=== PATIENT | male | born 1970 | race Hispanic/Latino ===

== ENCOUNTER 2018-07-05 11:04 | Inpatient (IN) | payer OTHER ==
--- OUTSIDE RECORDS SUMMARY | 2018-07-05 11:09 | XMS REPORT | Continuity of Care Document ---
:1970 Author Organization Interface Problems Problem Status Onset Classification Date Comments Source Date Reported Discharge 02/06/20 02/13/2016 Diagnosis: [facility] VOMITTING, COUGH Active 02/06/20 WITH BLOOD 16 [facility] Discharge 08/10/19 08/13/2015 Diagnosis: 16 [facility] Cholelithiasis Discharge 08/10/19 08/13/2015 Diagnosis: 16 [facility] Abdominal pain ABDOMINAL PAIN Active 08/10/19 16 [facility] Discharge 09/01/19 09/04/2014 Diagnosis: 15 [facility] Conjunctivitis PINK EYE, Active 09/01/19 CONGESTION 15 [facility] EAR PAIN Active 09/21/19 14 [facility] LOWER BACK PAIN/ Active 03/31/19 INJURY 14 [facility] Abscess Resolved Problem 02/13/2016 [facility] Diabetes mellitus Resolved Problem 02/13/2016 [facility] Has seen Resolved Problem 02/13/[address] - [facility] diabetes Hyperlipidemia Resolved Problem 02/13/2016 [facility] Hypertension Resolved Problem 02/13/2016 [facility] Abdominal hernia Resolved Problem 02/13/2016 [facility] OTHER NONSPECIFIC Active ABNORMAL FINDING [facility] OF Medications Medication Details Route Status Patient Ordering Order Source Instructions Provider Date Protonix 40 mg, 1 tab, Inactive Route: PO, 2015 [facility] Drug form: ECTAB, Before Dinner, Start date: 02/10/16 16:30:00 SECURITY COORDINATOR, Duration: 30 day, Stop date: 03/10/16 16:30:00 CSTNotes: Tablet should not be chewed or crushed. (Same as: Protonix) Amoxicillin 875 MG 875 mg=1 tab, Active / Clavulanate 125 PO, Q12H, # 20 2015 [facility] MG Oral Tablet tab, 0 [Augmentin 875-mg] Refill(s) doxycycline 100 mg=1 tab, Inactive monohydrate 100 mg PO, Q12H, X 10 2015 oral tablet day, # 20 tab, 0 Refill(s) Ciprofloxacin 500 500 mg=1 tab, Active 12/23/ [facility] Oral Tablet PO, Q12H, X 10 2015 [facility] [Cipro] day, # 20 tab, 0 Refill(s) 200 ACTUAT 2 puff, Active Albuterol 0.09 INHALATION, 2016 [facility] MG/ACTUAT Metered Q6H, PRN for Dose Inhaler shortness of breath or wheezing, # 9 gm, 0 Refill(s) Acetaminophen 325 1 tab, PO, Active 02/09/ [facility] MG / Hydrocodone Q6H, PRN for 2016 [facility] Bitartrate 10 MG pain, # 30 Oral Tablet [[place] tab, 0 10/325] Refill(s), given to patient tramadol 50 mg, PO, Active 02/09/ [facility] hydrochloride 50 Q6H, PRN Pain, 2016 [facility] MG Oral Tablet X 7 day, # 30 tab, 0 Refill(s) Levemir FlexPen 20 unit, 0.2 No Longer mL, Route: Active 2015 [facility] SUB-Q, Drug form: INJ, Bedtime, Dosing Weight 77.528, kg, Start date: 02/09/16 21:00:00 SECURITY COORDINATOR, Duration: 30 day, Stop date: 03/09/16 21:00:00 CSTNotes: Same as Levemir Do not hold insulin without contacting prescriber WASTE: F/P - Black; E - [employer] "single patient use only" tramadol 50 mg, 1 tab, No Longer hydrochloride 50 Route: PO, Active 2015 [facility] MG Oral Tablet Drug form: TAB, Q4H, Dosing Weight 77.528, kg, PRN Pain Score 1-3, Start date: 02/09/16 18:56:00 SECURITY COORDINATOR, Duration: 30 day, Stop date: 03/10/16 18:55:00 CSTNotes: Not to exceed 400mg/day. (Same As: [facility]) Acetaminophen 325 2 tab, Route: No Longer 02/09/ [facility] MG / Hydrocodone PO, Drug Form: Active 2015 [facility] Bitartrate 5 MG TAB, Dosing Oral Tablet Weight 80.455, kg, Q4H, PRN Pain Score 4-6, Start date: 02/09/16 18:56:00 SECURITY COORDINATOR, Duration: 30 day, Stop date: 03/10/16 18:55:00 CSTNotes: (Same as: [place] 325/5) Do not exceed 4gm/day of acetaminophen. Iohexol 50 mL, Route: Inactive PO, Drug Form: 2015 [facility] SOLN, Dosing Weight 77.528, kg, ONCE, STAT, Start date: 02/09/16 15:14:00 SECURITY COORDINATOR, Stop date: 02/09/16 15:14:00 SECURITY COORDINATOR Morphine 4 mg, 1 mL, No Longer Route: IVP, Active 2015 [facility] Drug form: INJ, Q4H, Dosing Weight 80.455, kg, PRN Pain Score 7-10, Priority: NOW, Start date: 02/09/16 14:15:00 SECURITY COORDINATOR, Duration: 30 day, Stop date: 03/10/16 14:14:00 CSTNotes: (Same as:MORPhine Sulfate) Insulin, Aspart, 8 unit, 0.08 No Longer Human mL, Route: Active 2015 [facility] SUB-Q, Drug form: SOLN, TID-Before Meals, Dosing Weight 77.528, kg, Start date: 02/09/16 7:30:00 SECURITY COORDINATOR, Duration: 30 day, Stop date: 03/09/16 16:30:00 CSTNotes: Roll in palms of hands gently; Do not shake vigorously. (Same as: NovoLOG) "single patient use only" WASTE: F/P - Black; E - [employer] Trash [employer] Stable for 28 days at room temperature. Expires in days from Date Phenergan 12.5 mg, 50 No Longer mL, Route: Active 2015 [facility] IVPB, Drug form: SOLN, Q4H, Dosing Weight 77.528, kg, PRN Other -See Comment, Start date: 02/08/16 8:00:00 SECURITY COORDINATOR, Duration: 30 day, Stop date: 03/09/16 7:59:00 SECURITY COORDINATOR Meperidine 12.5 mg, 0.5 Inactive mL, Route: 2015 [facility] IVP, Drug form: INJ, Q30Min, Dosing Weight 77.528, kg, PRN Other -See Comment, For shivering, Start date: 02/08/16 7:00:00 SECURITY COORDINATOR, Duration: 2 doses or times, Stop date: 02/08/16 15:00:00 CSTNotes: (Same as: Demerol) "Use Precaution in Elderly, Seizure disorders, and Renal impairment" Diphenhydramine 12.5 mg, 0.25 Inactive mL, Route: 2015 [facility] IVP, Drug form: INJ, Q6H, Dosing Weight 77.528, kg, PRN Itching, Start date: 02/08/16 7:00:00 SECURITY COORDINATOR, Stop date: 02/08/16 20:00:00 CSTNotes: (Same as: Benadryl) Glycopyrrolate 0.2 mg, 1 mL, Inactive Route: IVP2015 [facility] Drug form: INJ, Q5Min, Dosing Weight 77.528, kg, PRN Bradycardia, Start date: 02/08/16 7:00:00 SECURITY COORDINATOR, Duration: 3 doses or times, Stop date: 02/08/16 20:00:00 CSTNotes: (Same as: Isabel) Naloxone 0.4 mg, 1 mL, Inactive Route: IVP2015 [facility] Drug form: INJ, Q2MIN, Dosing Weight 77.528, kg, PRN Narcotic Reversal, Start date: 02/08/16 7:00:00 SECURITY COORDINATOR, Duration: 8 doses or times, Stop date: 02/08/16 20:00:00 CSTNotes: Same as Narcan Albuterol 0.83 2.49 mg, 0.5 Inactive MG/ML Inhalant mL, Route: 2015 [facility] Solution NEB, Drug form: SOLN, Q20Min, Dosing Weight 77.528, kg, PRN Wheezing, Priority: STAT, Start date: 02/08/16 7:00:00 SECURITY COORDINATOR, Stop date: 02/08/16 20:00:00 CSTNotes: SEE RT DOCUMENTATION MEDICATION WASTE Product Size: 2.5 mg Product Wasted: ___ mg Labetalol 10 mg, 2 mL, Inactive Route: IVP, 2015 [facility] Drug form: INJ, Q5Min, Dosing Weight 77.528, kg, PRN Elevated BP, Start date: 02/08/16 7:00:00 SECURITY COORDINATOR, Duration: 5 doses or times, Stop date: 02/08/16 20:00:00 CSTNotes: (Same as: Normodyne, Trandate) Push over 2 minutes Give bolus over 2-3 minutes. Hydralazine 10 mg, 0.5 mL, Inactive Route: IVP2015 [facility] Drug form: INJ, Q20Min, Dosing Weight 77.528, kg, PRN Elevated BP, Start date: 02/08/16 7:00:00 SECURITY COORDINATOR, Duration: 2 doses or times, Stop date: 02/08/16 20:00:00 CSTNotes: (Same as: Apresoline) Push over 5 minutes Oxycodone 5 mg, 1 tab, Inactive Route: PO, 2015 [facility] Drug form: TAB, Q4H, Dosing Weight 77.528, kg, PRN Pain Score 4-6, Start date: 02/08/16 7:00:00 SECURITY COORDINATOR, Stop date: 02/08/16 20:00:00 CSTNotes: (Same as: Roxicodone) Acetaminophen 1,000 mg, 2 No Longer tab, Route: Active 2015 [facility] PO, Drug form: TAB, ONCE, Dosing Weight 77.528, kg, PRN Pain Score 1-3, Start date: 02/08/16 7:00:00 SECURITY COORDINATOR, Duration: 1 doses or times, Stop date: Limited # of timesNotes: Max acetaminophen 4000 mg/day (4 gm/day). (Same as: Tylenol Extra Strength) Morphine 2 mg, 1 mL, Inactive Route: IVP2015 [facility] Drug form: INJ, Q5Min, Dosing Weight 77.528, kg, PRN Pain Score 4-6, Start date: 02/08/16 7:00:00 SECURITY COORDINATOR, Duration: 5 doses or times, Stop date: 02/08/16 20:00:00 CSTNotes: (Same as:MORPhine Sulfate) Metoprolol 1 mg, 1 mL, Inactive Route: IVP2015 [facility] Drug form: INJ, Q5Min, Dosing Weight 77.528, kg, PRN Other -See Comment, Start date: 02/08/16 7:00:00 SECURITY COORDINATOR, Duration: 5 doses or times, Stop date: 02/08/16 20:00:00 CSTNotes: (Same as: Lopressor) Push over 2 minutes Flumazenil 0.2 mg, 2 mL, Inactive Route: IVP2015 [facility] Drug form: INJ, PRN, Dosing Weight 77.528, kg, PRN Benzodiazepine Reversal, Initial dose, Start date: 02/08/16 7:00:00 SECURITY COORDINATOR, Stop date: 02/08/16 20:00:00 CSTNotes: (Same as: Romazicon) Ondansetron 4 mg, 2 mL, No Longer Route: IVP, Active 2015 [facility] Drug form: INJ, ONCE, Dosing Weight 77.528, kg, PRN Nausea & Vomiting, Start date: 02/08/16 7:00:00 CSTNotes: (Same as: Zofran) MEDICATION WASTE Product Size: 4 mg Product Wasted: ___ mg Promethazine 6.25 mg, 50 No Longer mL, Route: Active 2015 [facility] IVPB, Drug form: SOLN, ONCE, Dosing Weight 77.528, kg, PRN Nausea & Vomiting, Start date: 02/08/16 7:00:00 SECURITY COORDINATOR Dexamethasone 4 mg, 1 mL, No Longer Route: IVP, Active 2015 [facility] Drug form: INJ, ONCE, Dosing Weight 77.528, kg, PRN Nausea & Vomiting, Start date: 02/08/16 7:00:00 CSTNotes: Concentration: 4mg/ml Midazolam 1 mg, 1 mL, Inactive Route: IVP2015 [facility] Drug form: INJ, Q5Min, Dosing Weight 77.528, kg, PRN Anxiety, Start date: 02/08/16 7:00:00 SECURITY COORDINATOR, Duration: 2 doses or times, Stop date: 02/08/16 20:00:00 CSTNotes: (Same as: Versed) MEDICATION WASTE Product Size: 2 mg Product Wasted: ___ mg Lidocaine 5 mL, Route: Inactive NEB, Drug 2015 [facility] Form: SOLN, Dosing Weight 77.528, kg, ONCE, Start date: 02/08/16 7:00:00 SECURITY COORDINATOR, Stop date: 02/08/16 7:00:00 SECURITY COORDINATOR sodium chloride 1,000 mL, No Longer 0.9% 1000 ml INJ Rate: 40 2015 [facility] 1,000 mL ml/hr, Infuse over: 25 hr, Route: IV, Dosing Weight 77.528 kg, Total Volume: 1,000, Start date: 02/08/16 6:52:00 SECURITY COORDINATOR, Duration: 1 doses or times, Stop date: 02/09/16 7:51:00 SECURITY COORDINATOR azithromycin 500 500 mg, 2 tab, No Longer mg oral tablet Route: PO, 2015 [facility] Drug form: TAB, Daily, Dosing Weight 77.528, kg, Start date: 02/07/16 16:00:00 SECURITY COORDINATOR, Duration: 30 day, Stop date: 03/07/16 16:00:00 CSTNotes: Take 1 hour before or 2 hours after meals. (Same As: Zithromax) Robitussin-AC oral 10 ml, Route: No Longer syrup PO, Drug Form: Active 2015 [facility] LIQ, Dosing Weight 80.455, kg, Q4H, NOW, Start date: 02/07/16 9:26:00 SECURITY COORDINATOR, Duration: 30 day, Stop date: 03/08/16 8:00:00 CSTNotes: (Same As: Robitussin AC) Tessalon Perles 200 mg, 2 cap, No Longer Route: PO, 2015 [facility] Drug form: CAP, TID, Dosing Weight 80.455, kg, Start date: 02/06/16 22:00:00 SECURITY COORDINATOR, Duration: 30 day, Stop date: 03/07/16 14:00:00 CSTNotes: (Same As: Tessalon Perles) "Do Not Crush" metoprolol 25 mg, 1 tab, No Longer tartrate Route: PO, Active 2015 [facility] Drug form: TAB, Q12H, Dosing Weight 80.455, kg, Start date: 02/06/16 21:00:00 SECURITY COORDINATOR, Duration: 30 day, Stop date: 03/07/16 9:00:00 CSTNotes: (Same as: Lopressor) Levemir FlexPen 10 unit, 0.1 No Longer mL, Route: Active 2015 [facility] SUB-Q, Drug form: INJ, Bedtime, Dosing Weight 77.528, kg, Start date: 02/06/16 21:00:00 SECURITY COORDINATOR, Stop date: 03/06/16 21:00:00 CSTNotes: Same as Levemir Do not hold insulin without contacting prescriber WASTE: F/P - Black; E - [employer] "single patient use only" Protonix 40 mg, Route: No Longer IVP, Drug Active 2015 [facility] form: INJ, Before Dinner, Dosing Weight 80.455, kg, Start date: 02/06/16 16:30:00 SECURITY COORDINATOR, Stop date: 03/06/16 16:30:00 CSTNotes: For IV push reconstitute with 10 ml 0.9% sodium chloride and push over 2 minutes. (Same as: Protonix) Hydralazine 10 mg, 0.5 mL, No Longer Route: IVP, Active 2015 [facility] Drug form: INJ, Q4H, Dosing Weight 80.455, kg, PRN Hypertension, sbp>160 or dbp>110, Start date: 02/06/16 15:03:00 SECURITY COORDINATOR, Duration: 30 day, Stop date: 03/07/16 15:02:00 CSTNotes: (Same as: Apresoline) Push over 5 minutes Robitussin-AC oral 10 ml, Route: No Longer syrup PO, Drug Form: Active 2015 [facility] LIQ, Dosing Weight 80.455, kg, Q4H, PRN Cough, Start date: 02/06/16 15:01:00 SECURITY COORDINATOR, Duration: 30 day, Stop date: 03/07/16 15:00:00 CSTNotes: (Same As: Robitussin AC) Insulin, Aspart, 3 unit, 0.03 No Longer Human mL, Route: Active 2015 [facility] SUB-Q, Drug form: SOLN, Bedtime, Dosing Weight 80.455, kg, PRN Blood Glucose Results, Start date: 02/06/16 14:51:00 SECURITY COORDINATOR, Duration: 30 day, Stop date: 03/07/16 14:50:00 CSTNotes: Roll in palms of hands gently; Do not shake vigorously. (Same as: NovoLOG) "single patient use only" WASTE: F/P - Black; E - [employer] Trash [employer] Stable for 28 days at room temperature. Expires in days from Date Glucagon 1 mg, Route: No Longer IM, Drug form: Active 2015 [facility] PDR/INJ, PRN, Dosing Weight 80.455, kg, PRN Blood Glucose Results, Start date: 02/06/16 14:51:00 SECURITY COORDINATOR, Duration: 30 day, Stop date: 03/07/16 14:50:00 SECURITY COORDINATOR Dextrose 50% 25 gm, 50 mL, No Longer Syringe Route: IVP, Active 2015 [facility] Drug Form: INJ, Dosing Weight 80.455, kg, PRN, PRN Blood Glucose Results, Start date: 02/06/16 14:51:00 SECURITY COORDINATOR, Duration: 30 day, Stop date: 03/07/16 14:50:00 SECURITY COORDINATOR Ceftriaxone 2 gm, Route: No Longer IVPB, [id number], 2015 [facility] Dosing Weight 80.455, kg, Start date: 02/06/16 14:00:00 SECURITY COORDINATOR, Duration: 30 day, Stop date: 03/06/16 14:00:00 CSTNotes: (Same As: Rocephin). Use with 100 mL NS and infuse over 30 min MEDICATION WASTE Product Size: 2000 mg Product Wasted: ___ mg Azithromycin 500 mg, Route: No Longer IVPB, [id number], 2015 [facility] Dosing Weight 80.455, kg, Start date: 02/06/16 14:00:00 SECURITY COORDINATOR, Duration: 30 day, Stop date: 03/06/16 14:00:00 CSTNotes: (Same As: Zithromax IV) Saline Flush 0.9% 10 ml, Route: No Longer IVP, Drug Active 2015 [facility] Form: INJ, Dosing Weight 80.455, kg, PRN, PRN Line Flush, Start date: 02/06/16 13:17:00 SECURITY COORDINATOR, Duration: 30 day, Stop date: 03/07/16 13:16:00 CSTNotes: (Same as: BD Posiflush) Sodium Chloride 1,000 mL, No Longer 0.154 MEQ/ML Rate: 100 Active 2015 [facility] Injectable ml/hr, Infuse Solution over: 10 hr, Route: IV, Dosing Weight 80.455 kg, Total Volume: 1,000, Start date: 02/06/16 13:17:00 SECURITY COORDINATOR, Duration: 30 day, Stop date: 03/07/16 13:16:00 SECURITY COORDINATOR Acetaminophen 650 mg, 2 tab, No Longer Route: PO, 2015 [facility] Drug form: TAB, Q4H, Dosing Weight 80.455, kg, PRN Pain 1-3/Temp > 100.4 F, Start date: 02/06/16 13:17:00 SECURITY COORDINATOR, Duration: 30 day, Stop date: 03/07/16 13:16:00 CSTNotes: Do not exceed 4 gm/day. (Same as: Tylenol) Acetaminophen 325 1 tab, Route: No Longer MG / Hydrocodone PO, Drug Form: 2015 [facility] Bitartrate 5 MG TAB, Dosing Oral Tablet Weight 80.455, kg, Q4H, PRN Pain Score 4-6, Start date: 02/06/16 13:17:00 SECURITY COORDINATOR, Duration: 30 day, Stop date: 03/07/16 13:16:00 CSTNotes: (Same as: [place] 325/5) Do not exceed 4gm/day of acetaminophen. Morphine 2 mg, 1 mL, No Longer Route: IVP, 2015 [facility] Drug form: INJ, Q4H, Dosing Weight 80.455, kg, PRN Pain Score 7-10, Start date: 02/06/16 13:17:00 SECURITY COORDINATOR, Duration: 30 day, Stop date: 03/07/16 13:16:00 CSTNotes: (Same as:MORPhine Sulfate) Docusate 100 mg, 1 cap, No Longer Route: PO, 2015 [facility] Drug form: CAP, BID, Dosing Weight 80.455, kg, PRN Constipation, Start date: 02/06/16 13:17:00 SECURITY COORDINATOR, Duration: 30 day, Stop date: 03/07/16 13:16:00 CSTNotes: (Same as: Colace) (Do Not Crush) Ondansetron 4 mg, 2 mL, No Longer Route: IVP, 2015 [facility] Drug form: INJ, Q6H, Dosing Weight 80.455, kg, PRN Nausea & Vomiting, Start date: 02/06/16 13:17:00 SECURITY COORDINATOR, Duration: 30 day, Stop date: 03/07/16 13:16:00 CSTNotes: (Same as: Zoan) MEDICATION WASTE Product Size: 4 mg Product Wasted: ___ mg Fentanyl 50 microgram, Inactive 1 mL, Route: 2015 [facility] IVP, Drug form: INJ, ONCE, Dosing Weight 80.455, kg, Priority: STAT, Start date: 02/06/16 11:47:00 SECURITY COORDINATOR, Stop date: 02/06/16 11:47:00 CSTNotes: (Same as: Sublimaze) Preservative free. 200 ACTUAT 2 puff, Active Albuterol 0.09 INHALATION, 2015 MG/ACTUAT Metered QID, PRN for Dose Inhaler wheezing / coughing, # 25 gm, 0 Refill(s) Codeine Phosphate 10 ml, PO, No Longer 2 MG/ML / Q4H, PRN for Active 2015 Guaifenesin 20 cough, X 5 MG/ML Oral day, # 300 mL, Solution 0 Refill(s) [Cheratussin] Levofloxacin 750 750 mg=1 tab, Active MG Oral Tablet PO, Q24H, X 10 2015 [Levaquin] day, # 10 tab, 0 Refill(s) benzonatate 200 MG 200 mg=1 cap, Active Oral Capsule PO, TID, X 7 2015 [Tessalon] day, # 21 cap, 0 Refill(s) Levaquin 750 mg, 150 Inactive MH mL, Route: 2015 [facility] IVPB, Drug form: SOLN, ONCE, Dosing Weight 80.455, kg, Start date: 02/06/16 5:55:00 SECURITY COORDINATOR, Stop date: 02/06/16 5:55:00 CSTNotes: (Same as:Levaquin) Sodium Chloride 1,000 mL, Inactive MH 0.154 MEQ/ML 1,000 ml/hr, 2015 Injectable Infuse Over: 1 Solution hr, Route: IV, 1,000, Drug form: INJ, ONCE, Priority: STAT, Dosing Weight 80.455 kg, Start date: 02/06/16 5:34:00 SECURITY COORDINATOR, Duration: 1 doses or times, Stop date: 02/06/16 5:34:00 SECURITY COORDINATOR Acetaminophen 300 2 tab, Route: Inactive MG / Codeine PO, Drug Form: 2015 [facility] Phosphate 30 MG TAB, Dosing Oral Tablet Weight 80.455, [Tylenol with kg, ONCE, Codeine #3] Start date: 02/06/16 4:53:00 SECURITY COORDINATOR, Stop date: 02/06/16 4:53:00 CSTNotes: Do not exceed 4gm/day of acetaminophen. (Same as: Tylenol with Codeine # 3) methylPREDNISolone 125 mg, 2 mL, Inactive SODium SUCCinate Route: IVP, 2015 [facility] Drug form: INJ, ONCE, Dosing Weight 80.455, kg, Start date: 02/06/16 4:52:00 SECURITY COORDINATOR, Stop date: 02/06/16 4:52:00 CSTNotes: (Same as:Solu-MEDROL , A-Methapred) Diphenhydramine 50 mg, 1 mL, Inactive Route: IVP, 2015 [facility] Drug form: INJ, ONCE, Dosing Weight 80.455, kg, Start date: 02/06/16 4:52:00 SECURITY COORDINATOR, Stop date: 02/06/16 4:52:00 CSTNotes: (Same as: Benadryl) Famotidine 20 mg, 2 mL, Inactive Route: IVP, 2015 [facility] Drug form: INJ, ONCE, Dosing Weight 80.455, kg, Start date: 02/06/16 4:52:00 SECURITY COORDINATOR, Stop date: 02/06/16 4:52:00 CSTNotes: (Same as: Pepcid) Can be dilute in 5-10cc NS IVP: Slow IV push over at least 2 minutes. 12 HR 10 mL, Route: Inactive Chlorpheniramine PO, Drug Form: 2015 [facility] Maleate 1.6 MG/ML SUSPER, Dosing / Hydrocodone Weight 79.545, Bitartrate 2 MG/ML kg, ONCE, Extended Release Start date: Suspension 02/06/16 [Tussionex 4:46:00 SECURITY COORDINATOR, [facility]] Stop date: 02/06/16 4:46:00 CSTNotes: (chlorpheniram ine-hydrocodon e 8-10mg/5ml LIQ) Non-formulary drug. (Same As: Tussionex [facility]) Prednisone 60 mg, 3 tab, Inactive Route: PO, 2015 [facility] Drug form: TAB, ONCE, Dosing Weight 79.545, kg, Priority: STAT, Start date: 02/06/16 4:46:00 SECURITY COORDINATOR, Stop date: 02/06/16 4:46:00 CSTNotes: Take with food. Albuterol 0.833 9 mL, Route: Inactive MG/ML / INHALATION, 2015 [facility] Ipratropium Drug Form: Salters 0.167 SOLN, Dosing MG/ML Inhalant Weight 79.545, Solution [DuoNeb] kg, ONCE, Start date: 02/06/16 4:46:00 SECURITY COORDINATOR, Stop date: 02/06/16 4:46:00 CSTNotes: (Same as: Duoneb) Saline Flush 0.9% 10 mL, Route: Inactive IVP, Drug 2015 [facility] Form: INJ, Dosing Weight 79.545, kg, PRN, PRN Line Flush, Start date: 02/06/16 4:45:00 SECURITY COORDINATOR, Duration: 30 day, Stop date: 03/07/16 4:44:00 CSTNotes: (Same as: BD Posiflush) Ondansetron 4 MG 4 mg=1 tab, Active Disintegrating PO, TID, 2015 [facility] Tablet [Zofran] Dissolve tab under tongue, X 3 day, # 9 tab, 0 Refill(s) Dicyclomine 10 mg=1 cap, Active Hydrochloride 10 PO, QID-Before 2016 [facility] Oral Capsule Meals, # 28 [Bentyl] cap, 0 Refill(s) tramadol 50 mg=1 tab, Active hydrochloride 50 PO, BID, X 5 2016 [facility] MG Oral Tablet day, # 10 tab, 0 Refill(s) Morphine 4 mg, Route: Inactive IVP, ONCE, 2015 [facility] Dosing Weight 79.545, kg, Priority: STAT, Start date: 08/10/15 15:48:00 CDT, Stop date: 08/10/15 15:48:00 CDT Ondansetron 4 mg, Route: Inactive IVP, ONCE, 2015 [facility] Dosing Weight 79.545, kg, Priority: STAT, Start date: 08/10/15 15:48:00 CDT, Stop date: 08/10/15 15:48:00 CDT Saline Flush 0.9% 10 mL, Route: Inactive IVP, Drug 2015 [facility] Form: INJ, Dosing Weight 79.545, kg, Q12H, PRN Line Flush, Start date: 08/10/15 15:48:00 CDT, Duration: 30 day, Stop date: 09/09/15 15:47:00 CDTNotes: (Same as: BD Posiflush) Sodium Chloride 1,000 mL, Inactive 0.154 MEQ/ML 2,000 ml/hr, 2015 [facility] Injectable Infuse Over: Solution 30 minutes, Route: IV, ONCE, Priority: STAT, Dosing Weight 79.545 kg, Start date: 08/10/15 15:48:00 CDT, Duration: 1 doses or times, Stop date: 08/10/15 15:48:00 CDT bacitracin-polymyx 1 appl, BOTH No Longer in B ophthalmic EYES, QID, # 3 Active 2014 [facility] ointment gm, 0 Refill(s) Motrin 800 mg oral 800 mg=1 tab, Active tablet PO, Q8H, Pain, 2013 [facility] Take with food, # 30 tab, 0 Refill(s)Take with food acetaminophen-hydr 1-2 tab, PO, Active s ocodone 325 mg-5 Q4-6H, Pain, # 2014 [facility] mg oral tablet 15 tab, 0 Refill(s) [place] 5/325 oral 2 tab, Route: Inactive tablet PO, Drug Form: 2013 [facility] TAB, Dosing Weight 85.455, kg, ONCE, Start date: 04/01/13 15:42:00, Stop date: 04/01/13 15:42:00(Same as: [place] 325/5) Do not exceed 4gm/day of acetaminophen. Motrin 800 mg, 2 tab, Inactive [place] Route: PO, 2013 [facility] Drug form: TAB, ONCE, Dosing Weight 85.455, kg, Priority: STAT, Start date: 04/01/13 15:42:00, Stop date: 04/01/13 15:42:00(Same as: Motrin) "Do Not Crush" Give with food. Allergies, Adverse Reactions, Alerts Substance Category Reaction Severity Reaction Status Date Comments Source type Reported iodinated Assertion Drug Active radiocontrast allergy [facility] dyes Iodine Mild Assertion Drug Active allergy [facility] Immunizations Immunization Date Given Site Status Last Updated Comments Source influenza virus 02/10/2016 Not Given [facility] vaccine, inactivated Results Order Name Results Value Reference Date Interpretation Comments Source Range CHEM PANEL Phosphorus 3.3 mg/dL 2.5 - 4.5 02/09 [facility] CHEM PANEL Magnesium 1.8 mg/dL 1.8 - 2.4 02/09 Lvl [facility] ELECTROLYT CO2 27 meq/L 24 - 32 02/09 [facility] ELECTROLYT Calcium Lvl 8.7 mg/dL 8.5 - 10.5 02/09 ES [facility] ELECTROLYT AGAP 10.8 meq/L 10.0 - 02/09 ES 20.0 [facility] ELECTROLYT Chloride Lvl 104 meq/L 95 - 109 02/09 [facility] ELECTROLYT eGFR 56 02/09 Result Comment: The eGFR is calculated using the CKD-EPI formula. In most young, healthy individuals the eGFR will be >90 mL/ min/1.73m2. The eGFR declines with age. An eGFR of 60-89 may be normal in [facility] mL/min/1.7 /2016 some populations, particularly the elderly, for whom the CKD-EPI formula has not been extensively validated. Use of the eGFR is not recommended in the following populations: [facility] 3m2 Individuals with unstable creatinine concentrations, including patients and those with serious co-morbid conditions. Patients with extremes in muscle mass or diet. The data above are obtained from the National Kidney Disease Education Program (NKDEP) which additionally recommends that when the eGFR is used in patients with extremes of body mass index for purposes of drug dosing, the eGFR should be multiplied by the estimated BMI. ELECTROLYT Potassium 3.8 meq/L 3.5 - 5.1 02/09 ES Lvl /2015 [facility] ELECTROLYT Sodium Lvl 138 meq/L 135 - 145 02/09 MH ES /2015 [facility] ELECTROLYT Creatinine 1.51 mg/dL 0.50 - 02/09 MH ES Lvl 1.40 /2015 [facility] ELECT[facility] BUN 22 mg/dL 7 - 22 02/09 ES /2015 [facility]LECT[facility] Glucose Lvl 130 mg/dL 70 - 99 02/09 MH ES /2015 [facility] HEMATOLOGY WBC 8.9 K/CMM 3.7 - 10.4 02/09 /2015 [facility] HEMATOLOGY RBC 4.85 M/CMM 4.70 - 02/09 MH 6.10 /2015 [facility] HEMATOLOGY MCV 87.1 fL 80.0 - 02/09 MH 94.0 /2015 [facility] HEMATOLOG[facility] MCHC 32.7 g/dL 32.0 - 02/09 MH 36.0 /2015 [facility] HEMATOLOGY Platelet 251 K/CMM 133 - 450 02/09 [facility]EM[facility] RDW 13.1 % 11.5 - 02/09 MH 14. [facility] Hct 42.2 % 42.0 - 02/09 MH 54.0 /2015 [facility] HEMATOLOG[facility] Hgb 13.8 g/dL 14.0 - 02/09 MH 18.0 /2015 [facility] HEMATOLOG[facility] MPV 7.1 fL 7.4 - 10.4 02/09 /2015 [facility]EMAT[facility] MCH 28.5 pg 27.0 - 02/09 MH 31.0 [facility] HEMAT[facility] Monocytes 5.9 % 2.0 - 12.0 02/09 [facility] Lymphocytes 41.2 % 20.0 - 02/09 MH 40.0 [facility] Basophils 0.5 % 0.0 - 1.0 02/09 [facility] Eosinophils 2.1 % 0.0 - 4.0 02/09 [facility] HEMATOLOG[facility] Segs-Bands # 4.5 K/CMM 1.5 - 8.1 02/09 [facility] HEMAT[facility] Lymphocytes 3.7 K/CMM 1.0 - 5.5 02/09 MH /2015 [facility] HEMATOLOGY Eosinophils 0.2 K/CMM 0.0 - 0.5 02/09 MH # /2015 [facility] HEMATOLOGY Monocytes # 0.5 K/CMM 0.0 - 0.8 02/09 /2015 [facility] HEMATOLOGY Segs 50.3 % 45.0 - 02/09 MH 75.0 [facility] Chest Chest 1view Clinical Indication: Abnormal chest sounds; 02/09 - 1view DX DX - [facility] Comparison: 02/08/2016 Read by: Jarrod Lopez MD Dictated Date/time: 02/10/16 06:56 FINDINGS: Electronically Signed by: Jarrod Lopez MD 02/10/16 06:58 FINAL REPORT AP chest radiographs shows normal lung volumes with right basilar atelectasis versus infiltrate which has slightly worsened than the previous exam. The left lung field remains clear. There is no evidence of a pneumothorax.. The heart size and pulmonary vasculature are normal. The trachea is midline. There are no clinically significant osseous abnormalities noted. IMPRESSION: 1. Right lower lobe atelectasis versus early infiltrate which has slightly worsened. SL: [id number] Scrotal/Te Scrotal/Test Clinical Indication: Scrotal pain of unknown origin 02/08 - sticle w icle w - [facility] Doppler US Doppler US Comparison: CT of the abdomen and pelvis dated 2015. Read by: Miguel Ángel Paris MD Dictated Date/time: 02/09/16 20:47 TECHNIQUE: Electronically Signed by: Miguel Ángel Paris MD 02/09/16 20:48 FINAL REPORT Sonographic evaluation of the scrotum and testes was performed using high resolution B-mode imaging as well as pulse and color Doppler imaging. FINDINGS: TESTES: The right testicle measures 4.9 x 2.9 x 2.2 cm. The left testicle measures 4.9 x 2.6 x 1.9 cm. There is normal bilateral testicular contour and morphology. There are no testicular masses or testicular calcifications. The Doppler images of the testicles show normal blood flow. EPIDIDYMIDES: Bilateral epididymal head, body and tail regions are unremarkable. SCROTUM: There is no hydrocele. There is no evidence of varicoceles. There is no scrotal edema. IMPRESSION: Unremarkable testicular ultrasound with normal testicular Doppler blood flow. SL: [id number] CHEM PANEL Lactic Acid 1.4 mMol/L 0.5 - 2.2 02/08 Lvl /2015 [facility] ELECTROLYT AGAP 11.0 meq/L 10.0 - 02/08 ES 20.0 [facility] ELECTROLYT eGFR 54 02/08 Result Comment: The eGFR is calculated using the CKD-EPI formula. In most young, healthy individuals the eGFR will be >90 mL/ min/1.73m2. The eGFR declines with age. An eGFR of 60-89 may be normal in mL/min/1.7 some populations, particularly the elderly, for whom the CKD-EPI formula has not been extensively validated. Use of the eGFR is not recommended in the following populations: [place] [id number] Individuals with unstable creatinine concentrations, including patients and those with serious co-morbid conditions. Patients with extremes in muscle mass or diet. The data above are obtained from the National Kidney Disease Education Program (NKDEP) which additionally recommends that when the eGFR is used in patients with extremes of body mass index for purposes of drug dosing, the eGFR should be multiplied by the estimated BMI. ELECTROLYT Sodium Lvl 139 meq/L 135 - 145 02/08 [facility] ELECTROLYT Potassium 4.0 meq/L 3.5 - 5.1 02/08 [facility] Lvl /2015 [facility] ELECTROLYT CO2 29 meq/L 24 - 32 02/08 [facility] ELECTROLYT Chloride Lvl 103 meq/L 95 - 109 02/08 [facility] ELECTROLYT Calcium Lvl 8.9 mg/dL 8.5 - 10.5 02/08 [facility] ELECTROLYT Creatinine 1.54 mg/dL 0.50 - 02/08 [facility] Lvl 1.40 [facility] ELECTROLYT BUN 24 mg/dL 7 - 22 02/08 [facility] ELECTROLYT Glucose Lvl 229 mg/dL 70 - 99 02/08 [facility] HEMATOLOGY MCV 85.8 fL 80.0 - 02/08 94.0 [facility] HEMATOLOGY Hgb 12.8 g/dL 14.0 - 02/08 18.0 [facility] HEMATOLOGY Hct 38.8 % 42.0 - 02/08 54.0 [facility] HEMATOLOGY RBC 4.52 M/CMM 4.70 - 02/08 6.10 [facility] HEMATOLOGY WBC 10.8 K/CMM 3.7 - 10.4 02/08 [facility] HEMATOLOGY Platelet 350 K/CMM 133 - 450 02/08 [facility] HEMATOLOGY MPV 6.5 fL 7.4 - 10.4 02/08 [facility] HEMATOLOGY RDW 13.3 % 11.5 - 02/08 14.5 /2015 [facility] MCH 28.2 pg 27.0 - 02/08 MH 31.0 /2016 [facility] HEMATOLOGY MCHC 32.9 g/dL 32.0 - 02/08 MH 36.0 /2016 [facility] HEMATOLOGY Basophils # 0.1 K/CMM 0.0 - 0.2 02/08 /2015 [facility] HEMATOLOGY Eosinophils 0.1 K/CMM 0.0 - 0.5 02/08 MH # /2016 [facility] HEMATOLOGY Monocytes # 0.8 K/CMM 0.0 - 0.8 02/08 /2015 [facility] HEMATOLOGY Lymphocytes 3.1 K/CMM 1.0 - 5.5 02/08 MH # /2016 [facility] HEMATOLOGY Segs-Bands # 6.8 K/CMM 1.5 - 8.1 02/08 /2015 [facility] HEMATOLOGY Basophils 0.6 % 0.0 - 1.0 02/08 /2015 [facility] HEMATOLOGY Eosinophils 0.6 % 0.0 - 4.0 02/08 /2015 [facility] Monocytes 7.7 % 2.0 - 12.0 02/08 /2015 [facility] Lymphocytes 28.6 % 20.0 - 02/08 40.0 /2015 [facility] HEMATOLOGY Segs 62.5 % 45.0 - 02/08 75.0 /2015 [facility] Abdomen/Pe Abdomen/Pelv Clinical Indication: Right lower lobe mass, incarcerated hernia and severe inguinal pain. 02/08 - lvis wo IV is wo IV /2015 - [facility] contrast contrast CT Comparison: CTA chest 02/06/2016. CT Read by: Nadir Navas MD Dictated Date/time: 02/09/16 16:42 TECHNIQUE: Helical imaging was performed diaphragm through the symphysis with multiplanar reformations obtained. Electronically Signed by: Nadir Navas MD 02/09/16 17:06 FINAL REPORT IV CONTRAST: None GI CONTRAST: None CT Radiation Dose DLP: 1070.01 mGy-cm. DLP means Dose Length Product, a radiation dose metric that does not report individual patient dose, but is a reference value related to the radiation output of the scanner used for this exam. FINDINGS: Evaluation of the viscera is suboptimal without intravenous contrast. LUNG BASES: There is a partially imaged mass that occupies the middle mediastinum, right hilum, bronchus intermedius, which results in right lower lobe atelectasis/collapse, and groundglass airspace opacity of the right middle lobe. LIVER: Homogenous, without border deforming lesion. A 1.7 cm hypodensity in segment 7 (series 2, image 19) does not measure simple fluid. This lesion enhances on the PE study, however this study, nor t he PE study is tailored to the evaluation of the liver. Biliary: No intrahepatic or extra hepatic biliary dilatation. Gallbladder: Contains a single 2.1 cm stone. No pericholecystic abdomen only. SPLEEN: The spleen is normal in size. PANCREAS: The pancreas has a grossly normal noncontrast appearance. ADRENAL GLANDS: The adrenal glands are normal. KIDNEYS AND URETERS: No urolithiasis, or hydroureteronephrosis. A 0.5 cm hypodensity in the posterior interpolar left kidney is too small to characterize. EG JUNCTION, STOMACH AND DUODENUM: Unremarkable Small bowel: Normal caliber. Large bowel: Redundant sigmoid colon. No pericolonic fat infiltration. Appendix: Normal. RETROPERITONEUM/PERITONEUM: There is no free fluid. No free air. LYMPH NODES: There are scattered lymph nodes in the fallon hepatis, aortocaval region, and paraaorta, the largest of which measures 1.2 cm (series 2 , image 79). VASCULATURE: Abdominal aorta is normal in caliber. BLADDER: The urinary bladder has a normal appearance given its degree of distention. MUSCULOSKELETAL: No acute osseous abnormality. Incidental 2.1 cm x 3.5 cm lipoma in the right obturator externus muscle. INGUINAL REGION: There is a small amount of fluid in the right inguinal canal. No evidence of fat or bowel herniating into the inguinal canals. IMPRESSION: 1. Small amount of fluid in the right inguinal canal. No signs of inguinal canal hernia. Otherwise, no obstructive findings in the abdomen and pelvis. 2. Right lower lobe atelectasis secondary to an obstructing mass in the middle mediastinum/right hilum/bronchus intermedius. Groundglass airspace opacity in the right middle lobe may represent postobstructive pneumonia. 3. Indeterminant 1.7 cm hepatic lesion (which enhances on the PE study) and scattered abdominal lymph nodes. These findings can be further assessed with a contrast enhanced CT, or PET CT. SL: [id number] CHEM PANEL Magnesium 2.0 mg/dL 1.8 - 2.4 02/07 Lvl /2016 [facility] ELECTROLYT Chloride Lvl 103 meq/L 95 - 109 02/07 ES [facility] ELECTROLYT AGAP 8.4 meq/L 10.0 - 02/07 ES 20.0 [facility] ELECTROLYT Calcium Lvl 9.0 mg/dL 8.5 - 10.5 02/07 ES [facility] ELECTROLYT CO2 28 meq/L 24 - 32 02/07 ES [facility] ELECTROLYT Glucose Lvl 114 mg/dL 70 - 99 02/07 ES [facility] ELECTROLYT BUN 21 mg/dL 7 - 22 02/07 ES [facility] ELECTROLYT Creatinine 1.52 mg/dL 0.50 - 02/07 ES Lvl 1.40 /2015 [facility] ELECTROLYT Sodium Lvl 135 meq/L 135 - 145 02/07 ES [facility] ELECTROLYT Potassium 4.4 meq/L 3.5 - 5.1 02/07 ES Lvl [facility] ELECTROLYT eGFR 55 02/07 Result Comment: The eGFR is calculated using the CKD-EPI formula. In most young, healthy individuals the eGFR will be >90 mL/ min/1.73m2. The eGFR declines with age. An eGFR of 60-89 may be normal in mL/min/1.7 some populations, particularly the elderly, for whom the CKD-EPI formula has not been extensively validated. Use of the eGFR is not recommended in the following populations: [facility] 3m2 Individuals with unstable creatinine concentrations, including patients and those with serious co-morbid conditions. Patients with extremes in muscle mass or diet. The data above are obtained from the National Kidney Disease Education Program (NKDEP) which additionally recommends that when the eGFR is used in patients with extremes of body mass index for purposes of drug dosing, the eGFR should be multiplied by the estimated BMI. HEMATOLOGY Eosinophils 1.6 % 0.0 - 4.0 02/07 [facility] HEMATOLOGY Lymphocytes 3.4 K/CMM 1.0 - 5.5 02/07 # [facility] HEMATOLOGY Basophils 0.3 % 0.0 - 1.0 02/07 [facility] HEMATOLOGY Monocytes # 0.6 K/CMM 0.0 - 0.8 02/07 [facility] HEMATOLOGY Segs-Bands # 5.3 K/CMM 1.5 - 8.1 02/07 [facility] HEMATOLOGY Segs 56.3 % 45.0 - 02/07 MH 75.0 /2016 [facility] HEMATOLOGY Monocytes 6.0 % 2.0 - 12.0 02/07 /2015 [facility] HEMATOLOGY Lymphocytes 35.8 % 20.0 - 02/07 MH 40.0 /2015 [facility] HEMATOLOGY Eosinophils 0.2 K/CMM 0.0 - 0.5 02/07 MH # /2016 [facility] HEMATOLOGY Platelet 363 K/CMM 133 - 450 02/07 [facility] HEMATOLOGY MPV 6.3 fL 7.4 - 10.4 02/07 [facility] HEMATOLOGY MCHC 33.0 g/dL 32.0 - 02/07 MH 36.0 /2015 [facility] HEMATOLOGY RDW 13.3 % 11.5 - 02/07 MH 14.5 /2015 [facility] HEMATOLOGY Hct 41.9 % 42.0 - 02/07 54.0 [facility] HEMATOLOGY MCV 86.1 fL 80.0 - 02/07 94.0 [facility] HEMATOLOGY RBC 4.87 M/CMM 4.70 - 02/07 6.10 [facility] HEMATOLOGY Hgb 13.8 g/dL 14.0 - 02/07 18.0 [facility] HEMATOLOGY WBC 9.4 K/CMM 3.7 - 10.4 02/07 [facility] MCH 28.4 pg 27.0 - 02/07 31.0 [facility] Chest Chest 1view Patient Name: MICHELLE FISHER 02/07 - 1view DX DX - [facility] : 1970; Age: 45 years y/o Male MR: [id number] Read by: Kalina Carranzaap Dictated Date/time: 02/08/16 08:34 Electronically Signed by: Kalina Carranza 02/08/16 08:35 FINAL REPORT Study: Chest 1view DX 02/08/2016 7:14 AM 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 The rest of the lung clark are clear. The cardiomediastinal silhouette is within normal limits. There are no clinically significant osseous abnormalities noted. IMPRESSION: Unchanged right lower lobe pneumonic consolidation. CHEM PANEL Phosphorus 2.4 mg/dL 2.5 - 4.5 02/06 MH /2015 [facility] CHEM PANEL Magnesium 2.0 mg/dL 1.8 - 2.4 02/06 Lvl /2015 [facility] SPECIAL Hgb A1C 6.9 % <=5.6 % 02/05 CHEMISTRY /2016 [facility] CARDIAC proBNP 40 pg/mL 0 - 125 02/05 ENZYMES /2016 [facility] TOXICOLOGY Etoh (%) null 02/05 [facility] TOXICOLOGY Ethanol Lvl null 02/05 [facility] CARDIAC CK MB 1.2 ng/mL 0.5 - 3.6 02/05 ENZYMES /2016 [facility] CARDIAC Troponin-I null 0.00 - 02/05 ENZYMES 0.40 /2015 [facility] CARDIAC Total CK 86 unit/L 12 - 191 02/05 ENZYMES [facility] CARDIAC CK MB Index 1.4 0.0 - 2.5 02/05 ENZYMES /2015 [facility] HEMATOLOGY PTT 26.0 s 22.9 - 02/05 MH 35.8 [facility] HEMATOLOGY PT 13.0 s 12.0 - 02/05 14.7 [facility] HEMATOLOGY INR 0.96 0.85 - 02/05 1.17 [facility] Chest Chest Clinical Indication: Dyspnea on exertion, hemoptysis 02/05 - Pulmonary Pulmonary /2015 - [facility] Embolism Embolism CTA Comparison: None CTA Read by: Simon Solomon DO Dictated Date/time: 02/06/16 09:59 TECHNIQUE: Sequential trans-axial images were obtained with a multi- detector helical CT after iodinated contrast administration. Coronal and sagittal reconstructions were obtained. 3-D MIP reconstructions performed. Electronically Signed by: Simon Solomon DO 10:10 FINAL REPORT 100 cc of Visipaque contrast material was used for the exam. CT Radiation Dose DLP 565 mGy-cm FINDINGS: LUNG PARENCHYMA AND PLEURA: There is a 8.3 x 4.5 x 4.8 cm heterogeneous lobulated mass in the right infrahilar region invading the mediastinum and encircling the right middle and lower lobe pulmonary ar mk and associated bronchus. There is partial postobstructive atelectasis in the right lower lobe. Lobulated extension of tumor is seen within the right bronchus intermedius. Irregular reticulonodular opacities are seen in the right middle and lower lobes. Findings are most consistent with large central lung neoplasm with possible endobronchial spread of tumor into right middle and lower lobes. There is calcified granuloma in the left lung. No other left lung nodules are visualized. There are no pleural effusions. There is no pneumothorax. AIRWAY: The central airway is normal. MEDIASTINUM: There are subcentimeter lymph nodes in the upper mediastinum and axilla. HEART: The heart size is within normal limits. There are no coronary artery calcifications. There is no pericardial effusion. VASCULAR STRUCTURES: There are no segmental pulmonary emboli noted. The main, right and left pulmonary arteries are normal. The great vessels are unremarkable. The thoracic aorta is normal in caliber wi th no atherosclerotic change. There is no thoracic aortic dissection or aneurysm. The superior vena cava is unremarkable. OSSEOUS STRUCTURES: There are no definite significant osseous abnormalities seen. VISUALIZED UPPER ABDOMEN: The visualized upper abdomen is unremarkable. IMPRESSION: 1. No CT evidence of pulmonary embolism. 2. 8.3 x 4.5 x 4.8 cm heterogeneous lobulated mass in the right infrahilar region most consistent with large central lung neoplasm with partial postobstructive atelectasis in the right middle and lower lobes and concern for endobronchial spread of tumor into right middle and lower lobes. Lobulated extension of tumor seen within right bronchus intermedius. SL: [id number] Chest 2 Chest 2 Clinical Indication: Coughing for one week, difficulty breathing. 02/05 - views DX views DX /2015 - [facility] Comparison: 12/16/2012 Read by: Shabbir Nguyen MD Dictated Date/time: 02/06/16 05:43 FINDINGS: Electronically Signed by: Shabbir Nguyen MD 02/06/16 05:44 FINAL REPORT PA and lateral views of the chest have been provided. Right basilar infiltrate without silhouetting of the right heart border likely represents a right lower lobe pneumonia. Heart size is normal. Central pulmonary vasculature appears normal. No effusion. No pneumothorax. Osseous structures demonstrate no acute abnormality. IMPRESSION: 1. Right lower lobe pneumonia SL: [id number] CHEM PANEL Lipase Lvl 220 unit/L 73 - 393 08/09 /2015 [facility] ELECTROLYT AGAP 12.1 meq/L 10.0 - 08/09 MH ES 20.0 /2015 [facility] ELECTROLYT Globulin 4.0 g/dL 2.0 - 4.0 06 [facility] A/G Ratio 0.8 0.7 - 1.6 08/09 [facility] B/C Ratio 12 6 - 25 08/09 [facility] Bili Total 0.5 mg/dL 0.2 - 1.3 08/09 [facility] Alk Phos 133 unit/L 39 - 136 08/09 [facility] AST 19 unit/L 0 - 37 08/09 [facility] E[facility] eGFR 54 08/09 Result Comment: The eGFR is calculated using the CKD-EPI formula. In most young, healthy individuals the eGFR will be >90 mL/ min/1.73m2. The eGFR declines with age. An eGFR of 60-89 may be normal in mL/min/1. some populations, particularly the elderly, for whom the CKD-EPI formula has not been extensively validated. Use of the eGFR is not recommended in the following populations: [facility] 3m2 Individuals with unstable creatinine concentrations, including patients and those with serious co-morbid conditions. Patients with extremes in muscle mass or diet. The data above are obtained from the National Kidney Disease Education Program (NKDEP) which additionally recommends that when the eGFR is used in patients with extremes of body mass index for purposes of drug dosing, the eGFR should be multiplied by the estimated BMI. ELECTROLYT Albumin Lvl 3.4 g/dL 3.5 - 5.0 08/09 [facility] ELECTROLYT ALT 44 unit/L 0 - 65 08/09 [facility] Calcium Lvl 8.8 mg/dL 8.5 - 10.5 08/09 [facility] ELECTROLY[facility] CO2 23 meq/L 24 - 32 08/09 [facility] ELECT[facility]OLY[facility] Total 7.4 g/dL 6.4 - 8.4 08/09 ES Protein [facility] ELECTROLYT Sodium Lvl 139 meq/L 135 - 145 08/09 [facility]LECTROLY[facility] Potassium 4.1 meq/L 3.5 - 5.1 08/09 ES Lvl [facility] ELECTROLYT Chloride Lvl 108 meq/L 95 - 109 08/09 [facility] Glucose Lvl 187 mg/dL 70 - 99 08/09 [facility] BUN 18 mg/dL 7 - 22 08/09 [facility] ELECTROLYT Creatinine 1.56 mg/dL 0.50 - 08/09 ES Lvl 1.40 /2015 [facility] HEMATOLOGY Eosinophils 0.3 K/CMM 0.0 - 0.5 08/09 MH # /2015 [facility] HEMATOLOGY Segs-Bands # 7.8 K/CMM 1.5 - 8.1 08/09 /2015 [facility] HEMATOLOGY Lymphocytes 1.4 K/CMM 1.0 - 5.5 08/09 MH # /2015 [facility] HEMATOLOGY Monocytes # 0.7 K/CMM 0.0 - 0.8 08/09 /2015 [facility] HEMATOLOGY Segs 76.7 % 45.0 - 08/09 MH 75.0 /2015 [facility] HEMATOLOGY Lymphocytes 13.4 % 20.0 - 08/09 MH 40.0 /2015 [facility] HEMATOLOGY Monocytes 7.2 % 2.0 - 12.0 08/09 /2015 [facility] HEMATOLOGY Eosinophils 2.5 % 0.0 - 4.0 08/09 /2015 [facility] HEMATOLOGY Basophils 0.2 % 0.0 - 1.0 08/09 /2015 [facility] HEMATOLOGY MCHC 32.9 g/dL 32.0 - 08/09 36.0 /2015 [facility] HEMATOLOGY RDW 13.9 % 11.5 - 08/09 14.5 /2015 [facility] HEMATOLOGY MCH 29.7 pg 27.0 - 08/09 31.0 /2015 [facility] HEMATOLOGY MPV 6.9 fL 7.4 - 10.4 08/09 /2015 [facility] HEMATOLOGY Platelet 286 K/CMM 133 - 450 08/09 /2015 [facility] HEMATOLOGY WBC 10.1 K/CMM 3.7 - 10.4 08/09 /2015 [facility] HEMATOLOGY RBC 5.49 M/CMM 4.70 - 08/09 6.10 [facility] HEMATOLOGY MCV 90.3 fL 80.0 - 08/09 94.0 /2015 [facility] HEMATOLOGY Hct 49.6 % 42.0 - 08/09 54.0 [facility] HEMATOLOGY Hgb 16.3 g/dL 14.0 - 08/09 18.0 /2015 [facility] Abdomen Abdomen RUQ Clinical Indication: Abdominal pain, acute 08/09 - RUQ US US /2015 - [facility] Comparison: None Read by: Jesus Romero MD Dictated Date/time: 08/10/15 16:41 TECHNIQUE: Electronically Signed by: Jesus Romero MD 08/10/15 16:44 FINAL REPORT Grayscale and limited color sonographic evaluation of the right upper quadrant of the abdomen and gallbladder region was performed with standard technique. FINDINGS: This examination is mildly limited by bowel gas. LIVER: The visualized liver shows normal contour, size, and morphology with normal parenchymal echo texture. BILE DUCTS: The intrahepatic and extrahepatic bile ducts are not dilated with the common bile duct measuring 3 mm. GALLBLADDER: Multiple echogenic gallstones are present within the gallbladder lumen, measuring up to approximately 2.5 cm in maximal diameter. There is no free pericholecystic fluid or gallbladder wall thickening. PANCREAS: The pancreas is not well-visualized secondary to overlying bowel gas. KIDNEY: The right kidney measures 8.5 x 3.4 x 3.4 cm. There is normal renal contour and morphology, with normal parenchymal echotexture. There is no hydronephrosis. AORTA AND INFERIOR VENA CAVA: Visualized portions appear unremarkable. ASCITES: There is no right upper quadrant abdominal ascites. IMPRESSION: 1. Echogenic gallstones identified within the gallbladder lumen. No gallbladder wall thickening or free pericholecystic fluid to suggest acute cholecystitis. May consider nuclear medicine HIDA scan for further evaluation if clinically indicated. SL: [id number] Vital Signs Vital Sign Value Date Comments Source Temperature Oral (F) 98.3 F 02/10/2016 [facility] Respitory Rate 18 02/10/2016 [facility] Systolic (mm Hg) 116 02/10/2016 [facility] Diastolic (mm Hg) 85 02/10/2016 [facility] Heart Rate 88 02/10/2016 [facility] Systolic (mm Hg) 126 02/10/2016 [facility] Diastolic (mm Hg) 69 02/10/2016 [facility] Respitory Rate 18 02/10/2016 [facility] Heart Rate 92 02/10/2016 [facility] Temperature Oral (F) 98.7 F 02/10/2016 [facility] Respitory Rate 18 02/10/2016 [facility] Systolic (mm Hg) 119 02/10/2016 [facility] Diastolic (mm Hg) 78 02/10/2016 [facility] Heart Rate 82 02/10/2016 [facility] Temperature Oral (F) 98.2 F 02/10/2016 [facility] BMI Calculated 33.38 02/06/2016 [facility] Height 152.4 cm 02/06/2016 [facility] [facility] 77.528 02/06/2016 [facility] Weight 80.455 02/06/2016 [facility] BMI Calculated 34.64 02/06/2016 [facility] Height 152.4 cm 02/06/2016 [facility] Respitory Rate 16 08/10/2015 [facility] Systolic (mm Hg) 110 08/10/2015 [facility] Diastolic (mm Hg) 63 08/10/2015 [facility] Heart Rate 67 08/10/2015 [facility] Temperature Oral (F) 96.9 F 08/10/2015 [facility] Temperature Oral (F) 97.3 F 08/10/2015 [facility] Respitory Rate 18 08/10/2015 [facility] Heart Rate 72 08/10/2015 [facility] Systolic (mm Hg) 116 08/10/2015 [facility] Diastolic (mm Hg) 70 08/10/2015 [facility] Systolic (mm Hg) 111 08/10/2015 [facility] Diastolic (mm Hg) 82 08/10/2015 [facility] Temperature Oral (F) 97.5 F 08/10/2015 [facility] Heart Rate 114 08/10/2015 [facility] Respitory Rate 20 08/10/2015 [facility] Height 152.4 cm 08/10/2015 [facility] Weight 79.545 08/10/2015 [facility] BMI Calculated 34.25 08/10/2015 [facility] Weight 79.545 09/01/2014 [facility] BMI Calculated 33.13 09/01/2014 [facility] Temperature Oral (F) 98.5 F 09/01/2014 [facility] Heart Rate 104 09/01/2014 [facility] Respitory Rate 20 09/01/2014 [facility] Height 154.94 cm 09/01/2014 [facility] Systolic (mm Hg) 126 09/01/2014 [facility] Diastolic (mm Hg) 79 09/01/2014 [facility] Height 152.4 cm 04/01/2013 [facility] Weight 85.455 04/01/2013 [facility] Temperature Oral (F) 97.0 F 04/01/2013 [facility] Heart Rate 98 04/01/2013 [facility] Respitory Rate 16 04/01/2013 [facility] Systolic (mm Hg) 128 04/01/2013 [facility] Diastolic (mm Hg) 83 04/01/2013 [facility] Encounters Location Location Encounter Encounter Reason Attending ADM DC Status Source Details Type Number For Provider Date Date Visit Not Sent Emergency [id number] LOWER REGINA 04/01 04/01 Active BACK WEATHER /2013 [facility] PA[facility]/ INJURY [facility] [id number] Lazaro 09/21 09/21 Mikey Emergency Raya /2013 [facility] [place] [id number] Robert Chao 09/01 09/01 [facility] Emergency /2014 [facility] [place] [id number] Luke 08/09 08/09 Mikey Emergency Liz /2015 [facility] Inpatient [id number] Chelita 02/05 02/09 Mikey Stanley /2015 [facility] Procedures Procedure Code Date Perfomer Comments Source
--- OUTSIDE RECORDS SUMMARY | 2018-07-05 11:09 | XMS REPORT | CCD ---
:1970 Author Organization [facility] Care Team Providers Name Role Phone Talon Barry Consulting Provider Allergies, Adverse Reactions, Alerts Substance Reaction Status iodinated radiocontrast dyes Active Iodine Mild Active Problem List Condition Effective Dates Status Abscess Resolved Diabetes mellitus Resolved Has seen soaker meat - diabetes Resolved Hyperlipidemia Resolved Hypertension Resolved Medications Medication Instructions Start Date End Date Status [place] 5/325 oral tablet 2 tab, Route: PO, Drug 04/01/2013 04/01/2013 Completed Form: TAB, Dosing Weight 85.455, kg, ONCE, Start date: 04/01/13 15:42:00, Stop date: 04/01/13 15:42:00(Same as: [place] 325/5) Do not exceed 4gm/day of acetaminophen. Motrin 800 mg, 2 tab, Route: PO, 04/01/2013 04/01/2013 Completed Drug form: TAB, ONCE, Dosing Weight 85.455, kg, Priority: STAT, Start date: 04/01/13 15:42:00, Stop date: 04/01/13 15:42:00(Same as: Motrin)"Do Not Crush" Give with food. Motrin 800 mg oral tablet 800 mg=1 tab, PO, Q8H, Pain, Take with food, # 30 tab, 0 Refill(s) 04/01/2013 Ordered Take with food acetaminophen-hydrocodone 1-2 tab, PO, Q4-6H, Pain, # 04/01/2013 04/06/2013 Ordered 325 mg-5 mg oral tablet 15 tab, 0 Refill(s) Vital Signs Most recent to oldest [Reference Range]: 1 Height 152.4 cm (04/01/2013 15:10:00) Temperature Oral [96.4-99.1 DegF] 97.0 DegF (04/01/2013 15:10:00) Systolic Blood Pressure [90-140 mmHg] 128 mmHg (04/01/2013 15:10:00) Diastolic Blood Pressure [60-90 mmHg] 83 mmHg (04/01/2013 15:10:00) Respiratory Rate [14-20 BRMIN] 16 BRMIN (04/01/2013 15:10:00) Peripheral Pulse Rate [60-100 bpm] 98 bpm (04/01/2013 15:10:00) Weight 85.455 kg (04/01/2013 15:10:00)
--- OUTSIDE RECORDS SUMMARY | 2018-07-05 11:09 | XMS REPORT | Summary of Care ---
:1970 Author Encounter [facility] Encntr_placidochristie(RENÉ) [id number] Date(s): 09/20/13 - 09/21/[address] 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
--- OUTSIDE RECORDS SUMMARY | 2018-07-05 11:10 | XMS REPORT | Summary of Care ---
:1970 Author Organization [facility] Address [address] [place], [place] [address]- Encounter [facility] Kelton(RENÉ) [id number] Date(s): 08/10/15 - 08/10/15 [facility] [address] [place] [address]- Discharge Diagnosis: Cholelithiasis Discharge Diagnosis: Abdominal pain Discharge Disposition: Home Attending Physician: Luke Hill MD Vital Signs Most recent to oldest 1 2 3 [Reference Range]: Height 152.4 cm (08/10/15 3:22 PM) Temperature Oral [96.4-99.1 96.9 DegF 97.3 DegF 97.5 DegF DegF] (08/10/15 5:56 PM) (08/10/15 4:33 PM) (08/10/15 3:22 PM) Blood Pressure [90-140/60-90 110/63 mmHg 116/70 mmHg 111/82 mmHg mmHg] (08/10/15 5:56 PM) (08/10/15 4:33 PM) (08/10/15 3:22 PM) Respiratory Rate [14-20 BRMIN] 16 BRMIN 18 BRMIN 20 BRMIN (08/10/15 5:56 PM) (08/10/15 4:33 PM) (08/10/15 3:22 PM) Peripheral Pulse Rate [60-100 67 bpm 72 bpm 114 bpm bpm] (08/10/15 5:56 PM) (08/10/15 4:33 PM) *HI* (08/10/15 3:22 PM) Weight 79.545 kg (08/10/15 3:22 PM) Body Mass Index 34.25 m2 (08/10/15 3:22 PM) Problem List Condition Effective Dates Status Health Status Informant Abscess(Confirmed) Resolved Diabetes mellitus(Confirmed) Resolved 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 - 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 diabetes(Confirmed) Hyperlipidemia(Confirmed) Resolved Hypertension(Confirmed) Resolved Allergies, Adverse Reactions, Alerts Substance Reaction Severity Status iodinated radiocontrast dyes Active Iodine Mild Active Medications Bentyl 10 mg oral capsule 10 mg=1 cap, PO, QID-Before Meals, # 28 cap, 0 Refill(s) Start Date: 08/10/15 Stop Date: 08/17/15 Status: Orderedmorphine Sulfate 4 mg, Route: IVP, ONCE, Dosing Weight 79.545, kg, Priority: STAT, Start date: 15:48:00 CDT,Stop date: 08/10/15 15:48:00 CDT Start Date: 08/10/15 Stop Date: 08/10/15 Status: Completedondansetron 4 mg, Route: IVP, ONCE, Dosing Weight 79.545, kg, Priority: STAT, Start date: 15:48:00 CDT,Stop date: 08/10/15 15:48:00 CDT Start Date: 08/10/15 Stop Date: 08/10/15 Status: CompletedSaline Flush 0.9% 10 mL, Route: IVP, Drug Form: INJ, Dosing Weight 79.545, kg, Q12H, PRN Line Flush, Start date: 08/10/15 15:48:00 CDT, Duration: 30 day, Stop date: 09/09/15 15:47:00 CDT Notes: (Same as: BD Posiflush) Start Date: 08/10/15 Stop Date: 08/10/15 Status: DiscontinuedSodium Chloride 0.9% (Bolus) IV 1,000 mL, 2,000 ml/hr, Infuse Over: 30 minutes, Route: IV, ONCE, Priority: STAT , Dosing Weight 79.545 kg, Start date: 08/10/15 15:48:00 CDT, Duration: 1 doses or times, Stop date: 08/10/15 15:48:00 CDT Start Date: 08/10/15 Stop Date: 08/10/15 Status: Completedtramadol 50 mg oral tablet 50 mg=1 tab, PO, BID, X 5 day, # 10 tab, 0 Refill(s) Start Date: 08/10/15 Stop Date: 08/15/15 Status: OrderedZofran ODT 4 mg oral tablet, disintegrating 4 mg=1 tab, PO, TID, Dissolve tab under tongue, X 3 day, # 9 tab, 0 Refill(s) Start Date: 08/10/15 Stop Date: 08/13/15 Status: Ordered Results ELECTROLYTES Most recent to oldest [Reference Range]: 1 Sodium Lvl [135-145 mEq/L] 139 mEq/L (08/10/15 4:20 PM) Potassium Lvl [3.5-5.1 mEq/L] 4.1 mEq/L (08/10/15 4:20 PM) Chloride Lvl [95-109 mEq/L] 108 mEq/L (08/10/15 4:20 PM) CO2 [24-32 mEq/L] 23 mEq/L *LOW* (08/10/15 4:20 PM) AGAP [10.0-20.0 mEq/L] 12.1 mEq/L (08/10/15 4:20 PM) CHEM PANEL Most recent to oldest [Reference Range]: 1 Creatinine Lvl [0.50-1.40 mg/dL] 1.56 mg/dL *HI* (08/10/15 4:20 PM) eGFR 54 mL/min/1.73m2 1 *NA* (08/10/15 4:20 PM) BUN [7-22 mg/dL] 18 mg/dL (08/10/15 4:20 PM) B/C Ratio [6-25] 12 (08/10/15 4:20 PM) Glucose Lvl [70-99 mg/dL] 187 mg/dL *HI* (08/10/15 4:20 PM) Total Protein [6.4-8.4 g/dL] 7.4 g/dL (08/10/15 4:20 PM) Albumin Lvl [3.5-5.0 g/dL] 3.4 g/dL *LOW* (08/10/15 4:20 PM) Globulin [2.0-4.0 g/dL] 4.0 g/dL (08/10/15 4:20 PM) A/G Ratio [0.7-1.6] 0.8 (08/10/15 4:20 PM) Calcium Lvl [8.5-10.5 mg/dL] 8.8 mg/dL (08/10/15 4:20 PM) ALT [0-65 unit/L] 44 unit/L (08/10/15 4:20 PM) AST [0-37 unit/L] 19 unit/L (08/10/15 4:20 PM) Alk Phos [39-136 unit/L] 133 unit/L (08/10/15 4:20 PM) Bili Total [0.2-1.3 mg/dL] 0.5 mg/dL (08/10/15 4:20 PM) Lipase Lvl [73-393 unit/L] 220 unit/L (08/10/15 4:20 PM) 1Result Comment: The eGFR is calculated using the CKD-EPI formula. In most young , healthy individualsthe eGFR will be >90 mL/min/1.73m2. The eGFR declines with age. An eGFR of 60-89 may be normal in some populations, particularly the elderly, for whom the CKD-EPI formula has not been extensively validated. Use of the eGFR is not recommended in the following populations: Individuals with unstable creatinine concentrations, including patients and those with serious co-morbid conditions. Patients with extremes in muscle mass or diet. The data above are obtained from the National Kidney Disease Education Program ( NKDEP) which additionally recommends that when the eGFR is used in patients with extremes of body mass index for purposesof drug dosing, the eGFR should be multiplied by the estimated BMI.HEMATOLOGY Most recent to oldest [Reference Range]: 1 WBC [3.7-10.4 K/CMM] 10.1 K/CMM (08/10/15 4:20 PM) RBC [4.70-6.10 M/CMM] 5.49 M/CMM (08/10/15 4:20 PM) Hgb [14.0-18.0 g/dL] 16.3 g/dL (08/10/15 4:20 PM) Hct [42.0-54.0 %] 49.6 % (08/10/15 4:20 PM) MCV [80.0-94.0 fL] 90.3 fL (08/10/15 4:20 PM) MCH [27.0-31.0 pg] 29.7 pg (08/10/15 4:20 PM) MCHC [32.0-36.0 g/dL] 32.9 g/dL (08/10/15 4:20 PM) RDW [11.5-14.5 %] 13.9 % (08/10/15 4:20 PM) Platelet [133-450 K/CMM] 286 K/CMM (08/10/15 4:20 PM) MPV [7.4-10.4 fL] 6.9 fL *LOW* (08/10/15 4:20 PM) Segs [45.0-75.0 %] 76.7 % *HI* (08/10/15 4:20 PM) Lymphocytes [20.0-40.0 %] 13.4 % *LOW* (08/10/15 4:20 PM) Monocytes [2.0-12.0 %] 7.2 % (08/10/15 4:20 PM) Eosinophils [0.0-4.0 %] 2.5 % (08/10/15 4:20 PM) Basophils [0.0-1.0 %] 0.2 % (08/10/15 4:20 PM) Segs-Bands # [1.5-8.1 K/CMM] 7.8 K/CMM (08/10/15 4:20 PM) Lymphocytes # [1.0-5.5 K/CMM] 1.4 K/CMM (08/10/15 4:20 PM) Monocytes # [0.0-0.8 K/CMM] 0.7 K/CMM (08/10/15 4:20 PM) Eosinophils # [0.0-0.5 K/CMM] 0.3 K/CMM (08/10/15 4:20 PM) Immunizations No data available for this section Procedures No data available for this section Social History Social History Type Response Smoking Status Current every day smoker; Type: Cigarettes; Tobacco use per day : 40; Lives with someone who smokes; Cigarette Smoking Last 365 Days Yes; Reg Smoking Cessation Counseling No Assessment and Plan No data available for this section
--- OUTSIDE RECORDS SUMMARY | 2018-07-05 11:10 | XMS REPORT | Summary of Care ---
:1970 Author Organization [facility] Address [address] [place], [place] [address]- Encounter HQ Harsha_familia(FIN) [id number] Date(s): 02/06/16 - 02/10/16 [facility] [address] [place] [address]- [phone] Discharge Diagnosis: CAP (community acquired pneumonia) Discharge Disposition: Home or Self Care Attending Physician: Chelita Stanley MD Admitting Physician: Chelita Stanley MD Vital Signs Most recent to oldest 1 2 3 [Reference Range]: Height 152.4 cm 152.4 cm (02/06/16 3:11 PM) (02/06/16 4:47 AM) Temperature Oral 98.3 DegF 98.7 DegF 98.2 DegF [96.4-99.1 DegF] (02/10/16 12:00 PM) (02/10/16 7:00 AM) (02/10/16 12:22 AM) Blood Pressure 116/85 mmHg 126/69 mmHg 119/78 mmHg [90-140/60-90 mmHg] (02/10/16 12:00 PM) (02/10/16 7:00 AM) (02/10/16 12:22 AM) Respiratory Rate [14-20 18 BRMIN 18 BRMIN 18 BRMIN BRMIN] (02/10/16 12:00 PM) (02/10/16 7:00 AM) (02/10/16 12:22 AM) Peripheral Pulse Rate 88 bpm 92 bpm 82 bpm [60-100 bpm] (02/10/16 12:00 PM) (02/10/16 7:00 AM) (02/10/16 12:22 AM) Weight 77.528 kg 80.455 kg (02/06/16 3:11 PM) (02/06/16 4:47 AM) Body Mass Index 33.38 m2 34.64 m2 (02/06/16 3:11 PM) (02/06/16 4:47 AM) Problem List Condition Effective Dates Status Health Status Informant Abdominal hernia(Confirmed) Resolved Abscess(Confirmed) Resolved Diabetes mellitus(Confirmed) Resolved Has seen director content marketing - Resolved diabetes(Confirmed) Hyperlipidemia(Confirmed) Resolved Hypertension(Confirmed) Resolved Allergies, Adverse Reactions, Alerts Substance Reaction Severity Status iodinated radiocontrast dyes Active Iodine Mild Active Medications acetaminophen 650 mg, 2 tab, Route: PO, Drug form: TAB, Q4H, Dosing Weight 80.455, kg, PRN Pain 1-3/Temp > 100.4 F, Start date: 02/06/16 13:17:00 TRANSFER CAR OPERATOR DRIER, Duration: 30 day, Stop date: 03/07/16 13:16:00 TRANSFER CAR OPERATOR DRIER Notes: Do not exceed 4 gm/day. (Same as: Tylenol) Start Date: 02/06/16 Stop Date: 02/10/16 Status: Discontinuedacetaminophen-hydrocodone 325 mg-5 mg oral tablet 1 tab, Route: PO, Drug Form: TAB, Dosing Weight 80.455, kg, Q4H, PRN Pain Score 4-6, Start date: 02/06/16 13:17:00 TRANSFER CAR OPERATOR DRIER, Duration: 30 day, Stop date: 03/07/16 13 :16:00 TRANSFER CAR OPERATOR DRIER Notes: (Same as: [place] 325/5) Do not exceed 4gm/day of acetaminophen. Start Date: 02/06/16 Stop Date: 02/09/16 Status: Discontinuedacetaminophen-hydrocodone 325 mg-5 mg oral tablet 2 tab, Route: PO, Drug Form: TAB, Dosing Weight 80.455, kg, Q4H, PRN Pain Score 4-6, Start date: 02/09/16 18:56:00 TRANSFER CAR OPERATOR DRIER, Duration: 30 day, Stop date: 03/10/16 18 :55:00 TRANSFER CAR OPERATOR DRIER Notes: (Same as: [place] 325/5) Do not exceed 4gm/day of acetaminophen. Start Date: 02/09/16 Stop Date: 02/10/16 Status: Discontinuedalbuterol 90 mcg/inh inhalation aerosol 2 puff, INHALATION, QID, PRN for wheezing / coughing, # 25 gm, 0 Refill(s) Start Date: 02/06/16 Status: Orderedalbuterol 90 mcg/inh inhalation aerosol 2 puff, INHALATION, Q6H, PRN for shortness of breath or wheezing, # 9 gm, 0 Refill(s) Start Date: 02/10/16 Status: OrderedANES acetaminophen 1,000 mg, 2 tab, Route: PO, Drug form: TAB, ONCE, Dosing Weight 77.528, kg, PRN Pain Score 1-3, Start date: 02/08/16 7:00:00 TRANSFER CAR OPERATOR DRIER, Duration: 1 doses or times, Stop date: Limited # of times Notes: Max acetaminophen 4000 mg/day (4 gm/day). (Same as: Tylenol Extra Strength) Start Date: 02/08/16 Stop Date: 02/10/16 Status: DiscontinuedANES albuterol 0.083% inhalation solution 2.49 mg, 0.5 mL, Route: NEB, Drug form: SOLN, Q20Min, Dosing Weight 77.528, kg, PRN Wheezing, Priority: STAT, Start date: 02/08/16 7:00:00 TRANSFER CAR OPERATOR DRIER, Stop date: 02/07 20:00:00 TRANSFER CAR OPERATOR DRIER Notes: SEE RT DOCUMENTATION MEDICATION WASTE Product Size: 2.5 mgProduct Wasted: ___ mg Start Date: 02/08/16 Stop Date: 02/08/16 Status: CompletedANES dexamethasone 4 mg, 1 mL, Route: IVP, Drug form: INJ, ONCE, Dosing Weight 77.528, kg, PRN Nausea & Vomiting, Start date: 02/08/16 7:00:00 TRANSFER CAR OPERATOR DRIER Notes: Concentration: 4mg/ml Start Date: 02/08/16 Stop Date: 02/10/16 Status: DiscontinuedANES diphenhydrAMINE 12.5 mg, 0.25 mL, Route: IVP, Drug form: INJ, Q6H, Dosing Weight 77.528, kg, PRN Itching, Start date: 02/08/16 7:00:00 TRANSFER CAR OPERATOR DRIER, Stop date: 02/08/16 20:00:00 TRANSFER CAR OPERATOR DRIER Notes: (Same as: Benadryl) Start Date: 02/08/16 Stop Date: 02/08/16 Status: CompletedANES flumazenil 0.2 mg, 2 mL, Route: IVP, Drug form: INJ, PRN, Dosing Weight 77.528, kg, PRN Benzodiazepine Reversal, Initial dose, Start date: 02/08/16 7:00:00 TRANSFER CAR OPERATOR DRIER, Stop date: 02/08/16 20:00:00 TRANSFER CAR OPERATOR DRIER Notes: (Same as: Romazicon) Start Date: 02/08/16 Stop Date: 02/08/16 Status: CompletedANES glycopyrrolate 0.2 mg, 1 mL, Route: IVP, Drug form: INJ, Q5Min, Dosing Weight 77.528, kg, PRN Bradycardia, Start date: 02/08/16 7:00:00 TRANSFER CAR OPERATOR DRIER, Duration: 3 doses or times, Stop date: 02/08/16 20:00:00 TRANSFER CAR OPERATOR DRIER Notes: (Same as: Robinul) Start Date: 02/08/16 Stop Date: 02/08/16 Status: CompletedANES hydrALAZINE 10 mg, 0.5 mL, Route: IVP, Drug form: INJ, Q20Min, Dosing Weight 77.528, kg, PRN Elevated BP, Start date: 02/08/16 7:00:00 TRANSFER CAR OPERATOR DRIER, Duration: 2 doses or times, Stop date: 02/08/16 20:00:00 TRANSFER CAR OPERATOR DRIER Notes: (Same as: Apresoline)Push over 5 minutes Start Date: 02/08/16 Stop Date: 02/08/16 Status: CompletedANES labetalol 10 mg, 2 mL, Route: IVP, Drug form: INJ, Q5Min, Dosing Weight 77.528, kg, PRN Elevated BP, Start date: 02/08/16 7:00:00 TRANSFER CAR OPERATOR DRIER, Duration: 5 doses or times, Stop date: 02/08/16 20:00:00 TRANSFER CAR OPERATOR DRIER Notes: (Same as: Normodyne, Trandate)Push over 2 minutes Give bolus over 2-3 minutes. Start Date: 02/08/16 Stop Date: 02/08/16 Status: CompletedANES meperidine 12.5 mg, 0.5 mL, Route: IVP, Drug form: INJ, Q30Min, Dosing Weight 77.528, kg, PRN Other -See Comment, For shivering, Start date: 02/08/16 7:00:00 TRANSFER CAR OPERATOR DRIER, Duration: 2 doses or times, Stop date: 02/08/16 15:00:00 TRANSFER CAR OPERATOR DRIER Notes: (Same as: Demerol) "Use Precaution in Elderly, Seizure disorders, and Renal impairment" Start Date: 02/08/16 Stop Date: 02/08/16 Status: CompletedANES metoprolol 1 mg, 1 mL, Route: IVP, Drug form: INJ, Q5Min, Dosing Weight 77.528, kg, PRN Other -See Comment, Start date: 02/08/16 7:00:00 TRANSFER CAR OPERATOR DRIER, Duration: 5 doses or times , Stop date: 02/08/16 20:00:00 TRANSFER CAR OPERATOR DRIER Notes: (Same as: Lopressor)Push over 2 minutes Start Date: 02/08/16 Stop Date: 02/08/16 Status: CompletedANES midazolam 1 mg, 1 mL, Route: IVP, Drug form: INJ, Q5Min, Dosing Weight 77.528, kg, PRN Anxiety, Start date: 02/08/16 7:00:00 TRANSFER CAR OPERATOR DRIER, Duration: 2 doses or times, Stop date : 02/08/16 20:00:00 TRANSFER CAR OPERATOR DRIER Notes: (Same as: Versed) MEDICATION WASTE Product Size: 2 mgProduct Wasted: ___ mg Start Date: 02/08/16 Stop Date: 02/08/16 Status: CompletedANES morphine Sulfate 2 mg, 1 mL, Route: IVP, Drug form: INJ, Q5Min, Dosing Weight 77.528, kg, PRN Pain Score 4-6, Start date: 02/08/16 7:00:00 TRANSFER CAR OPERATOR DRIER, Duration: 5 doses or times, Stop date: 02/08/16 20:00:00 TRANSFER CAR OPERATOR DRIER Notes: (Same as:MORPhine Sulfate) Start Date: 02/08/16 Stop Date: 02/08/16 Status: CompletedANES morphine Sulfate 4 mg, 1 mL, Route: IVP, Drug form: INJ, Q5Min, Dosing Weight 77.528, kg, PRN Pain Score 7-10, Start date: 02/08/16 7:00:00 TRANSFER CAR OPERATOR DRIER, Duration: 3 doses or times, Stop date: 02/08/16 20:00:00 TRANSFER CAR OPERATOR DRIER Notes: (Same as:MORPhine Sulfate) Start Date: 02/08/16 Stop Date: 02/08/16 Status: CompletedANES naloxone 0.4 mg, 1 mL, Route: IVP, Drug form: INJ, Q2MIN, Dosing Weight 77.528, kg, PRN Narcotic Reversal, Start date: 02/08/16 7:00:00 TRANSFER CAR OPERATOR DRIER, Duration: 8 doses or times , Stop date: 02/08/16 20:00:00 TRANSFER CAR OPERATOR DRIER Notes: Same as Narcan Start Date: 02/08/16 Stop Date: 02/08/16 Status: CompletedANES ondansetron 4 mg, 2 mL, Route: IVP, Drug form: INJ, ONCE, Dosing Weight 77.528, kg, PRN Nausea & Vomiting, Start date: 02/08/16 7:00:00 TRANSFER CAR OPERATOR DRIER Notes: (Same as: Cyn) MEDICATION WASTE Product Size: 4 mgProduct Wasted: ___ mg Start Date: 02/08/16 Stop Date: 02/10/16 Status: DeletedANES oxyCODONE 5 mg, 1 tab, Route: PO, Drug form: TAB, Q4H, Dosing Weight 77.528, kg, PRN Pain Score 4-6, Start date: 02/08/16 7:00:00 TRANSFER CAR OPERATOR DRIER, Stop date: 02/08/16 20:00:00 TRANSFER CAR OPERATOR DRIER Notes: (Same as: Roxicodone) Start Date: 02/08/16 Stop Date: 02/08/16 Status: CompletedANES promethazine 6.25 mg, 50 mL, Route: IVPB, Drug form: SOLN, ONCE, Dosing Weight 77.528, kg, PRN Nausea & Vomiting, Start date: 02/08/16 7:00:00 TRANSFER CAR OPERATOR DRIER Start Date: 02/08/16 Stop Date: 02/10/16 Status: DiscontinuedAugmentin 875 mg oral tablet 875 mg=1 tab, PO, Q12H, # 20 tab, 0 Refill(s) Start Date: 02/10/16 Stop Date: 02/20/16 Status: Orderedazithromycin + sodium chloride 0.9% INJ 250 mL 500 mg, Route: IVPB, [id number], Dosing Weight 80.455, kg, Start date: 02/06/16 14: 00:00 TRANSFER CAR OPERATOR DRIER, Duration:30 day, Stop date: 03/06/16 14:00:00 TRANSFER CAR OPERATOR DRIER Notes: (Same As: Zithromax IV) Start Date: 02/06/16 Stop Date: 02/07/16 Status: Discontinuedazithromycin 500 mg oral tablet 500 mg, 2 tab, Route: PO, Drug form: TAB, Daily, Dosing Weight 77.528, kg, Start date: 02/07/16 16:00:00 TRANSFER CAR OPERATOR DRIER, Duration: 30 day, Stop date: 03/07/16 16:00: 00 TRANSFER CAR OPERATOR DRIER Notes: Take 1 hour before or 2 hours after meals.(Same As: Zithromax) Start Date: 02/07/16 Stop Date: 02/10/16 Status: DiscontinuedcefTRIAXone + sodium chloride 0.9% INJ 100 mL 2 gm, Route: IVPB, [id number], Dosing Weight 80.455, kg, Start date: 02/06/16 14:00 :00 TRANSFER CAR OPERATOR DRIER, Duration: 30 day, Stop date: 03/06/16 14:00:00 TRANSFER CAR OPERATOR DRIER Notes: (Same As: Rocephin).Use with 100 mL NS and infuse over 30 min MEDICATION WASTE Product Size: 2000 mgProduct Wasted: ___ mg Start Date: 02/06/16 Stop Date: 02/10/16 Status: DiscontinuedCheratussin AC oral syrup 10 ml, PO, Q4H, PRN for cough, X 5 day, # 300 mL, 0 Refill(s) Start Date: 02/06/16 Stop Date: 02/11/16 Status: CompletedCipro 500 mg oral tablet 500 mg=1 tab, PO, Q12H, X 10 day, # 20 tab, 0 Refill(s) Start Date: 02/10/16 Stop Date: 02/20/16 Status: OrderedDextrose 50% Syringe 25 gm, 50 mL, Route: IVP, Drug Form: INJ, Dosing Weight 80.455, kg, PRN, PRN Blood Glucose Results, Start date: 02/06/16 14:51:00 TRANSFER CAR OPERATOR DRIER, Duration: 30 day, Stop date: 03/07/16 14:50:00 TRANSFER CAR OPERATOR DRIER Start Date: 02/06/16 Stop Date: 02/10/16 Status: DiscontinuedDextrose 50% Syringe 12.5 gm, 25 mL, Route: IVP, Drug Form: INJ, Dosing Weight 80.455, kg, PRN, PRN Blood Glucose Results, Start date: 02/06/16 14:51:00 TRANSFER CAR OPERATOR DRIER, Duration: 30 day, Stop date: 03/07/16 14:50:00 TRANSFER CAR OPERATOR DRIER Start Date: 02/06/16 Stop Date: 02/10/16 Status: DiscontinueddiphenhydrAMINE 50 mg, 1 mL, Route: IVP, Drug form: INJ, ONCE, Dosing Weight 80.455, kg, Start date: 02/06/16 4:52:00 TRANSFER CAR OPERATOR DRIER, Stop date: 02/06/16 4:52:00 TRANSFER CAR OPERATOR DRIER Notes: (Same as: Benadryl) Start Date: 02/06/16 Stop Date: 02/06/16 Status: Completeddocusate 100 mg, 1 cap, Route: PO, Drug form: CAP, BID, Dosing Weight 80.455, kg, PRN Constipation, Start date: 02/06/16 13:17:00 TRANSFER CAR OPERATOR DRIER, Duration: 30 day, Stop date: 13:16:00 TRANSFER CAR OPERATOR DRIER Notes: (Same as: Colace) (Do Not Crush) Start Date: 02/06/16 Stop Date: 02/10/16 Status: Discontinueddoxycycline monohydrate 100 mg oral tablet 100 mg=1 tab, PO, Q12H, X 10 day, # 20 tab, 0 Refill(s) Start Date: 02/10/16 Stop Date: 02/10/16 Status: DiscontinuedDuoNeb inhalation solution 9 mL, Route: INHALATION, Drug Form: SOLN, Dosing Weight 79.545, kg, ONCE, Start date: 02/06/16 4:46:00 TRANSFER CAR OPERATOR DRIER, Stop date: 02/06/16 4:46:00 TRANSFER CAR OPERATOR DRIER Notes: (Same as: Duoneb) Start Date: 02/06/16 Stop Date: 02/06/16 Status: Completedfamotidine 20 mg, 2 mL, Route: IVP, Drug form: INJ, ONCE, Dosing Weight 80.455, kg, Start date: 02/06/16 4:52:00 TRANSFER CAR OPERATOR DRIER, Stop date: 02/06/16 4:52:00 TRANSFER CAR OPERATOR DRIER Notes: (Same as: Pepcid)Can be dilute in 5-10cc NS IVP: Slow IV push over at least 2 minutes. Start Date: 02/06/16 Stop Date: 02/06/16 Status: CompletedfentaNYL 50 microgram, 1 mL, Route: IVP, Drug form: INJ, ONCE, Dosing Weight 80.455, kg, Priority: STAT, Start date: 02/06/16 11:47:00 TRANSFER CAR OPERATOR DRIER, Stop date: 02/06/16 11:47:00 TRANSFER CAR OPERATOR DRIER Notes: (Same as: Sublimaze) Preservative free. Start Date: 02/06/16 Stop Date: 02/06/16 Status: Completedglucagon 1 mg, Route: IM, Drug form: PDR/INJ, PRN, Dosing Weight 80.455, kg, PRN Blood Glucose Results, Startdate: 02/06/16 14:51:00 TRANSFER CAR OPERATOR DRIER, Duration: 30 day, Stop date: 03/07/16 14:50:00 TRANSFER CAR OPERATOR DRIER Start Date: 02/06/16 Stop Date: 02/10/16 Status: DiscontinuedhydrALAZINE 10 mg, 0.5 mL, Route: IVP, Drug form: INJ, Q4H, Dosing Weight 80.455, kg, PRN Hypertension, sbp>160 or dbp>110, Start date: 02/06/16 15:03:00 TRANSFER CAR OPERATOR DRIER, Duration: 30 day, Stop date: 03/07/16 15:02:00 TRANSFER CAR OPERATOR DRIER Notes: (Same as: Apresoline)Push over 5 minutes Start Date: 02/06/16 Stop Date: 02/10/16 Status: Discontinuedinsulin aspart 8 unit, 0.08 mL, Route: SUB-Q, Drug form: SOLN, TID-Before Meals, Dosing Weight 77.528, kg, Start date: 02/09/16 7:30:00 TRANSFER CAR OPERATOR DRIER, Duration: 30 day, Stop date: 03/09 16:30:00 TRANSFER CAR OPERATOR DRIER Notes: Roll in palms of hands gently; Do not shake vigorously. (Same as: NovoLOG)"single patient use only"WASTE: F/P - Black; E - Municipal Trash Bin Stable for 28 days at room temperature.Expires in days from Date Start Date: 02/09/16 Stop Date: 02/10/16 Status: Discontinuedinsulin aspart 3 unit, 0.03 mL, Route: SUB-Q, Drug form: SOLN, Bedtime, Dosing Weight 80.455, kg, PRN Blood GlucoseResults, Start date: 02/06/16 14:51:00 TRANSFER CAR OPERATOR DRIER, Duration: 30 day, Stop date: 03/07/16 14:50:00 TRANSFER CAR OPERATOR DRIER Notes: Roll in palms of hands gently; Do not shake vigorously. (Same as: OutsmartLOG)"single patient use only"WASTE: F/P - Black; E - Municipal Trash Bin Stable for 28 days at room temperature.Expires in days from Date Start Date: 02/06/16 Stop Date: 02/10/16 Status: Discontinuedinsulin aspart 4 unit, 0.04 mL, Route: SUB-Q, Drug form: SOLN, Bedtime, Dosing Weight 80.455, kg, PRN Blood GlucoseResults, Start date: 02/06/16 14:51:00 TRANSFER CAR OPERATOR DRIER, Duration: 30 day, Stop date: 03/07/16 14:50:00 TRANSFER CAR OPERATOR DRIER Notes: Roll in palms of hands gently; Do not shake vigorously. (Same as: [place])"single patient use only"WASTE: F/P - Black; E - Municipal Trash Bin Stable for 28 days at room temperature.Expires in days from Date Start Date: 02/06/16 Stop Date: 02/10/16 Status: Discontinuedinsulin aspart 1 unit, 0.01 mL, Route: SUB-Q, Drug form: SOLN, Bedtime, Dosing Weight 80.455, kg, PRN Blood GlucoseResults, Start date: 02/06/16 14:51:00 TRANSFER CAR OPERATOR DRIER, Duration: 30 day, Stop date: 03/07/16 14:50:00 TRANSFER CAR OPERATOR DRIER Notes: Roll in palms of hands gently; Do not shake vigorously. (Same as: OutsmartLOG)"single patient use only"WASTE: F/P - Black; E - Municipal Trash Bin Stable for 28 days at room temperature.Expires in days from Date Start Date: 02/06/16 Stop Date: 02/10/16 Status: Discontinuedinsulin aspart 2 unit, 0.02 mL, Route: SUB-Q, Drug form: SOLN, Bedtime, Dosing Weight 80.455, kg, PRN Blood GlucoseResults, Start date: 02/06/16 14:51:00 TRANSFER CAR OPERATOR DRIER, Duration: 30 day, Stop date: 03/07/16 14:50:00 TRANSFER CAR OPERATOR DRIER Notes: Roll in palms of hands gently; Do not shake vigorously. (Same as: NovoLOG)"single patient use only"WASTE: F/P - Black; E - Municipal Trash Bin Stable for 28 days at room temperature.Expires in days from Date Start Date: 02/06/16 Stop Date: 02/10/16 Status: Discontinuedinsulin aspart 10 unit, 0.1 mL, Route: SUB-Q, Drug form: SOLN, TID-Before Meals, Dosing Weight 80.455, kg, PRN Blood Glucose Results, Start date: 02/06/16 14:51:00 TRANSFER CAR OPERATOR DRIER, Duration: 30 day, Stop date: 03/07/16 14:50:00 TRANSFER CAR OPERATOR DRIER Notes: Roll in palms of hands gently; Do not shake vigorously. (Same as: NovoLOG)"single patient use only"WASTE: F/P - Black; E - Municipal Trash Bin Stable for 28 days at room temperature.Expires in days from Date Start Date: 02/06/16 Stop Date: 02/10/16 Status: Discontinuedinsulin aspart 4 unit, 0.04 mL, Route: SUB-Q, Drug form: SOLN, TID-Before Meals, Dosing Weight 80.455, kg, PRN Blood Glucose Results, Start date: 02/06/16 14:51:00 TRANSFER CAR OPERATOR DRIER, Duration: 30 day, Stop date: 03/07/16 14:50:00 TRANSFER CAR OPERATOR DRIER Notes: Roll in palms of hands gently; Do not shake vigorously. (Same as: NovoLOG)"single patient use only"WASTE: F/P - Black; E - Municipal Trash Bin Stable for 28 days at room temperature.Expires in days from Date Start Date: 02/06/16 Stop Date: 02/10/16 Status: Discontinuedinsulin aspart 6 unit, 0.06 mL, Route: SUB-Q, Drug form: SOLN, TID-Before Meals, Dosing Weight 80.455, kg, PRN Blood Glucose Results, Start date: 02/06/16 14:51:00 TRANSFER CAR OPERATOR DRIER, Duration: 30 day, Stop date: 03/07/16 14:50:00 TRANSFER CAR OPERATOR DRIER Notes: Roll in palms of hands gently; Do not shake vigorously. (Same as: NovoLOG)"single patient use only"WASTE: F/P - Black; E - Municipal Trash Bin Stable for 28 days at room temperature.Expires in days from Date Start Date: 02/06/16 Stop Date: 02/10/16 Status: Discontinuedinsulin aspart 2 unit, 0.02 mL, Route: SUB-Q, Drug form: SOLN, TID-Before Meals, Dosing Weight 80.455, kg, PRN Blood Glucose Results, Start date: 02/06/16 14:51:00 TRANSFER CAR OPERATOR DRIER, Duration: 30 day, Stop date: 03/07/16 14:50:00 TRANSFER CAR OPERATOR DRIER Notes: Roll in palms of hands gently; Do not shake vigorously. (Same as: NovoLOG)"single patient use only"WASTE: F/P - Black; E - Municipal Trash Bin Stable for 28 days at room temperature.Expires in days from Date Start Date: 02/06/16 Stop Date: 02/10/16 Status: Discontinuedinsulin aspart 8 unit, 0.08 mL, Route: SUB-Q, Drug form: SOLN, TID-Before Meals, Dosing Weight 80.455, kg, PRN Blood Glucose Results, Start date: 02/06/16 14:51:00 TRANSFER CAR OPERATOR DRIER, Duration: 30 day, Stop date: 03/07/16 14:50:00 TRANSFER CAR OPERATOR DRIER Notes: Roll in palms of hands gently; Do not shake vigorously. (Same as: NovoLOG)"single patient use only"WASTE: F/P - Black; E - Municipal Trash Bin Stable for 28 days at room temperature.Expires in days from Date Start Date: 02/06/16 Stop Date: 02/10/16 Status: DiscontinuedLevaquin 750 mg, 150 mL, Route: IVPB, Drug form: SOLN, ONCE, Dosing Weight 80.455, kg, Start date: 02/06/16 5:55:00 TRANSFER CAR OPERATOR DRIER, Stop date: 02/06/16 5:55:00 TRANSFER CAR OPERATOR DRIER Notes: (Same as:Levaquin) Start Date: 02/06/16 Stop Date: 02/06/16 Status: CompletedLevaquin 750 mg oral tablet 750 mg=1 tab, PO, Q24H, X 10 day, # 10 tab, 0 Refill(s) Start Date: 02/06/16 Stop Date: 02/16/16 Status: OrderedLevemir FlexPen 20 unit, 0.2 mL, Route: SUB-Q, Drug form: INJ, Bedtime, Dosing Weight 77.528, kg , Start date: 02/09/16 21:00:00 TRANSFER CAR OPERATOR DRIER, Duration: 30 day, Stop date: 03/09/16 21:00 :00 TRANSFER CAR OPERATOR DRIER Notes: Same as LevemirDo not hold insulin without contacting prescriberWASTE: F/ P - Black; E - Municipal Trash Bin "single patient use only" Start Date: 02/09/16 Stop Date: 02/10/16 Status: DiscontinuedLevemir FlexPen 10 unit, 0.1 mL, Route: SUB-Q, Drug form: INJ, Bedtime, Dosing Weight 77.528, kg , Start date: 02/06/16 21:00:00 TRANSFER CAR OPERATOR DRIER, Stop date: 03/06/16 21:00:00 TRANSFER CAR OPERATOR DRIER Notes: Same as LevemirDo not hold insulin without contacting prescriberWASTE: F/ P - Black; E - Municipal Trash Bin "single patient use only" Start Date: 02/06/16 Stop Date: 02/08/16 Status: Discontinuedlidocaine 4% inhalation solution 5 mL, Route: NEB, Drug Form: SOLN, Dosing Weight 77.528, kg, ONCE, Start date: 02/08/16 7:00:00 TRANSFER CAR OPERATOR DRIER,Stop date: 02/08/16 7:00:00 TRANSFER CAR OPERATOR DRIER Start Date: 02/08/16 Stop Date: 02/08/16 Status: CompletedmethylPREDNISolone SODium SUCCinate 125 mg, 2 mL, Route: IVP, Drug form: INJ, ONCE, Dosing Weight 80.455, kg, Start date: 02/06/16 4:52:00 TRANSFER CAR OPERATOR DRIER, Stop date: 02/06/16 4:52:00 TRANSFER CAR OPERATOR DRIER Notes: (Same as:Solu-MEDROL, A-Methapred) Start Date: 02/06/16 Stop Date: 02/06/16 Status: Completedmetoprolol tartrate 25 mg, 1 tab, Route: PO, Drug form: TAB, Q12H, Dosing Weight 80.455, kg, Start date: 02/06/16 21:00:00 TRANSFER CAR OPERATOR DRIER, Duration: 30 day, Stop date: 03/07/16 9:00:00 TRANSFER CAR OPERATOR DRIER Notes: (Same as: Lopressor) Start Date: 02/06/16 Stop Date: 02/10/16 Status: Discontinuedmorphine Sulfate 2 mg, 1 mL, Route: IVP, Drug form: INJ, Q4H, Dosing Weight 80.455, kg, PRN Pain Score 7-10, Start date: 02/06/16 13:17:00 TRANSFER CAR OPERATOR DRIER, Duration: 30 day, Stop date: 13:16:00 TRANSFER CAR OPERATOR DRIER Notes: (Same as:MORPhine Sulfate) Start Date: 02/06/16 Stop Date: 02/09/16 Status: Discontinuedmorphine Sulfate 4 mg, 1 mL, Route: IVP, Drug form: INJ, Q4H, Dosing Weight 80.455, kg, PRN Pain Score 7-10, Priority: NOW, Start date: 02/09/16 14:15:00 TRANSFER CAR OPERATOR DRIER, Duration: 30 day, Stop date: 03/10/16 14:14:00 TRANSFER CAR OPERATOR DRIER Notes: (Same as:MORPhine Sulfate) Start Date: 02/09/16 Stop Date: 02/10/16 Status: DiscontinuedNorco 10/325 oral tablet 1 tab, PO, Q6H, PRN for pain, # 30 tab, 0 Refill(s), given to patient Start Date: 02/10/16 Stop Date: 02/17/16 Status: OrderedNS (Bolus) IV 1,000 mL, 1,000 ml/hr, Infuse Over: 1 hr, Route: IV, 1,000, Drug form: INJ, ONCE , Priority: STAT, Dosing Weight 80.455 kg, Start date: 02/06/16 5:34:00 TRANSFER CAR OPERATOR DRIER, Duration: 1 doses or times, Stop date: 02/06/16 5:34:00 TRANSFER CAR OPERATOR DRIER Start Date: 02/06/16 Stop Date: 02/06/16 Status: CompletedOmnipaque 240mg/ml ORAL Solution 50 mL, Route: PO, Drug Form: SOLN, Dosing Weight 77.528, kg, ONCE, STAT, Start date: 02/09/16 15:14:00 TRANSFER CAR OPERATOR DRIER, Stop date: 02/09/16 15:14:00 TRANSFER CAR OPERATOR DRIER Start Date: 02/09/16 Stop Date: 02/09/16 Status: Discontinuedondansetron 4 mg, 2 mL, Route: IVP, Drug form: INJ, Q6H, Dosing Weight 80.455, kg, PRN Nausea & Vomiting, Start date: 02/06/16 13:17:00 TRAN[employer]ER [employer], Duration: 30 day, Stop date: 03/07/16 13:16:00 TRANSFER [employer]RI[employer] Notes: (Same as: Zofran) MEDICATION WASTE Product Size: 4 mgProduct Wasted: ___ mg Start Date: 02/06/16 Stop Date: 02/10/16 Status: DiscontinuedPhenergan 12.5 mg, 50 mL, Route: IVPB, Drug form: SOLN, Q4H, Dosing Weight 77.528, kg, PRN Other -See Comment,Start date: 02/08/16 8:00:00 TRANSFER [employer], Duration: 30 day, Stop date: 03/09/16 7:59:00 TRANSFER [employer]RI[employer] Start Date: 02/08/16 Stop Date: 02/10/16 Status: DiscontinuedpredniSONE 60 mg, 3 tab, Route: PO, Drug form: TAB, ONCE, Dosing Weight 79.545, kg, Priority: STAT, Start date:02/06/16 4:46:00 TRANSFER [employer], Stop date: 02/06/16 4:46:00 TRANSFER [employer]RI[employer] Notes: Take with food. Start Date: 02/06/16 Stop Date: 02/06/16 Status: DiscontinuedProtonix 40 mg, 1 tab, Route: PO, Drug form: ECTAB, Before Dinner, Start date: 02/10/16 16:30:00 TRANSFER [employer]RI[employer], Duration: 30 day, Stop date: 03/10/16 16:30:00 TRANSFER [employer]RIER Notes: Tablet should not be chewed or crushed.(Same as: Protonix) Start Date: 02/10/16 Stop Date: 02/10/16 Status: CanceledProtonix 40 mg, Route: IVP, Drug form: INJ, Before Dinner, Dosing Weight 80.455, kg, Start date: 02/06/16 16:30:00 TRANSFER CAR OPERATOR DRIER, Stop date: 03/06/16 16:30:00 TRANSFER CAR OPERATOR DRIER Notes: For IV push reconstitute with 10 ml 0.9% sodium chloride and push over 2 minutes. (Same as: Protonix) Start Date: 02/06/16 Stop Date: 02/10/16 Status: DiscontinuedRobitussin-AC oral syrup 10 ml, Route: PO, Drug Form: LIQ, Dosing Weight 80.455, kg, Q4H, PRN Cough, Start date: 02/06/16 15:01:00 TRANSFER CAR OPERATOR DRIER, Duration: 30 day, Stop date: 03/07/16 15:00: 00 TRANSFER CAR OPERATOR DRIER Notes: (Same As: Robitussin AC) Start Date: 02/06/16 Stop Date: 02/07/16 Status: DiscontinuedRobitussin-AC oral syrup 10 ml, Route: PO, Drug Form: LIQ, Dosing Weight 80.455, kg, Q4H, NOW, Start date : 02/07/16 9:26:00 TRANSFER CAR OPERATOR DRIER, Duration: 30 day, Stop date: 03/08/16 8:00:00 TRANSFER CAR OPERATOR DRIER Notes: (Same As: Robitussin AC) Start Date: 02/07/16 Stop Date: 02/10/16 Status: DiscontinuedSaline Flush 0.9% 10 ml, Route: IVP, Drug Form: INJ, Dosing Weight 80.455, kg, PRN, PRN Line Flush , Start date: 02/06/16 13:17:00 TRANSFER CAR OPERATOR DRIER, Duration: 30 day, Stop date: 03/07/16 13:16 :00 TRANSFER CAR OPERATOR DRIER Notes: (Same as: BD Posiflush) Start Date: 02/06/16 Stop Date: 02/10/16 Status: DiscontinuedSaline Flush 0.9% 10 mL, Route: IVP, Drug Form: INJ, Dosing Weight 79.545, kg, PRN, PRN Line Flush , Start date: 02/06/16 4:45:00 TRANSFER CAR OPERATOR DRIER, Duration: 30 day, Stop date: 03/07/16 4:44: 00 TRANSFER CAR OPERATOR DRIER Notes: (Same as: BD Posiflush) Start Date: 02/06/16 Stop Date: 02/06/16 Status: Deletedsodium chloride 0.9% 1000 ml INJ 1,000 mL 1,000 mL, Rate: 100 ml/hr, Infuse over: 10 hr, Route: IV, Dosing Weight 80.455 kg, Total Volume: 1,000, Start date: 02/06/16 13:17:00 TRANSFER CAR OPERATOR DRIER, Duration: 30 day, Stop date: 03/07/16 13:16:00 TRANSFER CAR OPERATOR DRIER Start Date: 02/06/16 Stop Date: 02/10/16 Status: Discontinuedsodium chloride 0.9% 1000 ml INJ 1,000 mL 1,000 mL, Rate: 40 ml/hr, Infuse over: 25 hr, Route: IV, Dosing Weight 77.528 kg , Total Volume: 1,000, Start date: 02/08/16 6:52:00 TRANSFER CAR OPERATOR DRIER, Duration: 1 doses or times, Stop date: 02/09/16 7:51:00 TRANSFER CAR OPERATOR DRIER Start Date: 02/08/16 Stop Date: 02/09/16 Status: CompletedTessalon 200 mg oral capsule 200 mg=1 cap, PO, TID, X 7 day, # 21 cap, 0 Refill(s) Start Date: 02/06/16 Stop Date: 02/13/16 Status: OrderedTessalon Perles 200 mg, 2 cap, Route: PO, Drug form: CAP, TID, Dosing Weight 80.455, kg, Start date: 02/06/16 22:00:00 TRANSFER CAR OPERATOR DRIER, Duration: 30 day, Stop date: 03/07/16 14:00:00 TRANSFER CAR OPERATOR DRIER Notes: (Same As: Tessalon Shayan)"Do Not Crush" Start Date: 02/06/16 Stop Date: 02/10/16 Status: Discontinuedtramadol 50 mg oral tablet 50 mg, 1 tab, Route: PO, Drug form: TAB, Q4H, Dosing Weight 77.528, kg, PRN Pain Score 1-3, Start date: 02/09/16 18:56:00 TRANSFER CAR OPERATOR DRIER, Duration: 30 day, Stop date: 03/10/16 18:55:00 TRANSFER CAR OPERATOR DRIER Notes: Not to exceed 400mg/day. (Same As: Ultram) Start Date: 02/09/16 Stop Date: 02/10/16 Status: Discontinuedtramadol 50 mg oral tablet 50 mg, PO, Q6H, PRN Pain, X 7 day, # 30 tab, 0 Refill(s) Start Date: 02/10/16 Stop Date: 02/17/16 Status: OrderedTussionex [employer] oral suspension, extended release 10 mL, Route: PO, Drug Form: SUSPER, Dosing Weight 79.545, kg, ONCE, Start date : 02/06/16 4:46:00 TRANSFER CAR OPERATOR DRIER, Stop date: 02/06/16 4:46:00 TRANSFER CAR OPERATOR DRIER Notes: (chlorpheniramine-hydrocodone 8-10mg/5ml LIQ) Non-formulary drug.(Same As: Tussionex [employer]) Start Date: 02/06/16 Stop Date: 02/06/16 Status: DiscontinuedTylenol with Codeine #3 oral tablet 2 tab, Route: PO, Drug Form: TAB, Dosing Weight 80.455, kg, ONCE, Start date: 4:53:00 TRANSFER CAR OPERATOR DRIER, Stop date: 02/06/16 4:53:00 TRANSFER CAR OPERATOR DRIER Notes: Do not exceed 4gm/day of acetaminophen. (Same as: Tylenol with Codeine # 3) Start Date: 02/06/16 Stop Date: 02/06/16 Status: Completed Results ELECTROLYTES Most recent to oldest 1 2 3 [Reference Range]: Sodium Lvl [135-145 mEq/L] 138 mEq/L 139 mEq/L 135 mEq/L (02/10/16 5:06 AM) (02/09/16 10:49 AM) (02/08/16 4:27 AM) Potassium Lvl [3.5-5.1 3.8 mEq/L 4.0 mEq/L 4.4 mEq/L mEq/L] (02/10/16 5:06 AM) (02/09/16 10:49 AM) (02/08/16 4:27 AM) Chloride Lvl [95-109 mEq/L] 104 mEq/L 103 mEq/L 103 mEq/L (02/10/16 5:06 AM) (02/09/16 10:49 AM) (02/08/16 4:27 AM) CO2 [24-32 mEq/L] 27 mEq/L 29 mEq/L 28 mEq/L (02/10/16 5:06 AM) (02/09/16 10:49 AM) (02/08/16 4:27 AM) AGAP [10.0-20.0 mEq/L] 10.8 mEq/L 11.0 mEq/L 8.4 mEq/L (02/10/16 5:06 AM) (02/09/16 10:49 AM) *LOW* (02/08/16 4:27 AM) CHEM PANEL Most recent to oldest 1 2 3 [Reference Range]: Creatinine Lvl [0.50-1.40 1.51 mg/dL 1.54 mg/dL 1.52 mg/dL mg/dL] *HI* *HI* *HI* (02/10/16 5:06 AM) (02/09/16 10:49 AM) (02/08/16 4:27 AM) eGFR 56 mL/min/1.73m2 1 54 mL/min/1.73m2 2 55 mL/min/1.73m2 3 *NA* *NA* *NA* (02/10/16 5:06 AM) (02/09/16 10:49 AM) (02/08/16 4:27 AM) BUN [7-22 mg/dL] 22 mg/dL 24 mg/dL 21 mg/dL (02/10/16 5:06 AM) *HI* (02/08/16 4:27 AM) (02/09/16 10:49 AM) Glucose Lvl [70-99 mg/dL] 130 mg/dL 229 mg/dL 114 mg/dL *HI* *HI* *HI* (02/10/16 5:06 AM) (02/09/16 10:49 AM) (02/08/16 4:27 AM) Calcium Lvl [8.5-10.5 8.7 mg/dL 8.9 mg/dL 9.0 mg/dL mg/dL] (02/10/16 5:06 AM) (02/09/16 10:49 AM) (02/08/16 4:27 AM) Phosphorus [2.5-4.5 mg/dL] 3.3 mg/dL 2.4 mg/dL (02/10/16 5:06 AM) *LOW* (02/07/16 5:02 AM) Magnesium Lvl [1.8-2.4 1.8 mg/dL 2.0 mg/dL 2.0 mg/dL mg/dL] (02/10/16 5:06 AM) (02/08/16 4:27 AM) (02/07/16 5:02 AM) Lactic Acid Lvl [0.5-2.2 1.4 mMol/L mMol/L] (02/09/16 10:49 AM) 1Result Comment: The eGFR is calculated using [...] eGFR should be multiplied by the estimated BMI.2Result Comment: The eGFR is calculated using the CKD-EPI formula. In most young, healthy individualsthe eGFR will be >90 mL/ min/1.73m2. The [...] eGFR should be multiplied by the estimated BMI.3Result Comment: The eGFR is calculated using the CKD-EPI formula. In most young, healthy individualsthe eGFR will be >90 mL/ min/1.73m2. The [...] eGFR should be multiplied by the estimated BMI.CARDIAC ENZYMES Most recent to oldest [Reference Range]: 1 2 3 Total CK [12-191 unit/L] 86 unit/L (02/06/16 5:00 AM) CK MB [0.5-3.6 ng/mL] 1.2 ng/mL (02/06/16 5:00 AM) CK MB Index [0.0-2.5] 1.4 (02/06/16 5:00 AM) Troponin-I [0.00-0.40 ng/mL] <0.02 ng/mL (02/06/16 5:00 AM) proBNP [0-125 pg/mL] 40 pg/mL (02/06/16 5:10 AM) SPECIAL CHEMISTRY Most recent to oldest [Reference Range]: 1 2 3 Hgb A1C [<=5.6 %] 6.9 % *HI* (02/06/16 4:31 PM) TOXICOLOGY Most recent to oldest [Reference Range]: 1 2 3 Etoh (%) <.003 % *NA* (02/06/16 5:10 AM) Ethanol Lvl <3 mg/dL *NA* (02/06/16 5:10 AM) HEMATOLOGY Most recent to oldest 1 2 3 [Reference Range]: WBC [3.7-10.4 K/CMM] 8.9 K/CMM 10.8 K/CMM 9.4 K/CMM (02/10/16 5:06 AM) *HI* (02/08/16 4:27 AM) (02/09/16 10:49 AM) RBC [4.70-6.10 M/CMM] 4.85 M/CMM 4.52 M/CMM 4.87 M/CMM (02/10/16 5:06 AM) *LOW* (02/08/16 4:27 AM) (02/09/16 10:49 AM) Hgb [14.0-18.0 g/dL] 13.8 g/dL 12.8 g/dL 13.8 g/dL *LOW* *LOW* *LOW* (02/10/16 5:06 AM) (02/09/16 10:49 AM) (02/08/16 4:27 AM) Hct [42.0-54.0 %] 42.2 % 38.8 % 41.9 % (02/10/16 5:06 AM) *LOW* *LOW* (02/09/16 10:49 AM) (02/08/16 4:27 AM) MCV [80.0-94.0 fL] 87.1 fL 85.8 fL 86.1 fL (02/10/16 5:06 AM) (02/09/16 10:49 AM) (02/08/16 4:27 AM) MCH [27.0-31.0 pg] 28.5 pg 28.2 pg 28.4 pg (02/10/16 5:06 AM) (02/09/16 10:49 AM) (02/08/16 4:27 AM) MCHC [32.0-36.0 g/dL] 32.7 g/dL 32.9 g/dL 33.0 g/dL (02/10/16 5:06 AM) (02/09/16 10:49 AM) (02/08/16 4:27 AM) RDW [11.5-14.5 %] 13.1 % 13.3 % 13.3 % (02/10/16 5:06 AM) (02/09/16 10:49 AM) (02/08/16 4:27 AM) Platelet [133-450 K/CMM] 251 K/CMM 350 K/CMM 363 K/CMM (02/10/16 5:06 AM) (02/09/16 10:49 AM) (02/08/16 4:27 AM) MPV [7.4-10.4 fL] 7.1 fL 6.5 fL 6.3 fL *LOW* *LOW* *LOW* (02/10/16 5:06 AM) (02/09/16 10:49 AM) (02/08/16 4:27 AM) Segs [45.0-75.0 %] 50.3 % 62.5 % 56.3 % (02/10/16 5:06 AM) (02/09/16 10:49 AM) (02/08/16 4:27 AM) Lymphocytes [20.0-40.0 %] 41.2 % 28.6 % 35.8 % *HI* (02/09/16 10:49 AM) (02/08/16 4:27 AM) (02/10/16 5:06 AM) Monocytes [2.0-12.0 %] 5.9 % 7.7 % 6.0 % (02/10/16 5:06 AM) (02/09/16 10:49 AM) (02/08/16 4:27 AM) Eosinophils [0.0-4.0 %] 2.1 % 0.6 % 1.6 % (02/10/16 5:06 AM) (02/09/16 10:49 AM) (02/08/16 4:27 AM) Basophils [0.0-1.0 %] 0.5 % 0.6 % 0.3 % (02/10/16 5:06 AM) (02/09/16 10:49 AM) (02/08/16 4:27 AM) Segs-Bands # [1.5-8.1 4.5 K/CMM 6.8 K/CMM 5.3 K/CMM K/CMM] (02/10/16 5:06 AM) (02/09/16 10:49 AM) (02/08/16 4:27 AM) Lymphocytes # [1.0-5.5 3.7 K/CMM 3.1 K/CMM 3.4 K/CMM K/CMM] (02/10/16 5:06 AM) (02/09/16 10:49 AM) (02/08/16 4:27 AM) Monocytes # [0.0-0.8 K/CMM] 0.5 K/CMM 0.8 K/CMM 0.6 K/CMM (02/10/16 5:06 AM) (02/09/16 10:49 AM) (02/08/16 4:27 AM) Eosinophils # [0.0-0.5 0.2 K/CMM 0.1 K/CMM 0.2 K/CMM K/CMM] (02/10/16 5:06 AM) (02/09/16 10:49 AM) (02/08/16 4:27 AM) Basophils # [0.0-0.2 K/CMM] 0.1 K/CMM (02/09/16 10:49 AM) PT [12.0-14.7 seconds] 13.0 seconds (02/06/16 5:00 AM) INR [0.85-1.17] 0.96 (02/06/16 5:00 AM) PTT [22.9-35.8 seconds] 26.0 seconds (02/06/16 5:00 AM) Immunizations Not Given Vaccine Date Status Refusal Reason influenza virus vaccine, inactivated 02/10/16 Not Given Patient Refuses Procedures No data available for this section Social History Social History Type Response Smoking Status Former smoker; Type: Cigarettes; Exposure to Tobacco Smoke None ; Cigarette Smoking Last 365 Days Unable to obtain; Reg Smoking Cessation Counseling No Assessment and Plan Extracted from: Title: Progress Note * Dr. Cooper Pulmonary Author: Home Cooper MD Date: Impression and Plan large lung mass in a smoker..with postobstructive pna/hemoptysis s/p bronchoscopy/bx...await path report gross exam suspicious for squamous.. continue antibiotics 02-09 bronch +NSCLC--adneocarcinoma will need molecular profile including EGFR, etc to see if candidate for TKI complete antibiotics f/u with oncology service for staging/treatment Extracted from: Title: Hospitalist H&P Author: Manuel Díaz MD Date: 02/06/16 Chief complain: Shortness of breath, hemoptysis. HPI: 45 years old male with history of heavy smoking, he used to smoke 2-3 packs per day for 20 years, he stopped 6 months ago. h/o diet controlled diabetes, hypertension, hyperlipidemia. The patient presented with a 3 week history of cough, initially dry. Associated with shortness of breath. Cough has being getting worse and for the last few days he is having bloody sputum, one tea spoo n of blood at times. He is being vomiting every day for the last one week as well, 2-3 times per day. No hematemesis. He also states is being having watery stools, 4-5 times per day for the last one wee k. c/o right groin pain as well, worse with cough. c/o some chills, no fever. In the ER a CT scan shows a large mass in the right infrahilar area, possible concomitant pneumonia as well. Past medical history: Hypertension Diabetes mellitus Hyperlipidemia Past surgical history: No prior surgeries. Family history: Unknown, patient was adopted. Social history: Used to smoke 2-3 ppd for 20 years, stopped 6 months ago. No alcohol or illicit drug abuse. Allergies: iodinated radiocontrast dyes, Iodine Mild *Medications: - No home medications. *Review of systems: Except for what was mention in the H&P, rest of all review of systems are negative. *PHYSICAL EXAM: Vitals Tmp(F) Pulse BP RR SpO2 FIO2 02/05 12:33 97.5 114 155/95 18 98 --- 02/05 10:52 ---- 89 153/80 -- --- --- 02/05 10:03 ---- 90 195/105 18 81 --- 02/05 08:30 ---- 104 126/77 18 96 --- 02/05 08:00 ---- 111 141/93 18 96 --- 24 Hr Tmax: 97.5F (36.39c) at 02/05 12:33 Vital Signs are the last 5 in the past 48 hours. General: patient lying in bed in no distress. HEENT: MARY ALICE, EOMI. Neck: supple, no jvd. no thyromegaly. Chest: rales in right lung. Cardiovascular: rhythm, tachycardic. Abdomen: soft, non tender to palpation. Musculoskeletal: no peripheral edema. No joint swelling. SYR[employer] MACHINE [employer]ORER: awake and alert, no focal signs. Skin: no rash. [facility] BUN: 12 mg/dL (02/06/16) Hct: 39.5 % Low (02/06/16) Hgb: 12.7 g/dL Low (02/06/16) MCH: 27.6 pg (02/06/16) MCHC: 32.1 g/dL (02/06/16) MCV: 85.9 fL (02/06/16) MPV: 6.4 fL Low (02/06/16) Platelet: 424 K/CMM (02/06/16) RBC: 4.60 M/CMM Low (02/06/16) RDW: 12.3 % (02/06/16) WBC: 6.8 K/CMM (02/06/16) CK MB: 1.2 ng/mL (02/06/16) *CTA chest: 1. No CT evidence of pulmonary embolism. 2. 8.3 x 4.5 x 4.8 cm heterogeneous lobulated mass in the right infrahilar region most consistent with large central lung neoplasm with partial postobstructive atelectasis in the right middle and lower lobes and concern for endobronchial spread of tumor into right middle and lower lobes. Lobulated extension of tumor seen within right bronchus intermedius. ASSESSMENT/PLAN: 1. Post-obstructive right lung pneumonia. Will start IV abx therapy. Will f/u clinially. Sputum cultures. 2. Hemoptysis. 2nd to lung mass. 3. Large right infrahilar mass, likely malignancy. Consult oilfield plant and field operator for consideration of bronchoscopy. 4. DM2. Will get a1c. Start ISS. 5. Accelerated hypertension. Start IV hydralazine prn. Start oral metoprolol. No ACEI due to renal failure. 6. Acute on chornic renal failure. Start on IVFs, avoid nephrotoxins. 7. VTE prophylaxis. SCDs. Encourage ambulation. 8. Ex-smoker.
--- OUTSIDE RECORDS SUMMARY | 2018-07-05 11:10 | XMS REPORT | Summary of Care ---
:1970 Author Organization [facility] Address [address] [place], [place] [address]- Encounter [facility] [place](FIN) [id number] Date(s): 08/31/14 - 09/01/14 [facility] [address] [facility] [address] [place] [address]- [phone] Discharge Diagnosis: Conjunctivitis Discharge Disposition: Home Attending Physician: Robert Chao MD Vital Signs Most recent to oldest [Reference Range]: 1 Height 154.94 cm (08/31/14 11:43 PM) Most recent to oldest [Reference Range]: 1 Temperature Oral [96.4-99.1 DegF] 98.5 DegF (08/31/14 11:43 PM) Most recent to oldest [Reference Range]: 1 Blood Pressure [90-140/60-90 mmHg] 126/79 mmHg (08/31/14 11:43 PM) Most recent to oldest [Reference Range]: 1 Respiratory Rate [14-20 BRMIN] 20 BRMIN (08/31/14 11:43 PM) Most recent to oldest [Reference Range]: 1 Peripheral Pulse Rate [60-100 bpm] 104 bpm *HI* (08/31/14 11:43 PM) Most recent to oldest [Reference Range]: 1 Weight 79.545 kg (08/31/14 11:43 PM) Most recent to oldest [Reference Range]: 1 Body Mass Index 33.13 m2 (08/31/14 11:43 PM) Problem List Condition Effective Dates Status Health Status Informant Abscess(Confirmed) Resolved Diabetes mellitus(Confirmed) Resolved Has seen filler sifter helper - Resolved diabetes(Confirmed) Hyperlipidemia(Confirmed) Resolved Hypertension(Confirmed) Resolved Allergies, Adverse Reactions, Alerts Substance Reaction Severity Status iodinated radiocontrast dyes Active Iodine Mild Active Medications bacitracin-polymyxin B ophthalmic ointment 1 appl, BOTH EYES, QID, # 3 gm, 0 Refill(s) Start Date: 09/01/14 Stop Date: 09/02/14 Status: Completed Results No data available for this section Immunizations [...]
--- OUTSIDE RECORDS SUMMARY | 2018-07-05 11:11 | XMS REPORT ---
:1970 Demographics Address [address] [place] [address] Preferred Language Unknown Marital Status Unknown Shinto Affiliation Unknown Race Unknown Ethnic Group Unknown Author Organization [facility] Address [address] [place] [address] Care Team Providers Name Role Phone Unavailable Unavailable Unavailable Payers Payer Name Policy Type Policy Number Effective Date Expiration Date Problems This patient has no known problems. Allergies, Adverse Reactions, Alerts Allergy Name Allergy Status Severity Reaction(s) Onset Inactive Treating Comments Type Date Date Clinician iodine DA Active U 2018-05 00:00:0 0 ziprasidone DA Active SV 2018-05 00:00:0 0 Medications This patient has no known medications. Results Test Description Test Time Test Comments Text Results Atomic Results Result Comments UA RFLX MICR CULT IF INDICATED 2018-06-05 16:41:00 Test Item Value Reference Range Comments UA COLOR (test code=COLU) Straw Yellow UA APPEARANCE (test code=APPU) Clear Clear UA GLUCOSE DIPSTICK (test >=500 (3+) Negative code=DGLUU) UA BILIRUBIN DIPSTICK (test Negative Negative code=BILU) UA KETONE DIPSTICK (test Negative mg/dL Negative code=KETU) UA SPECIFIC GRAVITY (test 1.015 <1.030 code=SGU) UA BLOOD DIPSTICK (test 1+ Negative code=CARO) UA PH DIPSTICK (test code=MABEL) 6.0 5.0-8.0 UA PROTEIN DIPSTICK (test 30 (1+) mg/dL Negative code=PROU) UA UROBILINOGEN DIPSTICK (test Negative mg/dL Negative code=URO) UA NITRITE DIPSTICK (test Negative Negative code=MARCELA) UA LEUKOCYTE ESTERASE DIPSTICK NEGATIVE Negative (test code=LEUU) UA WBC (test code=WBCUR) 0-3 /HPF <4-5 <10 WBC/HPF=PYURIA ABSENT URINE CULTURE NOT INDICATED UA RBC (test code=RBCU) 0-3 /HPF <4-5 UA BACTERIA (test code=BACU) NONE SEEN /HPF None-Rare UA SQUAMOUS CELLS (test 0-5 (RARE) /HPF 0-5 (RARE) code=SQU) less than 18 yrs old, neutropenic, or urological surgery? NOPrimary Indication for Culture: OtherOther Indication: ED PATIENTUA RFLX MICR CULT IF [id number] -04-18 16:32:00 Test Item Value Reference Range Comments UA COLOR (test code=COLU) Straw Yellow UA APPEARANCE (test code=APPU) Clear Clear UA GLUCOSE DIPSTICK (test code=DGLUU) >=500 (3+) Negative UA BILIRUBIN DIPSTICK (test code=BILU) Negative Negative UA KETONE DIPSTICK (test code=KETU) Negative mg/dL Negative UA SPECIFIC GRAVITY (test code=SGU) 1.015 <1.030 UA BLOOD DIPSTICK (test code=CARO) 1+ Negative UA PH DIPSTICK (test code=MABEL) 6.0 5.0-8.0 UA PROTEIN DIPSTICK (test code=PROU) 30 (1+) mg/dL Negative UA UROBILINOGEN DIPSTICK (test code=URO) Negative mg/dL Negative UA NITRITE DIPSTICK (test code=MARCELA) Negative Negative UA LEUKOCYTE ESTERASE DIPSTICK (test NEGATIVE Negative code=LEUU) UA WBC (test code=WBCUR) /HPF 0-3 UA RBC (test code=RBCU) /HPF 0-3 UA BACTERIA (test code=BACU) /HPF NEGATIVE less than 18 yrs old, neutropenic, or urological surgery? NOPrimary Indication for Culture: OtherOther Indication: ED PATIENTPROCALCITONIN (PCT)2018-06-05 15: 31:00 Test Item Value Reference Range Comments PROCALCITONIN (PCT) (test < 0.05 NG/ML code=PROCAL) Procalcitonin (PCT) Normal Value: <0.05 NG/ML <0.5 NG/ML - low risk of severe sepsis and/or septic shock>2.0 NG/ML - high risk of severe sepsis and/or septic shock PCT concentrations between 0.5 and 2.0 NG/ML should beinterpreted taking into account the patient's history.It is recommended to retest PCT within 6-24 hours if anyconcentrations between 0.5-2.0 NG/ML are obtained. - CT HEAD/BRAIN W/O [id number] 15:20:00 FAX: Colleen Mckenzie MD [phone] Crane: St: REG Name: MICHELLE FISHER [facility] : 1970 Age/S: 48/M [address] Unit: [id number] Loc: [place] [address] Phys: Colleen Mckenzie MD Acct: [id number] Dis Date: Status: REG ER PHONE #: [phone] Exam Date: 06/05/2018 1510 FAX #: [phone] Reason: june, h/o brain ca EXAMS: CPT CODE: [id number] CT HEAD/BRAIN W/O CONT 57588 Location: T18 CT head, 06/05/18 COMPARISON EXAMS:None of the brain TECHNIQUE: CT examination of the brain was performed without contrast on a helical scanner. Scanning conducted from skull base to vertex in the axial plane acquiring contiguous 5mm slice thickness . The examination was performed on a [facility] helical CT scanner utilizing low-dose radiation technique. Automatic exposure control timing was utilized to minimize radiation dose. CLINICAL HISTORY: Headache. History BRAIN cancer. Emergency room presentation FINDINGS: There is postoperative changes identified in the left occipital region. Area of focal encephalomalacia is seen in this area without space-occupying process or findings of high concern for recurrent lesion. No definite findings for intracranial metastatic disease. There is presence of a benign lipoma identified in the right frontal region. No aggressive bony destruction is seen. No positive mass-effect, midline shift, extra-axial fluid collections or acute intracranial hemorrhages seen. In particular, no subarachnoid hemorrhage is identified. No intra or extra-axial masses. Bone windows unremarkable. No significant sinus disease is noted. No acute territorial infarction is seen. IMPRESSION: Postop changes in the left occipitalregion with encephalomalacia seen deep to the postoperative site. No definite findings for recurrent lesion. No space-occupying processes or intracranial hemorrhage. PAGE 1 Signed Report (CONTINUED) FAX: Colleen Mckenzie MD [phone] Crane: St: REG Name: MICHELLE FISHER [facility] : 1970 Age/S: 48/M [address] Unit: [id number] Loc: [place] [address] Phys: Colleen Mckenzie MD Acct: [id number] Dis Date: Status: REG ER PHONE #: [phone] Exam Date: 06/05/2018 1510 FAX #: [phone] Reason: june, h/o brain ca EXAMS: CPT CODE: [id number] CT HEAD/BRAIN W/O CONT 86610 < Continued> at 1520 Reported and signed by: Janeen Chacon MD CC: Colleen Mckenzie MD Technologist: CHIDI KATZscrd Dt/Tm: 06/05/2018 (1520) [email or web address] Orig Print D/T: S: 06/05/2018 (1523 PAGE 2 Signed ReportBASIC METABOLIC [id number] 15:18:00 Test Item Value Reference Range Comments SODIUM (test code=NA) 138 mmol/L 137-145 POTASSIUM (test code=K) 4.3 mmol/L 3.4-5.0 CHLORIDE (test code=CL) 108 mmol/L 98-107 CARBON DIOXIDE (test 18 mmol/L 22-30 code=CO2) GLUCOSE (test code=GLU) 347 mg/dL 74-106 BLOOD UREA NITROGEN (test 20 mg/dL 9-20 code=BUN) GLOMERULAR FILTRATION RATE 43 >60 The estimated glomerular (test code=GFR) filtration rate is computed usingpatient race, age (>18), sex, and serum creatinine. If anyof the needed data elements are missing the Laboratory cannot compute an estimation of the glomerular filtration rate. CREATININE (test code=CREAT) 1.8 mg/dL 0.7-1.3 CALCIUM (test code=CA) 9.3 mg/dL 8.4-10.2 LIVER FUNCTION [id number] 15:18:00 Test Item Value Reference Range Comments TOTAL PROTEIN (test code=PROT) 7.0 g/dL 6.3-8.2 ALBUMIN (test code=ALB) 4.0 g/dL 3.5-5.0 BILIRUBIN TOTAL (test 0.3 mg/dL 0.2-1.3 code=BILT) BILIRUBIN CONJUGATED (test 0 mg/dL 0-0.3 ~~~~~~~~~~~~~~~~~~~~~~~~~~~~~ code=BILCON) ~~~~~~~~~~~~~~~~~~~~~~~~~~~~~ ~~CONJUGATED BILIRUBIN IS THE REPLACEMENT ASSAY FOR DIRECTBILIRUBIN.~~~~~~~~~~~~~ ~~~~~~~~~~~~~~~~~~~~~~~~~~~~~ ~~~~~~~~~~~~~~~~~~ BILIRUBIN UNCONJUGATED (test 0 mg/dL 0-1.1 code=BILUNC) SGOT/AST (test code=AST) 21 U/L 15-46 SGPT/ALT (test code=ALT) 31 U/L 13-69 ALKALINE PHOSPHATASE (test 130 U/L 38-126 code=ALKP) [id number] 15:18:00 Test Item Value Reference Range Comments LIPASE (test code=LIP) 133 U/L 23-300 BASIC METABOLIC [id number] 15:16:00 Test Item Value Reference Range Comments SODIUM (test code=NA) 138 mmol/L 137-145 POTASSIUM (test code=K) 4.3 mmol/L 3.4-5.0 CHLORIDE (test code=CL) 108 mmol/L 98-107 CARBON DIOXIDE (test 18 mmol/L 22-30 code=CO2) GLUCOSE (test code=GLU) 347 mg/dL 74-106 BLOOD UREA NITROGEN (test 20 mg/dL 9-20 code=BUN) GLOMERULAR FILTRATION RATE 43 >60 The estimated glomerular (test code=GFR) filtration rate is computed usingpatient race, age (>18), sex, and serum creatinine. If anyof the needed data elements are missing the Laboratory cannot compute an estimation of the glomerular filtration rate. CREATININE (test code=CREAT) 1.8 mg/dL 0.7-1.3 CALCIUM (test code=CA) 9.3 mg/dL 8.4-10.2 LIVER FUNCTION [id number] 15:16:00 Test Item Value Reference Range Comments TOTAL PROTEIN (test code=PROT) 7.0 g/dL 6.3-8.2 ALBUMIN (test code=ALB) 4.0 g/dL 3.5-5.0 BILIRUBIN TOTAL (test 0.3 mg/dL 0.2-1.3 code=BILT) BILIRUBIN CONJUGATED (test 0 mg/dL 0-0.3 ~~~~~~~~~~~~~~~~~~~~~~~~~~~~~ code=BILCON) ~~~~~~~~~~~~~~~~~~~~~~~~~~~~~ ~~CONJUGATED BILIRUBIN IS THE REPLACEMENT ASSAY FOR DIRECTBILIRUBIN.~~~~~~~~~~~~~ ~~~~~~~~~~~~~~~~~~~~~~~~~~~~~ ~~~~~~~~~~~~~~~~~~ BILIRUBIN UNCONJUGATED (test 0 mg/dL 0-1.1 code=BILUNC) SGOT/AST (test code=AST) 21 U/L 15-46 SGPT/ALT (test code=ALT) 31 U/L 13-69 ALKALINE PHOSPHATASE (test 130 U/L 38-126 code=ALKP) [id number] 15:16:00 Test Item Value Reference Range Comments LIPASE (test code=LIP) U/L 23-300 PROTHROMBIN [id number] 15:07:00 Test Item Value Reference Range Comments PROTHROMBIN TIME PATIENT 11.2 SECONDS 9.2-12.1 (test code=PTP) INTERNATIONAL NORMAL RATIO 1.0 The INR is to be used only (test code=INR) for monitoring ORAL ANTICOAGULANTTHERAPY. Indication INR Value1. Prophylaxis/treatment of: Venous Thrombosis, Pulmonary Embolism 2.0 - 3.02. Prevention of systemic embolism from: Tissue heart valves 2.0 - 3.0 Acute myocardial infarction (to present systemic embolism)* 2.0 - 3.0 Valvular heart disease 2.0 - 3.0 Atrial fibrillation 2.0 - 3.03. Mechanical prosthetic valves (high risk) 2.5 - 3.5 * If oral anticoagulant therapy is elected to preventrecurrent myocardial infarction, an INR of 2.5-3.5 isrecommended, consistent with Food and Drug Administrationrecommendations . THROMBOPLASTIN TIME [id number] 15:07:00 Test Item Value Reference Range Comments THROMBOPLASTIN TIME PARTIAL 25.6 SECONDS 23.4-37.0 Therapeutic Range for (test code=PTT) Heparin EFFECTIVE 08/27/12 Heparin IU/mL aPTT Seconds0.3 64.30.7 88.8 CBC W/AUTO [id number] 15:02:00 Test Item Value Reference Range Comments WHITE BLOOD CELL (test code=WBC) 8.2 x10 3/uL 5.0-12.0 RED BLOOD CELL (test code=RBC) 4.90 x10 6/uL 4.70-6.10 HEMOGLOBIN (test code=HGB) 15.2 g/dL 14.0-18.0 HEMATOCRIT (test code=HCT) 45.3 % 37.0-49.0 MEAN CELL VOLUME (test code=MCV) 92 fL 80-94 MEAN CELL HGB (test code=MCH) 31.0 pg 27-31 MEAN CELL HGB CONCENTRATION (test code=MCHC) 33.6 g/dL 33-37 RED CELL DISTRIBUTION WIDTH (test code=RDW) 13.2 % 11.5-15.5 PLATELET COUNT (test code=PLT) 240 x10 3/uL 130-400 MEAN PLATELET VOLUME (test code=MPV) 8.9 fL 9.4-16.4 NEUTROPHIL % (test code=NT%) 60.1 % 43-65 IMMATURE GRANULOCYTE % (test code=IG%) 0.2 % 0.0-2.0 LYMPHOCYTE % (test code=LY%) 32.6 % 20.5-45.5 MONOCYTE % (test code=MO%) 4.5 % 5.5-11.7 EOSINOPHIL % (test code=EO%) 2.2 % 0.9-2.9 BASOPHIL % (test code=BA%) 0.4 % 0.2-1.0 NUCLEATED RBC % (test code=NRBC%) 0.0 % 0-1.0 NEUTROPHIL # (test code=NT#) 4.89 x10 3/uL 2.2-4.8 IMMATURE GRANULOCYTE # (test code=IG#) 0.02 x10 3/uL 0-0.03 LYMPHOCYTE # (test code=LY#) 2.66 x10 3/uL 1.3-2.9 MONOCYTE # (test code=MO#) 0.37 x10 3/uL 0.3-0.8 EOSINOPHIL # (test code=EO#) 0.18 x10 3/uL 0.0-0.2 BASOPHIL # (test code=BA#) 0.03 x10 3/uL 0.0-0.1 LACTIC ACID [id number] 15:01:00 Test Item Value Reference Range Comments LACTIC ACID POC (test code=LACTP) 1.17 mmol/L 0.7-2.0 TROPONIN I [id number] 15:01:00 Test Item Value Reference Range Comments TROPONIN I RAPID (test 0.01 ng/mL 0.00-0.079 ISTAT TROPONIN I code=TROPIRAP) CRITERIA0.00-0.08 ng/mL - Negative>0.08 ng/mL - Positive The use of serial sampling and testing protocol is arecommended practice.An elevated troponin level alone is often not sufficient fordiagnosis of myocardial infarction. Troponin results obtained by different assays may vary.Evaluation of the extent of myocardial damage based onincrease of troponin would be valid only if similarmethodology is used. - XR CHEST 1 [id number] 14:53:00 Crane: St: REG Name: MICHELLE FISHER [facility] : 1970 Age/S: 48/M [address] Unit#: [id number] Loc: [place] [address] Phys: Isaias Gruber Acct: [id number] Dis Date: Status: REG ER PHONE #: [phone] Exam Date: 06/05/2018 1440 FAX #: [phone] Reason: CODE SEPSIS EXAMS: CPT CODE: [id number] XR CHEST 1 V 72394 EXAM: Portable chest x-ray, one view INDICATION: CODE SEPSIS LOCATION CODE: C3 COMPARISON: None TECHNIQUE : Single Portable AP upright view of the chest DISCUSSION: Mild patchy density involving the right lung base suggest atelectasis and or infiltrative process. Heart and mediastinal contours are unremarkable. No pneumothorax or pleural vision seen. Osseous structures unremarkable. IMPRESSION: 1. Right basilar atelectasis and or early infiltrate at 1273 Reported and signed by: Rodolfo Kim M.D. CC: Technologist: KYARA KHANNA (Anais) Trnscrd Date/Time/By: 06/05/2018 (1928) : By: Lizet PAGE 1 Signed Report Crane: St: REG----- [facility] : [facility] Ahsan : Age/S: 48/M [address] Unit #: [id number] Loc: [place] [address] Phys: Isaias Gruber Acct: [id number] Dis Date: Status: REG ER PHONE #: [phone] Exam Date: 06/05/2018 1440 FAX #: [phone] Reason: CODE SEPSIS EXAMS: CPT CODE: [id number] XR CHEST 1 V [id number] <Continued> Orig Print D/T: S: 06/05/2018 (1458) PAGE 2 Signed Report
[2018-07-05 12:24] LABS: Absolute Lymphocytes (CBC) 1.8 K/uL (0.7-4.9); Absolute Monocytes 0.3 K/uL (0.1-1.3); Absolute Neutrophil 4.3 K/uL (1.8-8.0); Basophils % 0.8 % (0-1.3); Eosinophils % 2.3 % (0-4.4); Hematocrit 46.5 % (39.6-49.0); Lymphocytes % 27.9 % (15.3-44.8); MPV 7.8 fL (7.6-11.3); Monocytes % 3.8 % (3.3-12.3); RBC Red Blood Cell Count 4.89 M/uL (4.33-5.43)
[2018-07-05 12:26] LABS: Protime INR 0.9
--- NOTE | 2018-07-05 12:34 | RAD REPORT ---
EXAM DESCRIPTION: Luke Single View07/05/2018 12:11 pm CLINICAL HISTORY: sob COMPARISON: none FINDINGS: The lungs appear clear of acute infiltrate. The heart is normal size IMPRESSION: No acute abnormalities displayed
[2018-07-05 12:45] LABS: ALT/SGPT 30 U/L (12-78); AST/SGOT 13 U/L (15-37); Albumin 3.6 g/dL (3.4-5.0); Alkaline Phosphatase 178 U/L (45-117); BUN Blood Urea Nitrogen 23 mg/dL (7-18); Bicarbonate 24 mmol/L (21-32); Bilirubin Direct 0.1 mg/dL (0-0.2); Bilirubin Total 0.3 mg/dL (0.2-1.0); NT PRO-BNP 42 pg/mL (<125); Potassium 4.4 mmol/L (3.5-5.1); Protein, Total 7.3 g/dL (6.4-8.2); Sodium Level 130 mmol/L (136-145); Troponin (Emerg Dept Use Only) < 0.02 ng/mL (0.0-0.045)
[2018-07-05 12:47] LABS: Glucose Level 627 mg/dL (74-106)
[2018-07-05] MEDS ORDERED: NA CHLORIDE 0.9% 500 ML ONE (13:33)
[2018-07-05] MEDS ORDERED: ALBUTEROL 2.5 MG/3 ML NEB SOL ONE (14:09)
--- NOTE | 2018-07-05 14:24 | EKG ---
Test Date: 2018-07-05 Test Time: 12:14:04 Data Analysis Assistant: HERNANDEZ MEASUREMENT RESULTS: Intervals: Rate: 84 IN: 130 QRSD: 112 QT: 350 QTc: 413 [place]: P: 35 IN: 130 QRS: -58 T: 45 INTERPRETIVE STATEMENTS: Normal sinus rhythm Left axis Abnormal ECG No previous ECG available for comparison Electronically Signed On 07-05-18 14:23:40 CDT by Barron Hayward
[2018-07-05] MEDS ORDERED: INSULIN -REGULAR HUMAN 50 UNIT/0.5 ML ML ONE ×2 (15:06→23:37)
--- NOTE | 2018-07-05 15:33 | ER ---
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 Transition of care: patient was not received from another setting of care. Onset of symptoms was July 05, 2018. Risk Assessment: Do you want to hurt yourself or someone else? Patient reports no desire to harm self or others. Initial Sepsis Screen: Does the patient meet any 2 criteria? No. Patient's initial sepsis screen is negative. Does the patient have a suspected source of infection? No. Patient's initial sepsis screen is negative. Care prior to arrival: None. 11:08 Method Of Arrival: Ambulatory sg 11:08 Acuity: JULIANNE 3 sg Triage Assessment: 11:12 Respiratory: the patient has mild shortness of breath. rb1 Historical: - Allergies: 11:11 Adhesives; sg 11:11 Iodine; sg 11:11 Anesthetics - Amide Type; sg - PMHx: 11:11 Cancer; sg - PSHx: 11:11 Lobectomy; sg - Immunization history:: Adult Immunizations up to date. - Social history:: Smoking status: Patient/guardian denies using tobacco. - Ebola Screening: : Patient negative for fever greater than or equal to 101.5 degrees Fahrenheit, and additional compatible Ebola Virus Disease symptoms Patient denies exposure to infectious person Patient denies travel to an Ebola-affected area in the 21 days before illness onset No symptoms or risks identified at this time. Screenin:12 Abuse screen: Denies threats or abuse. Nutritional screening: No deficits noted. rb1 Tuberculosis screening: No symptoms or risk factors identified. Fall Risk None identified. Assessment: 11:12 General: Appears in no apparent distress. uncomfortable, Behavior is calm, cooperative, rb1 Denies fever. General: Has a hernia in his groin. Pain: Complains of pain in groin Pain radiates to abdomen Pain currently is 8 out of 10 on a pain scale. Neuro: Level of Consciousness is awake, alert, obeys commands, Oriented to person, place, time, situation. Cardiovascular: Rhythm is regular. Respiratory: Reports cough that is productive, white sputum Airway is patent Respiratory effort is even, unlabored, Respiratory pattern is regular, symmetrical. GI: No signs and/or symptoms were reported involving the gastrointestinal system. : No signs and/or symptoms were reported regarding the genitourinary system. Derm: Skin is dry, Skin is normal, Skin temperature is warm. 12:12 Reassessment: Patient appears in no apparent distress at this time. No changes from rb1 previously documented assessment. Pt. was asked to not eat or drink anything until we receive tests results back. Verbalized understanding. 13:10 Reassessment: Patient appears in no apparent distress at this time. Patient and/or rb1 family updated on plan of care and expected duration. Pain level reassessed. Patient is alert, oriented x 3, equal unlabored respirations, skin warm/dry/pink. 13:20 Reassessment: Received verbal order for NS 500 ml bolus x [address] Alexander. He does not rb1 want additional labs drawn at this time. 14:20 Reassessment: Patient appears in no apparent distress at this time. Patient and/or rb1 family updated on plan of care and expected duration. Pain level reassessed. Patient is alert, oriented x 3, equal unlabored respirations, skin warm/dry/pink. 15:00 Reassessment: [facility]. [facility] reports that the pt. had never had insulin filled at that pharmacy. On 06/05/18 he had Amoxicillin and Codeine filled per pharmacy staff but there is no other history listed. Dr. Alexander notified. 15:19 Reassessment: Patient appears in no apparent distress at this time. No changes from rb1 previously documented assessment. Son at bedside. 15:34 Reassessment: Pt. stated, "I need to leave, my dad just left dialysis and is walking rb1 over here. He can't walk that far, so I have to get him." Provider notified. 15:38 Reassessment: Pt. reports that someone else was able to go get his father so he can rb1 stay now. Provider notified. 16:19 Reassessment: Patient appears in no apparent distress at this time. Patient and/or rb1 family updated on plan of care and expected duration. Pain level reassessed. Patient is alert, oriented x 3, equal unlabored respirations, skin warm/dry/pink. 17:00 Reassessment: Pt. requested to go outside to smoke and I told him that we could not let rb1 him go outside with an IV and that we were a smoke free campus. Pt. stated, "I'm about to walk up out of this bitch. I need a cigarette.". 17:15 Reassessment: Provider notified that the pt. requested to go smoke. Received order for rb1 a Nicoderm Patch 14 mg x 1. 17:15 Reassessment: I attempted to pull the Nicoderm Patch, it was not greyed out on the rb1 Pyxis but no patches were available in the drawer. I called pharmacy to request Nicoderm patches to be brought to the floor. I was told that they would bring some to the floor because they needed to restock the Pyxis. 17:30 Reassessment: Took the pt. a food tray for dinner but he refused it. rb1 18:00 Reassessment: Patient appears in no apparent distress at this time. Patient and/or rb1 family updated on plan of care and expected duration. Pain level reassessed. Patient is alert, oriented x 3, equal unlabored respirations, skin warm/dry/pink. Pt. is agitated because he can not smoke. 18:12 Reassessment: Gave report to ДМИТРИЙ Costa. Information from the SBAR was given. All rb1 questions asked and answered. Vital Signs: 11:11 BP 126 / 94; Pulse 109; Resp 20; Pulse Ox 98% on R/A; Weight 117.93 kg (R); Pain 10/10; sg 12:10 BP 117 / 83; Pulse 95; Resp 19; Temp 97.7(O); Pulse Ox 98% on R/A; Pain 8/10; rb1 13:10 BP 112 / 82; Pulse 83; Resp 27; Temp 97.9(O); Pulse Ox 97% on 3 lpm NC; Pain 8/10; rb1 14:24 BP 135 / 85; Pulse 79; Resp 23; Temp 98.0(O); Pulse Ox 100% on R/A; mh5 15:16 BP 131 / 90; Pulse 83; Resp 25; Pulse Ox 97% on R/A; Pain 7/10; rb1 16:15 BP 133 / 87; Pulse 91; Resp 22; Temp 98.9(O); Pain 5/10; rb1 17:15 BP 132 / 81; Pulse 78; Resp 20; Temp 98.7(O); Pulse Ox 99% on R/A; Pain 5/10; rb1 18:01 BP 133 / 88; Pulse 94; Resp 22; Temp 98.8(O); Pulse Ox 98% on R/A; mh5 ED Course: 11:06 Patient arrived in ED. tw3 11:10 Triage completed. sg 11:10 Arm band placed on. sg 11:11 Anay Marie, RN is Primary Nurse. rb1 11:12 Patient has correct armband on for positive identification. Bed in low position. Call rb1 light in reach. Side rails up X 1. Pulse ox on. NIBP on. 11:20 David Alexander MD is Attending Physician. gs 12:11 XRAY Chest (1 view) In Process Unspecified. EDMS 12:14 Inserted saline lock: 22 gauge in right wrist, using aseptic technique. Blood collected.rb1 12:17 hospice entrance attendant on. 5 12:17 EKG done, by ED staff, reviewed by David Alexander MD. 5 12:47 Notified ED physician of a critical lab result(s). GLU 627. la1 15:31 Denia Haas MD is Hospitalizing Provider. gs 18:37 No provider procedures requiring assistance completed. Patient admitted, IV remains in rb1 place. Administered Medications: 13:29 Drug: NS 0.9% 500 ml Route: IV; Rate: bolus; Site: right wrist; rb1 14:10 Drug: Albuterol 2.5 mg Route: Inhalation; em 14:59 Drug: Insulin Regular Human 10 units {Co-Signature: em (Marito Camacho LVN).} {Note: BS rb1 447.} Route: Sub-Q; Site: left upper arm; 16:17 Follow up: Response: No adverse reaction; Blood sugar is lowered; BS 415 rb1 17:44 Not Given (Patient Refused): Tylenol 650 mg PO once hb Point of Care Testing: Blood Glucose: 14:59 Blood Glucose: 447 mg/dL; rb1 16:17 Blood Glucose: 415 mg/dL; rb1 Ranges: Intake: Output: 12:44 Urine: 1ml (Voided); Total: 1ml. rb1 Outcome: 15:32 Decision to Hospitalize by Provider. gs 18:37 Patient left the ED. rb1 18:37 Admitted to Med/surg accompanied by tech, via wheelchair, room 224, with chart, Report rb1 called to ДМИТРИЙ Costa 18:37 Condition: stable rb1 18:37 Instructed on the need for admit. Signatures: Dispatcher [employer] Casa Kate, RN RN Marito Camacho, COMPOSITE TECHNICIAN COMPOSITE TECHNICIAN em Josh Portillo RN RN laAnay Qureshi RN RN [facility] Ana Tobias 5 Jose, Telma 3 David Alexander MD MD Shira Gavlan RN Marito Camacho COMPOSITE TECHNICIAN em Corrections: (The following items were deleted from the chart) 19:38 13:20 Reassessment: Received verbal order for NS 500 ml bolus x [address] Alexander. rb1 rb1
--- NOTE | 2018-07-05 15:33 | EDPHYS ---
Physician Documentation [facility] Name: Sanjeev Mcpherson Age: 48 yrs Sex: Male : 1970 Arrival Date: 07/05/2018 Time: 11:06 Bed 14 Private MD: ED Physician David Alexander HPI: 07/05 15:56 This 48 yrs old Male presents to ER via Ambulatory with complaints of Breathing gs Difficulty. 15:56 The patient has shortness of breath at rest. Onset: The symptoms/episode began/occurred gs 2 week(s) ago. Duration: The symptoms are intermittent. The patient's shortness of breath is aggravated by coughing. Associated signs and symptoms: Pertinent positives: non-productive cough, Pertinent negatives: chest pain. Severity of symptoms: At their worst the symptoms were moderate in the emergency department the symptoms are unchanged. The patient has experienced similar episodes in the past, several times. The patient has not recently seen a physician. Historical: - Allergies: 11:11 Adhesives; sg 11:11 Iodine; sg 11:11 Anesthetics - Amide Type; sg - PMHx: 11:11 Cancer; sg - PSHx: 11:11 Lobectomy; sg - Immunization history:: Adult Immunizations up to date. - Social history:: Smoking status: Patient/guardian denies using tobacco. - Ebola Screening: : Patient negative for fever greater than or equal to 101.5 degrees Fahrenheit, and additional compatible Ebola Virus Disease symptoms Patient denies exposure to infectious person Patient denies travel to an Ebola-affected area in the 21 days before illness onset No symptoms or risks identified at this time. ROS: 15:56 All other systems are negative. gs Exam: 15:56 Head/Face: Normocephalic, atraumatic. Eyes: Pupils equal round and reactive to light, gs extra-ocular motions intact. Lids and lashes normal. Conjunctiva and sclera are non-icteric and not injected. Cornea within normal limits. Periorbital areas with no swelling, redness, or edema. ENT: Nares patent. No nasal discharge, no septal abnormalities noted. Tympanic membranes are normal and external auditory canals are clear. Oropharynx with no redness, swelling, or masses, exudates, or evidence of obstruction, uvula midline. Mucous membranes moist. Neck: Trachea midline, no thyromegaly or masses palpated, and no cervical lymphadenopathy. Supple, full range of motion without nuchal rigidity, or vertebral point tenderness. No Meningismus. Chest/axilla: Normal chest wall appearance and motion. Nontender with no deformity. No lesions are appreciated. Cardiovascular: Regular rate and rhythm with a normal S1 and S2. No gallops, murmurs, or rubs. Normal PMI, no JVD. No pulse deficits. Abdomen/GI: Soft, non-tender, with normal bowel sounds. No distension or tympany. No guarding or rebound. No evidence of tenderness throughout. Back: No spinal tenderness. No costovertebral tenderness. Full range of motion. Skin: Warm, dry with normal turgor. Normal color with no rashes, no lesions, and no evidence of cellulitis. MS/ Extremity: Pulses equal, no cyanosis. Neurovascular intact. Full, normal range of motion. Neuro: Awake and alert, GCS 15, oriented to person, place, time, and situation. Cranial nerves II-XII grossly intact. Motor strength 5/5 in all extremities. Sensory grossly intact. Cerebellar exam normal. Normal gait. 15:56 Constitutional: The patient appears alert, awake. 15:56 ECG was reviewed by the Attending Physician. 15:56 Respiratory: mild respiratory distress is noted, Respirations: tachypnea, Breath sounds: decreased breath sounds, that are mild, are located in both bases. 17:15 Abdomen/GI: Hernia: noted in the right inguinal area, incarceration, is not gs appreciated. Vital Signs: 11:11 BP 126 / 94; Pulse 109; Resp 20; Pulse Ox 98% on R/A; Weight 117.93 kg (R); Pain 10/10; sg 12:10 BP 117 / 83; Pulse 95; Resp 19; Temp 97.7(O); Pulse Ox 98% on R/A; Pain 8/10; rb1 13:10 BP 112 / 82; Pulse 83; Resp 27; Temp 97.9(O); Pulse Ox 97% on 3 lpm NC; Pain 8/10; rb1 14:24 BP 135 / 85; Pulse 79; Resp 23; Temp 98.0(O); Pulse Ox 100% on R/A; mh5 15:16 BP 131 / 90; Pulse 83; Resp 25; Pulse Ox 97% on R/A; Pain 7/10; rb1 16:15 BP 133 / 87; Pulse 91; Resp 22; Temp 98.9(O); Pain 5/10; rb1 17:15 BP 132 / 81; Pulse 78; Resp 20; Temp 98.7(O); Pulse Ox 99% on R/A; Pain 5/10; rb1 18:01 BP 133 / 88; Pulse 94; Resp 22; Temp 98.8(O); Pulse Ox 98% on R/A; mh5 MDM: 11:42 Patient medically screened. 15:56 Differential diagnosis: CHF exacerbation, Chronic Obstructive Pulmonary Disease gs Myocardial Infarction pneumonia, dka, hyperglycemia. Data reviewed: vital signs, nurses notes, lab test result(s), EKG, radiologic studies. Counseling: I had a detailed discussion with the patient and/or guardian regarding: the need for further work-up and treatment in the hospital. 07/05 11:43 Order name: Basic Metabolic Panel 07/05 11:43 Order name: CBC with Diff 07/05 11:43 Order name: LFT's 07/05 11:43 Order name: Magnesium; Complete Time: 13:42 07/05 11:43 Order name: NT PRO-BNP 07/05 11:43 Order name: PT-INR; Complete Time: 12:36 07/05 11:43 Order name: Troponin (emerg Dept Use Only); Complete Time: 13:42 07/05 11:43 Order name: XRAY Chest (1 view); Complete Time: 12:36 07/05 11:44 Order name: Basic Metabolic Panel; Complete Time: 13:42 [facility] 07/05 11:44 Order name: CBC with Automated Diff; Complete Time: 12:36 [facility] 07/05 11:44 Order name: Liver (Hepatic) Function; Complete Time: 13:42 [facility] 07/05 11:44 Order name: NT PRO-BNP; Complete Time: 13:42 [facility] 07/05 18:18 Order name: Renal Ultrasound-Complete [facility] 07/05 11:43 Order name: EKG; Complete Time: 11:44 07/05 11:43 Order name: Cardiac monitoring; Complete Time: 12:42 07/05 11:43 Order name: EKG - Nurse/Tech; Complete Time: 12:17 07/05 11:43 Order name: IV Saline Lock; Complete Time: 12:42 07/05 11:43 Order name: Labs collected and sent; Complete Time: 12:42 07/05 11:43 Order name: O2 Per Protocol; Complete Time: 12:42 07/05 11:43 Order name: O2 Sat Monitoring; Complete Time: 12:42 07/05 14:23 Order name: Fingerstick Glucose; Complete Time: 16:12 07/05 16:56 Order name: Diet Ada 1800 Aayush; Complete Time: 16:58 [facility] 07/05 17:17 Order name: CONS Physician Consult EDMS EC:56 Rate is 84 beats/min. Rhythm is regular. [place] interval is normal. QRS interval is gs prolonged. T waves are Normal. No ST changes noted. Clinical impression: NSR w/ Non-specific ST/T Changes. Interpreted by me. Administered Medications: 13:29 Drug: NS 0.9% 500 ml Route: IV; Rate: bolus; Site: right wrist; rb1 14:10 Drug: Albuterol 2.5 mg Route: Inhalation; em 14:59 Drug: Insulin Regular Human 10 units {Co-Signature: em (Marito Camacho INSPECTOR [employer]).} {Note: BS rb1 447.} Route: Sub-Q; Site: left upper arm; 16:17 Follow up: Response: No adverse reaction; Blood sugar is lowered; BS 415 rb1 17:44 Not Given (Patient Refused): Tylenol 650 mg PO once hb Point of Care Testing: Blood Glucose: 14:59 Blood Glucose: 447 mg/dL; rb1 16:17 Blood Glucose: 415 mg/dL; rb1 Ranges: Critical Glucose Levels:Adult <50 mg/dl or >400 mg/dl <40 mg/dl or >180 mg/dl Disposition: 07/05/18 15:32 Hospitalization ordered by Denia Haas for Observation. Preliminary diagnosis are Chronic obstructive pulmonary disease with (acute) exacerbation, Hyperglycemia, unspecified. - Bed requested for Telemetry/MedSurg (observation). - Status is Observation. rb1 - Condition is Stable. - Problem is new. - Symptoms are unchanged. UTI on Admission? No Signatures: Dispatcher [employer] EDKY Casa Haley RN RN Marito Camacho LVN [employer] em Anay Marie RN RN [facility] Ivette Calabrese RN RN df David Alexander MD MD Shira Galvan RN Marito Camacho [employer] Corrections: (The following items were deleted from the chart) 17:55 15:32 Hospitalization Ordered by Denia Haas MD for Observation. Preliminary df diagnosis is Chronic obstructive pulmonary disease with (acute) exacerbation; Hyperglycemia, unspecified. Bed requested for Telemetry/MedSurg (observation). Status is Observation. Condition is Stable. Problem is new. Symptoms are unchanged. UTI on Admission? No. gs 18:37 17:55 07/05/2018 15:32 Hospitalization Ordered by Denia Haas MD for Observation. rb1 Preliminary diagnosis is Chronic obstructive pulmonary disease with (acute) exacerbation; Hyperglycemia, unspecified. Bed requested for Telemetry/MedSurg (observation). Status is Observation. Condition is Stable. Problem is new. Symptoms are unchanged. UTI on Admission? No. df
[2018-07-05] MEDS ORDERED: ALBUTEROL 2.5 MG/3 ML NEB SOL NEB PRN (17:11)
[2018-07-05] MEDS ORDERED: ACETAMINOPHEN 325 MG TABLET ONE (17:29)
[2018-07-05] MEDS ORDERED: NA CHLORIDE 0.9% 1,000 ML IV SCH (18:00)
--- NOTE | 2018-07-05 18:01 | P.HP ---
Certification for Inpatient With expected LOS: >2 Midnights Practitioner: I am a practitioner with admitting privileges, knowledge of patient current condition, hospital course, and medical plan of care. 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,DVt s/p IVC filter ,hernia presented to the emergency room with nausea and vomiting associated with sob and found to have BS around 600 and pt was given insulin and IVF hydration his BS improved but continued to have nausea and abdominal pain,pt also found to have CR of 2.3 pt is very poor historian and doesnt remember his oncologist name and ddidnt have pcp for the last 2 yrs because of insurance issues and was not taking any meds Allergies Anesthetics - Amide Type Allergy (Verified 07/05/18 16:55) Itching/Hives/Rash iodine Allergy (Verified 07/05/18 16:55) Itching/Hives/Rash adhesive Adverse Reaction (Verified 07/05/18 16:55) Itching/Hives/Rash Home medications list reviewed: Yes (no home meds ) Home Medications: NK [No Home Meds] 07/05/18 - Past Medical/Surgical History Diabetic: Yes - Social History Smoking Status: Never smoker Alcohol use: No CD- Drugs: No Review of Systems General: Fever, Chills, Sweats Eyes: Pain, Vision Change ENT: Ear Pain, Ear Discharge, Nose Pain, Nose Discharge Cardiovascular: Chest Pain, Palpitations Genitourinary: Dysuria, Urgency, Hematuria Musculoskeletal: Neck Pain, Shoulder Pain, Arm Pain Integumentary: Rash Neurological: Weakness, Numbness Physical Examination - Physical Exam General: Alert, Oriented x3 HEENT: Atraumatic, Normocephalic, PERRLA Neck: Supple, JVD not distended Respiratory: Clear to auscultation bilaterally, Normal air movement Cardiovascular: No edema, Regular rate/rhythm, Normal S1 S2 Gastrointestinal: Normal bowel sounds, Soft and benign, Non-distended Musculoskeletal: No erythema, No tenderness Integumentary: No rashes Neurological: Normal speech, Normal strength at 5/5 x4 extr - Studies Laboratory Data (last 24 hrs) 07/05/18 12:14: PT 10.7, INR 0.90 07/05/18 12:14: WBC 6.6, Hgb 15.5, Hct 46.5, Plt Count 210 07/05/18 12:14: Sodium 130 L, Potassium 4.4, BUN 23 H, Creatinine 2.35 H, Glucose 627 H*, Magnesium 2.0, Total Bilirubin 0.3, AST 13 L, ALT 30, Alkaline Phosphatase 178 H Assessment and Plan - Plan assessment/plan: hyperosmolar hyperglycemia will transfer pt to ICU start on insulin drip monitor BS q1hr monitor BMP q3hr replace electrolytes NPO IVF hydration Ryder -unknown baseline cr IVF hydration avoid nephrotoxic meds monitor BUn/CR renal /bladder US nephrology consult pseudohyponatremia due to elevated BS hx of lung cancer and brain tumor-f/up as op inguinal hernia f/up with Sx as op DVt ppx with heparin - Advance Directives Does patient have a Living Will: No Does patient have a Durable POA for Healthcare: No
[2018-07-05] MEDS ORDERED: ONDANSETRON 4 MG/2 ML VIAL IV PRN (19:00)
[2018-07-05] MEDS: IPRATROPIUM BROM 0.5MG/2.5ML NEB SCH (20:20)
[2018-07-05] MEDS ORDERED: INSULIN -REGULAR HUMAN 50 UNIT/0.5 ML ML SQ SCH (21:00)
[2018-07-05] MEDS ORDERED: INSULIN -REGULAR HUMAN 100 UNIT in NA CHLORIDE 0.9% 100 ML IV SCH (22:15)
[2018-07-05] MEDS: NICOTINE 21 MG/PAT TD SCH ×2 (23:00→23:41)
[2018-07-05] MEDS: D5 0.45 NS 1,000 ML IV SCH (23:00)
[2018-07-05 23:10] LABS: Potassium 4.2 mmol/L (3.5-5.1)
[2018-07-05] MEDS: NACHLORIDE 0.45% 1,000 ML IV SCH (23:27)
[2018-07-05] MEDS ORDERED: NA CHLORIDE 0.9% 100 ML ONE (23:37)
[2018-07-05] MEDS: TRAMADOL HCL 50 MG TAB PO PRN (23:41)
[2018-07-06 01:00] LABS: Urine Appearance CLEAR; Urine Bilirubin NEGATIVE (NEG); Urine Blood TRACE (NEG); Urine Color YELLOW; Urine Glucose 3+ (NEG); Urine Protein 2+ (NEG); Urine Specific Gravity 1.025 (1.005-1.030); Urine Urobilinogen 0.2 mg/dL (0.2-1.0)
[2018-07-06] MEDS: HEPARIN 5000 UNIT/ML 1 ML VIAL SQ SCH ×3 (01:16→17:20)
[2018-07-06 01:18] LABS: Urine Microscopic Reflex ORDER UMIC
[2018-07-06 01:56] LABS: Urine Bacteria <20 /HPF (NONE SEEN); Urine Culture Reflex Order NOT NEEDED; Urine RBC <5 /HPF (NONE SEEN)
[2018-07-06] MEDS: IPRATROPIUM BROM 0.5MG/2.5ML NEB SCH ×4 (02:00→20:40)
[2018-07-06] MEDS: D5 0.45 NS 1,000 ML IV SCH (02:11)
[2018-07-06 03:06] LABS: Potassium 3.9 mmol/L (3.5-5.1)
[2018-07-06] MEDS: NACHLORIDE 0.45% 1,000 ML IV SCH (03:15)
[2018-07-06] MEDS ORDERED: D50W 25 GM/50 ML SYRINGE IV PRN (04:03)
[2018-07-06] MEDS ORDERED: GLUCAGON 1 MG/VIAL IM PRN (04:03)
[2018-07-06] MEDS: NA CHLORIDE 0.9% 1,000 ML IV SCH ×2 (04:09→12:58)
[2018-07-06 05:53] LABS: Absolute Lymphocytes (CBC) 2.9 K/uL (0.7-4.9); Absolute Monocytes 0.4 K/uL (0.1-1.3); Absolute Neutrophil 4.2 K/uL (1.8-8.0); Basophils % 0.7 % (0-1.3); Eosinophils % 2.4 % (0-4.4); Hematocrit 43.8 % (39.6-49.0); Lymphocytes % 37.3 % (15.3-44.8); MPV 8.1 fL (7.6-11.3); Monocytes % 5.6 % (3.3-12.3); RBC Red Blood Cell Count 4.72 M/uL (4.33-5.43)
[2018-07-06 06:00] LABS: Albumin 3.3 g/dL (3.4-5.0); Bilirubin Total 0.3 mg/dL (0.2-1.0); Potassium 3.8 mmol/L (3.5-5.1); Protein, Total 6.7 g/dL (6.4-8.2)
[2018-07-06] MEDS: NICOTINE 21 MG/PAT TD SCH (08:19)
[2018-07-06] MEDS: INSULIN -REGULAR HUMAN 50 UNIT/0.5 ML ML SQ SCH ×4 (08:20→21:00)
[2018-07-06] MEDS ORDERED: PNEUMOCOCCAL VACCINE 0.5 ML IMVAC ONE (10:00)
--- NOTE | 2018-07-06 12:52 | P.PN ---
Subjective Date of Service: 07/06/18 Chief Complaint: NAUSEA/VOMITING pt seen and examined denied any complains hypglycemia resolved ,insulin drip dced and pt transferred to the floor Review of Systems 10-point ROS is otherwise unremarkable Physical Examination - Vital Signs Temperature: 98.0 F Blood Pressure: 131/88 Pulse: 84 Respirations: 22 Pulse Ox (%): 98 - Physical Exam General: Alert, In no apparent distress, Oriented x3 HEENT: Atraumatic, Normocephalic, PERRLA Neck: JVD not distended Respiratory: Clear to auscultation bilaterally, Normal air movement Cardiovascular: No edema, Regular rate/rhythm, Normal S1 S2 Gastrointestinal: Normal bowel sounds, Hypoactive, Soft and benign, Non- distended - Studies Laboratory Data (last 24 hrs) 07/05/18 12:14: Sodium 130 L, Potassium 4.4, BUN 23 H, Creatinine 2.35 H, Glucose 627 H*, Magnesium 2.0, Total Bilirubin 0.3, AST 13 L, ALT 30, Alkaline Phosphatase 178 H Assessment And Plan - Plan assessment/plan: hyperosmolar hyperglycemia -resolved poorly controlled DM insulin sliding scale will start on januvia renal dose inguinal hernia Sx f/up as Op Ryder -unknown baseline cr IVF hydration avoid nephrotoxic meds monitor BUn/CR renal /bladder US nephrology consult pseudohyponatremia due to elevated BS-resolved hx of lung cancer and brain tumor-f/up as op DVt ppx with heparin Discharge Plan: Home Plan to discharge in: 24 Hours
[2018-07-06] MEDS: TRAMADOL HCL 50 MG TAB PO PRN ×2 (12:57→21:09)
[2018-07-06 13:18] LABS: Urine Appearance CLEAR; Urine Bilirubin NEGATIVE (NEG); Urine Blood TRACE (NEG); Urine Color YELLOW; Urine Glucose 3+ (NEG); Urine Protein 2+ (NEG); Urine Urobilinogen 0.2 mg/dL (0.2-1.0)
[2018-07-06 13:26] LABS: Urine Protein/Creatinine Ratio 1.3 ratio (<0.15)
[2018-07-06 13:32] LABS: Urine Microscopic Reflex ORDER UMIC
[2018-07-06 13:33] LABS: Urine Bacteria <20 /HPF (NONE SEEN); Urine Culture Reflex Order NOT NEEDED; Urine RBC <5 /HPF (NONE SEEN)
--- NOTE | 2018-07-06 14:05 | RAD REPORT ---
EXAM DESCRIPTION: CT - Head Brain Wo Cont - 07/06/2018 1:58 pm CLINICAL HISTORY: Headache COMPARISON: No comparisons TECHNIQUE: All CT scans are performed using dose optimization technique as appropriate and may inclu de automated exposure control or mA/KV adjustment according to patient size. FINDINGS: No intracranial hemorrhage, hydrocephalus or extra-axial fluid collection.An area of glios is is seen in the left occipital lobe likely postoperative in nature.No areas of brain edema or evide nce of midline shift. Mild polypoid mucosal thickening is seen in the inferior maxillary antra. The paranasal sinuses and m astoids are otherwise clear. Left occipital craniotomy changes. 25 x 8 mm subcutaneous right frontal lipoma. IMPRESSION: No acute intracranial abnormality. Postsurgical changes are present in the left occipital lobe region.
[2018-07-06] MEDS ORDERED: MORPHINE 2 MG/ML SYR IV ONE ×2 (16:00→21:52)
--- NOTE | 2018-07-06 16:35 | CON ---
Date of Consultation: 07/06/2018 Reason For Consultation: Elevated BUN and creatinine, fluid management. History Of Present Illness: This is a pleasant, unfortunate 48-year-old gentleman with significant p ast medical history of hypertension, diabetes diagnosis 3 years back, been off treatment for the last 2 years because of loss of insurance; small cell lung cancer, status post chemo and radiation, compl icated with metastatic cyst to the brain, status post brain tumor resection and radiation. According to the patient, the patient came to the hospital complaining from nausea and vomiting, found to have hyperglycemia with elevated BUN and creatinine. For that reason, we have been consulted. Over the night, the patient was started on IV fluids. Kidney function has been improved, creatinine from 2.3 to 1.8, blood sugar slightly better. The patient is feeling better. Past Medical History: Include: 1.Lung CA. 2.DVT status post IVC filter. 3.Diabetes. 4.Metastatic lung to the brain, status post radiation and chemo. Past Surgical History: Include brain tumor resection. Social History: Denies smoking. Denies drinking. Denies drugs abuse. Allergies: INCLUDE ANESTHESIA, IODINE, ADHESIVE. Home Medication: None. Review of Systems: Head and Neck: No red eye. No ear pain. GI: Has nausea. Has vomiting. : No polyuria. No dysuria. No hematuria. CAREER CONSULTANT: Not applicable. Respiratory: No shortness of breath. Cardiovascular: No chest pain. Endocrine: No polydipsia. Skin: No rash. Neuro: Has neuropathy. Musculoskeletal: No joint pain. Physical Examination: Vital Signs: Blood pressure of 131/88, pulse of 84. Chest: Clear to auscultation. Heart: S1, S2. Regular. Abdomen: Soft, nontender. Extremities: No edema. Laboratory Data: WBC 7.8, H and H 15.3/43.8, platelets 230. Sodium of 136, potassium 3.8, bicarb 20 , BUN is 23, creatinine 1.8, calcium 8.2. Urinalysis, specific gravity of 10 to 25, + 2 protein. Current Medications: The patient on include nicotine patch, heparin, breathing treatment, and IV flu id. Assessment And Plan: 1.Acute kidney injury on chronic kidney disease, mostly secondary to diabetes; nephropathy and prere nal secondary to glucose diuresis. I am going to go ahead and send for full workup for the patient g ivslim the presence of cancer, autoimmune disease even though I doubt it need to be ruled out. 2.Hypertension with occasional low blood pressure. I am going to continue hydration, especially wit h the presence of acute kidney injury. 3.Diabetes as by primary. 4.Lung cancer with possible met as by primary. We will follow up. Thank you, Dr. Loza for allowing us to participate in the care of your patient. ROSELIA/ANYA Voice ID: [id number] Report ID: [id number]
[2018-07-06] MEDS ORDERED: ALBUTEROL 2.5 MG/3 ML NEB SOL NEB PRN (17:00)
--- NOTE | 2018-07-06 20:38 | RAD REPORT ---
EXAM DESCRIPTION: US - Renal Ultrasound-Complete - 07/06/2018 2:17 pm CLINICAL HISTORY: JAVIER Flank pain COMPARISON: <Comparisons> FINDINGS: The right kidney appears normal echogenicity. The right kidney measures 8.8 x 5.1 x 3.8 cm. No hydronephrosis, focal mass or perinephric fluid. 12 mm benign renal cyst. The left kidney measures 10.1 x 4.8 x 4.5 cm. The left kidney appears quite echogenic. No hydronephro sis. Multiple small cortical benign cysts. The urinary bladder is incompletely distended without gross abnormality seen. IMPRESSION: Left kidney appears quite echogenic, compatible with underlying medical renal disease. N o hydronephrosis seen.
[2018-07-07] MEDS: NA CHLORIDE 0.9% 1,000 ML IV SCH ×2 (00:10→09:13)
[2018-07-07] MEDS: HEPARIN 5000 UNIT/ML 1 ML VIAL SQ SCH ×2 (00:17→09:00)
[2018-07-07] MEDS: IPRATROPIUM BROM 0.5MG/2.5ML NEB SCH ×3 (02:05→14:00)
[2018-07-07 03:40] VITALS: O2SAT 98
[2018-07-07 06:40] VITALS: BMI 5356.9
[2018-07-07 06:50] LABS: Absolute Lymphocytes (CBC) 2.3 K/uL (0.7-4.9); Absolute Monocytes 0.3 K/uL (0.1-1.3); Absolute Neutrophil 3.8 K/uL (1.8-8.0); Basophils % 0.6 % (0-1.3); Eosinophils % 2.4 % (0-4.4); Hematocrit 41.7 % (39.6-49.0); Lymphocytes % 34.8 % (15.3-44.8); MPV 7.9 fL (7.6-11.3); Monocytes % 5.2 % (3.3-12.3); RBC Red Blood Cell Count 4.46 M/uL (4.33-5.43)
[2018-07-07 07:10] LABS: Albumin 3.1 g/dL (3.4-5.0); Bilirubin Total 0.4 mg/dL (0.2-1.0); Phosphorus 1.9 mg/dL (2.5-4.9); Potassium 4.6 mmol/L (3.5-5.1); Protein, Total 6.3 g/dL (6.4-8.2)
[2018-07-07 08:03] LABS: Rheumatoid Factor NEG (NEG)
[2018-07-07] MEDS ORDERED: SITAGLIPTIN PHOS 100 MG TAB PO SCH (09:00)
[2018-07-07] MEDS: NICOTINE 21 MG/PAT TD SCH (09:00)
[2018-07-07] MEDS: INSULIN -REGULAR HUMAN 50 UNIT/0.5 ML ML SQ SCH ×2 (09:09→12:22)
--- NOTE | 2018-07-07 11:52 | P.DS ---
Admission Date: 07/05/18 Discharge Date: 07/07/18 Disposition: ROUTINE DISCHARGE Discharge Condition: GOOD Reason for Admission: NAUSEA/VOMITING - Problems (1) Uncontrolled type 2 DM with hyperosmolar nonketotic hyperglycemia Current Visit: Yes Status: Resolved (2) Small cell lung cancer Current Visit: Yes Status: Chronic Brief History of Present Illness: pt is 48 y/o man with PMhx of DM diagnosed 3 yrs ago but was not taking his insulin for the last 2 yrs,non small cell lung cancer s/p chemotherp[ay and radiation with mets to the brain,DVt s/p IVC filter ,hernia presented to the emergency room with nausea and vomiting associated with sob and found to have BS around 600 and pt was given insulin and IVF hydration his BS improved but continued to have nausea and abdominal pain,pt also found to have CR of 2.3 pt is very poor historian and doesnt remember his oncologist name and ddidnt have pcp for the last 2 yrs because of insurance issues and was not taking any meds Hospital Course: Overall during the hospital stay patient stable Patient was initially admitted to the hospital for HHS most likely secondary to uncontrolled diabetes. Patient was started on insulin drip and was admitted to the ICU. Patient's hyperglycemia did resolve while here in the hospital and thus patient was switched over to oral diabetic medication. Patient has been diagnosed with diabetes over 3 years ago and has not been taking his medication for over 2 years due to losing insurance and not having a primary care provider. Patient was started on Januvia here in the hospital. Patient did have elevated creatinine thus was not prescribed metformin. Blood sugars on Januvia along with sliding scale were less than 200. Patient then was educated extensively regarding diet and exercise with diabetes and the need to continue taking Januvia. Patient can then follow up with primary care provider and keep a blood sugar log if needed patient can then be started on insulin when he has and that can monitor him closely for hypoglycemia. Patient demonstrate understanding and thus was discharged home under stable condition. While here in spite of patient also complained of having some headaches and thus the head CT was done given the history of non-small cell carcinoma with mets to the brain. Patient's head CT was within normal limits and patient was prescribed Topamax which did help him with his headache. Patient again was educated extensively on the need to establish care with a primary care provider and follow up with oncology for his lung cancer. Patient again demonstrate understanding and thus was discharged home under stable condition. Vital Signs/Physical Exam: Temp Pulse Resp BP Pulse Ox 98.4 F 83 20 117/75 97 07/07/18 08:00 07/07/18 08:00 07/07/18 08:00 07/07/18 08:00 07/07/18 08:00 General: Alert, In no apparent distress HEENT: Atraumatic, PERRLA, EOMI Neck: Supple, JVD not distended Respiratory: Clear to auscultation bilaterally, Normal air movement Cardiovascular: Regular rate/rhythm, Normal S1 S2 Gastrointestinal: Normal bowel sounds, No tenderness Musculoskeletal: No tenderness Integumentary: No rashes Neurological: Normal speech, Normal tone, Normal affect Lymphatics: No axilla or inguinal lymphadenopathy Laboratory Data at Discharge: WBC 6.6 K/uL (4.3-10.9) D 07/07/18 06:25 Hgb 14.0 g/dL (13.6-17.9) 07/07/18 06:25 Hct 41.7 % (39.6-49.0) 07/07/18 06:25 Plt Count 205 K/uL (152-406) 07/07/18 06:25 PT 10.7 SECONDS (9.5-12.5) 07/05/18 12:14 INR 0.90 07/05/18 12:14 Sodium 139 mmol/L (136-145) 07/07/18 06:25 Potassium 4.6 mmol/L (3.5-5.1) 07/07/18 06:25 BUN 16 mg/dL (7-18) 07/07/18 06:25 Creatinine 1.60 mg/dL (0.55-1.3) H 07/07/18 06:25 Glucose 157 mg/dL (74-106) H 07/07/18 06:25 Uric Acid 5.0 mg/dL (3.5-7.2) 07/07/18 06:25 Phosphorus 1.9 mg/dL (2.5-4.9) L 07/07/18 06:25 Magnesium 2.0 mg/dL (1.8-2.4) 07/05/18 12:14 Total Bilirubin 0.4 mg/dL (0.2-1.0) 07/07/18 06:25 AST 20 U/L (15-37) 07/07/18 06:25 ALT 27 U/L (12-78) 07/07/18 06:25 Alkaline Phosphatase 130 U/L (45-117) H 07/07/18 06:25 Home Medications: Atorvastatin Calcium [Lipitor] 20 mg PO BEDTIME #30 tab 07/07/18 Sitagliptin Phosphate [Januvia*] 50 mg PO DAILY #30 tab 07/07/18 New Medications: Atorvastatin Calcium [Lipitor] 20 mg PO BEDTIME #30 tab Sitagliptin Phosphate [Januvia*] 50 mg PO DAILY #30 tab Diet: Regular Activity: Ad rudi
[2018-07-07 13:00] LABS: Barbiturates NEGATIVE (NEGATIVE); Benzodiazepines NEGATIVE (NEGATIVE); Cocaine NEGATIVE (NEGATIVE); METHAMPHETAM NEGATIVE (NEGATIVE); Methadone NEGATIVE (NEGATIVE); Opiates NEGATIVE (NEGATIVE); Phencyclidine NEGATIVE (NEGATIVE); THC Cannibis POSITIVE (NEGATIVE)
[2018-07-07 13:13] VITALS: BP 127/73; TEMP 97.8
[2018-07-07] MEDS ORDERED: PNEUMOCOCCAL VACCINE 0.5 ML IMVAC ONE (16:00)
[2018-07-07] MEDS ORDERED: TOPIRAMATE 25 MG TAB PO SCH (21:00)
--- NOTE | 2018-07-08 20:51 | PN ---
Date of Progress Note: 07/07/2018 Chief Complaint: Acute on chronic kidney injury. History: The patient developed nonoliguric acute kidney injury secondary to prerenal azotemia in set ting of uncontrolled diabetes. The patient was found to have hyperglycemia, developed hypovolemia an d subsequently was found to have elevated BUN and creatinine. On arrival to the hospital BUN was 23, creatinine 1.8. Urinalysis showed specific gravity of 1.025 and urine showed 2+ protein correspondi ng with moderately severe proteinuria. Review of Systems: Denies fever, chills. Physical Examination: Lungs: Few crackles at bases. Heart: S1, S2. Abdomen: Soft, benign. Extremities: No edema. Laboratory Data: WBC 7.8, hemoglobin 15.3, hematocrit 43.8, platelet count 230,000. Sodium 136, pot assium 3.8, bicarbonate 20, BUN 23, creatinine 1.8, calcium 8.2. Impression And Plan: 1.Acute kidney injury on chronic kidney disease secondary to prerenal azotemia, renal hypoperfusion, was precipitated by uncontrolled diabetes and glucose diuresis. Continue with insulin for diabetic management. The patient received IV fluids for hydration. The patient tolerates p.o. intake. The p atient will advance with p.o. intake as tolerated. Monitor fluid balance. 2.The patient has history of cancer, has a recommendation from primary team. The patient was diagno sed with lung cancer and will follow up with primary physician, may need to see compressed gas plant worker and onc ologist. 3.Diabetes mellitus. Continue insulin. Avoid metformin due to the fact the patient has chronic kid mari disease and high risk for lactic acidosis related to metformin. 4.Proteinuria, likely related to diabetic kidney disease. The patient will follow up outpatient for further workup. EB/MODL Voice ID: [id number] Report ID: [id number]
[2018-07-10 02:42] LABS: HBsAG Nonreactive (Nonreactive)
[2018-07-10 10:19] LABS: P-ANCA Anti-Myeloperoxidase Ab <1.0 AI (<1.0)
[2018-07-10 15:01] LABS: HIV AG/AB 4TH GEN Non-reactive (Non-reactive)
[2018-07-10 22:02] LABS: Vitamin D 1,25-Dihydroxy Total 47 pg/mL (18-72); Vitamin D,1,25-OH2, D2 12 pg/mL
== END 2018-07-07 16:25 | disposition home or self-care (01) | DRG 638 ==
LOC: ER 11:04 → 2ND 18:19 → 3RD-ICU 23:08 → 4TH 07-06 10:10
PROVIDERS: ADMIT Internal Medicine; ATTEND Family Medicine
DX: E11.00 Type 2 diabetes mellitus with hyperosmolarity without nonketotic hyperglycemic-hyperosmolar coma (NKHHC) (principal); N17.9 Acute kidney failure, unspecified; E87.1 Hypo-osmolality and hyponatremia; E11.21 Type 2 diabetes mellitus with diabetic nephropathy; I12.9 Hypertensive chronic kidney disease with stage 1 through stage 4 chronic kidney disease, or unspecified chronic kidney disease; E11.22 Type 2 diabetes mellitus with diabetic chronic kidney disease; N18.9 Chronic kidney disease, unspecified; K40.90 Unilateral inguinal hernia, without obstruction or gangrene, not specified as recurrent; Z23 Encounter for immunization; Z85.118 Personal history of other malignant neoplasm of bronchus and lung; Z85.841 Personal history of malignant neoplasm of brain; Z86.718 Personal history of other venous thrombosis and embolism; Z92.21 Personal history of antineoplastic chemotherapy; Z92.3 Personal history of irradiation
CPT/HCPCS: 36415; 70450; 71045; 76770; 80048; 80053; 80069; 80076; 80307; 81003; 81015; 82570; 82652; 82947; 82962; 83036; 83520; 83540; 83735; 83880; 83930; 83970; 84156; 84466; 84484; 84550; 85025; 85610; 86021; 86038; 86160; 86225; 86317; 86430; 86706; 87340; 87389; 90471; 90670; 93005; 96365; 96367; 96372; 99285; J1644; J2270; J2405; J7030

== ENCOUNTER 2018-09-08 17:46 | Inpatient (IN) | payer OTHER ==
--- OUTSIDE RECORDS SUMMARY | 2018-09-08 17:54 | XMS REPORT | Continuity of Care Document ---
:1970 Author Organization [facility] Care Team Providers Name Role Phone [facility] Unavailable Unavailable Problems Problem Status Onset Classification Date Comments Source Date Reported Discharge 02/06/20 02/13/2016 Diagnosis: [facility] VOMITTING, COUGH Active 02/06/20 WITH BLOOD [facility] Discharge 08/10/19 08/13/2015 Diagnosis: [facility] Cholelithiasis Discharge 08/10/19 08/13/2015 Diagnosis: [facility] Abdominal pain ABDOMINAL PAIN Active 08/10/19 [facility] Discharge 09/01/19 09/04/2014 Diagnosis: [facility] Conjunctivitis PINK EYE, Active 09/01/19 CONGESTION [facility] EAR PAIN Active 09/21/19 [facility] LOWER BACK PAIN/ Active 03/31/19 INJURY [facility] Abscess Resolved Problem 02/13/2016 [facility] Diabetes mellitus Resolved Problem 02/13/2016 [facility] Has seen 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 Hyperlipidemia Resolved Problem 02/13/2016 [facility] Hypertension Resolved Problem 02/13/2016 [facility] Abdominal hernia Resolved Problem 02/13/2016 [facility] OTHER NONSPECIFIC Active ABNORMAL FINDING [facility] OF Medications Medication Details Route Status Patient Ordering Order Source Instructions Provider Date Protonix 40 mg, 1 tab, Inactive Route: PO, 2015 Drug form: ECTAB, Before Dinner, Start date: 02/10/16 16:30:00 TREATING MACHINE OPERATOR, Duration: 30 day, Stop date: 03/10/16 16:30:00 CSTNotes: Tablet should not be chewed or crushed. (Same as: Protonix) Amoxicillin 875 MG 875 mg=1 tab, Active / Clavulanate 125 PO, Q12H, # 20 2015 MG Oral Tablet tab, 0 [Augmentin 875-mg] Refill(s) doxycycline 100 mg=1 tab, Inactive monohydrate 100 mg PO, Q12H, X 10 2015 oral tablet day, # 20 tab, 0 Refill(s) Ciprofloxacin 500 500 mg=1 tab, Active 02/09/ [facility] MG Oral Tablet PO, Q12H, X 10 2016 [Cipro] day, # 20 tab, 0 Refill(s) 200 ACTUAT 2 puff, Active Albuterol 0.09 INHALATION, 2016 [facility] MG/ACTUAT Metered Q6H, PRN for Dose Inhaler shortness of breath or wheezing, # 9 gm, 0 Refill(s) Acetaminophen 325 1 tab, PO, Active 02/09/ [facility] MG / Hydrocodone Q6H, PRN for 2016 [facility] Bitartrate 10 MG pain, # 30 Oral Tablet [[place] tab, 0 10/325] Refill(s), given to patient tramadol 50 mg, PO, Active 02/09/ [facility] hydrochloride 50 Q6H, PRN Pain, 2016 [facility] MG Oral Tablet X 7 day, # 30 tab, 0 Refill(s) Levemir FlexPen 20 unit, 0.2 No Longer mL, Route: Active 2015 [facility] SUB-Q, Drug form: INJ, Bedtime, Dosing Weight 77.528, kg, Start date: 02/09/16 21:00:00 TREATING MACHINE OPERATOR, Duration: 30 day, Stop date: 03/09/16 21:00:00 CSTNotes: Same as Levemir Do not hold insulin without contacting prescriber WASTE: F/P - Black; E - [employer] Trash Bin "single patient use only" tramadol 50 mg, 1 tab, No Longer 02/09/ [facility] hydrochloride 50 Route: PO, Active 2015 [facility] MG Oral Tablet Drug form: TAB, Q4H, Dosing Weight 77.528, kg, PRN Pain Score 1-3, Start date: 02/09/16 18:56:00 TREATING MACHINE OPERATOR, Duration: 30 day, Stop date: 03/10/16 18:55:00 CSTNotes: Not to exceed 400mg/day. (Same As: Ultram) Acetaminophen 325 2 tab, Route: No Longer 02/09/ [facility] MG / Hydrocodone PO, Drug Form: Active 2015 [facility] Bitartrate 5 MG TAB, Dosing Oral Tablet Weight 80.455, kg, Q4H, PRN Pain Score 4-6, Start date: 02/09/16 18:56:00 TREATING MACHINE OPERATOR, Duration: 30 day, Stop date: 03/10/16 18:55:00 CSTNotes: (Same as: [place] 325/5) Do not exceed 4gm/day of acetaminophen. Iohexol 50 mL, Route: Inactive PO, Drug Form: 2015 [facility] SOLN, Dosing Weight 77.528, kg, ONCE, STAT, Start date: 02/09/16 15:14:00 TREATING MACHINE OPERATOR, Stop date: 02/09/16 15:14:00 TREATING MACHINE OPERATOR Morphine 4 mg, 1 mL, No Longer Route: IVP, Active 2015 [facility] Drug form: INJ, Q4H, Dosing Weight 80.455, kg, PRN Pain Score 7-10, Priority: NOW, Start date: 02/09/16 14:15:00 TREATING MACHINE OPERATOR, Duration: 30 day, Stop date: 03/10/16 14:14:00 CSTNotes: (Same as:MORPhine Sulfate) Insulin, Aspart, 8 unit, 0.08 No Longer Human mL, Route: Active 2015 [facility] SUB-Q, Drug form: SOLN, TID-Before Meals, Dosing Weight 77.528, kg, Start date: 02/09/16 7:30:00 TREATING MACHINE OPERATOR, Duration: 30 day, Stop date: 03/09/16 16:30:00 CSTNotes: Roll in palms of hands gently; Do not shake vigorously. (Same as: NovoLOG) "single patient use only" WASTE: F/P - Black; E - Municipal Trash Bin Stable for 28 days at room temperature. Expires in days from Date Phenergan 12.5 mg, 50 No Longer mL, Route: Active 2015 [facility] IVPB, Drug form: SOLN, Q4H, Dosing Weight 77.528, kg, PRN Other -See Comment, Start date: 02/08/16 8:00:00 TREATING MACHINE OPERATOR, Duration: 30 day, Stop date: 03/09/16 7:59:00 TREATING MACHINE OPERATOR Meperidine 12.5 mg, 0.5 Inactive mL, Route: 2015 [facility] IVP, Drug form: INJ, Q30Min, Dosing Weight 77.528, kg, PRN Other -See Comment, For shivering, Start date: 02/08/16 7:00:00 TREATING MACHINE OPERATOR, Duration: 2 doses or times, Stop date: 02/08/16 15:00:00 CSTNotes: (Same as: Demerol) "Use Precaution in Elderly, Seizure disorders, and Renal impairment" Diphenhydramine 12.5 mg, 0.25 Inactive mL, Route: 2015 [facility] IVP, Drug form: INJ, Q6H, Dosing Weight 77.528, kg, PRN Itching, Start date: 02/08/16 7:00:00 TREATING MACHINE OPERATOR, Stop date: 02/08/16 20:00:00 CSTNotes: (Same as: Benadryl) Glycopyrrolate 0.2 mg, 1 mL, Inactive Route: IVP2015 [facility] Drug form: INJ, Q5Min, Dosing Weight 77.528, kg, PRN Bradycardia, Start date: 02/08/16 7:00:00 TREATING MACHINE OPERATOR, Duration: 3 doses or times, Stop date: 02/08/16 20:00:00 CSTNotes: (Same as: Isabel) Naloxone 0.4 mg, 1 mL, Inactive Route: IVP2015 [facility] Drug form: INJ, Q2MIN, Dosing Weight 77.528, kg, PRN Narcotic Reversal, Start date: 02/08/16 7:00:00 TREATING MACHINE OPERATOR, Duration: 8 doses or times, Stop date: 02/08/16 20:00:00 CSTNotes: Same as Narcan Albuterol 0.83 2.49 mg, 0.5 Inactive MG/ML Inhalant mL, Route: 2015 [facility] Solution NEB, Drug form: SOLN, Q20Min, Dosing Weight 77.528, kg, PRN Wheezing, Priority: STAT, Start date: 02/08/16 7:00:00 TREATING MACHINE OPERATOR, Stop date: 02/08/16 20:00:00 CSTNotes: SEE RT DOCUMENTATION MEDICATION WASTE Product Size: 2.5 mg Product Wasted: ___ mg Labetalol 10 mg, 2 mL, Inactive Route: IVP, 2015 [facility] Drug form: INJ, Q5Min, Dosing Weight 77.528, kg, PRN Elevated BP, Start date: 02/08/16 7:00:00 TREATING MACHINE OPERATOR, Duration: 5 doses or times, Stop date: 02/08/16 20:00:00 CSTNotes: (Same as: Normodyne, Trandate) Push over 2 minutes Give bolus over 2-3 minutes. Hydralazine 10 mg, 0.5 mL, Inactive Route: IVP2015 [facility] Drug form: INJ, Q20Min, Dosing Weight 77.528, kg, PRN Elevated BP, Start date: 02/08/16 7:00:00 TREATING MACHINE OPERATOR, Duration: 2 doses or times, Stop date: 02/08/16 20:00:00 CSTNotes: (Same as: Apresoline) Push over 5 minutes Oxycodone 5 mg, 1 tab, Inactive Route: PO, 2015 [facility] Drug form: TAB, Q4H, Dosing Weight 77.528, kg, PRN Pain Score 4-6, Start date: 02/08/16 7:00:00 TREATING MACHINE OPERATOR, Stop date: 02/08/16 20:00:00 CSTNotes: (Same as: Roxicodone) Acetaminophen 1,000 mg, 2 No Longer tab, Route: Active 2015 [facility] PO, Drug form: TAB, ONCE, Dosing Weight 77.528, kg, PRN Pain Score 1-3, Start date: 02/08/16 7:00:00 TREATING MACHINE OPERATOR, Duration: 1 doses or times, Stop date: Limited # of timesNotes: Max acetaminophen 4000 mg/day (4 gm/day). (Same as: Tylenol Extra Strength) Morphine 2 mg, 1 mL, Inactive Route: IVP2015 [facility] Drug form: INJ, Q5Min, Dosing Weight 77.528, kg, PRN Pain Score 4-6, Start date: 02/08/16 7:00:00 TREATING MACHINE OPERATOR, Duration: 5 doses or times, Stop date: 02/08/16 20:00:00 CSTNotes: (Same as:MORPhine Sulfate) Metoprolol 1 mg, 1 mL, Inactive Route: IVP2015 [facility] Drug form: INJ, Q5Min, Dosing Weight 77.528, kg, PRN Other -See Comment, Start date: 02/08/16 7:00:00 TREATING MACHINE OPERATOR, Duration: 5 doses or times, Stop date: 02/08/16 20:00:00 CSTNotes: (Same as: Lopressor) Push over 2 minutes Flumazenil 0.2 mg, 2 mL, Inactive Route: IVP2015 [facility] Drug form: INJ, PRN, Dosing Weight 77.528, kg, PRN Benzodiazepine Reversal, Initial dose, Start date: 02/08/16 7:00:00 TREATING MACHINE OPERATOR, Stop date: 02/08/16 20:00:00 CSTNotes: (Same as: Romazicon) Ondansetron 4 mg, 2 mL, No Longer Route: IVP, Active 2015 [facility] Drug form: INJ, ONCE, Dosing Weight 77.528, kg, PRN Nausea & Vomiting, Start date: 02/08/16 7:00:00 CSTNotes: (Same as: Zofran) MEDICATION WASTE Product Size: 4 mg Product Wasted: ___ mg Promethazine 6.25 mg, 50 No Longer mL, Route: Active 2015 [facility] IVPB, Drug form: SOLN, ONCE, Dosing Weight 77.528, kg, PRN Nausea & Vomiting, Start date: 02/08/16 7:00:00 TREATING MACHINE OPERATOR Dexamethasone 4 mg, 1 mL, No Longer Route: IVP, Active 2015 [facility] Drug form: INJ, ONCE, Dosing Weight 77.528, kg, PRN Nausea & Vomiting, Start date: 02/08/16 7:00:00 CSTNotes: Concentration: 4mg/ml Midazolam 1 mg, 1 mL, Inactive Route: IVP2015 [facility] Drug form: INJ, Q5Min, Dosing Weight 77.528, kg, PRN Anxiety, Start date: 02/08/16 7:00:00 TREATING MACHINE OPERATOR, Duration: 2 doses or times, Stop date: 02/08/16 20:00:00 CSTNotes: (Same as: Versed) MEDICATION WASTE Product Size: 2 mg Product Wasted: ___ mg Lidocaine 5 mL, Route: Inactive NEB, Drug 2015 [facility] Form: SOLN, Dosing Weight 77.528, kg, ONCE, Start date: 02/08/16 7:00:00 TREATING MACHINE OPERATOR, Stop date: 02/08/16 7:00:00 TREATING MACHINE OPERATOR sodium chloride 1,000 mL, No Longer 0.9% 1000 ml INJ Rate: 40 Active 2015 [facility] 1,000 mL ml/hr, Infuse over: 25 hr, Route: IV, Dosing Weight 77.528 kg, Total Volume: 1,000, Start date: 02/08/16 6:52:00 TREATING MACHINE OPERATOR, Duration: 1 doses or times, Stop date: 02/09/16 7:51:00 TREATING MACHINE OPERATOR azithromycin 500 500 mg, 2 tab, No Longer mg oral tablet Route: PO, Active 2015 [facility] Drug form: TAB, Daily, Dosing Weight 77.528, kg, Start date: 02/07/16 16:00:00 TREATING MACHINE OPERATOR, Duration: 30 day, Stop date: 03/07/16 16:00:00 CSTNotes: Take 1 hour before or 2 hours after meals. (Same As: Zithromax) Robitussin-AC oral 10 ml, Route: No Longer syrup PO, Drug Form: Active 2015 [facility] LIQ, Dosing Weight 80.455, kg, Q4H, NOW, Start date: 02/07/16 9:26:00 TREATING MACHINE OPERATOR, Duration: 30 day, Stop date: 03/08/16 8:00:00 CSTNotes: (Same As: Robitussin AC) Tessalon Perles 200 mg, 2 cap, No Longer Route: PO, Active 2015 [facility] Drug form: CAP, TID, Dosing Weight 80.455, kg, Start date: 02/06/16 22:00:00 TREATING MACHINE OPERATOR, Duration: 30 day, Stop date: 03/07/16 14:00:00 CSTNotes: (Same As: Tessalon Perles) "Do Not Crush" metoprolol 25 mg, 1 tab, No Longer tartrate Route: PO, Active 2015 [facility] Drug form: TAB, Q12H, Dosing Weight 80.455, kg, Start date: 02/06/16 21:00:00 TREATING MACHINE OPERATOR, Duration: 30 day, Stop date: 03/07/16 9:00:00 CSTNotes: (Same as: Lopressor) Levemir FlexPen 10 unit, 0.1 No Longer mL, Route: Active 2015 [facility] SUB-Q, Drug form: INJ, Bedtime, Dosing Weight 77.528, kg, Start date: 02/06/16 21:00:00 TREATING MACHINE OPERATOR, Stop date: 03/06/16 21:00:00 CSTNotes: Same as Levemir Do not hold insulin without contacting prescriber WASTE: F/P - Black; E - Municipal Trash Bin "single patient use only" Protonix 40 mg, Route: No Longer IVP, Drug Active 2015 [facility] form: INJ, Before Dinner, Dosing Weight 80.455, kg, Start date: 02/06/16 16:30:00 TREATING MACHINE OPERATOR, Stop date: 03/06/16 16:30:00 CSTNotes: For IV push reconstitute with 10 ml 0.9% sodium chloride and push over 2 minutes. (Same as: Protonix) Hydralazine 10 mg, 0.5 mL, No Longer Route: IVP, Active 2015 [facility] Drug form: INJ, Q4H, Dosing Weight 80.455, kg, PRN Hypertension, sbp>160 or dbp>110, Start date: 02/06/16 15:03:00 TREATING MACHINE OPERATOR, Duration: 30 day, Stop date: 03/07/16 15:02:00 CSTNotes: (Same as: Apresoline) Push over 5 minutes Robitussin-AC oral 10 ml, Route: No Longer syrup PO, Drug Form: Active 2015 [facility] LIQ, Dosing Weight 80.455, kg, Q4H, PRN Cough, Start date: 02/06/16 15:01:00 TREATING MACHINE OPERATOR, Duration: 30 day, Stop date: 03/07/16 15:00:00 CSTNotes: (Same As: Robitussin AC) Insulin, Aspart, 3 unit, 0.03 No Longer Human mL, Route: Active 2015 [facility] SUB-Q, Drug form: SOLN, Bedtime, Dosing Weight 80.455, kg, PRN Blood Glucose Results, Start date: 02/06/16 14:51:00 TREATING MACHINE OPERATOR, Duration: 30 day, Stop date: 03/07/16 14:50:00 CSTNotes: Roll in palms of hands gently; Do not shake vigorously. (Same as: NovoLOG) "single patient use only" WASTE: F/P - Black; E - Municipal Trash Bin Stable for 28 days at room temperature. Expires in days from Date Glucagon 1 mg, Route: No Longer IM, Drug form: [facility] 2015 [facility] PDR/INJ, PRN, Dosing Weight 80.455, kg, PRN Blood Glucose Results, Start date: 02/06/16 14:51:00 TREATING MACHINE OPERATOR, Duration: 30 day, Stop date: 03/07/16 14:50:00 TREATING MACHINE OPERATOR Dextrose 50% 25 gm, 50 mL, No Longer Syringe Route: IVP, 2015 [facility] Drug Form: INJ, Dosing Weight 80.455, kg, PRN, PRN Blood Glucose Results, Start date: 02/06/16 14:51:00 TREATING MACHINE OPERATOR, Duration: 30 day, Stop date: 03/07/16 14:50:00 TREATING MACHINE OPERATOR Ceftriaxone 2 gm, Route: No Longer IVPB, [id number], 2015 [facility] Dosing Weight 80.455, kg, Start date: 02/06/16 14:00:00 TREATING MACHINE OPERATOR, Duration: 30 day, Stop date: 03/06/16 14:00:00 CSTNotes: (Same As: Rocephin). Use with 100 mL NS and infuse over 30 min MEDICATION WASTE Product Size: 2000 mg Product Wasted: ___ mg Azithromycin 500 mg, Route: No Longer IVPB, [id number], [facility] 2015 [facility] Dosing Weight 80.455, kg, Start date: 02/06/16 14:00:00 TREATING MACHINE OPERATOR, Duration: 30 day, Stop date: 03/06/16 14:00:00 CSTNotes: (Same As: Zithromax IV) Saline Flush 0.9% 10 ml, Route: No Longer IVP, Drug [facility] 2015 [facility] Form: INJ, Dosing Weight 80.455, kg, PRN, PRN Line Flush, Start date: 02/06/16 13:17:00 TREATING MACHINE OPERATOR, Duration: 30 day, Stop date: 03/07/16 13:16:00 CSTNotes: (Same as: BD Posiflush) Sodium Chloride 1,000 mL, No Longer 0.154 MEQ/ML Rate: 100 Active 2015 [facility] Injectable ml/hr, Infuse Solution over: 10 hr, Route: IV, Dosing Weight 80.455 kg, Total Volume: 1,000, Start date: 02/06/16 13:17:00 TREATING MACHINE OPERATOR, Duration: 30 day, Stop date: 03/07/16 13:16:00 TREATING MACHINE OPERATOR Acetaminophen 650 mg, 2 tab, No Longer Route: PO, Active 2015 [facility] Drug form: TAB, Q4H, Dosing Weight 80.455, kg, PRN Pain 1-3/Temp > 100.4 F, Start date: 02/06/16 13:17:00 TREATING MACHINE OPERATOR, Duration: 30 day, Stop date: 03/07/16 13:16:00 CSTNotes: Do not exceed 4 gm/day. (Same as: Tylenol) Acetaminophen 325 1 tab, Route: No Longer MG / Hydrocodone PO, Drug Form: 2015 [facility] Bitartrate 5 MG TAB, Dosing Oral Tablet Weight 80.455, kg, Q4H, PRN Pain Score 4-6, Start date: 02/06/16 13:17:00 TREATING MACHINE OPERATOR, Duration: 30 day, Stop date: 03/07/16 13:16:00 CSTNotes: (Same as: [place] 325/5) Do not exceed 4gm/day of acetaminophen. Morphine 2 mg, 1 mL, No Longer Route: IVP, 2015 [facility] Drug form: INJ, Q4H, Dosing Weight 80.455, kg, PRN Pain Score 7-10, Start date: 02/06/16 13:17:00 TREATING MACHINE OPERATOR, Duration: 30 day, Stop date: 03/07/16 13:16:00 CSTNotes: (Same as:MORPhine Sulfate) Docusate 100 mg, 1 cap, No Longer Route: PO, Active 2015 [facility] Drug form: CAP, BID, Dosing Weight 80.455, kg, PRN Constipation, Start date: 02/06/16 13:17:00 TREATING MACHINE OPERATOR, Duration: 30 day, Stop date: 03/07/16 13:16:00 CSTNotes: (Same as: Colace) (Do Not Crush) Ondansetron 4 mg, 2 mL, No Longer Route: IVP, Active 2015 [facility] Drug form: INJ, Q6H, Dosing Weight 80.455, kg, PRN Nausea & Vomiting, Start date: 02/06/16 13:17:00 TREATING MACHINE OPERATOR, Duration: 30 day, Stop date: 03/07/16 13:16:00 CSTNotes: (Same as: Zofran) MEDICATION WASTE Product Size: 4 mg Product Wasted: ___ mg Fentanyl 50 microgram, Inactive 1 mL, Route: 2015 [facility] IVP, Drug form: INJ, ONCE, Dosing Weight 80.455, kg, Priority: STAT, Start date: 02/06/16 11:47:00 TREATING MACHINE OPERATOR, Stop date: 02/06/16 11:47:00 CSTNotes: (Same as: [...] 0 Refill(s) Levaquin 750 mg, 150 Inactive mL, Route: 2015 [facility] IVPB, Drug form: SOLN, ONCE, Dosing Weight 80.455, kg, Start date: 02/06/16 5:55:00 TREATING MACHINE OPERATOR, Stop date: 02/06/16 5:55:00 CSTNotes: (Same as:Levaquin) Sodium Chloride 1,000 mL, Inactive 0.154 MEQ/ML 1,000 ml/hr, 2015 Injectable Infuse Over: 1 Solution hr, Route: IV, 1,000, Drug form: INJ, ONCE, Priority: STAT, Dosing Weight 80.455 kg, Start date: 02/06/16 5:34:00 TREATING MACHINE OPERATOR, Duration: 1 doses or times, Stop date: 02/06/16 5:34:00 TREATING MACHINE OPERATOR Acetaminophen 300 2 tab, Route: Inactive MG / Codeine PO, Drug Form: 2015 [facility] Phosphate 30 MG TAB, Dosing Oral Tablet Weight 80.455, [Tylenol with kg, ONCE, Codeine #3] Start date: 02/06/16 4:53:00 TREATING MACHINE OPERATOR, Stop date: 02/06/16 4:53:00 CSTNotes: Do not exceed 4gm/day of acetaminophen. (Same as: Tylenol with Codeine # 3) methylPREDNISolone 125 mg, 2 mL, Inactive SODium SUCCinate Route: IVP, 2015 [facility] Drug form: INJ, ONCE, Dosing Weight 80.455, kg, Start date: 02/06/16 4:52:00 TREATING MACHINE OPERATOR, Stop date: 02/06/16 4:52:00 CSTNotes: (Same as:Solu-MEDROL , A-Methapred) Diphenhydramine 50 mg, 1 mL, Inactive Route: IVP2015 [facility] Drug form: INJ, ONCE, Dosing Weight 80.455, kg, Start date: 02/06/16 4:52:00 TREATING MACHINE OPERATOR, Stop date: 02/06/16 4:52:00 CSTNotes: (Same as: Benadryl) Famotidine 20 mg, 2 mL, Inactive Route: IVP, 2015 [facility] Drug form: INJ, ONCE, Dosing Weight 80.455, kg, Start date: 02/06/16 4:52:00 TREATING MACHINE OPERATOR, Stop date: 02/06/16 4:52:00 CSTNotes: (Same as: Pepcid) Can be dilute in 5-10cc NS IVP: Slow IV push over at least 2 minutes. 12 HR 10 mL, Route: Inactive Chlorpheniramine PO, Drug Form: 2015 [facility] Maleate 1.6 MG/ML SUSPER, Dosing / Hydrocodone Weight 79.545, Bitartrate 2 MG/ML kg, ONCE, Extended Release Start date: Suspension 02/06/16 [Tussionex 4:46:00 TREATING MACHINE OPERATOR, [facility]] Stop date: 02/06/16 4:46:00 CSTNotes: (chlorpheniram ine-hydrocodon e 8-10mg/5ml LIQ) Non-formulary drug. (Same As: Tussionex [employer]) Prednisone 60 mg, 3 tab, Inactive Route: PO, 2015 [facility] Drug form: TAB, ONCE, Dosing Weight 79.545, kg, Priority: STAT, Start date: 02/06/16 4:46:00 TREATING MACHINE OPERATOR, Stop date: 02/06/16 4:46:00 CSTNotes: Take with food. Albuterol 0.833 9 mL, Route: Inactive MG/ML / INHALATION, 2015 [facility] Ipratropium Drug Form: [place] 0.167 SOLN, Dosing MG/ML Inhalant Weight 79.545, Solution [DuoNeb] kg, ONCE, Start date: 02/06/16 4:46:00 TREATING MACHINE OPERATOR, Stop date: 02/06/16 4:46:00 CSTNotes: (Same as: Duoneb) Saline Flush 0.9% 10 mL, Route: Inactive IVP, Drug 2015 [facility] Form: INJ, Dosing Weight 79.545, kg, PRN, PRN Line Flush, Start date: 02/06/16 4:45:00 TREATING MACHINE OPERATOR, Duration: 30 day, Stop date: 03/07/16 4:44:00 CSTNotes: (Same as: BD Posiflush) Ondansetron 4 MG 4 mg=1 tab, Active Disintegrating PO, TID, 2015 [facility] Tablet [Zofran] Dissolve tab under tongue, X [...] 4 mg, Route: Inactive IVP, ONCE, 2015 [facility] Dosing Weight 79.545, kg, Priority: STAT, Start date: 08/10/15 15:48:00 CDT, Stop date: 08/10/15 15:48:00 CDT Ondansetron 4 mg, Route: Inactive IVP, ONCE, 2015 [facility] Dosing Weight 79.545, kg, Priority: STAT, Start date: 08/10/15 15:48:00 CDT, Stop date: 08/10/15 15:48:00 CDT Saline Flush 0.9% 10 mL, Route: Inactive IVP, Drug 2015 [facility] Form: INJ, Dosing Weight 79.545, kg, Q12H, PRN Line Flush, Start date: 08/10/15 15:48:00 CDT, Duration: 30 day, Stop date: 09/09/15 15:47:00 CDTNotes: (Same as: BD Posiflush) Sodium Chloride 1,000 mL, Inactive 0.154 MEQ/ML 2,000 ml/hr, 2015 [facility] Injectable Infuse Over: Solution 30 minutes, Route: IV, ONCE, Priority: STAT, Dosing Weight 79.545 kg, Start date: 08/10/15 15:48:00 CDT, Duration: 1 doses or times, Stop date: 08/10/15 15:48:00 CDT bacitracin-polymyx 1 appl, BOTH No Longer in B ophthalmic EYES, QID, # 3 Active 2014 [facility] ointment gm, 0 Refill(s) Motrin 800 mg oral 800 mg=1 tab, Active tablet PO, Q8H, Pain, 2013 [facility] Take with food, # 30 tab, 0 Refill(s)Take with food acetaminophen-hydr 1-2 tab, PO, Active ocodone 325 mg-5 Q4-6H, Pain, # 2014 [facility] mg oral tablet 15 tab, 0 Refill(s) [place] 5/325 oral 2 tab, Route: Inactive tablet PO, Drug Form: 2013 [facility] TAB, Dosing Weight 85.455, kg, ONCE, Start date: 04/01/13 15:42:00, Stop date: 04/01/13 15:42:00(Same as: [place] 325/5) Do not exceed 4gm/day of acetaminophen. Motrin 800 mg, 2 tab, Inactive [place] Route: PO, 2013 [facility] Drug form: TAB, ONCE, Dosing Weight 85.455, kg, Priority: STAT, Start date: 04/01/13 15:42:00, Stop date: 04/01/13 15:42:00(Same as: Motrin) "Do Not Crush" Give with food. Allergies, Adverse Reactions, Alerts Substance Category Reaction Severity Reaction Status Date Comments Source type Reported iodinated Assertion Drug Active radiocontrast allergy [facility] dyes Iodine Mild Assertion Drug Active allergy [facility] Immunizations Immunization Date Given Site Status Last Updated Comments Source influenza virus 02/10/2016 Not Given [facility] vaccine, inactivated Results Order Name Results Value Reference Date Interpretation Comments Source Range CHEM PANEL Phosphorus 3.3 2.5 - 4.5 02/09 [facility] CHEM PANEL Magnesium 1.8 1.8 - 2.4 02/09 Lvl [facility] ELECTROLYTES CO2 27 24 - 32 02/09 [facility] ELECTROLYTES Calcium Lvl 8.7 8.5 - 10.5 02/09 [facility] ELECTROLYTES AGAP 10.8 10.0 - 02/09 [facility] 20.0 [facility] ELECTROLYTES Chloride Lvl 104 95 - 109 02/09 [facility] ELECTROLYTES eGFR 56 02/09 Result Comment: The [facility] eGFR is calculated using the CKD-EPI formula. In most young, healthy individuals the eGFR will be >90 mL/min/1.73m2 . The eGFR declines with age. An eGFR of 60-89 may be normal in some populations, particularly the elderly, for whom the CKD-EPI formula has not been extensively validated. Use of the eGFR is not recommended in the following populations:< br/>
Melinda viduals with unstable creatinine concentration s, including patients and those with serious co-morbid conditions.<b r/>
Patie nts with extremes in muscle mass or diet.

The data above are obtained from the National Kidney Disease Education Program (NKDEP) which additionally recommends that when the eGFR is used in patients with extremes of body mass index for purposes of drug dosing, the eGFR should be multiplied by the estimated BMI. ELECTROLYTES Potassium 3.8 3.5 - 5.1 02/09 [facility] Lvl /2016 [facility] ELECTROLYTES Sodium Lvl 138 135 - 145 02/09 /2015 [facility] ELECTROLYTES Creatinine 1.51 0.50 - 02/09 [facility] Lvl 1.40 /2015 [facility] ELECTROLYTES BUN 22 7 - 22 02/09 /2015 [facility] ELECTROLYTES Glucose Lvl 130 70 - 99 02/09 /2015 [facility] HEMATOLOGY WBC 8.9 3.7 - 10.4 02/09 /2015 [facility] HEMATOLOGY RBC 4.85 4.70 - 02/09 MH 6.10 /2015 [facility] HEMATOLOGY MCV 87.1 80.0 - 02/09 MH 94.0 /2015 [facility] HEMATOLOGY MCHC 32.7 32.0 - 02/09 MH 36.0 /2015 [facility] HEMATOLOGY Platelet 251 133 - 450 02/09 /2015 [facility] HEMATOLOGY RDW 13.1 11.5 - 02/09 MH 14. /2015 [facility] HEMATOLOGY Hct 42.2 42.0 - 02/09 MH 54.0 /2015 [facility] HEMATOLOGY Hgb 13.8 14.0 - 02/09 MH 18.0 /2015 [facility] HEMATOLOGY MPV 7.1 7.4 - 10.4 02/09 /2015 [facility] HEMATOLOGY MCH 28.5 27.0 - 02/09 MH 31.0 /2016 [facility] HEMATOLOGY Monocytes 5.9 2.0 - 12.0 02/09 /2015 [facility] HEMATOLOGY Lymphocytes 41.2 20.0 - 02/09 MH 40.0 /2015 [facility] HEMATOLOGY Basophils 0.5 0.0 - 1.0 02/09 /2015 [facility] HEMATOLOGY Eosinophils 2.1 0.0 - 4.0 02/09 /2015 [facility] HEMATOLOGY Segs-Bands # 4.5 1.5 - 8.1 02/09 /2015 [facility] HEMATOLOGY Lymphocytes 3.7 1.0 - 5.5 02/09 MH # /2016 [facility] HEMATOLOGY Eosinophils 0.2 0.0 - 0.5 02/09 MH # /2016 [facility] HEMATOLOGY Monocytes # 0.5 0.0 - 0.8 02/09 /2015 [facility] HEMATOLOGY Segs 50.3 45.0 - 02/09 MH 75.0 /2016 [facility] CHEM PANEL Lactic Acid 1.4 0.5 - 2.2 02/08 [facility] Lvl /2015 [facility] ELECTROLYTES AGAP 11.0 10.0 - 02/08 MH 20.0 [facility] ELECTROLYTES eGFR 54 02/08 Result Comment: The [facility] eGFR is calculated using the CKD-EPI formula. In most young, healthy individuals the eGFR will be >90 mL/min/1.73m2 . The eGFR declines with age. An eGFR of 60-89 may be normal in some populations, particularly the elderly, for whom the CKD-EPI formula has not been extensively validated. Use of the eGFR is not recommended in the following populations:< br/>
Melinda viduals with unstable creatinine concentration s, including patients and those with serious co-morbid conditions.<b r/>
Patie nts with extremes in muscle mass or diet.

The data above are obtained from the National Kidney Disease Education Program (NKDEP) which additionally recommends that when the eGFR is used in patients with extremes of body mass index for purposes of drug dosing, the eGFR should be multiplied by the estimated BMI. ELECTROLYTES Sodium Lvl 139 135 - 145 02/08 [facility] ELECTROLYTES Potassium 4.0 3.5 - 5.1 02/08 Lvl /2015 [facility] ELECTROLYTES CO2 29 24 - 32 02/08 [facility] ELECTROLYTES Chloride Lvl 103 95 - 109 02/08 [facility] ELECTROLYTES Calcium Lvl 8.9 8.5 - 10.5 02/08 [facility] ELECTROLYTES Creatinine 1.54 0.50 - 02/08 Lvl 1.40 /2015 [facility] ELECTROLYTES BUN 24 7 - 22 02/08 [facility] ELECTROLYTES Glucose Lvl 229 70 - 99 02/08 [facility] HEMATOLOGY MCV 85.8 80.0 - 02/08 94.0 [facility] HEMATOLOGY Hgb 12.8 14.0 - 02/08 MH 18.0 [facility] HEMATOLOGY Hct 38.8 42.0 - 02/08 MH 54.0 /2015 [facility] HEMATOLOGY RBC 4.52 4.70 - 02/08 MH 6.10 /2015 [facility] HEMATOLOGY WBC 10.8 3.7 - 10.4 02/08 [facility] HEMATOLOGY Platelet 350 133 - 450 02/08 [facility] HEMATOLOGY MPV 6.5 7.4 - 10.4 02/08 [facility] HEMATOLOGY RDW 13.3 11.5 - 02/08 MH 14.5 [facility] HEMATOLOGY MCH 28.2 27.0 - 02/08 MH 31.0 /2015 [facility] HEMATOLOGY MCHC 32.9 32.0 - 02/08 MH 36.0 /2016 [facility] HEMATOLOGY Basophils # 0.1 0.0 - 0.2 02/08 /2015 [facility] HEMATOLOGY Eosinophils 0.1 0.0 - 0.5 02/08 MH # /2016 [facility] HEMATOLOGY Monocytes # 0.8 0.0 - 0.8 02/08 [facility] HEMATOLOGY Lymphocytes 3.1 1.0 - 5.5 02/08 MH # /2015 [facility] HEMATOLOGY Segs-Bands # 6.8 1.5 - 8.1 02/08 [facility] HEMATOLOGY Basophils 0.6 0.0 - 1.0 02/08 [facility] HEMATOLOGY Eosinophils 0.6 0.0 - 4.0 02/08 [facility] HEMATOLOGY Monocytes 7.7 2.0 - 12.0 02/08 [facility] HEMATOLOGY Lymphocytes 28.6 20.0 - 02/08 MH 40.0 /2015 [facility] HEMATOLOGY Segs 62.5 45.0 - 02/08 MH 75.0 /2015 [facility] CHEM PANEL Magnesium 2.0 1.8 - 2.4 02/07 Lvl [facility] ELECTROLYTES Chloride Lvl 103 95 - 109 02/07 [facility] ELECTROLYTES AGAP 8.4 10.0 - 02/07 MH 20.0 [facility] ELECTROLYTES Calcium Lvl 9.0 8.5 - 10.5 02/07 [facility] ELECTROLYTES CO2 28 24 - 32 02/07 [facility] ELECTROLYTES Glucose Lvl 114 70 - 99 02/07 [facility] ELECTROLYTES BUN 21 7 - 22 02/07 [facility] ELECTROLYTES Creatinine 1.52 0.50 - 02/07 Lvl 1.40 /2015 [facility] ELECTROLYTES Sodium Lvl 135 135 - 145 02/07 [facility] ELECTROLYTES Potassium 4.4 3.5 - 5.1 02/07 Lvl [facility] ELECTROLYTES eGFR 55 02/07 [facility] Comment: The [facility] eGFR is calculated using the CKD-EPI formula. In most young, healthy individuals the eGFR will be >90 mL/min/1.73m2 . The eGFR declines with age. An eGFR of 60-89 may be normal in some populations, particularly the elderly, for whom the CKD-EPI formula has not been extensively validated. Use of the eGFR is not recommended in the following populations:< br/>
Melinda viduals with unstable creatinine concentration s, including patients and those with serious co-morbid conditions.<b r/>
Patie nts with extremes in muscle mass or diet.

The data above are obtained from the National Kidney Disease Education Program (NKDEP) which additionally recommends that when the eGFR is used in patients with extremes of body mass index for purposes of drug dosing, the eGFR should be multiplied by the estimated BMI. HEMATOLOGY Eosinophils 1.6 0.0 - 4.0 02/07 MH /2015 [facility] HEMATOLOGY Lymphocytes 3.4 1.0 - 5.5 / MH # /2016 [facility] HEMATOLOGY Basophils 0.3 0.0 - 1.0 02/07 /2015 [facility] HEMATOLOGY Monocytes # 0.6 0.0 - 0.8 02/07 /2015 [facility] HEMATOLOGY Segs-Bands # 5.3 1.5 - 8.1 02/07 /2015 [facility] HEMATOLOGY Segs 56.3 45.0 - 02/07 MH 75.0 /2016 [facility] HEMATOLOGY Monocytes 6.0 2.0 - 12.0 02/07 /2015 [facility] HEMATOLOGY Lymphocytes 35.8 20.0 - 02/07 MH 40.0 /2016 [facility] HEMATOLOGY Eosinophils 0.2 0.0 - 0.5 02/07 MH # /2016 [facility] HEMATOLOGY Platelet 363 133 - 450 02/07 /2015 [facility] HEMATOLOGY MPV 6.3 7.4 - 10.4 02/07 /2015 [facility] HEMATOLOGY MCHC 33.0 32.0 - 02/07 MH 36.0 /2016 [facility] HEMATOLOGY RDW 13.3 11.5 - 02/07 MH 14.5 /2015 [facility] HEMATOLOGY Hct 41.9 42.0 - 02/07 MH 54.0 /2016 [facility] HEMATOLOGY MCV 86.1 80.0 - 02/07 MH 94.0 /2016 [facility] HEMATOLOGY RBC 4.87 4.70 - 02/07 MH 6.10 /2016 [facility] HEMATOLOGY Hgb 13.8 14.0 - 02/07 MH 18.0 /2016 [facility] HEMATOLOGY WBC 9.4 3.7 - 10.4 02/07 /2015 [facility] HEMATOLOGY MCH 28.4 27.0 - 02/07 MH 31.0 /2016 [facility] CHEM PANEL Phosphorus 2.4 2.5 - 4.5 02/06 MH /2015 [facility] CHEM PANEL Magnesium 2.0 1.8 - 2.4 02/06 MH Lvl /2015 [facility] SPECIAL Hgb A1C 6.9 <=5.6 % 02/05 CHEMISTRY /2016 [facility] CARDIAC proBNP 40 0 - 125 02/05 [facility] TOXICOLOGY Etoh (%) <0.003 02/05 [facility] TOXICOLOGY Ethanol Lvl <3 02/05 [facility] CARDIAC CK MB 1.2 0.5 - 3.6 02/05 [facility] CARDIAC Troponin-I <0.02 0.00 - 02/05 [facility] 0.40 [facility] CARDIAC Total CK 86 12 - 191 02/05 [facility] CARDIAC CK MB Index 1.4 0.0 - 2.5 02/05 [facility] HEMATOLOGY PTT 26.0 22.9 - 02/05 MH 35.8 /2015 [facility] HEMATOLOGY PT 13.0 12.0 - 02/05 MH 14.7 [facility] HEMATOLOGY INR 0.96 0.85 - 02/05 MH 1.17 [facility] CHEM PANEL Lipase Lvl 220 73 - 393 08/09 [facility] ELECTROLYTES AGAP 12.1 10.0 - 08/09 MH 20.0 [facility] ELECTROLYTES Globulin 4.0 2.0 - 4.0 08/09 [facility] ELECTROLYTES A/G Ratio 0.8 0.7 - 1.6 08/09 [facility] ELECTROLYTES B/C Ratio 12 6 - 25 08/09 [facility] ELECTROLYTES Bili Total 0.5 0.2 - 1.3 08/09 [facility] ELECTROLYTES Alk Phos 133 39 - 136 08/09 [facility] ELECTROLYTES AST 19 0 - 37 08/09 [facility] ELECTROLYTES eGFR 54 08/09 Result Comment: The [facility] eGFR is calculated using the CKD-EPI formula. In most young, healthy individuals the eGFR will be >90 mL/min/1.73m2 . The eGFR declines with age. An eGFR of 60-89 may be normal in some populations, particularly the elderly, for whom the CKD-EPI formula has not been extensively validated. Use of the eGFR is not recommended in the following populations:< br/>
Melinda viduals with unstable creatinine concentration s, including patients and those with serious co-morbid conditions.<b r/>
Patie nts with extremes in muscle mass or diet.

The data above are obtained from the National Kidney Disease Education Program (NKDEP) which additionally recommends that when the eGFR is used in patients with extremes of body mass index for purposes of drug dosing, the eGFR should be multiplied by the estimated BMI. ELECTROLYTES Albumin Lvl 3.4 3.5 - 5.0 08/09 /2015 [facility] ELECTROLYTES ALT 44 0 - 65 08/09 /2015 [facility] ELECTROLYTES Calcium Lvl 8.8 8.5 - 10.5 08/09 /2015 [facility] ELECTROLYTES CO2 23 24 - 32 08/09 /2015 [facility] ELECTROLYTES Total 7.4 6.4 - 8.4 08/09 MH Protein /2015 [facility] ELECTROLYTES Sodium Lvl 139 135 - 145 08/09 /2015 [facility] ELECTROLYTES Potassium 4.1 3.5 - 5.1 08/09 Lvl /2015 [facility] ELECTROLYTES Chloride Lvl 108 95 - 109 08/09 /2015 [facility] ELECTROLYTES Glucose Lvl 187 70 - 99 08/09 /2015 [facility] ELECTROLYTES BUN 18 7 - 22 08/09 /2015 [facility] ELECTROLYTES Creatinine 1.56 0.50 - 08/09 Lvl 1.40 /2015 [facility] HEMATOLOGY Eosinophils 0.3 0.0 - 0.5 08/09 MH # /2016 [facility] HEMATOLOGY Segs-Bands # 7.8 1.5 - 8.1 08/09 /2015 [facility] HEMATOLOGY Lymphocytes 1.4 1.0 - 5.5 08/09 MH # /2016 [facility] HEMATOLOGY Monocytes # 0.7 0.0 - 0.8 08/09 /2015 [facility] HEMATOLOGY Segs 76.7 45.0 - 08/09 MH 75.0 /2015 [facility] HEMATOLOGY Lymphocytes 13.4 20.0 - 08/09 MH 40.0 /2016 [facility] HEMATOLOGY Monocytes 7.2 2.0 - 12.0 08/09 /2015 [facility] HEMATOLOGY Eosinophils 2.5 0.0 - 4.0 08/09 /2015 [facility] HEMATOLOGY Basophils 0.2 0.0 - 1.0 08/09 /2015 [facility] HEMATOLOGY MCHC 32.9 32.0 - 08/09 MH 36.0 /2015 [facility] HEMATOLOGY RDW 13.9 11.5 - 08/09 MH 14.5 /2015 [facility] HEMATOLOGY MCH 29.7 27.0 - 08/09 MH 31.0 /2015 [facility] HEMATOLOGY MPV 6.9 7.4 - 10.4 08/09 [facility] HEMATOLOGY Platelet 286 133 - 450 08/09 [facility] HEMATOLOGY WBC 10.1 3.7 - 10.4 08/09 [facility] HEMATOLOGY RBC 5.49 4.70 - 08/09 6.10 [facility] HEMATOLOGY MCV 90.3 80.0 - 08/09 94.0 [facility] HEMATOLOGY Hct 49.6 42.0 - 08/09 54.0 [facility] HEMATOLOGY Hgb 16.3 14.0 - 08/09 18.0 [facility] Pathology Reports No Data Provided for This Section Diagnostic Reports Report Value Date Source Chest 1view DX Clinical Indication: Abnormal chest sounds; 02/10/2016 [facility] Comparison: 02/08/2016 FINDINGS: AP chest radiographs shows normal lung volumes [...] early infiltrate which has slightly worsened. SL: [id number] Scrotal/Testicle w Clinical Indication: Scrotal pain of unknown origin 2015 [facility] Doppler US Comparison: CT of the abdomen and pelvis dated 02/09/2016. TECHNIQUE: Sonographic evaluation of the scrotum and testes [...] with normal testicular Doppler blood flow. SL: [id number] Abdomen/Pelvis wo IV Clinical Indication: Right lower lobe mass, incarcerated hernia and severe inguinal pain. 02/09/2016 [facility] contrast CT Comparison: CTA chest 02/06/2016. TECHNIQUE: Helical imaging was performed diaphragm through the symphysis with multiplanar reformations obtained. IV CONTRAST: None GI CONTRAST: None CT [...] enhanced CT, or PET CT. 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 Chest Pulmonary Clinical Indication: Dyspnea on exertion, hemoptysis 2015 [facility] Embolism CTA Comparison: None TECHNIQUE: Sequential trans-axial images were obtained with a multi-detector helical CT after iodinated contrast administration. Coronal and sagittal reconstructions were obtained. 3-D MIP reconstructions performed. 100 cc of Visipaque contrast material was [...] are no segmental pulmonary emboli noted. The main , right and left pulmonary arteries are normal. [...] tumor seen within right bronchus intermedius. SL: [id number] Chest 2 views DX Clinical Indication: Coughing for one week, difficulty breathing. 02/06/2016 [facility] Comparison: 12/16/2012 FINDINGS: PA and lateral views of the chest have been provided. Right basilar infiltrate without silhouetting of the right heart border likely represents a right lower lobe pneumonia. Heart size is normal. Central pulmonary vasculature appears normal. No effusion. No pneumothorax. Osseous structures demonstrate no acute abnormality. IMPRESSION: 1. Right lower lobe pneumonia SL: [id number] Abdomen RUQ US Clinical Indication: Abdominal pain, acute 08/10/2015 [facility] Comparison: None TECHNIQUE: Grayscale and limited color sonographic evaluation of [...] for further evaluation if clinically indicated. SL: [id number] Consultation Notes No Data Provided for This Section Discharge Summaries No Data Provided for This Section History and Physicals No Data Provided for This Section Vital Signs Vital Sign Value Date Comments Source Temperature Oral (F) 98.3 F 02/10/2016 [facility] Respitory Rate 18 02/10/2016 [facility] Systolic (mm Hg) 116 02/10/2016 [facility] Diastolic (mm Hg) 85 02/10/2016 [facility] Heart Rate 88 02/10/2016 [facility] Systolic (mm Hg) 126 02/10/2016 [facility] Diastolic (mm Hg) 69 02/10/2016 [facility] Respitory Rate 18 02/10/2016 [facility] Heart Rate 92 02/10/2016 [facility] Temperature Oral (F) 98.7 F 02/10/2016 [facility] Respitory Rate 18 02/10/2016 [facility] Systolic (mm Hg) 119 02/10/2016 [facility] Diastolic (mm Hg) 78 02/10/2016 [facility] Heart Rate 82 02/10/2016 [facility] Temperature Oral (F) 98.2 F 02/10/2016 [facility] BMI Calculated 33.38 02/06/2016 [facility] Height 152.4 cm 02/06/2016 [facility] Weight 77.528 02/06/2016 [facility] Weight 80.455 02/06/2016 [facility] BMI Calculated 34.64 02/06/2016 [facility] Height 152.4 cm 02/06/2016 [facility] Respitory Rate 16 08/10/2015 [facility] Systolic (mm Hg) 110 08/10/2015 [facility] Diastolic (mm Hg) 63 08/10/2015 [facility] Heart Rate 67 08/10/2015 [facility] Temperature Oral (F) 96.9 F 08/10/2015 [facility] Temperature Oral (F) 97.3 F 08/10/2015 [facility] Respitory Rate 18 08/10/2015 [facility] Heart Rate 72 08/10/2015 [facility] Systolic (mm Hg) 116 08/10/2015 [facility] Diastolic (mm Hg) 70 08/10/2015 [facility] Systolic (mm Hg) 111 08/10/2015 [facility] Diastolic (mm Hg) 82 08/10/2015 [facility] Temperature Oral (F) 97.5 F 08/10/2015 [facility] Heart Rate 114 08/10/2015 [facility] Respitory Rate 20 08/10/2015 [facility] Height 152.4 cm 08/10/2015 [facility] Weight 79.545 08/10/2015 [facility] BMI Calculated 34.25 08/10/2015 [facility] Weight 79.545 09/01/2014 [facility] BMI Calculated 33.13 09/01/2014 [facility] Temperature Oral (F) 98.5 F 09/01/2014 [facility] Heart Rate 104 09/01/2014 [facility] Respitory Rate 20 09/01/2014 [facility] Height 154.94 cm 09/01/2014 [facility] Systolic (mm Hg) 126 09/01/2014 [facility] Diastolic (mm Hg) 79 09/01/2014 [facility] Height 152.4 cm 04/01/2013 [facility] Weight 85.455 04/01/2013 [facility] Temperature Oral (F) 97.0 F 04/01/2013 [facility] Heart Rate 98 04/01/2013 [facility] Respitory Rate 16 04/01/2013 [facility] Systolic (mm Hg) 128 04/01/2013 [facility] Diastolic (mm Hg) 83 04/01/2013 [facility] Encounters Location Location Encounter Encounter Reason Attending ADM DC Status Source Details Type Number For Provider Date Date Visit Not Sent Emergency [id number] LOWER REGINA 04/01 04/01 Active [facility]ERS /2013 [facility] PA[place] [facility] [place] [id number] Lazaro 09/21 09/21 [facility] Emergency Raya /2013 [facility] [place] [id number] Robert Chao 09/01 09/01 [facility] [place] [facility] [id number] Luke 08/09 08/09 [place] [facility] Liz /2015 [facility] In[facility] [id number] [facility]05 [facility] Procedures No Data Provided for This Section Assessment and Plan Assessment and Plan Date Source Extracted from:Title: Progress Note * Dr. Cooper Pulmonary 02/10/2016 [facility] Author: Home Cooper MD Date: 12/23/16 Impression and Plan large lung mass in a smoker..with postobstructive pna/hemoptysis s/p bronchoscopy/bx...await path report gross exam suspicious for squamous.. continue antibiotics - bronch +NSCLC--adneocarcinoma will need molecular profile including EGFR, etc to see if candidate for TKI complete antibiotics f/u with oncology service for staging/treatment Extracted from:Title: Hospitalist H&P Author: Manuel Díaz MD Date: [...] Musculoskeletal: no peripheral edema. No joint swelling. 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 Skin: [...] Large right infrahilar mass, likely malignancy. Consult line crewman for consideration of bronchoscopy. 4. DM2. Will get a1c. Start ISS. 5. Accelerated hypertension. Start IV hydralazine prn. Start oral metoprolol. No ACEI due to renal failure. 6. Acute on chornic renal failure. Start on IVFs, avoid nephrotoxins. 7. VTE prophylaxis. SCDs. Encourage ambulation. 8. Ex-smoker. Plan of Care No Data Provided for This Section Social History Social History Date Source Social History TypeResponse 02/06/2016 [facility] Smoking Status Former smoker; Type: Cigarettes; Exposure to Tobacco Smoke None; Cigarette Smoking Last 365 Days Unable to obtain; Reg Smoking Cessation Counseling No Family History No Data Provided for This Section Advance Directives No Data Provided for This Section Functional Status No Data Provided for This Section
--- OUTSIDE RECORDS SUMMARY | 2018-09-08 17:55 | XMS REPORT | CCD ---
:1970 Author Organization [facility] Care Team Providers Name Role Phone Talon Barry Consulting Provider Allergies, Adverse Reactions, Alerts Substance Reaction Status iodinated radiocontrast dyes Active Iodine Mild Active Problem List Condition Effective Dates Status Abscess Resolved Diabetes mellitus Resolved Has seen undercutter - diabetes Resolved Hyperlipidemia Resolved Hypertension Resolved Medications Medication Instructions Start Date End Date Status Levasy 5/325 oral tablet 2 tab, Route: PO, Drug 04/01/2013 04/01/2013 Completed Form: TAB, Dosing Weight 85.455, kg, ONCE, Start date: 04/01/13 15:42:00, Stop date: 04/01/13 15:42:00(Same as: Levasy 325/5) Do not exceed 4gm/day of acetaminophen. [...]
--- OUTSIDE RECORDS SUMMARY | 2018-09-08 17:56 | XMS REPORT ---
:1970 Demographics Address [address] [place] [address] Email Address NONE Preferred Language Unknown Marital Status Unknown Worship Affiliation Unknown Race Unknown Additional Race(s) Unavailable Ethnic Group Unknown [facility] Address [address] [place] [address] Care Team Providers Name Role Phone Unavailable [...] Indication: ED PATIENTUA RFLX MICR CULT IF [id number] -04-18 16:32:00 Test Item Value Reference Range [...] NG/ML are obtained. - CT HEAD/BRAIN W/O [id number] 15:20:00 FAX: Colleen Mckenzie MD [phone] [place]: St: REG Name: MICHELLE FISHER [facility] : 1970 Age/S: 48/M [address] Unit: [id number] Loc: [place] [address] Phys: Colleen Mckenzie MD Acct: [id number] Dis Date: Status: REG ER PHONE #: [phone] Exam Date: 06/05/2018 1510 FAX #: [phone] Reason: june, h/o brain ca EXAMS: CPT CODE: [id number] CT HEAD/BRAIN W/O CONT 47877 Location: T18 CT head, 06/05/18 COMPARISON EXAMS:None of the brain TECHNIQUE: CT examination of the brain was performed without contrast on a helical scanner. Scanning conducted from skull base to vertex in the axial plane acquiring contiguous 5mm slice thickness . The examination was performed on a [facility] helical CT scanner utilizing low-dose radiation [...] Signed Report (CONTINUED) FAX: Colleen Mckenzie MD [phone] [place]: St: REG Name: MICHELLE FISHER [facility] : 1970 Age/S: 48/M [address] Unit: [id number] Loc: [place] [address] Phys: Colleen Mckenzie MD Acct: [id number] Dis Date: Status: REG ER PHONE #: [phone] Exam Date: 06/05/2018 1510 FAX #: [phone] Reason: june, h/o brain ca EXAMS: CPT CODE: [id number] CT HEAD/BRAIN W/O CONT 24827 < Continued> at 1520 Reported and signed by: Janeen Chacon MD CC: Colleen Mckenzie MD Technologist: CHIDI KATZ Dt/Tm: 06/05/2018 (1520) [email or web address] Orig Print D/T: S: 06/05/2018 (1523 PAGE 2 Signed ReportBASIC METABOLIC [id number] 15:18:00 Test Item Value Reference Range Comments [...] (test code=CA) 9.3 mg/dL 8.4-10.2 LIVER FUNCTION [id number] 15:18:00 Test Item Value Reference Range Comments [...] ALKALINE PHOSPHATASE (test 130 U/L 38-126 code=ALKP) [id number] 15:18:00 Test Item Value Reference Range Comments LIPASE (test code=LIP) 133 U/L 23-300 BASIC METABOLIC [id number] 15:16:00 Test Item Value Reference Range Comments [...] (test code=CA) 9.3 mg/dL 8.4-10.2 LIVER FUNCTION [id number] 15:16:00 Test Item Value Reference Range Comments [...] ALKALINE PHOSPHATASE (test 130 U/L 38-126 code=ALKP) [id number] 15:16:00 Test Item Value Reference Range Comments LIPASE (test code=LIP) U/L 23-300 PROTHROMBIN [id number] 15:07:00 Test Item Value Reference Range Comments [...] Food and Drug Administrationrecommendations . THROMBOPLASTIN TIME [id number] 15:07:00 Test Item Value Reference Range Comments THROMBOPLASTIN TIME PARTIAL 25.6 SECONDS 23.4-37.0 Therapeutic Range for (test code=PTT) Heparin EFFECTIVE 08/27/12 Heparin IU/mL aPTT Seconds0.3 64.30.7 88.8 CBC W/AUTO [id number] 15:02:00 Test Item Value Reference Range Comments [...] code=BA#) 0.03 x10 3/uL 0.0-0.1 LACTIC ACID [id number] 15:01:00 Test Item Value Reference Range Comments LACTIC ACID POC (test code=LACTP) 1.17 mmol/L 0.7-2.0 TROPONIN I [id number] 15:01:00 Test Item Value Reference Range Comments [...] similarmethodology is used. - XR CHEST 1 [id number] 14:53:00 [place]: St: REG Name: MICHELLE FISHER [facility] : 1970 Age/S: 48/M [address] Unit#: [id number] Loc: [place] [address] Phys: Isaias Gruber Acct: [id number] Dis Date: Status: REG ER PHONE #: [phone] Exam Date: 06/05/2018 1440 FAX #: [phone] Reason: CODE SEPSIS EXAMS: CPT CODE: [id number] XR CHEST 1 V 72051 EXAM: Portable chest x-ray, one view INDICATION: [...] basilar atelectasis and or early infiltrate at 8563 Reported and signed by: Rodolfo Kim M.D. CC: Technologist: KYARA KHANNA (Anais) Trnscrd Date/Time/By: 06/05/2018 (9421) : By: Lizet PAGE 1 Signed Report [place]: St: REG----- Name : MICHELEL FISHER [facility] : Age/S: 48/M [address] Unit #: [id number] Loc: [place] [address] Phys: Isaias Gruber Acct: [id number] Dis Date: Status: REG ER PHONE #: [phone] Exam Date: 06/05/2018 1440 FAX #: [phone] Reason: CODE SEPSIS EXAMS: CPT CODE: [id number] XR CHEST 1 V 12191 <Continued> Orig Print D/T: S: 06/05/2018 (5519) PAGE 2 Signed Report
[2018-09-08] MEDS ORDERED: NA CHLORIDE 0.9% 1,000 ML ONE (18:58)
[2018-09-08] MEDS ORDERED: FENTANYL CITR 100 MCG/2 ML ONE ×2 (18:58→20:08)
[2018-09-08 19:42] LABS: Urine Bacteria >50 /HPF (NONE SEEN); Urine Culture Reflex Order REFLEXED
[2018-09-08 19:49] LABS: Absolute Lymphocytes (CBC) 1.1 K/uL (0.7-4.9); Basophils % 0.3 % (0-1.3); Hematocrit 41.7 % (39.6-49.0); Lymphocytes % 14.2 % (15.3-44.8); RBC Red Blood Cell Count 4.49 M/uL (4.33-5.43)
[2018-09-08 20:01] LABS: Urine Blood 3+ (NEG); Urine Glucose NEGATIVE (NEG); Urine Protein 3+ (NEG); Urine pH 5.5 (5.0-7.0)
[2018-09-08] MEDS ORDERED: METHYLPREDNISOLONE 125 MG INJ ONE (20:09)
[2018-09-08] MEDS ORDERED: DIPHENHYDRAMINE 50 MG/ML VIAL ONE (20:09)
[2018-09-08] MEDS ORDERED: FAMOTIDINE 20 MG/2 ML VIAL IV ONE (20:09)
[2018-09-08 20:10] LABS: ALT/SGPT 28 U/L (12-78); AST/SGOT 17 U/L (15-37); Albumin 3.1 g/dL (3.4-5.0); Alkaline Phosphatase 121 U/L (45-117); BUN Blood Urea Nitrogen 36 mg/dL (7-18); Bicarbonate 18 mmol/L (21-32); Bilirubin Direct 0.3 mg/dL (0-0.2); Bilirubin Total 0.7 mg/dL (0.2-1.0); Glucose Level 140 mg/dL (74-106); Lipase 81 U/L (73-393); Magnesium 2.1 mg/dL (1.8-2.4); Potassium 4.1 mmol/L (3.5-5.1); Protein, Total 7.2 g/dL (6.4-8.2); Sodium Level 136 mmol/L (136-145); Troponin I < 0.02 ng/mL (0.0-0.045)
[2018-09-08] MEDS ORDERED: CEFTRIAXONE/SWI 1gm 1 GM/10 ML SYR ONE (20:14)
--- NOTE | 2018-09-08 20:46 | RAD REPORT ---
EXAM DESCRIPTION: CT - Abdomen Pelvis Wo Contrast - 09/08/2018 8:29 pm CLINICAL HISTORY: Abdominal pain. lower abdomen pain, large right inguinal hernia COMPARISON: <Comparisons> TECHNIQUE: CT imaging of the abdomen and pelvis was performed without contrast. Solid organ, bowel a nd vascular assessment is limited due to lack of IV and oral contrast. All CT scans are performed using dose optimization technique as appropriate and may include automated exposure control or mA/KV adjustment according to patient size. FINDINGS: The lower lung clark are clear.Cholelithiasis. The liver, spleen, pancreas, adrenal glands and kidneys are within normal limits for a limited non-co ntrast examination. No bowel obstruction, free air, free fluid or abscess. A large right inguinal hernia is present with multiple small bowel loops within the hernia sac. The fat within the hernia is slightly edematous. Th e appendix is not identified as a discrete structure, however, no secondary findings of appendicitis are identified. The osseous structures are within normal limits. IMPRESSION: Very large right inguinal hernia is present containing small bowel loops and fat. There is no bowel obstruction present. Cholelithiasis. A limited non-contrast examination was performed as detailed.
--- NOTE | 2018-09-08 22:12 | EDPHYS ---
Physician Documentation [facility] Name: Sanjeev Mcpherson Age: 48 yrs Sex: Male : 1970 Arrival Date: 09/08/2018 Time: 18:00 Bed 26 Private MD: Unknown, Unknown ED Physician David Alberts HPI: 09/08 18:45 This 48 yrs old Male presents to ER via EMS with complaints of Hernia. cp 18:45 The patient presents with right inguinal hernia. cp 18:45 Onset: The symptoms/episode began/occurred years ago, increased pain over past several cp days. Associated signs and symptoms: Pertinent positives: abdominal pain, fever, Pertinent negatives: constipation, diarrhea, vomiting. Severity of symptoms: in the emergency department the symptoms are unchanged, despite home interventions. Historical: - Allergies: 18:05 Adhesives; aj1 18:05 Anesthetics - Amide Type; aj1 18:05 Iodine; aj1 - Home Meds: 18:05 insulin [Active]; Simvastatin Oral [Active]; Lisinopril Oral [Active]; aj1 - PMHx: 18:05 Diabetes - NIDDM; Cancer; Hypertension; Hyperlipidemia; aj1 - Immunization history:: Flu vaccine is not up to date. - Social history:: Smoking status: Patient/guardian denies using tobacco. - Ebola Screening: : Patient denies travel to an Ebola-affected area in the 21 days before illness onset. ROS: 19:00 Constitutional: Positive for fever, Negative for body aches, chills, poor PO intake. cp 19:00 Eyes: Negative for injury, pain, redness, and discharge. cp 19:00 ENT: Negative for drainage from ear(s), ear pain, sore throat, difficulty swallowing, difficulty handling secretions. 19:00 Cardiovascular: Negative for chest pain, edema, palpitations. 19:00 Respiratory: Negative for cough, shortness of breath, wheezing. 19:00 Abdomen/GI: Positive for abdominal pain, Negative for vomiting, diarrhea, constipation, black/tarry stool, rectal bleeding. 19:00 : Negative for hematuria, flank pain. 19:00 Neuro: Negative for altered mental status, headache, weakness. 19:00 All other systems are negative. Exam: 19:05 Constitutional: The patient appears in no acute distress, alert, awake, cp non-diaphoretic, non-toxic, well developed, well nourished, uncomfortable. 19:05 Head/Face: Normocephalic, atraumatic. cp 19:05 Eyes: Periorbital structures: appear normal, Conjunctiva: normal, no exudate, no injection, Sclera: no appreciated abnormality, Lids and lashes: appear normal, bilaterally. 19:05 ENT: External ear(s): are unremarkable, Nose: is normal, Mouth: Lips: moist, Oral mucosa: pink and intact, moist, Posterior pharynx: Airway: no evidence of obstruction, patent. 19:05 Neck: ROM/movement: is normal, is supple, without pain, no range of motions limitations, no nuchal rigidity. 19:05 Chest/axilla: Inspection: normal, Palpation: is normal, no crepitus, no tenderness. 19:05 Cardiovascular: Rate: tachycardic, Rhythm: regular. 19:05 Respiratory: the patient does not display signs of respiratory distress, Respirations: normal, no use of accessory muscles, no retractions, no splinting, no tachypnea, labored breathing, is not present, Breath sounds: are clear throughout, no decreased breath sounds, no stridor, no wheezing. 19:05 Abdomen/GI: Inspection: abdomen appears normal, Bowel sounds: active, all quadrants, Palpation: soft, in all quadrants, rebound tenderness, is not appreciated, Hernia: noted in the right inguinal area and right femoral area, tenderness, that is moderate. 19:05 Back: pain, is absent, ROM is normal. 19:05 Skin: no rash present. 19:05 Neuro: Orientation: to person, place \T\ time. Mentation: is normal, Cerebellar function: is grossly normal, Motor: moves all fours, strength is normal. 21:05 ECG was reviewed by the Attending Physician. cp Vital Signs: 18:05 BP 110 / 54; Pulse 114; Resp 18; Temp 100.8(O); Pulse Ox 98% on R/A; Weight 72.57 kg aj1 (R); Height 5 ft. 0 in. (152.40 cm) (R); Pain 10/10; 19:22 BP 106 / 83; Pulse 98; Resp 18; Pulse Ox 99% on R/A; aj1 20:15 BP 124 / 88; Pulse 91; Resp 18; Pulse Ox 98% ; aj1 21:01 BP 136 / 88; Pulse 97; Resp 18; Pulse Ox 98% on R/A; aj1 22:44 BP 111 / 74; Pulse 99; Resp 16 S; Temp 102(A); Pulse Ox 96% on R/A; ca1 18:05 Body Mass Index 31.25 (72.57 kg, 152.40 cm) aj1 MDM: 18:10 Patient medically screened. 21:15 Data reviewed: vital signs, nurses notes, lab test result(s), radiologic studies, CT cp scan. 21:15 Counseling: I had a detailed discussion with the patient and/or guardian regarding: the cp historical points, exam findings, and any diagnostic results supporting the discharge/admit diagnosis, lab results, radiology results, the need for further work-up and treatment in the hospital. 21:30 Response to treatment: the patient's symptoms have markedly improved after treatment, cp VSS. Pain improved with meds, CT reviewed and negative for bowel obstruction. Hernia reduced manually. Will admit for continued treatment. 21:30 Physician consultation: Neville Whitaker DO was called at 21:30, was contacted at 21:30, regarding admission, to the medical/surgical unit. patient's condition. 09/08 18:39 Order name: Urine Microscopic Only; Complete Time: 19:54 cp 09/08 19:53 Interpretation: Normal except: UWBC >50; URBC 5-10; UBACT >50. cp 09/08 18:39 Order name: Basic Metabolic Panel; Complete Time: 20:14 09/08 20:14 Interpretation: Normal except: CL 108; CO2 18; GLUC 140; BUN 36; CRE 3.06; GFR 22. cp 09/08 18:39 Order name: CBC with Diff; Complete Time: 19:54 cp 09/08 18:39 Order name: Hepatic Function; Complete Time: 20:14 cp 09/08 18:39 Order name: Lipase; Complete Time: 20:14 cp 09/08 18:39 Order name: Troponin I; Complete Time: 20:14 cp 09/08 18:39 Order name: Magnesium; Complete Time: 20:14 cp 09/08 18:39 Order name: Lactate; Complete Time: 19:54 cp 09/08 18:39 Order name: Procalcitonin; Complete Time: 21:06 cp 09/08 19:46 Order name: Urine Culture EDMS 09/08 19:58 Order name: Urine Dipstick--Ancillary (enter results); Complete Time: 20:14 ar5 09/08 22:06 Order name: Blood Culture Adult (2) cp 09/08 18:39 Order name: Urine Dipstick-Ancillary (obtain specimen); Complete Time: 18:54 cp 09/08 18:39 Order name: IV Saline Lock; Complete Time: 19:20 cp 09/08 18:39 Order name: EKG; Complete Time: 18:42 cp 09/08 20:19 Order name: CT Abd/Pelvis - Without Contrast; Complete Time: 21:06 cp 09/08 22:06 Order name: Diet Ada 2000 Aayush; Complete Time: 22:08 cp 09/08 18:39 Order name: Labs collected and sent; Complete Time: 19:20 cp 09/08 18:39 Order name: EKG - Nurse/Tech; Complete Time: 21:31 cp EC:05 Rate is 97 beats/min. Rhythm is regular. MN interval is normal. QRS interval is cp prolonged at 102 msec. QT interval is normal. Interpreted by me. Reviewed by me. Administered Medications: 19:20 Drug: fentaNYL (PF) 25 mcg Route: IVP; Site: left forearm; aj1 19:20 Drug: NS 0.9% 1000 ml Route: IV; Rate: 1 bolus; Site: left forearm; aj1 19:59 Drug: fentaNYL (PF) 25 mcg Route: IVP; Site: left forearm; aj1 19:59 Drug: Rocephin - (cefTRIAXone) 1 grams Route: IVPB; Infused Over: 30 mins; Site: left aj1 forearm; 20:19 Not Given (Physician Discretion): SOLU-Medrol 125 mg IVP once cp 20:19 Not Given (Physician Discretion): Benadryl 25 mg IVP once cp 20:19 Not Given (Physician Discretion): Pepcid 20 mg IVP once cp 22:23 Drug: NS 0.9% 1000 ml Route: IV; Rate: 1 bolus; Site: left forearm; ca1 22:25 Drug: NS 0.9% 1000 ml Route: IV; Rate: 125 ml/hr; Site: left forearm; ca1 22:50 Drug: Tylenol 1000 mg Route: PO; ca1 23:03 Drug: Ibuprofen 800 mg Route: PO; ca1 Disposition: 09/09 06:31 Co-signature as Attending Physician, David Alberts MD I agree with the assessment and [facility] plan of care. Disposition: 09/08/18 22:10 Hospitalization ordered by Neville Whitaker for Inpatient Admission. Preliminary diagnosis are Urinary tract infection, site not specified, Unilateral inguinal hernia, without obstruction or gangrene, Unspecified kidney failure. - Bed requested for Telemetry/MedSurg (Inpatient). - Status is Inpatient Admission. ca1 - Condition is Stable. - Problem is new. - Symptoms have improved. UTI on Admission? Yes Signatures: Dispatcher [employer] EDAL Nicky Burton RN RN ajEsperanza Glass RN David Corbett MD MD cha Page, Corey, PA PA cp Acob, ДМИТРИЙ Patel RN ca1 Corrections: (The following items were deleted from the chart) 09/08 20:13 18:42 Creatinine for Radiology+C.LAB.BRZ ordered. [facility] EDAL 20:22 19:36 Abdomen Pelvis W Con+CT.RAD.BRZ ordered. [facility] EDAL 22:33 22:10 Hospitalization Ordered by Neville Whitaker DO for Inpatient Admission. Preliminary diagnosis is Urinary tract infection, site not specified; Unilateral inguinal hernia, without obstruction or gangrene; Unspecified kidney failure. Bed requested for Telemetry/MedSurg (Inpatient). Status is Inpatient Admission. Condition is Stable. Problem is new. Symptoms have improved. UTI on Admission? Yes. 23:10 22:33 09/08/2018 22:10 Hospitalization Ordered by Neville Whitaker DO for Inpatient ca1 Admission. Preliminary diagnosis is Urinary tract infection, site not specified; Unilateral inguinal hernia, without obstruction or gangrene; Unspecified kidney failure. Bed requested for Telemetry/MedSurg (Inpatient). Status is Inpatient Admission. Condition is Stable. Problem is new. Symptoms have improved. UTI on Admission? Yes. mw
--- NOTE | 2018-09-08 22:12 | ER ---
Nurse's Notes [facility] Name: Sanjeev Mcpherson Age: 48 yrs Sex: Male : 1970 Arrival Date: 09/08/2018 Time: 18:00 Bed 26 Private MD: Unknown, Unknown Diagnosis: Urinary tract infection, site not specified;Unilateral inguinal hernia, without obstruction or gangrene;Unspecified kidney failure Presentation: 09/08 18:02 Presenting complaint: Patient states: Pain the radiates from his groin to his abdomen aj1 for the past 2 days, patient reports that he has a hernia that he has been seing Dr. Tobias for and that's where his pain is. Denies N/V/D. Reports fever. Transition of care: patient was not received from another setting of care. Onset of symptoms was September 06, 2018. Risk Assessment: Do you want to hurt yourself or someone else? Patient reports no desire to harm self or others. Initial Sepsis Screen: Does the patient meet any 2 criteria? HR > 90 bpm. No. Patient's initial sepsis screen is negative. Does the patient have a suspected source of infection? Yes: Acute abdominal pain. Care prior to arrival: None. 18:02 Method Of Arrival: EMS: [facility] aj1 18:02 Acuity: JULIANNE 3 aj1 Triage Assessment: 18:05 General: Appears uncomfortable, Behavior is cooperative, restless. Pain: Complains of aj1 pain in abdomen and pelvis Pain does not radiate. Pain currently is 10 out of 10 on a pain scale. Historical: - Allergies: 18:05 Adhesives; aj1 18:05 Anesthetics - Amide Type; aj1 18:05 Iodine; aj1 - Home Meds: 18:05 insulin [Active]; Simvastatin Oral [Active]; Lisinopril Oral [Active]; aj1 - PMHx: 18:05 Diabetes - NIDDM; Cancer; Hypertension; Hyperlipidemia; aj1 - Immunization history:: Flu vaccine is not up to date. - Social history:: Smoking status: Patient/guardian denies using tobacco. - Ebola Screening: : Patient denies travel to an Ebola-affected area in the 21 days before illness onset. Screenin:08 Abuse screen: Denies threats or abuse. Denies injuries from another. Nutritional aj1 screening: No deficits noted. Tuberculosis screening: No symptoms or risk factors identified. 22:33 Fall Risk No fall in past 12 months (0 pts). IV access (20 points). ca1 Assessment: 18:08 General: Appears in no apparent distress. uncomfortable, Behavior is restless. Pain: aj1 Complains of pain in pelvis and abdomen Pain does not radiate. Pain currently is 10 out of 10 on a pain scale. Neuro: Level of Consciousness is awake, alert, obeys commands, Oriented to person, place, time, situation. Cardiovascular: Patient's skin is warm and dry. Respiratory: Airway is patent Respiratory effort is even, unlabored, Respiratory pattern is regular, symmetrical. GI: Abdomen is round Bowel sounds present X 4 quads. Abd is soft X 4 quads Abdomen is tender to palpation X 4 quads. : No signs and/or symptoms were reported regarding the genitourinary system. EENT: No signs and/or symptoms were reported regarding the EENT system. Derm: No signs and/or symptoms reported regarding the dermatologic system. Skin is pink, warm \T\ dry. normal. Musculoskeletal: No signs and/or symptoms reported regarding the musculoskeletal system. Circulation, motion, and sensation intact. 19:23 Reassessment: Patient appears in no apparent distress at this time. No changes from aj1 previously documented assessment. Patient and/or family updated on plan of care and expected duration. Pain level reassessed. Patient is alert, oriented x 3, equal unlabored respirations, skin warm/dry/pink. 19:31 Reassessment: Dr. Alberts and NEGRITO Mike at bedside to attempt to reduce patient's aj1 hernia. 19:40 Reassessment: Hold EKG for now per NEGRITO Fry. aj1 20:30 Reassessment: Patient appears in no apparent distress at this time. No changes from aj1 previously documented assessment. Patient and/or family updated on plan of care and expected duration. Pain level reassessed. Patient is alert, oriented x 3, equal unlabored respirations, skin warm/dry/pink. 21:00 Reassessment: Patient and/or family updated on plan of care and expected duration. Pain aj1 level reassessed. Patient is alert, oriented x 3, equal unlabored respirations, skin warm/dry/pink. Patient appears comfortable at this time, listening to music and singing along. 22:39 Reassessment: Patient appears in no apparent distress at this time. Patient is alert, ca1 oriented x 3, equal unlabored respirations, skin warm/dry/pink. Attempted to do 2nd set of cultures. Unsuccessful. Pt refused any more needles. Notified provider. Called lab to cancel 2nd set of cultures. Vital Signs: 18:05 BP 110 / 54; Pulse 114; Resp 18; Temp 100.8(O); Pulse Ox 98% on R/A; Weight 72.57 kg aj1 (R); Height 5 ft. 0 in. (152.40 cm) (R); Pain 10/10; 19:22 BP 106 / 83; Pulse 98; Resp 18; Pulse Ox 99% on R/A; aj1 20:15 BP 124 / 88; Pulse 91; Resp 18; Pulse Ox 98% ; aj1 21:01 BP 136 / 88; Pulse 97; Resp 18; Pulse Ox 98% on R/A; aj1 22:44 BP 111 / 74; Pulse 99; Resp 16 S; Temp 102(A); Pulse Ox 96% on R/A; ca1 18:05 Body Mass Index 31.25 (72.57 kg, 152.40 cm) aj1 ED Course: 18:00 Patient arrived in ED. ag5 18:00 Unknown, Unknown is Private Physician. ag5 18:03 Triage completed. aj1 18:05 Arm band placed on. aj1 18:08 Patient has correct armband on for positive identification. aj1 18:08 No provider procedures requiring assistance completed. aj1 18:10 David Parmar PA is PHCP. cp 18:10 David Alberts MD is Attending Physician. cp 18:55 Nicky Burton, ДМИТРИЙ is Primary Nurse. aj1 19:05 Missed attempt(s): 22 gauge in left forearm. lt1 19:10 Missed attempt(s): 20 gauge in left antecubital area. lt1 19:24 Initial lab(s) drawn, by me, sent to lab. Inserted saline lock: 20 gauge in left aa1 forearm, using aseptic technique. Blood collected. 19:37 Radiology exam delayed due to lab results not completed at this time. (BUN/Creatinine). vm2 20:34 CT Abd/Pelvis - Without Contrast In Process Unspecified. EDMS 22:08 Neville Whitaker DO is Hospitalizing Provider. cp 23:08 Patient admitted, IV remains in place. ca1 Administered Medications: 19:20 Drug: fentaNYL (PF) 25 mcg Route: IVP; Site: left forearm; aj1 19:20 Drug: NS 0.9% 1000 ml Route: IV; Rate: 1 bolus; Site: left forearm; aj1 19:59 Drug: fentaNYL (PF) 25 mcg Route: IVP; Site: left forearm; aj1 19:59 Drug: Rocephin - (cefTRIAXone) 1 grams Route: IVPB; Infused Over: 30 mins; Site: left aj1 forearm; 20:19 Not Given (Physician Discretion): SOLU-Medrol 125 mg IVP once cp 20:19 Not Given (Physician Discretion): Benadryl 25 mg IVP once cp 20:19 Not Given (Physician Discretion): Pepcid 20 mg IVP once cp 22:23 Drug: NS 0.9% 1000 ml Route: IV; Rate: 1 bolus; Site: left forearm; ca1 22:25 Drug: NS 0.9% 1000 ml Route: IV; Rate: 125 ml/hr; Site: left forearm; ca1 22:50 Drug: Tylenol 1000 mg Route: PO; ca1 23:03 Drug: Ibuprofen 800 mg Route: PO; ca1 Outcome: 22:10 Decision to Hospitalize by Provider. cp 23:08 Admitted to Med/surg accompanied by tech, via wheelchair, room 204, with chart, Other ca1 with IV fluids Report called to ДМИТРИЙ Oneal 23:08 Condition: stable 23:08 Instructed on the need for admit. 23:10 Patient left the ED. ca1 Signatures: Dispatcher [employer] EDNH Nicky Burton RN RN aj1 Maki Zuluaga RN RN aa1 David Parmar PA PA Lynn Kingsley 2 Amanda Shah RN RN ca1 Dionne Cross Leah lt1 Corrections: (The following items were deleted from the chart) 18:07 18:02 Initial Sepsis Screen: Does the patient meet any 2 criteria? HR > 90 bpm. No. aj1 Patient's initial sepsis screen is negative. Does the patient have a suspected source of infection? Yes: Acute abdominal pain aj1 20:08 20:06 Missed attempt(s): 22 gauge in left forearm. lt1 lt1
--- NOTE | 2018-09-08 22:15 | P.HP ---
Certification for Inpatient Patient admitted to: Inpatient With expected LOS: >2 Midnights Patient will require the following post-hospital care: None Practitioner: I am a practitioner with admitting privileges, knowledge of patient current condition, hospital course, and medical plan of care. Services: Services provided to patient in accordance with Admission requirements found in Title 42 Section 412.3 of the Code of Federal Regulations Patient History Date of Service: 09/08/18 Primary Care Provider: Dr. Neal; Surgery-Dr. Tobias Reason for admission: Right inguinal pain History of Present Illness: 48-year-old male presented to the emergency room with right inguinal pain. Patient with history of diabetes mellitus type 2-insulin dependent, hypertension, hyperlipidemia, chronic renal disease, small-cell lung cancer and chronic right inguinal hernia. Patient helped his mother this past weekend. She apparently fell. She had to lift her up. In the process he had reported some inguinal pain. Inguinal pain has been getting worse. He reported some fever. No significant chills. No pain with urination. He also reported some right flank pain. In the ER patient evaluated. Patient found to have a fever of 100.8. White count 8.0, hemoglobin 14.1, platelet count of 187. Urinalysis showed bacteria. Pro calcitonin elevated at 4.9. Lactic acid normal. Troponin normal. Sodium 136, potassium 4.1, BUN of 36, creatinine 3.06 with a GFR of 22. Glucose within normal range. CT scan showed a liver, spleen, kidneys within normal range. No bowel obstruction or free air noted. Large right inguinal hernia noted with multiple small bowel loops within the hernia sac. Fat within the hernia is slightly edematous. No obstruction or incarceration noted. Patient was admitted for further treatment. When I saw the patient ER, pain improved. He did report some right flank pain more than the right inguinal pain. Patient was able to stand and urinate. Patient appeared stable at this time. Patient admits that he has been to surgery to evaluate his chronic inguinal hernia. He has not had surgery for this issue. Allergies Anesthetics - Amide Type Allergy (Verified 07/05/18 16:55) Itching/Hives/Rash iodine Allergy (Verified 07/05/18 16:55) Itching/Hives/Rash adhesive Adverse Reaction (Verified 07/05/18 16:55) Itching/Hives/Rash Home medications list reviewed: Yes Home Medications: Atorvastatin Calcium [Lipitor] 20 mg PO BEDTIME #30 tab 07/07/18 Sitagliptin Phosphate [Januvia*] 50 mg PO DAILY #30 tab 07/07/18 - Past Medical/Surgical History Diabetic: Yes -: Small-cell lung cancer with brain metastasis -: History of brain surgery -: Chronic right inguinal hernia -: Diabetes mellitus type 2, insulin-dependent -: Hypertension -: Hyperlipidemia -: Chronic renal disease, stage IV -: Feeding Tube -: IVC Filter -: Tracheostomy Psychosocial/ Personal History: Patient is . He has 4 children - Family History Family History: Reviewed- Non-Contributory - Social History Smoking Status: Never smoker Alcohol use: No CD- Drugs: No Caffeine use: No Place of Residence: Home Review of Systems General: Fever, As per HPI Eyes: Unremarkable ENT: Unremarkable Respiratory: Unremarkable Cardiovascular: Unremarkable Gastrointestinal: Abdominal Pain, As per HPI Genitourinary: As per HPI Musculoskeletal: Unremarkable Integumentary: Unremarkable Neurological: Unremarkable Lymphatics: Unremarkable Physical Examination - Physical Exam General: Alert, In no apparent distress, Oriented x3, Cooperative HEENT: Atraumatic, Normocephalic, PERRLA, Mucous membr. moist/pink Neck: Supple, No Thyromegaly Respiratory: Clear to auscultation bilaterally, Normal air movement Cardiovascular: Normal pulses, Regular rate/rhythm Gastrointestinal: Normal bowel sounds, Soft and benign, Non-distended, Tenderness (Right Flank pain noted) Musculoskeletal: No erythema, No tenderness, No warmth Integumentary: No erythema, No warmth, No cyanosis Neurological: Normal speech, Normal strength at 5/5 x4 extr, Normal tone, Normal affect Urinary: Other (Right inguinal hernia noted) External genitalia: Other (Right inguinal hernia noted No significant erythema. Hernia was able to be palpated. Pain seems to be out of proportion.) - Studies Laboratory Data (last 24 hrs) 09/08/18 19:20: WBC 8.0, Hgb 14.1, Hct 41.7, Plt Count 187 09/08/18 19:20: Sodium 136, Potassium 4.1, BUN 36 H, Creatinine 3.06 H, Glucose 140 H, Magnesium 2.1, Total Bilirubin 0.7, AST 17, ALT 28, Alkaline Phosphatase 121 H, Troponin I < 0.02, Lipase 81 09/08/18 18:39: Creatinine Cancelled Assessment and Plan - Plan Impression: Right flank pain secondary to UTI with possible pyelonephritis complicated with chronic right inguinal hernia with inguinal pain Acute on chronic renal disease stage IV Diabetes mellitus type 2, insulin-dependent Hypertension Hyperlipidemia Small-cell lung cancer with history of mets and brain surgery Plan: Right flank pain secondary to UTI with possible pyelonephritis complicated with chronic right inguinal hernia with inguinal pain: Patient will be admitted for treatment. Will obtain blood and urine cultures. Patient started on IV Rocephin. Will continue with IV fluids. Will monitor closely. Case discussed with surgery who has seen the patient as an outpatient. Surgery concerned that the pain made be related to secondary gain. Will monitor pain indication use. Will check urine drug screen. Will provide options for pain. Will have surgery reassess patient. Will check renal ultrasound to evaluate for pyelonephritis. Pro calcitonin elevated but lactic acid within normal range. Will continue to reassess. Will monitor closely. Anticipate discharge in the next 2-3 days pending clinical improvement and urine culture. Acute on chronic renal disease stage IV: Will continue with IV fluids. Will monitor closely. Will consult Nephrology to further assess. Check renal ultrasound. Will adjust medication accordingly. Diabetes mellitus type 2, insulin-dependent: Will provide basal insulin. Will also monitor Accu-Cheks and provide sliding scale. Hypertension: Restart lisinopril low dose. Hyperlipidemia: Continue with home medication-Zocor. Small-cell lung cancer with history of mets and brain surgery: This has been followed by pulmonology and Oncology. Discharge Plan: Home Plan to discharge in: 72 Hours - Advance Directives Does patient have a Living Will: No Does patient have a Durable POA for Healthcare: No - Code Status/Comfort Care Code Status Assessed: Yes (Patient is full code) Time Spent Managing Pts Care (In Minutes): 55
[2018-09-08] MEDS ORDERED: NA CHLORIDE 0.9% 2,000 ML ONE (22:41)
[2018-09-08] MEDS ORDERED: IBUPROFEN 400 MG TAB ONE (23:04)
[2018-09-08] MEDS ORDERED: ACETAMINOPHEN 500 MG TAB ONE (23:04)
[2018-09-08] MEDS ORDERED: HYDRALAZINE HCL 20 MG/ML VIAL IV PRN (23:30)
[2018-09-08] MEDS ORDERED: MORPHINE 2 MG/ML SYR IV PRN (23:30)
[2018-09-08] MEDS ORDERED: GLUCAGON 1 MG/VIAL IM PRN (23:30)
[2018-09-08] MEDS ORDERED: ONDANSETRON 4 MG/2 ML VIAL IV PRN (23:30)
[2018-09-08] MEDS ORDERED: TRAMADOL HCL 50 MG TAB PO PRN (23:30)
[2018-09-08] MEDS ORDERED: D50W 25 GM/50 ML SYRINGE IV PRN (23:30)
[2018-09-08] MEDS ORDERED: HYDROCODONE/APAP 7.5/325 MG TAB PO PRN (23:30)
[2018-09-08] MEDS ORDERED: ACETAMINOPHEN 500 MG TAB PO PRN (23:30)
[2018-09-09 00:25] VITALS: BMI 30.9
[2018-09-09] MEDS: NA CHLORIDE 0.9% 1,000 ML IV SCH ×2 (01:13→09:30)
[2018-09-09 05:39] VITALS: O2SAT 99
[2018-09-09] MEDS: INSULIN -REGULAR HUMAN 50 UNIT/0.5 ML ML SQ SCH ×3 (07:30→16:30)
[2018-09-09] MEDS ORDERED: CEFTRIAXONE/SWI 1gm 1 GM/10 ML SYR IV SCH (09:00)
[2018-09-09] MEDS ORDERED: FAMOTIDINE 20 MG TAB PO SCH (09:00)
[2018-09-09] MEDS ORDERED: CEFTRIAXONE 1 GM/NS 50 ML 1 GM/50 ML BAG IV SCH (09:00)
[2018-09-09] MEDS ORDERED: ENOXAPARIN 40 MG/0.4 ML SQ SCH (09:00)
[2018-09-09] MEDS ORDERED: INSULIN GLARGINE 100 UNITS/ML SQ SCH (09:00)
[2018-09-09 09:19] LABS: Absolute Lymphocytes (CBC) 0.6 K/uL (0.7-4.9); Basophils % 0.5 % (0-1.3); Hematocrit 42.5 % (39.6-49.0); Lymphocytes % 11.9 % (15.3-44.8); RBC Red Blood Cell Count 4.57 M/uL (4.33-5.43)
--- NOTE | 2018-09-09 09:48 | RAD REPORT ---
EXAM DESCRIPTION: US - Renal Ultrasound-Complete - 09/09/2018 9:38 am CLINICAL HISTORY: Right flank pain/UTI, Hx CRD COMPARISON: Renal Ultrasound-Complete dated 07/06/2018 FINDINGS: Both kidneys are normal in size, shape and echotexture. The right kidney measures 9.2 x 5.2 x 4.9 cm. No hydronephrosis, focal mass or perinephric fluid. The left kidney measures 10.3 x 5.7 x 4.9 cm. No hydronephrosis, focal mass or perinephric fluid. 15 x 12 mm left renal cyst. The urinary bladder is incompletely distended without gross abnormality seen. IMPRESSION: Small left renal cyst, otherwise unremarkable study.
[2018-09-09 09:55] LABS: Magnesium 2.1 mg/dL (1.8-2.4); Potassium 4.3 mmol/L (3.5-5.1)
--- NOTE | 2018-09-09 10:39 | EKG ---
Test Date: 2018-09-08 Test Time: 20:58:56 Proj Engineer: PATEL MEASUREMENT RESULTS: Intervals: Rate: 97 OR: 120 QRSD: 102 QT: 326 QTc: 414 [place]: P: -23 OR: 120 QRS: -45 T: 38 INTERPRETIVE STATEMENTS: Normal sinus rhythm Left anterior fascicular block Abnormal ECG Compared to ECG 07/05/2018 12:14:04 Left anterior fascicular block now present Electronically Signed On 09-09-18 10:38:13 CDT by Alvaro Bobby
[2018-09-09] MEDS: METRONIDAZOLE 500mg IVPB 500 MG/100 ML BAG IV SCH ×2 (10:48→16:59)
[2018-09-09] MEDS ORDERED: NA CHLORIDE 0.9% 1,000 ML IV ONE (14:29)
[2018-09-09] MEDS ORDERED: NA CHLORIDE 0.9% 1,000 ML IV SCH (15:00)
--- NOTE | 2018-09-09 15:25 | P.PN ---
Subjective Date of Service: 09/09/18 Primary Care Provider: Dr. Neal; Surgery-Dr. Tobias Chief Complaint: Right inguinal pain Patient seen and examined at bedside with RN. Chart reviewed. Case discussed with general surgery at this time. Patient has no complaints to offer. Currently awaiting urine culture results at this time. Review of Systems 10-point ROS is otherwise unremarkable Physical Examination - Vital Signs Temperature: 98.2 F Blood Pressure: 139/98 Pulse: 94 Respirations: 18 Pulse Ox (%): 97 - Physical Exam General: Alert, In no apparent distress HEENT: Atraumatic, PERRLA, EOMI Neck: Supple, JVD not distended Respiratory: Clear to auscultation bilaterally, Normal air movement Cardiovascular: Regular rate/rhythm, Normal S1 S2 Gastrointestinal: Normal bowel sounds, No tenderness Musculoskeletal: No tenderness Integumentary: No rashes Neurological: Normal speech, Normal tone, Normal affect Lymphatics: No axilla or inguinal lymphadenopathy - Studies Laboratory Data (last 24 hrs) 09/08/18 19:20: WBC 8.0, Hgb 14.1, Hct 41.7, Plt Count 187 09/08/18 19:20: Sodium 136, Potassium 4.1, BUN 36 H, Creatinine 3.06 H, Glucose 140 H, Magnesium 2.1, Total Bilirubin 0.7, AST 17, ALT 28, Alkaline Phosphatase 121 H, Troponin I < 0.02, Lipase 81 09/08/18 18:39: Creatinine Cancelled Medications List Reviewed: Yes Assessment And Plan - Current Problems (Diagnosis) (1) Urinary tract infection Current Visit: Yes Status: Acute Plan: Acute cystitis without hematuria -UA with urinary tract infection -culture is pending at this time however growing Gram negative rods -currently on IV Rocephin will continue that here in the hospital Qualifiers: Urinary tract infection type: acute cystitis Hematuria presence: without hematuria Qualified Code(s): N30.00 - Acute cystitis without hematuria (2) Diabetes Current Visit: Yes Status: Chronic Qualifiers: Diabetes mellitus type: type 2 Diabetes mellitus mcc insulin use: without mcc use Diabetes mellitus complication status: without complication Qualified Code(s): E11.9 - Type 2 diabetes mellitus without complications (3) Inguinal hernia Current Visit: Yes Status: Chronic Plan: Chronic recurrent inguinal hernia -general surgery consulted. Appreciate recommendation -outpatient surgery after patient has UTI has been managed Qualifiers: Obstruction and gangrene presence: without obstruction or gangrene Laterality: unilateral Recurrence: recurrent Qualified Code(s): K40.91 - Unilateral inguinal hernia, without obstruction or gangrene, recurrent (4) Small cell lung cancer Current Visit: No Status: Chronic Plan: Patient with history of small cell carcinoma -patient used to get treatment for small cell carcinoma in [facility] however due to losing insurance he has not been able to continue getting the treatment. Has received insurance now and will be following up with Dr. carson office here locally does have an appointment and workup pending - Plan Pending clinical improvement at this time Discharge Plan: Home Plan to discharge in: Greater than 2 days - Code Status/Comfort Care Code Status Assessed: Yes Critical Care: No
[2018-09-09 18:08] LABS: Urine Appearance CLOUDY; Urine Bilirubin NEGATIVE (NEG); Urine Blood 3+ (NEG); Urine Color YELLOW; Urine Glucose TRACE (NEG); Urine Protein 2+ (NEG); Urine pH 5.5 (5.0-7.0)
[2018-09-09 18:09] LABS: Urine Microscopic Reflex ORDER UMIC
[2018-09-09 18:20] LABS: Barbiturates NEGATIVE (NEGATIVE); Benzodiazepines NEGATIVE (NEGATIVE); Cocaine NEGATIVE (NEGATIVE); METHAMPHETAM NEGATIVE (NEGATIVE); Methadone NEGATIVE (NEGATIVE); Opiates NEGATIVE (NEGATIVE); Phencyclidine NEGATIVE (NEGATIVE); THC Cannibis POSITIVE (NEGATIVE)
[2018-09-09 18:24] LABS: Urine Bacteria 20-50 /HPF (NONE SEEN); Urine Culture Reflex Order REFLEXED; Urine RBC 20-50 /HPF (NONE SEEN)
--- NOTE | 2018-09-09 19:25 | CON ---
Date of Consultation: 09/09/2018 Reason For Consultation: Elevated BUN and creatinine, fluid management. History Of Present Illness: This is a pleasant, known to me 48-year-old gentleman with significant p ast medical history of diabetes complicated with neuropathy and nephropathy, baseline creatinine is 2 with GFR around 31, hypertension, hyperlipidemia, lung CA according to him, small cell cancer, statu s post chemo and radiation, complicated with metastasis, patient was in his regular state of health. Patient recently admitted to the hospital back in June. The patient came to the hospital complaining with inguinal pain after lifting heavy stuff of primary workup found to have fever, elevated BUN, an d creatinine with creatinine of 3 and GFR of 22, for that reason been admitted. Patient has been com plaining of right flank pain, nausea, and vomiting with fever. Patient denied taking any nonsteroida l. No IV contrast. No recent change in his medication. Over the night, patient was started on hydr ation. He is slightly feeling better but still sick. Patient evaluated by Surgery for the inguinal hernia. They recommended for outpatient followup. Past Medical History: Include; 1.Small-cell lung CA with brain mets. 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 3.Hypertension. 4.Nephrosclerosis, status post acute kidney injury. Baseline creatinine 2, GFR of 30. 5.Hypertension. 6.Hyperlipidemia. 7.DVT with IVC filter. Past Surgical History: Include tracheostomy, lung surgery. Home Medication: Include atorvastatin and Januvia. Family History: Positive for hypertension. Social History: Denies smoking. Denies drinking. Denies drugs abuse. Review of Systems: Head and Neck: No red eye. No ear pain. GI: Has abdominal pain, has dysuria. : No polyuria, has dysuria. Gastroenterology Nurse: Not applicable. Respiratory: Has cough. GI: Has nausea and vomiting. Cardiovascular: No chest pain. Endocrine: No polydipsia. Skin: No rash. Physical Examination: Vital Signs: When I saw the patient, patient lying in bed. Blood pressure 117/78, pulse of 77. Chest: Clear to auscultation. Heart: S1, S2. Regular. Abdomen: Soft. Tenderness on the right lower quadrant. Mild rebound. Extremities: No edema. Laboratory Data: WBC 5.3, H and H 14.3/42.5, platelet 145. Sodium of 140, potassium 4.3, bicarb 20, BUN 41, creatinine of 3, GFR of 22, calcium 8.1, magnesium 2.1. On previous admission, patient rodriguez min D25 is 47. TSH 0.8 PTH 171. Urinalysis; specific gravity of 1.020 more than 50 wbc, PC ratio of 1.1. Renal ultrasound showing 9.2/10.3 left renal cyst. Current Medications: The patient on its include; 1.Ceftriaxone. 2.Metronidazole. 3.Lovenox. 4.Tylenol. 5.Pepcid. 6.Insulin. 7.IV fluid. Physical Examination: Vital Signs: Blood pressure 117/78, pulse of 77. Chest: Clear to auscultation. Heart: S1, S2, regular. Abdomen: Soft, tenderness. Extremities: No edema. Neurological: Alert and oriented x3. No focal. Assessment And Plan: 1.Acute kidney injury secondary to prerenal, secondary to gastrointestinal loss, secondary to the na usea and vomiting. Look to me on the dry side. I can start the patient on IV hydration. We will keren eliot the patient with 1 L. Then, we will continue on normal 75 per hour, and we will follow up the timur more. 2.Hypertension, currently hypotension. Keep holding all blood pressure medication. 3.Urinary tract infection. Continue current antibiotic. We will follow up culture. 4.Inguinal hernia as by Surgery. 5.Diabetes, as by the primary. Thank you Dr. Harris for allowing us to participate in the care of your patient. BILL Voice ID: [id number] Report ID: [id number]
[2018-09-09] MEDS ORDERED: TRAMADOL HCL 50 MG TAB PO PRN (19:33)
[2018-09-09 20:08] VITALS: BP 121/77; TEMP 99.1
[2018-09-09] MEDS ORDERED: LACTOBACILLUS/ACIDOPHILUS TAB PO SCH (21:00)
[2018-09-09] MEDS ORDERED: ATORVASTATIN 20 MG TAB PO SCH (21:00)
--- NOTE | 2018-09-09 22:04 | CON ---
Date of Consultation: 09/09/2018 Diagnosis: Inguinal hernia, also UTI. History Of Present Illness: This is a case of a 48-year-old patient, comes to us and admitted for UT I, also found to have a chronic hernia. He said he has been working on it for a long time. He has i t for more than 2 years. The patient was admitted also for renal insufficiency and a surgical consul t was obtained for a right inguinal hernia repair. The patient has a history of small cell lung canc er. He claimed that he had some surgery done, but at this moment, we do not know exactly what surger y was done. Also, he said he has metastatic disease. We are requesting some clarification from his main doctor to see what he means by that since that may affect the outcome of this surgery. The jonathan ent is comfortable at this moment. No abdominal pain. He has some pain when he was lifting his mom several days ago. He states some dysuria. No hematuria. No hematochezia. No melena. Allergies: IODINE. Past Medical History: Small cell lung cancer with brain metastasis, chronic right inguinal hernia an d diabetes, hypertension, chronic renal disease. Past Surgical History: Inferior vena cava filter, tracheostomies, brain surgery. Social History: He does not smoke. He does not drink alcohol. Family History: Noncontributory. Review of Systems: Ten points otherwise unremarkable. Physical Examination: General: Patient is awake and alert. HEENT: Pupils are equal and reactive, anicteric. Neck: Supple. Chest: Clear. Abdomen: Soft and depressible. No guarding or rebound. No peritoneal signs. Patient has a right i nguinal hernia present. No appendicitis seen. No bowel obstruction. No free air. No free fluid. No abscess. No swelling of intestines. Assessment: This 48-year-old patient with multiple problems including cancer that he says he has bee n treated, but we do not have the complete evidence of that. He has been having metastatic disease a ctively. He is looking forward to trying to get his medication and his treatment back in order since he has not followed a long time for his lung cancer. He is currently treated for the urinary tract infection and clear that infection. We must have some information about his medical issues, so we ca n discuss and he can make an informed consent and the pros and cons of putting him under anesthesia a nd then fixing the hernia. The benefits, alternatives, and risks of hernia were fully explained, whi ch include but are not limited to infection, bleeding, damage to adjacent structures, anesthesia comp lication, recurrence, PR, and even . He is going to go home, treat the UTI, and he promises roxann t he is going to come back to my office. I will discuss the pros and cons. He is going to try to fi nd some records about his previous cancer that he claims came back and he is in the process of being treated. Once again, I have no documentation on that. ANNA/ANYA Voice ID: [id number] Report ID: [id number]
--- NOTE | 2018-09-09 23:11 | P.PN ---
Subjective Date of Service: 09/09/18 Primary Care Provider: Dr. Neal; Surgery-Dr. Tobias Chief Complaint: Right inguinal pain Subjective: Other (Patient was requesting IV pain medication. Patient has drug- seeking behavior. IV pain medication was stopped by attending physician.) Physical Examination - Vital Signs Temperature: 99.1 F Blood Pressure: 121/77 Pulse: 106 Respirations: 19 Pulse Ox (%): 96 - Physical Exam Other Physical/Emotional Findings: I was not able to evaluate patient as the patient left against medical advice. Patient was wanting IV pain medication. - Studies Medications List Reviewed: Yes Assessment & Plan Discharge Plan: Other (Patient left against medical advice) Physician Review Additional Text: Patient demanded IV pain medication as mentioned by nurse. IV pain medication was discontinued by attending physician earlier. Patient has drug-seeking behavior. Oral medication was provided. This was not sufficient. Patient left against medical advice. Patient with UTI. I will have nurses follow up on the urine culture as the patient will need to be treated as an outpatient. Antibiotics can be sent tomorrow to his pharmacy once results have finalized. Time Spent Managing Pts Care (In Minutes): 5
[2018-09-10] MEDS ORDERED: ENOXAPARIN 30 MG/0.3 ML SQ SCH (09:00)
== END 2018-09-09 20:29 | disposition left against medical advice (07) | DRG 690 ==
LOC: ER 17:46 → ERHOLD 22:33 → 2ND 23:03
PROVIDERS: ADMIT Family Medicine; ATTEND Family Medicine
DX: N30.00 Acute cystitis without hematuria (principal); C34.90 Malignant neoplasm of unspecified part of unspecified bronchus or lung; C79.9 Secondary malignant neoplasm of unspecified site; N17.9 Acute kidney failure, unspecified; N18.4 Chronic kidney disease, stage 4 (severe); K40.90 Unilateral inguinal hernia, without obstruction or gangrene, not specified as recurrent; Z76.5 Malingerer [conscious simulation]; I12.9 Hypertensive chronic kidney disease with stage 1 through stage 4 chronic kidney disease, or unspecified chronic kidney disease; E11.22 Type 2 diabetes mellitus with diabetic chronic kidney disease; E11.40 Type 2 diabetes mellitus with diabetic neuropathy, unspecified; E11.21 Type 2 diabetes mellitus with diabetic nephropathy; E78.5 Hyperlipidemia, unspecified; Z79.4 Long term (current) use of insulin
CPT/HCPCS: 36415; 74176; 76770; 80048; 80076; 80307; 81003; 81015; 82962; 83605; 83690; 83735; 84145; 84484; 85025; 87040; 87077; 87086; 87088; 87186; 87205; 87493; 93005; 96374; 96375; 99285; J0696; J1650; J2270; J2930; J3010; J7030

== ENCOUNTER 2019-01-07 12:03 | Emergency (ER) | payer OTHER ==
--- OUTSIDE RECORDS SUMMARY | 2019-01-07 12:06 | XMS REPORT ---
:1970 Demographics Address [address] [place] [address] Preferred Language Unknown Marital Status Unknown Sabianist Affiliation Unknown Race Unknown Additional Race(s) Unavailable Ethnic Group Unknown [facility] [address] [place] [address] Care Team Providers Name Role Phone Unavailable [...] Indication: ED PATIENTUA RFLX MICR CULT IF [id number] 16:32:00 Test Item Value Reference Range [...] NG/ML are obtained. - CT HEAD/BRAIN W/O [id number] 15:20:00 FAX: Colleen Mckenzie MD [phone] [place]: St: REG Name: MICHELLE FISHER [facility] : 1970 Age/S: 48/M [address] Unit: [id number] Loc: [place] [address] Phys: Colleen Mckenzie MD Acct: [id number] Dis Date: Status: REG ER PHONE #: [phone] Exam Date: 06/05/2018 1510 FAX #: [phone] Reason: june, h/o brain ca EXAMS: CPT CODE: [id number] CT HEAD/BRAIN W/O CONT 96851 Location: T18 CT head, 06/05/18 COMPARISON EXAMS:None of the brain TECHNIQUE: CT examination of the brain was performed without contrast on a helical scanner. Scanning conducted from skull base to vertex in the axial plane acquiring contiguous 5mm slice thickness . The examination was performed on a formerly [facility] helical CT scanner utilizing low-dose radiation [...] Signed Report (CONTINUED) FAX: Colleen Mckenzie MD [phone] [place]: St: REG Name: MICHELLE FISHER [facility] : 1970 Age/S: 48/M [address] Unit: [id number] Loc: [place] [address] Phys: Colleen Mckenzie MD Acct: [id number] Dis Date: Status: REG ER PHONE #: [phone] Exam Date: 06/05/2018 1510 FAX #: [phone] Reason: june, h/o brain ca EXAMS: CPT CODE: [id number] CT HEAD/BRAIN W/O CONT 54948 < Continued> at 1520 Reported and signed by: Janeen Chacon MD CC: Colleen Mckenzie MD Technologist: CHIDI KATZmdidalia Dt/Tm: 06/05/2018 (1520) [email or web address] Orig Print D/T: S: 06/05/2018 (1523 PAGE 2 Signed ReportBASIC METABOLIC [id number] 15:18:00 Test Item Value Reference Range Comments [...] (test code=CA) 9.3 mg/dL 8.4-10.2 LIVER FUNCTION [id number] 15:18:00 Test Item Value Reference Range Comments [...] ALKALINE PHOSPHATASE (test 130 U/L 38-126 code=ALKP) [id number] 15:18:00 Test Item Value Reference Range Comments LIPASE (test code=LIP) 133 U/L 23-300 BASIC METABOLIC [id number] 15:16:00 Test Item Value Reference Range Comments [...] (test code=CA) 9.3 mg/dL 8.4-10.2 LIVER FUNCTION [id number] 15:16:00 Test Item Value Reference Range Comments [...] ALKALINE PHOSPHATASE (test 130 U/L 38-126 code=ALKP) [id number] 15:16:00 Test Item Value Reference Range Comments LIPASE (test code=LIP) U/L 23-300 PROTHROMBIN [id number] 15:07:00 Test Item Value Reference Range Comments [...] Food and Drug Administrationrecommendations . THROMBOPLASTIN TIME [id number] 15:07:00 Test Item Value Reference Range Comments THROMBOPLASTIN TIME PARTIAL 25.6 SECONDS 23.4-37.0 Therapeutic Range for (test code=PTT) Heparin EFFECTIVE 08/27/12 Heparin IU/mL aPTT Seconds0.3 64.30.7 88.8 CBC W/AUTO [id number] 15:02:00 Test Item Value Reference Range Comments [...] code=BA#) 0.03 x10 3/uL 0.0-0.1 LACTIC ACID [id number] 15:01:00 Test Item Value Reference Range Comments LACTIC ACID POC (test code=LACTP) 1.17 mmol/L 0.7-2.0 TROPONIN I [id number] 15:01:00 Test Item Value Reference Range Comments [...] similarmethodology is used. - XR CHEST 1 [id number] 14:53:00 [place]: St: REG Name: MICHELLE FISHER [facility] : 1970 Age/S: 48/M [address] Unit#: [id number] Loc: [place] [address] Phys: Isaias Gruber Acct: [id number] Dis Date: Status: REG ER PHONE #: [phone] Exam Date: 06/05/2018 1440 FAX #: [phone] Reason: CODE SEPSIS EXAMS: CPT CODE: [id number] XR CHEST 1 V 36985 EXAM: Portable chest x-ray, one view INDICATION: [...] basilar atelectasis and or early infiltrate at 2776 Reported and signed by: Rodolfo Kim M.D. CC: Technologist: KYARA KHANNA (Anais) Trnscrd Date/Time/By: 06/05/2018 (1102) : By: Lizet PAGE 1 Signed Report [place]: St: REG----- Name : MICHELLE FISHER MYA Foreman : Age/S: 48/M [address] Unit #: [id number] Loc: [place] [address] Phys: Isaias Gruber Acct: [id number] Dis Date: Status: REG ER PHONE #: [phone] Exam Date: 06/05/2018 1440 FAX #: [phone] Reason: CODE SEPSIS EXAMS: CPT CODE: [id number] XR CHEST 1 V 68695 <Continued> Orig Print D/T: S: 06/05/2018 (145) PAGE 2 Signed Report
--- NOTE | 2019-01-07 12:55 | RAD REPORT ---
EXAM DESCRIPTION: RAD - Chest Pa And Lat (2 Views) - 01/07/2019 12:48 pm CLINICAL HISTORY: Cough;Chest pain Chest pain. COMPARISON: Chest Single View dated 07/05/2018; Thorax Wo Con dated 09/26/2018 FINDINGS: The lungs are mildly emphysematous but clear. The heart is normal in size. No displaced fr actures. IMPRESSION: Mild COPD.
[2019-01-07] MEDS ORDERED: IPRATROPIUM BROM 0.5MG/2.5ML ONE (13:16)
[2019-01-07] MEDS ORDERED: ALBUTEROL 2.5 MG/3 ML NEB SOL ONE (13:16)
[2019-01-07 13:35] LABS: Absolute Lymphocytes (CBC) 1.3 K/uL (0.7-4.9); Basophils % 0.4 % (0-1.3); Hematocrit 45.4 % (39.6-49.0); Lymphocytes % 28.6 % (15.3-44.8); MPV 7.2 fL (7.6-11.3); RBC Red Blood Cell Count 4.85 M/uL (4.33-5.43)
[2019-01-07 13:55] LABS: ALT/SGPT 31 U/L (12-78); AST/SGOT 20 U/L (15-37); Alkaline Phosphatase 114 U/L (45-117); BUN Blood Urea Nitrogen 19 mg/dL (7-18); Bicarbonate 25 mmol/L (21-32); Bilirubin Total 0.4 mg/dL (0.2-1.0); Glucose Level 114 mg/dL (74-106); Potassium 4.2 mmol/L (3.5-5.1); Protein, Total 7.8 g/dL (6.4-8.2); Sodium Level 137 mmol/L (136-145); Troponin (Emerg Dept Use Only) < 0.02 ng/mL (0.0-0.045)
[2019-01-07] MEDS ORDERED: HYDROCODONE/CHLORPHEN 5 ML/OSYR ONE (14:26)
[2019-01-07] MEDS ORDERED: NA CHLORIDE 0.9% 500 ML ONE (15:16)
[2019-01-07 15:28] LABS: Urine Blood 2+ (NEG); Urine Glucose NEGATIVE (NEG); Urine Protein 3+ (NEG); Urine Specific Gravity 1.025 (1.005-1.030); Urine pH 5.5 (5.0-7.0)
--- NOTE | 2019-01-07 15:58 | ER ---
Nurse's Notes [facility] Name: Sanjeev Mcpherson Age: 48 yrs Sex: Male : 1970 Arrival Date: 01/07/2019 Time: 12:05 Bed 23 Private MD: Kam Bassett Diagnosis: Acute bronchitis Presentation: 01/07 12:28 Presenting complaint: Patient states: "I've been coughing a lot and its all built up in aj1 my chest. I've been having a lot of pains and congestion. I vomited this morning but it was just phlegm and the back of my eyes hurt" Denies fever. 12:30 Transition of care: patient was not received from another setting of care. Onset of aj1 symptoms was December 2018. Risk Assessment: Do you want to hurt yourself or someone else? Patient reports no desire to harm self or others. Care prior to arrival: None. 12:30 Method Of Arrival: Ambulatory aj 12:30 Acuity: JULIANNE 3 aj1 12:32 Initial Sepsis Screen: Does the patient meet any 2 criteria? HR > 90 bpm. No. Patient's aj1 initial sepsis screen is negative. Does the patient have a suspected source of infection? Yes: Productive cough/pneumonia. Triage Assessment: 12:31 General: Appears in no apparent distress. comfortable, Behavior is calm, cooperative, aj1 appropriate for age. Pain: Pain currently is 9 out of 10 on a pain scale. EENT: Reports nasal congestion nasal discharge. Neuro: Level of Consciousness is awake, alert, obeys commands. Cardiovascular: Patient's skin is warm and dry. Respiratory: Reports cough that is productive, hacking, persistent Airway is patent Respiratory effort is even, unlabored, Respiratory pattern is regular, symmetrical. Historical: - Allergies: 12:31 Adhesives; aj1 12:31 Anesthetics - Amide Type; aj1 12:31 Iodine; aj1 - Home Meds: 12:31 insulin [Active]; lisinopril Oral [Active]; Simvastatin Oral [Active]; aj1 - PMHx: 12:31 Cancer; Diabetes - NIDDM; Hyperlipidemia; Hypertension; brain tumor; "I only have one aj1 lung"; - Immunization history:: Flu vaccine is up to date. - Social history:: Smoking status: Patient/guardian denies using tobacco. - Ebola Screening: : Patient denies travel to an Ebola-affected area in the 21 days before illness onset. Screenin:10 Abuse screen: Denies threats or abuse. Denies injuries from another. Nutritional mg2 screening: No deficits noted. Tuberculosis screening: No symptoms or risk factors identified. Fall Risk None identified. Assessment: 13:09 General: Appears in no apparent distress. comfortable, Behavior is calm, cooperative. mg2 Pain: Denies pain. Neuro: Level of Consciousness is awake, alert, obeys commands, Oriented to person, place, time, situation. Cardiovascular: Capillary refill < 3 seconds Patient's skin is warm and dry. Respiratory: Reports cough that is non-productive, dry, persistent since 3 days ago Airway is patent Respiratory effort is even, unlabored, Respiratory pattern is regular, symmetrical. GI: No signs and/or symptoms were reported involving the gastrointestinal system. : No signs and/or symptoms were reported regarding the genitourinary system. EENT: No signs and/or symptoms were reported regarding the EENT system. Derm: Skin is intact, is healthy with good turgor, Skin is pink, warm \\T\\ dry. normal. Musculoskeletal: Circulation, motion, and sensation intact. Capillary refill < 3 seconds. 16:14 Reassessment: Patient appears in no apparent distress at this time. Patient states mg2 feeling better. Patient states symptoms have improved. Vital Signs: 12:31 BP 118 / 88; Pulse 102; Resp 20; Temp 97.7; Pulse Ox 98% on R/A; Weight 86.18 kg (R); aj1 Height 5 ft. 0 in. (152.40 cm) (R); 13:11 BP 154 / 91; Pulse 98; Resp 18; Pulse Ox 100% on R/A; mg2 13:49 Temp 98.2(O); mg2 15:00 BP 128 / 88; Pulse 118; Resp 18; Pulse Ox 97% on R/A; mg2 16:01 BP 131 / 92; Pulse 105; Resp 18; Pulse Ox 98% on R/A; mg2 12:31 Body Mass Index 37.11 (86.18 kg, 152.40 cm) aj1 ED Course: 12:05 Patient arrived in ED. as 12:05 Kam Bassett MD is Private Physician. as 12:30 Triage completed. aj1 12:30 Flu and/or RSV swab sent to lab. Strep swab sent to lab. jp3 12:31 Arm band placed on. aj1 12:46 Chest Pa And Lat (2 Views) XRAY In Process Unspecified. EDMS 13:00 Mihir Odom PA is PHCP. [facility] 13:00 Mic Clark MD is Attending Physician. [facility] 13:01 Brigido Walker, ДМИТРИЙ is Primary Nurse. mg2 13:11 Patient has correct armband on for positive identification. Pulse ox on. NIBP on. Door mg2 closed. Warm blanket given. 13:11 No provider procedures requiring assistance completed. mg2 13:26 Inserted saline lock: 20 gauge in right forearm, using aseptic technique. Blood mg2 collected. by EMILY Lynch. 13:30 Initial lab(s) drawn, by sd, sent to lab. Patient maintains SpO2 saturation greater jp3 than 95% on room air. 13:47 Throat Culture Sent. jp3 13:53 Urine collected: clean catch specimen, clear, sue colored. jp3 15:57 Kam Bassett MD is Referral Physician. jmm 16:15 IV discontinued, intact, bleeding controlled, No redness/swelling at site. Pressure mg2 dressing applied. Administered Medications: 13:18 Drug: DuoNeb (3:1) (2.5 mg - 0.5 mg) 3 ml Route: Nebulizer; mg2 15:51 Follow up: Response: No adverse reaction mg2 14:27 Drug: Tussionex Pennkinetic ER 5 ml Route: PO; mg2 15:51 Follow up: Response: No adverse reaction mg2 15:30 Drug: NS 0.9% 500 ml Route: IV; Rate: bolus; Site: right forearm; mg2 Outcome: 15:58 Discharge ordered by . jmm 16:15 Discharged to home ambulatory, with family. mg2 16:15 Condition: stable 16:15 Discharge instructions given to patient, family, Instructed on discharge instructions, follow up and referral plans. medication usage, Demonstrated understanding of instructions, follow-up care, medications, Prescriptions given X 3. 16:15 Patient left the ED. mg2 Signatures: Dispatcher [employer] EDMS Nicky Burton RN RN aj1 Mihir Odom PA PA jm Jada Tobias as Brigido Walker, ДМИТРИЙ RN mg2 Efrain Goldstein jp3 Corrections: (The following items were deleted from the chart) 12:33 12:30 Acuity: JULIANNE 4 aj1 aj1 13:27 13:11 Patient did not have IV access during this emergency room visit. mg2 mg2 16:01 15:00 BP 128 / 88; Resp 18bpm; Pulse Ox 97% RA; mg2 mg2
--- NOTE | 2019-01-07 15:58 | EDPHYS ---
Physician Documentation [facility] Name: Sanjeev Mcpherson Age: 48 yrs Sex: Male : 1970 Arrival Date: 01/07/2019 Time: 12:05 Bed 23 Private MD: Kam Bassett ED Physician Mic Clark HPI: 01/07 12:30 This 48 yrs old Male presents to ER via Ambulatory with complaints of Chest jmm Congestion. 12:30 The patient or guardian reports cough. Onset: The symptoms/episode began/occurred jmm gradually, 2 day(s) ago. Modifying factors: The symptoms are alleviated by nothing. the symptoms are aggravated by nothing. Associated signs and symptoms: Pertinent positives: chest pain, with cough. This is a 48 year old male with a history of DM, HLP, HTN, that presents to the ED with complaints of cough, sinus congestion, body aches. Patient complains of hernia pain when he coughs. Son was recently diagnosed with an ear infection. . Historical: - Allergies: 12:31 Adhesives; aj1 12:31 Anesthetics - Amide Type; aj1 12:31 Iodine; aj1 - Home Meds: 12:31 insulin [Active]; lisinopril Oral [Active]; Simvastatin Oral [Active]; aj1 - PMHx: 12:31 Cancer; Diabetes - NIDDM; Hyperlipidemia; Hypertension; brain tumor; "I only have one aj1 lung"; - Immunization history:: Flu vaccine is up to date. - Social history:: Smoking status: Patient/guardian denies using tobacco. - Ebola Screening: : Patient denies travel to an Ebola-affected area in the 21 days before illness onset. ROS: 12:30 Constitutional: Positive for body aches. jmm 12:30 Cardiovascular: Positive for chest pain, with cough. 12:30 Respiratory: Positive for cough. 12:30 All other systems are negative. Exam: 12:30 Head/Face: atraumatic. Eyes: EOMI, no conjunctival erythema appreciated jmm 12:30 Neck: Trachea midline, Supple Chest/axilla: Normal chest wall appearance and motion. 12:30 Constitutional: The patient appears in no acute distress, alert, awake. 12:30 ENT: TM's: erythema, that is mild, bilaterally, Posterior pharynx: erythema, that is mild. 12:30 Cardiovascular: Rate: normal, Rhythm: regular, Pulses: no pulse deficits are appreciated. 12:30 Respiratory: the patient does not display signs of respiratory distress, Respirations: normal, Breath sounds: wheezing: that is moderate, is heard diffusely. 12:30 Abdomen/GI: Inspection: abdomen appears normal, Palpation: soft, in all quadrants. 12:30 Back: ROM is normal. 12:30 Musculoskeletal/extremity: ROM: intact in all extremities. 12:30 Skin: Appearance: Color: normal in color. 12:30 Neuro: Orientation: is normal, Mentation: is normal, Memory: is normal. 12:30 Psych: Behavior/mood is pleasant, cooperative. Vital Signs: 12:31 BP 118 / 88; Pulse 102; Resp 20; Temp 97.7; Pulse Ox 98% on R/A; Weight 86.18 kg (R); aj1 Height 5 ft. 0 in. (152.40 cm) (R); 13:11 BP 154 / 91; Pulse 98; Resp 18; Pulse Ox 100% on R/A; mg2 13:49 Temp 98.2(O); mg2 15:00 BP 128 / 88; Pulse 118; Resp 18; Pulse Ox 97% on R/A; mg2 16:01 BP 131 / 92; Pulse 105; Resp 18; Pulse Ox 98% on R/A; mg2 12:31 Body Mass Index 37.11 (86.18 kg, 152.40 cm) [facility] MDM: 13:11 Patient medically screened. [facility] 15:56 Data reviewed: vital signs, nurses notes. Counseling: I had a detailed discussion with dinorah the patient and/or guardian regarding: the historical points, exam findings, and any diagnostic results supporting the discharge/admit diagnosis, lab results, radiology results, the need for outpatient follow up, to return to the emergency department if symptoms worsen or persist or if there are any questions or concerns that arise at home. ED course: Patient is alert and non toxic in appearance in the ED. Decreased wheezing on re auscultation. Patient is advised to closely monitor bgl with medrol dose pack. patient is otherwise given strict return precautions. Patient understood and agrees with the plan of care. Creatine appears consistent with previous labs. . 01/07 12:30 Order name: Flu; Complete Time: 13:11 aj 01/07 12:30 Order name: Strep; Complete Time: 13:05 [facility] 01/07 13:02 Order name: Throat Culture [facility] 01/07 13:13 Order name: CBC with Diff; Complete Time: 14:12 [facility] 01/07 13:13 Order name: CMP; Complete Time: 14:12 [facility] 01/07 13:13 Order name: Troponin (emerg Dept Use Only); Complete Time: 14:12 [facility] 01/07 12:30 Order name: Chest Pa And Lat (2 Views) XRAY; Complete Time: 13:05 [facility] 01/07 13:13 Order name: Procalcitonin; Complete Time: 14:24 [facility] 01/07 13:13 Order name: Lactate; Complete Time: 14:12 [facility] 01/07 14:17 Order name: Urine Dipstick--Ancillary (enter results); Complete Time: 15:56 [facility] 01/07 13:13 Order name: Urine Dipstick-Ancillary (obtain specimen); Complete Time: 13:53 [facility] 01/07 13:13 Order name: Saline Lock; Complete Time: 13:24 [facility] Administered Medications: 13:18 Drug: DuoNeb (3:1) (2.5 mg - 0.5 mg) 3 ml Route: Nebulizer; mg2 15:51 Follow up: Response: No adverse reaction mg2 14:27 Drug: Tussionex Pennkinetic ER 5 ml Route: PO; mg2 15:51 Follow up: Response: No adverse reaction mg2 15:30 Drug: NS 0.9% 500 ml Route: IV; Rate: bolus; Site: right forearm; mg2 Disposition: 17:49 Co-signature as Attending Physician, Mic Clark MD. ma2 Disposition: 01/07/19 15:58 Discharged to Home. Impression: Acute bronchitis. - Condition is Stable. - Discharge Instructions: Acute Bronchitis, Adult. - Prescriptions for Zithromax Z- Chip 250 mg Oral Tablet - take 1 tablet by ORAL route as directed for 5 days Day 1 - take two (2) tablets one time. Day 2, 3, 4 , 5 take one (1) tablet once daily.; 6 tablet. Medrol (Chip) 4 mg Oral Tablets, Dose Pack - take 1 tablet by ORAL route as directed - follow package instructions; 1 packet. Albuterol Sulfate 90 mcg/actuation - inhale 1-2 puff by INHALATION route every 4-6 hours; 1 Inhaler. - Medication Reconciliation Form, Thank You Letter, Antibiotic Education, Prescription Opioid Use form. - Follow up: Kam Bassett MD; When: 1 - 2 days; Reason: Recheck today's complaints, Continuance of care, Re-evaluation by your physician. Signatures: Dispatcher [employer] EDMS Nicky Burton RN RN aj1 Mihir Odom PA PA Mic Gonsalez MD MD ma2 Brigido Walker RN RN mg2 Corrections: (The following items were deleted from the chart) 13:13 13:12 Accucheck ordered. [facility] 15:57 12:30 Respiratory: the patient does not display signs of respiratory distress, [facility] Respirations: normal, Breath sounds: are clear throughout, [facility] 15:59 15:56 ED course: Patient is alert and non toxic in appearance in the ED. Decreased [facility] wheezing on re auscultation. Patient is advised to closely monitor bgl with medrol dose pack. patient is otherwise given strict return precautions. Patient understood and agrees with the plan of care. . [facility] 16:15 15:58 01/07/2019 15:58 Discharged to Home. Impression: Acute bronchitis. Condition is mg2 Stable. Forms are Medication Reconciliation Form, Thank You Letter, Antibiotic Education, Prescription Opioid Use. Follow up: Kam Bassett; When: 1 - 2 days; Reason: Recheck today's complaints, Continuance of care, Re-evaluation by your physician. [facility]
[2019-01-07 17:20] VITALS: TEMP 98.2
[2019-01-07 17:22] VITALS: BP 131/92; O2SAT 98
== END 2019-01-07 16:15 | disposition home or self-care (01) ==
LOC: ER 12:03
DX: J20.9 Acute bronchitis, unspecified (principal); I10 Essential (primary) hypertension; E11.9 Type 2 diabetes mellitus without complications; Z79.4 Long term (current) use of insulin; Z88.4 Allergy status to anesthetic agent; Z88.8 Allergy status to other drugs, medicaments and biological substances; Z91.048 Other nonmedicinal substance allergy status
CPT/HCPCS: 87070; 85025; 36415; 87081; 83605; 81003; 84484; 80053; 84145; 87804 ×2; 71046; 94640; 99285; J7040

== ENCOUNTER 2019-12-02 05:53 | Day surgery (SDC) | payer OTHER ==
--- NOTE | 2019-11-30 16:44 | RAD REPORT ---
EXAM DESCRIPTION: RAD - Chest Pa And Lat (2 Views) - 11/30/2019 4:19 pm CLINICAL HISTORY: pre op Chest pain. COMPARISON: Chest Pa And Lat (2 Views) dated 01/07/2019; Chest Single View dated 07/05/2018 FINDINGS: The lungs are mildly emphysematous but clear. The heart is normal in size. No displaced fr actures. Trace right pleural unchanged. IMPRESSION: Mild diffuse COPD.
[2019-11-30 16:47] LABS: Absolute Lymphocytes (CBC) 2.5 K/uL (0.7-4.9); Basophils % 0.6 % (0-1.3); Hematocrit 44.7 % (39.6-49.0); Lymphocytes % 28.5 % (15.3-44.8); MPV 7.5 fL (7.6-11.3); RBC Red Blood Cell Count 4.82 M/uL (4.33-5.43)
[2019-11-30 17:33] LABS: Potassium 4.1 mmol/L (3.5-5.1)
--- OUTSIDE RECORDS SUMMARY | 2019-12-02 05:59 | XMS REPORT | Clinical Summary ---
:1970 Author Organization [facility] Dist[facility] Address [facility] [place] [address] Care Team Providers Name Role Phone Unavailable Primary Care Provider Unavailable Allergies No Known Allergies Medications Medication Sig Dispensed Refills Start Date End Date Status acetaminophen-codeine Take 1 tablet by 30 tablet 0 02/16/2016 Active (TYLENOL/CODEINE #3) mouth every 4 300-30 mg per hours as needed tabletIndications: for Pain. Hernia, inguinal, right Active Problems Not on file Social History Tobacco Use Types Packs/Day Years Used Date Current Every Day Smoker Alcohol Use Drinks/Week oz/Week Comments No Sex Assigned at Date Recorded Not on file Job Start Date Occupation Industry Not on file Not on file Not on file Travel History Travel Start Travel End No recent travel history available. Last Filed Vital Signs Not on file Plan of Treatment Health Maintenance Due Date Last Done Comments IMM Influenza Seasonal Nov to April (>/= 19 yrs) 11/19/2019 Results Not on fileafter 12/01/2018 Insurance Payer Benefit Plan / Subscriber ID Effective Dates Phone Addre ss Type Group [employer] xxxxxxxxx 2016-Pres [phone] [id number] SELF-PAY UNSCREENED ent [address] [place] [id number]
--- OUTSIDE RECORDS SUMMARY | 2019-12-02 06:02 | XMS REPORT | Continuity of Care Document ---
:1970 Author Organization [employer] Care Team Providers Name Role Phone [facility] Unavailable Un available Problems Problem Status Onset Classification Date Comments Sourc e Date Reported Discharge 02/06/20 02/13/2016 Diagnosis: CAP [place] (community acquired pneumonia) VOMITTING, COUGH Active 02/06/20 WITH BLOOD [facility] [place] Discharge 08/10/19 08/13/2015 Diagnosis: 16 [facility] Cholelithiasis Discharge 08/10/19 08/13/2015 Diagnosis: 16 [facility] Abdominal pain ABDOMINAL PAIN Active 08/10/19 16 [facility] Discharge 09/01/19 09/04/2014 Diagnosis: 15 [facility] Conjunctivitis PINK EYE, Active 09/01/19 CONGESTION 15 [place] EAR PAIN Active 09/21/19 14 [facility] LOWER BACK PAIN/ Active 03/31/19 INJURY 14 [place] Abscess Resolved Problem 02/13/2016 MH (disorder) [facility] Diabetes mellitus Resolved Problem 02/13/2016 M H (disorder) [facility] Has seen Resolved Problem 02/13/2016 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 (Same as: Protonix) Amoxicillin 875 MG 875 mg = 1 Active / Clavulanate 125 tab, PO, Q12H, 2015 [place] MG Oral Tablet # 20 tab, 0 [Augmentin 875-mg] Refill(s) doxycycline 100 mg = 1 Inactive monohydrate 100 mg tab, PO, Q12H, 2015 [place] oral tablet X 10 day, # 20 tab, 0 Refill(s) Ciprofloxacin 500 500 mg = 1 Active MG Oral Tablet tab, PO, Q12H, 2016 [place] [facility] [Cipro] X 10 day, # 20 tab, 0 Refill(s) 200 ACTUAT 2 puff, Active Albuterol 0.09 INHALATION, [place] MG/ACTUAT Metered Q6H, PRN for Dose Inhaler shortness of breath or wheezing, # 9 gm, 0 Refill(s) Acetaminophen 325 1 tab, PO, Active MG / Hydrocodone Q6H, PRN for 2016 [facility] Bitartrate 10 MG pain, # 30 Oral Tablet [[place] tab, 0 10/325] Refill(s), given to patient tramadol 50 mg, PO, Active hydrochloride 50 Q6H, PRN Pain, 2016 [place] MG Oral Tablet X 7 day, # 30 tab, 0 Refill(s) Levemir FlexPen Notes: Same as No Longer Levemir Do not Active 2015 hold insulin without contacting prescriber WASTE: F/P - Black; E - Municipal Trash Bin "single patient use only" tramadol Notes: Not to No Longer hydrochloride 50 exceed Active [address] MG Oral Tablet 400mg/day. (Same As: Ultram) Acetaminophen 325 Notes: (Same No Longer MG / Hydrocodone as: [place] Active [place] Bitartrate 5 MG 325/5) Do not Oral Tablet exceed 4gm/day of acetaminophen. Iohexol 50 mL, Route: Inactive PO, Drug Form: 2015 [place] SOLN, Dosing Weight 77.528, kg, ONCE, STAT, Start date: 02/09/16 15:14:00 ACTION INSTALLER, Stop date: 02/09/16 15:14:00 ACTION INSTALLER Morphine Notes: (Same No Longer as:MORPhine Active 2015 [facility] Sulfate) Insulin, Aspart, Notes: Roll in No Longer Human palms of hands Active 2015 gently; Do not shake vigorously. (Same as: NovoLOG) "single patient use only" WASTE: F/P - Black; E - Municipal Trash Bin Stable for 28 days at room temperature. Expires in days from Date Phenergan 12.5 mg, 50 No Longer mL, Route: Active 2015 [facility] IVPB, Drug form: SOLN, Q4H, Dosing Weight 77.528, kg, PRN Other -See Comment, Start date: 02/08/16 8:00:00 ACTION INSTALLER, Duration: 30 day, Stop date: 03/09/16 7:59:00 ACTION INSTALLER Meperidine Notes: (Same Inactive as: Demerol) 2015 [facility] "Use Precaution in Elderly, Seizure disorders, and Renal impairment&quo t; Diphenhydramine Notes: (Same Inactive as: Benadryl) 2015 [facility] Glycopyrrolate Notes: (Same Inactive as: Robinul) 2015 [facility] Naloxone Notes: Same as Inactive Narcan 2015 [facility] Albuterol 0.83 Notes: SEE RT Inactive MG/ML Inhalant DOCUMENTATION 2015 [facility] Solution MEDICATION WASTE Product Size: 2.5 mg Product Wasted: ___ mg Labetalol Notes: (Same Inactive as: Normodyne, 2015 [facility] Trandate) Push over 2 minutes Give bolus over 2-3 minutes. Hydralazine Notes: (Same Inactive as: 2015 [facility] Apresoline) Push over 5 minutes Oxycodone Notes: (Same Inactive as: 2015 [facility] Roxicodone) Acetaminophen Notes: Max No Longer acetaminophen Active 2015 [facility] 4000 mg/day (4 gm/day). (Same as: Tylenol Extra Strength) Morphine Notes: (Same Inactive as:MORPhine 2015 [facility] Sulfate) Metoprolol Notes: (Same Inactive as: Lopressor) 2015 [facility] Push over 2 minutes Flumazenil Notes: (Same Inactive as: Romazicon) 2015 [facility] Ondansetron Notes: (Same No Longer as: Zofran) Active 2015 [facility] MEDICATION WASTE Product Size: 4 mg Product Wasted: ___ mg Promethazine 6.25 mg, 50 No Longer mL, Route: Active 2015 IVPB, Drug form: SOLN, ONCE, Dosing Weight 77.528, kg, PRN Nausea & Vomiting, Start date: 02/08/16 7:00:00 ACTION INSTALLER Dexamethasone Notes: No Longer Concentration: Active 2015 [facility] 4mg/ml Midazolam Notes: (Same Inactive as: Versed) 2015 MEDICATION WASTE Product Size: 2 mg Product Wasted: ___ mg Lidocaine 5 mL, Route: Inactive NEB, Drug 2015 [facility] Form: SOLN, Dosing Weight 77.528, kg, ONCE, Start date: 02/08/16 7:00:00 ACTION INSTALLER, Stop date: 02/08/16 7:00:00 ACTION INSTALLER sodium chloride 1,000 mL, No Longer 0.9% 1000 ml INJ Rate: 40 Active 2015 [facility] 1,000 mL ml/hr, Infuse over: 25 hr, Route: IV, Dosing Weight 77.528 kg, Total Volume: 1,000, Start date: 02/08/16 6:52:00 ACTION INSTALLER, Duration: 1 doses or times, Stop date: 02/09/16 7:51:00 ACTION INSTALLER azithromycin 500 Notes: Take 1 No Longer mg oral tablet hour before or Active 2015 [facility] 2 hours after meals. (Same As: Zithromax) Robitussin-AC oral Notes: (Same No Longer syrup As: Robitussin Active 2015 [facility] AC) Keeley Downey Notes: (Same No Longer 02/06/ H As: Tessalon Active 2015 [facility] Shayan) "Do Not Crush" metoprolol Notes: (Same No Longer tartrate as: Lopressor) Active 2015 [facility] t Levemir FlexPen Notes: Same as No Longer Levemir Do not Active 2015 hold insulin without contacting prescriber WASTE: F/P - Black; E - Municipal Trash Bin "single patient use only" Protonix Notes: For IV No Longer push Active 2015 [facility] reconstitute with 10 ml 0.9% sodium chloride and push over 2 minutes. (Same as: Protonix) Hydralazine Notes: (Same No Longer as: Active 2015 [facility] Apresoline) Push over 5 minutes Robitussin-AC oral Notes: (Same No Longer syrup As: Robitussin Active 2015 [facility] AC) Insulin, Aspart, Notes: Roll in No Longer Human palms of hands Active 2015 [facility] gently; Do not shake vigorously. (Same as: NovoLOG) "single patient use only" WASTE: F/P - Black; E - Municipal Trash Bin Stable for 28 days at room temperature. Expires in days from Date Glucagon 1 mg, Route: No Longer IM, Drug form: 2015 [facility] PDR/INJ, PRN, Dosing Weight 80.455, kg, PRN Blood Glucose Results, Start date: 02/06/16 14:51:00 ACTION INSTALLER, Duration: 30 day, Stop date: 03/07/16 14:50:00 ACTION INSTALLER Dextrose 50% 25 gm, 50 mL, No Longer Syringe Route: IVP, 2015 [facility] Drug Form: INJ, Dosing Weight 80.455, kg, PRN, PRN Blood Glucose Results, Start date: 02/06/16 14:51:00 ACTION INSTALLER, Duration: 30 day, Stop date: 03/07/16 14:50:00 ACTION INSTALLER Ceftriaxone Notes: (Same No Longer As: Rocephin). 2015 [facility] Use with 100 mL NS and infuse over 30 min MEDICATION WASTE Product Size: 2000 mg Product Wasted: ___ mg Azithromycin Notes: (Same No Longer As: Zithromax Active 2015 [facility] IV) Saline Flush 0.9% Notes: (Same No Longer as: BD 2015 [facility] Posiflush) Sodium Chloride 1,000 mL, No Longer 0.154 MEQ/ML Rate: 100 2015 [facility] Injectable ml/hr, Infuse Solution over: 10 hr, Route: IV, Dosing Weight 80.455 kg, Total Volume: 1,000, Start date: 02/06/16 13:17:00 ACTION INSTALLER, Duration: 30 day, Stop date: 03/07/16 13:16:00 ACTION INSTALLER Acetaminophen Notes: Do not No Longer exceed 4 2015 [facility] gm/day. (Same as: Tylenol) Acetaminophen 325 Notes: (Same No Longer MG / Hydrocodone as: [place] Active 2015 [place] Bitartrate 5 MG 325/5) Do not Oral Tablet exceed 4gm/day of acetaminophen. Morphine Notes: (Same No Longer as:MORPhine Active 2015 [facility] Sulfate) Docusate Notes: (Same No Longer as: Colace) Active 2015 [facility] (Do Not Crush) Ondansetron Notes: (Same No Longer as: Zofran) Active 2015 MEDICATION WASTE Product Size: 4 mg Product Wasted: ___ mg Fentanyl Notes: (Same Inactive as: Sublimaze) 2015 [facility] Preservative free. 200 ACTUAT 2 puff, Active Albuterol 0.09 INHALATION, 2015 MG/ACTUAT Metered QID, PRN for Dose Inhaler wheezing / coughing, # 25 gm, 0 Refill(s) Codeine Phosphate 10 ml, PO, No Longer H 2 MG/ML / Q4H, PRN for Active 2015 [facility] Guaifenesin 20 cough, X 5 MG/ML Oral day, # 300 mL, Solution 0 Refill(s) [Cheratussin] Levofloxacin 750 750 mg = 1 Active MG Oral Tablet tab, PO, Q24H, 2015 [facility] [Levaquin] X 10 day, # 10 tab, 0 Refill(s) benzonatate 200 MG 200 mg = 1 Active Oral Capsule cap, PO, TID, 2015 [Tessalon] X 7 day, # 21 cap, 0 Refill(s) Levaquin Notes: (Same Inactive as:Levaquin) 2015 [place] Chloride 1,000 mL, Inactive 0.154 MEQ/ML 1,000 ml/hr, 2015 [facility] Injectable Infuse Over: 1 Solution hr, Route: IV, 1,000, Drug form: INJ, ONCE, Priority: STAT, Dosing Weight 80.455 kg, Start date: 02/06/16 5:34:00 ACTION INSTALLER, Duration: 1 doses or times, Stop date: 12/19/16 5:34:00 ACTION INSTALLER Acetaminophen 300 Notes: Do not Inactive MG / Codeine exceed 4gm/day 2016 [place] Phosphate 30 MG of Oral Tablet acetaminophen. [Tylenol with (Same as: Codeine #3] Tylenol with Codeine # 3) methylPREDNISolone Notes: (Same Inactive SODium SUCCinate as:Solu-MEDROL 2015 [facility] , A-Methapred) Diphenhydramine Notes: (Same Inactive as: Benadryl) 2015 [facility] Famotidine Notes: (Same Inactive as: Pepcid) 2015 [place] Can be dilute in 5-10cc NS IVP: Slow IV push over at least 2 minutes. 12 HR Notes: Inactive Chlorpheniramine (chlorpheniram 2015 [place] 1.6 MG/ML ine-hydrocodon / Hydrocodone e 8-10mg/5ml Bitartrate 2 MG/ML LIQ) Extended Release Non-formulary Suspension drug. (Same [Tussionex As: Tussionex [facility]] [employer]) Prednisone Notes: Take Inactive with food. 2015 Albuterol 0.833 Notes: (Same Inactive MG/ML / as: Duoneb) 2015 [facility] Ipratropium [place] 0.167 MG/ML Inhalant Solution [DuoNeb] Saline Flush 0.9% Notes: (Same Inactive as: BD 2015 [facility] Posiflush) Ondansetron 4 MG 4 mg = 1 tab, Active 08/09/ H Disintegrating PO, TID, 2016 [place] t Tablet [Zofran] Dissolve tab under tongue, X 3 day, # 9 tab, 0 Refill(s) Dicyclomine 10 mg = 1 cap, Active Hydrochloride 10 PO, QID-Before 2016 [place] MG Oral Capsule Meals, # 28 [Bentyl] cap, 0 Refill(s) tramadol 50 mg = 1 tab, Active hydrochloride 50 PO, BID, X 5 2016 [facility] MG Oral Tablet day, # 10 tab, 0 Refill(s) Morphine 4 mg, Route: Inactive IVP, ONCE, 2015 Dosing Weight 79.545, kg, Priority: STAT, Start date: 08/10/15 15:48:00 CDT, Stop date: 08/10/15 15:48:00 CDT Ondansetron 4 mg, Route: Inactive IVP, ONCE, 2015 [facility] Dosing Weight 79.545, kg, Priority: STAT, Start date: 08/10/15 15:48:00 CDT, Stop date: 08/10/15 15:48:00 CDT Saline Flush 0.9% Notes: (Same Inactive as: BD 2015 [facility] Posiflush) Sodium Chloride 1,000 mL, Inactive 0.154 MEQ/ML 2,000 ml/hr, 2016 [facility] Injectable Infuse Over: Solution 30 minutes, Route: IV, ONCE, Priority: STAT, Dosing Weight 79.545 kg, Start date: 08/10/15 15:48:00 CDT, Duration: 1 doses or times, Stop date: 08/10/15 15:48:00 CDT bacitracin-polymyx 1 appl, BOTH No Longer in B ophthalmic EYES, QID, # 3 Active 2014 [place] ointment gm, 0 Refill(s) Motrin 800 mg oral 800 mg = 1 Active Weather04/01/ H tablet tab, PO, Q8H, 2013 [facility] Pain, Take with food, # 30 tab, 0 Refill(s)Take with food acetaminophen-hydr 1-2 tab, PO, Active [place] ocodone 325 mg-5 Q4-6H, Pain, # 2013 [place] mg oral tablet 15 tab, 0 Refill(s) [place] 5/325 oral 2 tab, Route: Inactive s tablet PO, Drug Form: 2013 [facility] TAB, Dosing Weight 85.455, kg, ONCE, Start date: 04/01/13 15:42:00, Stop date: 04/01/13 15:42:00(Same as: [place] 325/5) Do not exceed 4gm/day of acetaminophen. Motrin 800 mg, 2 tab, Inactive [place] Route: PO, 2013 [facility] Drug form: TAB, ONCE, Dosing Weight 85.455, kg, Priority: STAT, Start date: 04/01/13 15:42:00, Stop date: 04/01/13 15:42:00(Same as: Motrin) "Do Not Crush" Give with food. Allergies, Adverse Reactions, Alerts Substance Category Reaction Severity Reaction Status Date Comments S ource type Reported iodinated Assertion Drug Active MH radiocontrast allergy [facility] dyes Iodine Mild Assertion Drug Active MH allergy [place] Immunizations Immunization Date Given Site Status Last Updated Comments Janet rce influenza virus 02/10/2016 Not Given [facility] vaccine, inactivated Results Order Name Results Value Reference Date Interpretation Comments Janet rce Range CHEM PANEL Phosphorus 3.3 2.5 - 4.5 02/09 [facility] CHEM PANEL Magnesium 1.8 1.8 - 2.4 02/09 [facility] ELECTROLYTES CO2 27 24 - 32 02/09 [facility] ELECTROLYTES Calcium Lvl 8.7 8.5 - 10.5 02/09 [facility] ELECTROLYTES AGAP 10.8 10.0 - 02/09 MH 20.0 [facility] ELECTROLYTES Chloride Lvl 104 95 - 109 02/09 [facility] ELECTROLYTES eGFR 56 02/09 [facility] Comment: The [facility] eGFR is calculated using the CKD-EPI formula. [...] ELECTROLYTES Potassium 3.8 3.5 - 5.1 02/09 Lvl [facility] ELECTROLYTES Sodium Lvl 138 135 - 145 02/09 [facility] ELECTROLYTES Creatinine 1.51 0.50 - 02/09 Lvl 1.40 /2015 [facility] ELECTROLYTES BUN 22 7 - 22 02/09 [place] ELECTROLYTES Glucose Lvl 130 70 - 99 02/09 MH /2015 [facility] HEMATOLOGY WBC 8.9 3.7 - 10.4 02/09 /2015 [facility] HEMATOLOGY RBC 4.85 4.70 - 02/09 MH 6.10 /2015 [facility] HEMATOLOGY MCV 87.1 80.0 - 02/09 MH 94.0 /2015 [facility] HEMATOLOGY MCHC 32.7 32.0 - 02/09 MH 36.0 /2015 [facility] HEMATOLOGY Platelet 251 133 - 450 02/09 MH /2015 [facility] HEMATOLOGY RDW 13.1 11.5 - 02/09 MH 14.5 /2015 [place] HEMATOLOGY Hct 42.2 42.0 - 02/09 MH 54.0 /2015 [facility] HEMATOLOGY Hgb 13.8 14.0 - 02/09 MH 18.0 /2015 [facility] HEMATOLOGY MPV 7.1 7.4 - 10.4 02/09 MH /2015 [facility] HEMATOLOGY MCH 28.5 27.0 - 02/09 MH 31.0 /2015 [place] HEMATOLOGY Monocytes 5.9 2.0 - 12.0 02/09 /2015 [place] HEMATOLOGY Lymphocytes 41.2 20.0 - 02/09 MH 40.0 /2015 [place] HEMATOLOGY Basophils 0.5 0.0 - 1.0 02/09 MH /2015 [place] HEMATOLOGY Eosinophils 2.1 0.0 - 4.0 02/09 MH /2015 [place] HEMATOLOGY Segs-Bands # 4.5 1.5 - 8.1 02/09 MH /2015 [place] HEMATOLOGY Lymphocytes 3.7 1.0 - 5.5 02/09 MH # /2016 [place] HEMATOLOGY Eosinophils 0.2 0.0 - 0.5 02/09 MH # /2016 [place] HEMATOLOGY Monocytes # 0.5 0.0 - 0.8 02/09 /2015 [facility] HEMATOLOGY Segs 50.3 45.0 - 02/09 MH 75.0 /2016 [facility] CHEM PANEL Lactic Acid 1.4 0.5 - 2.2 02/08 MH Lvl /2016 [facility] ELECTROLYTES AGAP 11.0 10.0 - 02/08 MH 20.0 [facility] ELECTROLYTES eGFR 54 02/08 Result /2015 Comment: The [facility] eGFR is calculated using the CKD-EPI formula. [...] Sodium Lvl 139 135 - 145 02/08 [facility] ELECTROLYTES Potassium 4.0 3.5 - 5.1 02/08 Lvl /2015 [facility] ELECTROLYTES CO2 29 24 - 32 02/08 [facility] ELECTROLYTES Chloride Lvl 103 95 - 109 02/08 [facility] ELECTROLYTES Calcium Lvl 8.9 8.5 - 10.5 02/08 [facility] ELECTROLYTES Creatinine 1.54 0.50 - 02/08 Lvl 1.40 /2015 [facility] ELECTROLYTES BUN 24 7 - 22 02/08 [facility] ELECTROLYTES Glucose Lvl 229 70 - 99 02/08 [facility] HEMATOLOGY MCV 85.8 80.0 - 02/08 MH 94.0 /2015 [facility] HEMATOLOGY Hgb 12.8 14.0 - 02/08 MH 18.0 /2015 [facility] HEMATOLOGY Hct 38.8 42.0 - 02/08 54.0 /2015 [facility] HEMATOLOGY RBC 4.52 4.70 - 02/08 MH 6.10 /2015 [facility] HEMATOLOGY WBC 10.8 3.7 - 10.4 02/08 [facility] HEMATOLOGY Platelet 350 133 - 450 02/08 [facility] HEMATOLOGY MPV 6.5 7.4 - 10.4 02/08 [facility] HEMATOLOGY RDW 13.3 11.5 - 02/08 MH 14.5 /2015 [facility] HEMATOLOGY MCH 28.2 27.0 - 02/08 MH 31.0 /2015 [facility] HEMATOLOGY MCHC 32.9 32.0 - 02/08 MH 36.0 /2015 [facility] HEMATOLOGY Basophils # 0.1 0.0 - 0.2 02/08 [facility] HEMATOLOGY Eosinophils 0.1 0.0 - 0.5 02/08 MH # /2016 [facility] HEMATOLOGY Monocytes # 0.8 0.0 - 0.8 02/08 [facility] HEMATOLOGY Lymphocytes 3.1 1.0 - 5.5 02/08 MH # /2016 [facility] HEMATOLOGY Segs-Bands # 6.8 1.5 - 8.1 02/08 [facility] HEMATOLOGY Basophils 0.6 0.0 - 1.0 02/08 [facility] HEMATOLOGY Eosinophils 0.6 0.0 - 4.0 02/08 MH [facility] HEMATOLOGY Monocytes 7.7 2.0 - 12.0 02/08 [facility] HEMATOLOGY Lymphocytes 28.6 20.0 - 02/08 MH 40.0 /2015 [facility] HEMATOLOGY Segs 62.5 45.0 - 02/08 MH 75.0 /2016 [facility] CHEM PANEL Magnesium 2.0 1.8 - 2.4 02/07 Lvl [facility] ELECTROLYTES Chloride Lvl 103 95 - 109 02/07 [facility] ELECTROLYTES AGAP 8.4 10.0 - 02/07 MH 20.0 [facility] ELECTROLYTES Calcium Lvl 9.0 8.5 - 10.5 02/07 [facility] ELECTROLYTES CO2 28 24 - 32 02/07 [facility] ELECTROLYTES Glucose Lvl 114 70 - 99 02/07 [facility] ELECTROLYTES BUN 21 7 - 22 02/07 [facility] ELECTROLYTES Creatinine 1.52 0.50 - 02/07 MH Lvl 1.40 /2015 [facility] ELECTROLYTES Sodium Lvl 135 135 - 145 02/07 [facility] ELECTROLYTES Potassium 4.4 3.5 - 5.1 02/07 Lvl [facility] ELECTROLYTES eGFR 55 02/07 [facility] Comment: The [facility] eGFR is calculated using the CKD-EPI formula. [...] HEMATOLOGY Eosinophils 1.6 0.0 - 4.0 02/07 /2015 [facility] HEMATOLOGY Lymphocytes 3.4 1.0 - 5.5 02/07 MH # /2016 [facility] HEMATOLOGY Basophils 0.3 0.0 - 1.0 02/07 /2015 [facility] HEMATOLOGY Monocytes # 0.6 0.0 - 0.8 02/07 /2015 [facility] HEMATOLOGY Segs-Bands # 5.3 1.5 - 8.1 02/07 MH /2016 [facility] HEMATOLOGY Segs 56.3 45.0 - 02/07 MH 75.0 /2016 [facility] HEMATOLOGY Monocytes 6.0 2.0 - 12.0 02/07 /2015 [facility] HEMATOLOGY Lymphocytes 35.8 20.0 - 02/07 MH 40.0 /2016 [facility] HEMATOLOGY Eosinophils 0.2 0.0 - 0.5 02/07 MH # /2016 [facility] HEMATOLOGY Platelet 363 133 - 450 02/07 /2015 [facility] HEMATOLOGY MPV 6.3 7.4 - 10.4 02/07 /2015 [facility] HEMATOLOGY MCHC 33.0 32.0 - 02/07 MH 36.0 /2016 [facility] HEMATOLOGY RDW 13.3 11.5 - 02/07 MH 14.5 /2015 [facility] HEMATOLOGY Hct 41.9 42.0 - 02/07 MH 54.0 /2016 [facility] HEMATOLOGY MCV 86.1 80.0 - 02/07 MH 94.0 /2016 [facility] HEMATOLOGY RBC 4.87 4.70 - 02/07 MH 6.10 /2015 [facility] HEMATOLOGY Hgb 13.8 14.0 - 02/07 MH 18.0 /2016 [facility] HEMATOLOGY WBC 9.4 3.7 - 10.4 02/07 /2015 [facility] HEMATOLOGY MCH 28.4 27.0 - 02/07 MH 31.0 /2016 [facility] CHEM PANEL Phosphorus 2.4 2.5 - 4.5 02/06 /2015 [facility] CHEM PANEL Magnesium 2.0 1.8 - 2.4 02/06 Lvl /2015 [facility] SPECIAL Hgb A1C 6.9 <=5.6 % 02/05 CHEMISTRY /2016 [facility] CARDIAC proBNP 40 0 - 125 02/05 ENZYMES /2016 [facility] TOXICOLOGY Etoh (%) <0.003 02/05 /2015 [facility] TOXICOLOGY Ethanol Lvl <3 02/05 /2015 [facility] CARDIAC CK MB 1.2 0.5 - 3.6 02/05 ENZYMES /2015 [facility] CARDIAC Troponin-I <0.02 0.00 - 02/05 ENZYMES 0.40 /2016 [facility] CARDIAC Total CK 86 12 - 191 02/05 ENZYMES /2015 [facility] CARDIAC CK MB Index 1.4 0.0 - 2.5 02/05 ENZYMES /2016 [facility] HEMATOLOGY PTT 26.0 22.9 - 02/05 MH 35.8 /2016 [facility] HEMATOLOGY PT 13.0 12.0 - 02/05 MH 14.7 /2015 [facility] HEMATOLOGY INR 0.96 0.85 - 02/05 MH 1.17 /2015 [facility] CHEM PANEL Lipase Lvl 220 73 - 393 08/09 [facility] ELECTROLYTES AGAP 12.1 10.0 - 08/09 MH 20.0 /2015 [facility] ELECTROLYTES Globulin 4.0 2.0 - 4.0 08/09 [facility] ELECTROLYTES A/G Ratio 0.8 0.7 - 1.6 08/09 [facility] ELECTROLYTES B/C Ratio 12 6 - 25 08/09 [facility] ELECTROLYTES Bili Total 0.5 0.2 - 1.3 08/09 [facility] ELECTROLYTES Alk Phos 133 39 - 136 08/09 [facility] ELECTROLYTES AST 19 0 - 37 08/09 [facility] ELECTROLYTES eGFR 54 08/09 Result Comment: The [facility] eGFR is calculated using the CKD-EPI formula. [...] Albumin Lvl 3.4 3.5 - 5.0 08/09 [facility] ELECTROLYTES ALT 44 0 - 65 08/09 /2015 [facility] ELECTROLYTES Calcium Lvl 8.8 8.5 - 10.5 08/09 MH /2015 [facility] ELECTROLYTES CO2 23 24 - 32 08/09 /2015 [facility] ELECTROLYTES Total 7.4 6.4 - 8.4 08/09 MH Protein /2015 [facility] ELECTROLYTES Sodium Lvl 139 135 - 145 08/09 /2015 [facility] ELECT[facility] Potassium 4.1 3.5 - 5.1 08/09 [facility] Lvl /2016 [facility] Chloride Lvl 108 95 - 109 08/09 /2015 [facility] Glucose Lvl 187 70 - 99 08/09 /2015 [facility] BUN 18 7 - 22 08/09 /2015 [facility] Creatinine 1.56 0.50 - 08/09 [facility] Lvl 1.40 /2015 [facility]EMAT[facility] Eosinophils 0.3 0.0 - 0.5 08/09 [facility] # /2015 [facility] Segs-Bands # 7.8 1.5 - 8.1 08/09 /2015 [facility] Lymphocytes 1.4 1.0 - 5.5 08/09 [facility] # /2016 [facility] Monocytes # 0.7 0.0 - 0.8 08/09 /2015 [facility] Segs 76.7 45.0 - 08/09 [facility] 75.0 /2015 [facility] Lymphocytes 13.4 20.0 - 08/09 [facility] 40.0 /2015 [facility] Monocytes 7.2 2.0 - 12.0 08/09 /2015 [facility] Eosinophils 2.5 0.0 - 4.0 08/09 /2015 [facility] Basophils 0.2 0.0 - 1.0 08/09 /2015 [facility] MCHC 32.9 32.0 - 08/09 [facility] 36.0 /2015 [facility] RDW 13.9 11.5 - 08/09 [facility] 14.5 /2015 [facility] MCH 29.7 27.0 - 08/09 [facility] 31.0 /2015 [facility] MPV 6.9 7.4 - 10.4 08/09 /2015 [facility] Platelet 286 133 - 450 08/09 /2015 [facility] WBC 10.1 3.7 - 10.4 08/09 /2015 [facility] RBC 5.49 4.70 - 08/09 [facility] 6.10 /2015 [facility] MCV 90.3 80.0 - 08/09 [facility] 94.0 /2015 [facility] Hct 49.6 42.0 - 08/09 54.0 /2016 [facility] HEMATOLOGY Hgb 16.3 14.0 - 08/09 18.0 /2015 [facility] Pathology Reports No Data Provided for This Section Diagnostic Reports Report Value Date Source Chest 1view DX Clinical Indication: Abnormal chest sounds; 01/19 [facility] Comparison: 02/08/2016 FINDINGS: AP chest radiographs shows n ormal lung volumes with right basilar atelectasis versus infiltrate which has slightly worsened than the previous exam. The left lung field remains clear. There is no evidence of a pneumothorax.. The heart size and pulmonary vasculature are normal. The trachea is midline. There are no clinically significant osseous abnormalities noted. IMPRESSION: 1. Right lower lobe atelecta sis versus early infiltrate which has slightly worsened. SL: [id number] Scrotal/Testicle w Clinical Indication: Scrotal pain of unk nown origin 02/09/2016 [facility] Doppler US Comparison: CT of the abdomen and pelvis dated 1 04/11/2015. TECHNIQUE: Sonographic evaluation of th e scrotum and testes was performed using high resolution B-mode imaging as well as pulse and color Doppler imaging. FINDINGS: TESTES: The right testicle measures 4.9 x 2.9 x 2.2 cm. The left testicle measures 4.9 x 2.6 x 1.9 cm. There is normal bilateral te sticular contour and morphology. There are no testicular masses or testicular calcifications. The Doppler images of the testicles show normal blood flow. EPIDIDYMIDES: Bilateral epididymal head, body and tail regions are unremarkable. SCROTUM: There is no hydrocele. There is no evidence of varicoceles. There is no scrotal edema. IMPRESSION: Unremarkable testicular ultrasound with normal t esticular Doppler blood flow. SL: [id number] Abdomen/Pelvis wo IV Clinical Indication: Right l ower lobe mass, incarcerated hernia and severe inguinal pain. 02/09/[address] [facility] [address] Comparison: CTA chest 02/06/2016. TECHNIQUE: Helical imaging w as performed diaphragm through the symphysis with multiplanar reformations obtained. IV CONTRAST: None GI CONTRAST: None CT Radiation Dose DLP: 1070. 01 mGy-cm. DLP means Dose Length Product, a radiation dose metric that does not report individual patient dose, but is a reference value related to the radiation output of the scanner used for this exam. FINDINGS: Evaluation of the viscera is suboptimal without intravenous contrast. LUNG BASES: There is a parti ally imaged mass that occupies the middle mediastinum, right hilum, bronchus intermedius, which results in right lower lobe atelectasis/collapse, and groundglass airspace opacity of the right middle lobe. LIVER: Homogenous, without b order deforming lesion. A 1.7 cm hypodensity in segment 7 (series 2, image 19) does not measure simple fluid. This lesion enhances on the PE study, however this study, nor t he PE study is tailored to the evaluation of the liver. Biliary: No intrahepatic or extra hepatic biliar y dilatation. Gallbladder: Contains a single 2.1 cm stone. No pericholecystic abdomen only. SPLEEN: The spleen is normal in size. PANCREAS: The pancreas has a grossly normal nonc ontrast appearance. ADRENAL GLANDS: The adrenal glands are normal. KIDNEYS AND URETERS: No urol ithiasis, or hydroureteronephrosis. A 0.5 cm hypodensity in the posterior interpolar left kidney is too small to characterize. EG JUNCTION, STOMACH AND DUODENUM: Unremarkable Small bowel: Normal caliber. Large bowel: Redundant sigmoid colon. No pericol onic fat infiltration. Appendix: Normal. RETROPERITONEUM/PERITONEUM: There is no free flu id. No free air. LYMPH NODES: There are scatt ered lymph nodes in the fallon hepatis, aortocaval region, and paraaorta, the largest of which measures 1.2 cm (series 2, image 79). VASCULATURE: Abdominal aorta is normal in calibe r. BLADDER: The urinary bladder has a normal appearance given its degree of distention. MUSCULOSKELETAL: No acute os seous abnormality. Incidental 2.1 cm x 3.5 cm [...] abdomen and pelvis. 2. Right lower lobe atelecta sis secondary to an obstructing mass in the middle mediastinum/right hilum/bronchus intermedius. Groundglass airspace opacity in the right middle lobe may represent postobstructive pneumonia. 3. Indeterminant 1.7 cm hepa tic lesion (which enhances on the PE study) and scattered abdominal lymph nodes. These findings can be further assessed with a contrast enhanced CT, or PET CT. 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 The rest of the lung clark are clear. The cardiomediastinal silhouette is within normal limits. There are no clinically significant osseous abno rmalities noted. IMPRESSION: Unchanged right lower lobe pneumonic consolidati on. Chest Pulmonary Clinical Indication: Dyspnea on exertion , hemoptysis 02/06/2016 [facility] Comparison: None TECHNIQUE: Sequential trans- axial images were obtained with a multi-detector helical CT after iodinated contrast administration. Coronal and sagittal reconstructions were obtained. 3-D MIP reconstructions performed. 100 cc of Visipaque contrast material was used f or the exam. CT Radiation Dose DLP 565 mGy-cm FINDINGS: LUNG PARENCHYMA AND PLEURA: There is a 8.3 x 4.5 x 4.8 cm heterogeneous lobulated mass in the right infrahilar region invading the mediastinum and encircling the right middle and lower lobe pulmonary ar mk and associated bronchus . There is partial postobstructive atelectasis in the right lower lobe. Lobulated extension of tumor is seen within the right bronchus intermedius. Irregular reticulonodular opacities are seen in the ri ght middle and lower lobes. Findings are most consistent with large central lung neoplasm with possible endobronchial spread of tumor into right middle and lower lobes. There is calcified granuloma in t he left lung. No other left lung nodules are visualized. There are no pleural effusions. There is no pneumothorax. AIRWAY: The central airway is normal. MEDIASTINUM: There are subce ntimeter lymph nodes in the upper mediastinum and axilla. HEART: The heart size is wit hin normal limits. There are no coronary artery calcifications. There is no pericardial effusion. VASCULAR STRUCTURES: There a re no segmental pulmonary emboli noted. The main, right and left pulmonary arteries are normal. The great vessels are unremarkable. The thoracic aorta is normal in caliber wi th no atherosclerotic change . There is no thoracic aortic dissection or aneurysm. The superior vena cava is unremarkable. OSSEOUS STRUCTURES: There ar e no definite significant osseous abnormalities seen. VISUALIZED UPPER ABDOMEN: The visualized upper a bdomen is unremarkable. IMPRESSION: 1. No CT evidence of pulmonary embolism. 2. 8.3 x 4.5 x 4.8 cm hetero geneous lobulated mass in the right infrahilar region most consistent with large central lung neoplasm with partial postobstructive atelectasis in the right middle and lower lobes and concern for endobr onchial spread of tumor into right middle and lower lobes. Lobulated extension of tumor seen within right bronchus intermedius. SL: [id number] Chest 2 views DX Clinical Indication: Coughin g for one week, difficulty breathing. 02/06/2016 [facility] Comparison: 12/16/2012 FINDINGS: PA and lateral views of the chest have been prov ided. Right basilar infiltrate wit hout silhouetting of the right heart border likely represents a right lower lobe pneumonia. Heart size is normal. Central pulmonary vasculat ure appears normal. No effusion. No pneumothorax. Osseous structures demonstrate no acute abnormal ity. IMPRESSION: 1. Right lower lobe pneumonia SL: [id number] Abdomen RUQ US Clinical Indication: Abdominal pain, acute 08/09 [facility] Comparison: None TECHNIQUE: Grayscale and limited color sonographic evaluation of the right upper quadrant of the abdomen and gallbladder region was performed with standard technique. FINDINGS: This examination is mildly limited by bowel gas. LIVER: The visualized liver shows n ormal contour, size, and morphology with normal parenchymal echo texture. BILE DUCTS: The intrahepatic and extrahe patic bile ducts are not dilated with the common bile duct measuring 3 mm. GALLBLADDER: Multiple echogenic gallstone s are present within the gallbladder lumen, measuring up to approximately 2.5 cm in maximal diameter. There is no free pericholecystic fluid or gallbladder wall thickening. PANCREAS: The pancreas is not well-visualized secondary to overlying bowel gas. KIDNEY: The right kidney measures 8.5 x 3.4 x 3.4 cm. There is normal renal contou r and morphology, with normal parenchymal echotexture. There is no hydronephrosis. AORTA AND INFERIOR VENA CAVA: Visualized portions appear unremarkable. ASCITES: There is no right upper quadrant abdominal ascit es. IMPRESSION: 1. Echogenic gallstones iden tified within the gallbladder lumen. No gallbladder wall thickening or free pericholecystic fluid to suggest acute cholecystitis. May consider nuclear medicine HIDA scan for further evaluation if clinically indicated. SL: [id number] Consultation Notes No Data Provided for This Section Discharge Summaries No Data Provided for This Section History and Physicals No Data Provided for This Section Vital Signs Vital Sign Value Date Comments Source Temperature Oral (F) 98.3 F 02/10/2016 [facility] Rate 18 02/10/2016 [facility] Systolic (mm Hg) 116 02/10/2016 [facility] Diastolic (mm Hg) 85 02/10/[address] [facility] [address] Heart Rate 88 02/10/2016 [facility] Systolic (mm Hg) 126 02/10/2016 [facility] Diastolic (mm Hg) 69 02/10/[address] Respitory Rate 18 02/10/2016 [facility] Heart Rate 92 02/10/2016 [facility] Temperature Oral (F) 98.7 F 02/10/2016 [facility] Respitory Rate 18 02/10/2016 [facility] Systolic (mm Hg) 119 02/10/2016 [facility] Di[facility] (mm Hg) 78 [facility] 82 02/10/2016 [facility] Temperature Oral (F) 98.2 F 02/10/2016 [facility] BMI Calculated 33.38 02/06/2016 [facility] Height 152.4 cm 02/06/2016 [facility] Weight 77.528 02/06/2016 [facility] Weight 80.455 02/06/2016 [facility] BMI Calculated 34.64 02/06/2016 [facility] Height 152.4 cm 02/06/2016 [facility] Respitory Rate 16 08/10/2015 [facility] Systolic (mm Hg) 110 08/10/2015 [facility] Diastolic (mm Hg) 63 08/10/[address] Heart Rate 67 08/10/2015 [facility] Temperature Oral (F) 96.9 F 08/10/2015 [facility] Temperature Oral (F) 97.3 F 08/10/2015 [facility] Respitory Rate 18 08/10/2015 [facility] Heart Rate 72 08/10/2015 [facility] Systolic (mm Hg) 116 08/10/2015 [facility] Diastolic (mm Hg) 70 08/10/[address] Systolic (mm Hg) 111 08/10/2015 [facility] Diastolic (mm Hg) 82 08/10/[address] Temperature Oral (F) 97.5 F 08/10/2015 [facility] Heart Rate 114 08/10/2015 [facility] Respitory Rate 20 08/10/2015 [facility] Height 152.4 cm 08/10/2015 [facility] Weight 79.545 08/10/2015 [facility] BMI Calculated 34.25 08/10/2015 [facility] Weight 79.545 09/01/2014 [facility] BMI Calculated 33.13 09/01/2014 [facility] Temperature Oral (F) 98.5 F 09/01/2014 [facility] Heart Rate 104 09/01/2014 [facility] Respitory Rate 20 09/01/2014 [facility] Height 154.94 cm 09/01/2014 [facility] Systolic (mm Hg) 126 09/01/2014 [facility] Diastolic (mm Hg) 79 09/01/[address] Height 152.4 cm 04/01/2013 [facility] Weight 85.455 04/01/2013 [facility] Temperature Oral (F) 97.0 F 04/01/2013 [facility] Heart Rate 98 04/01/2013 [facility] Respitory Rate 16 04/01/2013 [facility] Systolic (mm Hg) 128 04/01/2013 [facility] Diastolic (mm Hg) 83 04/01/[address] Encounters Location Location Encounter Encounter Reason Attending ADM OR Stat us Source Details Type Number For Provider Date Date Visit Not Sent Emergency [id number] LOWER REGINA 04/01 04/01 [facility] [place] [facility] [place] [id number] Lazaro 09/21 09/21 [facility] Raya /2013 [facility] [place] [id number] Robert Chao 09/01 09/01 [facility]2014 [facility] [id number] Luke 08/09 08/09 [facility] Liz /[address] [facility] [id number] Chelita 02/05 02/09 [facility] Jaden /2015 [facility] Procedures No Data Provided for This Section Assessment and Plan Assessment and Plan Date Source Extracted from:Title: Progress Note * Dr. Cooper Pulmonary 01/19 [facility] Author: Home Cooper MD Date: 02/10/16 Impression and Plan large lung mass in a smoker..with postobstructive pna/hemopt ysis s/p bronchoscopy/bx...await path report gross exam suspicious for squamous.. continue antibiotics 02-09 bronch +NSCLC--adneocarcinoma will need molecular profile including EGFR, etc to see if ca ndidate for TKI complete antibiotics f/u with oncology [...] The patient presented with a 3 week hist ory of cough, initially dry. Associated with shortness of breath. Cough has being getting worse and for the last few days he is having bloody sputum, one tea spoo n of blood at times. He is being vomitin g every day for the last one week as well, 2-3 times per day. No hematemesis. He also states is being having watery stools, 4-5 times per day for the last one wee k. c/o right groin pain as well, worse with cough. c/o some chills, no fever. In the ER a CT scan shows a large mass i n the right infrahilar area, possible concomitant pneumonia as well. Past medical history: Hypertension Diabetes mellitus Hyperlipidemia Past surgical history: No prior surgeries. Family history: Unknown, patient was adopted. Social history: Used to smoke 2-3 ppd for 20 years, stop ped 6 months ago. No alcohol or illicit [...] 24 Hr Tmax: 97.5F (36.39c) at 02/05 12:3 3 Vital Signs are the last 5 in the past 48 hours. General: patient lying in bed in no distress. HEENT: MARY ALICE, EOMI. Neck: supple, no jvd. no thyromegaly. Chest: rales in right lung. Cardiovascular: rhythm, tachycardic. Abdomen: soft, non tender to palpation. Musculoskeletal: no peripheral edema. No joint swelling. 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 Skin: [...] 8.3 x 4.5 x 4.8 cm heterogeneous lobu lated mass in the right infrahilar region most consistent with large central lung neoplasm with partial postobstructive atelectasis in the right middle and lower lobes and concern for endobronchial spre ad of tumor into right middle and lower lobes. Lobulated extension of tumor seen within right bronchus intermedius. ASSESSMENT/PLAN: 1. Post-obstructive right lung pneumonia . Will start IV abx therapy. Will f/u clinially. Sputum cultures. 2. Hemoptysis. 2nd to lung mass. 3. Large right infrahilar mass, likely m alignancy. Consult ice puller for consideration of bronchoscopy. 4. DM2. Will get a1c. Start ISS. 5. Accelerated hypertension. Start IV hy dralazine prn. Start oral metoprolol. No ACEI due to renal failure. 6. Acute on chornic renal failure. Start on IVFs, avoid neph rotoxins. 7. VTE prophylaxis. SCDs. Encourage ambulation. 8. Ex-smoker. Plan of Care No Data Provided for This Section Social History Social History Date Source Social History TypeResponse 02/06/2016 [facility] Smoking Status Former smoker; Type: Cigarettes; Exposur e to Tobacco Smoke None; Cigarette Smoking Last 365 Days Unable to obtain; Reg Smoking Cessation Counseling No Family History No Data Provided for This Section Advance Directives No Data Provided for This Section Functional Status No Data Provided for This Section
--- OUTSIDE RECORDS SUMMARY | 2019-12-02 06:04 | XMS REPORT ---
:1970 Author Organization [facility] Address [address] 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 Problem Chronic J44.9 Active 67114283 obstructive pulmonary disease, unspecified COPD type Problem Secondary C79.51 Active 74722369 malignant neoplasm of bone Problem Malignant C34.90 Active 546760278 neoplasm of unspecified part of unspecified bronchus or lung Problem Type 2 diabetes E11.22 Active 694083982954 mellitus with diabetic chronic kidney disease Problem Vitamin D E55.9 Active 98547902 deficiency Problem Type 2 diabetes E11.65 Active 16333747 mellitus with hyperglycemia Problem Essential I10 Active 44845805 hypertension Problem Calculus of K80.20 Active 95638182 gallbladder without cholecystitis without obstruction Problem Non-small cell C34.91 Active 818282049 cancer of right lung Problem Mixed E78.2 Active 520451315 hyperlipidemia Problem CKD (chronic N18.3 Active 256259388 kidney disease) stage 3, GFR 30-59 ml/min Problem Right inguinal K40.90 Active 144105540 hernia ALLERGIES No Known Allergies ENCOUNTERS from 1970 to 2019-11-12 Encounter Location Date Provider Diagnosis [facility] [address] [place], [facility] annual Family Medicine [address] [place] [address] subsequent Z00 .00 IMMUNIZATIONS No Information SOCIAL HISTORY Tobacco Use: Social History Observation Description Date Details (start date - stop date) Former Smoker Sex Assigned At : Social History Observation Description Sex Assigned At Unknown Alcohol Screen Question Answer Notes Did you have a drink containing alcohol in the past year? No Points 0 Interpretation Negative Tobacco Use/Smoking Question Answer Notes Are you a former smoker REASON FOR REFERRAL No Information VITAL SIGNS Height 70 in Oct, Weight 197.3 lbs Oct, Temperature 98.4 degrees Fahrenheit Oct, BMI 28.31 kg/m2 Oct, Oximetry 100 % Oct, Blood pressure systolic 138 mm Hg Oct, Blood pressure diastolic 77 mm Hg Oct, MEDICATIONS Medication SIG (Take, Route, Frequency, Start Date End Date Status Duration) Lisinopril 20 MG TAKE 1 TABLET BY MOUTH ONCE Active DAILY Oral Once a day for 90 days Vitamin D (Ergocalciferol) TAKE 1 CAPSULE BY MOUTH ONCE Active 1.25 MG (53739 UT) A WEEK Oral Atorvastatin Calcium 20 MG TAKE 1 TABLET BY MOUTH ONCE Active DAILY Oral Once a day for 90 days Novolin 70/30 (70-30) 100 30 units in the morning , 40 Active UNIT/ML units in the evening Subcutaneous Once a day for 90 days PROCEDURES No Information RESULTS No Results REASON FOR VISIT [facility] MEDICAL (GENERAL) HISTORY Type Description Date Surgical History Brain surgery-tumor 2017 Goals Section No Information Health Concerns No Information MEDICAL EQUIPMENT No Information MENTAL STATUS No Information FUNCTIONAL STATUS No Information ASSESSMENTS Encounter Date Diagnosis Notes Oct, Medicare annual wellness visit, matt perez (ICD-10 - Z00.00) PLAN OF TREATMENT Medication Medication Name Sig Start Date Stop Date Lisinopril 20 MG TAKE 1 TABLET BY MOUTH ONCE DAILY Oral Once a day for 90 days Atorvastatin Calcium 20 MG TAKE 1 TABLET BY MOUTH ONCE DAILY Oral Once a day for 90 days Novolin 70/30 (70-30) 100 30 units in the morning , 40 UNIT/ML units in the evening Subcutaneous Once a day for 90 days Vitamin D (Ergocalciferol) 1.25 TAKE 1 CAPSULE BY MOUTH ONCE A MG (10486 UT) WEEK Oral Next Appt Details SUBSEQUENT ANNUAL WELLNESS VISIT 1 YEAR Reason: Provider Name:Ramon Harris 2020-02-01 1 1:00:00 AM, [address], [address], [place], [address], Provider Name:Ramon aHrris 2020-02-08 0 1:00:00 PM, [address], [place], [address], Insurance Providers Payer Name Payer Address Payer Insured Patient Coverage Cover age Phone Name Relationship to Start Date End Date Insured MEDICARE Attn Part B [id number] Suzie Mcpherson self 2018 [employer] Claims [phone] [facility] [id number]
--- OUTSIDE RECORDS SUMMARY | 2019-12-02 06:04 | XMS REPORT ---
:1970 Author Organization [facility] Address [address] [place], 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 mellitus with diabetic chronic kidney disease Problem Vitamin D E55.9 Active 06968354 deficiency Problem Type 2 diabetes E11.65 Active 31324504 mellitus with hyperglycemia Problem Essential I10 Active 62997195 hypertension Problem Calculus of K80.20 Active 57357729 gallbladder without cholecystitis without obstruction Problem Non-small cell C34.91 Active 531822184 cancer of right lung Problem Mixed E78.2 Active 169476395 hyperlipidemia Problem CKD (chronic N18.3 Active 818865652 kidney disease) stage 3, GFR 30-59 ml/min Problem Right inguinal K40.90 Active 137282229 hernia ALLERGIES No Known Allergies ENCOUNTERS from 1970 to 2019-11-12 Encounter Location Date Provider Diagnosis [facility] [place] [address] [place], Ramon Harris Type [address] [place], [facility] [address] hyperglycemia E11.65 ; Essential hyper tension I10 ; Right ing uinal hernia K40.90 ; Mixed hyperlipidemia E78.2 ; Non-small cell cancer of right lung C 34.91 ; Vitamin D defic iency E55.9 ; Seconda ry malignant neopl asm of bone C79.51 ; C hronic obstructive pul monary disease, unspec ified COPD type J44.9 ; retirement (current) use of insulin Z79.4 ; CKD (chronic kidney disease) stage 3, GFR 30-59 ml/min N1 8.3 ; Type 2 diabetes mellitus with d iabetic chronic kidney disease E11.22 ; Tobacc o use disorder, loki nuous F17.209 and César culus of gallbladder wit hout cholecystitis w ithout obstruction K80 .20 IMMUNIZATIONS No Information SOCIAL HISTORY Tobacco Use: [...] 28.31 kg/m2 Oct, Oximetry 100 % Oct, Respiratory Rate 16 /min Oct, Blood pressure systolic 138 mm Hg Oct, Blood pressure diastolic 77 mm Hg Oct, MEDICATIONS Medication SIG (Take, Route, Frequency, Start Date End Date Status Duration) Lisinopril 20 MG TAKE 1 TABLET BY MOUTH ONCE Active DAILY Oral Once a day for 90 days Vitamin D (Ergocalciferol) TAKE 1 CAPSULE BY MOUTH ONCE Active 1.25 MG (93750 UT) A WEEK Oral Atorvastatin Calcium 20 MG TAKE 1 TABLET BY MOUTH ONCE Active DAILY Oral Once a day for 90 days Novolin 70/30 (70-30) 100 30 units in the morning , 40 Active UNIT/ML units in the evening Subcutaneous Once a day for 90 days PROCEDURES No Information RESULTS No Results REASON FOR VISIT surgical clearance [phone] MEDICAL (GENERAL) HISTORY Type Description Date Surgical History Brain surgery-tumor 2017 Goals Section No Information Health Concerns No Information MEDICAL EQUIPMENT No Information MENTAL STATUS No Information FUNCTIONAL STATUS No Information ASSESSMENTS Encounter Date Diagnosis Notes Oct, Type 2 diabetes mellitus with diabetic c hronic kidney disease (ICD-10 - E11.22) Oct, CKD (chronic kidney disease) stage 3, GF R 30-59 ml/min (ICD-10 - N18.3) Oct, Essential hypertension (ICD-10 - I10) Oct, Calculus of gallbladder without cholecys titis without obstruction (ICD-10 - K80.20) Oct, Type 2 diabetes mellitus with hyperglyce cary (ICD-10 - E11.65) Oct, Tobacco use disorder, continuous (ICD-10 - F17.209) Oct, Secondary malignant neoplasm of bone (IC D-10 - C79.51) Oct, terminologist (current) use of insulin (ICD- 10 - Z79.4) Oct, Chronic obstructive pulmonary disease, u nspecified COPD type (ICD-10 - J44.9) Oct, Mixed hyperlipidemia (ICD-10 - E78.2) Oct, Right inguinal hernia (ICD-10 - K40.90) Oct, Vitamin D deficiency (ICD-10 - E55.9) Oct, Non-small cell cancer of right lung (ICD -10 - C34.91) PLAN OF TREATMENT Medication Medication Name Sig [...] 1 CAPSULE BY MOUTH ONCE A MG (36668 UT) WEEK Oral Treatment Notes Assessment Notes Clinical Notes Type 2 diabetes mellitus with Refill given. Labs ordered. hyperglycemia Uncontrolled at this time. Education given. Will titrate medication as tolerated., Diabetes Education Diabetes is a disorder that disrupts the way your body uses glucose (sugar). It is a chronic medication condition that requires regular monitoring and treatment throughout your life. Treatment includes: lifestyle modification, self-care measures, and medication. Fortunately, these treatments can keep the blood sugar levels close to normal and minimize the risk of developing complications. The primary blood test to measure the progress of diabetes is the Hemoglobin A1c. Normal levels is less than 7.0 but less than 6.5 is considered excellent control. Fasting blood sugars should be in the range of 80-120 while random blood sugars should range below 200 especially after meals. Carbohydrate (sugar) intake for diabetics should be below 45 grams per meal and 15 grams per snack. Diabetic preventive care is vital to prevent complications, so it is important to have yearly diabetic eye and foot exams with specialists. If your diabetes is not controlled, then contact your doctor to further address.Medication may need to be adjusted and/or added. Essential hypertension Increased to 20 mg once daily. Side effect panel discussed. Refill given. Will titrate as tolerated., DASH Diet discussed. Instructed to measure BP at home and bring in log to f/u appt. Instructions and logs given. Education given. , HTN Education This is a condition that puts at risk for heart attack, stroke, and kidney disease. Lifestyle modification, low fat/low salt diet, exercise, low alcohol intake and medication is utilized to help control your BP. Untreated HTN increases the strain on the heart and arteries, eventually causing organ damage.Normal BP is less than 140/90. High BP is greater than 140/90. If your BP is not controlled, call your doctor. Medication may need to be adjusted and/or added. Compliance with medication is vital. If you have chest pain, shortness of breath, severe nausea/vomiting, fatigue, and other symptoms, you will need to contact your doctor or go to the ER immediately to address. Right inguinal hernia Seen by general surgeon Dr. Tobias in the past. At this time patient has been medically optimized to proceed with elective surgery pending nephrology clearance. METS>4. Low to moderate CV risk. Further preoperative evaluation and protocol per anesthesiologist and general surgeon. Mixed hyperlipidemia . On Lipitor 20 mg and titrate as tolerated. Education given. Side effect discussed. , Hyperlipidemia Education: Hyperlipidemia refers to increased levels of lipids(fats) in the blood, including cholesterol and triglycerides. This can significantly increase your risk of developing coronary artery disease and peripheral artery disease. This can cause chest pain, heart attack, stroke, and fatigue. Treatment is recommended to decrease your risk. Treatment includes: lifestyle modification, low salt/low fat diet, exercise, tobacco cessation, low alcohol intake and sometimes medication. Blood tests (TC,TG, HDL, LDL) are utilized to determine treatment regimens. TC(Total cholesterol) should be below 200. TG(Total Triglycerides) should be below 150. HDL(Good cholesterol) should be above 40. LDL(Bad Cholesterol) should be below 130(if you have one risk factor) or less than 100( if you have more than one risk factor or have DM/CAD/PVD). Compliance with medication and treatment is vital. If you have questions, talk to your doctor. Non-small cell cancer of right . Managed by oncology. Medi césar lung release form signed. Vitamin D deficiency Discussed on causes of Vit D Def. Increase sunlight + Hydration + Exercise + Food High in Vit D and OTC supplements. Secondary malignant neoplasm of . Managed by oncology. Med ical bone records release form signed. Chronic obstructive pulmonary . Stable. No recent exacerbati on. disease, unspecified COPD type Encouraged on smoking cessati on. , COPD Education: This is condition in which the airways in the lungs become damaged, making it increasingly difficult for air to pass in and out. Symptoms may include: shortness of breath, chronic cough, chest pain, fatigue with exertion and other. Compliance with medication is vital to control the symptoms and to slow the progression of the disease. Symptoms of COPD cannot be completely eliminated with treatment. COPD usually worsens over time. If your symptoms acutely worsen, please contact the doctor. This may indicate a need to adjust and/or add medication. Pulmonary consultation maybe be required if symptoms do not improve. CKD (chronic kidney disease) stage . Was managed by nephrol carlos. 3, GFR 30-59 ml/min Encouraged to make follow-up appointment Tobacco use disorder, continuous Strongly encourged on cessa tion. Education given. Counseling given. Pick a quit date. , Education, counseling done at this visit, offered web sites and medicine to help. We did discussed not only the CAD risk also the risk for multiples cancers, peripheral neuropathy, etc. www.quit.com gives you tip[s and tricks, quit smoking chelist, download my quit edward and read quit smoking benefits too. More than 3 minutes were spent with patient. Will follow-up as well. Calculus of gallbladder without . Asymptomatic at this time . cholecystitis without obstruction Education given Treatment Notes Test Name Order Date Lipid Panel With LDL/HDL Ratio 2019-11-12 Thyroid Panel With TSH 2019-11-12 Microalbumin/Creat Ratio, Random Ur 2019-11-12 Hemoglobin A1c 2019-11-12 Comp. Metabolic Panel (14) (CMP) 2019-11-12 CBC With Differential/Platelet 2019-11-12 Vitamin D, 25-Hydroxy 2019-11-12 Next Appt Details 3 Months + Labs 1 week before Reason: Provider Name:Ramon Harris, 2020-02-01 1 1:00:00 AM, [address], [address], [place], [address], Provider Name:Ramon Harris, 2020-02-08 0 1:00:00 PM, [address], [address], [place], [address], Insurance Providers Payer Name Payer Address Payer Insured Patient Coverage Cover age Phone Name Relationship to Start Date End Date Insured MEDICARE Attn Part B [id number] Suzie Mcpherson self 2018 [employer] Claims [address] [place] [id number]
--- OUTSIDE RECORDS SUMMARY | 2019-12-02 06:04 | XMS REPORT ---
:1970 Author Organization [employer] Care Team Providers Name Role Phone Ramon Harris Provider Role Unavailable Allergies, Adverse Reactions, Alerts Substance Reaction Event Type N.K.D.A. Info Not Available Non Drug Allergy Problems Problem Type Condition Code Onset Dates Condition Statu s Assessment Calculus of gallbladder without K80.20 Active cholecystitis without obstruction Assessment Tobacco use disorder, continuous F17.209 Active Assessment Type 2 diabetes mellitus with E11.22 Active diabetic chronic kidney disease Problem jail (current) use of insulin Z79.4 Active Assessment CKD (chronic kidney disease) stage N18.3 Active 3, GFR 30-59 ml/min Problem Calculus of gallbladder without K80.20 Active cholecystitis without obstruction Assessment jail (current) use of insulin Z79.4 Active Problem Type 2 diabetes mellitus with E11.65 Active hyperglycemia Problem Malignant neoplasm of unspecified C34.90 Active part of unspecified bronchus or lung Problem Secondary malignant neoplasm of C79.51 Active bone Problem Vitamin D deficiency E55.9 Active Problem Right inguinal hernia K40.90 Active Assessment Vitamin D deficiency E55.9 Active Assessment Secondary malignant neoplasm of C79.51 Active bone Problem Essential hypertension I10 Activ e Assessment Chronic obstructive pulmonary J44.9 Active disease, unspecified COPD type Problem Non-small cell cancer of right lung C34.91 Active Problem Type 2 diabetes mellitus with E11.22 Active diabetic chronic kidney disease Problem CKD (chronic kidney disease) stage N18.3 Active 3, GFR 30-59 ml/min Problem Mixed hyperlipidemia E78.2 Active Assessment Right inguinal hernia K40.90 Active Assessment Essential hypertension I10 Activ e Assessment Non-small cell cancer of right lung C34.91 Active Assessment Mixed hyperlipidemia E78.2 Active Problem Tobacco use disorder, continuous F17.209 Active Problem Chronic obstructive pulmonary J44.9 Active disease, unspecified COPD type Assessment Type 2 diabetes mellitus with E11.65 Active hyperglycemia Medications Medication Code Code Instructions Start End Status Dosage System Date Date Atorvastatin [facility] [id number] 20 MG Oral Once Active TAKE 1 Calcium a day TABLET BY MOUTH ONCE DAILY Novolin 70/30 [facility] 08408018909 (70-30) 100 Active 30 units UNIT/ML in the Subcutaneous morning , Once a day 40 units in the evening Vitamin D [facility] 91737534041 1.25 MG (49182 Active KATYA E 1 (Ergocalciferol) UT) Oral CAPSUL E BY MOUTH ONCE A WEEK Lisinopril [facility] 64569801334 10 MG Oral Once Active T DAYNA 1 a day TABLET BY MOUTH ONCE DAILY Results No Known Results Summary Purpose [employer]Clinical[employer] Submission
--- OUTSIDE RECORDS SUMMARY | 2019-12-02 06:04 | XMS REPORT | Continuity of Care Document ---
:1970 Author Organization [facility] t Address [address] [place] [address] Care Team Providers Name Role Phone Terri Stanley Attending Clinician Jose David Hill Attending Clinician Camron Chao Attending Clinician Cody Raya Attending Clinician Terri Stanley Admitting Clinician Payers Payer Name Policy Type Policy Number Effective Date Expiration Date S ource Problems Condition Condition Condition Status Onset Resolution Last Treating Co mments Source Name Details Category Date Date Treatment Clinician Date VOMITTING, Diagnosis Active 2015-022017-01-31 Memoria COUGH WITH 2-19 20:01:00 l BLOOD 00:00: [place] VOMITTING, 00 COUGH WITH BLOOD Active 02/06/2016 [place] ABDOMINAL Diagnosis Active 2015-08-15 Memoria PAIN - 08:22:00 l 00:00: Mikey ABDOMINAL 00 PAIN Active 08/10/2015 [place] PINK EYE, Diagnosis Active 2014-09-01 Memoria CONGESTION - 00:48:00 l PINK 00:01: [place] EYE, 00 CONGESTION Active 08/31/2014 [place] EAR PAIN Diagnosis Active 2013-09-21 M emoria 8- 01:07:00 l EAR PAIN 00:00: Masood n 00 Active 09/20/2013 [facility] LOWER BACK Diagnosis Active 2013-2013-04-02 Memoria PAIN/ 2-11 10:08:00 l INJURY LOWER 10:30: [place] BACK PAIN/ 00 INJURY Active 03/31/2013 [facility] Abscess Problem Resolve 2016-02-13 Mem oria (disorder) d 01:54:11 l Abscess Mikey (disorder) Resolved Problem 02/13/2016 [facility] Diabetes Problem Resolve 2016-02-13 Me moria mellitus d 01:54:11 l (disorder) Diabetes He rmann mellitus (disorder) Resolved Problem 02/13/2016 [facility] Has seen Problem Resolve 2016-02-13 Me moria dietitian d 01:54:11 l - diabetes Has seen He rmann (finding) dietitian - diabetes (finding) Resolved Problem 02/13/2016 [facility] Hyperlipid Problem Resolve 2016-02-13 Memoria emia d 01:54:11 l (disorder) Masood n Hyperlipid emia (disorder) Resolved Problem 02/13/2016 [facility] Hypertensi Problem Resolve 2016-02-13 Memoria ve d 01:54:11 l disorder, [place] systemic Hypertensi arterial ve (disorder) disorder, systemic arterial (disorder) Resolved Problem 02/13/2016 [facility] Hernia of Problem Resolve 2016-02-13 M emoria abdominal d 01:54:11 l cavity Hernia [place] (disorder) of abdominal cavity (disorder) Resolved Problem 02/13/2016 [facility] OTHER Diagnosis Active 2017-01-31 Mem oria NONSPECIFI 20:01:00 l C ABNORMAL OTHER Venecia nn FINDING OF NONSPECIFI JEWELL C ABNORMAL FINDING OF JEWELL Active [place] Discharge Problem 2015-022016-02-13 2016-02-13 Memoria Diagnosis: 2- 01:54:11 01:54:11 l CAP 06:00: Mikey (community Discharge 00 acquired Diagnosis: pneumonia) CAP (community acquired pneumonia) 02/06/2016 02/13/2016 [place] Discharge Problem 2015-08-13 2015-08-13 Memoria Diagnosis: - 04:51:47 04:51:47 l Cholelithi 05:00: Masood pabon asis Discharge 00 Diagnosis: Cholelithi asis 08/10/2015 08/13/2015 [place] Discharge Problem 2015-08-13 2015-08-13 Memoria Diagnosis: 6- 04:51:47 04:51:47 l Abdominal 05:00: [place] pain Discharge 00 Diagnosis: Abdominal pain 08/10/2015 08/13/2015 [facility] Discharge Problem 2014-09-04 2014-09-04 Memoria Diagnosis: 7-14 03:09:01 03:09:01 l Conjunctiv 05:00: Masood n itis Discharge 00 Diagnosis: Conjunctiv itis 08/31/2014 09/04/2014 [facility] Allergies, Adverse Reactions, Alerts Allergy Allergy Status Severity Reaction(s) Onset Inactive Treating Comm ents Source Name Type Date Date Clinician iodine DA Active [facility] ziprasid DA Active [facility] one 06-05 [facility] 00:00: d 00 [facility] iodinate iodinate Active Memori a d d l radiocon radiocon Masood n trast trast dyes dyes Iodine Iodine Active Memoria Mild Mild l [place] Social History Social Habit Start Date Stop Date Quantity Comments Source Sex Assigned At [facility] Alcohol intake 2016-02-16 2016-02-16 Current [facility] 00:00:00 00:00:00 non-drinker of alcohol (finding) Smoking Status Start Date Stop Date Source Current every day smoker 2016-02-16 00:00:00 [facility] Social History 2016-02-06 10:51:15 2016-02-06 10:51:15 [facility] Medications Ordered Filled Start Stop Current Ordering Indication Dosage Frequency Signature Comments Components Source Medication Medication Date Date Medication? Clinician (SIG) Name Name acetaminoph 2015-02 Yes Hernia, 1{tbl} Take 1 [place] en-codeine inguinal, tablet by [facility] [employer] (TYLENOL/CO 00:00: right mouth DEINE #3) 00 every 4 300-30 mg hours as per tablet needed for Pain. Protonix 2015-02 No Notes: Memoria 2-23 Tablet l 22:30: should not Mikey 00 be chewed or crushed. (Same as: Protonix) Amoxicillin 2015-02 Yes 875 mg = 1 Memoria 875 MG / 2-23 tab, PO, l Clavulanate 19:48: Q12H, # 20 [place] 125 MG Oral 00 tab, 0 Tablet Refill(s) [Augmentin 875-mg] doxycycline 2015-02 No 100 mg = 1 Memoria monohydrate 2-23 tab, PO, l 100 mg oral 17:25: Q12H, X 10 Mikey tablet 00 day, # 20 tab, 0 Refill(s) Ciprofloxac 2015-02 Yes 500 mg = 1 Memoria in 500 MG 2-23 tab, PO, l Oral Tablet 17:25: Q12H, X 10 [place] [Cipro] 00 day, # 20 tab, 0 Refill(s) 200 ACTUAT 2015-02 Yes 2 puff, Shin elton Albuterol 2-23 INHALATION l 0.09 17:25: , Q6H, PRN [place] MG/ACTUAT 00 for Metered shortness Dose of breath Inhaler or wheezing, # 9 gm, 0 Refill(s) Acetaminoph 2015-02 Yes 1 tab, PO, Memoria en 325 MG / 2-23 Q6H, PRN l Hydrocodone 17:25: for pain, H ermann Bitartrate 00 # 30 tab, 10 MG Oral 0 Tablet Refill(s), [[place] given to ] patient tramadol 2015-02 Yes 50 mg, PO, Mem oria hydrochlori 2-23 Q6H, PRN l de 50 MG 17:25: Pain, X 7 Herm vonnie Oral Tablet 00 day, # 30 tab, 0 Refill(s) Levemir 2015-02 No Notes: Memoria FlexPen 2-23 Same as l 03:00: Levemir Do Mikey 00 not hold insulin without contacting prescriber WASTE: F/P - Black; E - Municipal Trash Bin "single patient use only" tramadol 2015-02 No Notes: Not Mem oria hydrochlori 2-23 to exceed l de 50 MG 00:56: 400mg/day. Her izquierdo Oral Tablet 00 (Same As: Ultram) Acetaminoph 2015-02 No Notes: Shin elton en 325 MG / 2-23 (Same as: l Hydrocodone 00:56: [place] Venecia nn Bitartrate 00 325/5) Do 5 MG Oral not exceed Tablet 4gm/day of acetaminop hen. Iohexol 2015-02 No 50 mL, Memoria 2-22 Route: PO, l 21:14: Drug Form: Mikey 00 SOLN, Dosing Weight 77.528, kg, ONCE, STAT, Start date: 02/09/16 15:14:00 [employer], Stop date: 02/09/16 15:14:00 [employer] Morphine 2015-02 No Notes: Memoria -22 (Same l 20:15: as:MORPhin e Sulfate) Insulin, 2015-02 No Notes: Memoria Aspart, 04-11 Roll in l Human 13:30: palms of hands gently; Do not shake vigorously . (Same as: NovoLOG) "single patient use only" WASTE: F/P - Black; E - Municipal Trash Bin Stable for 28 days at room temperatur e. Expires in days from ____Date Phenergan 2015-02 No 12.5 mg, Shin elton 2-21 50 mL, l 14:00: Route: IVPB, Drug form: SOLN, Q4H, Dosing Weight 77.528, kg, PRN Other -See Comment, Start date: 02/08/16 8:00:00 [employer], Duration: 30 day, Stop date: 03/09/16 7:59:00 [employer] Meperidine 2015-02 No Notes: Memor ia 2-21 (Same as: l 13:00: Demerol) "Use Precaution in Elderly, Seizure disorders, and Renal impairment " Diphenhydra 2015-02 No Notes: Shin elton mine 2-21 (Same as: l 13:00: Benadryl) Glycopyrrol 2015-02 No Notes: Shin elton ate 2-21 (Same as: l 13:00: Robinul) Naloxone 2015-02 No Notes: Memoria 2-21 Same as l 13:00: Narcan Albuterol 2015-02 No Notes: SEE Me moria 0.83 MG/ML 2-21 RT l Inhalant 13:00: DOCUMENTAT Her izquierdo Solution 00 ION MEDICATION WASTE Product Size: 2.5 mg Product Wasted: ___ mg Labetalol 2015-02 No Notes: Memori a 2-21 (Same as: l 13:00: NormodyneMikey Trandate) Push over 2 minutes Give bolus over 2-3 minutes. Hydralazine 2015-02 No Notes: Shin elton 2-21 (Same as: l 13:00: Apresoline ) Push over 5 minutes Oxycodone 2015-02 No Notes: Memori a 2-21 (Same as: l 13:00: Roxicodone ) Acetaminoph 2015-02 No Notes: Max Memoria en 04-10 acetaminop l 13:00: hen 4000 mg/day (4 gm/day). (Same as: Tylenol Extra Strength) Morphine 2015-02 No Notes: Memoria 2-21 (Same l 13:00: as:MORPhin e Sulfate) Metoprolol 2015-02 No Notes: Memor ia 2-21 (Same as: l 13:00: Lopressor) Push over 2 minutes Flumazenil 2015-02 No Notes: Memor ia 2-21 (Same as: l 13:00: Romazicon) Ondansetron 2015-02 No Notes: Shin elton -21 (Same as: l 13:00: Zofran) MEDICATION WASTE Product Size: 4 mg Product Wasted: ___ mg Promethazin 2015-02 No 6.25 mg, Me moria e 04-10 50 mL, l 13:00: Route: IVPB, Drug form: SOLN, ONCE, Dosing Weight 77.528, kg, PRN Nausea & Vomiting, Start date: 02/08/16 7:00:00 [employer] Dexamethaso 2015-02 No Notes: Shin elton ne - Concentrat l 13:00: ion: 4mg/ml Midazolam 2015-02 No Notes: Memori a 2-21 (Same as: l 13:00: Versed) MEDICATION WASTE Product Size: 2 mg Product Wasted: ___ mg Lidocaine 2015-02 No 5 mL, Memoria 04-10 Route: l 13:00: NEB, Drug Form: SOLN, Dosing Weight 77.528, kg, ONCE, Start date: 02/08/16 7:00:00 [employer], Stop date: 02/08/16 7:00:00 [employer] sodium 2015-02 No 1,000 mL, Memori a chloride 2-21 Rate: 40 l 0.9% 1000 12:52: ml/hr, Masood n ml INJ 00 Infuse 1,000 mL over: 25 hr, Route: IV, Dosing Weight 77.528 kg, Total Volume: 1,000, Start date: 02/08/16 6:52:00 [employer], Duration: 1 doses or times, Stop date: 02/09/16 7:51:00 [employer] azithromyci 2015-02 No Notes: Shin elton n 500 mg 2-20 Take 1 l oral tablet 22:00: hour Masood n 00 before or 2 hours after meals. (Same As: Zithromax) Robitussin- 2015-02 No Notes: Shin elton AC oral 2-20 (Same As: l syrup 15:26: Robitussin Masood n 00 AC) Tessalon 2015-02 No Notes: Memoria Perles 2-20 (Same As: l 04:00: Tessalon [place] 00 Perles) "Do Not Crush" metoprolol 2015-02 No Notes: Memor ia tartrate 2-20 (Same as: l 03:00: Lopressor) Mikey 00 Levemir 2015-02 No Notes: Memoria FlexPen 2-20 Same as l 03:00: Levemir Do Imkey 00 not hold insulin without contacting prescriber WASTE: F/P - Black; E - Municipal Trash Bin "single patient use only" Protonix 2015-02 No Notes: For Mem oria 2-19 IV push l 22:30: reconstitu [place] 00 te with 10 ml 0.9% sodium chloride and push over 2 minutes. (Same as: Protonix) Hydralazine 2015-02 No Notes: Shin elton 2-19 (Same as: l 21:03: Apresoline Mikey 00 ) Push over 5 minutes Robitussin- 2015-02 No Notes: Shin elton AC oral 2-19 (Same As: l syrup 21:01: Robitussin Masood n 00 AC) Insulin, 2015-02 No Notes: Memoria Aspart, 2-19 Roll in l Human 20:51: palms of Mikey 00 hands gently; Do not shake vigorously . (Same as: NovoLOG) "single patient use only" WASTE: F/P - Black; E - Municipal Trash Bin Stable for 28 days at room temperatur e. Expires in days from ____Date Glucagon 2015-02 No 1 mg, Memoria 2-19 Route: IM, l 20:51: Drug form: [place] 00 PDR/INJ, PRN, Dosing Weight 80.455, kg, PRN Blood Glucose Results, Start date: 02/06/16 14:51:00 [employer], Duration: 30 day, Stop date: 03/07/16 14:50:00 [employer] E[employer] ASSOCIATE Dextrose 2015-02 No 25 gm, 50 Shin elton 50% Syringe 2-19 mL, Route: l 20:51: IVP, Drug Form: INJ, Dosing Weight 80.455, kg, PRN, PRN Blood Glucose Results, Start date: 02/06/16 14:51:00 [employer] ASSOCIATE, Duration: 30 day, Stop date: 03/07/16 14:50:00 [employer] EQU[employer] ASSOCIATE Ceftriaxone 2015-02 No Notes: Shin elton 2-19 (Same As: l 20:00: Rocephin). Use with 100 mL NS and infuse over 30 min MEDICATION WASTE Product Size: 2000 mg Product Wasted: ___ mg Azithromyci 2015-02 No Notes: Shin elton n 2-19 (Same As: l 20:00: Zithromax IV) Saline 2015-02 No Notes: Memoria Flush 0.9% 2-19 (Same as: l 19:17: BD Mikey 00 Posiflush) Sodium 2015-02 No 1,000 mL, Memori a Chloride 2-19 Rate: 100 l 0.154 19:17: ml/hr, Mikey MEQ/ML 00 Infuse Injectable over: 10 Solution hr, Route: IV, Dosing Weight 80.455 kg, Total Volume: 1,000, Start date: 02/06/16 13:17:00 [employer] E[employer] ASSOCIATE, Duration: 30 day, Stop date: 03/07/16 13:16:00 [employer]IVATE EQUITY ASSOCIATE Acetaminoph 2015-02 No Notes: Do M emoria en 2-19 not exceed l 19:17: 4 gm/day. Mikey 00 (Same as: Tylenol) Acetaminoph 2015-02 No Notes: Shin elton en 325 MG / - (Same as: l Hydrocodone 19:17: [place] Venecia nn Bitartrate 00 325/5) Do 5 MG Oral not exceed Tablet 4gm/day of acetaminop hen. Morphine 2015-02 No Notes: Memoria 2-19 (Same l 19:17: as:MORPhin Mikey 00 e Sulfate) Docusate 2015-02 No Notes: Memoria 2-19 (Same as: l 19:17: Colace) [place] 00 (Do Not Crush) Ondansetron 2015-02 No Notes: Shin elton 2-19 (Same as: l 19:17: Zofran) Mikey 00 MEDICATION WASTE Product Size: 4 mg Product Wasted: ___ mg Fentanyl 2015-02 No Notes: Memoria 2- (Same as: l 17:47: Sublimaze) Mikey 00 Preservat arnaud free. 200 ACTUAT 2015-02 Yes 2 puff, Shin elton Albuterol -19 INHALATION l 0.09 13:10: , QID, PRN Mikey MG/ACTUAT 00 for Metered wheezing / Dose coughing, Inhaler # 25 gm, 0 Refill(s) Codeine 2015-02 No 10 ml, PO, Shin elton Phosphate 2 -19 Q4H, PRN l MG/ML / 13:10: for cough, Herm vonnie Guaifenesin 00 X 5 day, # 20 MG/ML 300 mL, 0 Oral Refill(s) Solution [Cheratussi n] Levofloxaci 2015-02 Yes 750 mg = 1 Memoria n 750 MG 2-19 tab, PO, l Oral Tablet 13:10: Q24H, X 10 Mikey [Levaquin] 00 day, # 10 tab, 0 Refill(s) benzonatate 2015-02 Yes 200 mg = 1 Memoria 200 MG Oral 2-19 cap, PO, l Capsule 13:10: TID, X 7 Masood n [Tessalon] 00 day, # 21 cap, 0 Refill(s) Levaquin 2015-02 No Notes: Memoria 2-19 (Same l 11:55: as:Levaqui Mikey 00 n) Sodium 2015-02 No 1,000 mL, Memori a Chloride 2-19 1,000 l 0.154 11:34: ml/hr, Mikey MEQ/ML 00 Infuse Injectable Over: 1 Solution hr, Route: IV, 1,000, Drug form: INJ, ONCE, Priority: STAT, Dosing Weight 80.455 kg, Start date: 02/06/16 5:34:00 [employer] EQU[employer] ASSOCIATE, Duration: 1 doses or times, Stop date: 02/06/16 5:34:00 [employer]IVATE EQUITY ASSOCIATE Acetaminoph 2015-02 No Notes: Do M emoria en 300 MG / 2-19 not exceed l Codeine 10:53: 4gm/day of Herm vonnie Phosphate 00 acetaminop 30 MG Oral hen. Tablet (Same as: [Tylenol Tylenol with with Codeine #3] Codeine # 3) methylPREDN 2015-02 No Notes: Shin elton ISolone 2-19 (Same l SODium 10:52: as:Solu-ME Venecia nn SUCCinate 00 DROL, A-Methapre d) Diphenhydra 2015-02 No Notes: Shin elton mine 2-19 (Same as: l 10:52: Benadryl) Mikey 00 Famotidine 2015-02 No Notes: Memor ia 2-19 (Same as: l 10:52: Pepcid) [place] 00 Can be dilute in 5-10cc NS IVP: Slow IV push over at least 2 minutes. 12 HR 2015-02 No Notes: Memoria Chlorphenir 2-19 (chlorphen l amine 10:46: iramine-hy Masood n Maleate 1.6 00 drocodone MG/ML / 8-10mg/5ml Hydrocodone LIQ) Bitartrate Non-formul 2 MG/ML jamal drug. Extended (Same As: Release Tussionex Suspension [employer] [Tussionex c) [employer] ER] Prednisone 2015-02 No Notes: Memor ia 2-19 Take with l 10:46: food. Mikey 00 Albuterol 2015-02 No Notes: Memori a 0.833 MG/ML -19 (Same as: l / 10:46: Duoneb) [place] Ipratropium 00 [place] 0.167 MG/ML Inhalant Solution [DuoNeb] Saline 2015-02 No Notes: Memoria Flush 0.9% 2-19 (Same as: l 10:45: BD Posiflush) Ondansetron 2016-0 Yes 4 mg = 1 Me moria 4 MG 6-22 tab, PO, l Disintegrat 22:34: TID, Masood n ing Tablet 00 Dissolve [Zofran] tab under tongue, X 3 day, # 9 tab, 0 Refill(s) Dicyclomine Yes 10 mg = 1 M emoria Hydrochlori 6-22 cap, PO, l de 10 MG 22:33: QID-Before Her izquierdo Oral 00 Meals, # Capsule 28 cap, 0 [Bentyl] Refill(s) tramadol Yes 50 mg = 1 Shin elton hydrochlori 6-22 tab, PO, l de 50 MG 22:33: BID, X 5 Venecia nn Oral Tablet 00 day, # 10 tab, 0 Refill(s) Morphine 0 No 4 mg, Memoria 6-22 Route: l 20:48: IVP, ONCE, Dosing Weight 79.545, kg, Priority: STAT, Start date: 08/10/15 15:48:00 CDT, Stop date: 08/10/15 15:48:00 CDT Ondansetron 0 No 4 mg, Memor ia 08-09 Route: l 20:48: IVP, ONCE, Dosing Weight 79.545, kg, Priority: STAT, Start date: 08/10/15 15:48:00 CDT, Stop date: 08/10/15 15:48:00 CDT Saline 0 No Notes: Memoria Flush 0.9% 08-09 (Same as: l 20:48: BD Posiflush) Sodium 0 No 1,000 mL, Memori a Chloride 08-09 2,000 l 0.154 20:48: ml/hr, Mikey MEQ/ML 00 Infuse Injectable Over: 30 Solution minutes, Route: IV, ONCE, Priority: STAT, Dosing Weight 79.545 kg, Start date: 08/10/15 15:48:00 CDT, Duration: 1 doses or times, Stop date: 08/10/15 15:48:00 CDT bacitracin- 0 No 1 appl, Mem oria polymyxin B 7-15 BOTH EYES, l ophthalmic 05:00: QID, # 3 Her izquierdo ointment 00 gm, 0 Refill(s) Motrin 800 Yes Talon Josh 800 mg = 1 Memoria mg oral 2-12 [place] tab, PO, l tablet 22:26: Q8H, Pain, Venecia nn 00 Take with food, # 30 tab, 0 Refill(s)T ihsan with food acetaminoph Yes Talon Josh 1-2 tab, Memoria en-hydrocod 2-12 [place] PO, Q4-6H, l one 325 22:26: Pain, # 15 Herm vonnie mg-5 mg 00 tab, 0 oral tablet Refill(s) [place] 5/325 No Talon Josh 2 tab, Memoria oral tablet 2-12 [place] Route: PO, l 21:42: Drug Form: Mikey 00 TAB, Dosing Weight 85.455, kg, ONCE, Start date: 04/01/13 15:42:00, Stop date: 04/01/13 15:42:00(S ej as: [place] 325/5) Do not exceed 4gm/day of acetaminop hen. Motrin No Talon Josh 800 mg, 2 Me moria -12 [place] tab, l 21:42: Route: PO, [place] 00 Drug form: TAB, ONCE, Dosing Weight 85.455, kg, Priority: STAT, Start date: 04/01/13 15:42:00, Stop date: 04/01/13 15:42:00(S ej as: Motrin) "Do Not Crush" Give with food. Atorvastati Atorvastati Yes Ramon TAKE [address] [facility] n Calcium n Calcium [facility] TABLET BY [facility] - MOUTH ONCE Memoria DAILY l [facility] ent Clinics Novolin Novolin Yes Ramon [address] [facility] [address] 70/30 70/30 [facility] in the [facility] - morning , Memoria 40 units l in the Outpati evening ent Clinics Vitamin D Vitamin D Yes Ramon TAKE [address] (Ergocalcif (Ergocalcif [facility] CAPSULE BY [facility] - mirian) mirian) MOUTH ONCE Memoria A WEEK [facility] ent Clinics Lisinopril Lisinopril Yes Ramon TAKE [address] [facility] TABLET BY [facility] - MOUTH ONCE Memoria DAILY [facility] ent Clinics Vital Signs Vital Name Observation Time Observation Value Comments Source Temperature Oral (F) 2016-02-10 18:00:00 98.3 F [facility] Mikey Respitory Rate 2016-02-10 18:00:00 Memori al Mikey Systolic (mm Hg) 2016-02-10 18:00:00 Shin rial [place] Diastolic (mm Hg) 2016-02-10 18:00:00 Mem orial Mikey Heart Rate 2016-02-10 18:00:00 [facility] [place] Systolic (mm Hg) 2016-02-10 13:00:00 Shin rial Mikey Diastolic (mm Hg) 2016-02-10 13:00:00 Mem orial Mikey Respitory Rate 2016-02-10 13:00:00 Memori al Mikey Heart Rate 2016-02-10 13:00:00 [facility] [place] Temperature Oral (F) 2016-02-10 13:00:00 98.7 F [facility] Mikey Respitory Rate 2016-02-10 06:22:00 Memori al [place] Systolic (mm Hg) 2016-02-10 06:22:00 Shin rial Mikey Diastolic (mm Hg) 2016-02-10 06:22:00 Mem orial [place] Heart Rate 2016-02-10 06:22:00 [facility] [place] Temperature Oral (F) 2016-02-10 06:22:00 98.2 F [facility] Mikey BMI Calculated 2016-02-06 21:11:00 Memori al [place] Height 2016-02-06 21:11:00 152.4 cm [facility] Mikey Weight 2016-02-06 21:11:00 [facility] [place] Weight 2016-02-06 10:47:00 [facility] [place] BMI Calculated 2016-02-06 10:47:00 Memori al [place] Height 2016-02-06 10:47:00 152.4 cm [facility] Mikey Respitory Rate 2015-08-10 22:56:00 Memori al [place] Systolic (mm Hg) 2015-08-10 22:56:00 Shin rial Mikey Diastolic (mm Hg) 2015-08-10 22:56:00 Mem orial [place] Heart Rate 2015-08-10 22:56:00 [facility] [place] Temperature Oral (F) 2015-08-10 22:56:00 96.9 F [facility] Mikey Temperature Oral (F) 2015-08-10 21:33:00 97.3 F [facility] Mikey Respitory Rate 2015-08-10 21:33:00 Memori al [place] Heart Rate 2015-08-10 21:33:00 [facility] Mikey Systolic (mm Hg) 2015-08-10 21:33:00 Shin rial [place] Diastolic (mm Hg) 2015-08-10 21:33:00 Mem orial [place] Systolic (mm Hg) 2015-08-10 20:22:00 Shin rial [place] Diastolic (mm Hg) 2015-08-10 20:22:00 Mem orial Mikey Temperature Oral (F) 2015-08-10 20:22:00 97.5 F [facility] [place] Heart Rate 2015-08-10 20:22:00 [facility] [place] Respitory Rate 2015-08-10 20:22:00 Memori al [place] Height 2015-08-10 20:22:00 152.4 cm [facility] [place] Weight 2015-08-10 20:22:00 [facility] [place]key BMI Calculated 2015-08-10 20:22:00 Memori al [place] Weight 2014-09-01 04:43:00 [facility] [place] BMI Calculated 2014-09-01 04:43:00 Memori al [place] Temperature Oral (F) 2014-09-01 04:43:00 98.5 F [facility] [place] Heart Rate 2014-09-01 04:43:00 [facility] [place] Respitory Rate 2014-09-01 04:43:00 Memori al [place] Height 2014-09-01 04:43:00 154.94 cm [facility] [place] Systolic (mm Hg) 2014-09-01 04:43:00 Shin rial [place] Diastolic (mm Hg) 2014-09-01 04:43:00 Mem orial [place] Height 2013-04-01 21:10:00 152.4 cm [facility] Mikey Weight 2013-04-01 21:10:00 [facility] [place] Temperature Oral (F) 2013-04-01 21:10:00 97.0 F [facility] [place] Heart Rate 2013-04-01 21:10:00 [facility] [place] Respitory Rate 2013-04-01 21:10:00 Memori al Mikey Systolic (mm Hg) 2013-04-01 21:10:00 Shin rial Mikey Diastolic (mm Hg) 2013-04-01 21:10:00 Mem orial [place] Procedures This patient has no known procedures. Plan of Care Planned Activity Planned Date Details Comments Source Future Scheduled Test 2019-11-19 00:00:00 IMM Influenza [facility] Seasonal Nov to April (>/= 19 yrs) [code = IMM Influenza Seasonal Nov to April (>/= 19 yrs)] Encounters Start End Encounter Admission Attending Care Care Encounter Source Date/Time Date/Time Type Type Clinicians Facility Department ID 2019-11-11 2019-11-[address] [facility] [id number] [facility] 2019-11-11 2019-11-11 Out[facility] [id number] [facility] 2019-10-28 2019-10-28 [facility] [id number] [facility] 13:20:00 13:20:00 [facility] l Medicine Outpati ent Clinics 2019-08-07 2019-08-07 [facility] [id number] [address] 10:43:00 10:43:00 [facility] Family Medicine l Medicine Outpati ent Clinics 2019-07-06 2019-07-06 [facility] [id number] 14:00:00 14:00:00 [facility] l Medicine Outpati ent Clinics 2016-02-06 2016-02-10 Outpatient Jaden [facility] [id number] 04:32:00 15:10:00 Chelita Monreal 2015-08-10 2015-08-10 Outpatient Liz [facility] [id number] 15:16:00 18:08:00 Luke 09 Jose David 2014-08-31 2014-09-01 Outpatient Robert Chao [facility] [id number] 23:03:00 00:10:00 Camron Banks 2013-09-20 2013-09-21 Outpatient DONNELL Raya JACE [id number] 23:13:00 00:19:00 Lazaro Ross 2013-04-01 2013-04-01 [facility] [id number] Results Test Description Test Time Test Comments Results Result Comments Source UA RFLX MICR CULT IF INDICATED 2018-06-05 16:41:00 Test Item Value Reference Range Interpretation Comme nts UA COLOR (test code = COLU) Straw Yellow UA APPEARANCE (test code = Clear Clear APPU) UA GLUCOSE DIPSTICK (test code >=500 (3+) Negative A = DGLUU) UA BILIRUBIN DIPSTICK (test Negative Negative code = BILU) UA KETONE DIPSTICK (test code Negative mg/dL Negative = KETU) UA SPECIFIC GRAVITY (test code 1.015 <1.030 = SGU) UA BLOOD DIPSTICK (test code = 1+ Negative A CARO) UA PH DIPSTICK (test code = 6.0 5.0-8.0 MABEL) UA PROTEIN DIPSTICK (test code 30 (1+) mg/dL Negative A = PROU) UA UROBILINOGEN DIPSTICK (test Negative mg/dL Negative code = URO) UA NITRITE DIPSTICK (test code Negative Negative = MARCELA) UA LEUKOCYTE ESTERASE DIPSTICK NEGATIVE Negative (test code = LEUU) UA WBC (test code = WBCUR) 0-3 /HPF <4-5 < 10 WBC/HPF = PYURIA ABSENT URINE CULTURE NOT IND ICATED UA RBC (test code = RBCU) 0-3 /HPF <4-5 UA BACTERIA (test code = BACU) NONE SEEN /HPF None-Rare UA SQUAMOUS CELLS (test code = 0-5 (RARE) /HPF 0-5 (RARE) SQU) less than 18 yrs old, neutropenic, or urological surgery? NOPrimary Indication for Culture: OtherOther Indication: ED PATIENTUA RFLX MICR CULT IF INDICATED 2018-06-05 16:32:00 Test Item Value Reference Range Interpretation Comments UA COLOR (test code = COLU) Straw Yellow UA APPEARANCE (test code = Clear Clear APPU) UA GLUCOSE DIPSTICK (test code >=500 (3+) Negative A = DGLUU) UA BILIRUBIN DIPSTICK (test Negative Negative code = BILU) UA KETONE DIPSTICK (test code Negative mg/dL Negative = KETU) UA SPECIFIC GRAVITY (test code 1.015 <1.030 = SGU) UA BLOOD DIPSTICK (test code = 1+ Negative A CARO) UA PH DIPSTICK (test code = 6.0 5.0-8.0 MABEL) UA PROTEIN DIPSTICK (test code 30 (1+) mg/dL Negative A = PROU) UA UROBILINOGEN DIPSTICK (test Negative mg/dL Negative code = URO) UA NITRITE DIPSTICK (test code Negative Negative = MARCELA) UA LEUKOCYTE ESTERASE DIPSTICK NEGATIVE Negative (test code = LEUU) UA WBC (test code = WBCUR) /HPF 0-3 UA RBC (test code = RBCU) /HPF 0-3 UA BACTERIA (test code = BACU) /HPF NEGATIVE less than 18 yrs old, neutropenic, or urological surgery? NOPrimary Indication for Culture: OtherOther Indication: ED PATIENTPROCALCITONIN (PCT)2018-06-05 15:31:00 Test Item Value Reference Range Interpretation Comments PROCALCITONIN (PCT) < 0.05 NG/ML (test code = PROCAL) Procalcito wayne (PCT) Normal Va lue: <0.05 NG/ML <0. 5 NG/ML - low risk of s evere sepsis and/or s eptic shock>2.0 NG/ML - high risk of severe sepsis and/or septic s hock PCT concentrations between 0.5 and 2.0 NG/ ML should beinterp reted taking into acc ount the patient's histo ry.It is recommended to retest PCT within 6-24 hours if anyconcentra tions between 0.5-2.0 NG/ML are obtained. - CT HEAD/BRAIN W/O [id number] 15:20:00 FAX: Colleen Mckenzie MD [phone] [place]: St: REG Name: MICHELLE FISHER : 1970 Age/S: 48/M [address] Unit: [id number] Loc: [place] [address] Phys: Colleen Mckenzie MD Acct: [id number] Dis Date: Status: REG ER PHONE #: [phone] Exam Date: 06/05/2018 1510 FAX #: [phone] Reason: june, h/o brain ca EXAMS: CPT CODE: [id number] CT HEAD/BRAIN W/O CONT [id number] Location: T18 CT head, 06/05/18 COMPARISON EXAMS:None of the brain TECHNIQUE: CT examination of the brain was performed without contrast on a helical scanner. Scanning conducted from skull base to vertex in the axial plane acquiring contiguous 5mm slice thickness . The examination was performed on a [facility] at helical CT scanner utilizing low-dose radiation technique. [...] No definite findings for recurrent lesion. No space- occupying processes or intracranial hemorrhage. PAGE 1 Signed Report (CONTINUED) FAX: Colleen Mckenzie MD [phone] [place]: St: REG Name: MICHELLE FISHER [facility] Ahsan : 1970 Age/S: 48/M [address] Unit: [id number] Loc: [place] [address] Phys: Colleen Mckenzie MD Acct: [id number] Dis Date: Status: REG ER PHONE #: [phone] Exam Date: 06/05/2018 0590 FAX #: [phone] Reason: june, h/o brain ca EXAMS: CPT CODE: [id number] CT HEAD/BRAIN W/O CONT [id number] <Continued> at 1520 Reported and signed by: Janeen Chacon MD CC: Colleen Mckenzie MD Technologist: CHIDI KATZ Trnscrd Dt/Tm: 06/05/2018 (1520) [email or web address] Orig Print D/T: S: 06/05/2018 (1523 PAGE 2 Signed ReportBASIC METABOLIC [id number] 15:18:00 Test Item Value Reference Range Interpretation Comments SODIUM (test code = 138 mmol/L 137-145 N NA) POTASSIUM (test code 4.3 mmol/L 3.4-5.0 N = K) CHLORIDE (test code = 108 mmol/L 98-107 H CL) CARBON DIOXIDE (test 18 mmol/L 22-30 L code = CO2) GLUCOSE (test code = 347 mg/dL 74-106 H GLU) BLOOD UREA NITROGEN 20 mg/dL 9-20 N (test code = BUN) GLOMERULAR FILTRATION 43 >60 L The es timated RATE (test code = glomerular filtration GFR) rate is compute d usingpatient ra ce, age (>18), sex, and serum creatinine. If anyof the needed data elements are mi ssing the Laboratory cannot compute an tevin mation of the glomerul ar filtration rate . CREATININE (test code 1.8 mg/dL 0.7-1.3 H = CREAT) CALCIUM (test code = 9.3 mg/dL 8.4-10.2 N CA) LIVER FUNCTION [id number] 15:18:00 Test Item Value Reference Range Interpretation Comments TOTAL PROTEIN (test 7.0 g/dL 6.3-8.2 N code = PROT) ALBUMIN (test code = 4.0 g/dL 3.5-5.0 N ALB) BILIRUBIN TOTAL (test 0.3 mg/dL 0.2-1.3 N code = BILT) BILIRUBIN CONJUGATED 0 mg/dL 0-0.3 N ~~~~~~~ ~~~~~~~~~~~~~~ (test code = BILCON) ~~~~~~~ ~~~~~~~~~~~~~~ ~~~~~~~~~~~~~~~ ~~~CON JUGATED BILIRUB IN IS THE REPLACEMENT ASSAY FOR DIRECTBILIRUBIN .~~~~~ ~~~~~~~~~~~~~~~ ~~~~~~ ~~~~~~~~~~~~~~~ ~~~~~~ ~~~~~~~~~~~~~ BILIRUBIN UNCONJUGATED 0 mg/dL 0-1.1 N (test code = BILUNC) SGOT/AST (test code = 21 U/L 15-46 N AST) SGPT/ALT (test code = 31 U/L 13-69 N ALT) ALKALINE PHOSPHATASE 130 U/L 38-126 H (test code = ALKP) [id number] 15:18:00 Test Item Value Reference Range Interpretation Comments LIPASE (test code = LIP) 133 U/L 23-300 N BASIC METABOLIC [id number] 15:16:00 Test Item Value Reference Range Interpretation Comments SODIUM (test code = 138 mmol/L 137-145 N NA) POTASSIUM (test code 4.3 mmol/L 3.4-5.0 N = K) CHLORIDE (test code = 108 mmol/L 98-107 H CL) CARBON DIOXIDE (test 18 mmol/L 22-30 L code = CO2) GLUCOSE (test code = 347 mg/dL 74-106 H GLU) BLOOD UREA NITROGEN 20 mg/dL 9-20 N (test code = BUN) GLOMERULAR FILTRATION 43 >60 L The es timated RATE (test code = glomerular filtration GFR) rate is compute d usingpatient ra ce, age (>18), sex, and serum creatinine. If anyof the needed data elements are mi ssing the Laboratory cannot compute an tevin mation of the glomerul ar filtration rate . CREATININE (test code 1.8 mg/dL 0.7-1.3 H = CREAT) CALCIUM (test code = 9.3 mg/dL 8.4-10.2 N CA) LIVER FUNCTION [id number] 15:16:00 Test Item Value Reference Range Interpretation Comments TOTAL PROTEIN (test 7.0 g/dL 6.3-8.2 N code = PROT) ALBUMIN (test code = 4.0 g/dL 3.5-5.0 N ALB) BILIRUBIN TOTAL (test 0.3 mg/dL 0.2-1.3 N code = BILT) BILIRUBIN CONJUGATED 0 mg/dL 0-0.3 N ~~~~~~~ ~~~~~~~~~~~~~~ (test code = BILCON) ~~~~~~~ ~~~~~~~~~~~~~~ ~~~~~~~~~~~~~~~ ~~~CON JUGATED BILIRUB IN IS THE REPLACEMENT ASSAY FOR DIRECTBILIRUBIN .~~~~~ ~~~~~~~~~~~~~~~ ~~~~~~ ~~~~~~~~~~~~~~~ ~~~~~~ ~~~~~~~~~~~~~ BILIRUBIN UNCONJUGATED 0 mg/dL 0-1.1 N (test code = BILUNC) SGOT/AST (test code = 21 U/L 15-46 N AST) SGPT/ALT (test code = 31 U/L 13-69 N ALT) ALKALINE PHOSPHATASE 130 U/L 38-126 H (test code = ALKP) [id number] 15:16:00 Test Item Value Reference Range Interpretation Comments LIPASE (test code = LIP) U/L 23-300 PROTHROMBIN [id number] 15:07:00 Test Item Value Reference Range Interpretation Comments PROTHROMBIN TIME 11.2 SECONDS 9.2-12.1 N PATIENT (test code = PTP) INTERNATIONAL NORMAL 1.0 The INR is to be used RATIO (test code = only for monitoring INR) ORAL ANTICOAGULANTTH ERAPY. Indicati on INR Value1. Prophylaxis/juan alberto atment of: Venous Thrombosis, Pul monary Embolism 2.0 - 3.02. Preventi on of systemic emboli sm from: Tiss ue heart valves 2.0 - 3.0 Acute myocardial infa rction (to present systemic emboli sm)* 2.0 - 3.0 Valvular heart disease 2.0 - 3.0 Atrial fibrillation 2.0 - 3.03. Application Operations Engineer al prosthetic valv es (high risk) 2.5 - 3.5 * If oral anticoagulant t herapy is elected to preventrecurren t myocardial infa rction, an INR of 2.5-3 .5 isrecommended, consistent with Food and Drug Administrationr ecommen dations. THROMBOPLASTIN TIME [id number] 15:07:00 Test Item Value Reference Range Interpretation Comments THROMBOPLASTIN TIME 25.6 SECONDS 23.4-37.0 N Therap eutic Range PARTIAL (test code = for Hep hamilton PTT) EFFECTIVE Heparin IU/mL aPT T Seconds0.3 64.30.7 88.8 CBC W/AUTO [id number] 15:02:00 Test Item Value Reference Range Interpretation Comments WHITE BLOOD CELL (test code = 8.2 x10 3/uL 5.0-12.0 N WBC) RED BLOOD CELL (test code = 4.90 x10 6/uL 4.70-6.10 N RBC) HEMOGLOBIN (test code = HGB) 15.2 g/dL 14.0-18.0 N HEMATOCRIT (test code = HCT) 45.3 % 37.0-49.0 N MEAN CELL VOLUME (test code = 92 fL 80-94 N MCV) MEAN CELL HGB (test code = MCH) 31.0 pg 27-31 N MEAN CELL HGB CONCENTRATION 33.6 g/dL 33-37 N (test code = MCHC) RED CELL DISTRIBUTION WIDTH 13.2 % 11.5-15.5 N (test code = RDW) PLATELET COUNT (test code = 240 x10 3/uL 130-400 N PLT) MEAN PLATELET VOLUME (test code 8.9 fL 9.4-16.4 L = MPV) NEUTROPHIL % (test code = NT%) 60.1 % 43-65 N IMMATURE GRANULOCYTE % (test 0.2 % 0.0-2.0 N code = IG%) LYMPHOCYTE % (test code = LY%) 32.6 % 20.5-45.5 N MONOCYTE % (test code = MO%) 4.5 % 5.5-11.7 L EOSINOPHIL % (test code = EO%) 2.2 % 0.9-2.9 N BASOPHIL % (test code = BA%) 0.4 % 0.2-1.0 N NUCLEATED RBC % (test code = 0.0 % 0-1.0 N NRBC%) NEUTROPHIL # (test code = NT#) 4.89 x10 3/uL 2.2-4.8 H IMMATURE GRANULOCYTE # (test 0.02 x10 3/uL 0-0.03 N code = IG#) LYMPHOCYTE # (test code = LY#) 2.66 x10 3/uL 1.3-2.9 N MONOCYTE # (test code = MO#) 0.37 x10 3/uL 0.3-0.8 N EOSINOPHIL # (test code = EO#) 0.18 x10 3/uL 0.0-0.2 N BASOPHIL # (test code = BA#) 0.03 x10 3/uL 0.0-0.1 N LACTIC ACID [id number] 15:01:00 Test Item Value Reference Range Interpretation Comments LACTIC ACID POC (test code = 1.17 mmol/L 0.7-2.0 N LACTP) TROPONIN I [id number] 15:01:00 Test Item Value Reference Range Interpretation Comments TROPONIN I RAPID 0.01 ng/mL 0.00-0.079 N ISTAT (test code = TROPONIN I TROPIRAP) CRITERIA0.00-0. 08 ng/mL - Negative>0.08 n g/mL - Positive The us e of serial sampling and te sting protocol is are commended practice.An xochilt vated troponin level alone is often not suffi cient fordiagnosis of myocardial infarction. Tro ponin results obtaine d by different assay s may vary.Evaluation of the extent of myoca rdial damage based on increase of troponin would be valid only if similar methodology is used. - XR CHEST 1 [id number] 14:53:00 [place]: St: REG Name: PHILLIPMICHELLE Vizcaino [facility] : 1970 Age/S: 48/M [address] Unit#: [id number] Loc: [place] [address] Phys: Isaias Gruber Acct: [id number] Dis Date: Status: REG ER PHONE #: [phone] Exam Date: 06/05/2018 1440 FAX #: [phone] Reason: CODE SEPSIS EXAMS: CPT CODE: [id number] XR CHEST 1 V 87071 EXAM: Portable chest x-ray, one view INDICATION: CODE SEPSIS LOCATION CODE: C3 COMPARISON: None T ECHNIQUE: Single Portable AP upright view of the chest DISCUSSION: Mild patchy density involving the right lung base suggest atelectasis and or infiltrative process. Heart and mediastinal contours are unremarkable. No pneumothorax or pleural vision seen. Osseous structures unremarkable. IMPRESSION: 1. Right basilar atelectasis and or early infiltrate at 5755 Reported and signed by: Rodolfo Kim M.D. CC: Technologist: KYARA KHANNA (R) Trnscrd Date/Time/By: 06/05/2018 (9435) : By: Lizet PAGE 1 Signed Report [place]: St: REG Name: MICHELLE FISHER [facility] : 1970 Age/S: 48/M [address] Unit #: [id number] Loc: [place] [address] Phys: Isaias Gruber Acct: [id number] Dis Date: Status: REG ER PHONE #: [phone] Exam Date: 06/05/2018 1440 FAX #: [phone] Reason: CODE SEPSIS EXAMS: CPT CODE: [id number] XR CHEST 1 V 94719 < Continued> Orig Print D/T: S: 06/05/2018 (0191) PAGE 2 Signed ReportCHEM [id number] 11:06:003.3[facility]annCHEM FFRZV0323-88-02 11:06:001.8[facility] PtxjaruPESBQLNVANPJ5883-09-43 11:06:0027 [facility] MedipbiNQDJHUQHLACY6563-76-63 11:06:008.7[facility] HermannELECTROLYTES 2016-02-10 11:06:0010.8[facility] AgnwbykBBMNBSORCIJX8909-74-67 11:06:82133 [facility] UsymhpbZIAPITCTLJEL5047-32-81 11:06:0056[facility] HermannELECTROLYTES 2016-02-10 11:06:003.8[facility] VxratxzGSTAEKGWRGAN6083-42-89 11:06:52666Ouaohint SdxyhrmIEDZCGYJDKQB9677-40-93 11:06:001.51[facility] AolvxmoVMLZCJQNLLNA8736-46-93 11:06:0022[facility] TbrklroYOSPUZFXKGKL5500-36-23 11:06:04053Msuxpyln [place] TBILNLRRCY1315-69-00 11:06:008.9[facility] PdqdkidHNBCNQNWZZ9159-44-26 11:06:00 4.85[facility] HrbmsbaNXKRAJINTH5823-79-34 11:06:0087.1[facility] HermannHEMATOLOGY 2016-02-10 11:06:0032.7[facility] XcbfxjgLMAIIOVNMY5133-58-16 11:06:18301Scuugutu CqjvoymODHCOYUIGO1224-04-10 11:06:0013.1[facility] KwuhffzMEZFXXVTNY5957-52-37 11:06:0042.2[facility] SqycmjdHSRKSQNDIY6813-15-87 11:06:0013.8[facility] STRCUOWOFS4751-30-02 11:06:007.1[facility] ZwnsswiQMHGKIICEK7441-30-88 11:06:00 Test Item Value Reference Range Interpretation Comments MCH (test code = MCH) 28.5 pg 27.0-31.0 [facility] AeqqyoqIAWADUOTIX3365-58-40 11:06:005.9[facility] HermannHEMATOLOGY 2016-02-10 11:06:0041.2[facility] ZhbjjszXXWHSNBNHL9330-01-48 11:06:000.5[facility] NzttenbBTQIGVOZUG2349-32-59 11:06:002.1[facility] LbmiquzYELHRZIOIL2634-96-48 11:06:004.5[facility] AzhvwhjISWQVKDUBU2272-43-78 11:06:003.7[facility] HTRZVXPJKB8607-57-64 11:06:000.2[facility] WximhdmHTXEQHRTFM8827-73-41 11:06:000.5 [facility] XijtrmqKTAZQTKJSC3067-91-77 11:06:0050.3[facility] HermannCHEM PANEL 2016-02-09 16:49:001.4[facility] ZibrhdvJKOYRWFUKCMV3335-35-76 16:49:0011.0 [facility] ExesmwgIDGRGKYXADKL9953-16-40 16:49:0054[facility] HermannELECTROLYTES 2016-02-09 16:49:64642Jgopqzny EioikugOARKYNBMLHZC1557-49-40 16:49:004.0[facility] JsqfupuHWZGLSFRJIPT1135-49-83 16:49:0029[facility] CemknltAPZSFZXTTAXT3980-56-49 16:49:88134Cqghsgdl LdosofzXGDUCVHKPJGJ5378-61-71 16:49:008.9[facility] XQOVEWPXEWHT1087-35-27 16:49:001.54[facility] BdmactzTPYEBXAHHUAT1046-98-93 16:49:0024[facility] LxvrmzeEDKJYYWZZNQO4538-24-31 16:49:99783Sloboweb Mikey DPVQPKLXHT8296-06-02 16:49:0085.8[facility] DhrboncDBNOQXPCUL2677-97-44 16:49:00 12.8[facility] TewxobpQAEFLXECQR9728-92-34 16:49:0038.8[facility] HermannHEMATOLOGY 2016-02-09 16:49:004.52[facility] QiolqigCYUGAQIIEH6888-23-42 16:49:0010.8[facility] TrwszprCIVNPHHBLL7896-33-19 16:49:00433Gpcgxlpi HcyqkpnGLENGFFRGN9064-22-32 16:49:006.5[facility] EveaeazNPUNQLPVTA6309-09-96 16:49:0013.3[facility] KAGYMTJTYH3285-24-46 16:49:00 Test Item Value Reference Range Interpretation Comments MCH (test code = MCH) 28.2 pg 27.0-31.0 [facility] XsvlhzfMAHCDXGGUX4856-93-97 16:49:0032.9[facility] HermannHEMATOLOGY 2016-02-09 16:49:000.1[facility] DrtneecLEMOBQOKEA8198-95-32 16:49:000.1[facility] SxxkdadLSTCDLOBMY0075-13-56 16:49:000.8[facility] NhaodbtJMUSVJHZZT8804-50-12 16:49:003.1[facility] OdmdhrpCKOTXAKZJH1350-99-68 16:49:006.8[facility] FQNPZEQSVE6393-85-58 16:49:000.6[facility] HbhnjkjAIDWIQMTWK4425-68-12 16:49:000.6 [facility] ZrdxaurBLPAEJTERH9207-39-83 16:49:007.7[facility] HermannHEMATOLOGY 2016-02-09 16:49:0028.6[facility] KnmvhtfGOINDBEAKW8484-88-02 16:49:0062.5[facility] HermannCHEM WGTZB2800-76-05 10:27:002.0[facility] WwivxsxWXMQAQQKRSIN9843-31-92 10:27:98605Imntzxyf CfyitmeKFNXTMSWZEDY3783-09-17 10:27:008.4[facility] DPIVOMLJMZZQ7118-94-69 10:27:009.0[facility] CnjbmreUNGTWLVQUAJI5498-06-30 10:27:0028[facility] WdxasucTFKQNUKCVEIN2825-55-89 10:27:63449Hnsjmayf Mikey PCYOSQDFKFST4561-69-46 10:27:0021[facility] RlrvjuyZCXADASNGFDZ2770-88-11 10:27:00 1.52[facility] VqtqptbDAEZSVRZFDTS9558-51-47 10:27:38959Ibunuugg Mikey QKIFUEALNQTQ1691-62-06 10:27:004.4[facility] HjypgwbUEJHQIDZFYGI3374-19-63 10:27:0055[facility] PrmvuumLQJDHUSHRZ1172-78-65 10:27:001.6[facility] [place] IPWSCDBMPB9630-06-24 10:27:003.4[facility] BvsyaxbIIPGCQBZPW2343-34-11 10:27:000.3 [facility] UsutovdKQFSHGXXYD8779-20-37 10:27:000.6[facility] HermannHEMATOLOGY 2016-02-08 10:27:005.3[facility] DxpjxzhUUQUGAGGSX1270-44-88 10:27:0056.3[facility] CkbguytTDRANIRENI1090-07-77 10:27:006.0[facility] IpyhppjLXVZTLVPKG7238-92-83 10:27:0035.8[facility] AkpntlpHWOWXORRDO5170-39-59 10:27:000.2[facility] DFLPVSIIFT8522-41-54 10:27:30091Ifiyehge BdhhcyeQFZUYDJYSH9730-68-76 10:27:006.3 [facility] AzqndofSOPSHHWJPS3159-78-87 10:27:0033.0[facility] HermannHEMATOLOGY 2016-02-08 10:27:0013.3[facility] VuzyysfDZZSVIYTYT3476-73-97 10:27:0041.9[facility] FljtcvoCVKXVJXMQM1727-05-44 10:27:0086.1[facility] QvdqcbqPKTMTJHEIR4655-48-57 10:27:004.87[facility] WylxufuLVBPWGXKQD0717-84-22 10:27:0013.8[facility] OCIAVDMWMK0715-56-00 10:27:009.4[facility] TrkxopySASVBMWUYV0312-16-73 10:27:00 Test Item Value Reference Range Interpretation Comments MCH (test code = MCH) 28.4 pg 27.0-31.0 [facility] HermannCHEM MEJJI1696-20-19 11:02:002.4[facility] HermannCHEM PANEL 2016-02-07 11:02:002.0[facility] HermannSPECIAL SKXLTQETW0031-10-93 22:31:006.9 [facility] HermannCARDIAC NCHOWLM3547-29-43 11:10:0040[facility] HermannTOXICOLOGY 2016-02-06 11:10:00<0.003[facility] MeyrifgQCTLRRRCCS1958-68-83 11:10:00<3 [facility] HermannCARDIAC ESBANNL6836-46-97 11:00:001.2[facility] HermannCARDIAC KBKYZEU6387-16-91 11:00:00<0.02[facility] HermannCARDIAC SYVVDGC1981-51-62 11:00:0086[facility] HermannCARDIAC WIJGAYO0633-34-02 11:00:001.4[facility] OPKQTDVPBY4877-28-83 11:00:00 Test Item Value Reference Range Interpretation Comments PTT (test code = PTT) 26.0 s 22.9-35.8 Memorial CtvdhpdDMEXEQBXMH5660-98-26 11:00:00 Test Item Value Reference Range Interpretation Comments PT (test code = PT) 13.0 s 12.0-14.7 Memorial LpzsgviGZGCIPBPXZ3168-96-33 11:00:000.96[facility] HermannCHEM PANEL 2015-08-10 21:20:11890Lwktlcia YucpgjbSEEMPAFLRREL4312-97-79 21:20:0012.1 [facility] HlzpzbdGILWPLXSYKXY2496-47-69 21:20:004.0[facility] HermannELECTROLYTES 2015-08-10 21:20:000.8[facility] LtckzobKFVIQTQVVMJS5138-04-73 21:20:0012[facility] BidjyghNKLKOFQCRLHK8052-03-14 21:20:000.5[facility] FiixtgjZSSUNHSKRBOM9301-41-27 21:20:77066Fnjfvxxf XmluiciWBRGTLKTHWNY2429-52-06 21:20:0019[facility] YSVZUFZEWKWA8726-05-10 21:20:0054[facility] GgetyegQTDMXINJGFOY6399-37-69 21:20:00 3.4[facility] SjacrojQLCIZKDAKAQU7950-65-12 21:20:0044[facility] HermannELECTROLYTES 2015-08-10 21:20:008.8[facility] FxvignsTNIMPKVRKTTI7732-64-89 21:20:0023[facility] XdljcmqNLBZIBDXHAZO2156-76-25 21:20:007.4[facility] YjwfnpvBEPDWNFNWXYY1743-82-33 21:20:27536Hwazbelz YehcnsqHBWJREIZJKGR8680-80-88 21:20:004.1[facility] WYFMSNNALGAS2461-40-19 21:20:96801Zfsrusat XcphzpqBVDPGGHTFXRN4671-23-90 21:20:89800Yxvyubna SdlvrcxCQTRBWIWFMUM8953-55-19 21:20:0018[facility] YSVYNSEITFBY8308-20-84 21:20:001.56[facility] ZrmcmsyGSOOXRDZBE4556-25-25 21:20:00 0.3[facility] WdhhsntHGYKPTOXDR0813-66-32 21:20:007.8[facility] HermannHEMATOLOGY 2015-08-10 21:20:001.4[facility] DkmjcuzQKAPBWYIIM5288-76-13 21:20:000.7[facility] ZnwvegdPBZNARJZIF3971-17-40 21:20:0076.7[facility] PcasolfPLDXILEZWU5067-82-59 21:20:0013.4[facility] KkisvmtESJABLWTKS4721-91-13 21:20:007.2[facility] HOIUKACHCM2990-82-13 21:20:002.5[facility] LpfpjylHBDUNDVYIA9461-12-91 21:20:000.2 [facility] AnmayvoDCOSTOYMQL2506-25-90 21:20:0032.9[facility] HermannHEMATOLOGY 2015-08-10 21:20:0013.9[facility] WdtydejKEAQZHXGZX0937-22-19 21:20:00 Test Item Value Reference Range Interpretation Comments MCH (test code = MCH) 29.7 pg 27.0-31.0 [facility] TjkpydxYQNXYZHAWH6349-39-02 21:20:006.9[facility] HermannHEMATOLOGY 2015-08-10 21:20:43288Lxipnxvx QgdxkvzLGVSGQWDZK1001-42-53 21:20:0010.1[facility] FqjnrzgEDAIZDJTMC6622-48-00 21:20:005.49[facility] HdhzxtbUIWPRRTFVL0535-82-83 21:20:0090.3[facility] EwoeuteWONSHYJKCX6196-65-93 21:20:0049.6[facility] YXJMSSFVCJ8320-72-84 21:20:0016.3[facility]
[2019-12-02] MEDS: NA CHLORIDE 0.9% 1,000 ML ONE ×2 (07:10→07:26)
--- NOTE | 2019-12-02 07:18 | EKG ---
Test Date: 2019-11-30 Test Time: 15:51:35 Supervisor [employer] Processing: CG MEASUREMENT RESULTS: Intervals: Rate: 76 DC: 134 QRSD: 110 QT: 364 QTc: 409 [place]: P: 13 DC: 134 QRS: -47 T: 33 INTERPRETIVE STATEMENTS: Normal sinus rhythm Left anterior fascicular block Abnormal ECG Compared to ECG 09/08/2018 20:58:56 No significant changes Electronically Signed On 12-02-19 07:15:12 CDT by Alvaro Bobby
[2019-12-02] MEDS: CEFAZOLIN/SWI 1gm 1 GM/10 ML SYR ONE ×2 (07:27→07:55)
[2019-12-02] MEDS ORDERED: ROCURONIUM 50 MG/5 ML VIAL IV ONE (07:35)
[2019-12-02] MEDS ORDERED: propofoL 200 MG/20 ML VIAL IV ONE (07:35)
[2019-12-02] MEDS ORDERED: LIDOCAINE 1% MPF 5 ML VIAL ONE (07:35)
[2019-12-02] MEDS ORDERED: FENTANYL CITR 100 MCG/2 ML ONE ×2 (07:35→08:29)
[2019-12-02] MEDS ORDERED: MIDAZOLAM HCL 2 MG/2 ML INJ ONE (07:35)
[2019-12-02] MEDS ORDERED: NEOSTIGMINE 1 MG/ML -5 ML ONE (08:59)
[2019-12-02] MEDS ORDERED: ONDANSETRON 4 MG/2 ML VIAL ONE (08:59)
[2019-12-02] MEDS ORDERED: GLYCOPYRROLATE 0.2 MG/ML SYR ONE (08:59)
[2019-12-02] MEDS ORDERED: KETOROLAC 30 MG/ML INJ ONE (08:59)
[2019-12-02] MEDS ORDERED: dexAMETHasone 4 MG/ML VIAL ONE (09:03)
--- NOTE | 2019-12-02 09:10 | P.BOP ---
Preoperative diagnosis: Large incarcerated inguinal hernia Postoperative diagnosis: same Primary procedure: Open repair of Large incarcerated Right inguinal hernia with mesh Boiler Fitter: AR JEFFRIES (CARE PROVIDER) Estimated blood loss: <10cc Specimen: hernia sac Findings: small bowel incarcerated but viable, multiple skin hydroadenitis Anesthesia: General Complications: None Implants: large mesh plug and sheet Transferred to: Recovery Room Condition: Good
[2019-12-02] MEDS: HYDROMORPHONE HCL 1 MG/ML INJ ONE ×3 (09:19→09:35)
[2019-12-02] MEDS ORDERED: MEPERIDINE HCL 25 MG/ML SYR ONE (09:20)
[2019-12-02] MEDS ORDERED: PROMETHAZINE INJ 25 MG/ML AMP ONE (09:24)
[2019-12-02] MEDS ORDERED: HYDROMORPHONE HCL 1 MG/ML INJ ONE (09:24)
[2019-12-02] MEDS ORDERED: HYDROCODONE/APAP 5/325 MG TAB ONE (10:44)
--- NOTE | 2019-12-02 11:02 | OP ---
Date of Procedure: 12/02/2019 Surgeon: Baudilio Tobias MD Weights And Measures Inspector: Mag Muller. Preoperative Diagnosis: Large incarcerated right inguinal hernia. Postoperative Diagnosis: Large incarcerated right inguinal hernia. Procedure: Open repair of large incarcerated right inguinal hernia with mesh. Ebl: Less than 10 mL. Specimen: Hernia sac. Findings: The patient has a small bowel incarcerated, but viable in the scrotum coming from the righ t inguinal hernia, is a large hernia. The patient has also multiple skin hydradenitis on the abdomen and multiple part of the body. Anesthesia: General plus local. Implants: A large mesh plug and sheath. Once again, we did this under general anesthetic. We did not use local since the patient claims he m ight have allergy to it. Indication: This is the case of a 49-year-old patient who comes to us with a large right inguinal he rnia. It has been there for some time causing pain and discomfort. He has bowel sounds in that area . His bowel was incarcerated. He has been having to go with pulmonary and medical clearance due to medical problems. Finally, he got cleared for this intervention that is needed. Benefits, alternati ves, and risks of open repair of large right inguinal hernia with mesh fully explained which include, but not limited to infection, bleeding, damage to adjacent structures, anesthesia complication, recu rrence, PR and even . He also understands this may not relieve any symptoms. He might need mor e than one surgical intervention. He also understands that we will be using mesh in that region. Pr os and cons of mesh placement were discussed with the patient. He was allowed to ask questions and a nswered to his satisfaction and he did consent also for the use of mesh. The area of concern was cassy hickey by me and the patient in the holding room. Procedure In Detail: Patient was brought to the operating room, placed in supine position. Anesthes ia was done without complication. Abdominal and inguinal area was prepped and draped in usual steril e fashion. Marcaine 0.5% was injected for local anesthetic followed by sharp incision of the skin in the right inguinal region. Incision was carried down to fascia. External oblique aponeurosis was o pened in direction of the fibers. We noticed a large right inguinal hernia carefully. We removed a very large sac from the spermatic cords and testicles to make sure they were not injured. Once we op ened the hernia sac, we noticed an incarcerated small bowel still viable. We removed some adhesions from it and then we were able to reduce the intestines in the abdominal cavity. Then, after that, I twisted the hernia sac. I then suture ligated that with 2-0 Prolene twice. Hernia sac was sent to [facility] pathologist. After that, we made sure the testicles were viable and basically the rest of the are a is intact. At that moment, I proceeded to put a mesh plug in the deep inguinal ring, secured in pl tanya with VersaTack and then a mesh sheet on the inguinal canal securing to the shelving edge of the i nguinal ligament and transversalis fascia starting from the pubic symphysis and then looped around th e spermatic cord without strangulation. Area was irrigated. Suction was done. After that, I procee ded to bring the ilioinguinal nerve and iliohypogastric nerve back into the inguinal canal since at [facility] beginning of the case were identified and protected. Once we have that, we proceeded then to hilario nstruct the superficial inguinal ring with a 2-0 Prolene and closed the external oblique aponeurosis making sure the nerves were not included. Area was irrigated. After that 3-0 chromic was used for [facility] subcutaneous tissue and francisco for the skin. We did not use local anesthetic in this patient as per patient's request. The patient tolerated the procedure well. At the end of the case, testicles were in the scrotum. Patient was sent to Recovery in stable condition. Diagnosis: Large incarcerated right inguinal hernia. Procedure: Open repair of large incarcerated right inguinal hernia with mesh. Disposition: Home. Activity: As tolerated. No heavy lifting. Followup: Follow up in my office in 1 week. Call for appointment at [phone]. Keep area dry for 48 hours, then may shower. May use cold compress in the right inguinal region. The patient is advised to use scrotal support. Medications: Include Bactrim DS p.o. b.i.d. and hydrocodone q.4 hours p.r.n. pain. ANNA/AYNA Voice ID: [id number] Report ID: [id number]
[2019-12-02] MEDS ORDERED: SUCCINYLCHOLINE 20 MG/ML (10 ML) IV ONE (12:09)
[2019-12-02 14:05] VITALS: BP 134/92; TEMP 97.6; O2SAT 100
== END 2019-12-02 11:12 | disposition home or self-care (01) ==
LOC: OR 05:53
PROVIDERS: ATTEND Surgery
PROC: 0YU50JZ Supplement Right Inguinal Region with Synthetic Substitute, Open Approach (ICD-10-PCS; principal; 2019-12-02 07:30)
DX: K40.30 Unilateral inguinal hernia, with obstruction, without gangrene, not specified as recurrent (principal); E11.9 Type 2 diabetes mellitus without complications; I10 Essential (primary) hypertension; E78.00 Pure hypercholesterolemia, unspecified; Z85.841 Personal history of malignant neoplasm of brain; Z20.828 Contact with and (suspected) exposure to other viral communicable diseases
CPT/HCPCS: 93005; 85025; 80048; 36415; 82947 ×2; 88302; 71046; 49507; U0002; J2704; J1100; J2550; J0330; J2250; J3010 ×2; J2175; J1170 ×2; J2710; J0690; J7030; J2405

== ENCOUNTER 2021-02-20 13:12 | Emergency (ER) | payer OTHER, SELFPAY ==
--- OUTSIDE RECORDS SUMMARY | 2021-02-20 13:15 | XMS REPORT | Continuity of Care Document ---
:[address] [facility] t Address [address] [place] [address] Care Team Providers Name Role Phone Unavailable Unavailable Unavailable Payers Payer Name Policy Type Policy Number Effective Date Expiration Date S ource Problems This patient has no known problems. Allergies, Adverse Reactions, Alerts Allergy Allergy Status Severity Reaction(s) Onset Inactive Treating Comm ents Source Name Type Date Date Clinician iodine DA Active U 2019-0 [facility] 4[facility]18 [facility] 00:00: d 00 [facility] ziprasid DA Active SV 2018-0 [facility] one 18 [facility] 00:00: d 00 [facility] Medications Ordered Filled Start Stop Current Ordering Indication Dosage Frequency Signature Comments Components Source Medication Medication Date Date Medication? Clinician (SIG) Name Name Atorvastati Atorvastati Yes Ramon TAKE [address] [facility] n Calcium n Calcium [facility] TABLET BY [facility] Novolin Novolin Yes Ramon [address] [facility] 70/30 70/30 [facility] in the [facility] morning , [facility] 40 units l in the [facility] evening ent Clinics Vitamin D Vitamin D Yes Ramon TAKE [address] (Ergocalcif (Ergocalcif [facility] CAPSULE [facility]) mirian) MOUTH ONCE [facility] A WEEK l [facility] Lisinopril Lisinopril Yes Ramon TAKE [address] [facility] TABLET BY [facility] Procedures This patient has no known procedures. Encounters Start End Encounter Admission Attending Care Care Encounter Source Date/Time Date/Time Type Type Clinicians Facility Department ID 2021-01-03 2021-01-03 ambulatory [facility] [id number] [facility] 2020-11-29 2020-11-29 Outpatient [facility] [id number] [facility] 2020-11-24 2020-11-24 [facility] [id number] [facility] 2020-11-16 2020-11-16 [facility] [id number] [facility] 2020-11-14 2020-11-14 [facility] [id number] [facility] 2020-11-14 2020-11-14 [facility] [id number] [facility] 2020-10-12 2020-10-12 Out[facility] [id number] [facility] 2020-09-14 2020-09-14 Outpatient [facility] [id number] [facility] 2020-08-15 2020-08-15 [facility] [id number] [facility] 2020-08-02 2020-08-02 Outpatient [facility] [id number] [facility] 2020-08-01 2020-08-01 Outpatient [facility] [id number] [facility] 2020-06-27 2020-06-27 Outpatient [facility] [id number] [facility] 2020-06-08 2020-06-08 Out[facility] [id number] [facility] 2020-06-02 2020-06-02 Outpatient [facility] [id number] [facility] 2020-05-09 2020-05-09 Outpatient [facility] [id number] [facility] 2020-05-04 2020-05-04 Outpatient [facility] [id number] [facility] 2020-05-04 2020-05-04 Outpatient [facility] [id number] [facility] 2020-04-08 2020-04-08 Out[facility] [id number] [facility] 2020-02-08 2020-02-08 Outpatient [facility] [id number] [facility] 2019-12-31 2019-12-31 Outpatient [facility] [id number] [facility] 2019-11-11 2019-11-11 Outpatient [facility] [id number] [facility] 2019-11-11 2019-11-11 Out[facility] [id number] [facility] 2019-10-28 2019-10-28 [facility] [id number] [facility] 13:20[facility]00 13:20:00 [facility] 2019-08-07 2019-08-07 Outpatient Penelope Negretet [id number] [facility] 10:43:00 10:43:00 [facility] 2019-07-06 2019-07-06 Outpatient Penelope Negretet [id number] [facility] 14:00:00 14:00:00 [facility] Clinics Results Test Description Test Time Test Comments [...] NG/ML are obtained. - CT HEAD/BRAIN W/O [id number] 15:20:00 FAX: Colleen Mckenzie MD [phone] [place]: St: REG Name: [facility] : 1970 Age/S: 48/M [address] Unit: [id number] Loc: [place] [address] Phys: Colleen Mckenzie MD Acct: [id number] Dis Date: Status: REG ER PHONE #: [phone] Exam Date: 06/05/2018 1510 FAX #: [phone] Reason: june, h/o brain ca EXAMS: CPT CODE: [id number] CT HEAD/BRAIN W/O CONT 55595 Location: T18 CT head, 06/05/18 COMPARISON EXAMS:None of the brain TECHNIQUE: CT examination of the brain was performed without contrast on a helical scanner. Scanning conducted from skull base to vertex in the axial plane acquiring contiguous 5mm slice thickness . The examination was performed on a [facility] helical CT scanner utilizing low-dose [...] Signed Report (CONTINUED) FAX: Colleen Mckenzie MD [phone] [place]: St: REG Name: [facility] : 1970 Age/S: 48/M [address] Unit: [id number] Loc: [place] [address] Phys: Colleen Mckenzie MD Acct: [id number] Dis Date: Status: REG ER PHONE #: [phone] Exam Date: 06/05/2018 1510 FAX #: [phone] Reason: june, h/o brain ca EXAMS: CPT CODE: [id number] CT HEAD/BRAIN W/O CONT [id number] <Continued> at 1520 Reported and signed by: Janeen Chacon MD CC: Colleen Mckenzie MD Technologist: CHIDI KATZ Trnscrd Dt/Tm: 06/05/2018 (1520) [email or web address] Orig Print D/T: S: 06/05/2018 (1523 PAGE 2 Signed ReportBASIC METABOLIC [id number] 15:18:00 Test Item Value Reference Range Interpretation [...] 9.3 mg/dL 8.4-10.2 N CA) LIVER FUNCTION [id number] 15:18:00 Test Item Value Reference Range Interpretation [...] U/L 38-126 H (test code = ALKP) [id number] 15:18:00 Test Item Value Reference Range Interpretation Comments LIPASE (test code = LIP) 133 U/L 23-300 N BASIC METABOLIC [id number] 15:16:00 Test Item Value Reference Range Interpretation [...] 9.3 mg/dL 8.4-10.2 N CA) LIVER FUNCTION [id number] 15:16:00 Test Item Value Reference Range Interpretation [...] U/L 38-126 H (test code = ALKP) [id number] 15:16:00 Test Item Value Reference Range Interpretation Comments LIPASE (test code = LIP) U/L 23-300 PROTHROMBIN [id number] 15:07:00 Test Item Value Reference Range Interpretation [...] - 3.0 Atrial fibrillation 2.0 - 3.03. Nutrition Coordinator al prosthetic valv es (high risk) 2.5 - 3.5 * If oral anticoagulant t herapy is elected to preventrecurren t myocardial infa rction, an INR of 2.5-3 .5 isrecommended, consistent with Food and Drug Administrationr ecommen dations. THROMBOPLASTIN TIME [id number] 15:07:00 Test Item Value Reference Range Interpretation Comments THROMBOPLASTIN TIME 25.6 SECONDS 23.4-37.0 N Therap eutic Range PARTIAL (test code = for Hep hamilton PTT) EFFECTIVE Heparin IU/mL aPT T Seconds0.3 64.30.7 88.8 CBC W/AUTO [id number] 15:02:00 Test Item Value Reference Range Interpretation [...] 0.03 x10 3/uL 0.0-0.1 N LACTIC ACID [id number] 15:01:00 Test Item Value Reference Range Interpretation Comments LACTIC ACID POC (test code = 1.17 mmol/L 0.7-2.0 N LACTP) TROPONIN I [id number] 15:01:00 Test Item Value Reference Range Interpretation Comments TROPONIN I RAPID 0.01 ng/mL 0.00-0.079 N ISTAT (test code = TROPONIN I TROPIRAP) CRITERIA0.00-0. 08 ng/mL - Negative>0.08 n g/mL - Positive The us e of serial sampling and te sting protocol is are commended practice.An xochilt vated troponin level alone is often not suffi cient fordiagnosis of myocardial infarction. Tro jamison results obtaine d by different assay s may vary.Evaluation of the extent of myoca rdial damage based on increase of troponin would be valid only if similar methodology is used. - XR CHEST 1 [id number] 14:53:00 [place]: St: REG Name: [facility] : 1970 Age/S: 48/M [address] Unit#: [id number] Loc: [place] [address] Phys: Isaias Gruber Acct: [id number] Dis Date: Status: REG ER PHONE #: [phone] Exam Date: 06/05/2018 1440 FAX #: [phone] Reason: CODE SEPSIS EXAMS: CPT CODE: [id number] XR CHEST 1 V 15471 EXAM: Portable chest x-ray, one view INDICATION: [...] basilar atelectasis and or early infiltrate at 9262 Reported and signed by: Rodolfo Kim M.D. CC: Technologist: KYARA KHANNA (R) Trnscrd Date/Time/By: 06/05/2018 (4442) : By: NavinHPLibertad PAGE 1 Signed Report [place]: St: REG Name: [facility] : 1970 Age/S: 48/M [address] Unit #: [id number] Loc: [place] [address] Phys: Isaias Gruber Acct: [id number] Dis Date: Status: REG ER PHONE #: [phone] Exam Date: 06/05/2018 6710 FAX #: [phone] Reason: CODE SEPSIS EXAMS: CPT CODE: [id number] XR CHEST 1 V 08403 < Continued> Orig Print D/T: S: 06/05/2018 (4113) PAGE 2 Signed Report
--- NOTE | 2021-02-20 13:45 | EDPHYS ---
Physician Documentation [facility] Name: Sanjeev Mcpherson Age: 50 yrs Sex: Male : 1970 Arrival Date: 02/20/2021 Time: 13:16 Bed Waiting Private MD: EMILY Physician David Alberts HPI: 02/20 13:44 This 50 yrs old Male presents to ER via Ambulatory with complaints of Facial pm1 Swelling. 13:44 The patient presents with pain, swelling. The problem is located in the upper left pm1 first bicuspid. Onset: The symptoms/episode began/occurred 3 day(s) ago. 13:44 Duration: The symptoms are continuous. Modifying factors: The symptoms are alleviated pm1 by nothing, the symptoms are aggravated by nothing. Associated signs and symptoms: Pertinent negatives: inability to eat, redness in area. Severity of symptoms: in the emergency department the symptoms are actually worse. The patient has not recently seen a physician. Patient was eating three days ago and felt one of his tooth crack with resulting dental pain. Patient reports onset of swelling to left side of face today . 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 pm1 13:44 Cardiovascular: Negative for chest pain, palpitations, and edema, Respiratory: Negative for shortness of breath, cough, wheezing, and pleuritic chest pain, Abdomen/GI: Negative for abdominal pain, nausea, vomiting, diarrhea, and constipation, Back: Negative for injury and pain, MS/Extremity: Negative for injury and deformity, Skin: Negative for injury, rash, and discoloration. 13:44 Neuro: Negative for headache, weakness, numbness, tingling, and seizure. 13:44 ENT: Positive for dental pain, Negative for difficulty swallowing, difficulty handling secretions, hoarseness. 13:44 All other systems are negative. Exam: 13:44 Constitutional: This is a well developed, well nourished patient who is awake, alert, pm1 and in no acute distress. Head/Face: Normocephalic, atraumatic. 13:44 Skin: Warm, dry with normal turgor. Normal color with no rashes, no lesions, and no evidence of cellulitis. MS/ Extremity: Pulses equal, no cyanosis. Neurovascular intact. Full, normal range of motion. 13:44 ENT: Mouth: Lips: normal, moist, Oral mucosa: normal, pink and intact, moist, Posterior pharynx: no acute changes, Dental exam: dental caries, that is severe, diffusely, gum swelling, that is mild, specifically in the upper left cuspid (#11), upper left first bicuspid (#12) and upper left second bicuspid (#13), missing teeth, diffusely. 13:44 Neck: Exam negative for acute changes, ROM/movement: no acute changes. 13:44 Cardiovascular: Exam negative for acute changes, Rate: normal, Rhythm: regular, Pulses: no pulse deficits are appreciated. 13:44 Respiratory: Exam negative for acute changes, respiratory distress, shortness of breath. 13:44 Neuro: Exam negative for acute changes, Orientation: is normal, Mentation: is normal, Motor: is normal, moves all fours, Gait: is steady, at a normal pace, without difficulty. Vital Signs: 13:44 Pulse 99; Resp 18; Temp 98.9; Pulse Ox 99% on R/A; Weight 92.53 kg; Height 5 ft. 0 in. iw (152.40 cm); 13:44 BP 101 / 74; iw 13:44 Body Mass Index 39.84 (92.53 kg, 152.40 cm) iw MDM: 13:44 Data reviewed: vital signs. pm1 13:44 Counseling: I had a detailed discussion with the patient and/or guardian regarding: the pm1 historical points, exam findings, and any diagnostic results supporting the discharge/admit diagnosis, the need for outpatient follow up, for definitive care, a dentist, to return to the emergency department if symptoms worsen or persist or if there are any questions or concerns that arise at home. 13:44 Patient medically screened. 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 Last narcotic prescription 12/07/2020. pm1 Administered Medications: 13:53 Drug: Clindamycin 600 mg Route: IM; Site: right vastus lateralis; iw 13:53 Drug: [place] (HYDROcodone-acetaminophen) 10 mg-325 mg 1 tabs Route: PO; iw Disposition: 02/21 08:40 Co-signature as Attending Physician, David Alberts MD I agree with the assessment and vanessa plan of care. Disposition Summary: 02/20/21 13:44 Discharge Ordered Location: Home pm1 Problem: new pm1 Symptoms: have improved pm1 Condition: Stable pm1 Diagnosis - Periapical abscess without sinus pm1 Followup: pm1 - With: Emergency Department - When: As needed - Reason: Worsening of condition Followup: pm1 - With: Private Physician - When: 2 - 3 days - Reason: Recheck today's complaints, Continuance of care, Re-evaluation by your physician Discharge Instructions: - Discharge Summary Sheet pm1 - Dental Abscess pm1 - Dental Pain pm1 - Diet and Dental Disease pm1 Forms: - Medication Reconciliation Form pm1 - Thank You Letter pm1 - Antibiotic Education pm1 - Prescription Opioid Use pm1 Prescriptions: - Clindamycin HCl 300 mg Oral Capsule - take 1 capsule by ORAL route every 6 hours for 10 days; 40 capsule; Refills: 0, pm1 Product Selection Permitted - Tylenol-Codeine #3 300 mg-30 mg Oral - take 2 tablet by ORAL route every 6 hours As needed; 20 tablet; Refills: 0, pm1 Product Selection Permitted Signatures: David Alberts MD MD cha Williams, Irene, RN RN iw Cody Irvin NP CABLEWAY OPERATOR pm1
--- NOTE | 2021-02-20 13:45 | ER ---
Nurse's Notes [facility] Name: Sanjeev Mcpherson Age: 50 yrs Sex: Male : 1970 Arrival Date: 02/20/2021 Time: 13:16 Bed Waiting Private MD: Diagnosis: Periapical abscess without sinus Presentation: 02/20 13:41 Chief complaint: Patient states: bad tooth on left upper jaw, has swelling to left side iw of face. Coronavirus screen: At this time, the client does not indicate any symptoms associated with coronavirus-19. Ebola Screen: Patient negative for fever greater than or equal to 101.5 degrees Fahrenheit, and additional compatible Ebola Virus Disease symptoms Patient denies exposure to infectious person. Patient denies travel to an Ebola-affected area in the 21 days before illness onset. No symptoms or risks identified at this time. Initial Sepsis Screen: Does the patient meet any 2 criteria? No. Patient's initial sepsis screen is negative. Does the patient have a suspected source of infection? No. Patient's initial sepsis screen is negative. Risk Assessment: Do you want to hurt yourself or someone else? Patient reports no desire to harm self or others. Onset of symptoms was February 20, 2021. 13:41 Method Of Arrival: Ambulatory iw 13:41 Acuity: JULIANNE 3 iw Historical: - Allergies: 13:42 Adhesives; iw 13:42 Anesthetics - Amide Type; iw 13:42 Iodine; iw - PMHx: 13:42 "I only have one lung"; BRAIN TUMOR; Cancer; Diabetes - NIDDM; Hyperlipidemia; iw Hypertension; - PSHx: 13:42 hernia repair; iw Vital Signs: 13:44 Pulse 99; Resp 18; Temp 98.9; Pulse Ox 99% on R/A; Weight 92.53 kg; Height 5 ft. 0 in. iw (152.40 cm); 13:44 BP 101 / 74; iw 13:44 Body Mass Index 39.84 (92.53 kg, 152.40 cm) iw ED Course: 13:16 Patient arrived in ED. as 13:42 Triage completed. iw 13:42 Arm band placed on. iw 13:43 Cody Irvin NP is PHCP. pm1 13:43 David Alberts MD is Attending Physician. pm1 14:25 Justice, Alma, RN is Primary Nurse. iw Administered Medications: 13:53 Drug: Clindamycin 600 mg Route: IM; Site: right vastus lateralis; iw 13:53 Drug: [place] (HYDROcodone-acetaminophen) 10 mg-325 mg 1 tabs Route: PO; iw Outcome: 13:44 Discharge ordered by MD. pm1 14:25 Patient left the ED. iw Signatures: Jada Tobias as Alma Rendon RN RN iw Cody Irvin NP SUPERVISOR FABRICATION pm1
[2021-02-20] MEDS ORDERED: CLINDAMYCIN IV 150 MG/ML (4 mL) VIAL ONE (13:47)
[2021-02-20] MEDS ORDERED: HYDROCODONE/APAP 10/325 TAB ONE (13:47)
[2021-02-20 14:41] VITALS: BP 101/74; TEMP 98.9; O2SAT 99
== END 2021-02-20 14:25 | disposition home or self-care (01) ==
LOC: ER 13:12
DX: K04.7 Periapical abscess without sinus (principal); I10 Essential (primary) hypertension; Z88.4 Allergy status to anesthetic agent; Z91.048 Other nonmedicinal substance allergy status
CPT/HCPCS: 96372; 99282; S0077

== ENCOUNTER 2021-03-15 08:35 | Emergency (ER) | payer SELFPAY ==
--- OUTSIDE RECORDS SUMMARY | 2021-03-15 08:38 | XMS REPORT | Continuity of Care Document ---
:1970 Author Organization [facility] t Address [address] [place] [address] Care Team Providers Name Role Phone Unavailable Unavailable Unavailable Payers Payer Name Policy Type Policy Number Effective Date Expiration Date S ource Problems This patient has no known problems. Allergies, Adverse Reactions, Alerts Allergy Allergy Status Severity Reaction(s) Onset Inactive Treating Comm ents Source Name Type Date Date Clinician iodine DA Active U 2019-0 [facility] 4[facility]18 [facility] 00:00: d 00 [facility] ziprasid DA Active SV 2018-0 [facility] one 18 [facility] 00:00: d 00 [facility] Medications Ordered Filled Start Stop Current Ordering Indication Dosage Frequency Signature Comments Components Source Medication Medication Date Date Medication? Clinician (SIG) Name Name Atorvastati Atorvastati Yes Ramon TAKE [address] [facility] n Calcium n Calcium [facility] TABLET [facility] Novolin Novolin Yes Ramon [address] [facility] 70/30 70/30 [facility] in the [facility] morning , [facility] 40 units l in the [facility] ent Clinics Vitamin D Vitamin D Yes Ramon TAKE [address] (Ergocalcif (Ergocalcif [facility] CAPSULE [facility] mirian) mirian) MOUTH [facility]CE [facility] Lisinopril Lisinopril Yes Ramon TAKE [address] [facility] TABLET [facility] Procedures This patient has no known procedures. Encounters Start End Encounter Admission Attending Care Care Encounter Source Date/Time Date/Time Type Type Clinicians Facility Department ID 2021-02-21 2021-02-21 ambulatory [facility] [id number] [facility] 2021-01-03 2021-01-03 ambulatory [facility] [id number] [facility] 2020-11-29 2020-11-29 Outpatient [facility] [id number] [facility] 2020-11-25 2020-11-25 ambulatory [facility] [id number] [facility] 2020-11-24 2020-11-24 Outpatient [facility] [id number] [facility] 2020-11-16 2020-11-16 Outpatient [facility] [id number] [facility] 2020-11-14 2020-11-14 Out[facility] [id number] [facility] 2020-11-14 2020-11-14 Outpatient [facility] [id number] [facility] 2020-10-12 2020-10-12 Out[facility] [id number] [facility] 2020-09-14 2020-09-14 Outpatient [facility] [id number] [facility] 2020-08-15 2020-08-15 Outpatient [facility] [id number] [facility] 2020-08-02 2020-08-02 Outpatient [facility] [id number] [facility] 2020-08-01 2020-08-01 Outpatient [facility] [id number] [facility] 2020-06-27 2020-06-27 Outpatient [facility] [id number] [facility] 2020-06-08 2020-06-08 Outpatient [facility] [id number] [facility] 2020-06-02 2020-06-02 Outpatient [facility] [id number] [facility] 2020-05-09 2020-05-09 Outpatient [facility] [id number] [facility] 2020-05-04 2020-05-04 Outpatient [facility] [id number] [facility] 2020-05-04 2020-05-04 Outpatient [facility] [id number] [facility] 2020-04-08 2020-04-08 Outpatient [facility] [id number] [facility] 2020-02-08 2020-02-08 Outpatient [facility] [id number] [facility] 2019-12-31 2019-12-31 Outpatient [facility] [id number] [facility] 2019-11-11 2019-11-11 Outpatient [facility] [id number] [facility] 2019-11-11 2019-11-11 Out[facility] [id number] [facility] 2019-10-28 2019-10-28 [place] [place] [id number] [facility] 13:20:00 13:20:00 [facility] Clin[facility] 2019-08-07 2019-08-07 Out[place] [id number] 10:43:00 10:43:00 [facility] [address] [facility] Clin[facility] 2019-07-06 2019-07-06 [place] [id number] 14:00:00 14:00:00 t [facility] ent Clinics Results Test Description Test Time [...] NG/ML are obtained. - CT HEAD/BRAIN W/O [id number] 15:20:00 FAX: Colleen Mckenzie MD [phone] [place]: St: REG Name: MICHELLE FISHER [facility] : 1970 Age/S: 48/M [address] Unit: [id number] Loc: [place] [address] Phys: Colleen Mckenzie MD Acct: [id number] Dis Date: Status: REG ER PHONE #: [phone] Exam Date: 06/05/2018 [facility]0 FAX #: [phone] Reason: june, h/o brain ca EXAMS: CPT CODE: [id number] CT HEAD/BRAIN W/O CONT 38137 Location: T18 CT head, 06/05/18 COMPARISON EXAMS:None of the brain TECHNIQUE: CT examination of the brain was performed without contrast on a helical scanner. Scanning conducted from skull base to vertex in the axial plane acquiring contiguous 5mm slice thickness . The examination was performed on a rust at helical CT scanner utilizing low-dose radiation [...] Signed Report (CONTINUED) FAX: Colleen Mckenzie MD [phone] [place]: St: REG Name: MICHELLE FISHER [facility] : 1970 Age/S: 48/M [address] Unit: [id number] Loc: [place] [address] Phys: Colleen Mckenzie MD Acct: [id number] Dis Date: Status: REG ER PHONE #: [phone] Exam Date: 06/05/2018 1510 FAX #: [phone] Reason: june, h/o brain ca EXAMS: CPT CODE: [id number] CT HEAD/BRAIN W/O CONT 58201 <Continued> at 1520 Reported and signed by: Janeen Chacon MD CC: Colleen Mckenzie MD Technologist: CHIDI KATZ Trnscrd Dt/Tm: 06/05/2018 (8510) [email or web address] Orig Print D/T: S: 06/05/2018 (1523 PAGE 2 Signed ReportBASIC METABOLIC [id number] 15:18:00 Test Item Value Reference Range Interpretation [...] 9.3 mg/dL 8.4-10.2 N CA) LIVER FUNCTION [id number] 15:18:00 Test Item Value Reference Range Interpretation [...] U/L 38-126 H (test code = ALKP) [id number] 15:18:00 Test Item Value Reference Range Interpretation Comments LIPASE (test code = LIP) 133 U/L 23-300 N BASIC METABOLIC [id number] 15:16:00 Test Item Value Reference Range Interpretation [...] 9.3 mg/dL 8.4-10.2 N CA) LIVER FUNCTION [id number] 15:16:00 Test Item Value Reference Range Interpretation [...] U/L 38-126 H (test code = ALKP) [id number] 15:16:00 Test Item Value Reference Range Interpretation Comments LIPASE (test code = LIP) U/L 23-300 PROTHROMBIN [id number] 15:07:00 Test Item Value Reference Range Interpretation [...] - 3.0 Atrial fibrillation 2.0 - 3.03. Auto Body Painter al prosthetic valv es (high risk) 2.5 - 3.5 * If oral anticoagulant t herapy is elected to preventrecurren t myocardial infa rction, an INR of 2.5-3 .5 isrecommended, consistent with Food and Drug Administrationr ecommen dations. THROMBOPLASTIN TIME [id number] 15:07:00 Test Item Value Reference Range Interpretation Comments THROMBOPLASTIN TIME 25.6 SECONDS 23.4-37.0 N Therap eutic Range PARTIAL (test code = for Hep hamilton PTT) EFFECTIVE Heparin IU/mL aPT T Seconds0.3 64.30.7 88.8 CBC W/AUTO [id number] 15:02:00 Test Item Value Reference Range Interpretation [...] 0.03 x10 3/uL 0.0-0.1 N LACTIC ACID [id number] 15:01:00 Test Item Value Reference Range Interpretation Comments LACTIC ACID POC (test code = 1.17 mmol/L 0.7-2.0 N LACTP) TROPONIN I [id number] 15:01:00 Test Item Value Reference Range Interpretation [...] methodology is used. - XR CHEST 1 [id number] 14:53:00 [place]: St: REG Name: MICHELLE FISHER [facility] : 1970 Age/S: 48/M [address] Unit#: [id number] Loc: [place] [address] Phys: Isaias Gruber Acct: [id number] Dis Date: Status: REG ER PHONE #: [phone] Exam Date: 06/05/2018 1440 FAX #: [phone] Reason: CODE SEPSIS EXAMS: CPT CODE: [id number] XR CHEST 1 V 03510 EXAM: Portable chest x-ray, one view INDICATION: [...] basilar atelectasis and or early infiltrate at 5746 Reported and signed by: Rodolfo Kim M.D. CC: Technologist: KYARA KHANNA (Anais) Trnscrd Date/Time/By: 06/05/2018 (2121) : By: Lizet PAGE 1 Signed Report [place]: St: REG Name: MICHELLE FISHER [facility] : 1970 Age/S: 48/M [address] Unit #: [id number] Loc: [place] [address] Phys: Isaias Gruber Acct: [id number] Dis Date: Status: REG ER PHONE #: [phone] Exam Date: 06/05/2018 1440 FAX #: [phone] Reason: CODE SEPSIS EXAMS: CPT CODE: [id number] XR CHEST 1 V 25144 < Continued> Orig Print D/T: S: 06/05/2018 (0846) PAGE 2 Signed Report
[2021-03-15] MEDS ORDERED: METOCLOPRAMIDE 10 MG/2mL INJ ONE (09:28)
[2021-03-15] MEDS ORDERED: NA CHLORIDE 0.9% 1,000 ML ONE (09:29)
[2021-03-15] MEDS ORDERED: ONDANSETRON 4 MG/2 ML VIAL ONE (09:29)
[2021-03-15] MEDS ORDERED: HYDROMORPHONE HCL 1 MG/ML INJ ONE (09:29)
[2021-03-15 09:34] LABS: Absolute Lymphocytes (CBC) 1.8 K/uL (0.7-4.9); Hematocrit 48.6 % (39.6-49.0); Lymphocytes % 19.3 % (15.3-44.8); MPV 8.3 fL (7.6-11.3); RBC Red Blood Cell Count 5.05 M/uL (4.33-5.43)
[2021-03-15 09:44] LABS: Protime INR 0.88
[2021-03-15 11:07] LABS: Potassium 5.6 mmol/L (3.5-5.1)
--- NOTE | 2021-03-15 11:27 | RAD REPORT ---
EXAM DESCRIPTION: MRI - Brain Wo Cont - 03/15/2021 10:09 am CLINICAL HISTORY: HEADACHE COMPARISON: Brain Wo Cont dated 09/05/2020; Brain Wo Cont dated 10/30/2019 TECHNIQUE: Sagittal T1-weighted images were obtained along with axial PD, heavily T2-weighted and T2 -FLAIR images. Axial DWI and ADC mapping sequences were also obtained along with coronal heavily T2-w eighted images. FINDINGS: No intracranial hemorrhage, mass or acute infarction. There is no edema or shift of midlin e structures. No cortical edema or sulcal effacement. No measurable atrophy changes seen. The ventric les are normal. Patient does have patchy areas of T2/IR signal abnormality in the cerebral hemisphere s. There is focal gliosis in the left occipital lobe with overlying occipital craniotomy defect. This would match the history of brain tumor removal. There is no new finding in this region. Cool-matter/ white matter junction is preserved. Signal voids are seen as a normal finding in the major intracrani al vessels. No sella or supra sella abnormality. No globe or orbital content abnormality seen. Mastoid air cells are clear. Stable retention cyst along the floor of the right maxillary sinus. Righ t frontal region scalp lipoma again noted. IMPRESSION: No mass, hemorrhage, edema or acute intracranial finding. Above detailed findings are stable from 09/05/2020 examination.
[2021-03-15] MEDS ORDERED: INSULIN -REGULAR HUMAN 50 UNIT/0.5 ML ML ONE (11:29)
[2021-03-15] MEDS ORDERED: NA CHLORIDE 0.9% 2,000 ML ONE (11:30)
--- NOTE | 2021-03-15 13:47 | ER ---
Nurse's Notes [facility] Name: Sanjeev Mcpherson Age: 50 yrs Sex: Male : 1970 Arrival Date: 03/15/2021 Time: 08:36 Bed 10 Private MD: Ramon Harris Diagnosis: Hyperglycemia, unspecified;Headache Presentation: 03/15 08:43 Chief complaint: Patient states: "I have the worst headache ever. last time this jd3 happened I had a brain tumor.". Coronavirus screen: At this time, the client does not indicate any symptoms associated with coronavirus-19. Ebola Screen: No symptoms or risks identified at this time. Initial Sepsis Screen: Does the patient meet any 2 criteria? No. Patient's initial sepsis screen is negative. Does the patient have a suspected source of infection? No. Patient's initial sepsis screen is negative. Risk Assessment: Do you want to hurt yourself or someone else? Patient reports no desire to harm self or others. Onset of symptoms was March 15, 2021. 08:43 Method Of Arrival: Ambulatory [facility] 08:43 Acuity: JULIANNE 3 jd3 Triage Assessment: 08:51 Headache History: The patient has had previous headaches and this one is similar to [facility] previous episodes. General: Appears uncomfortable, well developed, well nourished, Behavior is calm, cooperative, appropriate for age. Pain: Pain currently is 10 out of 10 on a pain scale. Pain began gradually, Also complains of no other associated symptoms. Neuro: No deficits noted. 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 - Social history:: Smoking status: Patient denies any tobacco usage or history of. - Family history:: not pertinent. Screenin:50 Abuse screen: Denies threats or abuse. Denies injuries from another. Nutritional [facility] screening: No deficits noted. Tuberculosis screening: No symptoms or risk factors identified. Fall Risk None identified. Vital Signs: 08:45 BP 134 / 90; Pulse 117; Resp 18 S; Temp 98.3(TE); Pulse Ox 97% on R/A; Weight 90.72 kg jd3 (R); Height 5 ft. 6 in. (167.64 cm) (R); Pain 10/10; 08:45 Body Mass Index 32.28 (90.72 kg, 167.64 cm) jd3 ED Course: 08:36 Patient arrived in ED. am2 08:36 Ramon Harris DO is Private Physician. am2 08:44 Triage completed. jd3 08:46 Arm band placed on. jd3 08:49 Sylvie Saba, ДМИТРИЙ is Primary Nurse. jh5 08:50 Patient has correct armband on for positive identification. Bed in low position. Call [facility] light in reach. 08:50 No provider procedures requiring assistance completed. jh5 08:55 Mic Clark MD is Attending Physician. ma2 09:23 Basic Metabolic Panel Sent. jh5 09:23 CBC with Diff Sent. jh5 09:23 Protime (+inr) Sent. jh5 09:23 Ptt, Activated Sent. jh5 09:32 Basic Metabolic Panel Sent. jh5 09:32 Protime (+inr) Sent. jh5 09:32 Ptt, Activated Sent. jh5 09:32 CBC with Diff Sent. jh5 10:02 MRI - Brain Wo Cont In Process Unspecified. EDMS Administered Medications: 11:09 Discontinued: NS 0.9% 1000 ml IV at 125 ml/hr continuous jh5 09:31 Drug: Zofran (Ondansetron) 4 mg Route: IVP; Site: right forearm; jh5 09:32 Drug: NS 0.9% 1000 ml Route: IV; Rate: 125 ml/hr; Site: right antecubital; jh5 09:32 Drug: Reglan (metoCLOPramide) 20 mg Route: IVP; Site: right forearm; jh5 09:32 Drug: Dilaudid (HYDROmorphone) 1 mg Route: IVP; Site: right forearm; jh5 11:28 Drug: NS 0.9% 2000 ml Route: IV; Rate: 1 bolus; Site: right forearm; jh5 12:10 Drug: Insulin Regular Human 5 units {Co-Signature: ss (Ilene Sheriff RN).} Route: IVP; [facility] Site: right antecubital; Outcome: 13:46 Discharge ordered by . imelda 13:55 Patient left the ED. [facility] Signatures: Dispatcher [employer] Randi Green Jonathon, RN RN jd3 Mic Clark MD MD ma2 Sylvie Saba RN RN [facility] Ilene Sheriff RN ss
--- NOTE | 2021-03-15 13:47 | EDPHYS ---
Physician Documentation [facility] Name: Sanjeev Mcpherson Age: 50 yrs Sex: Male : 1970 Arrival Date: 03/15/2021 Time: 08:36 Bed 10 Private MD: Steven [facility] ED Physician Mic Clark HPI: 03/15 09:07 This 50 yrs old Male presents to ER via Ambulatory with complaints of ma2 Headache, Worst Ever, bodyaches. 09:09 This 50 yrs old Male presents to ER via Ambulatory with complaints of ma2 Headache, Worst Ever, bodyaches. 09:09 The patient complains of pain to the forehead. Onset: The symptoms/episode ma2 began/occurred gradually, 1 day(s) ago, 1 week(s) ago. Associated signs and symptoms: Pertinent negatives: dizziness, fever, malaise, nausea, neck stiffness, paresthesias, Photophobia vision loss, vomiting, vertigo. Severity of symptoms: At its worst the pain was moderate, in the emergency department the pain is unchanged. Headache History: The patient has had previous headaches. The patient has not experienced similar symptoms in the past. 50-year-old male, history of brain cancer, here with headache, gradual for 2 days he had similar headache in the past, patient has MRI scheduled today, headache is a gradual unchanged from prior headaches.. 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 - Social history:: Smoking status: Patient denies any tobacco usage or history of. - Family history:: not pertinent. ROS: 09:09 Constitutional: Negative for fever, chills, and weight loss. ma2 09:09 All other systems are negative. Exam: 09:09 Constitutional: This is a well developed, well nourished patient who is awake, alert, ma2 and in no acute distress. Head/Face: Normocephalic, atraumatic. Eyes: Pupils equal round and reactive to light, extra-ocular motions intact. Lids and lashes normal. Conjunctiva and sclera are non-icteric and not injected. Cornea within normal limits. Periorbital areas with no swelling, redness, or edema. ENT: Nares patent. No nasal discharge, no septal abnormalities noted. Tympanic membranes are normal and external auditory canals are clear. Oropharynx with no redness, swelling, or masses, exudates, or evidence of obstruction, uvula midline. Mucous membranes moist. Neck: Trachea midline, no thyromegaly or masses palpated, and no cervical lymphadenopathy. Supple, full range of motion without nuchal rigidity, or vertebral point tenderness. No Meningismus. Chest/axilla: Normal chest wall appearance and motion. Nontender with no deformity. No lesions are appreciated. Cardiovascular: Regular rate and rhythm with a normal S1 and S2. No gallops, murmurs, or rubs. Normal PMI, no JVD. No pulse deficits. Respiratory: Lungs have equal breath sounds bilaterally, clear to auscultation and percussion. No rales, rhonchi or wheezes noted. No increased work of breathing, no retractions or nasal flaring. Abdomen/GI: Soft, non-tender, with normal bowel sounds. No distension or tympany. No guarding or rebound. No evidence of tenderness throughout. Skin: Warm, dry with normal turgor. Normal color with no rashes, no lesions, and no evidence of cellulitis. MS/ Extremity: Pulses equal, no cyanosis. Neurovascular intact. Full, normal range of motion. Neuro: Awake and alert, GCS 15, oriented to person, place, time, and situation. Cranial nerves II-XII grossly intact. Motor strength 5/5 in all extremities. Sensory grossly intact. Cerebellar exam normal. Normal gait. Vital Signs: 08:45 BP 134 / 90; Pulse 117; Resp 18 S; Temp 98.3(TE); Pulse Ox 97% on R/A; Weight 90.72 kg jd3 (R); Height 5 ft. 6 in. (167.64 cm) (R); Pain 10/10; 08:45 Body Mass Index 32.28 (90.72 kg, 167.64 cm) jd3 MDM: 08:55 Patient medically screened. ma2 13:42 Differential diagnosis:. Data reviewed: vital signs, nurses notes, EMS record, nursing [facility] home records. Counseling: I had a detailed discussion with the patient and/or guardian regarding: the historical points, exam findings, and any diagnostic results supporting the discharge/admit diagnosis, the presence of at least one elevated blood pressure reading (>120/80) during this emergency department visit, the need for outpatient follow up. Response to treatment: the patient's symptoms have markedly improved after treatment. ED course: MRI shows no new findings, he will follow-up with his PCP appointment scheduled in 2 days. 03/15 09:08 Order name: Basic Metabolic Panel; Complete Time: 11:21 03/15 09:08 Order name: CBC with Diff; Complete Time: :03/15 09:08 Order name: Protime (+inr); Complete Time: :21 03/15 09:08 Order name: Ptt, Activated; Complete Time: : nc03/15 09:15 Order name: MRI - Brain Wo Cont; Complete Time: 13:30 03/15 09:08 Order name: Accucheck; Complete Time: 09:33 03/15 09:08 Order name: EKG - Nurse/Tech; Complete Time: 10:01 03/15 09:08 Order name: IV Saline Lock; Complete Time: :23 03/15 09:08 Order name: Labs collected and sent; Complete Time: :23 03/15 09:08 Order name: O2 Per Protocol; Complete Time: 09:14 03/15 09:08 Order name: O2 Sat Monitoring; Complete Time: 09:14 03/15 10:01 Order name: Labs - recollect needed: basic only per lab; Complete Time: 10:27 ss Administered Medications: 11:09 Discontinued: NS 0.9% 1000 ml IV at 125 ml/hr continuous 5 09:31 Drug: Zofran (Ondansetron) 4 mg Route: IVP; Site: right forearm; 5 09:32 Drug: NS 0.9% 1000 ml Route: IV; Rate: 125 ml/hr; Site: right antecubital; 5 09:32 Drug: Reglan (metoCLOPramide) 20 mg Route: IVP; Site: right forearm; [facility] 09:32 Drug: Dilaudid (HYDROmorphone) 1 mg Route: IVP; Site: right forearm; [facility] 11:28 Drug: NS 0.9% 2000 ml Route: IV; Rate: 1 bolus; Site: right forearm; [facility] 12:10 Drug: Insulin Regular Human 5 units {Co-Signature: ss (Ilene Sheriff RN).} Route: IVP; [facility] Site: right antecubital; Disposition Summary: 03/15/21 13:46 Discharge Ordered Location: Home ma2 Condition: Stable ma2 Diagnosis - Hyperglycemia, unspecified ma2 - Headache ma2 Followup: ma2 - With: Private Physician - When: Tomorrow - Reason: If symptoms return, Continuance of care Discharge Instructions: - Discharge Summary Sheet ma2 - Diabetes Basics ma2 Forms: - Medication Reconciliation Form ma2 - Thank You Letter ma2 - Antibiotic Education ma2 - Prescription Opioid Use ma2 Prescriptions: - Diclofenac Sodium 75 mg Oral Tablet Sustained Release - take 1 tablet by ORAL route 2 times per day; 30 tablet; Refills: 0, Product ma2 Selection Permitted Signatures: Dispatcher [employer] Ilene Hester RN RN ss Kai Boggs RN RN jd3 Alzahri, Mohammad, MD MD nc2 Sylvie Saba RN RN 5 Ilene Sheriff RN ss
[2021-03-15 14:00] VITALS: BP 134/90; TEMP 98.3; O2SAT 97
== END 2021-03-15 13:55 | disposition home or self-care (01) ==
LOC: ER 08:35
DX: E11.65 Type 2 diabetes mellitus with hyperglycemia (principal); I10 Essential (primary) hypertension; Z88.4 Allergy status to anesthetic agent; Z91.048 Other nonmedicinal substance allergy status
CPT/HCPCS: 36415; 70551; 80048; 85025; 85610; 85730; 93005; 99283; J1170; J2405; J2765; J7030

== ENCOUNTER 2021-08-04 14:20 | Emergency (ER) | payer OTHER, SELFPAY ==
--- OUTSIDE RECORDS SUMMARY | 2021-08-04 14:24 | XMS REPORT | Continuity of Care Document ---
:1970 Author Organization [facility] t Address [address] [place] [address] Care Team Providers Name Role Phone Rody Harris Attending Clinician Unavailable Payers Payer Name Policy Type Policy Number Effective Date Expiration Date S ource Problems This patient has no known problems. Allergies, Adverse Reactions, Alerts Allergy Allergy Status Severity Reaction(s) Onset Inactive Treating Comm ents Source Name Type Date Date Clinician iodine DA Active U 2018-0 [facility] 00:00: d 00 [facility] ziprasid DA Active SV 2018-0 [facility] one 06-05 [facility] 00:00: d 00 [facility] Medications Ordered Filled Start Stop Current Ordering Indication Dosage Frequency Signature Comments Components Source Medication Medication Date Date Medication? Clinician (SIG) Name Name Atorvastati Atorvastati Yes Ramon TAKE 1 Common n Calcium n Calcium Harris TABLET BY [facility] MOUTH ONCE - [facility] DAILY [facility] Novolin Novolin Yes Ramon 30 units Com mon 70/30 70/30 Harris in the [facility] morning , - [facility] [address] [facility] evening [facility] Vitamin D Vitamin D Yes Ramon TAKE 1 C ommon (Ergocalcif (Ergocalcif Harris CAPSULE BY [facility] mirian) mirian) MOUTH ONCE - [facility] A WEEK [facility] Lisinopril Lisinopril Yes Ramon TAKE 1 Common Harris TABLET BY [facility] MOUTH ONCE - [facility] DAILY [facility] Procedures This patient has no known procedures. Encounters Start End Encounter Admission Attending Care Care Encounter Source Date/Time Date/Time Type Type Clinicians Facility Department ID 2021-06-12 Outpatient Harris, STLMLC STLMLC [id number] Common 08:39:02 Ramon [facility] 2021-04-04 Outpatient Harris, STLMLC STLMLC [id number] Common 09:42:01 Ramon [facility] 2021-03-20 Outpatient Harris, STLMLC STLMLC [id number] Common 07:56:00 Ramon [facility] 2021-03-16 Outpatient Harris, STLMLC STLMLC [id number] Common 11:00:02 Ramon [facility] 2021-03-15 Outpatient Harris, STLMLC STLMLC [id number] Common 14:13:57 Ramon [facility] 2021-03-15 Outpatient Harris, STLMLC STLMLC [id number] Common 14:12:32 Ramon [id number] [facility] 2021-03-15 Outpatient Harris, STLMLC STLMLC [id number] Common 13:53:19 Ramon 60814 [facility] 2021-03-15 Outpatient Harris, STLMLC STLMLC [id number] Common 13:19:14 Ramon 09625 [facility] 2021-03-15 Outpatient Harris, STLMLC STLMLC [id number] Common 13:01:24 Ramon 56638 [facility] 2021-03-15 Outpatient Harris, STLMLC STLMLC [id number] Common 12:54:29 Ramon 34176 [facility] 2021-03-15 Outpatient Harris, STLMLC STLMLC [id number] Common 12:43:28 Ramon 47099 [facility] 2021-03-15 Outpatient Harris, STLMLC STLMLC [id number] Common 12:42:21 Ramon [id number] [facility] 2021-03-15 Outpatient Harris, STLMLC STLMLC [id number] Common 12:41:34 Ramon 18802 [facility] 2021-03-15 Outpatient Harris, STLMLC STLMLC [id number] Common 12:41:12 Ramon 83760 [facility] 2021-03-15 Outpatient Harris, STLMLC STLMLC [id number] Common 12:31:21 Ramon 88087 [facility] 2021-03-15 Outpatient Harris, STLMLC STLMLC [id number] Common 12:14:34 Ramon 10377 [facility] 2021-03-15 Outpatient Harris, STLMLC STLMLC [id number] Common 12:04:53 Ramon 72538 [facility] 2021-03-15 Outpatient Harris, STLMLC STLMLC [id number] Common 12:04:45 Ramon 92166 [facility] 2021-03-15 Outpatient Harris, STLMLC STLMLC [id number] Common 11:32:39 Ramon 17793 [facility] 2021-03-15 Outpatient Harris, STLMLC STLMLC [id number] Common 11:22:17 Ramon 80431 [facility] 2021-04-19 2021-04-19 ambulatory STLMLC STLMLC [id number] Common 00:00:00 00:00:00 [facility] 2021-04-18 2021-04-18 ambulatory STLMLC STLMLC [id number] Common 00:00:00 00:00:00 [facility] 2021-03-20 2021-03-20 ambulatory STLMLC STLMLC [id number] Common 00:00:00 00:00:00 [facility] 2021-03-16 2021-03-16 ambulatory STLMLC STLMLC [id number] Common 00:00:00 00:00:00 [facility] 2021-03-16 2021-03-16 ambulatory STLMLC STLMLC [id number] Common 00:00:00 00:00:00 [facility] 2021-02-21 2021-02-21 ambulatory STLMLC STLMLC [id number] Common 00:00:00 00:00:00 [facility] 2021-01-03 2021-01-03 ambulatory STLMLC STLMLC [id number] Common 00:00:00 00:00:00 [facility] 2020-11-29 2020-11-29 Outpatient STLMLC STLMLC [id number] Common 00:00:00 00:00:00 [facility] 2020-11-25 2020-11-25 ambulatory STLMLC STLMLC [id number] Common 00:00:00 00:00:00 [facility] 2020-11-24 2020-11-24 Outpatient STLMLC STLMLC [id number] Common 00:00:00 00:00:00 [facility] 2020-11-16 2020-11-16 Outpatient STLMLC STLMLC [id number] Common 00:00:00 00:00:00 [facility] 2020-11-14 2020-11-14 Outpatient STLMLC STLMLC [id number] Common 00:00:00 00:00:00 [facility] 2020-11-14 2020-11-14 Outpatient STLMLC STLMLC [id number] Common 00:00:00 00:00:00 [facility] 2020-10-12 2020-10-12 Outpatient STLMLC STLMLC [id number] Common 00:00:00 00:00:00 [facility] 2020-09-14 2020-09-14 Outpatient STLMLC STLMLC [id number] Common 00:00:00 00:00:00 [facility] 2020-08-15 2020-08-15 Outpatient STLMLC STLMLC [id number] Common 00:00:00 00:00:00 [facility] 2020-08-02 2020-08-02 Outpatient STLMLC STLMLC [id number] Common 00:00:00 00:00:00 [facility] 2020-08-01 2020-08-01 Outpatient STLMLC STLMLC [id number] Common 00:00:00 00:00:00 [facility] 2020-06-27 2020-06-27 Outpatient STLMLC STLMLC [id number] Common 00:00:00 00:00:00 [facility] 2020-06-08 2020-06-08 Outpatient STLMLC STLMLC [id number] Common 00:00:00 00:00:00 [facility] 2020-06-02 2020-06-02 Outpatient STLMLC STLMLC [id number] Common 00:00:00 00:00:00 [facility] 2020-05-09 2020-05-09 Outpatient STLMLC STLMLC [id number] Common 00:00:00 00:00:00 [facility] 2020-05-04 2020-05-04 Outpatient STLMLC STLMLC [id number] Common 00:00:00 00:00:00 [facility] 2020-05-04 2020-05-04 Outpatient STLMLC STLMLC [id number] Common 00:00:00 00:00:00 [facility] 2020-04-08 2020-04-08 Outpatient STLMLC STLMLC [id number] Common 00:00:00 00:00:00 [facility] 2020-02-08 2020-02-08 Outpatient STLMLC STLMLC [id number] Common 00:00:00 00:00:00 [facility] 2019-12-31 2019-12-31 Outpatient STLMLC STLMLC [id number] Common 00:00:00 00:00:00 [facility] 2019-11-11 2019-11-11 Outpatient STLMLC STLMLC [id number] Common 00:00:00 00:00:00 [facility] 2019-11-11 2019-11-11 Outpatient STLMLC STLMLC [id number] Common 00:00:00 00:00:00 [facility] 2019-10-28 2019-10-28 Outpatient [facility] [id number] Common 13:20:00 13:20:[address] [facility] [address] [facility] 2019-08-07 2019-08-07 Outpatient Penelope Corrales [id number] Common 10:43:00 10:43:00 t [facility] [address] [facility] 2019-07-06 2019-07-06 Outpatient Penelope Corrales [id number] Common 14:00:00 14:00:[address] [employer] [address] [facility] Results Test Description Test Time Test Comments [...] NG/ML are obtained. - CT HEAD/BRAIN W/O [id number] 15:20:00 FAX: Colleen Mckenzie MD [phone] [place]: St: REG Name: MICHELLE FISHER [facility] : 1970 Age/S: 48/M [address] Unit: [id number] Loc: [place] [address] Phys: Colleen Mckenzie MD Acct: [id number] Dis Date: Status: REG ER PHONE #: [phone] Exam Date: 06/05/2018 1510 FAX #: [phone] Reason: june, h/o brain ca EXAMS: CPT CODE: [id number] CT HEAD/BRAIN W/O CONT 64245 Location: T18 CT head, 06/05/18 COMPARISON EXAMS:None of the brain TECHNIQUE: CT examination of the brain was performed without contrast on a helical scanner. Scanning conducted from skull base to vertex in the axial plane acquiring contiguous 5mm slice thickness . The examination was performed on a [facility] helical CT scanner utilizing low-dose radiation technique. [...] Signed Report (CONTINUED) FAX: Colleen Mckenzie MD [phone] [place]: St: REG Name: MICHELLE FISHER [facility] : 1970 Age/S: 48/M [address] Unit: [id number] Loc: [place] [address] Phys: Colleen Mckenzie MD Acct: [id number] Dis Date: Status: REG ER PHONE #: [phone] Exam Date: 06/05/2018 1510 FAX #: [phone] Reason: june, h/o brain ca EXAMS: CPT CODE: [id number] CT HEAD/BRAIN W/O CONT 44782 <Continued> at 1520 Reported and signed by: Janeen Chacon MD CC: Colleen Mckenzie MD Technologist: CHIDI KATZ Trnscrd Dt/Tm: 06/05/2018 (1520) [email or web address] Orig Print D/T: S: 06/05/2018 (1523 PAGE 2 Signed ReportBASIC METABOLIC [id number] 15:18:00 Test Item Value Reference Range Interpretation [...] 9.3 mg/dL 8.4-10.2 N CA) LIVER FUNCTION [id number] 15:18:00 Test Item Value Reference Range Interpretation [...] U/L 38-126 H (test code = ALKP) [id number] 15:18:00 Test Item Value Reference Range Interpretation Comments LIPASE (test code = LIP) 133 U/L 23-300 N BASIC METABOLIC [id number] 15:16:00 Test Item Value Reference Range Interpretation [...] 9.3 mg/dL 8.4-10.2 N CA) LIVER FUNCTION [id number] 15:16:00 Test Item Value Reference Range Interpretation [...] U/L 38-126 H (test code = ALKP) [id number] 15:16:00 Test Item Value Reference Range Interpretation Comments LIPASE (test code = LIP) U/L 23-300 PROTHROMBIN [id number] 15:07:00 Test Item Value Reference Range Interpretation [...] - 3.0 Atrial fibrillation 2.0 - 3.03. Sinter Feeder al prosthetic valv es (high risk) 2.5 - 3.5 * If oral anticoagulant t herapy is elected to preventrecurren t myocardial infa rction, an INR of 2.5-3 .5 isrecommended, consistent with Food and Drug Administrationr ecommen dations. THROMBOPLASTIN TIME [id number] 15:07:00 Test Item Value Reference Range Interpretation Comments THROMBOPLASTIN TIME 25.6 SECONDS 23.4-37.0 N Therap eutic Range PARTIAL (test code = for Hep hamilton PTT) EFFECTIVE Heparin IU/mL aPT T Seconds0.3 64.30.7 88.8 CBC W/AUTO [id number] 15:02:00 Test Item Value Reference Range Interpretation [...] 0.03 x10 3/uL 0.0-0.1 N LACTIC ACID [id number] 15:01:00 Test Item Value Reference Range Interpretation Comments LACTIC ACID POC (test code = 1.17 mmol/L 0.7-2.0 N LACTP) TROPONIN I [id number] 15:01:00 Test Item Value Reference Range Interpretation [...] methodology is used. - XR CHEST 1 [id number] 14:53:00 [place]: St: REG Name: MICHELLE FISHER Carrillo [facility] : 1970 Age/S: 48/M [address] Unit#: [id number] Loc: [place] [address] Phys: Isaias Gruber Acct: [id number] Dis Date: Status: REG ER PHONE #: [phone] Exam Date: 06/05/2018 1440 FAX #: [phone] Reason: CODE SEPSIS EXAMS: CPT CODE: [id number] XR CHEST 1 V 62901 EXAM: Portable chest x-ray, one view INDICATION: [...] basilar atelectasis and or early infiltrate at 4080 Reported and signed by: Rodolfo Kim M.D. CC: Technologist: KYARA KHANNA (R) Trnscrd Date/Time/By: 06/05/2018 (6320) : By: [email or web address] PAGE 1 Signed Report [place]: St: REG Name: MICHELLE FISHER [facility] : 1970 Age/S: 48/M [address] Unit #: [id number] Loc: [place] [address] Phys: Isaias Gruber Acct: [id number] Dis Date: Status: REG ER PHONE #: [phone] Exam Date: 06/05/2018 1440 FAX #: [phone] Reason: CODE SEPSIS EXAMS: CPT CODE: [id number] XR CHEST 1 V 32021 < Continued> Orig Print D/T: S: 06/05/2018 (1457) PAGE 2 Signed Report
[2021-08-04] MEDS ORDERED: IBUPROFEN 400 MG TAB ONE (15:03)
[2021-08-04] MEDS ORDERED: IBUPROFEN 200 MG TAB PO ONE (15:03)
[2021-08-04] MEDS ORDERED: ONDANSETRON 4 MG/2 ML VIAL ONE ×2 (15:04→17:46)
[2021-08-04 15:31] LABS: Absolute Lymphocytes (CBC) 1.6 K/uL (0.7-4.9); Hematocrit 47.3 % (39.6-49.0); Lymphocytes % 38.2 % (15.3-44.8); MPV 6.9 fL (7.6-11.3); RBC Red Blood Cell Count 5.13 M/uL (4.33-5.43)
--- NOTE | 2021-08-04 15:39 | RAD REPORT ---
EXAM DESCRIPTION: RAD - Chest Single View - 08/04/2021 3:17 pm CLINICAL HISTORY: sob, cough COMPARISON: Chest Single View dated 11/25/2020; Chest Pa And Lat (2 Views) dated 11/30/2019; Chest Pa And Lat (2 Views) dated 01/07/2019; Chest Single View dated 07/05/2018 FINDINGS: Lines: None. Lungs: No evidence of edema or pneumonia. Pleural: No significant pleural effusions or pneumothorax. Cardiac: The heart size is within normal limits. Bones: No acute fractures. Other: IMPRESSION: No acute cardiopulmonary disease.
[2021-08-04 15:46] LABS: Potassium 4.1 mmol/L (3.5-5.1); Troponin High Sensitivity 12.6 pg/mL (<58.9)
[2021-08-04] MEDS ORDERED: MORPHINE 4 MG/ML SYR ONE ×2 (15:53→17:45)
[2021-08-04] MEDS ORDERED: NA CHLORIDE 0.9% 1,000 ML ONE (17:46)
[2021-08-04] MEDS ORDERED: MECLIZINE HCL 12.5 MG TAB ONE (17:46)
[2021-08-04] MEDS ORDERED: KETOROLAC 30 MG/ML INJ ONE (17:46)
--- NOTE | 2021-08-04 18:21 | EDPHYS ---
Physician Documentation [facility] Name: Sanjeev Mcpherson Age: 51 yrs Sex: Male : 1970 Arrival Date: 08/04/2021 Time: 14:22 Bed 14 Private MD: ED Physician Mic Clark HPI: 08/04 14:34 This 51 yrs old Male presents to ER via Ambulatory with complaints of jmm Headache, Ear Pain, Vomiting/Diarrhea. 14:34 The patient or guardian reports cough. Onset: The symptoms/episode began/occurred jmm gradually, 1 week(s) ago. Modifying factors: The symptoms are alleviated by nothing. the symptoms are aggravated by nothing. 14:34 This is a 51-year-old male with history of brain tumor, diabetes mellitus, jmm hyperlipidemia, hypertension the presents emerged department with complaints of headache, cough, congestion, diarrhea which has been ongoing for approximately a week. Patient states he got it from a family member.. Historical: - Allergies: 14:26 Adhesives; tape; aa5 14:26 Anesthetics - Amide Type; aa5 14:26 Iodine; aa5 - PMHx: 14:26 BRAIN TUMOR; Cancer; Diabetes - NIDDM; Hyperlipidemia; Hypertension; Lung Cancer; "I aa5 only have 1 lung that works"; - PSHx: 14:26 hernia repair; Brain tumor removed; aa5 - Immunization history:: Adult Immunizations unknown. - Social history:: Smoking status: Patient reports the use of cigarette tobacco products, smokes one-half pack cigarettes per day. ROS: 14:34 Constitutional: Positive for body aches, chills. jmm 14:34 ENT: Positive for sore throat. 14:34 Abdomen/GI: Positive for vomiting. 14:34 Neuro: Positive for headache. 14:34 All other systems are negative. Exam: 14:34 Constitutional: This is a well developed, well nourished patient who is awake, alert, jmm and in no acute distress. Head/Face: atraumatic. Eyes: EOMI, no conjunctival erythema appreciated ENT: Moist Mucus Membranes Neck: Trachea midline, Supple Chest/axilla: Normal chest wall appearance and motion. Cardiovascular: Regular rate and rhythm. No edema appreciated Respiratory: Normal respirations, no respiratory distress appreciated Abdomen/GI: Non distended, soft Back: Normal ROM Skin: General appearance color normal MS/ Extremity: Moves all extremities, no obvious deformities appreciated, no edema noted to the lower extremities Neuro: Awake and alert Psych: Behavior is normal, Mood is normal, Patient is cooperative and pleasant Vital Signs: 14:25 BP 163 / 95; Pulse 89; Resp 16 S; Temp 98.2(O); Pulse Ox 100% on R/A; Weight 92.99 kg aa5 (R); Height 5 ft. 0 in. (152.40 cm) (R); 16:00 BP 152 / 78; Pulse 81; Resp 18; Pulse Ox 99% on R/A; ph 17:30 BP 142 / 78; Pulse 86; Resp 18; Temp 97.9; Pulse Ox 98% on R/A; ph 14:25 Body Mass Index 40.04 (92.99 kg, 152.40 cm) aa5 MDM: 14:34 Patient medically screened. [facility] 18:20 Data reviewed: vital signs, nurses notes. Counseling: I had a detailed discussion with dinorah the patient and/or guardian regarding: the historical points, exam findings, and any diagnostic results supporting the discharge/admit diagnosis, lab results, radiology results, the need for outpatient follow up, to return to the emergency department if symptoms worsen or persist or if there are any questions or concerns that arise at home. 23:02 ED course: Patient is alert patient is alert and nontoxic in appearance NAD. No signs jm of respiratory distress. Vital signs within normal limits. Patient advised follow-up PCP otherwise given strict return precautions. Patient understood and agrees with the plan of care. . 08/04 14:36 Order name: Basic Metabolic Panel; Complete Time: 16:10 [facility] 08/04 14:36 Order name: CBC with Diff; Complete Time: 16:10 [facility] 08/04 14:36 Order name: Troponin HS; Complete Time: 16:10 [facility] 08/04 14:38 Order name: SARS-COV-2 RT PCR (Document "Date of Onset" if Symptomatic); Complete Time: [facility] 17:34 08/04 14:38 Order name: Influenza Screen (a \\T\\ B); Complete Time: 16:53 [facility] 08/04 14:38 Order name: Strep; Complete Time: 16:53 [facility] 08/04 14:36 Order name: XRAY Chest (1 view); Complete Time: 16:10 [facility] 08/04 14:36 Order name: EKG; Complete Time: 14:37 [facility] 08/04 14:36 Order name: Cardiac monitoring; Complete Time: 15:19 [facility] 08/04 16:47 Order name: Throat Culture [facility] 08/04 14:36 Order name: EKG - Nurse/Tech; Complete Time: 16:01 [facility] 08/04 14:36 Order name: IV Saline Lock; Complete Time: 15:19 [facility] 08/04 14:36 Order name: Labs collected and sent; Complete Time: 15:19 [facility] 08/04 14:36 Order name: O2 Per Protocol; Complete Time: 15:19 [facility] 08/04 14:36 Order name: O2 Sat Monitoring; Complete Time: 15:19 [facility] Administered Medications: 15:15 Drug: Zofran (Ondansetron) 4 mg Route: IVP; Site: right forearm; ph 15:30 Follow up: Response: No adverse reaction ph 15:19 Drug: Ibuprofen 400 mg Route: PO; ph 15:30 Follow up: Response: No adverse reaction ph 16:01 Drug: morphine 4 mg Route: IVP; Infused Over: 4 mins; Site: right forearm; ph 16:30 Follow up: Response: No adverse reaction; Pain is decreased; RASS: Alert and Calm (0) ph 17:51 Drug: morphine 4 mg Route: IVP; Infused Over: 4 mins; Site: right forearm; ph 18:00 Follow up: Response: No adverse reaction; Pain is decreased ph Disposition: 08/05 08:10 Co-signature as Attending Physician, Mic Clark MD I agree with the assessment ma2 and plan of care. Disposition Summary: 08/04/21 18:21 Discharge Ordered Location: Home [facility] Condition: Stable [facility] Diagnosis - Coronavirus infection, unspecified [facility] Followup: [facility] - With: Private Physician - When: 2 - 3 days - Reason: Recheck today's complaints, Continuance of care, Re-evaluation by your physician Discharge Instructions: - Discharge Summary Sheet [facility] - COVID-19 [facility] Forms: - Medication Reconciliation Form [facility] - Thank You Letter [facility] - Antibiotic Education [facility] - Prescription Opioid Use [facility] Prescriptions: - PAXLOVID - take 1 application by ORAL route 2 times per day renal dosing please; 1 dose [facility] pack; Refills: 0, Product Selection Permitted - promethazine-DM - take 10 milliliter by ORAL route every 4-6 hours; 200 milliliter; Refills: 0, jmm Product Selection Permitted Signatures: Dispatcher [employer] Mihir Greer PA PA jmm Calderon, Audri, RN RN aa5 Vianca Gallardo RN RN Mic Clark MD MD ma2 Corrections: (The following items were deleted from the chart) 08/04 14 14:26 PMHx: "I only have one lung"; aa5 aa5 14 14:26 Social history: Smoking status: Patient reports the use of cigarette tobacco aa5 products, denies chronic smoking, but will smoke occasionally, aa5
--- NOTE | 2021-08-04 18:21 | ER ---
Nurse's Notes [facility] Name: Sanjeev Mcpherson Age: 51 yrs Sex: Male : 1970 Arrival Date: 08/04/2021 Time: 14:22 Bed 14 Private MD: Diagnosis: Coronavirus infection, unspecified Presentation: 08/04 14:25 Chief complaint: Patient states: headache, vomiting, diarrhea, congestion, runny nose, aa5 right ear pain, chest pain with cough that began 1 week ago. Onset of symptoms was July 2021. 14:25 Acuity: JULIANNE 3 aa5 14:25 Method Of Arrival: Ambulatory aa5 14:25 Coronavirus screen: congestion, cough unrelated to allergies, diarrhea, vomiting. Ebola aa5 Screen: No symptoms or risks identified at this time. Initial Sepsis Screen: Does the patient meet any 2 criteria? No. Patient's initial sepsis screen is negative. Does the patient have a suspected source of infection? No. Patient's initial sepsis screen is negative. Risk Assessment: Do you want to hurt yourself or someone else? Patient reports no desire to harm self or others. Historical: - Allergies: 14:26 Adhesives; tape; aa5 14:26 Anesthetics - Amide Type; aa5 14:26 Iodine; aa5 - PMHx: 14:26 BRAIN TUMOR; Cancer; Diabetes - NIDDM; Hyperlipidemia; Hypertension; Lung Cancer; "I aa5 only have 1 lung that works"; - PSHx: 14:26 hernia repair; Brain tumor removed; aa5 - Immunization history:: Adult Immunizations unknown. - Social history:: Smoking status: Patient reports the use of cigarette tobacco products, smokes one-half pack cigarettes per day. Screenin:00 Abuse screen: Denies threats or abuse. Denies injuries from another. Nutritional ph screening: No deficits noted. Tuberculosis screening: No symptoms or risk factors identified. Fall Risk None identified. Assessment: 15:00 General: Appears in no apparent distress. uncomfortable, Behavior is cooperative, ph appropriate for age, fussy, Denies fever, chills. Pain: Complains of pain in head, chest, back, ears, and throat. Neuro: Level of Consciousness is awake, alert, obeys commands, Oriented to person, place, time, situation. Cardiovascular: Capillary refill < 3 seconds in bilateral fingers Patient's skin is warm and dry. Respiratory: Airway is patent Respiratory effort is even, unlabored, Respiratory pattern is regular, symmetrical. Respiratory: Reports cough that is. Derm: Skin is intact, Skin is pink, warm \\T\\ dry. Musculoskeletal: Circulation, motion, and sensation intact. Range of motion: intact in all extremities. Vital Signs: 14:25 BP 163 / 95; Pulse 89; Resp 16 S; Temp 98.2(O); Pulse Ox 100% on R/A; Weight 92.99 kg aa5 (R); Height 5 ft. 0 in. (152.40 cm) (R); 16:00 BP 152 / 78; Pulse 81; Resp 18; Pulse Ox 99% on R/A; ph 17:30 BP 142 / 78; Pulse 86; Resp 18; Temp 97.9; Pulse Ox 98% on R/A; ph 14:25 Body Mass Index 40.04 (92.99 kg, 152.40 cm) aa5 ED Course: 14:22 Patient arrived in ED. rg4 14:25 Arm band placed on. aa5 14:26 Triage completed. aa5 14:29 Mihir Odom PA is PHCP. [facility] 14:29 Mic Clark MD is Attending Physician. [facility] 14:34 Vianca Gallardo RN is Primary Nurse. ph 15:18 XRAY Chest (1 view) In Process Unspecified. EDMS 15:20 Initial lab(s) drawn, by me, sent to lab. Inserted saline lock: 22 gauge in right ph forearm, using aseptic technique. 16:00 Patient has correct armband on for positive identification. Bed in low position. Call ph light in reach. Side rails up X 1. Client placed on continuous cardiac and pulse oximetry monitoring. NIBP monitoring applied. 18:40 No provider procedures requiring assistance completed. IV discontinued, intact, ph bleeding controlled, No redness/swelling at site. Pressure dressing applied. Administered Medications: 15:15 Drug: Zofran (Ondansetron) 4 mg Route: IVP; Site: right forearm; ph 15:30 Follow up: Response: No adverse reaction ph 15:19 Drug: Ibuprofen 400 mg Route: PO; ph 15:30 Follow up: Response: No adverse reaction ph 16:01 Drug: morphine 4 mg Route: IVP; Infused Over: 4 mins; Site: right forearm; ph 16:30 Follow up: Response: No adverse reaction; Pain is decreased; RASS: Alert and Calm (0) ph 17:51 Drug: morphine 4 mg Route: IVP; Infused Over: 4 mins; Site: right forearm; ph 18:00 Follow up: Response: No adverse reaction; Pain is decreased ph Medication: 16:00 VIS not applicable for this client. ph Outcome: 18:21 Discharge ordered by . dinorah 18:42 Patient left the ED. [facility] 18:42 Discharged to home ambulatory, with significant other. ph 18:42 Condition: good 18:42 Discharge instructions given to patient, significant other, Instructed on discharge instructions, follow up and referral plans. medication usage, Demonstrated understanding of instructions, follow-up care, medications, Prescriptions given X 2. Signatures: Dispatcher [employer] EDMS Mihir Odom PA PA jmm Calderon, Audri, RN RN aa5 Vianca Gallrado RN RN ph Garcia, Rubi [facility] Ana Tobias [facility] Corrections: (The following items were deleted from the chart) 14: 14:26 PMHx: "I only have one lung"; aa5 aa5 14:27 14:26 Social history: Smoking status: Patient reports the use of cigarette tobacco aa5 products, denies chronic smoking, but will smoke occasionally, aa5
[2021-08-04 18:46] VITALS: BP 163/95; TEMP 98.2; O2SAT 100
--- NOTE | 2021-08-07 11:56 | EKG ---
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
== END 2021-08-04 18:42 | disposition home or self-care (01) ==
LOC: ER 14:20
DX: U07.1 COVID-19 (principal); I10 Essential (primary) hypertension; F17.210 Nicotine dependence, cigarettes, uncomplicated; Z85.118 Personal history of other malignant neoplasm of bronchus and lung; Z85.841 Personal history of malignant neoplasm of brain; Z88.4 Allergy status to anesthetic agent; Z91.048 Other nonmedicinal substance allergy status
CPT/HCPCS: 36415; 71045; 80048; 84484; 85025; 87070; 87081; 87804; 93005; 96374; 96375; 99284; J2405; J7030; J8597; U0003

== ENCOUNTER 2022-03-06 09:19 | Emergency (ER) | payer SELFPAY ==
--- OUTSIDE RECORDS SUMMARY | 2022-03-06 09:26 | XMS REPORT | Continuity of Care Document ---
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 UT) Lisinopril Lisinopril No QD Lisinopril 20 MG 20 MG 20 MG Lisinopril Lisinopril No QD Lisinopril 20 MG 20 MG 20 MG Atorvastati Atorvastati No QD Atorvastat n Calcium n Calcium in Calcium 40 MG 40 MG 40 MG NovoLIN NovoLIN No QD NovoLIN 70/30 70/30 70/30 (70-30) 100 (70-30) 100 (70-30) UNIT/ML UNIT/ML 100 UNIT/ML Vitamin D Vitamin D No QD Vitamin D (Ergocalcif (Ergocalcif (Ergocalci mirian) 1.25 mirian) 1.25 ferol) MG (06592 MG (58233 1.25 MG UT) UT) (68577 UT) Vitamin D Vitamin D No QD Vitamin D (Ergocalcif (Ergocalcif (Ergocalci imrian) 1.25 mirian) 1.25 ferol) MG (70255 MG (67238 1.25 MG UT) UT) (49187 UT) Lisinopril Lisinopril No QD Lisinopril 20 MG 20 MG 20 MG glipiZIDE glipiZIDE No 1{table BID glipiZIDE XL 5 MG XL 5 MG t_with_ XL 5 MG food} Atorvastati Atorvastati No QD Atorvastat n Calcium n Calcium in Calcium 40 MG 40 MG 40 MG NovoLIN NovoLIN No QD NovoLIN 70/30 70/30 70/30 (70-30) 100 (70-30) 100 (70-30) UNIT/ML UNIT/ML 100 UNIT/ML NovoLIN NovoLIN No QD NovoLIN 70/30 70/30 70/30 (70-30) 100 (70-30) 100 (70-30) UNIT/ML UNIT/ML 100 UNIT/ML Vitamin D Vitamin D No QD Vitamin D (Ergocalcif (Ergocalcif (Ergocalci mirian) 1.25 mirian) 1.25 ferol) MG (04868 MG (76814 1.25 MG UT) UT) (98812 UT) glipiZIDE glipiZIDE No 1{table BID glipiZIDE XL 5 MG XL 5 MG t_with_ XL 5 MG food} Breo Breo No 1{puff} QD Breo Ellipta Ellipta Ellipta 200-25 200-25 200-25 MCG/INH MCG/INH MCG/INH Lisinopril Lisinopril No QD Lisinopril 20 MG 20 MG 20 MG Atorvastati Atorvastati No QD Atorvastat n Calcium n Calcium in Calcium 40 MG 40 MG 40 MG NovoLIN NovoLIN No QD NovoLIN 70/30 70/30 70/30 (70-30) 100 (70-30) 100 (70-30) UNIT/ML UNIT/ML 100 UNIT/ML Vitamin D Vitamin D No QD Vitamin D (Ergocalcif (Ergocalcif (Ergocalci mirian) 1.25 mirian) 1.25 ferol) MG (05023 MG (27225 1.25 MG UT) UT) (63307 UT) glipiZIDE glipiZIDE No 1{table BID glipiZIDE XL 5 MG XL 5 MG t_with_ XL 5 MG food} Breo Breo No 1{puff} QD Breo Ellipta Ellipta Ellipta 200-25 200-25 200-25 MCG/INH MCG/INH MCG/INH Lisinopril Lisinopril No QD Lisinopril 20 MG 20 MG 20 MG Atorvastati Atorvastati No QD Atorvastat n Calcium n Calcium in Calcium 40 MG 40 MG 40 MG NovoLIN NovoLIN No QD NovoLIN 70/30 70/30 70/30 (70-30) 100 (70-30) 100 (70-30) UNIT/ML UNIT/ML 100 UNIT/ML Vitamin D Vitamin D No QD Vitamin D (Ergocalcif (Ergocalcif (Ergocalci mirian) 1.25 mirian) 1.25 ferol) MG (12356 MG (69310 1.25 MG UT) UT) (89793 UT) glipiZIDE glipiZIDE No 1{table BID glipiZIDE XL 5 MG XL 5 MG t_with_ XL 5 MG food} Breo Breo No 1{puff} QD Breo Ellipta Ellipta Ellipta 200-25 200-25 200-25 MCG/INH MCG/INH MCG/INH Lisinopril Lisinopril No QD Lisinopril 20 MG 20 MG 20 MG Atorvastati Atorvastati No QD Atorvastat n Calcium n Calcium in Calcium 40 MG 40 MG 40 MG Lisinopril Lisinopril No QD Lisinopril 20 MG 20 MG 20 MG NovoLIN NovoLIN No QD NovoLIN 70/30 70/30 70/30 (70-30) 100 (70-30) 100 (70-30) UNIT/ML UNIT/ML 100 UNIT/ML Vitamin D Vitamin D No QD Vitamin D (Ergocalcif (Ergocalcif (Ergocalci mirian) 1.25 mirian) 1.25 ferol) MG (63571 MG (42303 1.25 MG UT) UT) (89508 UT) Breo Breo No 1{puff} QD Breo Ellipta Ellipta Ellipta 200-25 200-25 200-25 MCG/INH MCG/INH MCG/INH glipiZIDE glipiZIDE No 1{table BID glipiZIDE XL 5 MG XL 5 MG t_with_ XL 5 MG food} Atorvastati Atorvastati No QD Atorvastat n Calcium n Calcium in Calcium 40 MG 40 MG 40 MG Lisinopril Lisinopril No QD Lisinopril 20 MG 20 MG 20 MG NovoLIN NovoLIN No QD NovoLIN 70/30 70/30 70/30 (70-30) 100 (70-30) 100 (70-30) UNIT/ML UNIT/ML 100 UNIT/ML Vitamin D Vitamin D No QD Vitamin D (Ergocalcif (Ergocalcif (Ergocalci mirian) 1.25 mirian) 1.25 ferol) MG (40463 MG (87976 1.25 MG UT) UT) (82798 UT) Breo Breo No 1{puff} QD Breo Ellipta Ellipta Ellipta 200-25 200-25 200-25 MCG/INH MCG/INH MCG/INH glipiZIDE glipiZIDE No 1{table BID glipiZIDE XL 5 MG XL 5 MG t_with_ XL 5 MG food} Atorvastati Atorvastati No QD Atorvastat n Calcium n Calcium in Calcium 40 MG 40 MG 40 MG Lisinopril Lisinopril No QD Lisinopril 20 MG 20 MG 20 MG NovoLIN NovoLIN No QD NovoLIN 70/30 70/30 70/30 (70-30) 100 (70-30) 100 (70-30) UNIT/ML UNIT/ML 100 UNIT/ML Vitamin D Vitamin D No QD Vitamin D (Ergocalcif (Ergocalcif (Ergocalci mirian) 1.25 mirian) 1.25 ferol) MG (80753 MG (49122 1.25 MG UT) UT) (92627 UT) Breo Breo No 1{puff} QD Breo Ellipta Ellipta Ellipta 200-25 200-25 200-25 MCG/INH MCG/INH MCG/INH glipiZIDE glipiZIDE No 1{table BID glipiZIDE XL 5 MG XL 5 MG t_with_ XL 5 MG food} Atorvastati Atorvastati No QD Atorvastat n Calcium n Calcium in Calcium 40 MG 40 MG 40 MG Breo Breo No 1{puff} QD Breo Ellipta Ellipta Ellipta 200-25 200-25 200-25 MCG/INH MCG/INH MCG/INH Atorvastati Atorvastati No QD Atorvastat n Calcium n Calcium in Calcium 40 MG 40 MG 40 MG Lisinopril Lisinopril No Lisinopril 20 MG 20 MG 20 MG Vitamin D Vitamin D No QD Vitamin D (Ergocalcif (Ergocalcif (Ergocalci mirian) 1.25 mirian) 1.25 ferol) MG (93306 MG (11547 1.25 MG UT) UT) (87043 UT) ProAir HFA ProAir HFA No 2{puffs ProAir HFA 108 (90 108 (90 _as_nee 108 (90 Base) Base) ded} Base) MCG/ACT MCG/ACT MCG/ACT NovoLIN NovoLIN No QD NovoLIN 70/30 70/30 70/30 (70-30) 100 (70-30) 100 (70-30) UNIT/ML UNIT/ML 100 UNIT/ML glipiZIDE glipiZIDE No 1{table BID glipiZIDE XL 5 MG XL 5 MG t_with_ XL 5 MG food} Breo Breo No 1{puff} QD Breo Ellipta Ellipta Ellipta 200-25 200-25 200-25 MCG/INH MCG/INH MCG/INH Atorvastati Atorvastati No QD Atorvastat n Calcium n Calcium in Calcium 40 MG 40 MG 40 MG Lisinopril Lisinopril No Lisinopril 20 MG 20 MG 20 MG Vitamin D Vitamin D No QD Vitamin D (Ergocalcif (Ergocalcif (Ergocalci mirian) 1.25 mirian) 1.25 ferol) MG (05076 MG (92609 1.25 MG UT) UT) (35085 UT) ProAir HFA ProAir HFA No 2{puffs ProAir HFA 108 (90 108 (90 _as_nee 108 (90 Base) Base) ded} Base) MCG/ACT MCG/ACT MCG/ACT NovoLIN NovoLIN No QD NovoLIN 70/30 70/30 70/30 (70-30) 100 (70-30) 100 (70-30) UNIT/ML UNIT/ML 100 UNIT/ML glipiZIDE glipiZIDE No 1{table BID glipiZIDE XL 5 MG XL 5 MG t_with_ XL 5 MG food} Breo Breo No 1{puff} QD Breo Ellipta Ellipta Ellipta 200-25 200-25 200-25 MCG/INH MCG/INH MCG/INH Atorvastati Atorvastati No QD Atorvastat n Calcium n Calcium in Calcium 40 MG 40 MG 40 MG Lisinopril Lisinopril No Lisinopril 20 MG 20 MG 20 MG Vitamin D Vitamin D No QD Vitamin D (Ergocalcif (Ergocalcif (Ergocalci mirian) 1.25 mirian) 1.25 ferol) MG (75581 MG (22145 1.25 MG UT) UT) (66492 UT) ProAir HFA ProAir HFA No 2{puffs ProAir HFA 108 (90 108 (90 _as_nee 108 (90 Base) Base) ded} Base) MCG/ACT MCG/ACT MCG/ACT NovoLIN NovoLIN No QD NovoLIN 70/30 70/30 70/30 (70-30) 100 (70-30) 100 (70-30) UNIT/ML UNIT/ML 100 UNIT/ML glipiZIDE glipiZIDE No 1{table BID glipiZIDE XL 5 MG XL 5 MG t_with_ XL 5 MG food} Breo Breo No 1{puff} QD Breo Ellipta Ellipta Ellipta 200-25 200-25 200-25 MCG/INH MCG/INH MCG/INH Atorvastati Atorvastati No QD Atorvastat n Calcium n Calcium in Calcium 40 MG 40 MG 40 MG Lisinopril Lisinopril No Lisinopril 20 MG 20 MG 20 MG Vitamin D Vitamin D No QD Vitamin D (Ergocalcif (Ergocalcif (Ergocalci mirian) 1.25 mirian) 1.25 ferol) MG (84485 MG (38321 1.25 MG UT) UT) (81940 UT) ProAir HFA ProAir HFA No 2{puffs ProAir HFA 108 (90 108 (90 _as_nee 108 (90 Base) Base) ded} Base) MCG/ACT MCG/ACT MCG/ACT NovoLIN NovoLIN No QD NovoLIN 70/30 70/30 70/30 (70-30) 100 (70-30) 100 (70-30) UNIT/ML UNIT/ML 100 UNIT/ML glipiZIDE glipiZIDE No 1{table BID glipiZIDE XL 5 MG XL 5 MG t_with_ XL 5 MG food} Atorvastati Atorvastati No QD Atorvastat n Calcium n Calcium in Calcium 40 MG 40 MG 40 MG NovoLIN NovoLIN No QD NovoLIN 70/30 70/30 70/30 (70-30) 100 (70-30) 100 (70-30) UNIT/ML UNIT/ML 100 UNIT/ML ProAir HFA ProAir HFA No 2{puffs ProAir HFA 108 (90 108 (90 _as_nee 108 (90 Base) Base) ded} Base) MCG/ACT MCG/ACT MCG/ACT Lisinopril Lisinopril No Lisinopril 20 MG 20 MG 20 MG Lisinopril Lisinopril No QD Lisinopril 20 MG 20 MG 20 MG glipiZIDE glipiZIDE No 1{table BID glipiZIDE XL 5 MG XL 5 MG t_with_ XL 5 MG food} Vitamin D Vitamin D No QD Vitamin D (Ergocalcif (Ergocalcif (Ergocalci mirian) 1.25 mirian) 1.25 ferol) MG (92129 MG (70371 1.25 MG UT) UT) (44182 UT) Breo Breo No 1{puff} QD Breo Ellipta Ellipta Ellipta 200-25 200-25 200-25 MCG/INH MCG/INH MCG/INH ProAir HFA ProAir HFA No 2{puffs ProAir HFA 108 (90 108 (90 _as_nee 108 (90 Base) Base) ded} Base) MCG/ACT MCG/ACT MCG/ACT glipiZIDE glipiZIDE No 1{table BID glipiZIDE XL 5 MG XL 5 MG t_with_ XL 5 MG food} Lisinopril Lisinopril No Lisinopril 20 MG 20 MG 20 MG NovoLIN NovoLIN No QD NovoLIN 70/30 70/30 70/30 (70-30) 100 (70-30) 100 (70-30) UNIT/ML UNIT/ML 100 UNIT/ML Vitamin D Vitamin D No QD Vitamin D (Ergocalcif (Ergocalcif (Ergocalci mirian) 1.25 mirian) 1.25 ferol) MG (22332 MG (72541 1.25 MG UT) UT) (76673 UT) Atorvastati Atorvastati No QD Atorvastat n Calcium n Calcium in Calcium 40 MG 40 MG 40 MG Lisinopril Lisinopril No QD Lisinopril 20 MG 20 MG 20 MG ProAir HFA ProAir HFA No 2{puffs ProAir HFA 108 (90 108 (90 _as_nee 108 (90 Base) Base) ded} Base) MCG/ACT MCG/ACT MCG/ACT glipiZIDE glipiZIDE No 1{table BID glipiZIDE XL 5 MG XL 5 MG t_with_ XL 5 MG food} Lisinopril Lisinopril No Lisinopril 20 MG 20 MG 20 MG NovoLIN NovoLIN No QD NovoLIN 70/30 70/30 70/30 (70-30) 100 (70-30) 100 (70-30) UNIT/ML UNIT/ML 100 UNIT/ML Vitamin D Vitamin D No QD Vitamin D (Ergocalcif (Ergocalcif (Ergocalci mirian) 1.25 mirian) 1.25 ferol) MG (21693 MG (88255 1.25 MG UT) UT) (26866 UT) Atorvastati Atorvastati No QD Atorvastat n Calcium n Calcium in Calcium 40 MG 40 MG 40 MG Lisinopril Lisinopril No QD Lisinopril 20 MG 20 MG 20 MG Lisinopril Lisinopril No Lisinopril 20 MG 20 MG 20 MG Fluticasone Fluticasone No 1{puff} BID Fluticason -Salmeterol -Salmeterol e-Salmeter 232-14 232-14 ol 232-14 MCG/ACT MCG/ACT MCG/ACT Vitamin D Vitamin D No QD Vitamin D (Ergocalcif (Ergocalcif (Ergocalci mirian) 1.25 mirian) 1.25 ferol) MG (60463 MG (72117 1.25 MG UT) UT) (01648 UT) Atorvastati Atorvastati No QD Atorvastat n Calcium n Calcium in Calcium 40 MG 40 MG 40 MG ProAir HFA ProAir HFA No 2{puffs ProAir HFA 108 (90 108 (90 _as_nee 108 (90 Base) Base) ded} Base) MCG/ACT MCG/ACT MCG/ACT NovoLIN NovoLIN No QD NovoLIN 70/30 70/30 70/30 (70-30) 100 (70-30) 100 (70-30) UNIT/ML UNIT/ML 100 UNIT/ML Lisinopril Lisinopril No QD Lisinopril 20 MG 20 MG 20 MG glipiZIDE glipiZIDE No 1{table BID glipiZIDE XL 5 MG XL 5 MG t_with_ XL 5 MG food} Immunizations Ordered Immunization Filled Immunization Date Status Commen ts Source Name Name COVID-19 Vaccine COVID-19 Vaccine 2020-05-04 Completed [facility] [facility] 10:[facility]00 [facility] COVID-19 Vaccine COVID-19 Vaccine 2020-05-04 Completed [facility] 10:44:00 [facility] COVID-19 Vaccine COVID-19 Vaccine 2020-05-04 Completed [facility] 10:44:00 [facility] COVID-19 Vaccine COVID-19 Vaccine 2020-05-04 Completed [facility] [facility] 10:44:00 - [facility] COVID-19 Vaccine COVID-19 Vaccine 2020-05-04 Completed [facility] 10:44:00 - [facility] COVID-19 Vaccine COVID-19 Vaccine 2020-05-04 Completed [facility] 10:44:00 [facility] COVID-19 Vaccine COVID-19 Vaccine 2020-05-04 Completed [facility] [facility] [employer] 10:44:00 [facility] COVID-19 Vaccine COVID-19 Vaccine 2020-05-04 Completed [facility] [facility] [employer] 10:44:00 [facility] COVID-19 Vaccine COVID-19 Vaccine 2020-05-04 Completed [facility] 10:44:00 [facility] COVID-19 Vaccine COVID-19 Vaccine 2020-05-04 Completed [facility] 10:44:00 [facility] COVID-19 Vaccine COVID-19 Vaccine 2020-05-04 Completed [facility] ([facility] 10:44:00 [facility] COVID-19 Vaccine COVID-19 Vaccine 2020-05-04 Completed [facility] 10:44:00 [facility] COVID-19 Vaccine COVID-19 Vaccine 2020-05-04 Completed [facility] ([facility] 10:44:00 [facility] COVID-19 Vaccine COVID-19 Vaccine 2020-05-04 Completed [facility] 10:44:00 [facility] COVID-19 Vaccine COVID-19 Vaccine 2020-05-04 Completed [facility] ([facility] 10:44:00 [facility] COVID-19 Vaccine COVID-19 Vaccine 2020-05-04 Completed [facility] 10:44:00 [facility] COVID-19 Vaccine COVID-19 Vaccine 2020-05-04 Completed [facility] ([facility] 10:44:00 [facility] Afluria single dose Afluria single dose 2019-11-18 [facility] 13[facility]06[facility]00 [facility] Afluria single dose Afluria single dose 2019-11-18 [facility] 13:06[facility]00 [facility] Afluria single dose Afluria single dose 2019-11-18 [facility] 13:06[facility]00 [facility] Afluria single dose Afluria single dose 2019-11-18 [facility] 13:06[facility]00 [facility] Afluria single dose Afluria single dose 2019-11-18 [facility] 13:06[facility]00 [facility] Afluria single dose Afluria single dose 2019-11-18 [facility]pleted [facility] 13[facility]06: [facility] Afluria single dose Afluria single dose 2019-11-18 [facility] 13:06[facility]00 [facility] Afluria single dose Afluria single dose 2019-11-18 [facility]:06[facility]00 [facility] Afluria single dose Afluria single dose 2019-11-18 [facility] 13:06:00 - [facility] Afluria single dose Afluria single dose 2019-11-18 [facility] 13:06:00 [facility] Afluria single dose Afluria single dose 2019-11-18 [facility]:06[facility]00 [facility] Afluria single dose Afluria single dose 2019-11-18 [facility] 13:06:00 - [facility] Afluria single dose Afluria single dose 2019-11-18 [facility]pleted [facility] 13:06:00 [facility] Afluria single dose Afluria single dose 2019-11-18 [facility] 13:06:00 - [facility] Afluria single dose Afluria single dose 2019-11-18 [facility]pleted [facility] 13:06:00 [facility] Afluria single dose Afluria single dose 2019-11-18 [facility]pleted [facility] 13:06:00 [facility] Afluria single dose Afluria single dose 2019-11-18 Completed [facility] 13:06:00 [facility] Vital Signs Vital Name Observation Time Observation Value Comments Source height 2021-04-18 14:20:00 70 [in_i] [facility] weight 2021-04-18 14:20:00 205.8 [lb_av] [facility] temperature 2021-04-18 14:20:00 98.0 [degF] [facility] bmi 2021-04-18 14:20:00 29.53 kg/m2 [facility] oximetry 2021-04-18 14:20:00 96 % [facility] respiratory rate 2021-04-18 14:20:00 18 /min Comm on [facility] blood pressure 2021-04-18 14:20:00 117 mm[Hg] [facility] - systolic [facility] blood pressure 2021-04-18 14:20:00 86 mm[Hg] [facility] diastolic [facility] height 2021-03-20 09:20:00 70 [in_i] [facility] weight 2021-03-20 09:20:00 200.1 [lb_av] [facility] - [facility] temperature 2021-03-20 09:20:00 98.2 [facility]degF[facility] bmi 2021-03-20 09:20:00 28.71 kg/m2 [facility] oximetry 2021-03-20 09:20:00 99 % [facility] respiratory rate 2021-03-20 09:20:00 18 /min [facility] blood pressure 2021-03-20 09:20:00 133 mm[Hg] [facility] - systolic [facility] blood pressure 2021-03-20 09:20:00 86 mm[Hg] [facility] - diastolic [facility] height 2020-11-24 14:30:00 70 [in_i] [facility] weight 2020-11-24 14:30:00 209.6 [lb_av] [facility] bmi 2020-11-24 14:30:00 30.07 kg/m2 [facility] blood pressure 2020-11-24 14:30:00 132 mm[Hg] [facility] - systolic [facility] blood pressure 2020-11-24 14:30:00 81 mm[Hg] [facility] - diastolic [facility] height 2020-11-14 13:00:00 70 [in_i] [facility] weight 2020-11-14 13:00:00 212.7 [lb_av] [facility] - [facility] temperature 2020-11-14 13:00:00 97.4 [degF] [facility] bmi 2020-11-14 13:00:00 30.52 kg/m2 [facility] oximetry 2020-11-14 13:00:00 98 % [facility] respiratory rate 2020-11-14 13:00:00 19 /min Comm on [facility] blood pressure 2020-11-14 13:00:00 139 mm[Hg] Common [facility] - systolic [facility] blood pressure 2020-11-14 13:00:00 83 mm[Hg] [facility] - diastolic [facility] height 2020-10-12 14:10:00 70 [in_i] Common [facility] weight 2020-10-12 14:10:00 206.4 [lb_av] Common [facility] temperature 2020-10-12 14:10:00 97.2 [degF] Common [facility] bmi 2020-10-12 14:10:00 29.61 kg/m2 [facility] oximetry 2020-10-12 14:10:00 96 % [facility] respiratory rate 2020-10-12 14:10:00 18 /min Comm on [facility] blood pressure 2020-10-12 14:10:00 135 mm[Hg] Common [facility] - systolic [facility] blood pressure 2020-10-12 14:10:00 71 mm[Hg] [facility] - diastolic [facility] height 2020-09-14 13:20:00 70 [in_i] [facility] weight 2020-09-14 13:20:00 200.9 [lb_av] Common [facility] temperature 2020-09-14 13:20:00 98.2 [degF] Common [facility] bmi 2020-09-14 13:20:00 28.82 kg/m2 [facility] oximetry 2020-09-14 13:20:00 99 % Common [facility] respiratory rate 2020-09-14 13:20:00 16 /min Comm on [facility] blood pressure 2020-09-14 13:20:00 125 mm[Hg] Common [facility] - systolic [facility] blood pressure 2020-09-14 13:20:00 75 mm[Hg] [facility] - diastolic [facility] height 2020-08-15 14:50:00 70 [in_i] [facility] 2020-08-15 14:50:00 197.8 [lb_av] [facility] - [facility] temperature 2020-08-15 14:50:00 97.4 [degF] [facility] bmi 2020-08-15 14:50:00 28.38 kg/m2 Common [facility] oximetry 2020-08-15 14:50:00 98 % [facility] respiratory rate 2020-08-15 14:50:00 17 /min Comm on [facility] - [facility] blood pressure 2020-08-15 14:50:00 123 mm[Hg] [facility] - systolic [facility] blood pressure 2020-08-15 14:50:00 78 mm[Hg] [facility] - diastolic [facility] Systolic (mm Hg) 2020-06-01 19:57:00 [facility] [place] Diastolic (mm Hg) 2020-06-01 19:57:00 [facility] Rate 2020-06-01 19:57:00 [facility] Respitory Rate 2020-06-01 19:57:00 [facility] Temperature Oral (F) 2016-02-10 18:00:00 98.3 F [facility] Respitory Rate 2016-02-10 18:00:00 [facility] Systolic (mm Hg) 2016-02-10 18:00:00 [facility] Diastolic (mm Hg) 2016-02-10 18:00:00 Mem orial [place] Heart Rate 2016-02-10 18:00:00 [facility] Systolic (mm Hg) 2016-02-10 13:00:00 Shin rial [place] Diastolic (mm Hg) 2016-02-10 13:00:00 Mem orial [place] Respitory Rate 2016-02-10 13:00:00 Mem[facility] [place] Heart Rate 2016-02-10 13:00:00 [facility] Temperature Oral (F) 2016-02-10 13:00:00 98.7 F [facility] [place] Respitory Rate 2016-02-10 06:22:00 [facility] Systolic (mm Hg) 2016-02-10 06:22:00 [facility] Diastolic (mm Hg) 2016-02-10 06:22:00 Mem orial [place] Heart Rate 2016-02-10 06:22:00 [facility] Temperature Oral (F) 2016-02-10 06:22:00 98.2 F [facility] [place] BMI Calculated 2016-02-06 21:11:00 [facility] [place] Height 2016-02-06 21:11:00 152.4 cm [facility] [place] Weight 2016-02-06 21:11:00 [facility] [place] Weight 2016-02-06 10:47:00 [facility] BMI Calculated 2016-02-06 10:47:00 [facility] [place] Height 2016-02-06 10:47:00 152.4 cm [facility] Respitory Rate 2015-08-10 22:56:00 [facility] [place] Systolic (mm Hg) 2015-08-10 22:56:00 Shin rial [place] Diastolic (mm Hg) 2015-08-10 22:56:00 Mem orial [place] Heart Rate 2015-08-10 22:56:00 [facility] Temperature Oral (F) 2015-08-10 22:56:00 96.9 F [facility] Temperature Oral (F) 2015-08-10 21:33:00 97.3 F [facility] Respitory Rate 2015-08-10 21:33:00 [facility] Heart Rate 2015-08-10 21:33:00 [facility] Systolic (mm Hg) 2015-08-10 21:33:00 Shin rial [place] Diastolic (mm Hg) 2015-08-10 21:33:00 Mem orial [place] Systolic (mm Hg) 2015-08-10 20:22:00 Shin rial [place] Diastolic (mm Hg) 2015-08-10 20:22:00 Mem o[facility] [place] Temperature Oral (F) 2015-08-10 20:22:00 97.5 F [facility] Heart Rate 2015-08-10 20:22:00 [facility] Respitory Rate 2015-08-10 20:22:00 Mem[facility] al [place] Height 2015-08-10 20:22:00 152.4 cm [facility] [place] Weight 2015-08-10 20:22:00 [facility] BMI Calculated 2015-08-10 20:22:00 [facility] [place] Weight 2014-09-01 04:43:00 [facility] BMI Calculated 2014-09-01 04:43:00 [facility] [place] Temperature Oral (F) 2014-09-01 04:43:00 98.5 F [facility] Heart Rate 2014-09-01 04:43:00 [facility] [place] Respitory Rate 2014-09-01 04:43:00 [facility] Height 2014-09-01 04:43:00 154.94 cm [facility] [place] Systolic (mm Hg) 2014-09-01 04:43:00 [facility] [place] Diastolic (mm Hg) 2014-09-01 04:43:00 [facility] Height 2013-04-01 21:10:00 152.4 cm [facility] Weight 2013-04-01 21:10:00 [facility] [place] Temperature Oral (F) 2013-04-01 21:10:00 97.0 F [facility] [place] Heart Rate 2013-04-01 21:10:00 [facility] [place] Respitory Rate 2013-04-01 21:10:00 [facility] [place] Systolic (mm Hg) 2013-04-01 21:10:00 [facility] [place] Diastolic (mm Hg) 2013-04-01 21:10:00 [facility] Procedures This patient has no known procedures. Plan of Care Planned Activity Planned Date Details Comments Source Future Scheduled Test 2021-11-18 00:00:[address] [facility] Seasonal (>/= 19 yrs) [code = IMM Influenza Seasonal (>/= 19 yrs)] Future Scheduled Test 1970 00:00:00 COVID-19 Vaccine (#1) [facility] [code = COVID-19 Vaccine (#1)] Encounters Start End Encounter Admission Attending Care Care Encounter Source Date/Time Date/Time Type Type Clinicians Facility Department ID 2022-01-01 Outpatient Harris, [facility] [id number] Common 16:25:01 Ramon 02168 [facility] 2021-06-12 Outpatient Harris, [facility] [id number] Common 08:39:02 Ramon [facility] 2021-04-04 Outpatient Harris, [facility] [id number] Common 09:42:01 Ramon [facility] 2021-03-20 Outpatient Harris, [facility] [id number] Common 07:56:00 Ramon [facility] 2021-03-16 Outpatient Harris, STLML[facility] [id number] Common 11:00:02 Ramon [facility] 2021-03-15 Outpatient Harris, [facility]LML[facility] ST[facility] [id number] Common 14:13:57 Ramon [facility] 2021-03-15 Outpatient Harris, [facility] ST[facility] [id number] Common 14:12:32 Ramon [facility] 2021-03-15 Outpatient Harris, [facility] ST[facility] [id number] Common 13:53:19 Ramon 06070 [facility] 2021-03-15 Outpatient Harris, [facility]LML[facility] ST[facility] [id number] Common 13:19:14 Ramon 78939 [facility] 2021-03-15 Outpatient Harris, [facility] ST[facility] [id number] Common 13:01:24 Ramon 25258 [facility] 2021-03-15 Outpatient Harris, [facility] [id number] Common 12:54:29 Ramon 83053 [facility] 2021-03-15 Outpatient Harris, [facility] [id number] Common 12:43:28 Ramon 49652 [facility] 2021-03-15 Outpatient Harris, [facility] [id number] Common 12:42:21 Ramon 81384 [facility] 2021-03-15 Outpatient Harris, [facility] [id number] Common 12:41:34 Ramon 22211 [facility] 2021-03-15 Outpatient Harris, [facility] [id number] Common 12:41:12 Ramon 59559 [facility] 2021-03-15 Outpatient Harris, [facility] [id number] Common 12:31:21 Ramon 85167 [facility] 2021-03-15 Outpatient Harris, [facility] [id number] Common 12:14:34 Ramon 92761 [facility] 2021-03-15 Outpatient Harris, [facility] ST[facility] [id number] Common 12:04:53 Ramon 01132 [facility] 2021-03-15 Outpatient Harris, [facility]LML[facility] [id number] Common 12:04:45 Ramon 32527 [facility] 2021-03-15 Outpatient Harris, [facility] [id number] Common 11:32:39 Ramon 53735 [facility] 2021-03-15 Outpatient Harris, STLMLC ST[facility] [id number] Common 11:22:17 Ramon 61813 [facility] 2021-08-07 2021-08-07 (TEL) STLMLC STLMLC [id number] Co mmon 00:00:00 00:00:00 [facility] 2021-04-19 2021-04-19 (TEL) STLMLC STLMLC [id number] Co mmon 00:00:00 00:00:00 [facility] 2021-04-18 2021-04-18 OFFICE STLMLC STLMLC [id number] Co mmon 00:00:00 00:00:00 VISIT EST Spir it PT LEVEL 3 [facility] 2021-03-20 2021-03-20 OFFICE STLMLC STLMLC [id number] Co mmon 00:00:00 00:00:00 VISIT EST Spir it PT LEVEL 3 [facility] 2021-03-16 2021-03-16 (TEL) STLMLC STLMLC [id number] Co mmon 00:00:00 00:00:00 [facility] 2021-03-16 2021-03-16 (TEL) STLMLC STLMLC [id number] Co mmon 00:00:00 00:00:00 [facility] 2021-02-21 2021-02-21 (TEL) STLMLC STLMLC [id number] Co mmon 00:00:00 00:00:00 [facility] 2021-01-03 2021-01-03 (TEL) STLMLC STLMLC [id number] Co mmon 00:00:00 00:00:00 [facility] 2020-11-29 2020-11-29 (TEL) STLMLC STLMLC [id number] Co mmon 00:00:00 00:00:00 [facility] 2020-11-25 2020-11-25 (TEL) STLMLC STLMLC [id number] Co mmon 00:00:00 00:00:00 [facility] 2020-11-24 2020-11-24 OFFICE STLMLC STLMLC [id number] Co mmon 00:00:00 00:00:00 VISIT [facility] PT - CHI LEVEL 4 [facility] 2020-11-22 2020-11-22 Outpatient PRIV PRIV [id number] [facility] 00:00:00 00:00:00 [id number] [facility] 2020-11-16 2020-11-16 (TEL) STLMLC STLMLC [id number] Co mmon 00:00:00 00:00:00 [facility] 2020-11-14 2020-11-14 OFFICE STLMLC STLMLC [id number] Co mmon 00:00:00 00:00:00 VISIT [facility] PT - CHI LEVEL 4 [facility] 2020-11-14 2020-11-14 (TEL) STLMLC STLMLC [id number] Co mmon 00:00:00 00:00:00 [facility] 2020-10-12 2020-10-12 OFFICE STLMLC STLMLC [id number] Co mmon 00:00:00 00:00:00 VISIT [facility] PT - CHI LEVEL 4 [facility] 2020-09-14 2020-09-14 OFFICE STLMLC STLMLC [id number] Co mmon 00:00:00 00:00:00 VISIT [facility] ESTAB PT - CHI LEVEL 4 [facility] 2020-08-15 2020-08-15 OFFICE STLMLC STLMLC [id number] Co mmon 00:00:00 00:00:00 VISIT [facility] PT - CHI LEVEL 4 [facility] 2020-08-02 2020-08-02 Outpatient STLMLC STLMLC [id number] Common 00:00:00 00:00:00 [facility] 2020-08-01 2020-08-01 Outpatient STLMLC STLMLC [id number] Common 00:00:00 00:00:00 [facility] 2020-06-27 2020-06-27 Outpatient STLMLC STLMLC [id number] Common 00:00:00 00:00:00 [facility] 2020-06-08 2020-06-08 Outpatient STLMLC STLMLC [id number] Common 00:00:00 00:00:00 [facility] 2020-06-01 2020-06-02 Outpatient nullFlavo MNA [id number] Memoria 20:15:00 04:59:59 r Neurology 00 l Samantha Jensen 2020-06-02 2020-06-02 Outpatient STLMLC STLMLC [id number] Common 00:00:00 00:00:00 [facility] 2020-06-01 2020-06-01 Outpatient MIGUEL Gudino [facility] [id number] 15:15:00 23:59:59 Hugh 00 Anish 2020-06-01 2020-06-01 Outpatient MHIE MHIE [id number] Memoria 15:15:00 15:15:00 00 l Mikey 2020-05-09 2020-05-09 Outpatient STLMLC STLMLC [id number] Common 00:00:00 00:00:00 [facility] 2020-05-04 2020-05-04 Outpatient STLMLC STLMLC [id number] Common 00:00:00 00:00:00 [facility] 2020-05-04 2020-05-04 Outpatient STLMLC STLMLC [id number] Common 00:00:00 00:00:00 [facility] 2020-04-08 2020-04-08 Outpatient STLMLC STLMLC [id number] Common 00:00:00 00:00:00 [facility] 2020-02-08 2020-02-08 Outpatient STLMLC STLMLC [id number] Common 00:00:00 00:00:00 [facility] 2019-12-31 2019-12-31 Outpatient STLMLC STLMLC [id number] Common 00:00:00 00:00:00 [facility] 2019-11-11 2019-11-11 Outpatient STLMLC STLMLC [id number] Common 00:00:00 00:00:00 [facility] 2019-11-11 2019-11-11 Outpatient STLMLC STLMLC [id number] Common 00:00:00 00:00:00 [facility] 2019-10-28 2019-10-28 [facility] [id number] Common 13:20:00 13:20:00 t [employer] [facility] it Drive [facility] 2019-08-07 2019-08-07 [facility] [id number] Common 10:43:00 10:43:00 t [facility] it Road [facility] 2019-07-06 2019-07-06 [facility] [id number] Common 14:00:00 14:00:00 [employer] [facility] it Drive [facility] 2016-02-06 2016-02-10 Inpatient [facility]Fl[facility] [id number] Memoria 10:32:00 21:10:00 anais Jensen 10 l [facility] 2016-02-06 2016-02-10 Outpatient Jaden [facility] [id number] 04:32:00 15:10:00 Chelitakristie Murray Rah 2015-08-10 2015-08-10 [facility]Fl[facility] [id number] Memoria 20:16:00 23:08:00 Emergency r Mikey 09 l [facility] 2015-08-10 2015-08-10 Outpatient Liz, [facility] [id number] 15:16:00 18:08:00 Luke [facility] 2014-09-01 2014-09-01 EC nullFlavo [place] [id number] Memoria 04:03:00 05:10:00 Emergency r Convenient 08 l [facility] 2014-08-31 2014-09-01 Outpatient Robert Chao [facility] [id number] 23:03:00 00:10:00 Camron 08 2013-09-21 2013-09-21 EC nullFlavo [facility] [id number] Memoria 04:13:00 05:19:00 Emergency r [place] 07 [facility] 2013-09-20 2013-09-21 Outpatient Elver, 2.16.840. [id number]. 3 [id number] 23:13:00 00:19:00 Lazaro [id number]. [id number] Cody [id number] 67 0716-02-12 2013-04-01 Emergency nullFlavo Not Sent [id number] Memoria 15:05:00 16:57:00 r 06 l [place] 2013-04-01 2013-04-01 Outpatient 2.16.840. [id number]. 3 [id number] Memoria 15:05:00 16:57:00 [id number]. [id number] l 3.615.0.1 5.0.100 [facility] 00 [facility] Results Test Description Test Time Test Comments Results Result Comments Source HEMOGLOBIN A1C 2020-11-14 00:00:00 Test Item Value Reference Range Interpretation Comme nts A1C (test code = 4548-4) 8.5 HEMOGLOBIN [id number] 00:00:00 Test Item Value Reference Range Interpretation Comments A1C (test code = 4548-4) 9.5 HEMOGLOBIN [id number] 00:00:00 Test Item Value Reference Range Interpretation Comments A1C (test code = 4548-4) 11.0 UA RFLX MICR CULT IF [id number] 16:41:00 Test Item Value Reference Range Interpretation Comments UA COLOR (test code = Straw Yellow COLU) UA APPEARANCE (test Clear Clear code = APPU) UA GLUCOSE DIPSTICK >=500 (3+) Negative A (test code = DGLUU) UA BILIRUBIN DIPSTICK Negative Negative (test code = BILU) UA KETONE DIPSTICK Negative mg/dL Negative (test code = KETU) UA SPECIFIC GRAVITY 1.015 <1.030 (test code = SGU) UA BLOOD DIPSTICK 1+ Negative A (test code = CARO) UA PH DIPSTICK (test 6.0 5.0-8.0 code = MABEL) UA PROTEIN DIPSTICK 30 (1+) mg/dL Negative A (test code = PROU) UA UROBILINOGEN Negative mg/dL Negative DIPSTICK (test code = URO) UA NITRITE DIPSTICK Negative Negative (test code = MARCELA) UA LEUKOCYTE ESTERASE NEGATIVE Negative DIPSTICK (test code = LEUU) UA WBC (test code = 0-3 /HPF <4-5 <10 WBC/ HPF = WBCUR) PYURIA ABSENT URINE CULTURE N OT INDICATED UA RBC (test code = 0-3 /HPF <4-5 RBCU) UA BACTERIA (test NONE SEEN /HPF None-Rare code = BACU) UA SQUAMOUS CELLS 0-5 (RARE) /HPF 0-5 (RARE) (test code = SQU) less than 18 yrs old, neutropenic, [...] NG/ML are obtained. - CT HEAD/BRAIN W/O [id number] 15:20:00 FAX: Colleen Mckenzie MD [phone] [place]: St: REG Name: [facility] Ahsan : 1970 Age/S: 48/M [address] Unit: [id number] Loc: [place] [address] Phys: Colleen Mckenzie MD Acct: [id number] Dis Date: Status: REG ER PHONE #: [phone] Exam Date: 06/05/2018 1510 FAX #: [phone] Reason: june, h/o brain ca EXAMS: CPT CODE: [id number] CT HEAD/BRAIN W/O CONT 24920 Location: T18 CT head, 06/05/18 COMPARISON EXAMS:None of the brain TECHNIQUE: CT examination of the brain was performed without contrast on a helical scanner. Scanning conducted from skull base to vertex in the axial plane acquiring contiguous 5mm slice thickness . The examination was performed on a uptake at helical CT scanner utilizing low-dose radiation technique. Automatic exposure control timing was utilized to minimize radiation dose. CLINICAL HISTORY: Headache. History BRAIN cancer. Emergency room presentation FINDINGS: There is postoperative changes identified in the left occipital region. Area of focal encephalomalacia isseen in this area without space-occupying process or [...] seen. IMPRESSION: Postop changes in the left occipital region with encephalomalacia seen deep to the postoperative site. No definite findings for recurrent lesion. No space-occupying processes or intracranial hemorrhage. PAGE 1 Signed Report (CONTINUED) FAX: Colleen Mckenzie MD [phone] [place]: St: REG Name: [facility] Ahsan : 1970 Age/S: 48/M [address] Unit: [id number] Loc: [place] [address] Phys: Colleen Mckenzie MD Acct: [id number] Dis Date: Status: REG ER PHONE #: [phone] Exam Date: 06/05/2018 1510 FAX #: [phone] Reason: june, h/o brain ca EXAMS: CPT CODE: [id number] CT HEAD/BRAIN W/O CONT 42808 (Continued) at 1520 Reported and signed by: Janeen Chacon MD CC: Colleen Mckenzie MD Technologist: HAYDEE KATZrd Dt/Tm: 06/05/2018 (1520) [email or web address] Orig Print D/T: S: 06/05/2018 (1523 PAGE 2 Signed ReportBASIC METABOLIC [id number] 15:18:00 Test Item Value Reference Range Interpretation [...] 9.3 mg/dL 8.4-10.2 N CA) LIVER FUNCTION [id number] 15:18:00 Test Item Value Reference Range Interpretation [...] U/L 38-126 H (test code = ALKP) [id number] 15:18:00 Test Item Value Reference Range Interpretation Comments LIPASE (test code = LIP) 133 U/L 23-300 N BASIC METABOLIC [id number] 15:16:00 Test Item Value Reference Range Interpretation [...] 9.3 mg/dL 8.4-10.2 N CA) LIVER FUNCTION [id number] 15:16:00 Test Item Value Reference Range Interpretation [...] U/L 38-126 H (test code = ALKP) [id number] 15:16:00 Test Item Value Reference Range Interpretation Comments LIPASE (test code = LIP) U/L 23-300 PROTHROMBIN [id number] 15:07:00 Test Item Value Reference Range Interpretation Comments PROTHROMBIN TIME 11.2 SECONDS 9.2-12.1 N PATIENT (test code = PTP) INTERNATIONAL NORMAL 1.0 The INR is to be used RATIO (test code = only for monitoring INR) ORAL ANTICOAGULANTTH ERAPY. Indication INR Value1. Prophylaxis/juan alberto atment of: Venous Thro mbosis, Pulmonary Embol ism 2.0 - 3.02. Prevent ion of systemic emboli sm from: Tissue he art valves 2.0 - 3. 0 Acute myocardial infa rction (to present sys temic embolism)* 2.0 - 3.0 Valvular heart disease 2.0 - 3.0 Atria l fibrillation 2. 0 - 3.03. Mechanica l prosthetic valv es (high risk) 2.5 - 3.5 * If oral anticoagulant t herapy is elected to preventrecurren t myocardial infa rction, an INR of 2.5-3 .5 isrecommended, consistent with Food and Drug Administrationr ecommen dations. THROMBOPLASTIN TIME [id number] 15:07:00 Test Item Value Reference Range Interpretation Comments THROMBOPLASTIN TIME 25.6 SECONDS 23.4-37.0 N Therape utic Range PARTIAL (test code = for Hep hamilton PTT) EFFECTIVE Heparin IU/mL aPTT Seconds0.3 64.3 0.7 88.8 CBC W/AUTO [id number] 15:02:00 Test Item Value Reference Range Interpretation [...] 0.03 x10 3/uL 0.0-0.1 N LACTIC ACID [id number] 15:01:00 Test Item Value Reference Range Interpretation Comments LACTIC ACID POC (test code = 1.17 mmol/L 0.7-2.0 N LACTP) TROPONIN I [id number] 15:01:00 Test Item Value Reference Range Interpretation Comments TROPONIN I RAPID 0.01 ng/mL 0.00-0.079 N ISTAT TROP ONIN I (test code = CRITERIA0.00-0. 08 ng/mL - TROPIRAP) Negative>0.08 n g/mL - Positive The us [...] methodology is used. - XR CHEST 1 [id number] 14:53:00 [place]: St: REG -- Name: [facility] [place] : 1970 Age/S: 48/M [address] Unit #: [id number] Loc: [place] [address] Phys: Isaias Gruber Acct: [id number] Dis Date: Status: REG ER PHONE #: [phone] Exam Date: 06/05/2018 1440 FAX #: [phone] Reason: CODE SEPSIS EXAMS: CPT CODE: [id number] XR CHEST 1 V 72917 EXAM: Portable chest x-ray, one view INDICATION: CODE SEPSIS LOCATION CODE: C3 COMPARISON: None TECHNIQUE: Single Portable AP upright view of the chest DISCUSSION: Mild patchy density involving the right lung base suggest atelectasis and or infiltrative process. Heart and mediastinal contours are unremarkable. No pneumothorax or pleural vision seen. Osseous structures unremarkable. IMPRESSION: 1. Right basilar atelectasis and or early infiltrate at 4574 Reported and signed by: Rodolfo Kim M.D. CC: Technologist: KYARA KHANNA (Anais) Trnrody Date/Time/By: 06/05/2018 (1292) : By: NavinHPD PAGE 1 Signed Report [place]: St: REG -- Name: [facility] [place] : 1970 Age/S: 48/M [address] Unit #: [id number] Loc: [place] [address] Phys: Isaias Gruber Acct: [id number] Dis Date: Status: REG ER PHONE #: [phone] Exam Date: 06/05/2018 1440 FAX #: [phone] Reason: CODE SEPSIS EXAMS: CPT CODE: [id number] XR CHEST 1 V 39882 (Continued) Orig Print D/T: S: 06/05/2018 (6948) PAGE 2 Signed ReportCHEM [id number] 11:06:00 Test Item Value Reference Range Interpretation Comments Phosphorus (test code = Phosphorus) 3.3 2.5-4.5 [facility] [id number] 11:06:00 Test Item Value Reference Range Interpretation Comments Magnesium Lvl (test code = Magnesium 1.8 1.8-2.4 Lvl) [facility]TlfrvxgEVNRPMFOBHTK4882-01-86 11:06:00 Test Item Value Reference Range Interpretation Comments CO2 (test code = CO2) 27 24-32 [facility] HospitalGsmzpxwEDHWMJISUPLA1985-96-70 11:06:00 Test Item Value Reference Range Interpretation Comments Calcium Lvl (test code = Calcium Lvl) 8.7 8.5-10.5 [facility] HospitalKycfsvjUTURXTNABZRJ9911-12-27 11:06:00 Test Item Value Reference Range Interpretation Comments AGAP (test code = AGAP) 10.8 10.0-20.0 [facility] HospitalWtfxymjBGAPBKYWKTJD9112-05-13 11:06:00 Test Item Value Reference Range Interpretation Comments Chloride Lvl (test code = Chloride Lvl) 104 95-109 [facility] HospitalJmrusmoXOIBAKQSMWCO6465-40-79 11:06:00 Test Item Value Reference Range Interpretation Comments eGFR (test code = eGFR) 56 [facility] HospitalFfmojelISWLZTQQVFVD2369-61-25 11:06:00 Test Item Value Reference Range Interpretation Comments Potassium Lvl (test code = Potassium 3.8 3.5-5.1 Lvl) [facility] HospitalMbdmyinQFALZTAAGDTP8159-30-41 11:06:00 Test Item Value Reference Range Interpretation Comments Sodium Lvl (test code = Sodium Lvl) 138 135-145 [facility] HospitalRlpbpuyNYOANWFTRSVG8975-13-39 11:06:00 Test Item Value Reference Range Interpretation Comments Creatinine Lvl (test code = Creatinine 1.51 0.50-1.40 Lvl) [facility] HospitalUczgtvtHLESVDWQBYOE1345-23-91 11:06:00 Test Item Value Reference Range Interpretation Comments BUN (test code = BUN) 22 7-22 [facility] HospitalLrurmckVDOEMXJIUNTC0018-80-31 11:06:00 Test Item Value Reference Range Interpretation Comments Glucose Lvl (test code = Glucose Lvl) 130 70-99 [facility]FmkuhriXQFECHFXHK9570-65-44 11:06:00 Test Item Value Reference Range Interpretation Comments WBC (test code = WBC) 8.9 3.7-10.4 [facility]vineEnxrwdlGBTCEBTPSL1412-31-86 11:06:00 Test Item Value Reference Range Interpretation Comments RBC (test code = RBC) 4.85 4.70-6.10 [facility]vineIyfaqbiENLBGVNVQX0047-27-82 11:06:00 Test Item Value Reference Range Interpretation Comments MCV (test code = MCV) 87.1 80.0-94.0 [facility]rapevineAowtohlYHIYBSILBQ4287-31-74 11:06:00 Test Item Value Reference Range Interpretation Comments MCHC (test code = MCHC) 32.7 32.0-36.0 [facility]rapevineJidbfkxZBOZWKUSYT3046-84-47 11:06:00 Test Item Value Reference Range Interpretation Comments Platelet (test code = Platelet) 251 133-450 [facility]rapevineUubqsiyAYVCXVZPGJ2714-88-74 11:06:00 Test Item Value Reference Range Interpretation Comments RDW (test code = RDW) 13.1 11.5-14.5 [facility]vineTeptlraFWYXKOPUZL9535-82-18 11:06:00 Test Item Value Reference Range Interpretation Comments Hct (test code = Hct) 42.2 42.0-54.0 [facility]rapevineOkfqombOYLEPVMCDQ8162-38-84 11:06:00 Test Item Value Reference Range Interpretation Comments Hgb (test code = Hgb) 13.8 14.0-18.0 [facility] GrapevineGtoolxsVCRBMCCJDQ5622-88-88 11:06:00 Test Item Value Reference Range Interpretation Comments MPV (test code = MPV) 7.1 7.4-10.4 [facility] GrapevineLemjficRVPFNGYLWB6504-46-73 11:06:00 Test Item Value Reference Range Interpretation Comments MCH (test code = MCH) 28.5 pg 27.0-31.0 [facility] GrapevineXjqwjwoMWDWEPTSUH4180-51-14 11:06:00 Test Item Value Reference Range Interpretation Comments Monocytes (test code = Monocytes) 5.9 2.0-12.0 [facility]rapevineEvxxqmpVPMQVAIAFC7587-52-00 11:06:00 Test Item Value Reference Range Interpretation Comments Lymphocytes (test code = Lymphocytes) 41.2 20.0-40.0 [facility] GrapevineYodtiwtCYAIRBAJPM2252-82-15 11:06:00 Test Item Value Reference Range Interpretation Comments Basophils (test code = 0.5 See_Comment [Aut omated message] The Basophils) system which ge nerated this result tra nsmitted reference range : <=1.0. The reference r davey was not used to int erpret this result as normal/abnormal . [facility]rapevineLihzjxkLXSJWWTLXH8267-92-52 11:06:00 Test Item Value Reference Range Interpretation Comments Eosinophils (test code = 2.1 See_Comment [A utomated message] The Eosinophils) system which ge nerated this result tra nsmitted reference range : <=4.0. The reference r davey was not used to int erpret this result as normal/abnormal . [facility] GrapevineTflfldaAGHJICIFHM4804-11-81 11:06:00 Test Item Value Reference Range Interpretation Comments Segs-Bands # (test code = Segs-Bands #) 4.5 1.5-8.1 [facility] GrapevineBqbdwdbXEOTGFWFZG8920-00-86 11:06:00 Test Item Value Reference Range Interpretation Comments Lymphocytes # (test code = Lymphocytes 3.7 1.0-5.5 #) [facility] GrapevineSorafjmZZFHYWPAQI5292-89-74 11:06:00 Test Item Value Reference Range Interpretation Comments Eosinophils # (test code 0.2 See_Comment [A utomated message] The = Eosinophils #) system whic h generated this result tra nsmitted reference range : <=0.5. The reference r davey was not used to int erpret this result as normal/abnormal . [facility]rapevineQgphhakZVCJAJLKYJ9215-72-06 11:06:00 Test Item Value Reference Range Interpretation Comments Monocytes # (test code 0.5 See_Comment [Aut omated message] The = Monocytes #) system which generated this result tra nsmitted reference range : <=0.8. The reference r davey was not used to int erpret this result as normal/abnormal . [facility]rapevineRnzdbmnHPYFWQDVQF5445-44-67 11:06:00 Test Item Value Reference Range Interpretation Comments Segs (test code = Segs) 50.3 45.0-75.0 [facility]2016-12-22 16:49:00 Test Item Value Reference Range Interpretation Comments Lactic Acid Lvl (test code = Lactic 1.4 0.5-2.2 Acid Lvl) [facility] HospitalOpatrioEFGTLRWNPLHM0269-18-13 16:49:00 Test Item Value Reference Range Interpretation Comments AGAP (test code = AGAP) 11.0 10.0-20.0 [facility] HospitalGooigucTQJEPGUQCMDW5267-58-77 16:49:00 Test Item Value Reference Range Interpretation Comments eGFR (test code = eGFR) 54 [facility] HospitalFihfhnoFJBSHQFIRUNE7562-48-70 16:49:00 Test Item Value Reference Range Interpretation Comments Sodium Lvl (test code = Sodium Lvl) 139 135-145 [facility] HospitalGabqewgOVOTMWGWSLPL6013-90-24 16:49:00 Test Item Value Reference Range Interpretation Comments Potassium Lvl (test code = Potassium 4.0 3.5-5.1 Lvl) [facility] HospitalPjozlexLUOOUFWWKUZW3131-56-85 16:49:00 Test Item Value Reference Range Interpretation Comments CO2 (test code = CO2) 29 24-32 [facility] HospitalQsaprhxHUZZEPBTPRNG8830-24-58 16:49:00 Test Item Value Reference Range Interpretation Comments Chloride Lvl (test code = Chloride Lvl) 103 95-109 [facility] HospitalGpgzjyoSQNBIHHJBWVO7120-97-01 16:49:00 Test Item Value Reference Range Interpretation Comments Calcium Lvl (test code = Calcium Lvl) 8.9 8.5-10.5 [facility] HospitalHrpkyxvXXYKNMBWIGTB2228-01-80 16:49:00 Test Item Value Reference Range Interpretation Comments Creatinine Lvl (test code = Creatinine 1.54 0.50-1.40 Lvl) [facility] HospitalQxxlevmBNITEHVIRRFB1615-26-98 16:49:00 Test Item Value Reference Range Interpretation Comments BUN (test code = BUN) 24 7-22 [facility] HospitalSeewpmsRUNMAPYHBJPK4910-08-10 16:49:00 Test Item Value Reference Range Interpretation Comments Glucose Lvl (test code = Glucose Lvl) 229 70-99 [facility]vineHekwnagVDBKPWENPR4718-65-97 16:49:00 Test Item Value Reference Range Interpretation Comments MCV (test code = MCV) 85.8 80.0-94.0 [facility]rapevineJndwofeAZEHFFLLMA0269-68-78 16:49:00 Test Item Value Reference Range Interpretation Comments Hgb (test code = Hgb) 12.8 14.0-18.0 [place] 653766-12-22 16:49:00 Test Item Value Reference Range Interpretation Comments Hct (test code = Hct) 38.8 42.0-54.0 [facility]rapevineCwqgvkrFNZGTLDNAX2247-55-25 16:49:00 Test Item Value Reference Range Interpretation Comments RBC (test code = RBC) 4.52 4.70-6.10 [facility] GrapevineOfxjevySSMRXHCWVK7419-65-02 16:49:00 Test Item Value Reference Range Interpretation Comments WBC (test code = WBC) 10.8 3.7-10.4 [place] [id number] 16:49:00 Test Item Value Reference Range Interpretation Comments Platelet (test code = Platelet) 350 133-450 [facility]vineLjxdmyzPVPAIHIZEK8172-90-39 16:49:00 Test Item Value Reference Range Interpretation Comments MPV (test code = MPV) 6.5 7.4-10.4 [facility]vineCbmqqxtGSKWCMSAZX3663-35-74 16:49:00 Test Item Value Reference Range Interpretation Comments RDW (test code = RDW) 13.3 11.5-14.5 [facility]rapevineUwzplsiATRTSUUQQZ3520-66-50 16:49:00 Test Item Value Reference Range Interpretation Comments MCH (test code = MCH) 28.2 pg 27.0-31.0 [facility]vineFqdqipoUYHUQIZKBJ7522-93-81 16:49:00 Test Item Value Reference Range Interpretation Comments MCHC (test code = MCHC) 32.9 32.0-36.0 [facility]rapevineTbwxeljGILDGAKHYO1008-38-44 16:49:00 Test Item Value Reference Range Interpretation Comments Basophils # (test code 0.1 See_Comment [Aut omated message] The = Basophils #) system which generated this result tra nsmitted reference range : <=0.2. The reference r davey was not used to int erpret this result as normal/abnormal . [facility]rapevineUfyoorgZNGOHSLYDT1805-98-85 16:49:00 Test Item Value Reference Range Interpretation Comments Eosinophils # (test code 0.1 See_Comment [A utomated message] The = Eosinophils #) system whic h generated this result tra nsmitted reference range : <=0.5. The reference r davey was not used to int erpret this result as normal/abnormal . [facility]rapevineFgqoravPVPMVVUAEQ2107-63-42 16:49:00 Test Item Value Reference Range Interpretation Comments Monocytes # (test code 0.8 See_Comment [Aut omated message] The = Monocytes #) system which generated this result tra nsmitted reference range : <=0.8. The reference r davey was not used to int erpret this result as normal/abnormal . [facility]rapevineWyopllwTCHOGYOHXB3085-15-88 16:49:00 Test Item Value Reference Range Interpretation Comments Lymphocytes # (test code = Lymphocytes 3.1 1.0-5.5 #) [facility] GrapevineUtsjrixIIGLADQWWP7841-22-35 16:49:00 Test Item Value Reference Range Interpretation Comments Segs-Bands # (test code = Segs-Bands #) 6.8 1.5-8.1 [facility] GrapevineQajtibbCLQLNKAQNB9549-09-75 16:49:00 Test Item Value Reference Range Interpretation Comments Basophils (test code = 0.6 See_Comment [Aut omated message] The Basophils) system which ge nerated this result tra nsmitted reference range : <=1.0. The reference r davey was not used to int erpret this result as normal/abnormal . [facility]vineVhcqtywFJMKNOTUZN3734-85-40 16:49:00 Test Item Value Reference Range Interpretation Comments Eosinophils (test code = 0.6 See_Comment [A utomated message] The Eosinophils) system which ge nerated this result tra nsmitted reference range : <=4.0. The reference r davey was not used to int erpret this result as normal/abnormal . [facility]rapevineRmvcnnwWYAAHFSJLW3623-06-23 16:49:00 Test Item Value Reference Range Interpretation Comments Monocytes (test code = Monocytes) 7.7 2.0-12.0 [facility]GdvbogzSEFVFADFRS2458-74-39 16:49:00 Test Item Value Reference Range Interpretation Comments Lymphocytes (test code = Lymphocytes) 28.6 20.0-40.0 [facility]vineQpwbvmeJRONRYYAGE0744-05-67 16:49:00 Test Item Value Reference Range Interpretation Comments Segs (test code = Segs) 62.5 45.0-75.0 [facility] [id number] 10:27:00 Test Item Value Reference Range Interpretation Comments Magnesium Lvl (test code = Magnesium 2.0 1.8-2.4 Lvl) [facility] CenterTkkmrwyNHCYTATSPNIN5408-69-42 10:27:00 Test Item Value Reference Range Interpretation Comments Chloride Lvl (test code = Chloride Lvl) 103 95-109 [facility]HvssijeVXLMVKZARDVB7495-57-73 10:27:00 Test Item Value Reference Range Interpretation Comments AGAP (test code = AGAP) 8.4 10.0-20.0 [facility] HospitalJqvlmbwTJHEVVHJYZWS0303-61-16 10:27:00 Test Item Value Reference Range Interpretation Comments Calcium Lvl (test code = Calcium Lvl) 9.0 8.5-10.5 [facility] HospitalArxcroeUKPQCIKSRUDQ3086-86-49 10:27:00 Test Item Value Reference Range Interpretation Comments CO2 (test code = CO2) 28 24-32 [facility] HospitalBfgoboqPAERLDXEMJJJ9808-71-90 10:27:00 Test Item Value Reference Range Interpretation Comments Glucose Lvl (test code = Glucose Lvl) 114 70-99 [facility] HospitalGgqlkvjHEUMJLRGHXSO6012-87-24 10:27:00 Test Item Value Reference Range Interpretation Comments BUN (test code = BUN) 21 7-22 [facility] HospitalBcjbwqkOVNDDKZDROUQ7460-79-88 10:27:00 Test Item Value Reference Range Interpretation Comments Creatinine Lvl (test code = Creatinine 1.52 0.50-1.40 Lvl) [facility] HospitalGrqlwiuIESCRBUDQGUA6995-83-57 10:27:00 Test Item Value Reference Range Interpretation Comments Sodium Lvl (test code = Sodium Lvl) 135 135-145 [facility] HospitalDbldqlpOEHGAYVMLUSD6024-04-75 10:27:00 Test Item Value Reference Range Interpretation Comments Potassium Lvl (test code = Potassium 4.4 3.5-5.1 Lvl) [facility] HospitalKodsxbyLZOWOVXVANXP2053-59-82 10:27:00 Test Item Value Reference Range Interpretation Comments eGFR (test code = eGFR) 55 [facility]vineYzcxupqDLFEYCNLQR9688-71-93 10:27:00 Test Item Value Reference Range Interpretation Comments Eosinophils (test code = 1.6 See_Comment [A utomated message] The Eosinophils) system which ge nerated this result tra nsmitted reference range : <=4.0. The reference r davey was not used to int erpret this result as normal/abnormal . [facility]vineQbzlzyaQIZWTGFRUD0872-43-76 10:27:00 Test Item Value Reference Range Interpretation Comments Lymphocytes # (test code = Lymphocytes 3.4 1.0-5.5 #) [facility] GrapevineSglynchBCRDUMPIBU1161-57-15 10:27:00 Test Item Value Reference Range Interpretation Comments Basophils (test code = 0.3 See_Comment [Aut omated message] The Basophils) system which ge nerated this result tra nsmitted reference range : <=1.0. The reference r davey was not used to int erpret this result as normal/abnormal . [facility]vineHzhdwtbTJBSCRZBQX3392-54-45 10:27:00 Test Item Value Reference Range Interpretation Comments Monocytes # (test code 0.6 See_Comment [Aut omated message] The = Monocytes #) system which generated this result tra nsmitted reference range : <=0.8. The reference r davey was not used to int erpret this result as normal/abnormal . [facility] GrapevineUiifceuGAQJNVPMAD5015-09-06 10:27:00 Test Item Value Reference Range Interpretation Comments Segs-Bands # (test code = Segs-Bands #) 5.3 1.5-8.1 [facility]rapevineDzlhgrwOVEIUJWGUA9938-33-17 10:27:00 Test Item Value Reference Range Interpretation Comments Segs (test code = Segs) 56.3 45.0-75.0 [facility]rapevineLiwxkspNZSBZARTTM1837-29-60 10:27:00 Test Item Value Reference Range Interpretation Comments Monocytes (test code = Monocytes) 6.0 2.0-12.0 [facility]rapevineTaqzxmjRJCBVXXGYF1906-24-74 10:27:00 Test Item Value Reference Range Interpretation Comments Lymphocytes (test code = Lymphocytes) 35.8 20.0-40.0 [facility] GrapevineXzooynnQFDDDVNRKH6426-64-87 10:27:00 Test Item Value Reference Range Interpretation Comments Eosinophils # (test code 0.2 See_Comment [A utomated message] The = Eosinophils #) system whic h generated this result tra nsmitted reference range : <=0.5. The reference r davey was not used to int erpret this result as normal/abnormal . [facility]rapevineLxyryqzJOONHSQTQM8522-05-58 10:27:00 Test Item Value Reference Range Interpretation Comments Platelet (test code = Platelet) 363 133-450 [facility]rapevineDgeysfzQQLLRDQXIB9979-46-57 10:27:00 Test Item Value Reference Range Interpretation Comments MPV (test code = MPV) 6.3 7.4-10.4 [facility] CenterUtgljxzBLWTISCPIW2435-24-59 10:27:00 Test Item Value Reference Range Interpretation Comments MCHC (test code = MCHC) 33.0 32.0-36.0 [facility] HospitalGyypgemZHXVQPZNBJ9139-35-86 10:27:00 Test Item Value Reference Range Interpretation Comments RDW (test code = RDW) 13.3 11.5-14.5 [facility] HospitalUsnnfisEBEBDXTPDO5424-27-26 10:27:00 Test Item Value Reference Range Interpretation Comments Hct (test code = Hct) 41.9 42.0-54.0 [facility] HospitalVjznyymSGFEWWBIME1456-84-73 10:27:00 Test Item Value Reference Range Interpretation Comments MCV (test code = MCV) 86.1 80.0-94.0 [facility] HospitalCvkccgmPZBDEUWDRL9482-70-82 10:27:00 Test Item Value Reference Range Interpretation Comments RBC (test code = RBC) 4.87 4.70-6.10 [facility] HospitalPzwghkvHBRKYLXACD2194-75-05 10:27:00 Test Item Value Reference Range Interpretation Comments Hgb (test code = Hgb) 13.8 14.0-18.0 [facility] CenterDlwbjbcFWTUEZXBKT4862-75-52 10:27:00 Test Item Value Reference Range Interpretation Comments WBC (test code = WBC) 9.4 3.7-10.4 [facility] CenterHmcwbjmKTLURQZEML2339-35-33 10:27:00 Test Item Value Reference Range Interpretation Comments MCH (test code = MCH) 28.4 pg 27.0-31.0 [facility] CenterCHEM UCDYJ9885-65-19 11:02:00 Test Item Value Reference Range Interpretation Comments Phosphorus (test code = Phosphorus) 2.4 2.5-4.5 [facility] CenterCHEM SJMDA0093-31-93 11:02:00 Test Item Value Reference Range Interpretation Comments Magnesium Lvl (test code = Magnesium 2.0 1.8-2.4 Lvl) [facility] CenterSPECIAL TEMVPIKXI3898-21-65 22:31:00 Test Item Value Reference Range Interpretation Comments Hgb A1C (test code = Hgb A1C) 6.9 [facility] CenterCARDIAC YUUGLEP4622-11-54 11:10:00 Test Item Value Reference Range Interpretation Comments proBNP (test code = 40 See_Comment [Automa rafia message] The proBNP) system which ge nerated this result tra nsmitted reference range : <=125. The reference r davey was not used to int erpret this result as haydee l/abnormal. [facility] RgvkdnaZVYHUMNBTN3170-47-01 11:10:00 Test Item Value Reference Range Interpretation Comments Etoh (%) (test code = Etoh (%)) no gt [facility] CenterJaublssXGPGGWSZQV9961-60-82 11:10:00 Test Item Value Reference Range Interpretation Comments Ethanol Lvl (test code = Ethanol Lvl) no gt [facility] VocalcomannCARDIAC ZUHRXIW6338-35-84 11:00:00 Test Item Value Reference Range Interpretation Comments CK MB (test code = CK MB) 1.2 0.5-3.6 [facility] CenterannCARQE VenturesAC XMCUAFD4608-59-11 11:00:00 Test Item Value Reference Range Interpretation Comments Troponin-I (test code no gt See_Comment [Auto mated message] The = Troponin-I) system which g enerated this result transmit rafia reference range : <=0.40. The reference r davey was not used to interpr et this result as haydee l/abnormal. [facility] CenterOutroop Inc.CARQE VenturesAC LTNZBSX4165-54-38 11:00:00 Test Item Value Reference Range Interpretation Comments Total CK (test code = Total CK) 86 12-191 [facility] CenterePrepAC BXUYYNO2635-26-83 11:00:00 Test Item Value Reference Range Interpretation Comments CK MB Index (test 1.4 See_Comment [Automate d message] The code = CK MB Index) system w [facility] generated this result transmit rafia reference range : <=2.5. The reference range was not used to interpr et this result as haydee l/abnormal. [facility] SissfmrFHNZMXEQCM2168-31-04 11:00:00 Test Item Value Reference Range Interpretation Comments PTT (test code = PTT) 26.0 s 22.9-35.8 [facility] PnyqpyfLUZIYUHWLW6690-98-31 11:00:00 Test Item Value Reference Range Interpretation Comments PT (test code = PT) 13.0 s 12.0-14.7 [facility] CenterYsvauywOUAWKDETOG8325-14-72 11:00:00 Test Item Value Reference Range Interpretation Comments INR (test code = INR) 0.96 0.85-1.17 [facility] Suda YHHBG1861-42-37 21:20:00 Test Item Value Reference Range Interpretation Comments Lipase Lvl (test code = Lipase Lvl) 220 73-393 [facility] HospitalFcdusbtVKJLKHZIPGEU2415-45-65 21:20:00 Test Item Value Reference Range Interpretation Comments AGAP (test code = AGAP) 12.1 10.0-20.0 [facility] HospitalLpckksaSUWLRYPPOGDJ2499-55-03 21:20:00 Test Item Value Reference Range Interpretation Comments Globulin (test code = Globulin) 4.0 2.0-4.0 [facility] HospitalUqopallQUILMPOOMBRD7853-94-97 21:20:00 Test Item Value Reference Range Interpretation Comments A/G Ratio (test code = A/G Ratio) 0.8 0.7-1.6 [facility] HospitalEzgagwlQKXNDZFYOYEG2239-79-41 21:20:00 Test Item Value Reference Range Interpretation Comments B/C Ratio (test code = B/C Ratio) 12 6-25 [facility] HospitalXwtkbcbYCQXFVEZGUMD3692-92-63 21:20:00 Test Item Value Reference Range Interpretation Comments Bili Total (test code = Bili Total) 0.5 0.2-1.3 [facility] HospitalXxklvrhVSYGZGFIPXSB5985-50-49 21:20:00 Test Item Value Reference Range Interpretation Comments Alk Phos (test code = Alk Phos) 133 39-136 [facility] HospitalYmnnkdbZYDJYGWYFFKO9945-05-63 21:20:00 Test Item Value Reference Range Interpretation Comments AST (test code = AST) 19 See_Comment [Auto mated message] The system which ge nerated this result transmit rafia reference range : <=37. The reference range was not used to interpr et this result as haydee l/abnormal. [facility] HospitalLxipfbyZZYFZJARSOHF5249-48-70 21:20:00 Test Item Value Reference Range Interpretation Comments eGFR (test code = eGFR) 54 [facility] HospitalPfvrgxoZTKOJRRTPJUF5104-17-55 21:20:00 Test Item Value Reference Range Interpretation Comments Albumin Lvl (test code = Albumin Lvl) 3.4 3.5-5.0 [facility] HospitalMtyxiwrXNCTUZXQJASJ5524-53-79 21:20:00 Test Item Value Reference Range Interpretation Comments ALT (test code = ALT) 44 See_Comment [Auto mated message] The system which ge nerated this result transmit rafia reference range : <=65. The reference range was not used to interpr et this result as haydee l/abnormal. [facility] HospitalBjlixchFNOVOULNTJCF2039-07-27 21:20:00 Test Item Value Reference Range Interpretation Comments Calcium Lvl (test code = Calcium Lvl) 8.8 8.5-10.5 [facility] HospitalFaddppuYTHSWFAYXDZO3177-31-35 21:20:00 Test Item Value Reference Range Interpretation Comments CO2 (test code = CO2) 23 24-32 [facility] HospitalFugsxpwBUXVECOOYFGB0018-32-24 21:20:00 Test Item Value Reference Range Interpretation Comments Total Protein (test code = Total 7.4 6.4-8.4 Protein) [facility] HospitalBadruazVGZGLKXAVRKU5905-02-29 21:20:00 Test Item Value Reference Range Interpretation Comments Sodium Lvl (test code = Sodium Lvl) 139 135-145 [facility] HospitalLebnpkwZXYINUBNUPMG4986-43-89 21:20:00 Test Item Value Reference Range Interpretation Comments Potassium Lvl (test code = Potassium 4.1 3.5-5.1 Lvl) [facility] HospitalMmxbtwaDQAMJGPXTHAL6863-42-97 21:20:00 Test Item Value Reference Range Interpretation Comments Chloride Lvl (test code = Chloride Lvl) 108 95-109 [facility] HospitalLkwhmtgAZBTDUSLQXSO8378-29-66 21:20:00 Test Item Value Reference Range Interpretation Comments Glucose Lvl (test code = Glucose Lvl) 187 70-99 [facility] HospitalAlejzcxUYWXBVUXEGUF8248-01-05 21:20:00 Test Item Value Reference Range Interpretation Comments BUN (test code = BUN) 18 7-22 [facility] HospitalOinxxssTLMTLIFCXMPL9724-74-67 21:20:00 Test Item Value Reference Range Interpretation Comments Creatinine Lvl (test code = Creatinine 1.56 0.50-1.40 Lvl) [facility]vineNezvpwkCDGEZYTVTC2121-54-05 21:20:00 Test Item Value Reference Range Interpretation Comments Eosinophils # (test code 0.3 See_Comment [A utomated message] The = Eosinophils #) system whic h generated this result tra nsmitted reference range : <=0.5. The reference r davey was not used to int erpret this result as normal/abnormal . [facility] GrapevineLmbvpfcNALEIMCVQK6610-41-10 21:20:00 Test Item Value Reference Range Interpretation Comments Segs-Bands # (test code = Segs-Bands #) 7.8 1.5-8.1 [facility] GrapevineAiaabrnSCELFTMGTK7960-96-93 21:20:00 Test Item Value Reference Range Interpretation Comments Lymphocytes # (test code = Lymphocytes 1.4 1.0-5.5 #) [facility]rapevinePapxrjkQKRGZYDRCU3635-58-17 21:20:00 Test Item Value Reference Range Interpretation Comments Monocytes # (test code 0.7 See_Comment [Aut omated message] The = Monocytes #) system which generated this result tra nsmitted reference range : <=0.8. The reference r davey was not used to int erpret this result as normal/abnormal . [facility] GrapevineIaqpayvQIKMIGDTLK0925-60-68 21:20:00 Test Item Value Reference Range Interpretation Comments Segs (test code = Segs) 76.7 45.0-75.0 [facility]rapevinePhyguikHWFFMJMVPI7011-55-97 21:20:00 Test Item Value Reference Range Interpretation Comments Lymphocytes (test code = Lymphocytes) 13.4 20.0-40.0 [facility] GrapevineUwwrzgsPJJJNYAFLM2501-02-08 21:20:00 Test Item Value Reference Range Interpretation Comments Monocytes (test code = Monocytes) 7.2 2.0-12.0 [facility] GrapevineDsgecveVDXXCKDRTL3814-10-32 21:20:00 Test Item Value Reference Range Interpretation Comments Eosinophils (test code = 2.5 See_Comment [A utomated message] The Eosinophils) system which ge nerated this result tra nsmitted reference range : <=4.0. The reference r davey was not used to int erpret this result as normal/abnormal . [facility] GrapevineYbpqgffIXIXUMKOAP3584-08-92 21:20:00 Test Item Value Reference Range Interpretation Comments Basophils (test code = 0.2 See_Comment [Aut omated message] The Basophils) system which ge nerated this result tra nsmitted reference range : <=1.0. The reference r davey was not used to int erpret this result as normal/abnormal . [facility] GrapevineTvfrqsyUQISKPWJZK5491-55-12 21:20:00 Test Item Value Reference Range Interpretation Comments MCHC (test code = MCHC) 32.9 32.0-36.0 [facility] GrapevineRoeqoxjYVLEAYSZLC5069-02-64 21:20:00 Test Item Value Reference Range Interpretation Comments RDW (test code = RDW) 13.9 11.5-14.5 [facility] GrapevineDungwduDXIBWWYNLE8195-29-47 21:20:00 Test Item Value Reference Range Interpretation Comments MCH (test code = MCH) 29.7 pg 27.0-31.0 [facility] GrapevineAsdmbzvECBNHHURVI6558-75-92 21:20:00 Test Item Value Reference Range Interpretation Comments MPV (test code = MPV) 6.9 7.4-10.4 [facility]rapevineScevzfpOZPVEOFTSA9663-44-96 21:20:00 Test Item Value Reference Range Interpretation Comments Platelet (test code = Platelet) 286 133-450 [facility] GrapevineYbqmhqzRPDCUYMPHU2729-35-91 21:20:00 Test Item Value Reference Range Interpretation Comments WBC (test code = WBC) 10.1 3.7-10.4 [facility] GrapevineFrvlsguIRSQXXRSTF0922-39-32 21:20:00 Test Item Value Reference Range Interpretation Comments RBC (test code = RBC) 5.49 4.70-6.10 [facility] GrapevineAjolalkXYHAPAZZZZ5899-10-84 21:20:00 Test Item Value Reference Range Interpretation Comments MCV (test code = MCV) 90.3 80.0-94.0 [facility] GrapevineQbpzhyeSRHOISJXOE5524-30-65 21:20:00 Test Item Value Reference Range Interpretation Comments Hct (test code = Hct) 49.6 42.0-54.0 [facility] GrapevineQoyhgihOWSHRBDTUK3863-34-20 21:20:00 Test Item Value Reference Range Interpretation Comments Hgb (test code = Hgb) 16.3 14.0-18.0 [facility]
[2022-03-06] MEDS ORDERED: IBUPROFEN 400 MG TAB ONE (10:00)
--- NOTE | 2022-03-06 10:36 | RAD REPORT ---
EXAM DESCRIPTION: Luke Single View03/06/2022 10:28 am CLINICAL HISTORY: Shortness of breath COMPARISON: 2021 FINDINGS: The lungs appear clear of acute infiltrate. The heart is normal size IMPRESSION: No acute abnormalities displayed
[2022-03-06 10:40] LABS: SARS-COV-2 RT PCR NEGATIVE (NEGATIVE)
--- NOTE | 2022-03-06 10:45 | EDPHYS ---
Physician Documentation [facility] Name: Sanjeev Mcpherson Age: 51 yrs Sex: Male : 1970 Arrival Date: 03/06/2022 Time: 09:26 Bed 12 Private MD: ED Physician Connor Dupont HPI: 03/06 09:46 This 51 yrs old Male presents to ER via Ambulatory with complaints of Flu [facility] Symptoms. 09:46 Is a 51-year-old male with a history of diabetes mellitus the presents emerged part jm with complaints of cough, congestion, sore throat, shortness of breath, bleeding approximately 1 day ago. Multiple family was have similar symptoms.. 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 - Social history:: Smoking status: Patient denies any tobacco usage or history of. ROS: 09:46 Cardiovascular: Negative for chest pain, palpitations, and edema. jmm 09:46 Constitutional: Positive for body aches, fever. 09:46 ENT: Positive for sore throat. 09:46 Respiratory: Positive for cough, shortness of breath. 09:46 All other systems are negative. Exam: 09:46 Constitutional: This is a well developed, well nourished patient who is awake, alert, jmm and in no acute distress. Head/Face: atraumatic. Eyes: EOMI, no conjunctival erythema appreciated 09:46 Neck: Trachea midline, Supple Chest/axilla: Normal chest wall appearance and motion. Cardiovascular: Regular rate and rhythm. No edema appreciated Respiratory: Normal respirations, no respiratory distress appreciated Abdomen/GI: Non distended Back: Normal ROM Skin: General appearance color normal MS/ Extremity: Moves all extremities, no obvious deformities appreciated, no edema noted to the lower extremities Neuro: Awake and alert Psych: Behavior is normal, Mood is normal, Patient is cooperative and pleasant 09:46 ENT: TM's: are normal, Posterior pharynx: erythema, that is mild. Vital Signs: 09:29 BP 149 / 94; Pulse 97; Resp 24 S; Temp 98.6(TE); Pulse Ox 98% on R/A; Weight 86.18 kg aa5 (R); Height 5 ft. 0 in. (152.40 cm) (R); 09:29 Body Mass Index 37.11 (86.18 kg, 152.40 cm) aa5 MDM: 09:46 Patient medically screened. [facility] 10:42 Data reviewed: vital signs, nurses notes. I considered the following discharge [facility] prescriptions or medication management in the emergency department I discussed and recommended Over The Counter medications. Care significantly affected by the following chronic conditions: Diabetes. Counseling: I had a detailed discussion with the patient and/or guardian regarding: the historical points, exam findings, and any diagnostic results supporting the discharge/admit diagnosis, lab results, radiology results, the need for outpatient follow up, to return to the emergency department if symptoms worsen or persist or if there are any questions or concerns that arise at home. 03/06 09:46 Order name: COVID-19/FLU A+B; Complete Time: 10:40 [facility] 03/06 09:46 Order name: Strep; Complete Time: 10:12 [facility] 03/06 09:47 Order name: Chest Single View XRAY; Complete Time: 10:37 [facility] 03/06 10:12 Order name: Throat Culture EDMS Administered Medications: 10:00 Drug: Ibuprofen 400 mg Route: PO; ap3 10:53 Follow up: Response: No adverse reaction ap3 Disposition: 12:47 Co-signature as Attending Physician, Connor Duopnt MD I reviewed the patient's care rt provided by the Advanced Practice Provider and agree with the diagnosis and treatment plan. Disposition Summary: 03/06/22 10:45 Discharge Ordered Location: Home [facility] Condition: Stable [facility] Diagnosis - Acute pharyngitis, unspecified [facility] Followup: [facility] - With: Private Physician - When: 2 - 3 days - Reason: Recheck today's complaints, Continuance of care, Re-evaluation by your physician Discharge Instructions: - Discharge Summary Sheet [facility] - Pharyngitis [facility] Forms: - Medication Reconciliation Form [facility] - Thank You Letter [facility] - Antibiotic Education [facility] - Prescription Opioid Use [facility] Prescriptions: - cefdinir 300 mg Oral capsule - take 1 capsule by ORAL route every 12 hours for 10 days; 20 capsule; Refills: [facility] 0, Product Selection Permitted - promethazine-DM - take 10 milliliter by ORAL route every 4-6 hours As needed; 200 milliliter; jm Refills: 0, Product Selection Permitted - albuterol sulfate 90 mcg/actuation Inhalation HFA aerosol inhaler - inhale 2 puff by INHALATION route every 4 hours; 1 Pump; Refills: 0, Product [facility] Selection Permitted Signatures: Dispatcher [employer] Mihir Greer PA PA jmm Calderon, Audri, ДМИТРИЙ RN aa5 Randi Abdullahi RN RN ap3 Connor Dupont MD MD rt
--- NOTE | 2022-03-06 10:45 | ER ---
Nurse's Notes [facility] Name: Sanjeev Mcpherson Age: 51 yrs Sex: Male : 1970 Arrival Date: 03/06/2022 Time: 09:26 Bed 12 Private MD: Diagnosis: Acute pharyngitis, unspecified Presentation: 03/06 09:29 Chief complaint: Patient states: "I have a headache, my eyes hurt, my chest hurts aa5 because I have a cough". Pt also reports SOB. Coronavirus screen: cough unrelated to allergies, shortness of breath. Ebola Screen: Patient denies travel to an Ebola-affected area in the 21 days before illness onset. Initial Sepsis Screen: Does the patient meet any 2 criteria? HR > 90 bpm. Does the patient have a suspected source of infection? Yes:. Risk Assessment: Do you want to hurt yourself or someone else? Patient reports no desire to harm self or others. Onset of symptoms was February 2022. 09:29 Acuity: JULIANNE 3 aa5 09:29 Method Of Arrival: Ambulatory aa5 Triage Assessment: 09:37 General: Appears in no apparent distress. comfortable, Behavior is calm, cooperative. ap3 Pain: Complains of pain in chest Aggravated by cough. Neuro: Level of Consciousness is awake, alert, obeys commands, Oriented to person, place, time, situation. Cardiovascular: Patient's skin is warm and dry. Respiratory: Reports cough that is Airway is patent Respiratory effort is even, unlabored. 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 - Social history:: Smoking status: Patient denies any tobacco usage or history of. Screenin:36 [facility] ED Fall Risk Assessment (Adult) History of falling in the last 3 months, ap3 including since admission No falls in past 3 months (0 pts). Abuse screen: Denies threats or abuse. Nutritional screening: No deficits noted. Tuberculosis screening: No symptoms or risk factors identified. Vital Signs: 09:29 BP 149 / 94; Pulse 97; Resp 24 S; Temp 98.6(TE); Pulse Ox 98% on R/A; Weight 86.18 kg aa5 (R); Height 5 ft. 0 in. (152.40 cm) (R); 09:29 Body Mass Index 37.11 (86.18 kg, 152.40 cm) aa5 ED Course: 09:26 Patient arrived in ED. mr 09:26 Mihir Odom PA is PHCP. [facility] 09:26 Connor Dupont MD is Attending Physician. jm 09:29 Arm band placed on. aa5 09:30 Triage completed. aa5 09:36 Randi Abdullahi, ДМИТРИЙ is Primary Nurse. ap3 09:38 Patient has correct armband on for positive identification. Bed in low position. Call ap3 light in reach. Door closed. Noise minimized. 09:55 Strep Sent. ap3 09:55 COVID-19/FLU A+B Sent. ap3 10:29 Chest Single View XRAY In Process Unspecified. EDMS 10:53 No provider procedures requiring assistance completed. Patient did not have IV access ap3 during this emergency room visit. Administered Medications: 10:00 Drug: Ibuprofen 400 mg Route: PO; ap3 10:53 Follow up: Response: No adverse reaction ap3 Medication: 09:38 VIS not applicable for this client. ap3 Outcome: 10:45 Discharge ordered by . [facility] 11:03 Discharged to home ambulatory. ap3 11:03 Condition: good 11:03 Discharge instructions given to patient, Instructed on discharge instructions, follow up and referral plans. Demonstrated understanding of instructions, follow-up care. 11:03 Patient left the ED. ap3 Signatures: Dispatcher [employer] EDMS Mihir Odom PA PA jmm NavasNayeli mr PrinceSierra RN RN aa Randi Abdullahi RN RN ap3
[2022-03-06 11:31] VITALS: BP 149/94; TEMP 98.6; O2SAT 98
== END 2022-03-06 11:03 | disposition home or self-care (01) ==
LOC: ER 09:19
DX: J02.9 Acute pharyngitis, unspecified (principal); R05.9 Cough, unspecified; R50.9 Fever, unspecified; I10 Essential (primary) hypertension; Z20.822 Contact with and (suspected) exposure to COVID-19; Z90.2 Acquired absence of lung [part of]; Z88.4 Allergy status to anesthetic agent; Z91.048 Other nonmedicinal substance allergy status
CPT/HCPCS: 0240U; 71045; 87070; 87081

== ENCOUNTER 2022-04-29 18:59 | Emergency (ER) | payer SELFPAY ==
--- OUTSIDE RECORDS SUMMARY | 2022-04-29 19:08 | XMS REPORT | Continuity of Care Document ---
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 2015-02 No Notes: Shin elton ISolone 2-19 (Same l SODium 10:52: as:Solu-ME Venecia nn SUCCinate 00 DROL, A-Methapre d) Diphenhydra 2015-02 No Notes: Shin elton mine 2-19 (Same as: l 10:52: Benadryl) [place] 00 Famotidine 2015-02 No Notes: Memor ia 2-19 (Same as: l 10:52: Pepcid) [place] 00 Can be dilute in 5-10cc NS [...] ia 2-19 Take with l 10:46: food. [place] 00 Albuterol 2015-02 No Notes: Memori a 0.833 MG/ML 2-19 (Same as: l / 10:46: Duoneb) Mikey Ipratropium 00 [place] 0.167 MG/ML Inhalant Solution [DuoNeb] 12 HR 2015-02 No Notes: Memoria Chlorphenir 2-19 (chlorphen l amine 10:46: iramine-hy Masood n Maleate 1.6 00 drocodone MG/ML / 8-10mg/5ml Hydrocodone LIQ) Bitartrate Non-formul 2 MG/ML jamal drug. Extended (Same As: Release Tussionex Suspension [employer] [Tussionex c) [employer] ER] Prednisone 2015-02 No Notes: Memor ia 2-19 Take with l 10:46: food. Albuterol 2015-02 No Notes: Memori a 0.833 MG/ML 2-19 (Same as: l / 10:46: Duoneb) Mikey Ipratropium 00 [place] 0.167 MG/ML Inhalant Solution [DuoNeb] Saline 2015-02 No Notes: Memoria Flush 0.9% 2-19 (Same as: l 10:45: BD Mikey 00 Posiflush) Saline 2015-02 No Notes: Memoria Flush 0.9% 2-19 (Same as: l 10:45: BD [place] 00 Posiflush) Ondansetron 0 Yes 4 mg = 1 Me moria 4 MG 6-22 tab, PO, l Disintegrat 22:34: TID, Masood n ing Tablet 00 Dissolve [Zofran] tab under tongue, X 3 day, # 9 tab, 0 Refill(s) Ondansetron 0 Yes 4 mg = 1 Me moria [...] Capsule 28 cap, 0 [Bentyl] Refill(s) tramadol 2016-0 Yes 50 mg = 1 Shin elton hydrochlori 6-22 tab, PO, l de 50 MG 22:33: BID, X 5 Venecia nn Oral Tablet 00 day, # 10 tab, 0 Refill(s) Dicyclomine 2016-0 Yes 10 mg = 1 M emoria Hydrochlori 6-22 cap, PO, l de 10 MG 22:33: QID-Before Her izquierdo Oral 00 Meals, # Capsule 28 cap, 0 [Bentyl] Refill(s) tramadol 2016-0 Yes 50 mg = 1 Shin elton hydrochlori 6-22 tab, PO, l de 50 MG 22:33: BID, X 5 Venecia nn Oral Tablet 00 day, # 10 tab, 0 Refill(s) Morphine 2016-0 No 4 mg, Memoria 6-22 Route: l 20:48: IVP, ONCE, Dosing Weight 79.545, kg, Priority: STAT, Start date: 08/10/15 15:48:00 CDT, Stop date: 08/10/15 15:48:00 CDT Ondansetron 2016-0 No 4 mg, Memor ia 08-09 Route: l 20:48: IVP, ONCE, Dosing Weight 79.545, kg, Priority: STAT, Start date: 08/10/15 15:48:00 CDT, Stop date: 08/10/15 15:48:00 CDT Saline 2015-0 No Notes: Memoria Flush 0.9% - (Same as: l 20:48: BD Posiflush) Sodium 2015-0 No 1,000 mL, Memori a Chloride 6-22 2,000 l 0.154 20:48: ml/hr, [place] MEQ/ML 00 Infuse Injectable Over: 30 Solution minutes, Route: IV, ONCE, Priority: STAT, Dosing Weight 79.545 kg, Start date: 08/10/15 15:48:00 CDT, Duration: 1 doses or times, Stop date: 08/10/15 15:48:00 CDT Sodium 2016-0 No 1,000 mL, Memori a Chloride 6-22 2,000 l 0.154 20:48: ml/hr, [place] MEQ/ML 00 Infuse Injectable Over: 30 Solution minutes, Route: IV, ONCE, Priority: STAT, Dosing Weight 79.545 kg, Start date: 08/10/15 15:48:00 CDT, Duration: 1 doses or times, Stop date: 08/10/15 15:48:00 CDT Morphine 0 No 4 mg, Memoria 08-09 Route: l 20:48: IVP, ONCE, Dosing Weight 79.545, kg, Priority: STAT, Start date: 08/10/15 15:48:00 CDT, Stop date: 08/10/15 15:48:00 CDT Ondansetron No 4 mg, Memor ia 08-09 Route: l 20:48: IVP, ONCE, Dosing Weight 79.545, kg, Priority: STAT, Start date: 08/10/15 15:48:00 CDT, Stop date: 08/10/15 15:48:00 CDT Saline No Notes: Memoria Flush 0.9% 08-09 (Same as: l 20:48: BD [place] 00 Posiflush) bacitracin- No 1 appl, Mem oria polymyxin B 7-15 BOTH EYES, l ophthalmic 05:00: QID, # 3 Her izquierdo ointment 00 gm, 0 Refill(s) bacitracin- No 1 appl, Mem oria polymyxin B 7-15 BOTH EYES, l ophthalmic 05:00: QID, # 3 Her izquierdo ointment 00 gm, 0 Refill(s) Motrin 800 Yes Talon Moreno 800 mg = 1 Memoria mg oral 2-12 Weather[place] tab, PO, l tablet 22:26: Q8H, Pain, Venecia nn 00 Take with food, # 30 tab, 0 Refill(s)T ihsan with food acetaminoph Yes Talon Moreno 1-2 tab, Memoria en-hydrocod 2-12 Weathers PO, Q4-6H, l one 325 22:26: Pain, # 15 Herm vonnie mg-5 mg 00 tab, 0 oral tablet Refill(s) Motrin 800 Yes Talon Moreno 800 mg = 1 Memoria mg oral 2-12 [place] tab, PO, l tablet 22:26: Q8H, Pain, Venecia nn 00 Take with food, # 30 tab, 0 Refill(s)T ihsan with food acetaminoph Yes Talon Josh 1-2 tab, Memoria en-hydrocod -12 [place] PO, Q4-6H, l one 325 22:26: Pain, # 15 Herm vonnie mg-5 mg 00 tab, 0 oral tablet Refill(s) [place] No Talon Josh 2 tab, Memoria oral tablet 2-12 [place] Route: PO, l 21:42: Drug Form: [place] 00 TAB, Dosing Weight 85.455, kg, ONCE, Start date: 04/01/13 15:42:00, Stop date: 04/01/13 15:42:00(S ej as: [place] 325/5) Do not exceed 4gm/day of acetaminop hen. Motrin No Talon Josh 800 mg, 2 Me moria 2-12 Weather[place] tab, l 21:42: Route: PO, [place] 00 Drug form: TAB, ONCE, Dosing Weight 85.455, kg, Priority: STAT, Start date: 04/01/13 15:42:00, Stop date: 04/01/13 15:42:00(S ej as: Motrin) "Do Not Crush" Give with food. [place] 325 No Talon Josh 2 tab, Memoria oral tablet -12 s Route: PO, l 21:42: Drug Form: Mikey 00 TAB, Dosing Weight 85.455, kg, ONCE, Start date: 04/01/13 15:42:00, Stop date: 04/01/13 15:42:00(S ej as: [place] 325/5) Do not exceed 4gm/day of acetaminop hen. Motrin No Talon Josh 800 mg, 2 Me moria 2-12 [place] tab, l 21:42: Route: PO, [place] 00 Drug form: TAB, ONCE, Dosing Weight 85.455, kg, Priority: STAT, Start date: 04/01/13 15:42:00, Stop date: 04/01/13 15:42:00(S ej as: Motrin) "Do Not Crush" Give with food. Atorvastati Atorvastati Yes Ramon TAKE 1 Common n Calcium n Calcium [facility] TABLET BY [facility] MOUTH ONCE - [facility] DAILY [facility] Novolin Novolin Yes Ramon 30 units Com mon 70/30 70/30 [facility] in [facility] morning , - [facility] [address] [facility] the [facility] Vitamin D Vitamin D Yes Ramon TAKE 1 C ommon (Ergocalcif (Ergocalcif Harris CAPSULE BY Spirit mirian) mirian) MOUTH ONCE - [facility] A WEEK [facility] Lisinopril Lisinopril Yes Ramon TAKE 1 Common Harris TABLET BY [facility] MOUTH ONCE - [facility] DAILY [facility] NovoLIN NovoLIN No QD NovoLIN 70/30 70/30 70/30 (70-30) 100 (70-30) 100 (70-30) UNIT/ML UNIT/ML 100 UNIT/ML Atorvastati Atorvastati No QD Atorvastat n Calcium n Calcium in Calcium 40 MG 40 MG 40 MG Vitamin D Vitamin D No QD Vitamin D (Ergocalcif (Ergocalcif (Ergocalci mirian) 1.25 mirian) 1.25 ferol) MG (28082 MG (82698 1.25 MG UT) UT) (24093 UT) Lisinopril Lisinopril No QD Lisinopril 20 [...] (Ergocalci mirian) 1.25 mirian) 1.25 ferol) MG (70371 MG (17532 1.25 MG UT) UT) (75808 UT) Vitamin D Vitamin D No QD Vitamin D (Ergocalcif (Ergocalcif (Ergocalci mirian) 1.25 mirian) 1.25 ferol) MG (45806 MG (68111 1.25 MG UT) UT) (59166 UT) Lisinopril Lisinopril No QD Lisinopril 20 [...] (Ergocalci mirian) 1.25 mirian) 1.25 ferol) MG (49607 MG (21148 1.25 MG UT) UT) (29384 UT) glipiZIDE glipiZIDE No 1{table BID glipiZIDE [...] (Ergocalci mirian) 1.25 mirian) 1.25 ferol) MG (05739 MG (82871 1.25 MG UT) UT) (88769 UT) glipiZIDE glipiZIDE No 1{table BID glipiZIDE [...] (Ergocalci mirian) 1.25 mirian) 1.25 ferol) MG (91632 MG (98507 1.25 MG UT) UT) (46156 UT) glipiZIDE glipiZIDE No 1{table BID glipiZIDE [...] (Ergocalci mirian) 1.25 mirian) 1.25 ferol) MG (04993 MG (90126 1.25 MG UT) UT) (77007 UT) Breo Breo No 1{puff} QD Breo [...] (Ergocalci mirian) 1.25 mirian) 1.25 ferol) MG (43688 MG (51521 1.25 MG UT) UT) (07229 UT) Breo Breo No 1{puff} QD Breo [...] (Ergocalci mirian) 1.25 mirian) 1.25 ferol) MG (47713 MG (26323 1.25 MG UT) UT) (21612 UT) Breo Breo No 1{puff} QD Breo [...] (Ergocalci mirian) 1.25 mirian) 1.25 ferol) MG (91502 MG (42974 1.25 MG UT) UT) (42693 UT) ProAir HFA ProAir HFA No 2{puffs [...] (Ergocalci mirian) 1.25 mirian) 1.25 ferol) MG (76222 MG (00927 1.25 MG UT) UT) (97372 UT) ProAir HFA ProAir HFA No 2{puffs [...] (Ergocalci mirian) 1.25 mirian) 1.25 ferol) MG (86613 MG (72054 1.25 MG UT) UT) (80290 UT) ProAir HFA ProAir HFA No 2{puffs [...] (Ergocalci mirian) 1.25 mirian) 1.25 ferol) MG (60007 MG (56862 1.25 MG UT) UT) (81569 UT) ProAir HFA ProAir HFA No 2{puffs [...] (Ergocalci mirian) 1.25 mirian) 1.25 ferol) MG (86862 MG (16779 1.25 MG UT) UT) (45115 UT) Breo Breo No 1{puff} QD Breo [...] (Ergocalci mirian) 1.25 mirian) 1.25 ferol) MG (13877 MG (46745 1.25 MG UT) UT) (82335 UT) Atorvastati Atorvastati No QD Atorvastat n [...] (Ergocalci mirian) 1.25 mirian) 1.25 ferol) MG (44370 MG (02767 1.25 MG UT) UT) (50139 UT) Atorvastati Atorvastati No QD Atorvastat n [...] (Ergocalci mirian) 1.25 mirian) 1.25 ferol) MG (02665 MG (54365 1.25 MG UT) UT) (76325 UT) Atorvastati Atorvastati No QD Atorvastat n [...] Vaccine 2020-05-04 Completed [facility] (Nadeem) (imgfave) 10:44:00 [facility] COVID-19 Vaccine COVID-19 Vaccine 2020-05-04 Completed [facility] (Nadeem) (imgfave) 10:44:00 [facility] COVID-19 Vaccine COVID-19 Vaccine 2020-05-04 Completed [facility] (Nadeem) (imgfave) 10:44:00 [facility] COVID-19 Vaccine COVID-19 Vaccine 2020-05-04 Completed [facility] (Nadeem) (imgfave) 10:44:00 [facility] COVID-19 Vaccine COVID-19 Vaccine 2020-05-04 Completed [facility] ([facility]adeem) (imgfave) 10:44:00 [facility] COVID-19 Vaccine COVID-19 Vaccine 2020-05-04 Completed [facility] ([facility]adeem) (imgfave) 10:44:00 [facility] COVID-19 Vaccine COVID-19 Vaccine 2020-05-04 Completed [facility] ([facility]em) (imgfave) 10:44:00 [facility] COVID-19 Vaccine COVID-19 Vaccine 2020-05-04 Completed [facility] ([facility]adeem) (imgfave) 10:44:00 [facility] COVID-19 Vaccine COVID-19 Vaccine 2020-05-04 Completed [facility] ([facility]em) (imgfave) 10:44:00 [facility] COVID-19 Vaccine COVID-19 Vaccine 2020-05-04 Completed [facility] ([facility]em) (imgfave) 10:44:00 [facility] COVID-19 Vaccine COVID-19 Vaccine 2020-05-04 Completed [facility] ([facility]adeem) (imgfave) 10:44:00 [facility] COVID-19 Vaccine COVID-19 Vaccine 2020-05-04 Completed [facility] ([facility]adeem) (Nadeem) 10:44:00 - [facility] COVID-19 Vaccine COVID-19 Vaccine 2020-05-04 Completed [facility] (Nadeem) (Nadeem) 10:44:00 [facility] COVID-19 Vaccine COVID-19 Vaccine 2020-05-04 Completed [facility] ([facility]em) (Nadeem) 10:44:00 - [facility] COVID-19 Vaccine COVID-19 Vaccine 2020-05-04 Completed [facility] ([facility]em) (Nadeem) 10:44:00 [facility] COVID-19 Vaccine COVID-19 Vaccine 2020-05-04 Completed [facility] (Nadeem) 10:44:00 [facility] COVID-19 Vaccine COVID-19 Vaccine 2020-05-04 Completed [facility] ([facility]em[facility] (Nadeem) 10:44:00 [facility] Afluria single dose Afluria single dose 2019-11-18 Completed [facility] 13:06:00 [facility] Afluria single dose Afluria single dose 2019-11-18 Completed [facility] 13:06:00 [facility] Afluria single dose Afluria single dose 2019-11-18 Completed [facility] 13:06:00 [facility] Afluria single dose Afluria single dose 2019-11-18 Completed [facility] 13:06:00 [facility] Afluria single dose Afluria single dose 2019-11-18 Completed [facility] 13:06:00 [facility] Afluria single dose Afluria single dose 2019-11-18 Completed [facility] 13:06:00 [facility] Afluria single dose Afluria single dose 2019-11-18 Completed [facility] 13:06:00 [facility] Afluria single dose Afluria single dose 2019-11-18 Completed [facility] 13:06:00 [facility] Afluria single dose Afluria single dose 2019-11-18 Completed [facility] 13:06:00 [facility] Afluria single dose Afluria single dose 2019-11-18 Completed [facility] 13:06:00 - [facility] Afluria single dose Afluria single dose 2019-11-18 Completed [facility] 13:06:00 - [facility] Afluria single dose Afluria single dose 2019-11-18 Completed [facility] 13:06:00 - [facility] Afluria single dose Afluria single dose 2019-11-18 Completed [facility] 13:06:00 - [facility] Afluria single dose Afluria single dose 2019-11-18 Completed [facility] 13:06:00 - [facility] Afluria single dose Afluria single dose 2019-11-18 Completed [facility] 13:06:00 - [facility] Afluria single dose Afluria single dose 2019-11-18 Completed [facility] 13:06:00 - [facility] Afluria single dose Afluria single dose 2019-11-18 Completed [facility] 13:06:00 [facility] Vital Signs Vital Name Observation Time Observation Value Comments Source height 2021-04-18 14:20:00 70 [in_i] [facility] weight 2021-04-18 14:20:00 205.8 [lb_av] [facility] temperature 2021-04-18 14:20:00 98.0 [degF] [facility] bmi 2021-04-18 14:20:00 29.53 kg/m2 [facility] oximetry 2021-04-18 14:20:00 96 % [facility] respiratory rate 2021-04-18 14:20:00 18 /min Comm on [facility] blood pressure 2021-04-18 14:20:00 117 mm[Hg] [facility] - systolic [facility] blood pressure 2021-04-18 14:20:00 86 mm[Hg] [facility] diastolic [facility] height 2021-03-20 09:20:00 70 [in_i] [facility] weight 2021-03-20 09:20:00 200.1 [lb_av] [facility] temperature 2021-03-20 09:20:00 98.2 [degF] Common pirit [facility] bmi 2021-03-20 09:20:00 28.71 kg/m2 [facility] oximetry 2021-03-20 09:20:00 99 % [facility] respiratory rate 2021-03-20 09:20:00 18 /min Comm on [facility] blood pressure 2021-03-20 09:20:00 133 mm[Hg] Common [facility] - systolic [facility] blood pressure 2021-03-20 09:20:00 86 mm[Hg] Common [facility] - diastolic [facility] height 2020-11-24 14:30:00 70 [in_i] [facility] weight 2020-11-24 14:30:00 209.6 [lb_av] [facility] bmi 2020-11-24 14:30:00 30.07 kg/m2 [facility] blood pressure 2020-11-24 14:30:00 132 mm[Hg] Common [facility] - systolic [facility] blood pressure 2020-11-24 14:30:00 81 mm[Hg] Common [facility] - diastolic [facility] height 2020-11-14 13:00:00 70 [in_i] [facility] weight 2020-11-14 13:00:00 212.7 [lb_av] [facility] temperature 2020-11-14 13:00:00 97.4 [degF] Common [facility] bmi 2020-11-14 13:00:00 30.52 kg/m2 [facility] oximetry 2020-11-14 13:00:00 98 % [facility] respiratory rate 2020-11-14 13:00:00 19 /min Comm on [facility] blood pressure 2020-11-14 13:00:00 139 mm[Hg] Common [facility] - systolic [facility] blood pressure 2020-11-14 13:00:00 83 mm[Hg] Common [facility] - diastolic [facility] height 2020-10-12 14:10:00 70 [in_i] Common [facility] weight 2020-10-12 14:10:00 206.4 [lb_av] Common [facility] temperature 2020-10-12 14:10:00 97.2 [degF] Common S pirit [facility] bmi 2020-10-12 14:10:00 29.61 kg[facility]m2 [facility] 2020-10-12 14:10:00 96 % Common [facility] respiratory rate 2020-10-12 14:10:00 18 /min Comm on [facility] blood pressure 2020-10-12 14:10:00 135 mm[Hg] Common [facility] - systolic [facility] blood pressure 2020-10-12 14:10:00 71 mm[Hg] Common [facility] - diastolic [facility] height 2020-09-14 13:20:00 70 [in_i] Common [facility] weight 2020-09-14 13:20:00 200.9 [lb_av] [facility] temperature 2020-09-14 13:20:00 98.2 [degF] Common S pirit [facility] bmi 2020-09-14 13:20:00 28.82 kg/m2 [facility] 2020-09-14 13:20:00 99 % Common [facility] respiratory rate 2020-09-14 13:20:00 16 /min Comm on [facility] blood pressure 2020-09-14 13:20:00 125 mm[Hg] Common [facility] - systolic [facility] blood pressure 2020-09-14 13:20:00 75 mm[Hg] [facility] - diastolic [facility] height 2020-08-15 14:50:00 70 [in_i] Common [facility] weight 2020-08-15 14:50:00 197.8 [lb_av] [facility] temperature 2020-08-15 14:50:00 97.4 [degF] Common [facility] bmi 2020-08-15 14:50:00 28.38 kg/m2 Common [facility] oximetry 2020-08-15 14:50:00 98 % Common [facility] respiratory rate 2020-08-15 14:50:00 17 /min Comm on [facility] blood pressure 2020-08-15 14:50:00 123 mm[Hg] Common [facility] - systolic [facility] blood pressure 2020-08-15 14:50:00 78 mm[Hg] Common [facility] - diastolic [facility] Systolic (mm Hg) 2020-06-01 19:57:00 Shin rial Mikey Diastolic (mm Hg) 2020-06-01 19:57:00 Mem orial [place] Heart Rate 2020-06-01 19:57:00 Memorial Mikey Respitory Rate 2020-06-01 19:57:00 Memori al [place] Temperature Oral (F) 2016-02-10 18:00:00 98.3 F [facility] [place] Respitory Rate 2016-02-10 18:00:00 Memori al [place] Systolic (mm Hg) 2016-02-10 18:00:00 Shin rial [place] Diastolic (mm Hg) 2016-02-10 18:00:00 Mem orial Mikey Heart Rate 2016-02-10 18:00:00 [facility] [place] Systolic (mm Hg) 2016-02-10 13:00:00 Shin rial [place] Diastolic (mm Hg) 2016-02-10 13:00:00 Mem orial [place] Respitory Rate 2016-02-10 13:00:00 Memori al [place] Heart Rate 2016-02-10 13:00:00 Memorial Mikey Temperature Oral (F) 2016-02-10 13:00:00 98.7 F [facility] Mikey Respitory Rate 2016-02-10 06:22:00 Memori al [place] Systolic (mm Hg) 2016-02-10 06:22:00 Shin rial Mikey Diastolic (mm Hg) 2016-02-10 06:22:00 Mem orial [place] Heart Rate 2016-02-10 06:22:00 [facility] [place] Temperature Oral (F) 2016-02-10 06:22:00 98.2 F [facility] Mikey BMI Calculated 2016-02-06 21:11:00 Memori al Mikey Height 2016-02-06 21:11:00 152.4 cm [facility] [place] Weight 2016-02-06 21:11:00 [facility] [place] Weight 2016-02-06 10:47:00 [facility] [place] BMI Calculated 2016-02-06 10:47:00 Memori al Mikey Height 2016-02-06 10:47:00 152.4 cm [facility] [place] Respitory Rate 2015-08-10 22:56:00 Memori al [place] Systolic (mm Hg) 2015-08-10 22:56:00 Shin rial Mikey Diastolic (mm Hg) 2015-08-10 22:56:00 Mem orial [place] Heart Rate 2015-08-10 22:56:00 [facility] [place] Temperature Oral (F) 2015-08-10 22:56:00 96.9 F [facility] [place] Temperature Oral (F) 2015-08-10 21:33:00 97.3 F [facility] [place] Respitory Rate 2015-08-10 21:33:00 Memori al Mikey Heart Rate 2015-08-10 21:33:00 Memorial Mikey Systolic (mm Hg) 2015-08-10 21:33:00 Shin rial [place] Diastolic (mm Hg) 2015-08-10 21:33:00 Mem orial Mikey Systolic (mm Hg) 2015-08-10 20:22:00 Shin rial [place] Diastolic (mm Hg) 2015-08-10 20:22:00 Mem orial Mikey Temperature Oral (F) 2015-08-10 20:22:00 97.5 F [facility] [place] Heart Rate 2015-08-10 20:22:00 [facility] Mikey Respitory Rate 2015-08-10 20:22:00 Memori al Mikey Height 2015-08-10 20:22:00 152.4 cm [facility] [place] Weight 2015-08-10 20:22:00 [facility] Mikey BMI Calculated 2015-08-10 20:22:00 Memori al Mikey Weight 2014-09-01 04:43:00 [facility] [place] BMI Calculated 2014-09-01 04:43:00 Memori al [place] Temperature Oral (F) 2014-09-01 04:43:00 98.5 F [facility] [place] Heart Rate 2014-09-01 04:43:00 [facility] [place] Respitory Rate 2014-09-01 04:43:00 Memori al Mikey Height 2014-09-01 04:43:00 154.94 cm [facility] [place] Systolic (mm Hg) 2014-09-01 04:43:00 Shin rial [place] Diastolic (mm Hg) 2014-09-01 04:43:00 Mem orial [place] Height 2013-04-01 21:10:00 152.4 cm [facility] Mikey Weight 2013-04-01 21:10:00 [facility] [place] Temperature Oral (F) 2013-04-01 21:10:00 97.0 F [facility] [place] Heart Rate 2013-04-01 21:10:00 [facility] [place] Respitory Rate 2013-04-01 21:10:00 Memori al [place] Systolic (mm Hg) 2013-04-01 21:10:00 Shin rial Mikey Diastolic (mm Hg) 2013-04-01 21:10:00 Mem orial [place] Procedures This patient has no known procedures. Plan of Care Planned Activity Planned Date Details Comments Source Future Scheduled Test 2021-11-18 00:00:00 IMM Influenza [facility] Seasonal (>/= 19 yrs) [code = IMM Influenza Seasonal (>/= 19 yrs)] Future Scheduled Test 2021-11-18 00:00:00 IMM Influenza [facility] Seasonal (>/= 19 yrs) [code = IMM Influenza Seasonal (>/= 19 yrs)] Future Scheduled Test 1972 00:00:00 COVID-19 Vaccine (#1) [facility] [code = COVID-19 Vaccine (#1)] Future Scheduled Test 1972 00:00:00 COVID-19 Vaccine (#1) [facility] [code = COVID-19 Vaccine (#1)] Encounters Start End Encounter Admission Attending Care Care Encounter Source Date/Time Date/Time Type Type Clinicians Facility Department ID 2022-01-01 Outpatient Harris, STLMLC STLMLC [id number] Common 16:25:[address] [facility] 2021-06-12 Outpatient Harris, STLMLC STLMLC [id number] Common 08:39:[address] [facility] 2021-04-04 Outpatient Harris, STLMLC STLMLC [id number] Common 09:42:[address] [facility] 2021-03-20 Outpatient Harris, STLMLC STLMLC [id number] Common 07:56:[address] [facility] 2021-03-16 Outpatient Harris, STLMLC STLMLC [id number] Common 11:00:[address] [facility] 2021-03-15 Outpatient Harris, STLMLC STLMLC [id number] Common 14:13:[address] [facility] 2021-03-15 Outpatient Harris, STLMLC STLMLC [id number] Common 14:12:32 Ramon [id number] [facility] 2021-03-15 Outpatient Harris, STLMLC STLMLC [id number] Common 13:53:19 Ramon [id number] [facility] 2021-03-15 Outpatient Harris, STLMLC STLMLC [id number] Common 13:19:14 Ramon [id number] [facility] 2021-03-15 Outpatient Harris, STLMLC STLMLC [id number] Common 13:01:24 Ramon [address] [facility] 2021-03-15 Outpatient Harris, STLMLC STLMLC [id number] Common 12:54:29 Ramon [address] [facility] 2021-03-15 Outpatient Harris, STLMLC STLMLC [id number] Common 12:43:28 Ramon [address] [facility] 2021-03-15 Outpatient Harris, STLMLC STLMLC [id number] Common 12:42:21 Ramon [address] [facility] 2021-03-15 Outpatient Harris, STLMLC STLMLC [id number] Common 12:41:34 Ramon [address] [facility] 2021-03-15 Outpatient Harris, STLMLC STLMLC [id number] Common 12:41:12 Ramon [address] [facility] 2021-03-15 Outpatient Harris, STLMLC STLMLC [id number] Common 12:31:21 Ramon [address] [facility] 2021-03-15 Outpatient Harris, STLMLC STLMLC [id number] Common 12:14:34 Ramon [address] [facility] 2021-03-15 Outpatient Harris, STLMLC STLMLC [id number] Common 12:04:53 Ramon [address] [facility] 2021-03-15 Outpatient Harris, STLMLC STLMLC [id number] Common 12:04:45 Ramon [address] [facility] 2021-03-15 Outpatient Harris, STLMLC STLMLC [id number] Common 11:32:39 Ramon [address] [facility] 2021-03-15 Outpatient Harris, STLMLC STLMLC [id number] Common 11:22:17 Ramon [address] [facility] 2021-08-07 2021-08-07 (TEL) STLMLC STLMLC [id number] Co mmon 00:00:00 00:00:[address] [facility] 2021-04-19 2021-04-19 (TEL) STLMLC STLMLC [id number] Co mmon 00:00:00 00:00:[address] [facility] 2021-04-18 2021-04-18 OFFICE STLMLC STLMLC [id number] Co mmon 00:00:00 00:00:00 VISIT EST Spir it PT LEVEL 3 [facility] 2021-03-20 2021-03-20 OFFICE STLMLC STLMLC [id number] Co mmon 00:00:00 00:00:00 VISIT EST Spir it PT LEVEL 3 [facility] 2021-03-162021-03-16 (TEL) STLMLC STLMLC [id number] Co mmon 00:00:00 00:00:[address] [facility] 2021-03-16 2021-03-16 (TEL) STLMLC STLMLC [id number] Co mmon 00:00:00 00:00:[address] [facility] 2021-02-21 2021-02-21 (TEL) STLMLC STLMLC [id number] Co mmon 00:00:00 00:00:[address] [facility] 2021-01-03 2021-01-03 (TEL) STLMLC STLMLC [id number] Co mmon 00:00:00 00:00:[address] [facility] 2020-11-29 2020-11-29 (TEL) STLMLC STLMLC [id number] Co mmon 00:00:00 00:00:[address] [facility] 2020-11-25 2020-11-25 (TEL) STLMLC STLMLC [id number] Co mmon 00:00:00 00:00:[address] [facility] 2020-11-24 2020-11-24 OFFICE STLMLC STLMLC [id number] Co mmon 00:00:00 00:00:[address] 2020-11-22 2020-11-22 Outpatient PRIV PRIV [id number] [facility] 00:00:00 00:00:00 [id number] [facility] 2020-11-16 2020-11-16 (TEL) STLMLC STLMLC [id number] Co mmon 00:00:00 00:00:[address] [facility] 2020-11-14 2020-11-14 OFFICE STLMLC STLMLC [id number] Co mmon 00:00:00 00:00:[address] 2020-11-14 2020-11-14 (TEL) STLMLC STLMLC [id number] Co mmon 00:00:00 00:00:[address] [facility] 2020-10-12 2020-10-12 OFFICE STLMLC STLMLC [id number] Co mmon 00:00:00 00:00:00 VISIT Spirit ESTAB PT - CHI LEVEL 4 [facility] 2020-09-14 2020-09-14 OFFICE STLMLC STLMLC [id number] Co mmon 00:00:00 00:00:00 VISIT Spirit ESTAB PT - CHI LEVEL 4 [facility] 2020-08-15 2020-08-15 OFFICE STLMLC STLMLC [id number] Co mmon 00:00:00 00:00:00 VISIT Spirit ESTAB PT - CHI LEVEL 4 [facility] 2020-08-02 2020-08-02 Outpatient STLMLC STLMLC [id number] Common 00:00:00 00:00:[address] [facility] 2020-08-01 2020-08-01 Outpatient STLMLC STLMLC [id number] Common 00:00:00 00:00:[address] [facility] 2020-06-27 2020-06-27 Outpatient STLMLC STLMLC [id number] Common 00:00:00 00:00:[address] [facility] 2020-06-08 2020-06-08 Outpatient STLMLC STLMLC [id number] Common 00:00:00 00:00:[address] [facility] 2020-06-01 2020-06-02 Outpatient nullFlavo MNA [id number] Memoria 20:15:00 04:59:59 r Neurology 00 l Samantha [place] 2020-06-01 2020-06-02 Outpatient nullFlavo MNA [id number] Memoria 20:15:00 04:59:59 r Neurology 00 l Samantha [place] 2020-06-02 2020-06-02 Outpatient STLMLC STLMLC [id number] Common 00:00:00 00:00:[address] [facility] 2020-06-01 2020-06-01 Outpatient MIGUEL Gudino [id number] 15:15:00 23:59:59 Hugh Richi Oconnell 2020-06-01 2020-06-01 Outpatient DONNELL JACOBO [id number] Memoria 15:15:00 15:15:00 00 oscar Jensen 2020-05-09 2020-05-09 Outpatient STLMLC STLMLC [id number] Common 00:00:00 00:00:[address] [facility] 2020-05-04 2020-05-04 Outpatient STLMLC STLMLC [id number] Common 00:00:00 00:00:[address] [facility] 2020-05-04 2020-05-04 Outpatient STLMLC STLMLC [id number] Common 00:00:00 00:00:[address] [facility] 2020-04-08 2020-04-08 Outpatient STLMLC STLMLC [id number] Common 00:00:00 00:00:[address] [facility] 2020-02-08 2020-02-08 Outpatient STLMLC STLMLC [id number] Common 00:00:00 00:00:[address] [facility] 2019-12-31 2019-12-31 Outpatient STLMLC STLMLC [id number] Common 00:00:00 00:00:[address] [facility] 2019-11-11 2019-11-11 Outpatient STLMLC STLMLC [id number] Common 00:00:00 00:00:[address] [facility] 2019-11-11 2019-11-11 Outpatient STLMLC STLMLC [id number] Common 00:00:00 00:00:[address] [facility] 2019-10-28 2019-10-28 [facility] [id number] Common 13:20:00 13:20:00 t [employer] [address] [facility] 2019-08-07 2019-08-07 [facility] [id number] Common 10:43:00 10:43:00 [facility] it Road [facility] 2019-07-06 2019-07-06 [facility] [id number] Common 14:00:00 14:00:00 t [employer] [address] [facility] 2016-02-06 2016-02-10 Inpatient [facility] [id number] Memoria 10:32:00 21:10:00 isadora Jensen 10 l [facility] 2016-02-06 2016-02-10 Inpatient [facility] [id number] Memoria 10:32:00 21:10:00 r Mikey 10 l [facility] 2016-02-06 2016-02-10 Outpatient Jaden, [facility] [id number] 04:32:00 15:10:00 Chelita Monreal 2015-08-10 2015-08-10 EC [facility]Fl[facility] [id number] Memoria 20:16:00 23:08:00 Emergency r Mikey 09 l [facility] 2015-08-10 2015-08-10 EC [facility]Fl[facility] [id number] Memoria 20:16:00 23:08:00 Emergency r Mikey 09 [facility] 2015-08-10 2015-08-10 Outpatient Liz, [facility] [id number] 15:16:00 18:08:00 Luke Marimar [facility] 2014-09-01 2014-09-01 EC nullFlavo [place] [id number] Memoria 04:03:00 05:10:00 Emergency r Convenient 08 l [facility] 2014-09-01 2014-09-01 EC nullFlavo [place] [id number] Memoria 04:03:00 05:10:00 Emergency r Convenient 08 l [facility] 2014-08-31 2014-09-01 Outpatient Robert Chao [facility] [id number] 23:03:00 00:10:00 Camron 08 2013-09-21 2013-09-21 EC [facility] [id number] Memoria 04:13:00 05:19:00 Emergency r Mikey 07 l [facility] 2013-09-21 2013-09-21 EC [facility]Fl[facility] [id number] Memoria 04:13:00 05:19:00 Emergency r Mikey 07 [facility] 2013-09-20 2013-09-21 Outpatient Raya, 2.16.840. 2.16.840.1. 3 [id number] 23:13:00 00:19:00 Lazaro [id number]. [id number] 07 Cody 3.615.0.1 5.0.601 53 4174-02-12 2013-04-01 Emergency nullFlavo Not Sent [id number] Memoria 15:05:00 16:57:00 r 06 l Mikey 2013-04-01 2013-04-01 Emergency nullFlavo Not Sent [id number] Memoria 15:05:00 16:57:00 r 06 l Mikey 2013-04-01 2013-04-01 Outpatient 2.16.840. 2.16.840.1. 3 [id number] Memoria 15:05:00 16:57:00 [id number]. [id number] l 3.615.0.1 5.0.100 Masood n 00 [facility] Results Test Description Test Time Test Comments Results Result Comments Source HEMOGLOBIN A1C 2020-11-14 00:00:00 Test Item Value Reference Range Interpretation Comme nts A1C (test code = 4548-4) 8.5 HEMOGLOBIN [id number] 00:00:00 Test Item Value Reference Range Interpretation Comments A1C (test code = 4548-4) 9.5 HEMOGLOBIN [id number] 00:00:00 Test Item Value Reference Range Interpretation Comments A1C (test code = 4548-4) 11.0 UA RFLX MICR CULT IF [id number] 16:41:00 Test Item Value Reference Range Interpretation [...] NG/ML are obtained. - CT HEAD/BRAIN W/O [id number] 15:20:00 FAX: Colleen Mckenzie MD [phone] Steward: St: REG Name: MICHELLE FISHER [facility] : 1970 Age/S: 48/M [address] Unit: [id number] Loc: [place] [address] Phys: Colleen Mckenzie MD Acct: [id number] Dis Date: Status: REG ER PHONE #: [phone] Exam Date: 06/05/2018 1510 FAX #: [phone] Reason: june, h/o brain ca EXAMS: CPT CODE: [id number] CT HEAD/BRAIN W/O CONT 20656 Location: T18 CT head, 06/05/18 COMPARISON EXAMS:None [...] the left occipital region. Area of focal encephalomalaciais seen in this area without space-occupying process [...] Signed Report (CONTINUED) FAX: Colleen Mckenzie MD [phone] Steward: St: REG Name: MICHELLE FISHER [facility] : 1970 Age/S: 48/M [address] Unit: [id number] Loc: [place] [address] Phys: Colleen Mckenzie MD Acct: [id number] Dis Date: Status: REG ER PHONE #: [phone] Exam Date: 06/05/2018 1510 FAX #: [phone] Reason: june, h/o brain ca EXAMS: CPT CODE: [id number] CT HEAD/BRAIN W/O CONT 53287 (Continued) at 1520 Reported and signed by: Janeen Chacon MD CC: Colleen Mckenzie MD Technologist: HAYDEE KTAZ Dt/Tm:06/05/2018 (1520) t.[id number] Orig Print D/T: S: 06/05/2018 (1523 PAGE 2 Signed ReportBASIC METABOLIC [id number] 15:18:00 Test Item Value Reference Range Interpretation [...] 9.3 mg/dL 8.4-10.2 N CA) LIVER FUNCTION [id number] 15:18:00 Test Item Value Reference Range Interpretation [...] U/L 38-126 H (test code = ALKP) [id number] 15:18:00 Test Item Value Reference Range Interpretation Comments LIPASE (test code = LIP) 133 U/L 23-300 N BASIC METABOLIC [id number] 15:16:00 Test Item Value Reference Range Interpretation [...] mi ssing the Laboratory cannot compute an teivn mation of the glomerul ar filtration rate . CREATININE (test code 1.8 mg/dL 0.7-1.3 H = CREAT) CALCIUM (test code = 9.3 mg/dL 8.4-10.2 N CA) LIVER FUNCTION [id number] 15:16:00 Test Item Value Reference Range Interpretation [...] U/L 38-126 H (test code = ALKP) [id number] 15:16:00 Test Item Value Reference Range Interpretation Comments LIPASE (test code = LIP) U/L 23-300 PROTHROMBIN [id number] 15:07:00 Test Item Value Reference Range Interpretation [...] and Drug Administrationr ecommen dations. THROMBOPLASTIN TIME [id number] 15:07:00 Test Item Value Reference Range Interpretation Comments THROMBOPLASTIN TIME 25.6 SECONDS 23.4-37.0 N Therape utic Range PARTIAL (test code = for Hep ham[place] PTT) EFFECTIVE Heparin IU/mL a PTT Seconds0.3 64.3 0.7 88.8 CBC W/AUTO [id number] 15:02:00 Test Item Value Reference Range Interpretation [...] 0.03 x10 3/uL 0.0-0.1 N LACTIC ACID [id number] 15:01:00 Test Item Value Reference Range Interpretation Comments LACTIC ACID POC (test code = 1.17 mmol/L 0.7-2.0 N LACTP) TROPONIN I [id number] 15:01:00 Test Item Value Reference Range Interpretation [...] methodology is used. - XR CHEST 1 [id number] 14:53:00 Steward: St: REG -- Name: FISHERMICHELLE [facility] : 1970 Age/S: 48/M [address] Unit #: [id number] Loc: [place] [address] Phys: Isaias Gruber Acct: [id number] Dis Date: Status: REG ER PHONE #: [phone] Exam Date: 06/05/2018 1440 FAX #: [phone] Reason: CODE SEPSIS EXAMS: CPT CODE: [id number] XR CHEST 1 V 88883 EXAM: Portable chest x-ray, one view INDICATION: CODE SEPSIS LOCATION CODE:C3 COMPARISON: None TECHNIQUE: Single Portable AP upright view of the chest DISCUSSION: Mild patchy density involving the right lung base suggest atelectasis and or infiltrative process. Heart and mediastinal contours are unremarkable. No pneumothorax or pleural vision seen. Osseous structures unremarkable. IMPRESSION: 1. Right basilar atelectasis and or early infiltrate at 2971 Reported and signed by: Rodolfo Kim M.D. CC: Technologist: SOHAN CERNA RT (R) Trnscrd Date/Time/By: 06/05/2018 (6168) : By: Lizet PAGE 1 Signed Report Steward: St: REG -- Name: MICHELLE FISHER [facility] : 1970 Age/S: 48/M [address] Unit #: [id number] Loc: [place] [address] Phys: Isaias Gruber Acct: [id number] Dis Date: Status: REG ER PHONE #: [phone] Exam Date: 06/05/2018 1440 FAX #: [phone] Reason: CODE SEPSIS EXAMS: CPT CODE: [id number] XR CHEST 1 V 01923 (Continued) Orig Print D/T: S: 06/05/2018 (3672) PAGE 2 Signed ReportCHEM [id number] 11:06:00 Test Item Value Reference Range Interpretation Comments Phosphorus (test code = Phosphorus) 3.3 2.5-4.5 [facility] [id number] 11:06:00 Test Item Value Reference Range Interpretation Comments Magnesium Lvl (test code = Magnesium 1.8 1.8-2.4 Lvl) [facility] DallasYbcytzbHQTTJGVWTAVI3340-36-75 11:06:00 Test Item Value Reference Range Interpretation Comments CO2 (test code = CO2) 27 24-32 [facility]dog[facility]vDUJBJFWSSNJX3632-26-70 11:06:00 Test Item Value Reference Range Interpretation Comments Calcium Lvl (test code = Calcium Lvl) 8.7 8.5-10.5 [facility]IgckvjbDAKCNMNHODPC9783-19-69 11:06:00 Test Item Value Reference Range Interpretation Comments AGAP (test code = AGAP) 10.8 10.0-20.0 [facility] HospitalZduynkiCFRMYDZWFICS5042-86-71 11:06:00 Test Item Value Reference Range Interpretation Comments Chloride Lvl (test code = Chloride Lvl) 104 95-109 [facility] HospitalPfdicjpRJSYAIWHWRIV2911-71-85 11:06:00 Test Item Value Reference Range Interpretation Comments eGFR (test code = eGFR) 56 [facility] HospitalJjixpooBQFFHKWHARMX6549-19-31 11:06:00 Test Item Value Reference Range Interpretation Comments Potassium Lvl (test code = Potassium 3.8 3.5-5.1 Lvl) [facility] HospitalLxewoulEEOSUEZXFPBB4550-38-29 11:06:00 Test Item Value Reference Range Interpretation Comments Sodium Lvl (test code = Sodium Lvl) 138 135-145 [facility] HospitalXuqwepjFWKQVZTILJMS2218-50-61 11:06:00 Test Item Value Reference Range Interpretation Comments Creatinine Lvl (test code = Creatinine 1.51 0.50-1.40 Lvl) [facility] HospitalGmqdxlwJYFNMXWYXFZK9732-76-69 11:06:00 Test Item Value Reference Range Interpretation Comments BUN (test code = BUN) 22 7-22 [facility] HospitalKtoegrdFNNXNVDIDGNK1340-05-07 11:06:00 Test Item Value Reference Range Interpretation Comments Glucose Lvl (test code = Glucose Lvl) 130 70-99 [facility] CenterZssbctmKIBJINHWZC8766-91-18 11:06:00 Test Item Value Reference Range Interpretation Comments WBC (test code = WBC) 8.9 3.7-10.4 [facility] CenterEdcyzxqKWNDBZFXDU3935-12-14 11:06:00 Test Item Value Reference Range Interpretation Comments RBC (test code = RBC) 4.85 4.70-6.10 [facility] CenterOjarmnoSCOPWFSFNX4795-15-89 11:06:00 Test Item Value Reference Range Interpretation Comments MCV (test code = MCV) 87.1 80.0-94.0 [facility] CenterLxhehxtIMOADPPDHW2445-99-88 11:06:00 Test Item Value Reference Range Interpretation Comments MCHC (test code = MCHC) 32.7 32.0-36.0 [facility] CenterXpepxpnHBNNRSKMMS0631-60-57 11:06:00 Test Item Value Reference Range Interpretation Comments Platelet (test code = Platelet) 251 133-450 [facility]2016-12-23 11:06:00 Test Item Value Reference Range Interpretation Comments Phosphorus (test code = Phosphorus) 3.3 2.5-4.5 [facility]2016-12-23 11:06:00 Test Item Value Reference Range Interpretation Comments Magnesium Lvl (test code = Magnesium 1.8 1.8-2.4 Lvl) [facility] HospitalOynlxnaERXZVDRITEUY4827-16-07 11:06:00 Test Item Value Reference Range Interpretation Comments CO2 (test code = CO2) 27 24-32 [facility] HospitalHfnohhkIQXCISXYZGTY8209-97-67 11:06:00 Test Item Value Reference Range Interpretation Comments Calcium Lvl (test code = Calcium Lvl) 8.7 8.5-10.5 [facility] HospitalAtmxqkdRUGIFBAPMOID3800-40-58 11:06:00 Test Item Value Reference Range Interpretation Comments AGAP (test code = AGAP) 10.8 10.0-20.0 [facility] HospitalVcfbnkuRCPOCBVGETCS8864-97-03 11:06:00 Test Item Value Reference Range Interpretation Comments Chloride Lvl (test code = Chloride Lvl) 104 95-109 [facility] HospitalGbqjqglSNOGDURXQQJX8143-29-89 11:06:00 Test Item Value Reference Range Interpretation Comments eGFR (test code = eGFR) 56 [facility] CenterKiddcvcSUINOQVNJP7067-25-49 11:06:00 Test Item Value Reference Range Interpretation Comments RDW (test code = RDW) 13.1 11.5-14.5 [facility] HospitalQqmugrwONWXYHDVLXIJ3146-93-41 11:06:00 Test Item Value Reference Range Interpretation Comments Potassium Lvl (test code = Potassium 3.8 3.5-5.1 Lvl) [facility] HospitalIihaxuqXFEZMRGCKDKX8361-18-59 11:06:00 Test Item Value Reference Range Interpretation Comments Sodium Lvl (test code = Sodium Lvl) 138 135-145 [facility] HospitalSpqcokiGDPJCWMANNPN9652-70-87 11:06:00 Test Item Value Reference Range Interpretation Comments Creatinine Lvl (test code = Creatinine 1.51 0.50-1.40 Lvl) [facility] HospitalDsxjbhiISRJIGINLAJO0577-38-96 11:06:00 Test Item Value Reference Range Interpretation Comments BUN (test code = BUN) 22 7-22 [facility] DallasHxoqdyxCXLTIIHTZDBY3328-83-20 11:06:00 Test Item Value Reference Range Interpretation Comments Glucose Lvl (test code = Glucose Lvl) 130 70-99 [facility] HospitalFpokopgGYLFOXUTWY4403-37-50 11:06:00 Test Item Value Reference Range Interpretation Comments WBC (test code = WBC) 8.9 3.7-10.4 [facility] CenterEklztdlFPYESWWOLB5219-54-15 11:06:00 Test Item Value Reference Range Interpretation Comments RBC (test code = RBC) 4.85 4.70-6.10 [facility] CenterZkfbixwNXXGWQAHBL4323-90-92 11:06:00 Test Item Value Reference Range Interpretation Comments MCV (test code = MCV) 87.1 80.0-94.0 [facility] CenterSzoengzRTORMVFPKB6914-56-22 11:06:00 Test Item Value Reference Range Interpretation Comments MCHC (test code = MCHC) 32.7 32.0-36.0 [facility] CenterFrdsxhtBPFKMZKICL7401-00-80 11:06:00 Test Item Value Reference Range Interpretation Comments Platelet (test code = Platelet) 251 133-450 [facility] CenterLissyooTAMHHTYEAL7998-03-94 11:06:00 Test Item Value Reference Range Interpretation Comments Hct (test code = Hct) 42.2 42.0-54.0 [facility] CenterMqhoxsvYKMPFTNFKT3044-78-72 11:06:00 Test Item Value Reference Range Interpretation Comments RDW (test code = RDW) 13.1 11.5-14.5 [facility] CenterWtkxduzPIGVMFRORL0759-37-04 11:06:00 Test Item Value Reference Range Interpretation Comments Hct (test code = Hct) 42.2 42.0-54.0 [facility] CenterWksegiqQZYQISCPDD7102-74-36 11:06:00 Test Item Value Reference Range Interpretation Comments Hgb (test code = Hgb) 13.8 14.0-18.0 [facility] CenterRjsofyhORZGAMHPCU8873-03-75 11:06:00 Test Item Value Reference Range Interpretation Comments MPV (test code = MPV) 7.1 7.4-10.4 [facility] CenterWbchsthOZUJTKZAZD6054-53-37 11:06:00 Test Item Value Reference Range Interpretation Comments MCH (test code = MCH) 28.5 pg 27.0-31.0 [place] 536266-12-23 11:06:00 Test Item Value Reference Range Interpretation Comments Monocytes (test code = Monocytes) 5.9 2.0-12.0 [facility] CenterKzisvwgHIJESEAMHD1394-60-52 11:06:00 Test Item Value Reference Range Interpretation Comments Lymphocytes (test code = Lymphocytes) 41.2 20.0-40.0 [facility] CenterBpssmpfDMROEAPSOH6603-59-95 11:06:00 Test Item Value Reference Range Interpretation Comments Basophils (test code = 0.5 See_Comment [Aut omated message] The Basophils) system which ge nerated this result tra nsmitted reference range : <=1.0. The reference r davey was not used to int erpret this result as normal/abnormal . [facility] CenterHkugcpdLVAETZGDLE9851-50-54 11:06:00 Test Item Value Reference Range Interpretation Comments Eosinophils (test code = 2.1 See_Comment [A utomated message] The Eosinophils) system which ge nerated this result tra nsmitted reference range : <=4.0. The reference r davey was not used to int erpret this result as normal/abnormal . [facility] CenterTxbzgyiJJXSNNANJN5466-00-59 11:06:00 Test Item Value Reference Range Interpretation Comments Segs-Bands # (test code = Segs-Bands #) 4.5 1.5-8.1 [facility] CenterTbqdrhyPXWXOUXTLN1323-44-36 11:06:00 Test Item Value Reference Range Interpretation Comments Hgb (test code = Hgb) 13.8 14.0-18.0 [facility] CenterWfrjkqyHIEHPRTIBJ0436-27-54 11:06:00 Test Item Value Reference Range Interpretation Comments Lymphocytes # (test code = Lymphocytes 3.7 1.0-5.5 #) [facility] CenterWnqzajbVPXBCTIBIX0331-86-15 11:06:00 Test Item Value Reference Range Interpretation Comments Eosinophils # (test code 0.2 See_Comment [A utomated message] The = Eosinophils #) system whic h generated this result tra nsmitted reference range : <=0.5. The reference r davey was not used to int erpret this result as normal/abnormal . [facility] CenterPczrsdzXUAFYVFCWS2911-77-41 11:06:00 Test Item Value Reference Range Interpretation Comments Monocytes # (test code 0.5 See_Comment [Aut omated message] The = Monocytes #) system which generated this result tra nsmitted reference range : <=0.8. The reference r davey was not used to int erpret this result as normal/abnormal . [facility] CenterMbchpdaWRFLOZYMXI9188-99-41 11:06:00 Test Item Value Reference Range Interpretation Comments Segs (test code = Segs) 50.3 45.0-75.0 [facility] CenterBbjkkgfDOYFWLSOSA6642-19-13 11:06:00 Test Item Value Reference Range Interpretation Comments MPV (test code = MPV) 7.1 7.4-10.4 [facility] CenterLkimbrqOINNZHVHKC1420-37-63 11:06:00 Test Item Value Reference Range Interpretation Comments MCH (test code = MCH) 28.5 pg 27.0-31.0 [facility] CenterLtkmtiuGJEFGEDLBV6495-62-15 11:06:00 Test Item Value Reference Range Interpretation Comments Monocytes (test code = Monocytes) 5.9 2.0-12.0 [facility] CenterVpgpnowATTZYMLMKH8737-03-16 11:06:00 Test Item Value Reference Range Interpretation Comments Lymphocytes (test code = Lymphocytes) 41.2 20.0-40.0 [facility] CenterKyfdbanLUJISKKVPH2640-97-27 11:06:00 Test Item Value Reference Range Interpretation Comments Basophils (test code = 0.5 See_Comment [Aut omated message] The Basophils) system which ge nerated this result tra nsmitted reference range : <=1.0. The reference r davey was not used to int erpret this result as normal/abnormal . [facility] CenterQowqbbdYSGLDSMSMC2810-42-65 11:06:00 Test Item Value Reference Range Interpretation Comments Eosinophils (test code = 2.1 See_Comment [A utomated message] The Eosinophils) system which ge nerated this result tra nsmitted reference range : <=4.0. The reference r davey was not used to int erpret this result as normal/abnormal . [facility] CenterKowfhlwHGNNSWSNUM4986-19-64 11:06:00 Test Item Value Reference Range Interpretation Comments Segs-Bands # (test code = Segs-Bands #) 4.5 1.5-8.1 [facility] CenterHtlayeuEOVEFAELYS2391-18-24 11:06:00 Test Item Value Reference Range Interpretation Comments Lymphocytes # (test code = Lymphocytes 3.7 1.0-5.5 #) [place] 536266-12-23 11:06:00 Test Item Value Reference Range Interpretation Comments Eosinophils # (test code 0.2 See_Comment [A utomated message] The = Eosinophils #) system whic h generated this result tra nsmitted reference range : <=0.5. The reference r davey was not used to int erpret this result as normal/abnormal . [facility] CenterVmhaartAGQHJCKDCZ6400-55-18 11:06:00 Test Item Value Reference Range Interpretation Comments Monocytes # (test code 0.5 See_Comment [Aut omated message] The = Monocytes #) system which generated this result tra nsmitted reference range : <=0.8. The reference r davey was not used to int erpret this result as normal/abnormal . [facility] CenterJxhipirKIDXHZTZGD5607-58-27 11:06:00 Test Item Value Reference Range Interpretation Comments Segs (test code = Segs) 50.3 45.0-75.0 [facility]CvicopyLXKOZOAIMTEO3191-31-21 16:49:00 Test Item Value Reference Range Interpretation Comments Sodium Lvl (test code = Sodium Lvl) 139 135-145 [facility] HospitalDrnijayFIFXWYGGMGCL3283-27-78 16:49:00 Test Item Value Reference Range Interpretation Comments Potassium Lvl (test code = Potassium 4.0 3.5-5.1 Lvl) [facility] HospitalWqbhtogHCZNUQJUDQTI4777-09-88 16:49:00 Test Item Value Reference Range Interpretation Comments CO2 (test code = CO2) 29 24-32 [facility] HospitalUewvnbmHZGAMQXBHYXL2738-15-71 16:49:00 Test Item Value Reference Range Interpretation Comments Chloride Lvl (test code = Chloride Lvl) 103 95-109 [facility] HospitalEmiptmaWXRTEQGVOCTH5981-70-75 16:49:00 Test Item Value Reference Range Interpretation Comments Calcium Lvl (test code = Calcium Lvl) 8.9 8.5-10.5 [facility] HospitalYcrfmqqPZVZUSSTNJFH1247-73-31 16:49:00 Test Item Value Reference Range Interpretation Comments Creatinine Lvl (test code = Creatinine 1.54 0.50-1.40 Lvl) [facility] HospitalJwwzqriJSJMFAFMOQLB1518-13-90 16:49:00 Test Item Value Reference Range Interpretation Comments BUN (test code = BUN) 24 7-22 [facility] HospitalAddpgpdQBRWNLXCSCNG1542-21-08 16:49:00 Test Item Value Reference Range Interpretation Comments Glucose Lvl (test code = Glucose Lvl) 229 70-99 [facility] CenterSubqosqLKFGMPBCAP1329-39-78 16:49:00 Test Item Value Reference Range Interpretation Comments MCV (test code = MCV) 85.8 80.0-94.0 [place] [address]-12-22 16:49:00 Test Item Value Reference Range Interpretation Comments Hgb (test code = Hgb) 12.8 14.0-18.0 [facility] CenterBydlognCCNPEIDUIO3806-44-53 16:49:00 Test Item Value Reference Range Interpretation Comments Hct (test code = Hct) 38.8 42.0-54.0 [facility] CenterKgtmbaaANWICMVIES0414-49-45 16:49:00 Test Item Value Reference Range Interpretation Comments RBC (test code = RBC) 4.52 4.70-6.10 [place] [id number] 16:49:00 Test Item Value Reference Range Interpretation Comments WBC (test code = WBC) 10.8 3.7-10.4 [facility] CenterSlghvcnEQETIZJBKI2112-60-87 16:49:00 Test Item Value Reference Range Interpretation Comments Platelet (test code = Platelet) 350 133-450 [facility] CenterRwwfuznAGOPEKTYZK4018-21-74 16:49:00 Test Item Value Reference Range Interpretation Comments MPV (test code = MPV) 6.5 7.4-10.4 [facility] CenterCtivtgpXCAGNEFGDS6455-58-31 16:49:00 Test Item Value Reference Range Interpretation Comments RDW (test code = RDW) 13.3 11.5-14.5 [facility] CenterCltcakmDNDWPBTGKO5723-40-80 16:49:00 Test Item Value Reference Range Interpretation Comments MCH (test code = MCH) 28.2 pg 27.0-31.0 [facility] CenterMesajvnFQIMIXWQCX2519-54-84 16:49:00 Test Item Value Reference Range Interpretation Comments MCHC (test code = MCHC) 32.9 32.0-36.0 [facility] CenterWwhwfgeXDWPQZZNOJ2660-44-04 16:49:00 Test Item Value Reference Range Interpretation Comments Basophils # (test code 0.1 See_Comment [Aut omated message] The = Basophils #) system which generated this result tra nsmitted reference range : <=0.2. The reference r davey was not used to int erpret this result as normal/abnormal . [facility] CenterHyrwmhnAJKNDMOYOH5479-34-44 16:49:00 Test Item Value Reference Range Interpretation Comments Eosinophils # (test code 0.1 See_Comment [A utomated message] The = Eosinophils #) system whic h generated this result tra nsmitted reference range : <=0.5. The reference r davey was not used to int erpret this result as normal/abnormal . [facility] CenterGfkwickMFYHMCWYPN3384-91-18 16:49:00 Test Item Value Reference Range Interpretation Comments Monocytes # (test code 0.8 See_Comment [Aut omated message] The = Monocytes #) system which generated this result tra nsmitted reference range : <=0.8. The reference r davey was not used to int erpret this result as normal/abnormal . [facility] CenterEvwqucbAKSBFOGMQZ9785-42-81 16:49:00 Test Item Value Reference Range Interpretation Comments Lymphocytes # (test code = Lymphocytes 3.1 1.0-5.5 #) [facility] CenterQoyiwfaLIAEPMKUGP8379-62-31 16:49:00 Test Item Value Reference Range Interpretation Comments Segs-Bands # (test code = Segs-Bands #) 6.8 1.5-8.1 [facility] CenterDagdjbqKFLUAQNDGS3135-78-56 16:49:00 Test Item Value Reference Range Interpretation Comments Basophils (test code = 0.6 See_Comment [Aut omated message] The Basophils) system which ge nerated this result tra nsmitted reference range : <=1.0. The reference r davey was not used to int erpret this result as normal/abnormal . [facility] CenterNhxgdupKCOOLKTETD7110-97-35 16:49:00 Test Item Value Reference Range Interpretation Comments Eosinophils (test code = 0.6 See_Comment [A utomated message] The Eosinophils) system which ge nerated this result tra nsmitted reference range : <=4.0. The reference r davey was not used to int erpret this result as normal/abnormal . [facility] CenterXdndvgoMWXWBDKVBH5808-85-57 16:49:00 Test Item Value Reference Range Interpretation Comments Monocytes (test code = Monocytes) 7.7 2.0-12.0 [facility] CenterNzvvdccMMNASQMLZN1147-56-88 16:49:00 Test Item Value Reference Range Interpretation Comments Lymphocytes (test code = Lymphocytes) 28.6 20.0-40.0 [facility] CenterBpdahjnMEAKQEVZUO9862-74-93 16:49:00 Test Item Value Reference Range Interpretation Comments Segs (test code = Segs) 62.5 45.0-75.0 [facility]2016-12-22 16:49:00 Test Item Value Reference Range Interpretation Comments Lactic Acid Lvl (test code = Lactic 1.4 0.5-2.2 Acid Lvl) [facility] HospitalMgdwlnlDTXTCJWKOUAF8376-79-68 16:49:00 Test Item Value Reference Range Interpretation Comments AGAP (test code = AGAP) 11.0 10.0-20.0 [facility] HospitalAwvvlhkOCTTOGGCHBAA9706-75-32 16:49:00 Test Item Value Reference Range Interpretation Comments eGFR (test code = eGFR) 54 [facility] HospitalKlbfsgoSOCAHCNCSFTA7423-29-08 16:49:00 Test Item Value Reference Range Interpretation Comments Sodium Lvl (test code = Sodium Lvl) 139 135-145 [facility] HospitalIbknaylNBAOPLPKAGZH4217-43-65 16:49:00 Test Item Value Reference Range Interpretation Comments Potassium Lvl (test code = Potassium 4.0 3.5-5.1 Lvl) [facility] HospitalMqcsvpyZDFDENQCOULS9182-08-91 16:49:00 Test Item Value Reference Range Interpretation Comments CO2 (test code = CO2) 29 24-32 [facility] HospitalPdpdwvgOYXCWCWBAZKC8012-74-17 16:49:00 Test Item Value Reference Range Interpretation Comments Chloride Lvl (test code = Chloride Lvl) 103 95-109 [facility] HospitalSqkqhmhAGPIGLJBFVQH3116-44-52 16:49:00 Test Item Value Reference Range Interpretation Comments Calcium Lvl (test code = Calcium Lvl) 8.9 8.5-10.5 [facility] HospitalVmrfmicEHNWZJUOHHOD4375-96-75 16:49:00 Test Item Value Reference Range Interpretation Comments Creatinine Lvl (test code = Creatinine 1.54 0.50-1.40 Lvl) [facility] HospitalHazsqlbVLOUCTPBDQRB6066-03-38 16:49:00 Test Item Value Reference Range Interpretation Comments BUN (test code = BUN) 24 7-22 [facility] HospitalKoecnsnUQTJWDOTDUTB3995-03-56 16:49:00 Test Item Value Reference Range Interpretation Comments Glucose Lvl (test code = Glucose Lvl) 229 70-99 [facility] CenterZfikipfCZZDTVOOON9209-18-21 16:49:00 Test Item Value Reference Range Interpretation Comments MCV (test code = MCV) 85.8 80.0-94.0 [facility] CenterMelqntrSYRBHDWXZH7630-79-16 16:49:00 Test Item Value Reference Range Interpretation Comments Hgb (test code = Hgb) 12.8 14.0-18.0 [facility] CenterOnhkswtKSLPENIYQA1243-17-58 16:49:00 Test Item Value Reference Range Interpretation Comments Hct (test code = Hct) 38.8 42.0-54.0 [facility] CenterEgblonrJXUWDZQKUD1670-93-73 16:49:00 Test Item Value Reference Range Interpretation Comments RBC (test code = RBC) 4.52 4.70-6.10 [facility] CenterTwtsdoiAOGTSNKJOM0309-00-33 16:49:00 Test Item Value Reference Range Interpretation Comments WBC (test code = WBC) 10.8 3.7-10.4 [facility] CenterQrpkfflAPNKGDPLEX7533-48-54 16:49:00 Test Item Value Reference Range Interpretation Comments Platelet (test code = Platelet) 350 133-450 [facility] CenterShmqjmjEXDEAILWBY1833-85-18 16:49:00 Test Item Value Reference Range Interpretation Comments MPV (test code = MPV) 6.5 7.4-10.4 [facility] CenterRufccnwKGLFMVBJLF0062-80-17 16:49:00 Test Item Value Reference Range Interpretation Comments RDW (test code = RDW) 13.3 11.5-14.5 [facility] CenterQkmzktpVCIPQOFNSO8669-02-01 16:49:00 Test Item Value Reference Range Interpretation Comments MCH (test code = MCH) 28.2 pg 27.0-31.0 [facility] CenterOvcmwuaXTHESQIGVG6158-14-51 16:49:00 Test Item Value Reference Range Interpretation Comments MCHC (test code = MCHC) 32.9 32.0-36.0 [facility] CenterQcjshglHUJMTHMNNF3859-57-55 16:49:00 Test Item Value Reference Range Interpretation Comments Basophils # (test code 0.1 See_Comment [Aut omated message] The = Basophils #) system which generated this result tra nsmitted reference range : <=0.2. The reference r davey was not used to int erpret this result as normal/abnormal . [facility] CenterSmiuktjTECYMQCCSL1682-30-66 16:49:00 Test Item Value Reference Range Interpretation Comments Eosinophils # (test code 0.1 See_Comment [A utomated message] The = Eosinophils #) system [facility] h generated this result tra nsmitted reference range : <=0.5. The reference r davey was not used to int erpret this result as normal/abnormal . [facility] CenterJuwbhblMWORENLSXG0019-39-64 16:49:00 Test Item Value Reference Range Interpretation Comments Monocytes # (test code 0.8 See_Comment [Aut omated message] The = Monocytes #) system which generated this result tra nsmitted reference range : <=0.8. The reference r davey was not used to int erpret this result as normal/abnormal . [facility] CenterZqukthqSYOADVNJGB0708-22-43 16:49:00 Test Item Value Reference Range Interpretation Comments Lymphocytes # (test code = Lymphocytes 3.1 1.0-5.5 #) [facility] CenterUwswjckQLPNHJDXVW3402-54-81 16:49:00 Test Item Value Reference Range Interpretation Comments Segs-Bands # (test code = Segs-Bands #) 6.8 1.5-8.1 [facility] CenterRtwqdqgIPYNZIQAXY1973-47-23 16:49:00 Test Item Value Reference Range Interpretation Comments Basophils (test code = 0.6 See_Comment [Aut omated message] The Basophils) system which ge nerated this result tra nsmitted reference range : <=1.0. The reference r davey was not used to int erpret this result as normal/abnormal . [facility] CenterUwvafkuNATQZGILBU8293-43-55 16:49:00 Test Item Value Reference Range Interpretation Comments Eosinophils (test code = 0.6 See_Comment [A utomated message] The Eosinophils) system which ge nerated this result tra nsmitted reference range : <=4.0. The reference r davey was not used to int erpret this result as normal/abnormal . [facility] CenterImvtscmUBGLTSIVFB8660-43-22 16:49:00 Test Item Value Reference Range Interpretation Comments Monocytes (test code = Monocytes) 7.7 2.0-12.0 [facility] CenterWftuylsWZPWTAMVSV7569-76-49 16:49:00 Test Item Value Reference Range Interpretation Comments Lymphocytes (test code = Lymphocytes) 28.6 20.0-40.0 [facility] CenterSjvngppYIDKNAOHQZ2735-30-56 16:49:00 Test Item Value Reference Range Interpretation Comments Segs (test code = Segs) 62.5 45.0-75.[address] [facility] HospitalMessageGears GQNHW2965-49-00 16:49:00 Test Item Value Reference Range Interpretation Comments Lactic Acid Lvl (test code = Lactic 1.4 0.5-2.2 Acid Lvl) [facility] HospitalXmzvoavDZMQVRXHKQWA6203-47-89 16:49:00 Test Item Value Reference Range Interpretation Comments AGAP (test code = AGAP) 11.0 10.0-20.0 [facility] HospitalNxlhahtQAHVNVFPVSFU4896-28-00 16:49:00 Test Item Value Reference Range Interpretation Comments eGFR (test code = eGFR) [address] [facility] [address] HospitalMessageGears HPBOC0034-59-99 10:27:00 Test Item Value Reference Range Interpretation Comments Magnesium Lvl (test code = Magnesium 2.0 1.8-2.4 Lvl) [facility] HospitalSvxjijaUBHBNIIHTABY9812-55-59 10:27:00 Test Item Value Reference Range Interpretation Comments Chloride Lvl (test code = Chloride Lvl) 103 95-109 [facility] HospitalMnfwyshGSKCTTZIANYQ2759-09-12 10:27:00 Test Item Value Reference Range Interpretation Comments AGAP (test code = AGAP) 8.4 10.0-20.0 [facility] HospitalCkbaezkHXPFNLHBHECC1808-23-28 10:27:00 Test Item Value Reference Range Interpretation Comments Calcium Lvl (test code = Calcium Lvl) 9.0 8.5-10.5 [facility] HospitalMejgojeGKJZRHEYWBCZ8420-24-72 10:27:00 Test Item Value Reference Range Interpretation Comments CO2 (test code = CO2) 28 24-32 [facility] HospitalKltylcrXIGRYLSOMGOI1965-30-00 10:27:00 Test Item Value Reference Range Interpretation Comments Glucose Lvl (test code = Glucose Lvl) 114 70-99 [facility] HospitalBklztlpUVZNXNIBXIBG0424-92-92 10:27:00 Test Item Value Reference Range Interpretation Comments BUN (test code = BUN) 21 7-22 [facility] HospitalLbtuwvuGAVOUISJYTYR5063-72-62 10:27:00 Test Item Value Reference Range Interpretation Comments Creatinine Lvl (test code = Creatinine 1.52 0.50-1.40 Lvl) [facility] HospitalUgdnryhTGXFTRZBAWOQ6980-63-25 10:27:00 Test Item Value Reference Range Interpretation Comments Sodium Lvl (test code = Sodium Lvl) 135 135-145 [facility] HospitalTarxcizIROTKPLDXBHY3692-35-91 10:27:00 Test Item Value Reference Range Interpretation Comments Potassium Lvl (test code = Potassium 4.4 3.5-5.1 Lvl) [facility] HospitalHjvjbajMIIHSMFBIIMF7372-81-99 10:27:00 Test Item Value Reference Range Interpretation Comments eGFR (test code = eGFR) 55 [facility] CenterQcgbsgzWWQOAGSEUH1945-96-88 10:27:00 Test Item Value Reference Range Interpretation Comments Eosinophils (test code = 1.6 See_Comment [A utomated message] The Eosinophils) system which ge nerated this result tra nsmitted reference range : <=4.0. The reference r davey was not used to int erpret this result as normal/abnormal . [facility] CenterDzkmgivMLADMYRIMT7889-48-92 10:27:00 Test Item Value Reference Range Interpretation Comments Lymphocytes # (test code = Lymphocytes 3.4 1.0-5.5 #) [facility] CenterPnqqmjzRYPZUXKYRF5068-07-44 10:27:00 Test Item Value Reference Range Interpretation Comments Basophils (test code = 0.3 See_Comment [Aut omated message] The Basophils) system which ge nerated this result tra nsmitted reference range : <=1.0. The reference r davey was not used to int erpret this result as normal/abnormal . [facility] CenterYfignhmGWSVRMMAXJ1000-85-95 10:27:00 Test Item Value Reference Range Interpretation Comments Monocytes # (test code 0.6 See_Comment [Aut omated message] The = Monocytes #) system which generated this result tra nsmitted reference range : <=0.8. The reference r davey was not used to int erpret this result as normal/abnormal . [facility] CenterAbsxjsfQFTNECATZQ9540-21-64 10:27:00 Test Item Value Reference Range Interpretation Comments Segs-Bands # (test code = Segs-Bands #) 5.3 1.5-8.1 [facility] CenterKswiohtVOSXJAIHBC9129-71-73 10:27:00 Test Item Value Reference Range Interpretation Comments Segs (test code = Segs) 56.3 45.0-75.0 [facility] CenterDddaqueIQFQIPSTUK3460-37-05 10:27:00 Test Item Value Reference Range Interpretation Comments Monocytes (test code = Monocytes) 6.0 2.0-12.0 [facility] CenterUlhhijgPEFQKMZVKC9672-18-39 10:27:00 Test Item Value Reference Range Interpretation Comments Lymphocytes (test code = Lymphocytes) 35.8 20.0-40.0 [facility] CenterSryqopwFIMKPBQOJP8242-88-69 10:27:00 Test Item Value Reference Range Interpretation Comments Eosinophils # (test code 0.2 See_Comment [A utomated message] The = Eosinophils #) system [employer] h generated this result tra nsmitted reference range : <=0.5. The reference r davey was not used to int erpret this result as normal/abnormal . [facility] CenterOyvidugOVPKFULNJA9195-29-27 10:27:00 Test Item Value Reference Range Interpretation Comments Platelet (test code = Platelet) 363 133-450 [facility] CenterCptcjugUWKXXDZQTZ3059-53-03 10:27:00 Test Item Value Reference Range Interpretation Comments MPV (test code = MPV) 6.3 7.4-10.4 [facility] CenterPuavzekYUYWQHAGGX9172-25-02 10:27:00 Test Item Value Reference Range Interpretation Comments MCHC (test code = MCHC) 33.0 32.0-36.0 [facility] CenterSajjuhuHRUBUHLQNZ4967-26-86 10:27:00 Test Item Value Reference Range Interpretation Comments RDW (test code = RDW) 13.3 11.5-14.5 [facility] CenterIpwovriMFITOBPWTR8451-35-87 10:27:00 Test Item Value Reference Range Interpretation Comments Hct (test code = Hct) 41.9 42.0-54.0 [facility] CenterMxfmujiCHBLUYZWWX1772-80-61 10:27:00 Test Item Value Reference Range Interpretation Comments MCV (test code = MCV) 86.1 80.0-94.0 [facility] CenterXcetmniFPJUOMCQCR2673-34-12 10:27:00 Test Item Value Reference Range Interpretation Comments RBC (test code = RBC) 4.87 4.70-6.10 [facility] CenterEhghjckXPVLZTHZQM1387-07-13 10:27:00 Test Item Value Reference Range Interpretation Comments Hgb (test code = Hgb) 13.8 14.0-18.0 [facility] CenterBonkfkjPUNRVMZKUT2135-14-53 10:27:00 Test Item Value Reference Range Interpretation Comments WBC (test code = WBC) 9.4 3.7-10.4 [facility] CenterTlsnpbmYAURHTXQNF8603-99-88 10:27:00 Test Item Value Reference Range Interpretation Comments MCH (test code = MCH) 28.4 pg 27.0-31.[address] [facility] HospitalCHEM HJQLT6497-91-80 10:27:00 Test Item Value Reference Range Interpretation Comments Magnesium Lvl (test code = Magnesium 2.0 1.8-2.4 Lvl) [facility] HospitalZfpaqurFLTKNCXYEIKO2593-03-49 10:27:00 Test Item Value Reference Range Interpretation Comments Chloride Lvl (test code = Chloride Lvl) 103 95-109 [facility] HospitalTaleenbASETOUNKNIEF0715-98-17 10:27:00 Test Item Value Reference Range Interpretation Comments AGAP (test code = AGAP) 8.4 10.0-20.0 [facility] HospitalTixkjhhFGEVUTLMCUTD4932-32-84 10:27:00 Test Item Value Reference Range Interpretation Comments Calcium Lvl (test code = Calcium Lvl) 9.0 8.5-10.5 [facility] HospitalJgtflavHGYUPLLIZYXL5683-99-58 10:27:00 Test Item Value Reference Range Interpretation Comments CO2 (test code = CO2) 28 24-32 [facility] HospitalKgdvetcEYBCNCPJGDYZ2296-36-95 10:27:00 Test Item Value Reference Range Interpretation Comments Glucose Lvl (test code = Glucose Lvl) 114 70-99 [facility] HospitalAtfxngeTYQIMEVXEYKJ7048-91-98 10:27:00 Test Item Value Reference Range Interpretation Comments BUN (test code = BUN) 21 7-22 [facility] HospitalHbzuueoYFTRPIUILLGS5558-93-35 10:27:00 Test Item Value Reference Range Interpretation Comments Creatinine Lvl (test code = Creatinine 1.52 0.50-1.40 Lvl) [facility] HospitalKvutpcaVQVCNPGNJIWU3502-03-78 10:27:00 Test Item Value Reference Range Interpretation Comments Sodium Lvl (test code = Sodium Lvl) 135 135-145 [facility] HospitalMxsgbivAGMULSCBHPHM1686-05-86 10:27:00 Test Item Value Reference Range Interpretation Comments Potassium Lvl (test code = Potassium 4.4 3.5-5.1 Lvl) [facility] HospitalJmxeffnGJUUHHIDXKWE5598-15-49 10:27:00 Test Item Value Reference Range Interpretation Comments eGFR (test code = eGFR) [address] [facility] HospitalFcxuncfHDJGUQCBDJ3125-91-35 10:27:00 Test Item Value Reference Range Interpretation Comments Eosinophils (test code = 1.6 See_Comment [A utomated message] The Eosinophils) system which ge nerated this result tra nsmitted reference range : <=4.0. The reference r davey was not used to int erpret this result as normal/abnormal . [facility] CenterAagtpsxZLRHMAKOVP4482-82-95 10:27:00 Test Item Value Reference Range Interpretation Comments Lymphocytes # (test code = Lymphocytes 3.4 1.0-5.5 #) [facility] CenterYoetwjqYZWHDYLIBE5871-84-94 10:27:00 Test Item Value Reference Range Interpretation Comments Basophils (test code = 0.3 See_Comment [Aut omated message] The Basophils) system which ge nerated this result tra nsmitted reference range : <=1.0. The reference r davey was not used to int erpret this result as normal/abnormal . [facility] CenterHeshbprEQVMSMYAZL8336-74-00 10:27:00 Test Item Value Reference Range Interpretation Comments Monocytes # (test code 0.6 See_Comment [Aut omated message] The = Monocytes #) system which generated this result tra nsmitted reference range : <=0.8. The reference r davey was not used to int erpret this result as normal/abnormal . [facility] CenterIpclfxeCJTPOAKFVT2187-86-57 10:27:00 Test Item Value Reference Range Interpretation Comments Segs-Bands # (test code = Segs-Bands #) 5.3 1.5-8.1 [facility] CenterLvewonkNVCTZXNHER5713-59-72 10:27:00 Test Item Value Reference Range Interpretation Comments Segs (test code = Segs) 56.3 45.0-75.0 [facility] CenterGsrxouiCICSXFGLXO9750-95-95 10:27:00 Test Item Value Reference Range Interpretation Comments Monocytes (test code = Monocytes) 6.0 2.0-12.0 [facility] CenterBgfnyyiRNNAZHUNQM3760-03-60 10:27:00 Test Item Value Reference Range Interpretation Comments Lymphocytes (test code = Lymphocytes) 35.8 20.0-40.0 [facility] CenterPdhusnbBCEVUAKDVS9374-13-47 10:27:00 Test Item Value Reference Range Interpretation Comments Eosinophils # (test code 0.2 See_Comment [A utomated message] The = Eosinophils #) system ic h generated this result tra nsmitted reference range : <=0.5. The reference r davey was not used to int erpret this result as normal/abnormal . [facility] CenterPsagzdsUTZBSCCEQP2332-88-85 10:27:00 Test Item Value Reference Range Interpretation Comments Platelet (test code = Platelet) 363 133-450 [facility] CenterOzurvebTSAXXZFDBP2054-98-67 10:27:00 Test Item Value Reference Range Interpretation Comments MPV (test code = MPV) 6.3 7.4-10.4 [facility] CenterCpnfudhAGHYHCXMMF5857-62-90 10:27:00 Test Item Value Reference Range Interpretation Comments MCHC (test code = MCHC) 33.0 32.0-36.0 [facility] CenterBynmkszHCDBVPDLQY2211-55-93 10:27:00 Test Item Value Reference Range Interpretation Comments RDW (test code = RDW) 13.3 11.5-14.5 [facility] CenterTojoqldLXMAAUEXEN2974-26-85 10:27:00 Test Item Value Reference Range Interpretation Comments Hct (test code = Hct) 41.9 42.0-54.0 [facility] CenterEezmwkpQZRGOXSYXT4132-69-54 10:27:00 Test Item Value Reference Range Interpretation Comments MCV (test code = MCV) 86.1 80.0-94.0 [facility] CenterThrorqbRBGXGYKYFK7644-95-62 10:27:00 Test Item Value Reference Range Interpretation Comments RBC (test code = RBC) 4.87 4.70-6.10 [facility] CenterVgpadytFZVKVISRDV6416-95-28 10:27:00 Test Item Value Reference Range Interpretation Comments Hgb (test code = Hgb) 13.8 14.0-18.0 [facility] CenterJorhwooNTKSMONKXA6650-52-54 10:27:00 Test Item Value Reference Range Interpretation Comments WBC (test code = WBC) 9.4 3.7-10.4 [facility] CenterVwivjxyDBPILKGVGD4759-83-34 10:27:00 Test Item Value Reference Range Interpretation Comments MCH (test code = MCH) 28.4 pg 27.0-31.0 [facility]2016-12-20 11:02:00 Test Item Value Reference Range Interpretation Comments Phosphorus (test code = Phosphorus) 2.4 2.5-4.5 [facility]2016-12-20 11:02:00 Test Item Value Reference Range Interpretation Comments Magnesium Lvl (test code = Magnesium 2.0 1.8-2.4 Lvl) [facility]2016-12-20 11:02:00 Test Item Value Reference Range Interpretation Comments Phosphorus (test code = Phosphorus) 2.4 2.5-4.5 [facility] HermannCHEM [id number] 11:02:00 Test Item Value Reference Range Interpretation Comments Magnesium Lvl (test code = Magnesium 2.0 1.8-2.4 Lvl) [facility] NLPFNIYGP0812-85-26 22:31:00 Test Item Value Reference Range Interpretation Comments Hgb A1C (test code = Hgb A1C) 6.9 [facility]annSPECIAL DOXCWVXVU9683-70-39 22:31:00 Test Item Value Reference Range Interpretation Comments Hgb A1C (test code = Hgb A1C) 6.9 [facility] AQFGBEA2858-63-78 11:10:00 Test Item Value Reference Range Interpretation Comments proBNP (test code = 40 See_Comment [Automa rafia message] The proBNP) system which ge nerated this result tra nsmitted reference range : <=125. The reference r davey was not used to int erpret this result as haydee l/abnormal. [facility] DallasOzfxmasQAKSXDLJRG3592-62-52 11:10:00 Test Item Value Reference Range Interpretation Comments Etoh (%) (test code = Etoh (%)) no gt [facility] XdrvfynRQOXDMITPM9938-21-78 11:10:00 Test Item Value Reference Range Interpretation Comments Ethanol Lvl (test code = Ethanol Lvl) no [facility] HospitalannCARDIAC IHJUBHT5623-24-49 11:10:00 Test Item Value Reference Range Interpretation Comments proBNP (test code = 40 See_Comment [Automa rafia message] The proBNP) system which ge nerated this result tra nsmitted reference range : <=125. The reference r davey was not used to int erpret this result as haydee l/abnormal. [facility] DallasYuxaiefHDMUWXWUVD3618-25-93 11:10:00 Test Item Value Reference Range Interpretation Comments Etoh (%) (test code = Etoh (%)) no gt [facility] PxbjwtrWKDDSPVTMH2621-40-99 11:10:00 Test Item Value Reference Range Interpretation Comments Ethanol Lvl (test code = Ethanol Lvl) no [facility] HospitalannCARDIAC HVCAIIO7764-13-71 11:00:00 Test Item Value Reference Range Interpretation Comments CK MB (test code = CK MB) 1.2 0.5-3.[address] HospitalOlive Loom ZQIVQWH0332-11-98 11:00:00 Test Item Value Reference Range Interpretation Comments Troponin-I (test code no gt See_Comment [Auto mated message] The = Troponin-I) system which g enerated this result transmit rafia reference range : <=0.40. The reference r davey was not used to interpr et this result as haydee l/abnormal. [facility] DallasSabirmedical WNQSCMR8668-13-47 11:00:00 Test Item Value Reference Range Interpretation Comments Total CK (test code = Total CK) 86 12-191 [facility] YNPGDRY9835-59-42 11:00:00 Test Item Value Reference Range Interpretation Comments CK MB Index (test 1.4 See_Comment [Automate d message] The code = CK MB Index) system w [facility] generated this result transmit rafia reference range : <=2.5. The reference range was not used to interpr et this result as haydee l/abnormal. [facility] DallasBjmwvuiRMTINPLEXW9814-82-11 11:00:00 Test Item Value Reference Range Interpretation Comments PTT (test code = PTT) 26.0 s 22.9-35.8 [facility] DallasClyyueqQITCQXCGAN6110-91-26 11:00:00 Test Item Value Reference Range Interpretation Comments PT (test code = PT) 13.0 s 12.0-14.[address] [facility] HospitalThtnxhsEVTORVLQRG0467-19-06 11:00:00 Test Item Value Reference Range Interpretation Comments INR (test code = INR) 0.96 0.85-1.17 [facility] 11:00:00 Test Item Value Reference Range Interpretation Comments CK MB (test code = CK MB) 1.2 0.5-3.[address] [facility] [address] [facility] HospitalSpunLivePCYHDWU8235-33-72 11:00:00 Test Item Value Reference Range Interpretation Comments Troponin-I (test code no gt See_Comment [Auto mated message] The = Troponin-I) system which g enerated this result transmit rafia reference range : <=0.40. The reference r davey was not used to interpr et this result as haydee l/abnormal. [facility] DallasSabirmedical ZKSIYGM8482-37-42 11:00:00 Test Item Value Reference Range Interpretation Comments Total CK (test code = Total CK) 86 12-191 [facility] DallasannCARDIAC HGXTXTN3816-94-85 11:00:00 Test Item Value Reference Range Interpretation Comments CK MB Index (test 1.4 See_Comment [Automate d message] The code = CK MB Index) system w [facility] generated this result transmit rafia reference range : <=2.5. The reference range was not used to interpr et this result as haydee l/abnormal. [facility] HospitalActnweqKMKHFJKFKT2492-36-68 11:00:00 Test Item Value Reference Range Interpretation Comments PTT (test code = PTT) 26.0 s 22.9-35.8 [facility] HospitalXxjoaloYSMQLTUNSW7930-79-74 11:00:00 Test Item Value Reference Range Interpretation Comments PT (test code = PT) 13.0 s 12.0-14.7 [facility] HospitalLnqcrioEXDCSOXNNA3058-73-48 11:00:00 Test Item Value Reference Range Interpretation Comments INR (test code = INR) 0.96 0.85-1.[address] [facility] [address] [facility] HospitalCHEM UAHQZ8411-08-49 21:20:00 Test Item Value Reference Range Interpretation Comments Lipase Lvl (test code = Lipase Lvl) 220 73-393 [facility] HospitalEmxleihLNSAMSDJSRKQ6487-59-32 21:20:00 Test Item Value Reference Range Interpretation Comments AGAP (test code = AGAP) 12.1 10.0-20.0 [facility] HospitalVhqrmttLMKXCMHTQMRD0928-43-17 21:20:00 Test Item Value Reference Range Interpretation Comments Globulin (test code = Globulin) 4.0 2.0-4.0 [facility]UTF[facility]KERF5890[facility]21 21:20:00 Test Item Value Reference Range Interpretation Comments A/G Ratio (test code = A/G Ratio) 0.8 0.7-1.6 [facility]InrlpbxPQCGYDICRXGP8784-07-68 21:20:00 Test Item Value Reference Range Interpretation Comments B/C Ratio (test code = B/C Ratio) 12 6-25 [facility]LudkukoAWSOIVSXJZGQ9383-01-06 21:20:00 Test Item Value Reference Range Interpretation Comments Bili Total (test code = Bili Total) 0.5 0.2-1.3 [facility] HospitalNodgzasINBQLJPGNYGW2636-38-42 21:20:00 Test Item Value Reference Range Interpretation Comments Alk Phos (test code = Alk Phos) 133 39-136 [facility] HospitalNmjmbgcDBGNRVKKPRNJ9209-79-96 21:20:00 Test Item Value Reference Range Interpretation Comments AST (test code = AST) 19 See_Comment [Auto mated message] The system which ge nerated this result transmit rafia reference range : <=37. The reference range was not used to interpr et this result as haydee l/abnormal. [facility] HospitalKaxmcqpOCTDOAHWUQSL8632-80-50 21:20:00 Test Item Value Reference Range Interpretation Comments eGFR (test code = eGFR) 54 [facility] HospitalRcrybvdIHIWQODDVLUB0953-12-24 21:20:00 Test Item Value Reference Range Interpretation Comments Albumin Lvl (test code = Albumin Lvl) 3.4 3.5-5.0 [facility] HospitalQqgccubAYMFTGXBGAGD3761-36-11 21:20:00 Test Item Value Reference Range Interpretation Comments ALT (test code = ALT) 44 See_Comment [Auto mated message] The system which ge nerated this result transmit rafia reference range : <=65. The reference range was not used to interpr et this result as haydee l/abnormal. [facility] HospitalXmkbmmoQTWUUHOKGXSW2171-45-32 21:20:00 Test Item Value Reference Range Interpretation Comments Calcium Lvl (test code = Calcium Lvl) 8.8 8.5-10.5 [facility] HospitalDsblnvxBHMVVHHQYFDW3139-48-40 21:20:00 Test Item Value Reference Range Interpretation Comments CO2 (test code = CO2) 23 24-32 [facility] HospitalBxnokemGWYUMKTSULBO9196-66-93 21:20:00 Test Item Value Reference Range Interpretation Comments Total Protein (test code = Total 7.4 6.4-8.4 Protein) [facility] HospitalMdlwqpkXWTFATRBYOFY6222-10-56 21:20:00 Test Item Value Reference Range Interpretation Comments Sodium Lvl (test code = Sodium Lvl) 139 135-145 [facility] HospitalKqdfyzgFNZYUWJXCGMV6941-77-53 21:20:00 Test Item Value Reference Range Interpretation Comments Potassium Lvl (test code = Potassium 4.1 3.5-5.1 Lvl) [facility] HospitalHcenmvjDLEJDZDMIIZV3715-53-43 21:20:00 Test Item Value Reference Range Interpretation Comments Chloride Lvl (test code = Chloride Lvl) 108 95-109 [facility] HospitalYqzhjrxIVQQOLROOIGE3540-18-20 21:20:00 Test Item Value Reference Range Interpretation Comments Glucose Lvl (test code = Glucose Lvl) 187 70-99 [facility] HospitalNvaeglzLAARYOIZQJRM1112-47-74 21:20:00 Test Item Value Reference Range Interpretation Comments BUN (test code = BUN) 18 7-22 [facility] HospitalFvvhehgIJZQLGYVYOWQ4861-34-13 21:20:00 Test Item Value Reference Range Interpretation Comments Creatinine Lvl (test code = Creatinine 1.56 0.50-1.40 Lvl) [facility] CenterVessvnaCHNFBZWEKH8633-60-78 21:20:00 Test Item Value Reference Range Interpretation Comments Eosinophils # (test code 0.3 See_Comment [A utomated message] The = Eosinophils #) system whic h generated this result tra nsmitted reference range : <=0.5. The reference r davey was not used to int erpret this result as normal/abnormal . [facility] CenterUstqqjeJCJBTXFTBW4724-51-70 21:20:00 Test Item Value Reference Range Interpretation Comments Segs-Bands # (test code = Segs-Bands #) 7.8 1.5-8.1 [facility] CenterKfqluecQNUKJJEIMU6651-71-32 21:20:00 Test Item Value Reference Range Interpretation Comments Lymphocytes # (test code = Lymphocytes 1.4 1.0-5.5 #) [facility] CenterMzzkexvWORZQGEEMA2659-17-92 21:20:00 Test Item Value Reference Range Interpretation Comments Monocytes # (test code 0.7 See_Comment [Aut omated message] The = Monocytes #) system which generated this result tra nsmitted reference range : <=0.8. The reference r davey was not used to int erpret this result as normal/abnormal . [facility] CenterRqzknxkMISVLEQCWY2714-44-18 21:20:00 Test Item Value Reference Range Interpretation Comments Segs (test code = Segs) 76.7 45.0-75.0 [facility] CenterFhablncIOGFKRXRQF8647-70-30 21:20:00 Test Item Value Reference Range Interpretation Comments Lymphocytes (test code = Lymphocytes) 13.4 20.0-40.0 [facility] CenterMvpvfxuEYFSVVWKPT1824-29-47 21:20:00 Test Item Value Reference Range Interpretation Comments Monocytes (test code = Monocytes) 7.2 2.0-12.0 [facility] CenterRwyytsnWWYIXBCBWK4698-81-70 21:20:00 Test Item Value Reference Range Interpretation Comments Eosinophils (test code = 2.5 See_Comment [A utomated message] The Eosinophils) system which ge nerated this result tra nsmitted reference range : <=4.0. The reference r davey was not used to int erpret this result as normal/abnormal . [facility] CenterYvmhaqpBBVCEUIXAJ7051-68-53 21:20:00 Test Item Value Reference Range Interpretation Comments Basophils (test code = 0.2 See_Comment [Aut omated message] The Basophils) system which ge nerated this result tra nsmitted reference range : <=1.0. The reference r davey was not used to int erpret this result as normal/abnormal . [facility] CenterOptmzknTACPRVCXYF1051-53-98 21:20:00 Test Item Value Reference Range Interpretation Comments MCHC (test code = MCHC) 32.9 32.0-36.0 [facility] CenterGbdbzbfKJDKDNFBQJ0920-62-32 21:20:00 Test Item Value Reference Range Interpretation Comments RDW (test code = RDW) 13.9 11.5-14.5 [facility] CenterAlypkqrEFMQDMROBR8661-57-06 21:20:00 Test Item Value Reference Range Interpretation Comments MCH (test code = MCH) 29.7 pg 27.0-31.0 [facility] CenterSotszqoTIYXUIPZZI8448-71-07 21:20:00 Test Item Value Reference Range Interpretation Comments MPV (test code = MPV) 6.9 7.4-10.4 [facility] CenterHuppocrTLMIYPJXAC2957-26-76 21:20:00 Test Item Value Reference Range Interpretation Comments Platelet (test code = Platelet) 286 133-450 [facility] CenterGdcxoegCDNNAOXOZG7007-47-80 21:20:00 Test Item Value Reference Range Interpretation Comments WBC (test code = WBC) 10.1 3.7-10.4 [facility] CenterJyxlliwNHDEMTERHR2325-71-58 21:20:00 Test Item Value Reference Range Interpretation Comments RBC (test code = RBC) 5.49 4.70-6.10 [facility] CenterLqwftmsREJTXNMXFW8466-15-56 21:20:00 Test Item Value Reference Range Interpretation Comments MCV (test code = MCV) 90.3 80.0-94.0 [facility] CenterEzhsgrbMKUIIZYAQG1388-41-34 21:20:00 Test Item Value Reference Range Interpretation Comments Hct (test code = Hct) 49.6 42.0-54.[address] [facility] [address] HospitalUdwuubuFNZBDCUBTQ3230-59-32 21:20:00 Test Item Value Reference Range Interpretation Comments Hgb (test code = Hgb) 16.3 14.0-18.[address] [facility] [address] [facility] HospitalCHEM HEKXL1591-50-60 21:20:00 Test Item Value Reference Range Interpretation Comments Lipase Lvl (test code = Lipase Lvl) 220 73-393 [facility] HospitalRenglbaLXFHYPGKRJYQ3436-18-19 21:20:00 Test Item Value Reference Range Interpretation Comments AGAP (test code = AGAP) 12.1 10.0-20.0 [facility] HospitalOgngjwmNQYJYZFGVHYV9690-64-74 21:20:00 Test Item Value Reference Range Interpretation Comments Globulin (test code = Globulin) 4.0 2.0-4.0 [facility] HospitalLnmmyrvUHQNZRRLNNGC3438-88-85 21:20:00 Test Item Value Reference Range Interpretation Comments A/G Ratio (test code = A/G Ratio) 0.8 0.7-1.6 [facility] HospitalJgnlfbbYMYYGRIJMBPQ7068-63-10 21:20:00 Test Item Value Reference Range Interpretation Comments B/C Ratio (test code = B/C Ratio) 12 6-25 [facility] HospitalVhfblquEMXGJKZDZUNM5158-73-48 21:20:00 Test Item Value Reference Range Interpretation Comments Bili Total (test code = Bili Total) 0.5 0.2-1.3 [facility] HospitalLelifjvUTLZVDKSNRXK3423-55-64 21:20:00 Test Item Value Reference Range Interpretation Comments Alk Phos (test code = Alk Phos) 133 39-136 [facility] HospitalIpttdaxWLVMCCBUBSUK3236-50-05 21:20:00 Test Item Value Reference Range Interpretation Comments AST (test code = AST) 19 See_Comment [Auto mated message] The system which ge nerated this result transmit rafia reference range : <=37. The reference range was not used to interpr et this result as haydee l/abnormal. [facility] HospitalXmliqluYXWDYIGMJJGF9714-11-45 21:20:00 Test Item Value Reference Range Interpretation Comments eGFR (test code = eGFR) 54 [facility] HospitalCiybrziUJABDIVNJHMV7825-81-25 21:20:00 Test Item Value Reference Range Interpretation Comments Albumin Lvl (test code = Albumin Lvl) 3.4 3.5-5.0 [facility] HospitalSmphxkfMXJTOMVAVNNL2802-44-30 21:20:00 Test Item Value Reference Range Interpretation Comments ALT (test code = ALT) 44 See_Comment [Auto mated message] The system which ge nerated this result transmit rafia reference range : <=65. The reference range was not used to interpr et this result as haydee l/abnormal. [facility] HospitalEhdykqfKWMGDKLDLDJW0543-42-79 21:20:00 Test Item Value Reference Range Interpretation Comments Calcium Lvl (test code = Calcium Lvl) 8.8 8.5-10.5 [facility] HospitalPtassntROKFXJRZUFGC5348-77-69 21:20:00 Test Item Value Reference Range Interpretation Comments CO2 (test code = CO2) 23 24-32 [facility] HospitalAezcpqhFVTXFSSSBZYT3895-31-77 21:20:00 Test Item Value Reference Range Interpretation Comments Total Protein (test code = Total 7.4 6.4-8.4 Protein) [facility] HospitalGwqjmmoVSCKKGVEDGFP8021-43-96 21:20:00 Test Item Value Reference Range Interpretation Comments Sodium Lvl (test code = Sodium Lvl) 139 135-145 [facility] HospitalPpbnbhvFMSVQBDOGYLL3329-86-78 21:20:00 Test Item Value Reference Range Interpretation Comments Potassium Lvl (test code = Potassium 4.1 3.5-5.1 Lvl) [facility] HospitalWpxcwpeTUZMBFLNNBXI6012-97-94 21:20:00 Test Item Value Reference Range Interpretation Comments Chloride Lvl (test code = Chloride Lvl) 108 95-109 [facility] HospitalRjfooydTUTLUNEVTQHL6689-15-05 21:20:00 Test Item Value Reference Range Interpretation Comments Glucose Lvl (test code = Glucose Lvl) 187 70-99 [facility] HospitalAoeurafHAQQFINTKEOH6345-57-21 21:20:00 Test Item Value Reference Range Interpretation Comments BUN (test code = BUN) 18 7-22 [facility] HospitalFhzthuiKEQHEXMQBVAH8557-41-28 21:20:00 Test Item Value Reference Range Interpretation Comments Creatinine Lvl (test code = Creatinine 1.56 0.50-1.40 Lvl) [facility] HospitalYoglbxjTIDNOGBCEQ7198-87-18 21:20:00 Test Item Value Reference Range Interpretation Comments Eosinophils # (test code 0.3 See_Comment [A utomated message] The = Eosinophils #) system whic h generated this result tra nsmitted reference range : <=0.5. The reference r davey was not used to int erpret this result as normal/abnormal . [facility] CenterSmhlixwKOEXCDCBWA3135-20-83 21:20:00 Test Item Value Reference Range Interpretation Comments Segs-Bands # (test code = Segs-Bands #) 7.8 1.5-8.1 [facility] CenterNcnkdyfRENLYBIRFG7487-80-42 21:20:00 Test Item Value Reference Range Interpretation Comments Lymphocytes # (test code = Lymphocytes 1.4 1.0-5.5 #) [facility] CenterOtyuozhYFXUVPZXGB1943-20-10 21:20:00 Test Item Value Reference Range Interpretation Comments Monocytes # (test code 0.7 See_Comment [Aut omated message] The = Monocytes #) system which generated this result tra nsmitted reference range : <=0.8. The reference r daevy was not used to int erpret this result as normal/abnormal . [facility] CenterFipbwhkRYKVGXWSPU5256-39-44 21:20:00 Test Item Value Reference Range Interpretation Comments Segs (test code = Segs) 76.7 45.0-75.0 [facility] CenterJcgslkuONOPSFFDLQ1231-80-95 21:20:00 Test Item Value Reference Range Interpretation Comments Lymphocytes (test code = Lymphocytes) 13.4 20.0-40.0 [facility] CenterUvjaaiePIKBKSAURD8991-17-28 21:20:00 Test Item Value Reference Range Interpretation Comments Monocytes (test code = Monocytes) 7.2 2.0-12.0 [facility] CenterXuiazscBGVQJGUIPL5553-87-84 21:20:00 Test Item Value Reference Range Interpretation Comments Eosinophils (test code = 2.5 See_Comment [A utomated message] The Eosinophils) system which ge nerated this result tra nsmitted reference range : <=4.0. The reference r davey was not used to int erpret this result as normal/abnormal . [facility] CenterUibieqsDGMPUAAQFY9002-50-50 21:20:00 Test Item Value Reference Range Interpretation Comments Basophils (test code = 0.2 See_Comment [Aut omated message] The Basophils) system which ge nerated this result tra nsmitted reference range : <=1.0. The reference r davey was not used to int erpret this result as normal/abnormal . [facility] CenterStqnrsxPEPMZHVBBN1786-30-50 21:20:00 Test Item Value Reference Range Interpretation Comments MCHC (test code = MCHC) 32.9 32.0-36.0 [facility] CenterTkclnlvHIZYKWUGMI5739-66-97 21:20:00 Test Item Value Reference Range Interpretation Comments RDW (test code = RDW) 13.9 11.5-14.5 [facility] CenterYercwhwNOMUHUIMXC9934-52-51 21:20:00 Test Item Value Reference Range Interpretation Comments MCH (test code = MCH) 29.7 pg 27.0-31.0 [facility] CenterJrckovkMVELWIDVVM6865-88-76 21:20:00 Test Item Value Reference Range Interpretation Comments MPV (test code = MPV) 6.9 7.4-10.4 [facility] CenterVprdcppQTWBQVUZGM7037-05-61 21:20:00 Test Item Value Reference Range Interpretation Comments Platelet (test code = Platelet) 286 700-450 [facility] CenterIgvysflCGKJLYRNYC0043-13-44 21:20:00 Test Item Value Reference Range Interpretation Comments WBC (test code = WBC) 10.1 3.7-10.4 [facility] CenterBgmpxvaWTJITTVMXY4669-63-69 21:20:00 Test Item Value Reference Range Interpretation Comments RBC (test code = RBC) 5.49 4.70-6.10 [facility] CenterNtpepoiGQUBZZCLIM9971-81-83 21:20:00 Test Item Value Reference Range Interpretation Comments MCV (test code = MCV) 90.3 80.0-94.0 [facility] CenterEqddekrSUACGUNKVG7174-72-53 21:20:00 Test Item Value Reference Range Interpretation Comments Hct (test code = Hct) 49.6 42.0-54.0 [facility] CenterQlytkdnHQPESQYATO2301-73-14 21:20:00 Test Item Value Reference Range Interpretation Comments Hgb (test code = Hgb) 16.3 14.0-18.0 [facility] [facility]
[2022-04-29 20:13] LABS: Absolute Lymphocytes (CBC) 2.5 K/uL (0.7-4.9); Hematocrit 47.2 % (39.6-49.0); MCV 93.5 fL (80-100); RBC Red Blood Cell Count 5.05 M/uL (4.33-5.43)
[2022-04-29 20:19] LABS: Protime INR 0.95
[2022-04-29 20:30] LABS: Albumin 3.6 g/dL (3.4-5.0); Bilirubin Total 0.3 mg/dL (0.2-1.0); Potassium 4.7 mmol/L (3.5-5.1); Protein, Total 7.4 g/dL (6.4-8.2)
[2022-04-29 20:42] LABS: Urine Blood 1+ (Negative); Urine Glucose 2+ (Negative); Urine Protein 3+ (Negative); Urine pH 5.5 (5.0-7.0)
[2022-04-29 20:54] LABS: Urine Bacteria None Seen /HPF (<20); Urine RBC <5 /HPF (None Seen)
[2022-04-29] MEDS ORDERED: HYDROCODONE/APAP 7.5/325 MG TAB ONE (22:18)
[2022-04-29] MEDS ORDERED: INSULIN -REGULAR HUMAN 50 UNIT/0.5 ML ML ONE (22:19)
[2022-04-30 00:18] VITALS: BP 142/92; TEMP 98; O2SAT 97
--- NOTE | 2022-04-30 13:02 | EKG ---
Test Date: 2022-04-29 Test Time: 21:27:30 General Teller: MEASUREMENT RESULTS: Intervals: Rate: 88 KS: 132 QRSD: 104 QT: 350 QTc: 423 Cleves: P: -5 KS: 132 QRS: -66 T: 34 INTERPRETIVE STATEMENTS: Normal sinus rhythm Left anterior fascicular block Abnormal ECG Compared to ECG 08/04/2021 15:53:24 No significant changes Electronically Signed On 04-30-22 13:01:40 CDT by Oscar Monroy
--- NOTE | 2022-05-11 17:13 | EDPHYS ---
Physician Documentation [facility] Name: Sanjeev Mcpherson Age: 51 yrs Sex: Male : 1970 Arrival Date: 04/29/2022 Time: 19:00 Bed 7 Private MD: EMILY Physician David Alberts Historical: - Allergies: 04/29 19:34 Adhesives; tape; mb9 19:34 Anesthetics - Amide Type; mb9 19:34 Iodine; mb9 - PMHx: 19:34 "I only have 1 lung that works"; BRAIN TUMOR; Cancer; Diabetes - NIDDM; Hyperlipidemia; mb9 Hypertension; Lung Cancer; - PSHx: 19:34 Brain tumor removed; hernia repair; mb9 - Immunization history:: Adult Immunizations up to date. - Social history:: Smoking status: Patient reports the use of cigarette tobacco products, one and 1/2 pack. ROS: 22:52 Constitutional: Negative for fever, chills, and weight loss, Eyes: Negative for injury, snw pain, redness, and discharge, ENT: Negative for injury, pain, and discharge, Neck: Negative for injury, pain, and swelling, Cardiovascular: Negative for chest pain, palpitations, and edema, Respiratory: Negative for shortness of breath, cough, wheezing, and pleuritic chest pain, Abdomen/GI: Negative for abdominal pain, nausea, vomiting, diarrhea, and constipation, Back: Negative for injury and pain, : Negative for injury, bleeding, discharge, and swelling, MS/Extremity: Negative for injury and deformity, Neuro: Negative for headache, weakness, numbness, tingling, and seizure. 22:52 Skin: Positive for abscess, swelling, right lateral lower leg. Exam: 21:30 Respiratory: Lungs have equal breath sounds bilaterally, clear to auscultation and snw percussion. No rales, rhonchi or wheezes noted. No increased work of breathing, no retractions or nasal flaring. Abdomen/GI: Soft, non-tender, with normal bowel sounds. No distension or tympany. No guarding or rebound. No evidence of tenderness throughout. Back: No spinal tenderness. No costovertebral tenderness. Full range of motion. MS/ Extremity: Pulses equal, no cyanosis. Neurovascular intact. Full, normal range of motion. Neuro: Awake and alert, GCS 15, oriented to person, place, time, and situation. Cranial nerves II-XII grossly intact. Motor strength 5/5 in all extremities. Sensory grossly intact. Cerebellar exam normal. Normal gait. 21:30 Skin: Appearance: Color: dusky, Temperature: normal temperature, abscess, that is small, approximately 2 cm(s), with drainage, that is purulent, with surrounding cellulitis, that is moderate, area unroofed and culture obtained, 4x4 to area and tanya placed lightly. 22:48 Head/Face: Normocephalic, atraumatic. Eyes: Pupils equal round and reactive to light, snw extra-ocular motions intact. Lids and lashes normal. Conjunctiva and sclera are non-icteric and not injected. Cornea within normal limits. Periorbital areas with no swelling, redness, or edema. ENT: Nares patent. No nasal discharge, no septal abnormalities noted. Tympanic membranes are normal and external auditory canals are clear. Oropharynx with no redness, swelling, or masses, exudates, or evidence of obstruction, uvula midline. Mucous membranes moist. Neck: Trachea midline, no thyromegaly or masses palpated, and no cervical lymphadenopathy. Supple, full range of motion without nuchal rigidity, or vertebral point tenderness. No Meningismus. Chest/axilla: Normal chest wall appearance and motion. Nontender with no deformity. No lesions are appreciated. 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 22:48 Cardiovascular: Rate: tachycardic, Rhythm: regular, Pulses: no pulse deficits are appreciated. Vital Signs: 19:31 BP 142 / 92; Pulse 108; Resp 20; Temp 98(O); Pulse Ox 97% ; Weight 81.65 kg; Height 5 mb9 ft. 0 in. ; Pain 10/10; 19:31 Body Mass Index 35.15 (81.65 kg, 152.4 cm) mb9 19:31 Pain Scale: Adult mb9 MDM: 19:31 Patient medically screened. snw 22:52 Differential diagnosis: abrasion, contusion, abscess, sepsis. Data reviewed: vital snw signs, nurses notes. I considered the following discharge prescriptions or medication management in the emergency department Medications were administered in the Emergency Department. See MAR. Care significantly affected by the following chronic conditions: Diabetes, Hypertension, Chronic Obstructive Pulmonary Disease, Cancer, Chronic Kidney Disease. Counseling: I had a detailed discussion with the patient and/or guardian regarding: the historical points, exam findings, and any diagnostic results supporting the discharge/admit diagnosis, lab results, radiology results, the need for outpatient follow up, for definitive care, to return to the emergency department if symptoms worsen or persist or if there are any questions or concerns that arise at home. Response to treatment: the patient's symptoms have mildly improved after treatment. Special discussion: I have referred the patient to see his PCP for further evaluation of high blood pressure. I discussed in detail with the patient the higher chance of wound infection based on his presenting history. Based on the history and exam findings, there is no indication for further emergent testing or inpatient evaluation. I discussed with the patient/guardian the need to see the primary care provider for further evaluation of the symptoms. 04/29 19:40 Order name: Blood Culture Adult (2) snw 04/29 19:40 Order name: CBC with Diff; Complete Time: 20:40 snw 04/29 19:40 Order name: CMP; Complete Time: 20:40 snw 04/29 19:40 Order name: Lactate w/ 2H reflex if indic.; Complete Time: 21:58 snw 04/29 19:40 Order name: Protime (+inr); Complete Time: 20:40 snw 04/29 19:40 Order name: Ptt, Activated; Complete Time: 20:40 snw 04/29 19:40 Order name: Urine Microscopic Only; Complete Time: 20:57 snw 04/29 19:40 Order name: Wound Culture w 04/29 20:43 Order name: Urine Dipstick-Ancillary; Complete Time: 20:44 EDMS 04/29 19:40 Order name: EKG; Complete Time: 19:40 snw 04/29 19:40 Order name: Accucheck; Complete Time: 22:08 snw 04/29 19:40 Order name: Cardiac monitoring; Complete Time: 22:23 snw 04/29 19:40 Order name: EKG - Nurse/Tech; Complete Time: 22:30 snw 04/29 19:40 Order name: IV Saline Lock - Large Bore; Complete Time: 22:23 snw 04/29 19:40 Order name: Labs collected and sent; Complete Time: 22:23 snw 04/29 19:40 Order name: O2 Per Protocol; Complete Time: 22:23 snw 04/29 19:40 Order name: O2 Sat Monitoring; Complete Time: : snw 04/29 19:40 Order name: Urine Dipstick-Ancillary (obtain specimen); Complete Time: 22:08 snw 04/29 19:40 Order name: Vital Signs; Complete Time: 22:08 snw EC:30 Rate is 88 beats/min. Rhythm is regular. QRS Kin[place] is Normal. [place] interval is normal. snw Clinical impression: NSR w/ Non-specific ST/T Changes. Administered Medications: 22:23 Drug: Insulin Regular Human IVP 5 units {Co-Signature: vc1 (Josselin Lloyd RN).} as6 Route: IVP; Site: left antecubital; 22:23 Drug: Clindamycin PO 300 mg Route: PO; vc1 22:23 Drug: Hydrocodone-Acetaminophen PO (7.5 mg-325 mg) 1 tabs Route: PO; vc1 Disposition Summary: 04/29/22 22:09 Discharge Ordered Location: Home snw Condition: Stable snw Diagnosis - Cutaneous abscess of right lower limb - mild surrounding cellulitis snw - Hypertensive heart and chronic kidney disease with heart failure and stage 1 snw through stage 4 chronic kidney disease, or unspecified chronic kidney disease Followup: snw - With: Emergency Department - When: As needed - Reason: Worsening of condition Followup: snw - With: Private Physician - When: 2 - 3 days - Reason: Recheck today's complaints, Continuance of care, Re-evaluation by your physician Discharge Instructions: - Discharge Summary Sheet snw - Skin Abscess snw - Cellulitis, Adult snw - Chronic Kidney Disease, Adult snw - Heat Therapy snw Forms: - Medication Reconciliation Form snw - Thank You Letter snw - Antibiotic Education snw - Prescription Opioid Use snw Prescriptions: - Clindamycin HCl 300 mg Oral Capsule - take 1 capsule by ORAL route every 8 hours for 10 days; 30 capsule; Refills: 0, snw Product Selection Permitted Signatures: Dispatcher [employer] Maryjane Bosch FNP-C ELECTRIC STOVE INSTALLER-Bishop Marlow RN RN as6 Josselin Lloyd, RN RN vc1 Richard Nayeli Wilson, RN RN mb9 Prema, Josselin RN vc1
--- NOTE | 2022-05-11 17:13 | ER ---
Nurse's Notes [facility] Name: Sanjeev Mcpherson Age: 51 yrs Sex: Male : 1970 Arrival Date: 04/29/2022 Time: 19:00 Bed 7 Private MD: Diagnosis: Cutaneous abscess of right lower limb-mild surrounding cellulitis;Hypertensive heart and chronic kidney disease with heart failure and stage 1 through stage 4 chronic kidney disease, or unspecified chronic kidney disease Presentation: 04/29 19:31 Chief complaint: Patient states: "I think I got bit two days ago by a spider on my mb9 right lower leg". Coronavirus screen: Vaccine status: Patient reports being unvaccinated. Ebola Screen: No symptoms or risks identified at this time. Initial Sepsis Screen: Does the patient meet any 2 criteria? HR > 90 bpm. Does the patient have a suspected source of infection? No. Patient's initial sepsis screen is negative. Risk Assessment: Do you want to hurt yourself or someone else? Patient reports no desire to harm self or others. Onset of symptoms was April 29, 2022. 19:31 Method Of Arrival: Ambulatory [facility] 19:31 Acuity: JULIANNE 3 mb9 Triage Assessment: 22:47 Bite description: bite sustained to lateral aspect of right calf by an unknown animal, vc1 animal information: vaccination(s) is not applicable. General: Appears in no apparent distress. uncomfortable, Behavior is appropriate for age. Pain: Complains of pain in lateral aspect of right calf Pain currently is 10 out of 10 on a pain scale. EENT: No deficits noted. No signs and/or symptoms were reported regarding the EENT system. Neuro: Level of Consciousness is awake, alert, obeys commands, Oriented to person, place, time, situation, Appropriate for age. Cardiovascular: No deficits noted. Respiratory: Airway is patent Respiratory effort is even, unlabored. GI: No deficits noted. No signs and/or symptoms were reported involving the gastrointestinal system. : No deficits noted. No signs and/or symptoms were reported regarding the genitourinary system. Derm: Wound noted lateral aspect of right calf. Musculoskeletal: No deficits noted. No signs and/or symptoms reported regarding the musculoskeletal system. Historical: - Allergies: 19:34 Adhesives; tape; mb9 19:34 Anesthetics - Amide Type; mb9 19:34 Iodine; mb9 - PMHx: 19:34 "I only have 1 lung that works"; BRAIN TUMOR; Cancer; Diabetes - NIDDM; Hyperlipidemia; mb9 Hypertension; Lung Cancer; - PSHx: 19:34 Brain tumor removed; hernia repair; mb9 - Immunization history:: Adult Immunizations up to date. - Social history:: Smoking status: Patient reports the use of cigarette tobacco products, one and 1/2 pack. Screenin:46 [facility] ED Fall Risk Assessment (Adult) History of falling in the last 3 months, vc1 including since admission No falls in past 3 months (0 pts) Confusion or Disorientation No (0 pts) Intoxicated or Sedated No (0 pts) Impaired Gait No (0 pts) Mobility Assist Device Used Yes (1 pt) Altered Elimination No (0 pt) Score/Fall Risk Level 0 - 2 = Low Risk Oriented to surroundings, Maintained a safe environment, Educated pt \\T\\ family on fall prevention, incl call for assistance when getting out of bed. Abuse screen: Denies threats or abuse. Nutritional screening: No deficits noted. Tuberculosis screening: No symptoms or risk factors identified. Vital Signs: 19:31 BP 142 / 92; Pulse 108; Resp 20; Temp 98(O); Pulse Ox 97% ; Weight 81.65 kg; Height 5 mb9 ft. 0 in. ; Pain 10/10; 19:31 Body Mass Index 35.15 (81.65 kg, 152.4 cm) mb9 19:31 Pain Scale: Adult mb9 ED Course: 19:00 Patient arrived in ED. am2 19:31 [facility] Schwab [facility] 19:31 David Alberts MD is Attending Physician. snw 19:34 Triage completed. mb9 19:34 Arm band placed on. mb9 21:16 Inserted saline lock: 20 gauge in left forearm, using aseptic technique. Blood rv1 collected. 21:45 Wound Culture Sent. rv1 21:46 Lactate w/ 2H reflex if indic. Sent. rv1 22:48 No provider procedures requiring assistance completed. IV discontinued, intact, vc1 bleeding controlled, No redness/swelling at site. Pressure dressing applied. Administered Medications: 22:23 Drug: Insulin Regular Human IVP 5 units {Co-Signature: vc1 (Calcote, Josselin RN).} as6 Route: IVP; Site: left antecubital; 22:23 Drug: Clindamycin PO 300 mg Route: PO; vc1 22:23 Drug: Hydrocodone-Acetaminophen PO (7.5 mg-325 mg) 1 tabs Route: PO; vc1 Medication: 19:36 VIS not applicable for this client. mb9 Outcome: 22:09 Discharge ordered by MD. rios 22:49 Discharged to home ambulatory. vc1 22:49 Condition: good 22:49 Discharge instructions given to patient, Instructed on discharge instructions, follow up and referral plans. medication usage, Demonstrated understanding of instructions, follow-up care, medications, Prescriptions given X 1. 22:49 No charge visit due to 22:49 Patient left the ED. vc1 Addendum: 05/03/2022 09:45 Addendum: Culture Results: Positive wound culture. Prescription called-in to pharmacy a a5 of choice. to [facility] in [place], [place] per pt's choice, called in Bactrim DS BID x 7 days per Karina Virk NP. Pt instructed to stop clindamycin per NURSING HOME PHYSICIAN, pt verbalized understanding. Signatures: Maryjane Schwab, TUBE AND ROD STRAIGHTENER-C TUBE AND ROD STRAIGHTENER-Csnw Sierra Prince RN RN [id number] Randi Young am2 Bishop Snyder RN RN as6 Josselin Lloyd RN RN vc1 Nayeli Ramos RN RN mb9 Anay Elaine rv1 Josselin Lloyd RN vc1 Corrections: (The following items were deleted from the chart) 04/29 21:45 21:45 Inserted saline lock: 20 gauge in left forearm, using aseptic technique. Blood rv1 collected. rv1
== END 2022-04-29 22:49 | disposition home or self-care (01) ==
LOC: ER 18:59
DX: L03.115 Cellulitis of right lower limb (principal); L02.415 Cutaneous abscess of right lower limb; I13.0 Hypertensive heart and chronic kidney disease with heart failure and stage 1 through stage 4 chronic kidney disease, or unspecified chronic kidney disease; N18.4 Chronic kidney disease, stage 4 (severe); I50.9 Heart failure, unspecified
CPT/HCPCS: 36415; 80053; 81003; 81015; 83605; 85025; 85610; 85730; 87040; 87070; 87077; 87186; 87205; 93005; 96374; J1815

== ENCOUNTER 2022-09-12 11:52 | Inpatient (IN) | payer SELFPAY ==
--- OUTSIDE RECORDS SUMMARY | 2022-09-12 12:10 | XMS REPORT | Continuity of Care Document ---
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 Route: l 13:00: NEB, Drug Form: SOLN, Dosing Weight 77.528, kg, ONCE, Start date: 02/08/16 7:00:00 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, Stop date: 02/08/16 7:00:00 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 Meperidine 2015-02 No Notes: Memor ia - [...] No Notes: SEE Me moria 0.83 MG/ML - RT l Inhalant 13:00: DOCUMENTAT Her izquierdo [...] Extra Strength) Morphine 2015-02 No Notes: Memoria 2- (Same l 13:00: as:MORPhin e Sulfate) Metoprolol 2015-02 No Notes: Memor ia 2- (Same as: l 13:00: Lopressor) Push over 2 minutes Flumazenil 2015-02 No Notes: Memor ia - (Same as: l 13:00: Romazicon) Ondansetron 2015-02 No Notes: Shin elton -21 (Same as: l 13:00: Zofran) MEDICATION WASTE Product Size: 4 mg Product Wasted: ___ mg Promethazin 2015-02 No 6.25 mg, Me moria e 04-10 50 mL, l 13:00: Route: IVPB, Drug form: SOLN, ONCE, Dosing Weight 77.528, kg, PRN Nausea & Vomiting, Start date: 02/08/16 7:00:00 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 Dexamethaso 2015-02 No Notes: Shin elton ne 04-10 Concentrat l 13:00: ion: 4mg/ml Midazolam 2015-02 No Notes: Memori a -21 (Same as: l 13:00: Versed) MEDICATION WASTE Product Size: 2 mg Product Wasted: ___ mg Lidocaine 2015-02 No 5 mL, Memoria 04-10 Route: l 13:00: NEB, Drug Form: SOLN, Dosing Weight 77.528, kg, ONCE, Start date: 02/08/16 7:00:00 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, Stop date: 02/08/16 7:00:00 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 Meperidine 2015-02 No Notes: Memor ia 2-21 [...] No Notes: SEE Me moria 0.83 MG/ML -21 RT l Inhalant 13:00: DOCUMENTAT Her izquierdo [...] Acetaminoph 2015-02 No Notes: Max Memoria en 2-21 acetaminop l 13:00: hen 4000 mg/day (4 [...] Nausea & Vomiting, Start date: 02/08/16 7:00:00 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 Dexamethaso 2015-02 No Notes: Shin elton ne - Concentrat l 13:00: ion: 4mg/ml Midazolam 2015-02 No Notes: Memori a 2-21 (Same as: l 13:00: Versed) MEDICATION WASTE Product Size: 2 mg Product Wasted: ___ mg Lidocaine 2015-02 No 5 mL, Memoria 04-10 Route: l 13:00: NEB, Drug Form: SOLN, Dosing Weight 77.528, kg, ONCE, Start date: 02/08/16 7:00:00 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, Stop date: 02/08/16 7:00:00 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 Meperidine 2015-02 No Notes: Memor ia - [...] No Notes: SEE Me moria 0.83 MG/ML - RT l Inhalant 13:00: DOCUMENTAT Her izquierdo [...] Extra Strength) Morphine 2015-02 No Notes: Memoria 2- (Same l 13:00: as:MORPhin e Sulfate) Metoprolol 2015-02 No Notes: Memor ia 2- (Same as: l 13:00: Lopressor) Push over 2 minutes Flumazenil 2015-02 No Notes: Memor ia 2-21 (Same as: l 13:00: Romazicon) Ondansetron 2015-02 No Notes: Shin elton - (Same as: l 13:00: Zofran) MEDICATION WASTE Product Size: 4 mg Product Wasted: ___ mg Promethazin 2015-02 No 6.25 mg, Me moria e 04-10 50 mL, l 13:00: Route: IVPB, Drug form: SOLN, ONCE, Dosing Weight 77.528, kg, PRN Nausea & Vomiting, Start date: 02/08/16 7:00:00 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 Dexamethaso 2015-02 No Notes: Shin elton ne 04-10 Concentrat l 13:00: ion: 4mg/ml Midazolam 2015-02 No Notes: Memori a - (Same as: l 13:00: Versed) MEDICATION WASTE Product Size: 2 mg Product Wasted: ___ mg Lidocaine 2015-02 No 5 mL, Memoria 04-10 Route: l 13:00: NEB, Drug Form: SOLN, Dosing Weight 77.528, kg, ONCE, Start date: 02/08/16 7:00:00 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, Stop date: 02/08/16 7:00:00 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 Meperidine 2015-02 No Notes: Memor ia 2-21 [...] en - acetaminop l 13:00: hen 4000 [place] 00 mg/day (4 gm/day). (Same as: Tylenol [...] Nausea & Vomiting, Start date: 02/08/16 7:00:00 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 Meperidine 2015-02 No Notes: Memor ia 2-21 (Same as: l 13:00: Demerol) "Use Precaution in Elderly, Seizure disorders, and Renal impairment " Diphenhydra 2015-02 No Notes: Shin elton mine 2-21 (Same as: l 13:00: Benadryl) Glycopyrrol 2015-02 No Notes: Shin elton ate 2-21 (Same as: l 13:00: Robinul) Naloxone 2015-02 No Notes: Memoria 2-21 Same as l 13:00: Narcan Dexamethaso 2015-02 No Notes: Shin elton ne 2-21 Concentrat l 13:00: ion: 4mg/ml Albuterol 2015-02 No Notes: SEE Me moria 0.83 MG/ML - RT l Inhalant 13:00: DOCUMENTAT Her izquierdo [...] Acetaminoph 2015-02 No Notes: Max Memoria en 2-21 acetaminop l 13:00: hen 4000 mg/day (4 [...] elton 2-21 (Same as: l 13:00: Zofran) [place] 00 MEDICATION WASTE Product Size: 4 mg Product Wasted: ___ mg Promethazin 2015-02 No 6.25 mg, Me moria e 2-21 50 mL, l 13:00: Route: Mikey 00 IVPB, Drug form: SOLN, ONCE, Dosing Weight 77.528, kg, PRN Nausea & Vomiting, Start date: 02/08/16 7:00:00 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 Midazolam 2015-02 No Notes: Memori a 2-21 (Same as: l 13:00: Versed) MEDICATION WASTE Product Size: 2 mg Product Wasted: ___ mg Dexamethaso 2015-02 No Notes: Shin elton ne 2-21 Concentrat l 13:00: ion: [place] 00 4mg/ml Midazolam 2015-02 No Notes: Memori a 2-21 (Same as: l 13:00: Versed) MEDICATION WASTE Product Size: 2 mg Product Wasted: ___ mg Lidocaine 2015-02 No 5 mL, Memoria 21 Route: l 13:00: NEB, Drug Form: SOLN, Dosing Weight 77.528, kg, ONCE, Start date: 02/08/16 7:00:00 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, Stop date: 02/08/16 7:00:00 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 Lidocaine 2015-02 No 5 mL, Memoria 04-10 Route: l 13:00: NEB, Drug Form: SOLN, Dosing Weight 77.528, kg, ONCE, Start date: 02/08/16 7:00:00 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, Stop date: 02/08/16 7:00:00 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 Meperidine 2015-02 No Notes: Memor ia 2-21 [...] No Notes: SEE Me moria 0.83 MG/ML - RT l Inhalant 13:00: DOCUMENTAT Her izquierdo [...] Nausea & Vomiting, Start date: 02/08/16 7:00:00 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 Dexamethaso 2015-02 No Notes: Shin elton ne 2-21 Concentrat l 13:00: ion: [place] 00 4mg/ml Midazolam 2015-02 No Notes: Memori a 2-21 (Same as: l 13:00: Versed) MEDICATION WASTE Product Size: 2 mg Product Wasted: ___ mg Lidocaine 2015-02 No 5 mL, Memoria 04-10 Route: l 13:00: NEB, Drug Form: SOLN, Dosing Weight 77.528, kg, ONCE, Start date: 02/08/16 7:00:00 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, Stop date: 02/08/16 7:00:00 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 Meperidine 2015-02 No Notes: Memor ia 2-21 [...] No Notes: SEE Me moria 0.83 MG/ML - RT l Inhalant 13:00: DOCUMENTAT Her izquierdo [...] 2-21 (Same as: l 13:00: Roxicodone ) Meperidine 2015-02 No Notes: Memor ia 2-21 [...] Nausea & Vomiting, Start date: 02/08/16 7:00:00 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 Dexamethaso 2015-02 No Notes: Shin elton ne 2-21 Concentrat l 13:00: ion: Mikey 00 4mg/ml Midazolam 2015-02 No Notes: Memori a 2-21 (Same as: l 13:00: Versed) MEDICATION WASTE Product Size: 2 mg Product Wasted: ___ mg Lidocaine 2015-02 No 5 mL, Memoria 2-21 Route: l 13:00: NEB, Drug Form: SOLN, Dosing Weight 77.528, kg, ONCE, Start date: 02/08/16 7:00:00 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, Stop date: 02/08/16 7:00:00 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 sodium 2015-02 No 1,000 mL, Memori a chloride 2-21 Rate: 40 l 0.9% 1000 12:52: ml/hr, Masood n ml INJ 00 Infuse 1,000 mL over: 25 hr, Route: IV, Dosing Weight 77.528 kg, Total Volume: 1,000, Start date: 02/08/16 6:52:00 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, Duration: 1 doses or times, Stop date: 02/09/16 7:51:00 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 sodium 2015-02 No 1,000 mL, Memori a chloride 2-21 Rate: 40 l 0.9% 1000 12:52: ml/hr, Masood n ml INJ 00 Infuse 1,000 mL over: 25 hr, Route: IV, Dosing Weight 77.528 kg, Total Volume: 1,000, Start date: 02/08/16 6:52:00 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, Duration: 1 doses or times, Stop date: 02/09/16 7:51:00 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 sodium 2015-02 No 1,000 mL, Memori a chloride 2-21 Rate: 40 l 0.9% 1000 12:52: ml/hr, Masood n ml INJ 00 Infuse 1,000 mL over: 25 hr, Route: IV, Dosing Weight 77.528 kg, Total Volume: 1,000, Start date: 02/08/16 6:52:00 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, Duration: 1 doses or times, Stop date: 02/09/16 7:51:00 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 sodium 2016-1 No 1,000 mL, Memori a chloride 2-21 Rate: 40 l 0.9% 1000 12:52: ml/hr, Masood n ml INJ 00 Infuse 1,000 mL over: 25 hr, Route: IV, Dosing Weight 77.528 kg, Total Volume: 1,000, Start date: 02/08/16 6:52:00 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, Duration: 1 doses or times, Stop date: 02/09/16 7:51:00 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 sodium 2016-1 No 1,000 mL, Memori a chloride 2-21 Rate: 40 l 0.9% 1000 12:52: ml/hr, Masood n ml INJ 00 Infuse 1,000 mL over: 25 hr, Route: IV, Dosing Weight 77.528 kg, Total Volume: 1,000, Start date: 02/08/16 6:52:00 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, Duration: 1 doses or times, Stop date: 02/09/16 7:51:00 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 sodium 2016-1 No 1,000 mL, Memori a chloride 2-21 Rate: 40 l 0.9% 1000 12:52: ml/hr, Masood n ml INJ 00 Infuse 1,000 mL over: 25 hr, Route: IV, Dosing Weight 77.528 kg, Total Volume: 1,000, Start date: 02/08/16 6:52:00 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, Duration: 1 doses or times, Stop date: 02/09/16 7:51:00 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 sodium 2016-1 No 1,000 mL, Memori a chloride 2-21 Rate: 40 l 0.9% 1000 12:52: ml/hr, Masood n ml INJ 00 Infuse 1,000 mL over: 25 hr, Route: IV, Dosing Weight 77.528 kg, Total Volume: 1,000, Start date: 02/08/16 6:52:00 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, Duration: 1 doses or times, Stop date: 02/09/16 7:51:00 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 sodium 2016-1 No 1,000 mL, Memori a chloride 2-21 Rate: 40 l 0.9% 1000 12:52: ml/hr, Masood n ml INJ 00 Infuse 1,000 mL over: 25 hr, Route: IV, Dosing Weight 77.528 kg, Total Volume: 1,000, Start date: 02/08/16 6:52:00 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, Duration: 1 doses or times, Stop date: 02/09/16 7:51:00 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 azithromyci 2015-02 No Notes: Shin elton n [...] Perles 2-20 (Same As: l 04:00: Tessalon Mikey 00 Perles) "Do Not Crush" Tessalon 2015-02 No Notes: Memoria Perles 2-20 (Same As: l 04:00: Tessalon [place] 00 Perles) "Do Not Crush" Tessalon 2015-02 No Notes: Memoria Perles 2-20 (Same As: l 04:00: Tessalon Mikey 00 Perles) "Do Not Crush" Tessalon 2015-02 No Notes: Memoria Perles 2-20 (Same As: l 04:00: Tessalon Mikey 00 Perles) "Do Not Crush" Tessalon 2015-02 No Notes: Memoria Perles 2-20 (Same As: l 04:00: Tessalon [place] 00 Perles) "Do Not Crush" Tessalon 2015-02 No Notes: Memoria Perles 2-20 (Same As: l 04:00: Tessalon Mikey 00 Perles) "Do Not Crush" Tessalon 2015-02 No Notes: Memoria Perles 2-20 (Same As: l 04:00: Tessalon [place] 00 Perles) "Do Not Crush" Tessalon 2016 No Notes: Memoria Perles 2-20 (Same As: l 04:00: Tessalon [place] 00 Perles) "Do Not Crush" metoprolol 2015-02 No Notes: Memor ia tartrate 2-20 (Same as: l 03:00: Lopressor) Mikey 00 Levemir 2015-02 No Notes: Memoria FlexPen 2-20 Same as l 03:00: Levemir Do [place] 00 not hold insulin without contacting prescriber WASTE: F/P - Black; E - Municipal Trash Bin "single patient use only" metoprolol 2015-02 No Notes: Memor ia tartrate 2-20 (Same as: l 03:00: Lopressor) Mikey Levemir 2015-02 No Notes: Memoria FlexPen 2-20 Same as l 03:00: Levemir Do Mikey 00 not hold insulin without contacting prescriber WASTE: F/P - Black; E - Municipal Trash Bin "single patient use only" metoprolol 2015-02 No Notes: Memor ia tartrate 2-20 (Same as: l 03:00: Lopressor) [place] Levemir 2015-02 No Notes: Memoria FlexPen 2-20 Same as l 03:00: Levemir Do Mikey 00 not hold insulin without contacting prescriber WASTE: F/P - Black; E - Municipal Trash Bin "single patient use only" metoprolol 2015-02 No Notes: Memor ia tartrate 2-20 (Same as: l 03:00: Lopressor) [place] Levemir 2015-02 No Notes: Memoria FlexPen 2-20 Same as l 03:00: Levemir Do Mikey 00 not hold insulin without contacting prescriber WASTE: F/P - Black; E - Municipal Trash Bin "single patient use only" metoprolol 2015-02 No Notes: Memor ia tartrate 2-20 (Same as: l 03:00: Lopressor) [place] 00 Levemir 2015-02 No Notes: Memoria FlexPen 2-20 Same as l 03:00: Levemir Do [place] 00 not hold insulin without contacting prescriber WASTE: F/P - Black; E - Municipal Trash Bin "single patient use only" metoprolol 2015-02 No Notes: Memor ia tartrate 2-20 (Same as: l 03:00: Lopressor) [place] 00 Levemir 2015-02 No Notes: Memoria FlexPen 2-20 Same as l 03:00: Levemir Do [place] 00 not hold insulin without contacting prescriber WASTE: F/P - Black; E - Municipal Trash Bin "single patient use only" metoprolol 2015-02 No Notes: Memor ia tartrate 2-20 (Same as: l 03:00: Lopressor) [place] Levemir 2015-02 No Notes: Memoria FlexPen 2-20 Same as l 03:00: Levemir Do [place] 00 not hold insulin without contacting prescriber WASTE: F/P - Black; E - Municipal Trash Bin "single patient use only" metoprolol 2015-02 No Notes: Memor ia tartrate 2-20 (Same as: l 03:00: Lopressor) Mikey Levemir 2015-02 No Notes: Memoria FlexPen 2-20 Same as l 03:00: Levemir Do [place] 00 not hold insulin without contacting prescriber WASTE: F/P - Black; E - Municipal Trash Bin "single patient use only" Protonix 2015-02 No Notes: For Mem oria 2-19 IV push l 22:30: reconstitu Mikey 00 te with 10 ml 0.9% sodium chloride and push over 2 minutes. (Same as: Protonix) Protonix 2015-02 No Notes: For Mem oria 2-19 IV push l 22:30: reconstitu [place] 00 te with 10 ml 0.9% sodium chloride and push over 2 minutes. (Same as: Protonix) Protonix 2015-02 No Notes: For Mem oria 2-19 IV push l 22:30: reconstitu [place] 00 te with 10 ml 0.9% sodium chloride and push over 2 minutes. (Same as: Protonix) Protonix 2015-02 No Notes: For Mem oria 2-19 IV push l 22:30: reconstitu Mikey 00 te with 10 ml 0.9% sodium chloride and push over 2 minutes. (Same as: Protonix) Protonix 2015-02 No Notes: For Mem oria 2-19 IV push l 22:30: reconstitu [place] 00 te with 10 ml 0.9% sodium chloride and push over 2 minutes. (Same as: Protonix) Protonix 2015-02 No Notes: For Mem oria 2-19 IV push l 22:30: reconstitu Mikey 00 te with 10 ml 0.9% sodium chloride and push over 2 minutes. (Same as: Protonix) Protonix 2015-02 No Notes: For Mem oria 2-19 IV push l 22:30: reconstitu [place] 00 te with 10 ml 0.9% sodium chloride and push over 2 minutes. (Same as: Protonix) Protonix 2015-02 No Notes: For Mem oria 2-19 IV push l 22:30: reconstitu [place] 00 te with 10 ml 0.9% sodium chloride and push over 2 minutes. (Same as: Protonix) Hydralazine 2015-02 No Notes: Shin elton 2-19 (Same as: l 21:03: Apresoline [place] 00 ) Push over 5 minutes Hydralazine 2015-02 No Notes: Shin elton 2-19 (Same as: l 21:03: Apresoline [place] 00 ) Push over 5 minutes Hydralazine 2015-02 No Notes: Shin elton 2-19 (Same as: l 21:03: Apresoline [place] 00 ) Push over 5 minutes Hydralazine 2015-02 No Notes: Shin elton 2-19 (Same as: l 21:03: Apresoline [place] 00 ) Push over 5 minutes Hydralazine 2015-02 No Notes: Shin elton 2-19 (Same as: l 21:03: Apresoline [place] 00 ) Push over 5 minutes Hydralazine 2015-02 No Notes: Shin elton 2-19 (Same as: l 21:03: Apresoline Mikey 00 ) Push over 5 minutes Hydralazine 2015-02 No Notes: Shin elton 2-19 (Same as: l 21:03: Apresoline Mikey 00 ) Push over 5 minutes Hydralazine 2015-02 No Notes: Shin elton 2-19 (Same as: l 21:03: Apresoline Mikey 00 ) Push over 5 minutes Robitussin- 2015-02 No Notes: Shin elton AC oral 2-19 (Same As: l syrup 21:01: Robitussin Masood n 00 AC) Robitussin2015-02 No Notes: Shin elton AC oral 2-19 (Same As: l syrup 21:01: Robitussin Masood n 00 AC) Robitussin2015-02 No Notes: Shin elton AC oral 2-19 (Same As: l syrup 21:01: Robitussin Masood n 00 AC) Robitussin- 2015-02 No Notes: Shin elton AC oral 2-19 (Same As: l syrup 21:01: Robitussin Masood n 00 AC) Robitussin- 2015-02 No Notes: Shin elton AC oral 2-19 (Same As: l syrup 21:01: Robitussin Masood n 00 AC) Robitussin2015-02 No Notes: Shin elton AC oral 2-19 (Same As: l syrup 21:01: Robitussin Masood n 00 AC) Robitussin2015-02 No Notes: Shin elton AC oral 2-19 (Same As: l syrup 21:01: Robitussin Masood n 00 AC) itussin2015-02 No Notes: Shin elton AC oral 2-19 (Same As: l syrup 21:01: Robitussin Masood n 00 AC) Insulin, 2015-02 No Notes: Memoria Aspart, 2-19 Roll in l Human 20:51: palms of [place] 00 hands gently; Do not shake vigorously [...] Blood Glucose Results, Start date: 02/06/16 14:51:00 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, Duration: 30 day, Stop date: 03/07/16 14:50:00 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 Dextrose 2015-02 No 25 gm, 50 Shin el[place] 50% Syringe 2-19 mL, Route: l 20:51: IVP, Drug Form: INJ, Dosing Weight 80.455, kg, PRN, PRN Blood Glucose Results, Start date: 02/06/16 14:51:00 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, Duration: 30 day, Stop date: 03/07/16 14:50:00 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 Insulin, 2015-02 No Notes: Memoria Aspart, 2-19 [...] 2-19 Route: IM, l 20:51: Drug form: [place] 00 PDR/INJ, PRN, Dosing Weight 80.455, kg, PRN Blood Glucose Results, Start date: 02/06/16 14:51:00 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, Duration: 30 day, Stop date: 03/07/16 14:50:00 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 Dextrose 2015-02 No 25 gm, 50 Hsin elton 50% Syringe 2-19 mL, Route: l 20:51: IVP, Drug 00 Form: INJ, Dosing Weight 80.455, kg, PRN, PRN Blood Glucose Results, Start date: 02/06/16 14:51:00 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, Duration: 30 day, Stop date: 03/07/16 14:50:00 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 Insulin, 2015-02 No Notes: Memoria Aspart, 2-19 [...] 2-19 Route: IM, l 20:51: Drug form: [place] 00 PDR/INJ, PRN, Dosing Weight 80.455, kg, PRN Blood Glucose Results, Start date: 02/06/16 14:51:00 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 (Same as: NovoLOG) "single patient use only" WASTE: F/P - Black; E - Municipal Trash Bin Stable for 28 days at room temperatur e. 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, Duration: 30 day, Stop date: 03/07/16 14:50:00 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 Insulin, 2015-02 No Notes: Memoria Aspart, 2-19 [...] Blood Glucose Results, Start date: 02/06/16 14:51:00 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 (Same as: NovoLOG) "single patient use only" WASTE: F/P - Black; E - Municipal Trash Bin Stable for 28 days at room temperatur e. 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, Duration: 30 day, Stop date: 03/07/16 14:50:00 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 Insulin, 2015-02 No Notes: Memoria Aspart, 2-19 [...] Blood Glucose Results, Start date: 02/06/16 14:51:00 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 (Same as: NovoLOG) "single patient use only" WASTE: F/P - Black; E - [employer] Trash Bin Stable for 28 days at room temperatur e. 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 Dextrose 2015-02 No 25 gm, 50 [place] 50% Syringe 2-19 mL, Route: l 20:51: IVP, Drug [place] 00 Form: INJ, Dosing Weight 80.455, kg, PRN, PRN Blood Glucose Results, Start date: 02/06/16 14:51:00 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, Duration: 30 day, Stop date: 03/07/16 14:50:00 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 Ceftriaxone 2015-02 No Notes: [place] 2-19 (Same As: l 20:00: Rocephin). Mikey 00 Use with 100 mL NS and infuse over 30 min MEDICATION WASTE Product Size: 2000 mg Product Wasted: ___ mg Azithromyci 2015-02 No Notes: [place] n 2-19 (Same As: l 20:00: Zithromax Mikey 00 IV) Ceftriaxone 2015-02 No Notes: [place] 2-19 (Same As: l 20:00: Rocephin). Mikey 00 Use with 100 mL NS and infuse over 30 min MEDICATION WASTE Product Size: 2000 mg Product Wasted: ___ mg Azithromyci 2015-02 No Notes: [place] n 2-19 (Same As: l 20:00: Zithromax Mikey 00 IV) Ceftriaxone 2015-02 No Notes: [place] 2-19 (Same As: l 20:00: Rocephin). Mikey 00 Use with 100 mL NS and infuse over 30 min MEDICATION WASTE Product Size: 2000 mg Product Wasted: ___ mg Azithromyci 2015-02 No Notes: [place] n 2-19 (Same As: l 20:00: Zithromax [place] 00 IV) Ceftriaxone 2015-02 No Notes: [place] 2-19 (Same As: l 20:00: Rocephin). [place] 00 Use with 100 mL NS and infuse over 30 min MEDICATION WASTE Product Size: 2000 mg Product Wasted: ___ mg Azithromyci 2015-02 No Notes: [place] n 2-19 (Same As: l 20:00: Zithromax [place] 00 IV) Ceftriaxone 2015-02 No Notes: [place] 2-19 (Same As: l 20:00: Rocephin). Mikey 00 Use with 100 mL NS and infuse over 30 min MEDICATION WASTE Product Size: 2000 mg Product Wasted: ___ mg Azithromyci 2015-02 No Notes: Shin elton n 2-19 (Same As: l 20:00: Zithromax [place] 00 IV) Ceftriaxone 2015-02 No Notes: Shin elton 2-19 (Same As: l 20:00: Rocephin). Mikey 00 Use with 100 mL NS and infuse over 30 min MEDICATION WASTE Product Size: 2000 mg Product Wasted: ___ mg Azithromyci 2015-02 No Notes: Shin elton n 2-19 (Same As: l 20:00: Zithromax [place] 00 IV) Ceftriaxone 2015-02 No Notes: Shin elton 2-19 (Same As: l 20:00: Rocephin). [place] 00 Use with 100 mL NS and infuse over 30 min MEDICATION WASTE Product Size: 2000 mg Product Wasted: ___ mg Azithromyci 2015-02 No Notes: Shin elton n 2-19 (Same As: l 20:00: Zithromax Mikey 00 IV) Ceftriaxone 2015-02 No Notes: Shin elton 2-19 (Same As: l 20:00: Rocephin). Mikey 00 Use with 100 mL NS and infuse over 30 min MEDICATION WASTE Product Size: 2000 mg Product Wasted: ___ mg Azithromyci 2015-02 No Notes: Shin elton n 2-19 (Same As: l 20:00: Zithromax [place] 00 IV) Saline 2015-02 No Notes: Memoria Flush 0.9% - (Same as: l 19:17: BD [place] 00 Posiflush) Sodium 2015-02 No 1,000 mL, Memori a Chloride -19 Rate: 100 l 0.154 19:17: ml/hr, [place] MEQ/ML 00 Infuse Injectable over: 10 Solution hr, Route: IV, Dosing Weight 80.455 kg, Total Volume: 1,000, Start date: 02/06/16 13:17:00 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, Duration: 30 day, Stop date: 03/07/16 13:16:00 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 Acetaminoph 2015-02 No Notes: Do M emoria en -19 not exceed l 19:17: 4 gm/day. [place] 00 (Same as: Tylenol) Acetaminoph 2015-02 No Notes: Shin elton en 325 MG / - (Same as: l Hydrocodone 19:17: [place] Venecia nn Bitartrate 00 325/5) Do 5 MG Oral not exceed Tablet 4gm/day of acetaminop hen. Morphine 2015-02 No Notes: Memoria 2-19 (Same l 19:17: as:MORPhin [place] 00 e Sulfate) Docusate 2015-02 No Notes: Memoria 2-19 (Same as: l 19:17: Colace) [place] 00 (Do Not Crush) Ondansetron 2015-02 No Notes: Shin elton 2-19 (Same as: l 19:17: Zofran) Mikey 00 MEDICATION WASTE Product Size: 4 mg Product Wasted: ___ mg Saline 2015-02 No Notes: Memoria Flush 0.9% 2-19 (Same as: l 19:17: BD [place]key 00 Posiflush) Sodium 2015-02 No 1,000 mL, Memori a Chloride - Rate: 100 l 0.154 19:17: ml/hr, Mikey MEQ/ML 00 Infuse Injectable over: 10 Solution hr, Route: IV, Dosing Weight 80.455 kg, Total Volume: 1,000, Start date: 02/06/16 13:17:00 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, Duration: 30 day, Stop date: 03/07/16 13:16:00 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 Acetaminoph 2015-02 No Notes: Do M emoria en 2-19 not exceed l 19:17: 4 gm/day. [place] 00 (Same as: Tylenol) Acetaminoph 2015-02 No Notes: Shin elton en 325 MG / 2-19 (Same as: l Hydrocodone 19:17: [place] Venecia nn Bitartrate 00 325/5) Do 5 MG Oral not exceed Tablet 4gm/day of acetaminop hen. Morphine 2015-02 No Notes: Memoria 2-19 (Same l 19:17: as:MORPhin [place] 00 e Sulfate) Docusate 2015-02 No Notes: Memoria 2-19 (Same as: l 19:17: Colace) [place] 00 (Do Not Crush) Ondansetron 2015-02 No Notes: Shin elotn 2-19 (Same as: l 19:17: Zofran) Mikey 00 MEDICATION WASTE Product Size: 4 mg Product Wasted: ___ mg Saline 2015-02 No Notes: Memoria Flush 0.9% 2-19 (Same as: l 19:17: BD [place] 00 Posiflush) Sodium 2015-02 No 1,000 mL, Memori a Chloride 2-19 Rate: 100 l 0.154 19:17: ml/hr, [place] MEQ/ML 00 Infuse Injectable over: 10 Solution hr, Route: IV, Dosing Weight 80.455 kg, Total Volume: 1,000, Start date: 02/06/16 13:17:00 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, Duration: 30 day, Stop date: 03/07/16 13:16:00 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 Acetaminoph 2015-02 No Notes: Do M emoria en 2-19 not exceed l 19:17: 4 gm/day. Mikey 00 (Same as: Tylenol) Acetaminoph 2015-02 No Notes: Shin elton en 325 MG / 2-19 (Same as: l Hydrocodone 19:17: [place] Venecia nn Bitartrate 00 325/5) Do 5 MG Oral not exceed Tablet 4gm/day of acetaminop hen. Morphine 2015-02 No Notes: Memoria 2-19 (Same l 19:17: as:MORPhin [place] 00 e Sulfate) Docusate 2015-02 No Notes: Memoria 2-19 (Same as: l 19:17: Colace) Mikey 00 (Do Not Crush) Ondansetron 2015-02 No Notes: Shin elton 2-19 (Same as: l 19:17: Zofran) [place] 00 MEDICATION WASTE Product Size: 4 mg Product Wasted: ___ mg Saline 2015-02 No Notes: Memoria Flush 0.9% 2-19 (Same as: l 19:17: BD [place] 00 Posiflush) Sodium 2015-02 No 1,000 mL, Memori a Chloride 2-19 Rate: 100 l 0.154 19:17: ml/hr, Mikey MEQ/ML 00 Infuse Injectable over: 10 Solution hr, Route: IV, Dosing Weight 80.455 kg, Total Volume: 1,000, Start date: 02/06/16 13:17:00 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, Duration: 30 day, Stop date: 03/07/16 13:16:00 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 Acetaminoph 2015-02 No Notes: Do M emoria en 2-19 not exceed l 19:17: 4 gm/day. [place] 00 (Same as: Tylenol) Acetaminoph 2015-02 No Notes: Shin elton en 325 MG / 2-19 (Same as: l Hydrocodone 19:17: [place] Venecia nn Bitartrate 00 325/5) Do 5 MG Oral not exceed Tablet 4gm/day of acetaminop hen. Morphine 2015-02 No Notes: Memoria 2-19 (Same l 19:17: as:MORPhin [place]key 00 e Sulfate) Docusate 2015-02 No Notes: Memoria 2-19 (Same as: l 19:17: Colace) [place] 00 (Do Not Crush) Ondansetron 2015-02 No Notes: Shin elton 2-19 (Same as: l 19:17: Zofran) [place] 00 MEDICATION WASTE Product Size: 4 mg Product Wasted: ___ mg Saline 2015-02 No Notes: Memoria Flush 0.9% 04-08 (Same as: l 19:17: BD [place] 00 Posiflush) Sodium 2015-02 No 1,000 mL, Memori a Chloride 04-08 Rate: 100 l 0.154 19:17: ml/hr, [place] MEQ/ML 00 Infuse Injectable over: 10 Solution hr, Route: IV, Dosing Weight 80.455 kg, Total Volume: 1,000, Start date: 02/06/16 13:17:00 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, Duration: 30 day, Stop date: 03/07/16 13:16:00 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 Acetaminoph 2015-02 No Notes: Do M emoria en -19 not exceed l 19:17: 4 gm/day. [place]key 00 (Same as: Tylenol) Acetaminoph 2015-02 No Notes: Shin elton en 325 MG / -19 (Same as: l Hydrocodone 19:17: [place] Venecia nn Bitartrate 00 325/5) Do 5 MG Oral not exceed Tablet 4gm/day of acetaminop hen. Morphine 2015-02 No Notes: Memoria 2-19 (Same l 19:17: as:MORPhin [place] 00 e Sulfate) Docusate 2015-02 No Notes: Memoria 2-19 (Same as: l 19:17: Colace) [place] 00 (Do Not Crush) Ondansetron 2015-02 No Notes: Shin elton 2-19 (Same as: l 19:17: Zofran) [place] 00 MEDICATION WASTE Product Size: 4 mg Product Wasted: ___ mg Saline 2015-02 No Notes: Memoria Flush 0.9% 2-19 (Same as: l 19:17: BD [place] 00 Posiflush) Sodium 2015-02 No 1,000 mL, Memori a Chloride 2-19 Rate: 100 l 0.154 19:17: ml/hr, Mikey MEQ/ML 00 Infuse Injectable over: 10 Solution hr, Route: IV, Dosing Weight 80.455 kg, Total Volume: 1,000, Start date: 02/06/16 13:17:00 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, Duration: 30 day, Stop date: 03/07/16 13:16:00 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 Acetaminoph 2015-02 No Notes: Do M emoria en 2-19 not exceed l 19:17: 4 gm/day. [place] 00 (Same as: Tylenol) Acetaminoph 2015-02 No Notes: Shin elton en 325 MG / 2-19 (Same as: l Hydrocodone 19:17: [place] Venecia nn Bitartrate 00 325/5) Do 5 MG Oral not exceed Tablet 4gm/day of acetaminop hen. Morphine 2015-02 No Notes: Memoria 2-19 (Same l 19:17: as:MORPhin [place] 00 e Sulfate) Docusate 2015-02 No Notes: Memoria 2-19 (Same as: l 19:17: Colace) [place]key 00 (Do Not Crush) Ondansetron 2015-02 No [...] Total Volume: 1,000, Start date: 02/06/16 13:17:00 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, Duration: 30 day, Stop date: 03/07/16 13:16:00 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 Acetaminoph 2015-02 No Notes: Do M emoria en 2-19 not exceed l 19:17: 4 gm/day. [place] 00 (Same as: Tylenol) Acetaminoph 2015-02 No Notes: Shin elton en 325 MG / 2-19 (Same as: l Hydrocodone 19:17: [place] Venecia nn Bitartrate 00 325/5) Do 5 MG Oral not exceed Tablet 4gm/day of acetaminop hen. Morphine 2015-02 No Notes: Memoria 2-19 (Same l 19:17: as:MORPhin [place] 00 e Sulfate) Docusate 2015-02 No Notes: Memoria 2-19 (Same as: l 19:17: Colace) [place] 00 (Do Not Crush) Ondansetron 2015-02 No Notes: Shin elton 2-19 (Same as: l 19:17: Zofran) [place] 00 MEDICATION WASTE Product Size: 4 mg Product Wasted: ___ mg Saline 2015-02 No Notes: Memoria Flush 0.9% - (Same as: l 19:17: BD [place] 00 Posiflush) Sodium 2015-02 No 1,000 mL, Memori a Chloride -19 Rate: 100 l 0.154 19:17: ml/hr, Mikey MEQ/ML 00 Infuse Injectable over: 10 Solution hr, Route: IV, Dosing Weight 80.455 kg, Total Volume: 1,000, Start date: 02/06/16 13:17:00 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, Duration: 30 day, Stop date: 03/07/16 13:16:00 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 Acetaminoph 2015-02 No Notes: Do M emoria en 2-19 not exceed l 19:17: 4 gm/day. [place] 00 (Same as: Tylenol) Acetaminoph 2015-02 No Notes: Shin elton en 325 MG / -19 (Same as: l Hydrocodone 19:17: [place] Venecia nn Bitartrate 00 325/5) Do 5 MG Oral not exceed Tablet 4gm/day of acetaminop hen. Morphine 2015-02 No Notes: Memoria 2-19 (Same l 19:17: as:MORPhin [place] 00 e Sulfate) Docusate 2015-02 No Notes: Memoria 2-19 (Same as: l 19:17: Colace) [place] 00 (Do Not Crush) Ondansetron 2015-02 No Notes: Shin elton 2-19 (Same as: l 19:17: Zofran) [place] 00 MEDICATION WASTE Product Size: 4 mg Product Wasted: ___ mg Fentanyl 2015-02 No Notes: Memoria 2-19 (Same as: l 17:47: Sublimaze) [place] 00 Preservati ve free. Fentanyl 2015-02 No Notes: Memoria 2-19 (Same as: l 17:47: Sublimaze) [place]key 00 Preservati ve free. Fentanyl 2015-02 No Notes: Memoria 2-19 (Same as: l 17:47: Sublimaze) [place] 00 Preservati ve free. Fentanyl 2015-02 No Notes: Memoria 2-19 (Same as: l 17:47: Sublimaze) [place] 00 Preservati ve free. Fentanyl 2015-02 No Notes: Memoria 2-19 (Same as: l 17:47: Sublimaze) [place] 00 Preservati ve free. Fentanyl 2015-02 No Notes: Memoria 2-19 (Same as: l 17:47: Sublimaze) [place] 00 Preservati ve free. Fentanyl 2015-02 No Notes: Memoria 2-19 (Same as: l 17:47: Sublimaze) Imkey 00 Preservati ve free. Fentanyl 2015-02 No [...] l Oral Tablet 13:10: Q24H, X 10 [place] [Levaquin] 00 day, # 10 tab, 0 [...] l Oral Tablet 13:10: Q24H, X 10 [place] [Levaquin] day, # 10 tab, 0 Refill(s) [...] l Oral Tablet 13:10: Q24H, X 10 [place] [Levaquin] 00 day, # 10 tab, 0 Refill(s) benzonatate 2015-02 Yes 200 mg = 1 Memoria 200 MG Oral 2-19 cap, PO, l Capsule 13:10: TID, X 7 Masood n [Tessalon] 00 day, # 21 cap, 0 Refill(s) 200 ACTUAT 2015-02 Yes 2 puff, Hsin elton Albuterol 2-19 INHALATION l 0.09 13:10: , QID, PRN [place] MG/ACTUAT 00 for Metered wheezing / Dose [...] Tablet 13:10: Q24H, X 10 Mikey [Levaquin] day, # 10 tab, 0 Refill(s) benzonatate 2015-02 Yes 200 mg = 1 Memoria 200 MG Oral 2-19 cap, PO, l Capsule 13:10: TID, X 7 Masood n [Tessalon] day, # 21 cap, 0 Refill(s) 200 [...] Tablet 13:10: Q24H, X 10 Mikey [Levaquin] day, # 10 tab, 0 Refill(s) [...] coughing, Inhaler # 25 gm, 0 Refill(s) 200 ACTUAT 2015-02 Yes 2 puff, Shin elton Albuterol 2-19 INHALATION l 0.09 13:10: , QID, PRN [place] MG/ACTUAT 00 for Metered wheezing / Dose coughing, Inhaler # 25 gm, 0 Refill(s) Codeine 2015-02 No 10 ml, PO, Shin elton Phosphate 2 2-19 Q4H, PRN l MG/ML / 13:10: for cough, Herm vonnie Guaifenesin 00 X 5 day, # 20 MG/ML 300 mL, 0 Oral Refill(s) Solution [Cheratussi n] Codeine 2015-02 No 10 ml, PO, Shin [...] 00 day, # 21 cap, 0 Refill(s) Levofloxaci 2015-02 Yes 750 mg = 1 Memoria n 750 MG 2-19 tab, PO, l Oral Tablet 13:10: Q24H, X 10 [place] [Levaquin] 00 day, # 10 tab, 0 [...] mg = 1 Memoria 200 MG Oral -19 cap, PO, l Capsule 13:10: TID, X 7 Masood n [Tessalon] 00 day, # 21 cap, 0 Refill(s) Levaquin 2015-02 No Notes: Memoria 2-19 (Same l 11:55: as:Levaqui [place]key 00 n) Levaquin 2015-02 No Notes: Memoria 2-19 (Same l 11:55: as:Levaqui [place] n) Levaquin 2015-02 No Notes: Memoria 2-19 (Same l 11:55: as:Levaqui [place] 00 n) Levaquin 2015-02 No Notes: Memoria 2-19 (Same l 11:55: as:Levaqui [place] 00 n) Levaquin 2015-02 No Notes: Memoria 2-19 (Same l 11:55: as:Levaqui [place] 00 n) Levaquin 2015-02 No Notes: Memoria 2-19 (Same l 11:55: as:Levaqui [place] 00 n) Levaquin 2015-02 No Notes: Memoria 2-19 (Same l 11:55: as:Levaqui [place] 00 n) Levaquin 2015- No Notes: Memoria 2-19 (Same l 11:55: as:Myra Jensen 00 n) Sodium 2015-02 No 1,000 mL, Memori a Chloride 2-19 1,000 l 0.154 11:34: ml/hr, Mikey MEQ/ML 00 Infuse Injectable Over: 1 Solution hr, Route: IV, 1,000, Drug form: INJ, ONCE, Priority: STAT, Dosing Weight 80.455 kg, Start date: 02/06/16 5:34:00 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, Duration: 1 doses or times, Stop date: 02/06/16 5:34:00 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 Sodium 2015-02 No 1,000 mL, Memori a Chloride 2-19 1,000 l 0.154 11:34: ml/hr, [place] MEQ/ML 00 Infuse Injectable Over: 1 Solution hr, Route: IV, 1,000, Drug form: INJ, ONCE, Priority: STAT, Dosing Weight 80.455 kg, Start date: 02/06/16 5:34:00 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, Duration: 1 doses or times, Stop date: 02/06/16 5:34:00 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 Sodium 2015-02 No 1,000 mL, Memori a Chloride 2-19 1,000 l 0.154 11:34: ml/hr, Mikey MEQ/ML 00 Infuse Injectable Over: 1 Solution hr, Route: IV, 1,000, Drug form: INJ, ONCE, Priority: STAT, Dosing Weight 80.455 kg, Start date: 02/06/16 5:34:00 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, Duration: 1 doses or times, Stop date: 02/06/16 5:34:00 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 Sodium 2015- No 1,000 mL, Memori a Chloride 2-19 1,000 l 0.154 11:34: ml/hr, [place] MEQ/ML 00 Infuse Injectable Over: 1 Solution hr, Route: IV, 1,000, Drug form: INJ, ONCE, Priority: STAT, Dosing Weight 80.455 kg, Start date: 02/06/16 5:34:00 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, Duration: 1 doses or times, Stop date: 02/06/16 5:34:00 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 Sodium 2015-02 No 1,000 mL, Memori a Chloride 2-19 1,000 l 0.154 11:34: ml/hr, Mikey MEQ/ML 00 Infuse Injectable Over: 1 Solution hr, Route: IV, 1,000, Drug form: INJ, ONCE, Priority: STAT, Dosing Weight 80.455 kg, Start date: 02/06/16 5:34:00 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, Duration: 1 doses or times, Stop date: 02/06/16 5:34:00 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 Sodium 2015-02 No 1,000 mL, Memori a Chloride 2-19 1,000 l 0.154 11:34: ml/hr, Mikey MEQ/ML 00 Infuse Injectable Over: 1 Solution hr, Route: IV, 1,000, Drug form: INJ, ONCE, Priority: STAT, Dosing Weight 80.455 kg, Start date: 02/06/16 5:34:00 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, Duration: 1 doses or times, Stop date: 02/06/16 5:34:00 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 Sodium 2015-02 No 1,000 mL, Memori a Chloride 2-19 1,000 l 0.154 11:34: ml/hr, Mikey MEQ/ML 00 Infuse Injectable Over: 1 Solution hr, Route: IV, 1,000, Drug form: INJ, ONCE, Priority: STAT, Dosing Weight 80.455 kg, Start date: 02/06/16 5:34:00 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, Duration: 1 doses or times, Stop date: 02/06/16 5:34:00 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 Sodium 2015-02 No 1,000 mL, Memori a Chloride 2-19 1,000 l 0.154 11:34: ml/hr, Mikey MEQ/ML 00 Infuse Injectable Over: 1 Solution hr, Route: IV, 1,000, Drug form: INJ, ONCE, Priority: STAT, Dosing Weight 80.455 kg, Start date: 02/06/16 5:34:00 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, Duration: 1 doses or times, Stop date: 02/06/16 5:34:00 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 Acetaminoph 2015-02 No Notes: Do M emoria [...] with with Codeine #3] [facility]) [facility] No Notes: Do M emoria en 300 MG / 2-19 not exceed l Codeine 10:53: 4gm/day of Herm vonnie Phosphate 00 acetaminop 30 MG Oral hen. (Same Tablet as: [Tylenol Tylenol with with Codeine #3] Codeine # 3) [facility] No Notes: Do M emoria en 300 MG / 2-19 not exceed l Codeine 10:53: 4gm/day of Herm vonnie Phosphate 00 acetaminop 30 MG Oral hen. (Same Tablet as: [Tylenol Tylenol with with Codeine #3] Codeine # 3) [facility] 2015-02 No Notes: Do M emoria en 300 MG / 2-19 not exceed l Codeine 10:53: 4gm/day of Herm vonnie Phosphate 00 acetaminop 30 MG Oral hen. (Same Tablet as: [Tylenol Tylenol with with Codeine #3] Codeine # 3) [facility] 2015-02 No Notes: Do M emoria en 300 MG / 2-19 not exceed l Codeine 10:53: 4gm/day of Herm vonnie Phosphate 00 acetaminop 30 MG Oral hen. (Same Tablet as: [Tylenol Tylenol with with Codeine #3] Codeine # 3) [facility] 2015-02 No Notes: Do M emoria en 300 MG / 2-19 not exceed l Codeine 10:53: 4gm/day of Herm vonnie Phosphate 00 acetaminop 30 MG Oral hen. (Same Tablet as: [Tylenol Tylenol with with Codeine #3] Codeine # 3) [facility] 2015-02 No Notes: Do M emoria en 300 MG / 2-19 not exceed l Codeine 10:53: 4gm/day of Herm vonnie Phosphate 00 acetaminop 30 MG Oral hen. (Same Tablet as: [Tylenol Tylenol with with Codeine #3] Codeine # 3) methylPREDN 2015-02 No Notes: Shin elton ISolone 04-08 (Same l SODium 10:52: as:Solu-ME Venecia nn [...] mine 2-19 (Same as: l 10:52: Benadryl) [place] 00 Famotidine 2015-02 No Notes: Memor ia 2-19 (Same as: l 10:52: Pepcid) Mikey 00 Can be dilute in 5-10cc NS IVP: Slow IV push over at least 2 minutes. methylPREDN 2015-02 No Notes: Shin elton ISolone 2-19 (Same l SODium 10:52: as:Solu-ME Venecia nn SUCCinate 00 DROL, A-Methapre d) Diphenhydra 2015-02 No Notes: Shin elton mine 2-19 (Same as: l 10:52: Benadryl) [place] 00 Famotidine 2015-02 No Notes: Memor ia 2-19 (Same as: l 10:52: Pepcid) [place] 00 Can be dilute in 5-10cc NS [...] mine 2-19 (Same as: l 10:52: Benadryl) [place] 00 Famotidine 2015-02 No Notes: Memor ia 2-19 (Same as: l 10:52: Pepcid) [place] 00 Can be dilute in 5-10cc NS IVP: Slow IV push over at least 2 minutes. methylPREDN 2015-02 No Notes: Shin elton ISolone 2-19 (Same l SODium 10:52: as:Solu-ME Venecia nn SUCCinate 00 DROL, A-Methapre d) Diphenhydra 2015-02 No Notes: Shin elton mine 2-19 (Same as: l 10:52: Benadryl) Mikey 00 Famotidine 2015-02 No Notes: Memor ia 2-19 (Same as: l 10:52: Pepcid) [place] 00 Can be dilute in 5-10cc NS IVP: Slow IV push over at least 2 minutes. methylPREDN 2015-02 No Notes: Shin elton ISolone 2-19 (Same l SODium 10:52: as:Solu-ME Venecia nn SUCCinate 00 DROL, A-Methapre d) Diphenhydra 2015-02 No Notes: Shin elton mine 2-19 (Same as: l 10:52: Benadryl) [place] 00 Famotidine 2015-02 No Notes: Memor ia 2-19 (Same as: l 10:52: Pepcid) [place] 00 Can be dilute in 5-10cc NS IVP: Slow IV push over at least 2 minutes. methylPREDN 2015-02 No Notes: Shin elton ISolone 2-19 (Same l SODium 10:52: as:Solu-ME Venecia nn SUCCinate 00 DROL, A-Methapre d) Diphenhydra 2015-02 No Notes: Shin elton mine 2-19 (Same as: l 10:52: Benadryl) [place] 00 Famotidine 2015-02 No Notes: Memor ia 2-19 (Same as: l 10:52: Pepcid) [place] 00 Can be dilute in 5-10cc NS [...] ia 2-19 Take with l 10:46: food. [place] 00 Albuterol 2015-02 No Notes: Memori a 0.833 MG/ML 2-19 (Same as: l / 10:46: Duoneb) Mikey Ipratropium 00 [place] 0.167 MG/ML Inhalant Solution [DuoNeb] 12 HR 2015-02 No Notes: Memoria Chlorphenir 2-19 (chlorphen l amine 10:46: iramine-hy Masood n Maleate 1.6 00 drocodone MG/ML / 8-10mg/5ml Hydrocodone LIQ) Bitartrate Non-formul 2 MG/ML jamal drug. Extended (Same As: Release Tussionex Suspension [employer] [Tussionex c) [employer] ER] Prednisone 2015-02 No Notes: Memor ia 2-19 Take with l 10:46: food. [place] 00 Albuterol 2015-02 No Notes: Memori a 0.833 MG/ML 2-19 (Same as: l / 10:46: Duoneb) Mikey Ipratropium 00 [place] 0.167 MG/ML Inhalant Solution [DuoNeb] 12 HR [...] l / 10:46: Duoneb) Mikey Ipratropium 00 [place] 0.167 MG/ML Inhalant Solution [DuoNeb] 12 HR [...] 2-19 (Same as: l / 10:46: Duoneb) [place] Ipratropium 00 [place] 0.167 MG/ML Inhalant Solution [DuoNeb] 12 HR [...] 2-19 (Same as: l / 10:46: Duoneb) [place] Ipratropium 00 [place] 0.167 MG/ML Inhalant Solution [DuoNeb] 12 HR [...] l / 10:46: Duoneb) Mikey Ipratropium 00 [place] 0.167 MG/ML Inhalant Solution [DuoNeb] 12 HR [...] l / 10:46: Duoneb) Mikey Ipratropium 00 [place] 0.167 MG/ML Inhalant Solution [DuoNeb] 12 HR [...] 2-19 (Same as: l / 10:46: Duoneb) [place] Ipratropium 00 [place] 0.167 MG/ML Inhalant Solution [DuoNeb] Saline 2015-02 No Notes: Memoria Flush 0.9% 2-19 (Same as: l 10:45: BD [place] 00 Posiflush) Saline 2015-02 No Notes: Memoria Flush 0.9% 2-19 (Same as: l 10:45: BD [place] 00 Posiflush) Saline 2015-02 No Notes: Memoria Flush 0.9% 2-19 (Same as: l 10:45: BD Mikey 00 Posiflush) Saline 2015-02 No Notes: Memoria Flush 0.9% 2-19 (Same as: l 10:45: BD [place] 00 Posiflush) Saline 2015-02 No Notes: Memoria Flush 0.9% 2-19 (Same as: l 10:45: BD Mikey 00 Posiflush) Saline 2015-02 No Notes: Memoria Flush 0.9% 2-19 (Same as: l 10:45: BD [place] 00 Posiflush) Saline 2015-02 No Notes: Memoria Flush 0.9% 2-19 (Same as: l 10:45: BD [place] 00 Posiflush) Saline 2015-02 No Notes: Memoria Flush 0.9% 2-19 (Same as: l 10:45: BD [place] 00 Posiflush) Ondansetron 2015-0 Yes 4 mg = 1 Me moria 4 MG 6-22 tab, PO, l Disintegrat 22:34: TID, Masood n ing Tablet 00 Dissolve [Zofran] tab under tongue, X 3 day, # 9 tab, 0 Refill(s) Ondansetron 2016-0 Yes 4 mg = 1 Me moria 4 MG 6-22 tab, PO, l Disintegrat 22:34: TID, Masood n ing Tablet 00 Dissolve [Zofran] tab under tongue, X 3 day, # 9 tab, 0 Refill(s) Ondansetron 2015-0 Yes 4 mg = 1 Me moria 4 MG 6-22 tab, PO, l Disintegrat 22:34: TID, Masood n ing Tablet 00 Dissolve [Zofran] tab under tongue, X 3 day, # 9 tab, 0 Refill(s) Ondansetron 2015-0 Yes 4 mg = 1 Me moria 4 MG 6-22 tab, PO, l Disintegrat 22:34: TID, Masood n ing Tablet 00 Dissolve [Zofran] tab under tongue, X 3 day, # 9 tab, 0 Refill(s) Ondansetron 2016-0 Yes 4 mg = 1 Me moria 4 MG 6-22 tab, PO, l Disintegrat 22:34: TID, Masood n ing Tablet 00 Dissolve [Zofran] tab under tongue, X 3 day, # 9 tab, 0 Refill(s) Ondansetron 2016-0 Yes 4 mg = 1 Me moria 4 MG 6-22 tab, PO, l Disintegrat 22:34: TID, Masood n ing Tablet 00 Dissolve [Zofran] tab under tongue, X 3 day, # 9 tab, 0 Refill(s) Ondansetron 2016-0 Yes 4 mg = 1 Me moria 4 MG 6-22 tab, PO, l Disintegrat 22:34: TID, Masood n ing Tablet 00 Dissolve [Zofran] tab under tongue, X 3 day, # 9 tab, 0 Refill(s) Ondansetron 2016-0 Yes 4 mg = 1 Me moria 4 MG 6-22 tab, PO, l Disintegrat 22:34: TID, Maosod n ing Tablet 00 Dissolve [Zofran] tab under tongue, X 3 day, # 9 tab, 0 Refill(s) Dicyclomine 2016-0 Yes 10 [...] BID, X 5 Venecia nn Oral Tablet day, # 10 tab, 0 Refill(s) Dicyclomine 2016-0 Yes 10 mg = 1 M emoria Hydrochlori 6-22 cap, PO, l de 10 MG 22:33: QID-Before Her [place] Oral 00 Meals, # Capsule 28 cap, 0 [Bentyl] Refill(s) tramadol 2016-0 Yes 50 mg = 1 [place] hydrochlori 6-22 tab, PO, l de 50 MG 22:33: BID, X 5 Venecia nn Oral Tablet day, # 10 tab, 0 Refill(s) Dicyclomine 2016-0 Yes 10 mg = 1 M emoria Hydrochlori 6-22 cap, PO, l de 10 MG 22:33: QID-Before Her [place] Oral 00 Meals, # Capsule 28 cap, 0 [Bentyl] Refill(s) tramadol 2016-0 Yes 50 mg = 1 [place] hydrochlori 6-22 tab, PO, l de 50 MG 22:33: BID, X 5 Venecia nn Oral Tablet day, # 10 tab, 0 Refill(s) Dicyclomine [...] 00 day, # 10 tab, 0 Refill(s) Sodium 2015-0 No 1,000 mL, Memori a Chloride 622 2,000 l 0.154 20:48: ml/hr, [place] MEQ/ML 00 Infuse Injectable Over: 30 Solution minutes, Route: IV, ONCE, Priority: STAT, Dosing Weight 79.545 kg, Start date: 08/10/15 15:48:00 CDT, Duration: 1 doses or times, Stop date: 08/10/15 15:48:00 CDT Morphine 2016-0 No 4 mg, Memoria 08-09 Route: l 20:48: IVP, ONCE, Dosing Weight 79.545, kg, Priority: STAT, Start date: 08/10/15 15:48:00 CDT, Stop date: 08/10/15 15:48:00 CDT Ondansetron 2016-0 No 4 mg, Memor ia 08-09 Route: l 20:48: IVP, ONCE, Dosing Weight 79.545, kg, Priority: STAT, Start date: 08/10/15 15:48:00 CDT, Stop date: 08/10/15 15:48:00 CDT Saline 2015-0 No Notes: Memoria Flush 0.9% 08-09 (Same as: l 20:48: BD [place] 00 Posiflush) Sodium 2016-0 No 1,000 mL, Memori a Chloride 22 2,000 l 0.154 20:48: ml/hr, Mikey MEQ/ML 00 Infuse Injectable Over: 30 Solution minutes, Route: IV, ONCE, Priority: STAT, Dosing Weight 79.545 kg, Start date: 08/10/15 15:48:00 CDT, Duration: 1 doses or times, Stop date: 08/10/15 15:48:00 CDT Morphine 2016-0 No 4 mg, Memoria 08-09 Route: l 20:48: IVP, ONCE, Dosing Weight 79.545, kg, Priority: STAT, Start date: 08/10/15 15:48:00 CDT, Stop date: 08/10/15 15:48:00 CDT Ondansetron 2016-0 No 4 mg, Memor ia 08-09 Route: l 20:48: IVP, ONCE, Dosing Weight 79.545, kg, Priority: STAT, Start date: 08/10/15 15:48:00 CDT, Stop date: 08/10/15 15:48:00 CDT Saline 2015-0 No Notes: Memoria Flush 0.9% 08-09 (Same as: l 20:48: BD Mikey 00 Posiflush) Sodium 2016-0 No 1,000 mL, Memori a Chloride 08-09 2,000 l 0.154 20:48: ml/hr, Mikey MEQ/ML 00 Infuse Injectable Over: 30 Solution minutes, Route: IV, ONCE, Priority: STAT, Dosing Weight 79.545 kg, Start date: 08/10/15 15:48:00 CDT, Duration: 1 doses or times, Stop date: 08/10/15 15:48:00 CDT Morphine 2016-0 No 4 mg, Memoria 08-09 Route: l 20:48: IVP, ONCE, Dosing Weight 79.545, kg, Priority: STAT, Start date: 08/10/15 15:48:00 CDT, Stop date: 08/10/15 15:48:00 CDT Ondansetron 2016-0 No 4 mg, Memor ia 08-09 Route: l 20:48: IVP, ONCE, Dosing Weight 79.545, kg, Priority: STAT, Start date: 08/10/15 15:48:00 CDT, Stop date: 08/10/15 15:48:00 CDT Saline 2016-0 No Notes: Memoria Flush 0.9% 6-22 (Same as: l 20:48: BD Mikey Posiflush) Sodium 2016-0 No 1,000 mL, Memori a Chloride 6-22 2,000 l 0.154 20:48: ml/hr, [place] MEQ/ML 00 Infuse Injectable Over: 30 Solution minutes, Route: IV, ONCE, Priority: STAT, Dosing Weight 79.545 kg, Start date: 08/10/15 15:48:00 CDT, Duration: 1 doses or times, Stop date: 08/10/15 15:48:00 CDT Morphine 2016-0 No 4 mg, Memoria 6-22 Route: l 20:48: IVP, ONCE, Dosing Weight 79.545, kg, Priority: STAT, Start date: 08/10/15 15:48:00 CDT, Stop date: 08/10/15 15:48:00 CDT Ondansetron 2016-0 No 4 mg, Memor ia 08-09 Route: l 20:48: IVP, ONCE, Dosing Weight 79.545, kg, Priority: STAT, Start date: 08/10/15 15:48:00 CDT, Stop date: 08/10/15 15:48:00 CDT Saline 2016-0 No Notes: Memoria Flush 0.9% 6-22 (Same as: l 20:48: BD [place] 00 Posiflush) Sodium 2016-0 No 1,000 mL, Memori a Chloride 6-22 2,000 l 0.154 20:48: ml/hr, [place] MEQ/ML 00 Infuse Injectable Over: 30 Solution minutes, Route: IV, ONCE, Priority: STAT, Dosing Weight 79.545 kg, Start date: 08/10/15 15:48:00 CDT, Duration: 1 doses or times, Stop date: 08/10/15 15:48:00 CDT Morphine 2016-0 No 4 mg, Memoria 6-22 Route: l 20:48: IVP, ONCE, Mikey 00 Dosing Weight 79.545, kg, Priority: STAT, Start date: 08/10/15 15:48:00 CDT, Stop date: 08/10/15 15:48:00 CDT Ondansetron 2016-0 No 4 mg, Memor ia 08-09 Route: l 20:48: IVP, ONCE, Dosing Weight 79.545, kg, Priority: STAT, Start date: 08/10/15 15:48:00 CDT, Stop date: 08/10/15 15:48:00 CDT Saline 2015-0 No Notes: Memoria Flush 0.9% 6-22 (Same as: l 20:48: BD Mikey 00 Posiflush) Sodium 2016-0 No 1,000 mL, Memori a Chloride 6-22 2,000 l 0.154 20:48: ml/hr, Mikey MEQ/ML 00 Infuse Injectable Over: 30 Solution minutes, Route: IV, ONCE, Priority: STAT, Dosing Weight 79.545 kg, Start date: 08/10/15 15:48:00 CDT, Duration: 1 doses or times, Stop date: 08/10/15 15:48:00 CDT Morphine 2016-0 No 4 mg, Memoria 6 Route: l 20:48: IVP, ONCE, Dosing Weight 79.545, kg, Priority: STAT, Start date: 08/10/15 15:48:00 CDT, Stop date: 08/10/15 15:48:00 CDT Ondansetron 2015-0 No 4 mg, Memor ia 08-09 Route: l 20:48: IVP, ONCE, Dosing Weight 79.545, kg, Priority: STAT, Start date: 08/10/15 15:48:00 CDT, Stop date: 08/10/15 15:48:00 CDT Saline 2015-0 No Notes: Memoria Flush 0.9% 6-22 (Same as: l 20:48: BD Mikey 00 Posiflush) Sodium 2016-0 No 1,000 mL, Memori a Chloride 6-22 2,000 l 0.154 20:48: ml/hr, [place] MEQ/ML 00 Infuse Injectable Over: 30 Solution minutes, Route: IV, ONCE, Priority: STAT, Dosing Weight 79.545 kg, Start date: 08/10/15 15:48:00 CDT, Duration: 1 doses or times, Stop date: 08/10/15 15:48:00 CDT Morphine 2016-0 No 4 mg, Memoria 6-22 [...] Saline 2015-0 No Notes: Memoria Flush 0.9% 6-22 (Same as: l 20:48: BD [place] 00 Posiflush) Morphine 2016-0 No 4 mg, Memoria 6-22 [...] Saline 2015-0 No Notes: Memoria Flush 0.9% -22 (Same as: l 20:48: BD [place] 00 Posiflush) Sodium 2016-0 No 1,000 mL, Memori a Chloride 22 2,000 l 0.154 20:48: ml/hr, [place] MEQ/ML 00 Infuse Injectable Over: 30 Solution minutes, Route: IV, ONCE, Priority: STAT, Dosing Weight 79.545 kg, Start date: 08/10/15 15:48:00 CDT, Duration: 1 doses or times, Stop date: 08/10/15 15:48:00 CDT bacitracin- 2015-0 No 1 appl, Mem oria polymyxin B 7-15 BOTH EYES, l ophthalmic 05:00: QID, # 3 Her [place] ointment 00 gm, 0 Refill(s) bacitracin- 2015-0 No 1 appl, Mem oria polymyxin B 7-15 BOTH EYES, l ophthalmic 05:00: QID, # 3 Her [place] ointment 00 gm, 0 Refill(s) bacitracin- 2014-0 No 1 appl, Mem oria polymyxin B 7-15 BOTH EYES, l ophthalmic 05:00: QID, # 3 Her [place] ointment 00 gm, 0 Refill(s) bacitracin- 2014-0 No 1 appl, Mem oria polymyxin B 7-15 BOTH EYES, l ophthalmic 05:00: QID, # 3 Her [place] ointment 00 gm, 0 Refill(s) bacitracin- 2014-0 No 1 appl, Mem oria polymyxin B 7-15 BOTH EYES, l ophthalmic 05:00: QID, # 3 Her [place] ointment 00 gm, 0 Refill(s) bacitracin- 2014-0 No 1 appl, Mem oria polymyxin B 7-15 BOTH EYES, l ophthalmic 05:00: QID, # 3 Her [place] ointment 00 gm, 0 Refill(s) bacitracin- 2014-0 No 1 appl, Mem oria polymyxin B 7-15 BOTH EYES, l ophthalmic 05:00: QID, # 3 Her [place] ointment 00 gm, 0 Refill(s) bacitracin- 2014-0 No 1 appl, Mem oria polymyxin B [...] oral tablet Refill(s) Motrin 800 Yes Talon Josh 800 [...] oral tablet Refill(s) Motrin 800 Yes Talon Josh 800 [...] oral tablet Refill(s) Motrin 800 Yes [place] Josh 800 [...] oral tablet Refill(s) Motrin 800 Yes Tal[place] Josh 800 [...] oral tablet Refill(s) Motrin 800 Yes [place] Josh 800 [...] oral tablet Refill(s) Motrin 800 Yes [place] Josh 800 [...] oral tablet Refill(s) Motrin 800 Yes [place] Josh 800 [...] mg 00 tab, 0 oral tablet Refill(s) [place] 5/325 No Talon Josh 2 tab, Memoria oral tablet 2-12 [place] Route: PO, l 21:42: Drug Form: [place] 00 TAB, Dosing Weight 85.455, kg, ONCE, Start date: 04/01/13 15:42:00, Stop date: 04/01/13 15:42:00(S ej as: [place] 325/5) Do not exceed 4gm/day of acetaminop hen. Motrin No Talon Josh 800 mg, 2 Me moria 2-12 [place] tab, l 21:42: Route: PO, Mikey 00 Drug form: TAB, ONCE, Dosing Weight 85.455, kg, Priority: STAT, Start date: 04/01/13 15:42:00, Stop date: 04/01/13 15:42:00(S ej as: Motrin) "Do Not Crush" Give with food. [place] No Talon Josh 2 tab, Memoria oral tablet 2-12 [place] Route: PO, l 21:42: Drug Form: Mikey 00 TAB, Dosing Weight 85.455, kg, ONCE, Start date: 04/01/13 15:42:00, Stop date: 04/01/13 15:42:00(S ej as: [place] 325/5) Do not exceed 4gm/day of acetaminop hen. Motrin No Talon Josh 800 mg, 2 Me moria 2-12 [place] tab, l 21:42: Route: PO, [place] 00 Drug form: TAB, ONCE, Dosing Weight 85.455, kg, Priority: STAT, Start date: 04/01/13 15:42:00, Stop date: 04/01/13 15:42:00(S ej as: Motrin) "Do Not Crush" Give with food. [place] No Talon Josh 2 tab, Memoria oral tablet 2-12 [place] Route: PO, l 21:42: Drug Form: [place] 00 TAB, Dosing Weight 85.455, kg, ONCE, Start date: 04/01/13 15:42:00, Stop date: 04/01/13 15:42:00(S ej as: [place] 325/5) Do not exceed 4gm/day of acetaminop hen. Motrin No Talon Josh 800 mg, 2 Me moria 2-12 [place] tab, l 21:42: Route: PO, [place] 00 Drug form: TAB, ONCE, Dosing Weight 85.455, kg, Priority: STAT, Start date: 04/01/13 15:42:00, Stop date: 04/01/13 15:42:00(S ej as: Motrin) "Do Not Crush" Give with food. [place] No Talon Josh 2 tab, Memoria oral tablet 2-12 [place] Route: PO, l 21:42: Drug Form: Mikey 00 TAB, Dosing Weight 85.455, kg, ONCE, Start date: 04/01/13 15:42:00, Stop date: 04/01/13 15:42:00(S ej as: [place] 325/5) Do not exceed 4gm/day of acetaminop hen. Motrin No Talon Josh 800 mg, 2 Me moria 2-12 [place] tab, l 21:42: Route: PO, [place] 00 Drug form: TAB, ONCE, Dosing Weight 85.455, kg, Priority: STAT, Start date: 04/01/13 15:42:00, Stop date: 04/01/13 15:42:00(S ej as: Motrin) "Do Not Crush" Give with food. [place] 325 No Talon Josh 2 tab, Memoria oral tablet 2-12 [place] Route: PO, l 21:42: Drug Form: Mikey 00 TAB, Dosing Weight 85.455, kg, ONCE, Start date: 04/01/13 15:42:00, Stop date: 04/01/13 15:42:00(S ej as: [place] 325/5) Do not exceed 4gm/day of acetaminop hen. Motrin No Tal[place] 800 mg, 2 Me moria 2-12 [place] tab, l 21:42: Route: PO, Mikey 00 Drug form: TAB, ONCE, Dosing Weight 85.455, kg, Priority: STAT, Start date: 04/01/13 15:42:00, Stop date: 04/01/13 15:42:00(S ej as: Motrin) "Do Not Crush" Give with food. [place] No Talon Josh 2 tab, Memoria oral tablet 2-12 [place] Route: PO, l 21:42: Drug Form: Mikey 00 TAB, Dosing Weight 85.455, kg, ONCE, Start date: 04/01/13 15:42:00, Stop date: 04/01/13 15:42:00(S ej as: [place] 325/5) Do not exceed 4gm/day of acetaminop hen. Motrin No Tal[place] Josh 800 mg, 2 Me moria 2-12 [place] tab, l 21:42: Route: PO, [place] 00 Drug form: TAB, ONCE, Dosing Weight 85.455, kg, Priority: STAT, Start date: 04/01/13 15:42:00, Stop date: 04/01/13 15:42:00(S ej as: Motrin) "Do Not Crush" Give with food. [place] No Talon Josh 2 tab, Memoria oral tablet 2-12 [place] Route: PO, l 21:42: Drug Form: Mikey 00 TAB, Dosing Weight 85.455, kg, ONCE, Start date: 04/01/13 15:42:00, Stop date: 04/01/13 15:42:00(S ej as: [place] 325/5) Do not exceed 4gm/day of acetaminop hen. Motrin No Tal[place] Josh 800 mg, 2 Me moria 2-12 [place] tab, l 21:42: Route: PO, [place] 00 Drug form: TAB, ONCE, Dosing Weight 85.455, kg, Priority: STAT, Start date: 04/01/13 15:42:00, Stop date: 04/01/13 15:42:00(S ej as: Motrin) "Do Not Crush" Give with food. [place] No Talon Josh 2 tab, Memoria oral tablet 12 [place] Route: PO, l 21:42: Drug Form: [place] 00 TAB, Dosing Weight 85.455, kg, ONCE, Start date: 04/01/13 15:42:00, Stop date: 04/01/13 15:42:00(S ej as: [place] 325/5) Do not exceed 4gm/day of acetaminop hen. Motrin No Tal[place] Josh 800 mg, 2 Me moria 2-12 [place] tab, l 21:42: Route: PO, Mikey 00 Drug form: TAB, ONCE, Dosing Weight 85.455, kg, Priority: STAT, Start date: 04/01/13 15:42:00, Stop date: 04/01/13 15:42:00(S ej as: Motrin) "Do Not Crush" Give with food. Atorvastati Atorvastati Yes Ramon TAKE 1 Common n Calcium n Calcium Harris TABLET BY [facility] MOUTH ONCE - [facility] DAILY [facility] Novolin Yes [place] 30 units Com mon 70/30 70/30 [facility] in [facility] morning , - [facility] [address] [facility] Vitamin D Vitamin D Yes Ramon TAKE 1 C ommon (Ergocalcif (Ergocalcif Harris CAPSULE BY [facility] mirian) mirian) MOUTH ONCE - CHI A WEEK [facility] Lisinopril Lisinopril Yes [place] TAKE 1 Common Harris TABLET BY [facility] MOUTH ONCE - [facility] DAILY [facility] NovoLIN NovoLIN No QD NovoLIN 70/30 70/30 70/30 (70-30) 100 (70-30) 100 (70-30) UNIT/ML UNIT/ML 100 UNIT/ML Atorvastati Atorvastati No QD Atorvastat n Calcium n Calcium in Calcium 40 MG 40 MG 40 MG Vitamin D Vitamin D No QD Vitamin D (Ergocalcif (Ergocalcif (Ergocalci mirian) 1.25 mirian) 1.25 ferol) MG (73046 MG (28085 1.25 MG UT) UT) (79408 UT) Lisinopril Lisinopril No QD Lisinopril 20 [...] (Ergocalci mirian) 1.25 mirian) 1.25 ferol) MG (76361 MG (06389 1.25 MG UT) UT) (23444 UT) Vitamin D Vitamin D No QD Vitamin D (Ergocalcif (Ergocalcif (Ergocalci mirian) 1.25 mirian) 1.25 ferol) MG (76493 MG (15077 1.25 MG UT) UT) (52927 UT) Lisinopril Lisinopril No QD Lisinopril 20 [...] (Ergocalci mirian) 1.25 mirian) 1.25 ferol) MG (20727 MG (92049 1.25 MG UT) UT) (70607 UT) glipiZIDE glipiZIDE No 1{table BID glipiZIDE [...] (Ergocalci mirian) 1.25 mirian) 1.25 ferol) MG (06564 MG (75317 1.25 MG UT) UT) (61098 UT) glipiZIDE glipiZIDE No 1{table BID glipiZIDE [...] (Ergocalci mirian) 1.25 mirian) 1.25 ferol) MG (55771 MG (00166 1.25 MG UT) UT) (92462 UT) glipiZIDE glipiZIDE No 1{table BID glipiZIDE [...] (Ergocalci mirian) 1.25 mirian) 1.25 ferol) MG (36557 MG (89284 1.25 MG UT) UT) (38393 UT) Breo Breo No 1{puff} QD Breo [...] (Ergocalci mirian) 1.25 mirian) 1.25 ferol) MG (57648 MG (55681 1.25 MG UT) UT) (86174 UT) Breo Breo No 1{puff} QD Breo [...] (Ergocalci mirian) 1.25 mirian) 1.25 ferol) MG (84721 MG (94434 1.25 MG UT) UT) (28932 UT) Breo Breo No 1{puff} QD Breo [...] (Ergocalci mirian) 1.25 mirian) 1.25 ferol) MG (21143 MG (37102 1.25 MG UT) UT) (21037 UT) ProAir HFA ProAir HFA No 2{puffs [...] (Ergocalci mirian) 1.25 mirian) 1.25 ferol) MG (29015 MG (94920 1.25 MG UT) UT) (15826 UT) ProAir HFA ProAir HFA No 2{puffs [...] (Ergocalci mirian) 1.25 mirian) 1.25 ferol) MG (96343 MG (66016 1.25 MG UT) UT) (01756 UT) ProAir HFA ProAir HFA No 2{puffs [...] (Ergocalci mirian) 1.25 mirian) 1.25 ferol) MG (17479 MG (53621 1.25 MG UT) UT) (38317 UT) ProAir HFA ProAir HFA No 2{puffs [...] (Ergocalci mirian) 1.25 mirian) 1.25 ferol) MG (58992 MG (29457 1.25 MG UT) UT) (52838 UT) Breo Breo No 1{puff} QD Breo [...] (Ergocalci mirian) 1.25 mirian) 1.25 ferol) MG (34007 MG (67810 1.25 MG UT) UT) (35096 UT) Atorvastati Atorvastati No QD Atorvastat n [...] (Ergocalci mirian) 1.25 mirian) 1.25 ferol) MG (51644 MG (33129 1.25 MG UT) UT) (65613 UT) Atorvastati Atorvastati No QD Atorvastat n [...] (Ergocalci mirian) 1.25 mirian) 1.25 ferol) MG (06990 MG (43249 1.25 MG UT) UT) (68547 UT) Atorvastati Atorvastati No QD Atorvastat n [...] Completed [facility] ([facility]adeem) (Nadeem) 10:44:00 [facility] COVID-19 Vaccine COVID-19 Vaccine 2020-05-04 Completed [facility] ([place]) (Nadeem) 10:44:00 [facility] COVID-19 Vaccine COVID-19 Vaccine 2020-05-04 Completed [facility] ([place]) (Nadeem) 10:44:00 - [facility] COVID-19 Vaccine COVID-19 Vaccine 2020-05-04 Completed [facility] ([place]) (Nadeem) 10:44:00 [facility] COVID-19 Vaccine COVID-19 Vaccine 2020-05-04 Completed [facility] ([place]) (Nadeem) 10:44:00 [facility] COVID-19 Vaccine COVID-19 Vaccine 2020-05-04 Completed [facility] ([place]) (Nadeem) 10:44:00 - [facility] COVID-19 Vaccine COVID-19 Vaccine 2020-05-04 Completed [facility] ([place]) (Nadeem) 10:44:00 [facility] COVID-19 Vaccine COVID-19 Vaccine 2020-05-04 Completed [facility] ([place]) (Nadeem) 10:44:00 [facility] COVID-19 Vaccine COVID-19 Vaccine 2020-05-04 Completed [facility] ([place]) (Nadeem) 10:44:00 [facility] COVID-19 Vaccine COVID-19 Vaccine 2020-05-04 Completed [facility] ([place]) (Nadeem) 10:44:00 [facility] COVID-19 Vaccine COVID-19 Vaccine 2020-05-04 Completed [facility] ([place]) (Nadeem) 10:44:00 [facility] COVID-19 Vaccine COVID-19 Vaccine 2020-05-04 Completed [facility] ([place]) (Nadeem) 10:44:00 [facility] COVID-19 Vaccine COVID-19 Vaccine 2020-05-04 Completed [facility] ([place]) (Nadeem) 10:44:00 - [facility] COVID-19 Vaccine COVID-19 Vaccine 2020-05-04 Completed [facility] ([place]) (Nadeem) 10:44:00 - [facility] COVID-19 Vaccine COVID-19 Vaccine 2020-05-04 Completed [facility] ([place]) (Nadeem) 10:44:00 - [facility] COVID-19 Vaccine COVID-19 Vaccine 2020-05-04 Completed [facility] ([place]) (Nadeem) 10:44:00 - [facility] COVID-19 Vaccine COVID-19 Vaccine 2020-05-04 Completed [facility] ([place]) (Nadeem) 10:44:00 [facility] Afluria single dose Afluria single dose 2019-11-18 Completed [facility] 13:06:00 [facility] Afluria single dose Afluria single dose 2019-11-18 Completed [facility] 13:06:00 [facility] Afluria single dose Afluria single dose 2019-11-18 Completed [facility] 13:06:00 [facility] Afluria single dose Afluria single dose 2019-11-18 Completed [facility] 13:06:00 [facility] Afluria single dose Afluria single dose 2019-11-18 Completed [facility] 13:06:00 [facility] Afluria single dose Afluria single dose 2019-11-18 Completed [facility] 13:06:00 [facility] Afluria single dose Afluria single dose 2019-11-18 Completed [facility] 13:06:00 [facility] Afluria single dose Afluria single dose 2019-11-18 Completed [facility] 13:06:00 [facility] Afluria single dose Afluria single dose 2019-11-18 Completed [facility] 13:06:00 [facility] Afluria single dose Afluria single dose 2019-11-18 Completed [facility] 13:06:00 [facility] Afluria single dose Afluria single dose 2019-11-18 Completed [facility] 13:06:00 [facility] Afluria single dose Afluria single dose 2019-11-18 Completed [facility] 13:06:00 - [facility] Afluria single dose Afluria single dose 2019-11-18 Completed [facility] 13:06:00 - [facility] Afluria single dose Afluria single dose 2019-11-18 Completed [facility] 13:06:00 - [facility] Afluria single dose Afluria single dose 2019-11-18 Completed [facility] 13:06:00 - [facility] Afluria single dose Afluria single dose 2019-11-18 Completed [facility] 13:06:00 - [facility] Afluria single dose Afluria single dose 2019-11-18 Completed [facility] 13:06:00 [facility] Vital Signs Vital Name Observation Time Observation Value Comments Source height 2021-04-18 14:20:00 70 [in_i] [facility] weight 2021-04-18 14:20:00 205.8 [lb_av] [facility] temperature 2021-04-18 14:20:00 98.0 [degF] [facility] bmi 2021-04-18 14:20:00 29.53 kg/m2 [facility] oximetry 2021-04-18 14:20:00 96 % [facility] respiratory rate 2021-04-18 14:20:00 18 /min Comm on [facility] blood pressure 2021-04-18 14:20:00 117 mm[Hg] [facility] systolic [facility] blood pressure 2021-04-18 14:20:00 86 mm[Hg] [facility] diastolic [facility] height 2021-03-20 09:20:00 70 [in_i] [facility] weight 2021-03-20 09:20:00 200.1 [lb_av] [facility] temperature 2021-03-20 09:20:00 98.2 [degF] [facility] bmi 2021-03-20 09:20:00 28.71 kg/m2 Common S pirit [facility] oximetry 2021-03-20 09:20:00 99 % Common S pirit [facility] respiratory rate 2021-03-20 09:20:00 18 /min Comm on [facility] blood pressure 2021-03-20 09:20:00 133 mm[Hg] Common [facility] - systolic [facility] blood pressure 2021-03-20 09:20:00 86 mm[Hg] [facility] - diastolic [facility] height 2020-11-24 14:30:00 70 [in_i] Common S [facility] weight 2020-11-24 14:30:00 209.6 [lb_av] Common [facility] bmi 2020-11-24 14:30:00 30.07 kg/m2 Common [facility] blood pressure 2020-11-24 14:30:00 132 mm[Hg] Common [facility] - systolic [facility] blood pressure 2020-11-24 14:30:00 81 mm[Hg] [facility] - diastolic [facility] height 2020-11-14 13:00:00 70 [in_i] Common [facility] weight 2020-11-14 13:00:00 212.7 [lb_av] Common [facility] temperature 2020-11-14 13:00:00 97.4 [degF] Common S [facility] bmi 2020-11-14 13:00:00 30.52 kg/m2 Common S pirit [facility] oximetry 2020-11-14 13:00:00 98 % Common S [facility] respiratory rate 2020-11-14 13:00:00 19 /min Comm on [facility] blood pressure 2020-11-14 13:00:00 139 mm[Hg] Common [facility] - systolic [facility] blood pressure 2020-11-14 13:00:00 83 mm[Hg] [facility] - diastolic [facility] height 2020-10-12 14:10:00 70 [in_i] Common S pirit [facility] weight 2020-10-12 14:10:00 206.4 [lb_av] Common [facility] temperature 2020-10-12 14:10:00 97.2 [degF] [facility] 2020-10-12 14:10:00 29.61 kg/m2 Common S [facility] oximetry 2020-10-12 14:10:00 96 % Common S [facility] respiratory rate 2020-10-12 14:10:00 18 /min Comm on [facility] blood pressure 2020-10-12 14:10:00 135 mm[Hg] Common [facility] - systolic [facility] blood pressure 2020-10-12 14:10:00 71 mm[Hg] Common [facility] - diastolic [facility] height 2020-09-14 13:20:00 70 [in_i] Common [facility] weight 2020-09-14 13:20:00 200.9 [lb_av] [facility] temperature 2020-09-14 13:20:00 98.2 [degF] Common [facility] bmi 2020-09-14 13:20:00 28.82 kg/m2 [facility] oximetry 2020-09-14 13:20:00 99 % Common [facility] respiratory rate 2020-09-14 13:20:00 16 /min Comm on [facility] blood pressure 2020-09-14 13:20:00 125 mm[Hg] [facility] - systolic [facility] blood pressure 2020-09-14 13:20:00 75 mm[Hg] [facility] - diastolic [facility] height 2020-08-15 14:50:00 70 [in_i] Common [facility] weight 2020-08-15 14:50:00 197.8 [lb_av] Common [facility] temperature 2020-08-15 14:50:00 97.4 [degF] Common S [facility]irit - [facility] bmi 2020-08-15 14:50:00 28.38 kg/m2 Common S [facility]irit - [facility] oximetry 2020-08-15 14:50:00 98 % Common S [facility] - [facility] respiratory rate 2020-08-15 14:50:00 17 /min Comm on [facility] - [facility] blood pressure 2020-08-15 14:50:00 123 mm[Hg] [facility] - systolic [facility] blood pressure 2020-08-15 14:50:00 78 mm[Hg] [facility] - diastolic [facility] Systolic (mm Hg) 2020-06-01 19:57:00 Shin rial Mikey Diastolic (mm Hg) 2020-06-01 19:57:00 Mem orial Mikey Heart Rate 2020-06-01 19:57:00 [facility] Respitory Rate 2020-06-01 19:57:00 Memori al Mikey Temperature Oral (F) 2016-02-10 18:00:00 98.3 F [facility] Respitory Rate 2016-02-10 18:00:00 Memori al [place] Systolic (mm Hg) 2016-02-10 18:00:00 Shin rial Mikey Diastolic (mm Hg) 2016-02-10 18:00:00 Mem orial Mikey Heart Rate 2016-02-10 18:00:00 [facility] [place] Systolic (mm Hg) 2016-02-10 13:00:00 Shin rial Mikey Diastolic (mm Hg) 2016-02-10 13:00:00 Mem orial [place] Respitory Rate 2016-02-10 13:00:00 Memori al [place] Heart Rate 2016-02-10 13:00:00 [facility] Mikey Temperature Oral (F) 2016-02-10 13:00:00 98.7 F [facility] Respitory Rate 2016-02-10 06:22:00 Memori al [place] Systolic (mm Hg) 2016-02-10 06:22:00 Shin rial [place] Diastolic (mm Hg) 2016-02-10 06:22:00 Mem orial Mikey Heart Rate 2016-02-10 06:22:00 [facility] Temperature Oral (F) 2016-02-10 06:22:00 98.2 F [facility] [place] BMI Calculated 2016-02-06 21:11:00 Memori al [place] Height 2016-02-06 21:11:00 152.4 cm [facility] [place] Weight 2016-02-06 21:11:00 [facility] Weight 2016-02-06 10:47:00 [facility] [place] BMI Calculated 2016-02-06 10:47:00 Memori al [place] Height 2016-02-06 10:47:00 152.4 cm [facility] [place] Respitory Rate 2015-08-10 22:56:00 Memori al [place] Systolic (mm Hg) 2015-08-10 22:56:00 Shin rial [place] Diastolic (mm Hg) 2015-08-10 22:56:00 Mem orial Mikey Heart Rate 2015-08-10 22:56:00 [facility] [place] Temperature Oral (F) 2015-08-10 22:56:00 96.9 F [facility] Temperature Oral (F) 2015-08-10 21:33:00 97.3 F [facility] Respitory Rate 2015-08-10 21:33:00 Memori al [place] Heart Rate 2015-08-10 21:33:00 [facility] [place] Systolic (mm Hg) 2015-08-10 21:33:00 Shin rial Mikey Diastolic (mm Hg) 2015-08-10 21:33:00 [facility] Systolic (mm Hg) 2015-08-10 20:22:00 [facility] Diastolic (mm Hg) 2015-08-10 20:22:00 [facility] Temperature Oral (F) 2015-08-10 20:22:00 97.5 F [facility] Heart Rate 2015-08-10 20:22:00 [facility] Respitory Rate 2015-08-10 20:22:00 [facility] Height 2015-08-10 20:22:00 152.4 cm [facility] Weight 2015-08-10 20:22:00 [facility] BMI Calculated 2015-08-10 20:22:00 [facility] Weight 2014-09-01 04:43:00 [facility] BMI Calculated 2014-09-01 04:43:00 [facility] Temperature Oral (F) 2014-09-01 04:43:00 98.5 F [facility] Heart Rate 2014-09-01 04:43:00 [facility] Respitory Rate 2014-09-01 04:43:00 [facility] Height 2014-09-01 04:43:00 154.94 cm [facility] Systolic (mm Hg) 2014-09-01 04:43:00 [facility] Diastolic (mm Hg) 2014-09-01 04:43:00 [facility] Height 2013-04-01 21:10:00 152.4 cm [facility] Weight 2013-04-01 21:10:00 [facility] Temperature Oral (F) 2013-04-01 21:10:00 97.0 F [facility] Heart Rate 2013-04-01 21:10:00 [facility] Respitory Rate 2013-04-01 21:10:00 Memori al Mikey Systolic (mm Hg) 2013-04-01 21:10:00 Shin rial Mikey Diastolic (mm Hg) 2013-04-01 21:10:00 Mem orial Mikey Procedures This patient has no known procedures. Plan of Care Planned Activity Planned Date Details Comments Source Future Scheduled Test 2022-11-18 00:00:00 IMM Influenza [facility] Seasonal (>/= 19 yrs) [code = IMM Influenza Seasonal (>/= 19 yrs)] Future Scheduled Test 2022-11-18 00:00:00 IMM Influenza [facility] Seasonal (>/= 19 yrs) [code = IMM Influenza Seasonal (>/= 19 yrs)] Future Scheduled Test 2022-11-18 00:00:00 IMM Influenza [facility] Seasonal (>/= 19 yrs) [code = IMM Influenza Seasonal (>/= 19 yrs)] Future Scheduled Test 2022-11-18 00:00:00 IMM Influenza [facility] Seasonal (>/= 19 yrs) [code = IMM Influenza Seasonal (>/= 19 yrs)] Future Scheduled Test 2022 00:00:00 Screening for [facility] malignant neoplasm of colon (procedure) [code = 616577377] Future Scheduled Test 2022 00:00:00 Screening for [facility] malignant neoplasm of colon (procedure) [code = 149591228] Future Scheduled Test 2022 00:00:00 Screening for [facility] malignant neoplasm of colon (procedure) [code = 887750437] Future Scheduled Test 2022 00:00:00 Screening for [facility] malignant neoplasm of colon (procedure) [code = 657033849] Future Scheduled Test 2022 00:00:00 Screening for [facility] malignant neoplasm of colon (procedure) [code = 897939144] Future Scheduled Test 2021-11-18 00:00:00 IMM Influenza [facility] Seasonal (>/= 19 yrs) [code = IMM Influenza Seasonal (>/= 19 yrs)] Future Scheduled Test 2021-11-18 00:00:00 IMM Influenza [facility] Seasonal (>/= 19 yrs) [code = IMM Influenza Seasonal (>/= 19 yrs)] Future Scheduled Test 2021-11-18 00:00:00 IMM Influenza [facility] Seasonal (>/= 19 yrs) [code = IMM Influenza Seasonal (>/= 19 yrs)] Future Scheduled Test 1972 00:00:00 COVID-19 Vaccine (#1) [facility] [code = COVID-19 Vaccine (#1)] Future Scheduled Test 1972 00:00:00 COVID-19 Vaccine (#1) [facility] [code = COVID-19 Vaccine (#1)] Future Scheduled Test 1972 00:00:00 COVID-19 Vaccine (#1) [facility] [code = COVID-19 Vaccine (#1)] Future Scheduled Test 1972 00:00:00 COVID-19 Vaccine (#1) [facility] [code = COVID-19 Vaccine (#1)] Future Scheduled Test 1972 00:00:00 COVID-19 Vaccine (#1) [facility] [code = COVID-19 Vaccine (#1)] Future Scheduled Test 1972 00:00:00 COVID-19 Vaccine (#1) [facility] [code = COVID-19 Vaccine (#1)] Future Scheduled Test 1972 00:00:00 COVID-19 Vaccine (#1) [facility] [code = COVID-19 Vaccine (#1)] Encounters Start End Encounter Admission Attending Care Care Encounter Source Date/Time Date/Time Type Type Clinicians Facility Department ID 2022-01-01 Outpatient Ahrris, [facility] [id number] Common 16:25:01 Ramon [facility] 2021-06-12 Outpatient Harris, STLMLC STLMLC [id number] Common 08:39:02 Ramon [facility] 2021-04-04 Outpatient Harris, STLMLC STLMLC [id number] Common 09:42:01 Ramon [facility] 2021-03-20 Outpatient Harris, STLMLC STLMLC [id number] Common 07:56:00 Ramon [facility] 2021-03-16 Outpatient Harris, STLMLC STLMLC [id number] Common 11:00:02 Ramon [facility] 2021-03-15 Outpatient Harris, STLMLC STLMLC [id number] Common 14:13:57 Ramon [facility] 2021-03-15 Outpatient Harris, STLMLC STLMLC [id number] Common 14:12:32 Ramon [facility] 2021-03-15 Outpatient Harris, STLMLC STLMLC [id number] Common 13:53:19 Ramon 12212 [facility] 2021-03-15 Outpatient Harris, STLMLC STLMLC [id number] Common 13:19:14 Ramon 74298 [facility] 2021-03-15 Outpatient Harris, STLMLC STLMLC [id number] Common 13:01:24 Ramon 88874 [facility] 2021-03-15 Outpatient Harris, STLMLC STLMLC [id number] Common 12:54:29 Ramon 59298 [facility] 2021-03-15 Outpatient Harris, STLMLC STLMLC [id number] Common 12:43:28 Ramon 44987 [facility] 2021-03-15 Outpatient Harris, STLMLC STLMLC [id number] Common 12:42:21 Ramon 66641 [facility] 2021-03-15 Outpatient Harris, STLMLC STLMLC [id number] Common 12:41:34 Ramon 40583 [facility] 2021-03-15 Outpatient Harris, STLMLC STLMLC [id number] Common 12:41:12 Ramon 05926 [facility] 2021-03-15 Outpatient Harris, STLMLC STLMLC [id number] Common 12:31:21 Ramon 95103 [facility] 2021-03-15 Outpatient Harris, STLMLC STLMLC [id number] Common 12:14:34 Ramon 53177 [facility] 2021-03-15 Outpatient Harris, STLMLC STLMLC [id number] Common 12:04:53 Ramon 58137 [facility] 2021-03-15 Outpatient Harris, STLMLC STLMLC [id number] Common 12:04:45 Ramon 82815 [facility] 2021-03-15 Outpatient Harris, STLMLC STLMLC [id number] Common 11:32:39 Ramon 99117 [facility] 2021-03-15 Outpatient Harris, STLMLC STLMLC [id number] Common 11:22:17 Ramon 30936 [facility] 2022-07-06 2022-07-06 Outpatient SFA SFA [id number] [place] 11:19:00 11:19:00 0519 F Kenn 2022-06-25 2022-06-25 Outpatient SFA SFA [id number] [place] 15:01:04 15:01:04 0508 F Kenn 2021-08-07 2021-08-07 (TEL) STLMLC STLMLC [id number] Co mmon 00:00:00 00:00:00 [facility] 2021-04-19 2021-04-19 (TEL) STLMLC STLMLC [id number] Co mmon 00:00:00 00:00:00 [facility] 2021-04-18 2021-04-18 OFFICE STLMLC STLMLC [id number] Co mmon 00:00:00 00:00:00 VISIT EST Spir it PT LEVEL 3 - [facility] 2021-03-20 2021-03-20 OFFICE STLMLC STLMLC [id number] Co mmon 00:00:00 00:00:00 VISIT EST Spir it PT LEVEL 3 - [facility] 2021-03-16 2021-03-16 (TEL) STLMLC STLMLC [id number] Co mmon 00:00:00 00:00:00 [facility] 2021-03-16 2021-03-16 (TEL) STLMLC STLMLC [id number] Co mmon 00:00:00 00:00:00 [facility] 2021-02-21 2021-02-21 (TEL) STLMLC STLMLC [id number] Co mmon 00:00:00 00:00:00 [facility] 2021-01-03 2021-01-03 (TEL) STLMLC STLMLC [id number] Co mmon 00:00:00 00:00:00 [facility] 2020-11-29 2020-11-29 (TEL) STLMLC STLMLC [id number] Co mmon 00:00:00 00:00:00 [facility] 2020-11-25 2020-11-25 (TEL) STLMLC STLMLC [id number] Co mmon 00:00:00 00:00:00 [facility] 2020-11-24 2020-11-24 OFFICE STLMLC STLMLC [id number] Co mmon 00:00:00 00:00:00 VISIT [facility] PT [facility] LEVEL 4 [facility] 2020-11-22 2020-11-22 Outpatient PRIV PRIV [id number] [facility] 00:00:00 00:00:00 [id number] [facility] 2020-11-22 2020-11-22 Outpatient PRIV PRIV [id number] [facility] 00:00:00 00:00:00 [id number] [facility] 2020-11-16 2020-11-16 (TEL) STLMLC STLMLC [id number] Co mmon 00:00:00 00:00:00 [facility] 2020-11-14 2020-11-14 OFFICE STLMLC STLMLC [id number] Co mmon 00:00:00 00:00:00 VISIT [facility] - [facility] LEVEL 4 [facility] 2020-11-14 2020-11-14 (TEL) STLMLC STLMLC [id number] Co mmon 00:00:00 00:00:00 [facility] 2020-10-12 2020-10-12 OFFICE STLMLC STLMLC [id number] Co mmon 00:00:00 00:00:00 VISIT [facility] - [facility] LEVEL 4 [facility] 2020-09-14 2020-09-14 OFFICE STLMLC STLMLC [id number] Co mmon 00:00:00 00:00:00 [facility]IT [facility] - [facility] LEVEL 4 [facility] 2020-08-15 2020-08-15 OFFICE STLMLC STLMLC [id number] Co mmon 00:00:00 00:00:00 [facility]IT [facility] - [facility] LEVEL [address] [place] [address] 2020-08-02 2020-08-02 Outpatient STLMLC STLMLC [id number] Common 00:00:00 00:00:00 [facility] 2020-08-01 2020-08-01 Outpatient STLMLC STLMLC [id number] Common 00:00:00 00:00:00 [facility] 2020-06-27 2020-06-27 Outpatient STLMLC STLMLC [id number] Common 00:00:00 00:00:00 [facility] 2020-06-08 2020-06-08 Outpatient STLMLC STLMLC [id number] Common 00:00:00 00:00:00 [facility] 2020-06-01 2020-06-02 Outpatient nullFlavo MNA [id number] Memoria 20:15:00 04:59:59 r Neurology 00 l Samantha Jensen 2020-06-01 2020-06-02 Outpatient nullFlavo MNA [id number] [facility] 20:15:00 04:59:59 r Neurology 00 l Samantha Jensen 2020-06-02 2020-06-02 Outpatient STLMLC STLMLC [id number] Common 00:00:00 00:00:00 [facility] 2020-06-01 2020-06-01 Outpatient MIGUEL Gudino [facility] [id number] 15:15:00 23:59:59 Hugh Richi Oconnell 2020-06-01 2020-06-01 Outpatient DONNELL JACOBO [id number] [facility] 15:15:00 15:15:00 00 oscar Jensen 2020-05-09 2020-05-09 Outpatient STLMLC STLMLC [id number] Common 00:00:00 00:00:00 [facility] 2020-05-04 2020-05-04 Outpatient STLMLC STLMLC [id number] Common 00:00:00 00:00:00 [facility] 2020-05-04 2020-05-04 Outpatient STLMLC STLMLC [id number] Common 00:00:00 00:00:00 [facility] 2020-04-08 2020-04-08 Outpatient STLMLC STLMLC [id number] Common 00:00:00 00:00:00 [facility] 2020-02-08 2020-02-08 Outpatient STLMLC STLMLC [id number] Common 00:00:00 00:00:00 [facility] 2019-12-31 2019-12-31 Outpatient STLMLC STLMLC [id number] Common 00:00:00 00:00:00 [facility] 2019-11-11 2019-11-11 Outpatient STLMLC STLMLC [id number] Common 00:00:00 00:00:00 [facility] 2019-11-11 2019-11-11 Outpatient STLMLC STLMLC [id number] Common 00:00:00 00:00:00 [facility] 2019-10-28 2019-10-28 Outpatient [facility] [id number] Common 13:20:00 13:20:[address] [facility] 2019-08-07 2019-08-07 Outpatient [facility] [id number] Common 10:43:00 10:43:00 t [facility] [address] [facility] 2019-07-06 2019-07-06 Outpatient [facility] [id number] Common 14:00:00 14:00:[address] [facility] 2016-02-06 2016-02-10 Inpatient nullFlavo [facility] [id number] Memoria 10:32:00 21:10:[address] [facility] 2016-02-06 2016-02-10 Inpatient [facility]Flavo [facility] [id number] [facility] 10:32:00 21:10:[address] [place] [address] [facility] 2016-02-06 2016-02-10 Outpatient Jaden [facility] [id number] 04:32:00 15:10:00 Chelita Monreal 2015-08-10 2015-08-10 EC nullFlavo [facility] [id number] Memoria 20:16:00 23:08:00 Emergency r Mikey [address] [facility] 2015-08-10 2015-08-10 EC nullFlavo [facility] [id number] Memoria 20:16:00 23:08:00 Emergency [place] [address] [facility] 2015-08-10 2015-08-10 Outpatient Liz [facility] [id number] 15:16:00 18:08:00 Luke Marimar Jose David 2014-09-01 2014-09-01 EC nullFlavo [place] [id number] [facility] 04:03:00 05:10:00 Emergency r Convenient 08 l Center [facility] vonnie 2014-09-01 2014-09-01 EC nullFlavo [place] [id number] [facility] 04:03:00 05:10:00 Emergency r [facility] 08 l Center [facility] vonnie 2014-08-31 2014-09-01 Outpatient Robert Chao [facility] [id number] 23:03:00 00:10:00 Camron 08 2013-09-21 2013-09-21 EC nullFlavo [facility] [id number] [facility] 04:13:00 05:19:00 Emergency [place] [address] [facility] 2013-09-21 2013-09-21 EC nullFlavo [facility] [id number] Memoria 04:13:00 05:19:00 Emergency r Mikey 07 l [facility] 2013-09-20 2013-09-21 Outpatient Elver, 2.16.840. 2.16.840.1. 3 [id number] 23:13:00 00:19:00 Lazaro [id number] 07 Cody 3.615.0.1 [id number] 17 8937-02-12 2013-04-01 Emergency nullFlavo Not Sent [id number] Memoria 15:05:00 16:57:00 r 06 l [place] 2013-04-01 2013-04-01 Outpatient 2.16.840. 2.16.840.1. 3 [id number] [facility] 15:05:00 16:57:00 [id number]. [id number] l 3.615.0.[address] 2013-04-01 2013-04-01 Emergency nullFlavo Not Sent [id number] Memoria 15:05:00 16:57:00 r 06 [facility] Results Test Description Test Time Test Comments Results Result Comments Source COMPREHENSIVE METABOLIC PANEL 2022-06-27 06:52:58 Test Item Value Reference Range Interpretation Comme nts GLUCOSE (test code = 2217) 368 MG/DL 70-99 H BUN (test code = 2208) 35 MG/DL 6-20 H CREATININE (test code = 2.50 MG/DL 0.80-1.40 H 2213) eGFR (2020 CKD-EPI) (test 31 ML/MIN/1.73 >60 L code = 18407) CALC BUN/CREAT (test code = 14 RATIO 6-28 2234) SODIUM (test code = 2231) 137 MEQ/L 133-146 POTASSIUM (test code = 2228) 4.9 MEQ/L 3.5-5.4 CHLORIDE (test code = 2215) 101 MEQ/L 95-107 CARBON DIOXIDE (test code = 16 MEQ/L 19-31 L 2205) CALCIUM (test code = 2209) 9.5 MG/DL 8.5-10.5 PROTEIN, TOTAL (test code = 7.4 G/DL 6.1-8.3 2228) ALBUMIN (test code = 2201) 4.2 G/DL 3.5-5.2 CALC GLOBULIN (test code = 3.2 G/DL 1.9-3.7 2239) CALC A/G RATIO (test code = 1.3 RATIO 1.0-2.6 2233) BILIRUBIN, TOTAL (test code <0.2 MG/DL See_Comment [Automated message] The = 2206) system which ge nerated this result transmit rafia reference range: <=1.2. T he reference range was not u sed to interpret this result as normal/abnormal . ALKALINE PHOSPHATASE (test 177 U/L 40-118 H code = 2204) AST (test code = 2218) 13 U/L 9-50 ALT (test code = 2219) 19 U/L 5-50 LIPID [id number] 06:52:58 Test Item Value Reference Range Interpretation Comments CHOLESTEROL (test 250 MG/DL <200 H code = 2210) TRIGLYCERIDES (test 649 MG/DL <150 H code = 2232) HDL CHOLESTEROL 27 MG/DL >39 L (test code = 2220) CALC LDL CHOL (test (NOTE) MG/DL <100 UNABLE T O CALCULATE A code = 2237) VALID LDL GINNY STEROL WHEN THE TRIGLYCERIDEVAL UE IS GREATER THAN 40 0 MG/DL.UNABLE TO CALCULATE A BRITNEY ID LDL CHOLESTEROL WHE N THE TRIGLYCERIDEVAL UE IS GREATER THAN 40 0 MG/DL. NOTE: CALCULATE D LDL IS BASED ON KLAUDIA -MORGAN METHOD WHICHINC LUDES ADJUSTABLE TRIGLYCERIDE:VL DL CHOLESTEROL RAT IO.THIS FACTOR VARIES B Y MEASURED TRIGLY CERIDE AND NON-HDLCHOL ESTEROL CONCENTRATIONS WITH INCREASED CALCU LATED LDL SEENIN HIGH ER TRIGLYCERIDE OR LOWER NON-HDL SPECIME NS. FOR MOREINFORMATION , SEE CLIENT ANNOUNCE MENT AT [email or web address] CalcLDL-C RISK RATIO LDL/HDL (NOTE) RATIO <3.55 UNABLE T O CALCULATE (test code = 2238) UNLESS OT HERWISE INDICATED, ALL TESTING PERFORMED AT [facility] [employer] [address] [place] [address] 2451 4 LABORATORY DIRE CTOR: MORELIA GATES M.D. [place] NUMBER [id number] [place] [id number] HEMOGLOBIN [id number] 03:00:28 Test Item Value Reference Range Interpretation Comments HEMOGLOBIN A1c (test 10.9 % 4.2-5.6 H AMERIC AN DIABETES code = 24991) ASSOCIATION IDELINES FOR HGB A1C: PREDIABETES/INC REASED RISK . . . . . . . 5 .7-6.4% DIAGNOSIS OF DI ABETES . . . . . . . . . >=6 .5% WITH CONFIRMATION OR APPROPRIATE SYMPTOMS NOTE: ASSAY MAY BE AFFECTED BY HEMOGLOBINOPATH IES (SICKLE CELL ANEMIA, S- C DISEASE, OTHERS) OR LOGAN FICIALLY LOWERED BY DECR EASED RED CELL SURVIVAL ( HEMOLYTIC ANEMIAS, BLOOD LOSS, ETC.). CONSIDER ALTERN ATE TESTING OR LABORATORY C ONSULTATION. HEMOGLOBIN [id number] 00:00:00 Test Item Value Reference Range Interpretation Comments A1C (test code = 4548-4) 8.5 HEMOGLOBIN [id number] 00:00:00 Test Item Value Reference Range Interpretation Comments A1C (test code = 4548-4) 9.5 HEMOGLOBIN [id number] 00:00:00 Test Item Value Reference Range Interpretation Comments A1C (test code = 4548-4) 11.0 UA RFLX MICR CULT IF [id number] 16:41:00 Test Item Value Reference Range Interpretation [...] NG/ML are obtained. - CT HEAD/BRAIN W/O [id number] 15:20:00 FAX: Colleen Mckenzie MD [phone] [place]: St: REG Name: MICHELLE FISHER [facility] : 1970 Age/S: 48/M [address] Unit: [id number] Loc: [place] [address] Phys: Colleen Mckenzie MD Acct: [id number] Dis Date: Status: REG ER PHONE #: [phone] Exam Date: 06/05/2018 1510 FAX #: [phone] Reason: june,h/o brain ca EXAMS: CPT CODE: [id number] CT HEAD/BRAIN W/O CONT 95619 Location: T18 CT head, 06/05/18COMPARISON EXAMS:None of the brain TECHNIQUE: CT examination of the brain was performed without contrast on a helical scanner. Scanning conducted from skull base to vertex in the axial plane acquiringcontiguous 5mm slice thickness . The examination was performed on a [facility] helical CT scanner utilizing low-dose radiation [...] Signed Report (CONTINUED) FAX: Colleen Mckenzie MD [phone] [place]: St: REG Name: MICHELLE FISHER [facility] : 1970 Age/S: 48/M [address] Unit: [id number] Loc: [place] [address] Phys: Colleen Mckenzie MD Acct: [id number] Dis Date: Status: REG ER PHONE #: [phone] Exam Date: 06/05/2018 1510 FAX #: [phone] Reason: june, h/o brain ca EXAMS: CPT CODE: [id number] CT HEAD/BRAIN W/O CONT 42065 (Continued) at 1520 Reported and signed by: Janeen Chacon MD CC: Colleen Mckenzie MD Technologist: CHIDI KATZ Dt/Tm: 06/05/2018 (1520) [email or web address] Orig Print D/T: S: 06/05/2018 (1523 PAGE 2 Signed ReportBASIC METABOLIC [id number] 15:18:00 Test Item Value Reference Range Interpretation [...] 9.3 mg/dL 8.4-10.2 N CA) LIVER FUNCTION [id number] 15:18:00 Test Item Value Reference Range Interpretation [...] U/L 38-126 H (test code = ALKP) [id number] 15:18:00 Test Item Value Reference Range Interpretation Comments LIPASE (test code = LIP) 133 U/L 23-300 N BASIC METABOLIC [id number] 15:16:00 Test Item Value Reference Range Interpretation [...] 9.3 mg/dL 8.4-10.2 N CA) LIVER FUNCTION [id number] 15:16:00 Test Item Value Reference Range Interpretation [...] U/L 38-126 H (test code = ALKP) [id number] 15:16:00 Test Item Value Reference Range Interpretation Comments LIPASE (test code = LIP) U/L 23-300 PROTHROMBIN [id number] 15:07:00 Test Item Value Reference Range Interpretation [...] 3.0 Valvular heart disease 2.0 - 3.0 Atri al fibrillation 2. 0 - 3.03. Mechanica l prosthetic valv es (high risk) 2.5 - 3.5 * If oral anticoagulant t herapy is elected to preventrecurren t myocardial infa rction, an INR of 2.5-3 .5 isrecommended, consistent with Food and Drug Administrationr ecommen dations. THROMBOPLASTIN TIME [id number] 15:07:00 Test Item Value Reference Range Interpretation Comments THROMBOPLASTIN TIME 25.6 SECONDS 23.4-37.0 N Therape utic Range PARTIAL (test code = for Hep hamilton PTT) EFFECTIVE Heparin IU/mL a PTT Seconds0.3 64.3 0.7 88.8 CBC W/AUTO [id number] 15:02:00 Test Item Value Reference Range Interpretation [...] 0.03 x10 3/uL 0.0-0.1 N LACTIC ACID [id number] 15:01:00 Test Item Value Reference Range Interpretation Comments LACTIC ACID POC (test code = 1.17 mmol/L 0.7-2.0 N LACTP) TROPONIN I [id number] 15:01:00 Test Item Value Reference Range Interpretation Comments TROPONIN I RAPID 0.01 ng/mL 0.00-0.079 N ISTAT TRO PONIN I (test code = CRITERIA0.00-0. 08 ng/mL [...] methodology is used. - XR CHEST 1 [id number] 14:53:00 [place]: St: REG -- Name: MICHELLE FISHER [facility] : 1970 Age/S: 48/M [address] Unit #: [id number] Loc: [place] [address] Phys: Isaias Gruber Acct: [id number] Dis Date: Status: REG ER PHONE #: [phone] Exam Date: 06/05/2018 1440 FAX #: [phone] Reason: CODE SEPSIS EXAMS: CPT CODE: [id number] XR CHEST 1 V 08200 EXAM: Portable chest x-ray, one view INDICATION: CODE SEPSIS LOCATION CODE: C3 COMPARISON: None TECHNIQUE: Single Portable AP upright view of the chest DISCUSSION: Mild patchy density involving the right lung base suggest atelectasis and or infiltrative process. Heart and mediastinal contours are unremarkable. No pneumothorax or pleural vision seen. Osseous structures unremarkable. IMPRESSION: 1. Right basilar atelectasis and or early infiltrate at 9893 Reported and signed by: Rodolfo Kim M.D. CC: Technologist: KYARA CERNA RT (R) Trnscrd Date/Time/By: 06/05/2018 (4319) : By: Lizet PAGE 1 Signed Report [place]: St: REG -- Name: MICHELLE FISHER [facility] : 1970 Age/S: 48/M [address] Unit #: [id number] Loc: [place] [address] Phys: Isaias Gruber Acct: [id number] Dis Date: Status: REG ER PHONE #: [phone] Exam Date: 06/05/2018 1440 FAX #: [phone] Reason: CODE SEPSIS EXAMS: CPT CODE: [id number] XR CHEST 1 V 14149 (Continued) Orig Print D/T: S: 06/05/2018 (4556) PAGE 2 Signed ReportCHEM [id number] 11:06:00 Test Item Value Reference Range Interpretation Comments Phosphorus (test code = Phosphorus) 3.3 2.5-4.5 [facility] [id number] 11:06:00 Test Item Value Reference Range Interpretation Comments Magnesium Lvl (test code = Magnesium 1.8 1.8-2.4 Lvl) [id number] 11:06:00 Test Item Value Reference Range Interpretation Comments CO2 (test code = CO2) 27 24-32 [id number] 11:06:00 Test Item Value Reference Range Interpretation Comments Calcium Lvl (test code = Calcium Lvl) 8.7 8.5-10.5 [id number] 11:06:00 Test Item Value Reference Range Interpretation Comments AGAP (test code = AGAP) 10.8 10.0-20.0 [facility] Hospi[id number] 11:06:00 Test Item Value Reference Range Interpretation Comments Chloride Lvl (test code = Chloride Lvl) 104 95-109 [facility] Hos[id number] 11:06:00 Test Item Value Reference Range Interpretation Comments eGFR (test code = eGFR) 56 [facility] Hospi[id number] 11:06:00 Test Item Value Reference Range Interpretation Comments Potassium Lvl (test code = Potassium 3.8 3.5-5.1 Lvl) [facility] Hos[id number] 11:06:00 Test Item Value Reference Range Interpretation Comments Sodium Lvl (test code = Sodium Lvl) 138 135-145 [facility] HospitalHznxdrxDQSBCHKKJPER4139-25-90 11:06:00 Test Item Value Reference Range Interpretation Comments Creatinine Lvl (test code = Creatinine 1.51 0.50-1.40 Lvl) [facility] Hospital[id number] 11:06:00 Test Item Value Reference Range Interpretation Comments BUN (test code = BUN) 22 7-22 [facility] Hos[id number] 11:06:00 Test Item Value Reference Range Interpretation Comments Glucose Lvl (test code = Glucose Lvl) 130 70-99 [facility]dswbdgKUTZZAUPVB3520-85-80 11:06:00 Test Item Value Reference Range Interpretation Comments WBC (test code = WBC) 8.9 3.7-10.4 [facility]BzbmqozVINVUWYWXG0860-26-01 11:06:00 Test Item Value Reference Range Interpretation Comments RBC (test code = RBC) 4.85 4.70-6.10 [facility] NortheastTruyypcVVSEGZEPPC9077-21-00 11:06:00 Test Item Value Reference Range Interpretation Comments MCV (test code = MCV) 87.1 80.0-94.0 [facility]XvfwvxkBONRYPVOLI3876-79-72 11:06:00 Test Item Value Reference Range Interpretation Comments MCHC (test code = MCHC) 32.7 32.0-36.0 [facility] NortheastPzczquyUGMWAKQNMY2996-62-31 11:06:00 Test Item Value Reference Range Interpretation Comments Platelet (test code = Platelet) 251 133-450 [facility] NortheastHwouzxkXXCNRFVKEQ3126-98-19 11:06:00 Test Item Value Reference Range Interpretation Comments RDW (test code = RDW) 13.1 11.5-14.5 [id number] 11:06:00 Test Item Value Reference Range Interpretation Comments Hct (test code = Hct) 42.2 42.0-54.0 [id number] 11:06:00 Test Item Value Reference Range Interpretation Comments Hgb (test code = Hgb) 13.8 14.0-18.0 [facility]StzccgbEBOFAKWZXH3845-17-48 11:06:00 Test Item Value Reference Range Interpretation Comments MPV (test code = MPV) 7.1 7.4-10.4 [id number] 11:06:00 Test Item Value Reference Range Interpretation Comments MCH (test code = MCH) 28.5 pg 27.0-31.0 [facility]FlwecnpEARJBJTDZB3725-76-75 11:06:00 Test Item Value Reference Range Interpretation Comments Monocytes (test code = Monocytes) 5.9 2.0-12.0 [facility]JzzxdkyJHYIPSPWHE5088-83-81 11:06:00 Test Item Value Reference Range Interpretation Comments Lymphocytes (test code = Lymphocytes) 41.2 20.0-40.0 [facility] NortheastCbtafpeRHGUOJSZTG8322-42-58 11:06:00 Test Item Value Reference Range Interpretation Comments Basophils (test code = 0.5 See_Comment [Aut omated message] The Basophils) system which ge nerated this result tra nsmitted reference range : <=1.0. The reference r davey was not used to int erpret this result as normal/abnormal . [facility] NortheastXrbcnyyRIQJKPWLJJ1434-75-38 11:06:00 Test Item Value Reference Range Interpretation Comments Eosinophils (test code = 2.1 See_Comment [A utomated message] The Eosinophils) system which ge nerated this result tra nsmitted reference range : <=4.0. The reference r davey was not used to int erpret this result as normal/abnormal . [facility] NortheastPbputcgIGPDEXSSLE1211-94-09 11:06:00 Test Item Value Reference Range Interpretation Comments Segs-Bands # (test code = Segs-Bands #) 4.5 1.5-8.1 [facility]OjbwkyvBAROIGJZDE9895-64-03 11:06:00 Test Item Value Reference Range Interpretation Comments Lymphocytes # (test code = Lymphocytes 3.7 1.0-5.5 #) [facility] NortheastFoojlagDZXIQDNAAY1147-72-53 11:06:00 Test Item Value Reference Range Interpretation Comments Eosinophils # (test code 0.2 See_Comment [A utomated message] The = Eosinophils #) system whic h generated this result tra nsmitted reference range : <=0.5. The reference r davey was not used to int erpret this result as normal/abnormal . [facility] NortheastOjkcitmNVPIBYEUKE7565-04-91 11:06:00 Test Item Value Reference Range Interpretation Comments Monocytes # (test code 0.5 See_Comment [Aut omated message] The = Monocytes #) system which generated this result tra nsmitted reference range : <=0.8. The reference r davey was not used to int erpret this result as normal/abnormal . [facility] NortheastTkazkklTGYLXEHLXZ2542-23-24 11:06:00 Test Item Value Reference Range Interpretation Comments Segs (test code = Segs) 50.3 45.0-75.0 [facility] YYQXI7637-40-39 11:06:00 Test Item Value Reference Range Interpretation Comments Phosphorus (test code = Phosphorus) 3.3 2.5-4.5 [facility] NBHFK1169-55-64 11:06:00 Test Item Value Reference Range Interpretation Comments Magnesium Lvl (test code = Magnesium 1.8 1.8-2.4 Lvl) [facility]AgkvvlbOTFMSXLSNTGS8356-32-48 11:06:00 Test Item Value Reference Range Interpretation Comments CO2 (test code = CO2) 27 24-32 [facility] HospitalFjtzhamTDWGRXHJCXIB4494-26-14 11:06:00 Test Item Value Reference Range Interpretation Comments Calcium Lvl (test code = Calcium Lvl) 8.7 8.5-10.5 [facility] HospitalVqusnbzBCXVRURALSOT1412-44-11 11:06:00 Test Item Value Reference Range Interpretation Comments AGAP (test code = AGAP) 10.8 10.0-20.0 [facility] HospitalFlnjvonZYBWKQTPGFCZ5460-15-38 11:06:00 Test Item Value Reference Range Interpretation Comments Chloride Lvl (test code = Chloride Lvl) 104 95-109 [facility] HospitalKtbeunnVCPYZPPYEPRW7656-12-96 11:06:00 Test Item Value Reference Range Interpretation Comments eGFR (test code = eGFR) 56 [facility] HospitalBrgnukcBHRSRDYQDHGN0571-07-01 11:06:00 Test Item Value Reference Range Interpretation Comments Potassium Lvl (test code = Potassium 3.8 3.5-5.1 Lvl) [facility] HospitalZxdalwtACKBXNTMHVPY6595-29-56 11:06:00 Test Item Value Reference Range Interpretation Comments Sodium Lvl (test code = Sodium Lvl) 138 135-145 [facility] HospitalXhymdbhAATOGMKGAVIM8429-07-42 11:06:00 Test Item Value Reference Range Interpretation Comments Creatinine Lvl (test code = Creatinine 1.51 0.50-1.40 Lvl) [facility] HospitalZumbxqiKMSIKQHGOWVA2988-36-97 11:06:00 Test Item Value Reference Range Interpretation Comments BUN (test code = BUN) 22 7-22 [facility] HospitalXngjzohNIGCZBSZUZUV0701-93-45 11:06:00 Test Item Value Reference Range Interpretation Comments Glucose Lvl (test code = Glucose Lvl) 130 70-99 [facility]BzhqdxdIBXUJHVTMW3983-34-15 11:06:00 Test Item Value Reference Range Interpretation Comments WBC (test code = WBC) 8.9 3.7-10.4 [facility]2016-12-23 11:06:00 Test Item Value Reference Range Interpretation Comments Phosphorus (test code = Phosphorus) 3.3 2.5-4.5 [facility]AazwenhQKQDZEEVGH0698-00-91 11:06:00 Test Item Value Reference Range Interpretation Comments RBC (test code = RBC) 4.85 4.70-6.10 [facility] NortheastZrcxbdgPBIQNUMMMZ4847-99-31 11:06:00 Test Item Value Reference Range Interpretation Comments MCV (test code = MCV) 87.1 80.0-94.0 [facility]AhcgetkJRDDRQDWMD7891-66-70 11:06:00 Test Item Value Reference Range Interpretation Comments MCHC (test code = MCHC) 32.7 32.0-36.0 [facility] NortheastQhdiovqKGJDSFXDIE7382-81-62 11:06:00 Test Item Value Reference Range Interpretation Comments Platelet (test code = Platelet) 251 133-450 [facility]XyrovvqHGUDWDXIZK4878-12-78 11:06:00 Test Item Value Reference Range Interpretation Comments RDW (test code = RDW) 13.1 11.5-14.5 [facility]OyxjrdpUKZYXWPFQM3047-04-04 11:06:00 Test Item Value Reference Range Interpretation Comments Hct (test code = Hct) 42.2 42.0-54.0 [facility] NortheastEqnqxlxSRROXFFTNF8144-92-27 11:06:00 Test Item Value Reference Range Interpretation Comments Hgb (test code = Hgb) 13.8 14.0-18.0 [facility]KgbfhfuHKZXYCRCIN5998-13-03 11:06:00 Test Item Value Reference Range Interpretation Comments MPV (test code = MPV) 7.1 7.4-10.4 [facility] NortheastQibxrhtDYJIOHMCXG6438-17-38 11:06:00 Test Item Value Reference Range Interpretation Comments MCH (test code = MCH) 28.5 pg 27.0-31.0 [facility]IcjwjpxJKRIRPUHUK1784-09-50 11:06:00 Test Item Value Reference Range Interpretation Comments Monocytes (test code = Monocytes) 5.9 2.0-12.0 [facility]2016-12-23 11:06:00 Test Item Value Reference Range Interpretation Comments Magnesium Lvl (test code = Magnesium 1.8 1.8-2.4 Lvl) [facility] NortheastNzrewspRPSWKMOFDJ2923-97-71 11:06:00 Test Item Value Reference Range Interpretation Comments Lymphocytes (test code = Lymphocytes) 41.2 20.0-40.0 [facility]EfjhmvcPRFGLAEWIH9599-10-30 11:06:00 Test Item Value Reference Range Interpretation Comments Basophils (test code = 0.5 See_Comment [Aut omated message] The Basophils) system which ge nerated this result tra nsmitted reference range : <=1.0. The reference r davey was not used to int erpret this result as normal/abnormal . [facility] NortheastPxsksznCHNIHTDZZN7856-83-47 11:06:00 Test Item Value Reference Range Interpretation Comments Eosinophils (test code = 2.1 See_Comment [A utomated message] The Eosinophils) system which ge nerated this result tra nsmitted reference range : <=4.0. The reference r davey was not used to int erpret this result as normal/abnormal . [facility] NortheastRughxxyXRJVPDFMAQ3625-29-35 11:06:00 Test Item Value Reference Range Interpretation Comments Segs-Bands # (test code = Segs-Bands #) 4.5 1.5-8.1 [facility] NortheastRwzlyrtJETHRPMVMO6726-46-60 11:06:00 Test Item Value Reference Range Interpretation Comments Lymphocytes # (test code = Lymphocytes 3.7 1.0-5.5 #) [facility] NortheastQpyokpvUAKVCJMSKN1249-15-66 11:06:00 Test Item Value Reference Range Interpretation Comments Eosinophils # (test code 0.2 See_Comment [A utomated message] The = Eosinophils #) system whic h generated this result tra nsmitted reference range : <=0.5. The reference r davey was not used to int erpret this result as normal/abnormal . [facility] NortheastRftcdcjPRWENNWJAN2373-67-01 11:06:00 Test Item Value Reference Range Interpretation Comments Monocytes # (test code 0.5 See_Comment [Aut omated message] The = Monocytes #) system which generated this result tra nsmitted reference range : <=0.8. The reference r davey was not used to int erpret this result as normal/abnormal . [facility] NortheastFvebnrkHQHVFKSAAY4217-57-05 11:06:00 Test Item Value Reference Range Interpretation Comments Segs (test code = Segs) 50.3 45.0-75.0 [facility] HospitalGfqlnqwFAHJSRUPQLIP9276-93-49 11:06:00 Test Item Value Reference Range Interpretation Comments CO2 (test code = CO2) 27 24-32 [facility] HospitalWmgpvvrLREOPUFRBPXP6903-93-38 11:06:00 Test Item Value Reference Range Interpretation Comments Calcium Lvl (test code = Calcium Lvl) 8.7 8.5-10.5 [facility] HospitalSomugdhGGJUHNKNVEUG7817-19-03 11:06:00 Test Item Value Reference Range Interpretation Comments AGAP (test code = AGAP) 10.8 10.0-20.0 [facility] HospitalMkczhuaFGDCZHRTRJHN5912-18-68 11:06:00 Test Item Value Reference Range Interpretation Comments Chloride Lvl (test code = Chloride Lvl) 104 95-109 [facility] HospitalUcnqhgtQIMYRRWMUTYT7447-99-25 11:06:00 Test Item Value Reference Range Interpretation Comments eGFR (test code = eGFR) 56 [facility] HospitalNcozyyxQBHVIQFSNNTP6821-64-76 11:06:00 Test Item Value Reference Range Interpretation Comments Potassium Lvl (test code = Potassium 3.8 3.5-5.1 Lvl) [facility] HospitalCnddwoqASATNLPTUYTN9518-17-53 11:06:00 Test Item Value Reference Range Interpretation Comments Sodium Lvl (test code = Sodium Lvl) 138 135-145 [facility] HospitalKiecrcoTDBGGOPITMHM6027-42-56 11:06:00 Test Item Value Reference Range Interpretation Comments Creatinine Lvl (test code = Creatinine 1.51 0.50-1.40 Lvl) [facility] HospitalEvlkhwjGMROSIYGBTOC1557-26-82 11:06:00 Test Item Value Reference Range Interpretation Comments BUN (test code = BUN) 22 7-22 [facility] HospitalXbduipmCCKWOINTBIBJ4037-69-41 11:06:00 Test Item Value Reference Range Interpretation Comments Glucose Lvl (test code = Glucose Lvl) 130 70-99 [facility]IhftnrkVRINOAUZMQ3371-56-86 11:06:00 Test Item Value Reference Range Interpretation Comments WBC (test code = WBC) 8.9 3.7-10.4 [facility]QtkqubzROZKNFPVRR3127-02-87 11:06:00 Test Item Value Reference Range Interpretation Comments RBC (test code = RBC) 4.85 4.70-6.10 [facility]IpfbfnwFSVTYJOLWJ5925-68-06 11:06:00 Test Item Value Reference Range Interpretation Comments MCV (test code = MCV) 87.1 80.0-94.0 [facility] NortheastHfryejnDFTRDGFMSR4639-69-81 11:06:00 Test Item Value Reference Range Interpretation Comments MCHC (test code = MCHC) 32.7 32.0-36.0 [facility] NortheastBfiuycwNUULUYOTJA9435-37-30 11:06:00 Test Item Value Reference Range Interpretation Comments Platelet (test code = Platelet) 251 133-450 [facility] NortheastUlkuowiGUWGGWLCVX9255-64-81 11:06:00 Test Item Value Reference Range Interpretation Comments RDW (test code = RDW) 13.1 11.5-14.5 [facility] NortheastYmzpsjxNAYBMMCGXX6647-05-82 11:06:00 Test Item Value Reference Range Interpretation Comments Hct (test code = Hct) 42.2 42.0-54.0 [facility] NortheastWpslxznETPKXXSYIR3110-67-17 11:06:00 Test Item Value Reference Range Interpretation Comments Hgb (test code = Hgb) 13.8 14.0-18.0 [facility] NortheastEcupvfaJQWVGNXDXS3244-31-35 11:06:00 Test Item Value Reference Range Interpretation Comments MPV (test code = MPV) 7.1 7.4-10.4 [facility] NortheastCdbutjyQPAQXELGYP6829-87-29 11:06:00 Test Item Value Reference Range Interpretation Comments MCH (test code = MCH) 28.5 pg 27.0-31.0 [facility]2016-12-23 11:06:00 Test Item Value Reference Range Interpretation Comments Phosphorus (test code = Phosphorus) 3.3 2.5-4.5 [facility]2016-12-23 11:06:00 Test Item Value Reference Range Interpretation Comments Magnesium Lvl (test code = Magnesium 1.8 1.8-2.4 Lvl) [facility] HospitalHlslevkFOANUMHXPAYW0366-14-53 11:06:00 Test Item Value Reference Range Interpretation Comments CO2 (test code = CO2) 27 24-32 [facility] HospitalPafbnmxPEUDTXYUQEEY8213-88-59 11:06:00 Test Item Value Reference Range Interpretation Comments Calcium Lvl (test code = Calcium Lvl) 8.7 8.5-10.5 [facility] HospitalDwktudfOPELZJYIDVXA3270-66-62 11:06:00 Test Item Value Reference Range Interpretation Comments AGAP (test code = AGAP) 10.8 10.0-20.0 [facility] HospitalPfxshoxQDBBLBGDSHQB9185-80-18 11:06:00 Test Item Value Reference Range Interpretation Comments Chloride Lvl (test code = Chloride Lvl) 104 95-109 [facility] HospitalOewqzpvTXJHBLXFZWFI4445-91-54 11:06:00 Test Item Value Reference Range Interpretation Comments eGFR (test code = eGFR) 56 [facility] HospitalOzvkevcKFTSNXQMANSQ1971-80-72 11:06:00 Test Item Value Reference Range Interpretation Comments Potassium Lvl (test code = Potassium 3.8 3.5-5.1 Lvl) [facility] HospitalGqkocqyAASDGNVIOGOO0642-78-54 11:06:00 Test Item Value Reference Range Interpretation Comments Sodium Lvl (test code = Sodium Lvl) 138 135-145 [facility] HospitalCmqjarrAHDCUVUQCXAO1856-32-76 11:06:00 Test Item Value Reference Range Interpretation Comments Creatinine Lvl (test code = Creatinine 1.51 0.50-1.40 Lvl) [facility]OsvoqyoKVJPZSEGCE7324-47-66 11:06:00 Test Item Value Reference Range Interpretation Comments Monocytes (test code = Monocytes) 5.9 2.0-12.0 [facility] HospitalIibfkuxIVSRWTKNZQSH1189-25-15 11:06:00 Test Item Value Reference Range Interpretation Comments BUN (test code = BUN) 22 7-22 [facility] HospitalTpbmrnhTGDLPSSCIJFO2113-07-16 11:06:00 Test Item Value Reference Range Interpretation Comments Glucose Lvl (test code = Glucose Lvl) 130 70-99 [facility]XwsqjcpZKDWWLNRQP0292-52-61 11:06:00 Test Item Value Reference Range Interpretation Comments WBC (test code = WBC) 8.9 3.7-10.4 [facility]GqhwgvaTVRYQKZGSO4069-87-65 11:06:00 Test Item Value Reference Range Interpretation Comments RBC (test code = RBC) 4.85 4.70-6.10 [facility] NortheastIlrcxdfVFZNTNUAYB2173-35-16 11:06:00 Test Item Value Reference Range Interpretation Comments MCV (test code = MCV) 87.1 80.0-94.0 [facility] NortheastEvrsroyRXKUDHSCJV1210-61-50 11:06:00 Test Item Value Reference Range Interpretation Comments MCHC (test code = MCHC) 32.7 32.0-36.0 [facility] NortheastZizfqdxRGWSQUQQAQ6422-98-66 11:06:00 Test Item Value Reference Range Interpretation Comments Platelet (test code = Platelet) 251 133-450 [facility] NortheastWoqsggnAUJHGFWJZC6210-14-36 11:06:00 Test Item Value Reference Range Interpretation Comments RDW (test code = RDW) 13.1 11.5-14.5 [facility] NortheastEawbacrKUZPACFTBA2710-88-35 11:06:00 Test Item Value Reference Range Interpretation Comments Hct (test code = Hct) 42.2 42.0-54.0 [facility] NortheastExgrryaPUFKHGMQIN6074-04-69 11:06:00 Test Item Value Reference Range Interpretation Comments Hgb (test code = Hgb) 13.8 14.0-18.0 [facility] NortheastOyyyuuhDHJPGUVKOG0907-16-39 11:06:00 Test Item Value Reference Range Interpretation Comments Lymphocytes (test code = Lymphocytes) 41.2 20.0-40.0 [facility] NortheastTkggujeCAWLXHRDVO0274-29-02 11:06:00 Test Item Value Reference Range Interpretation Comments MPV (test code = MPV) 7.1 7.4-10.4 [facility] NortheastTdwgxqpIDSTJKIRYH7637-74-73 11:06:00 Test Item Value Reference Range Interpretation Comments MCH (test code = MCH) 28.5 pg 27.0-31.0 [facility] NortheastVhgndkhKGEZSVYKRB6855-67-60 11:06:00 Test Item Value Reference Range Interpretation Comments Monocytes (test code = Monocytes) 5.9 2.0-12.0 [facility] NortheastOyovvadAOFEHDQMOG6383-62-69 11:06:00 Test Item Value Reference Range Interpretation Comments Lymphocytes (test code = Lymphocytes) 41.2 20.0-40.0 [facility] NortheastCxxzeelQWEAUHRQPU7702-45-96 11:06:00 Test Item Value Reference Range Interpretation Comments Basophils (test code = 0.5 See_Comment [Aut omated message] The Basophils) system which ge nerated this result tra nsmitted reference range : <=1.0. The reference r davey was not used to int erpret this result as normal/abnormal . [facility] NortheastBlyalwzKFBBZTEFIB5603-74-90 11:06:00 Test Item Value Reference Range Interpretation Comments Eosinophils (test code = 2.1 See_Comment [A utomated message] The Eosinophils) system which ge nerated this result tra nsmitted reference range : <=4.0. The reference r davey was not used to int erpret this result as normal/abnormal . [facility] NortheastAngjihrHKFOXXBBVY0603-17-56 11:06:00 Test Item Value Reference Range Interpretation Comments Segs-Bands # (test code = Segs-Bands #) 4.5 1.5-8.1 [facility] NortheastCsqrvgzPVIPYLAXCD7940-41-10 11:06:00 Test Item Value Reference Range Interpretation Comments Lymphocytes # (test code = Lymphocytes 3.7 1.0-5.5 #) [facility] NortheastCrqonrzPOLVGDRXUO8342-66-80 11:06:00 Test Item Value Reference Range Interpretation Comments Eosinophils # (test code 0.2 See_Comment [A utomated message] The = Eosinophils #) system whic h generated this result tra nsmitted reference range : <=0.5. The reference r davey was not used to int erpret this result as normal/abnormal . [facility] NortheastOlfaydqTUMGSKXWXS9149-98-06 11:06:00 Test Item Value Reference Range Interpretation Comments Monocytes # (test code 0.5 See_Comment [Aut omated message] The = Monocytes #) system which generated this result tra nsmitted reference range : <=0.8. The reference r davey was not used to int erpret this result as normal/abnormal . [facility] NortheastOhzramlKGLVHEVFDC8221-95-88 11:06:00 Test Item Value Reference Range Interpretation Comments Basophils (test code = 0.5 See_Comment [Aut omated message] The Basophils) system which ge nerated this result tra nsmitted reference range : <=1.0. The reference r davey was not used to int erpret this result as normal/abnormal . [facility] NortheastYycibykCPKPQPQCHB9839-59-76 11:06:00 Test Item Value Reference Range Interpretation Comments Segs (test code = Segs) 50.3 45.0-75.0 [facility] NortheastUzxffikIWRAZYBZJZ3245-42-44 11:06:00 Test Item Value Reference Range Interpretation Comments Eosinophils (test code = 2.1 See_Comment [A utomated message] The Eosinophils) system which ge nerated this result tra nsmitted reference range : <=4.0. The reference r davey was not used to int erpret this result as normal/abnormal . [facility] NortheastXpegjnwLFHUTKEKMQ6848-94-29 11:06:00 Test Item Value Reference Range Interpretation Comments Segs-Bands # (test code = Segs-Bands #) 4.5 1.5-8.1 [facility] NortheastEetbjfzGTWGERKRRI0573-47-19 11:06:00 Test Item Value Reference Range Interpretation Comments Lymphocytes # (test code = Lymphocytes 3.7 1.0-5.5 #) [facility] NortheastMlltogkIQLMSIHHJV6518-83-85 11:06:00 Test Item Value Reference Range Interpretation Comments Eosinophils # (test code 0.2 See_Comment [A utomated message] The = Eosinophils #) system whic h generated this result tra nsmitted reference range : <=0.5. The reference r davey was not used to int erpret this result as normal/abnormal . [facility] NortheastVwklkpoIKYUNPQUUS9458-25-78 11:06:00 Test Item Value Reference Range Interpretation Comments Monocytes # (test code 0.5 See_Comment [Aut omated message] The = Monocytes #) system which generated this result tra nsmitted reference range : <=0.8. The reference r davey was not used to int erpret this result as normal/abnormal . [facility] NortheastYaiikhqDDTSONGNGF6704-16-83 11:06:00 Test Item Value Reference Range Interpretation Comments Segs (test code = Segs) 50.3 45.0-75.0 [facility] EWFTJ8983-51-09 11:06:00 Test Item Value Reference Range Interpretation Comments Phosphorus (test code = Phosphorus) 3.3 2.5-4.5 [facility]2016-12-23 11:06:00 Test Item Value Reference Range Interpretation Comments Magnesium Lvl (test code = Magnesium 1.8 1.8-2.4 Lvl) [facility] HospitalKpnlpwmHFVRYTRMZAFK3850-70-77 11:06:00 Test Item Value Reference Range Interpretation Comments CO2 (test code = CO2) 27 24-32 [facility] HospitalKjnteyrGONTRIFAOCXC9704-60-46 11:06:00 Test Item Value Reference Range Interpretation Comments Calcium Lvl (test code = Calcium Lvl) 8.7 8.5-10.5 [facility] HospitalBrrttimWDGEEZLTTEOP8144-34-01 11:06:00 Test Item Value Reference Range Interpretation Comments AGAP (test code = AGAP) 10.8 10.0-20.0 [facility] HospitalFuyoylzOOKUPQAURRJJ0044-46-71 11:06:00 Test Item Value Reference Range Interpretation Comments Chloride Lvl (test code = Chloride Lvl) 104 95-109 [facility] HospitalIuaekhiXSARZAWPYKKW7233-65-11 11:06:00 Test Item Value Reference Range Interpretation Comments eGFR (test code = eGFR) 56 [facility] HospitalKohgeuvYFEYPXUWBAAU9613-93-32 11:06:00 Test Item Value Reference Range Interpretation Comments Potassium Lvl (test code = Potassium 3.8 3.5-5.1 Lvl) [facility] HospitalIsbwwnvVDTEYNSLMYWP4414-42-37 11:06:00 Test Item Value Reference Range Interpretation Comments Sodium Lvl (test code = Sodium Lvl) 138 135-145 [facility] HospitalJfefhcrYUKEQXTZZUZY4099-92-80 11:06:00 Test Item Value Reference Range Interpretation Comments Creatinine Lvl (test code = Creatinine 1.51 0.50-1.40 Lvl) [facility] HospitalEenyrvaWGWONQKMFMAC6768-68-94 11:06:00 Test Item Value Reference Range Interpretation Comments BUN (test code = BUN) 22 7-22 [facility] HospitalQyijddvKAQCOWTOJCMK4672-75-84 11:06:00 Test Item Value Reference Range Interpretation Comments Glucose Lvl (test code = Glucose Lvl) 130 70-99 [facility] NortheastBlfdjzxQSTMKQXADW5659-53-26 11:06:00 Test Item Value Reference Range Interpretation Comments WBC (test code = WBC) 8.9 3.7-10.4 [facility] NortheastBjbezyjNGKRPVAKNJ0049-03-59 11:06:00 Test Item Value Reference Range Interpretation Comments RBC (test code = RBC) 4.85 4.70-6.10 [facility] NortheastIhudxxeOKENRYTEYT5535-64-87 11:06:00 Test Item Value Reference Range Interpretation Comments MCV (test code = MCV) 87.1 80.0-94.0 [facility] NortheastRikfbyzJAUHMVGMUE5021-55-18 11:06:00 Test Item Value Reference Range Interpretation Comments MCHC (test code = MCHC) 32.7 32.0-36.0 [facility] NortheastTanzrldERAVVEJQKV8973-05-96 11:06:00 Test Item Value Reference Range Interpretation Comments Platelet (test code = Platelet) 251 133-450 [facility] NortheastRccpajxEWGONKXNIP0245-07-09 11:06:00 Test Item Value Reference Range Interpretation Comments RDW (test code = RDW) 13.1 11.5-14.5 [facility] NortheastRgorjqcUZDWSOMIYH2117-74-86 11:06:00 Test Item Value Reference Range Interpretation Comments Hct (test code = Hct) 42.2 42.0-54.0 [facility] NortheastOrevyyqRQNSVXKSYD3849-64-41 11:06:00 Test Item Value Reference Range Interpretation Comments Hgb (test code = Hgb) 13.8 14.0-18.0 [facility] NortheastPvvjwwwTNDQFTGDAA7534-17-35 11:06:00 Test Item Value Reference Range Interpretation Comments MPV (test code = MPV) 7.1 7.4-10.4 [facility] NortheastYhedeneHHUEIESIHJ3267-33-76 11:06:00 Test Item Value Reference Range Interpretation Comments MCH (test code = MCH) 28.5 pg 27.0-31.0 [facility] NortheastLkutmwlPIFUYBEWFO4987-09-44 11:06:00 Test Item Value Reference Range Interpretation Comments Monocytes (test code = Monocytes) 5.9 2.0-12.0 [facility]JbqovnsNUUKKSYZWS4775-50-34 11:06:00 Test Item Value Reference Range Interpretation Comments Lymphocytes (test code = Lymphocytes) 41.2 20.0-40.0 [facility]RklpgjxRAWUYCTLLL3027-18-05 11:06:00 Test Item Value Reference Range Interpretation Comments Basophils (test code = 0.5 See_Comment [Aut omated message] The Basophils) system which ge nerated this result tra nsmitted reference range : <=1.0. The reference r davey was not used to int erpret this result as normal/abnormal . [facility]QmrhzsxSLQZEDQZDE1072-73-44 11:06:00 Test Item Value Reference Range Interpretation Comments Eosinophils (test code = 2.1 See_Comment [A utomated message] The Eosinophils) system which ge nerated this result tra nsmitted reference range : <=4.0. The reference r davey was not used to int erpret this result as normal/abnormal . [facility]PnzreogDDZINFVIGN9355-60-16 11:06:00 Test Item Value Reference Range Interpretation Comments Segs-Bands # (test code = Segs-Bands #) 4.5 1.5-8.1 [facility]QivezfhZATRJNYMMN5576-62-16 11:06:00 Test Item Value Reference Range Interpretation Comments Lymphocytes # (test code = Lymphocytes 3.7 1.0-5.5 #) [facility] NortheastBijtumkAFIWQOQLOY5717-56-05 11:06:00 Test Item Value Reference Range Interpretation Comments Eosinophils # (test code 0.2 See_Comment [A utomated message] The = Eosinophils #) system whic h generated this result tra nsmitted reference range : <=0.5. The reference r davey was not used to int erpret this result as normal/abnormal . [facility] NortheastYxrtodlTOPUFHPXMO5765-45-46 11:06:00 Test Item Value Reference Range Interpretation Comments Monocytes # (test code 0.5 See_Comment [Aut omated message] The = Monocytes #) system which generated this result tra nsmitted reference range : <=0.8. The reference r davey was not used to int erpret this result as normal/abnormal . [facility] NortheastDcwicocYFFLCLAIXF9650-73-65 11:06:00 Test Item Value Reference Range Interpretation Comments Segs (test code = Segs) 50.3 45.0-75.0 [facility] RDTMD3219-75-14 11:06:00 Test Item Value Reference Range Interpretation Comments Phosphorus (test code = Phosphorus) 3.3 2.5-4.5 [facility]2016-12-23 11:06:00 Test Item Value Reference Range Interpretation Comments Magnesium Lvl (test code = Magnesium 1.8 1.8-2.4 Lvl) [facility]FcgkoszHGHTABTXYLHJ7994-13-92 11:06:00 Test Item Value Reference Range Interpretation Comments CO2 (test code = CO2) 27 24-32 [facility] HospitalKyjgiqbQBKGPPEPSULE3560-25-01 11:06:00 Test Item Value Reference Range Interpretation Comments Calcium Lvl (test code = Calcium Lvl) 8.7 8.5-10.5 [facility] HospitalQhcriesXMLMDQQETMQE3806-31-25 11:06:00 Test Item Value Reference Range Interpretation Comments AGAP (test code = AGAP) 10.8 10.0-20.0 [facility] HospitalTaosspoATNQKCWKGUHN4471-49-25 11:06:00 Test Item Value Reference Range Interpretation Comments Chloride Lvl (test code = Chloride Lvl) 104 95-109 [facility] HospitalUvbeizeTGXSYILJZSEG1155-08-19 11:06:00 Test Item Value Reference Range Interpretation Comments eGFR (test code = eGFR) 56 [facility] HospitalUlnjtuvUSJGSCDOZZQF2251-59-80 11:06:00 Test Item Value Reference Range Interpretation Comments Potassium Lvl (test code = Potassium 3.8 3.5-5.1 Lvl) [facility] HospitalLmbzxalLUFZUHRFAABS0060-74-10 11:06:00 Test Item Value Reference Range Interpretation Comments Sodium Lvl (test code = Sodium Lvl) 138 135-145 [facility] HospitalAzyavarIKJBOLTXCSRT4349-27-67 11:06:00 Test Item Value Reference Range Interpretation Comments Creatinine Lvl (test code = Creatinine 1.51 0.50-1.40 Lvl) [facility] HospitalZycuelaLOJCAIERZLZR5961-51-04 11:06:00 Test Item Value Reference Range Interpretation Comments BUN (test code = BUN) 22 7-22 [facility] HospitalFkjwbefEOJGXIKZEWIE3242-11-18 11:06:00 Test Item Value Reference Range Interpretation Comments Glucose Lvl (test code = Glucose Lvl) 130 70-99 [facility]ZcxkwdbOEUBGKUUDX2390-99-50 11:06:00 Test Item Value Reference Range Interpretation Comments WBC (test code = WBC) 8.9 3.7-10.4 [facility]YqvyuatEWRDZBBCQR6980-33-08 11:06:00 Test Item Value Reference Range Interpretation Comments RBC (test code = RBC) 4.85 4.70-6.10 [facility]MkqszixXFYKQNUFTO7724-32-08 11:06:00 Test Item Value Reference Range Interpretation Comments MCV (test code = MCV) 87.1 80.0-94.0 [facility]CocvxbvFFMAZZLOQY4160-72-74 11:06:00 Test Item Value Reference Range Interpretation Comments MCHC (test code = MCHC) 32.7 32.0-36.0 [facility] NortheastKpasruoPRPJWXVRXY0343-31-82 11:06:00 Test Item Value Reference Range Interpretation Comments Platelet (test code = Platelet) 251 133-450 [facility]VewebgzLIRKBXBVLJ2478-23-16 11:06:00 Test Item Value Reference Range Interpretation Comments RDW (test code = RDW) 13.1 11.5-14.5 [facility]OhixwffBIJLRPNDBV8752-21-79 11:06:00 Test Item Value Reference Range Interpretation Comments Hct (test code = Hct) 42.2 42.0-54.0 [facility] NortheastZwyxbklSICCPURYWP2689-08-52 11:06:00 Test Item Value Reference Range Interpretation Comments Hgb (test code = Hgb) 13.8 14.0-18.0 [facility] NortheastSjfpehmNURMQPWUTV1047-06-81 11:06:00 Test Item Value Reference Range Interpretation Comments MPV (test code = MPV) 7.1 7.4-10.4 [facility]VjlcdtpJLJAYZELLO1269-70-86 11:06:00 Test Item Value Reference Range Interpretation Comments MCH (test code = MCH) 28.5 pg 27.0-31.0 [facility] NortheastMquvandNERTFENWSY8037-98-34 11:06:00 Test Item Value Reference Range Interpretation Comments Monocytes (test code = Monocytes) 5.9 2.0-12.0 [facility]CwptnvcLLPBRBNBMH2630-37-64 11:06:00 Test Item Value Reference Range Interpretation Comments Lymphocytes (test code = Lymphocytes) 41.2 20.0-40.0 [facility] NortheastIiygfagKDWHWLJPIL1694-38-12 11:06:00 Test Item Value Reference Range Interpretation Comments Basophils (test code = 0.5 See_Comment [Aut omated message] The Basophils) system which ge nerated this result tra nsmitted reference range : <=1.0. The reference r davey was not used to int erpret this result as normal/abnormal . [facility] NortheastStdcuppVCORWZWIDT0666-28-30 11:06:00 Test Item Value Reference Range Interpretation Comments Eosinophils (test code = 2.1 See_Comment [A utomated message] The Eosinophils) system which ge nerated this result tra nsmitted reference range : <=4.0. The reference r davey was not used to int erpret this result as normal/abnormal . [facility] NortheastVkvsimmUMYYCJUKQE1722-72-14 11:06:00 Test Item Value Reference Range Interpretation Comments Segs-Bands # (test code = Segs-Bands #) 4.5 1.5-8.1 [facility] NortheastJxfylfxDRQKYDALHV2195-94-95 11:06:00 Test Item Value Reference Range Interpretation Comments Lymphocytes # (test code = Lymphocytes 3.7 1.0-5.5 #) [facility] NortheastJfoljjpLIYAIKHCTC5512-49-41 11:06:00 Test Item Value Reference Range Interpretation Comments Eosinophils # (test code 0.2 See_Comment [A utomated message] The = Eosinophils #) system whic h generated this result tra nsmitted reference range : <=0.5. The reference r davey was not used to int erpret this result as normal/abnormal . [facility] NortheastWnybvzpSVNFHFLZIC8565-86-92 11:06:00 Test Item Value Reference Range Interpretation Comments Monocytes # (test code 0.5 See_Comment [Aut omated message] The = Monocytes #) system which generated this result tra nsmitted reference range : <=0.8. The reference r davey was not used to int erpret this result as normal/abnormal . [facility] NortheastZshwmaoAVNLZGEFLD3799-68-26 11:06:00 Test Item Value Reference Range Interpretation Comments Segs (test code = Segs) 50.3 45.0-75.0 [facility] UOZSA6636-23-80 11:06:00 Test Item Value Reference Range Interpretation Comments Phosphorus (test code = Phosphorus) 3.3 2.5-4.5 [facility]2016-12-23 11:06:00 Test Item Value Reference Range Interpretation Comments Magnesium Lvl (test code = Magnesium 1.8 1.8-2.4 Lvl) [facility]JyvsaveEMTUNHGNJKBO7519-50-34 11:06:00 Test Item Value Reference Range Interpretation Comments CO2 (test code = CO2) 27 24-32 [facility] HospitalDdxllmoHQWJHDLSRJFF2090-42-88 11:06:00 Test Item Value Reference Range Interpretation Comments Calcium Lvl (test code = Calcium Lvl) 8.7 8.5-10.5 [facility] HospitalRhivxhrRGYMPBIUPPMR6414-44-64 11:06:00 Test Item Value Reference Range Interpretation Comments AGAP (test code = AGAP) 10.8 10.0-20.0 [facility] HospitalRyloyjgISGZZUQHRHWM9222-56-76 11:06:00 Test Item Value Reference Range Interpretation Comments Chloride Lvl (test code = Chloride Lvl) 104 95-109 [facility] HospitalNztwikcIGMETKLDJJIB5226-58-59 11:06:00 Test Item Value Reference Range Interpretation Comments eGFR (test code = eGFR) 56 [facility] HospitalAzdshcsJNPLGKCSMWZU9480-12-39 11:06:00 Test Item Value Reference Range Interpretation Comments Potassium Lvl (test code = Potassium 3.8 3.5-5.1 Lvl) [facility] HospitalEaswredPHJVJONKTIKS0337-63-57 11:06:00 Test Item Value Reference Range Interpretation Comments Sodium Lvl (test code = Sodium Lvl) 138 135-145 [facility] HospitalLnhlapfNNZRKNMYOLFK9357-55-36 11:06:00 Test Item Value Reference Range Interpretation Comments Creatinine Lvl (test code = Creatinine 1.51 0.50-1.40 Lvl) [facility] HospitalGkohconNYTSIQAUREPI8437-77-62 11:06:00 Test Item Value Reference Range Interpretation Comments BUN (test code = BUN) 22 7-22 [facility] HospitalVibqauzNYYHSRTUQTNT2089-82-22 11:06:00 Test Item Value Reference Range Interpretation Comments Glucose Lvl (test code = Glucose Lvl) 130 70-99 [facility]IvbzyncRXBNQQKWXO0219-86-01 11:06:00 Test Item Value Reference Range Interpretation Comments WBC (test code = WBC) 8.9 3.7-10.4 [facility] NortheastXuwqitiYTFONTMDMG4328-80-69 11:06:00 Test Item Value Reference Range Interpretation Comments RBC (test code = RBC) 4.85 4.70-6.10 [facility]ImxnspzUYCYNZCCGQ1791-79-60 11:06:00 Test Item Value Reference Range Interpretation Comments MCV (test code = MCV) 87.1 80.0-94.0 [facility] NortheastJkfplnsVKIRJICDZO6055-16-40 11:06:00 Test Item Value Reference Range Interpretation Comments MCHC (test code = MCHC) 32.7 32.0-36.0 [facility] NortheastGksfeguZXEFNYBYUU6254-34-70 11:06:00 Test Item Value Reference Range Interpretation Comments Platelet (test code = Platelet) 251 133-450 [facility]JyqtovlFUFYTRPIVO0365-02-99 11:06:00 Test Item Value Reference Range Interpretation Comments RDW (test code = RDW) 13.1 11.5-14.5 [facility] NortheastEfmhzoeLRZSKSSZIT9381-67-71 11:06:00 Test Item Value Reference Range Interpretation Comments Hct (test code = Hct) 42.2 42.0-54.0 [facility] NortheastThysjiuFOLCBRIGPX9022-85-43 11:06:00 Test Item Value Reference Range Interpretation Comments Hgb (test code = Hgb) 13.8 14.0-18.0 [facility] NortheastOoqbvnbZRUXAFSJOO0503-05-61 11:06:00 Test Item Value Reference Range Interpretation Comments MPV (test code = MPV) 7.1 7.4-10.4 [facility] NortheastDmlmmuvWWYGYPMFVT5109-94-41 11:06:00 Test Item Value Reference Range Interpretation Comments MCH (test code = MCH) 28.5 pg 27.0-31.0 [facility] NortheastRgocekhHAHYPDVAUC5823-94-79 11:06:00 Test Item Value Reference Range Interpretation Comments Monocytes (test code = Monocytes) 5.9 2.0-12.0 [facility] NortheastHznviagNSEBDZIJII4248-16-94 11:06:00 Test Item Value Reference Range Interpretation Comments Lymphocytes (test code = Lymphocytes) 41.2 20.0-40.0 [facility] NortheastDnhaqctEVXDHYJVQF9398-21-36 11:06:00 Test Item Value Reference Range Interpretation Comments Basophils (test code = 0.5 See_Comment [Aut omated message] The Basophils) system which ge nerated this result tra nsmitted reference range : <=1.0. The reference r davey was not used to int erpret this result as normal/abnormal . [facility] NortheastNbidxffPHJHIJOGFZ7064-16-29 11:06:00 Test Item Value Reference Range Interpretation Comments Eosinophils (test code = 2.1 See_Comment [A utomated message] The Eosinophils) system which ge nerated this result tra nsmitted reference range : <=4.0. The reference r davey was not used to int erpret this result as normal/abnormal . [facility] NortheastVeajflnWEYNPRPWCG5299-77-21 11:06:00 Test Item Value Reference Range Interpretation Comments Segs-Bands # (test code = Segs-Bands #) 4.5 1.5-8.1 [facility] NortheastFdbttsaTHNKMEJMRT7397-15-07 11:06:00 Test Item Value Reference Range Interpretation Comments Lymphocytes # (test code = Lymphocytes 3.7 1.0-5.5 #) [facility]XvmlnlaCJDPNDUCSG6222-09-88 11:06:00 Test Item Value Reference Range Interpretation Comments Eosinophils # (test code 0.2 See_Comment [A utomated message] The = Eosinophils #) system whic h generated this result tra nsmitted reference range : <=0.5. The reference r davey was not used to int erpret this result as normal/abnormal . [facility] NortheastTfigkkuLSLNKYYRZT0687-30-16 11:06:00 Test Item Value Reference Range Interpretation Comments Monocytes # (test code 0.5 See_Comment [Aut omated message] The = Monocytes #) system which generated this result tra nsmitted reference range : <=0.8. The reference r davey was not used to int erpret this result as normal/abnormal . [facility] NortheastJxwbeqzDXLHGVZNPN1189-92-07 11:06:00 Test Item Value Reference Range Interpretation Comments Segs (test code = Segs) 50.3 45.0-75.0 [facility]2016-12-23 11:06:00 Test Item Value Reference Range Interpretation Comments Phosphorus (test code = Phosphorus) 3.3 2.5-4.5 [facility] WBNTZ0537-33-90 11:06:00 Test Item Value Reference Range Interpretation Comments Magnesium Lvl (test code = Magnesium 1.8 1.8-2.4 Lvl) [facility] HospitalEnvdlqqIXGSQEOQNPNT9465-76-04 11:06:00 Test Item Value Reference Range Interpretation Comments CO2 (test code = CO2) 27 24-32 [facility] HospitalAmgjfliZFRZZGNIQILG9697-75-64 11:06:00 Test Item Value Reference Range Interpretation Comments Calcium Lvl (test code = Calcium Lvl) 8.7 8.5-10.5 [facility] HospitalDfnrvszITHFKILGJLEP4202-86-25 11:06:00 Test Item Value Reference Range Interpretation Comments AGAP (test code = AGAP) 10.8 10.0-20.0 [facility] HospitalZmpkvowMYPJUYYBHJFJ9632-46-12 11:06:00 Test Item Value Reference Range Interpretation Comments Chloride Lvl (test code = Chloride Lvl) 104 95-109 [facility] HospitalRijtggyJKUABNFHEQIV3370-49-63 11:06:00 Test Item Value Reference Range Interpretation Comments eGFR (test code = eGFR) 56 [facility] HospitalPqiflzpYYVSRTLXVERA9152-06-14 11:06:00 Test Item Value Reference Range Interpretation Comments Potassium Lvl (test code = Potassium 3.8 3.5-5.1 Lvl) [facility] HospitalTxnmfdbBVRVCNXPSJZW5531-66-15 11:06:00 Test Item Value Reference Range Interpretation Comments Sodium Lvl (test code = Sodium Lvl) 138 135-145 [facility] HospitalWidhonwEIJBGGIWHDQR6277-70-44 11:06:00 Test Item Value Reference Range Interpretation Comments Creatinine Lvl (test code = Creatinine 1.51 0.50-1.40 Lvl) [facility] HospitalNghytarPCLMBWTOMNZQ7292-04-30 11:06:00 Test Item Value Reference Range Interpretation Comments BUN (test code = BUN) 22 7-22 [facility] HospitalEzdtdpmQTIBDSLYNKVK8932-41-91 11:06:00 Test Item Value Reference Range Interpretation Comments Glucose Lvl (test code = Glucose Lvl) 130 70-99 [facility] NortheastGbosqylTPGRYGQREX4837-35-20 11:06:00 Test Item Value Reference Range Interpretation Comments WBC (test code = WBC) 8.9 3.7-10.4 [facility] NortheastOgpzogbOGZIIPXSND4475-44-07 11:06:00 Test Item Value Reference Range Interpretation Comments RBC (test code = RBC) 4.85 4.70-6.10 [facility] NortheastKsesuioOKAUVQEBWQ3211-50-34 11:06:00 Test Item Value Reference Range Interpretation Comments MCV (test code = MCV) 87.1 80.0-94.0 [facility] NortheastIocfikeBMQBNKOYWS1006-50-36 11:06:00 Test Item Value Reference Range Interpretation Comments MCHC (test code = MCHC) 32.7 32.0-36.0 [facility] NortheastGxggwzrHQLLEGUHSM2820-39-20 11:06:00 Test Item Value Reference Range Interpretation Comments Platelet (test code = Platelet) 251 133-450 [facility] NortheastKvfsdlyYPMNNEJLUO0821-81-55 11:06:00 Test Item Value Reference Range Interpretation Comments RDW (test code = RDW) 13.1 11.5-14.5 [facility]EjmlfvfPPQTMSHYXH1729-73-75 11:06:00 Test Item Value Reference Range Interpretation Comments Hct (test code = Hct) 42.2 42.0-54.0 [facility] NortheastVnykolcNGWTRELIYQ2480-70-51 11:06:00 Test Item Value Reference Range Interpretation Comments Hgb (test code = Hgb) 13.8 14.0-18.0 [facility] NortheastXluynkjTJLHVMQKRL8128-15-43 11:06:00 Test Item Value Reference Range Interpretation Comments MPV (test code = MPV) 7.1 7.4-10.4 [facility] NortheastWcurduoPGCCKCOTQW5538-15-49 11:06:00 Test Item Value Reference Range Interpretation Comments MCH (test code = MCH) 28.5 pg 27.0-31.0 [facility] NortheastGtqdqwuTQKMPFAPNL8522-59-45 11:06:00 Test Item Value Reference Range Interpretation Comments Monocytes (test code = Monocytes) 5.9 2.0-12.0 [facility] NortheastNszztygCYKLSEUJBZ1311-44-55 11:06:00 Test Item Value Reference Range Interpretation Comments Lymphocytes (test code = Lymphocytes) 41.2 20.0-40.0 [facility] NortheastUxuzflyJZBSWZUTNR1529-75-12 11:06:00 Test Item Value Reference Range Interpretation Comments Basophils (test code = 0.5 See_Comment [Aut omated message] The Basophils) system which ge nerated this result tra nsmitted reference range : <=1.0. The reference r davey was not used to int erpret this result as normal/abnormal . [facility] NortheastUzecrsoBVULFMDTMV2164-28-52 11:06:00 Test Item Value Reference Range Interpretation Comments Eosinophils (test code = 2.1 See_Comment [A utomated message] The Eosinophils) system which ge nerated this result tra nsmitted reference range : <=4.0. The reference r davey was not used to int erpret this result as normal/abnormal . [facility] NortheastVmvonuuBDSQLDXLMK3110-00-02 11:06:00 Test Item Value Reference Range Interpretation Comments Segs-Bands # (test code = Segs-Bands #) 4.5 1.5-8.1 [facility] NortheastUdilsiiYIIKRXTBUQ6966-18-48 11:06:00 Test Item Value Reference Range Interpretation Comments Lymphocytes # (test code = Lymphocytes 3.7 1.0-5.5 #) [facility] NortheastCyroudaNORVDNGKUZ2338-20-77 11:06:00 Test Item Value Reference Range Interpretation Comments Eosinophils # (test code 0.2 See_Comment [A utomated message] The = Eosinophils #) system whic h generated this result tra nsmitted reference range : <=0.5. The reference r davey was not used to int erpret this result as normal/abnormal . [facility] NortheastZwpkfeqXNQAGDMWZE7908-75-89 11:06:00 Test Item Value Reference Range Interpretation Comments Monocytes # (test code 0.5 See_Comment [Aut omated message] The = Monocytes #) system which generated this result tra nsmitted reference range : <=0.8. The reference r davey was not used to int erpret this result as normal/abnormal . [facility] NortheastVbjbbfkRIKQQWZPMJ6347-97-90 11:06:00 Test Item Value Reference Range Interpretation Comments Segs (test code = Segs) 50.3 45.0-75.0 [facility]2016-12-22 16:49:00 Test Item Value Reference Range Interpretation Comments Lactic Acid Lvl (test code = Lactic 1.4 0.5-2.2 Acid Lvl) [facility] HospitalBwpomklARMQOMPYBWER1156-87-65 16:49:00 Test Item Value Reference Range Interpretation Comments AGAP (test code = AGAP) 11.0 10.0-20.0 [facility] HospitalFmwvovcKYAZCZZMLGLV2935-10-67 16:49:00 Test Item Value Reference Range Interpretation Comments eGFR (test code = eGFR) 54 [facility] HospitalDzgnifrDXWGJBCGTWMN2092-08-87 16:49:00 Test Item Value Reference Range Interpretation Comments Sodium Lvl (test code = Sodium Lvl) 139 135-145 [facility] HospitalCkmcrscANGJPGPBTGYU8957-36-46 16:49:00 Test Item Value Reference Range Interpretation Comments Potassium Lvl (test code = Potassium 4.0 3.5-5.1 Lvl) [facility] HospitalZkdmzwbVFXLWDFOBKPV8038-44-98 16:49:00 Test Item Value Reference Range Interpretation Comments CO2 (test code = CO2) 29 24-32 [facility] HospitalRmlgrnoVZDQQFCEZFUX7320-39-44 16:49:00 Test Item Value Reference Range Interpretation Comments Chloride Lvl (test code = Chloride Lvl) 103 95-109 [facility] HospitalGblilzbIIBRLTMGJKCN2856-88-28 16:49:00 Test Item Value Reference Range Interpretation Comments Calcium Lvl (test code = Calcium Lvl) 8.9 8.5-10.5 [facility] HospitalKrkoujdDGWYUCQFMBUE1408-15-60 16:49:00 Test Item Value Reference Range Interpretation Comments Creatinine Lvl (test code = Creatinine 1.54 0.50-1.40 Lvl) [facility] HospitalZyhfrmnVNMGLRNBVANY2060-22-45 16:49:00 Test Item Value Reference Range Interpretation Comments BUN (test code = BUN) 24 7-22 [facility] HospitalRwwrvyvUJWNFQVMSTIX9378-21-36 16:49:00 Test Item Value Reference Range Interpretation Comments Glucose Lvl (test code = Glucose Lvl) 229 70-99 [facility]NshxtgoWXVXRLXEZN3895-69-84 16:49:00 Test Item Value Reference Range Interpretation Comments MCV (test code = MCV) 85.8 80.0-94.0 [facility] NortheastDwmitsbEMZOHJFJQQ7955-96-53 16:49:00 Test Item Value Reference Range Interpretation Comments Hgb (test code = Hgb) 12.8 14.0-18.0 [facility] NortheastJzafverQXHHXFKDHB6988-91-27 16:49:00 Test Item Value Reference Range Interpretation Comments Hct (test code = Hct) 38.8 42.0-54.0 [facility] NortheastPsbcwtqJEIFUFTBMQ8832-49-86 16:49:00 Test Item Value Reference Range Interpretation Comments RBC (test code = RBC) 4.52 4.70-6.10 [facility] NortheastDrcwmupMVCFYEXEQZ6847-89-16 16:49:00 Test Item Value Reference Range Interpretation Comments WBC (test code = WBC) 10.8 3.7-10.4 [facility] NortheastZffcyapLNSTGUZKPF1671-00-03 16:49:00 Test Item Value Reference Range Interpretation Comments Platelet (test code = Platelet) 350 133-450 [facility] NortheastZfxmttsKTCEPKXRIR3521-17-18 16:49:00 Test Item Value Reference Range Interpretation Comments MPV (test code = MPV) 6.5 7.4-10.4 [facility] NortheastLtovlbdRICPSRSHHU0352-25-95 16:49:00 Test Item Value Reference Range Interpretation Comments RDW (test code = RDW) 13.3 11.5-14.5 [facility] NortheastBhkhjzoESQDSXIYPJ3902-43-29 16:49:00 Test Item Value Reference Range Interpretation Comments MCH (test code = MCH) 28.2 pg 27.0-31.0 [facility] NortheastVyazidwVROTBXBZXF7524-78-99 16:49:00 Test Item Value Reference Range Interpretation Comments MCHC (test code = MCHC) 32.9 32.0-36.0 [facility] NortheastZkauhnpEDGWDQTEAD9291-11-18 16:49:00 Test Item Value Reference Range Interpretation Comments Basophils # (test code 0.1 See_Comment [Aut omated message] The = Basophils #) system which generated this result tra nsmitted reference range : <=0.2. The reference r davey was not used to int erpret this result as normal/abnormal . [facility] NortheastCjirmieCGYKWLMADQ3687-28-61 16:49:00 Test Item Value Reference Range Interpretation Comments Eosinophils # (test code 0.1 See_Comment [A utomated message] The = Eosinophils #) system whic h generated this result tra nsmitted reference range : <=0.5. The reference r davey was not used to int erpret this result as normal/abnormal . [facility]KktjeviRNSISJSIYC9489-11-03 16:49:00 Test Item Value Reference Range Interpretation Comments Monocytes # (test code 0.8 See_Comment [Aut omated message] The = Monocytes #) system which generated this result tra nsmitted reference range : <=0.8. The reference r davey was not used to int erpret this result as normal/abnormal . [facility]QxtdfnjDLGRYABZCL0131-64-18 16:49:00 Test Item Value Reference Range Interpretation Comments Lymphocytes # (test code = Lymphocytes 3.1 1.0-5.5 #) [facility]IiqdbcmURJXHANNRI0346-24-59 16:49:00 Test Item Value Reference Range Interpretation Comments Segs-Bands # (test code = Segs-Bands #) 6.8 1.5-8.1 [facility]YqcboogIDUFZBZNUM6858-27-46 16:49:00 Test Item Value Reference Range Interpretation Comments Basophils (test code = 0.6 See_Comment [Aut omated message] The Basophils) system which ge nerated this result tra nsmitted reference range : <=1.0. The reference r davey was not used to int erpret this result as normal/abnormal . [facility] NortheastHfpwbsaXKRREOISOB1649-00-73 16:49:00 Test Item Value Reference Range Interpretation Comments Eosinophils (test code = 0.6 See_Comment [A utomated message] The Eosinophils) system which ge nerated this result tra nsmitted reference range : <=4.0. The reference r davey was not used to int erpret this result as normal/abnormal . [facility] NortheastDlgfuibTBTLXVRGFP7135-01-43 16:49:00 Test Item Value Reference Range Interpretation Comments Monocytes (test code = Monocytes) 7.7 2.0-12.0 [facility]XehldekBSOBRNDARP4511-08-63 16:49:00 Test Item Value Reference Range Interpretation Comments Lymphocytes (test code = Lymphocytes) 28.6 20.0-40.0 [facility] NortheastTkkhrliFYQNQYZGJE8632-12-41 16:49:00 Test Item Value Reference Range Interpretation Comments Segs (test code = Segs) 62.5 45.0-75.0 [facility]2016-12-22 16:49:00 Test Item Value Reference Range Interpretation Comments Lactic Acid Lvl (test code = Lactic 1.4 0.5-2.2 Acid Lvl) [facility]UbhqsyzXZGFUQVDGUKP2626-82-03 16:49:00 Test Item Value Reference Range Interpretation Comments AGAP (test code = AGAP) 11.0 10.0-20.0 [facility] HospitalFobnywiQHCKFEYOTMMA2511-72-61 16:49:00 Test Item Value Reference Range Interpretation Comments eGFR (test code = eGFR) 54 [facility] HospitalBthykmkKPZZGHRXQBAH5405-47-79 16:49:00 Test Item Value Reference Range Interpretation Comments Sodium Lvl (test code = Sodium Lvl) 139 135-145 [facility] HospitalEtkczpbFLADEJALWJLL0404-65-97 16:49:00 Test Item Value Reference Range Interpretation Comments Potassium Lvl (test code = Potassium 4.0 3.5-5.1 Lvl) [facility] HospitalCcejlnoXXLSEYIQDJIJ4983-96-70 16:49:00 Test Item Value Reference Range Interpretation Comments CO2 (test code = CO2) 29 24-32 [facility] HospitalBbcidwjRYRATTFYBYNT4743-43-07 16:49:00 Test Item Value Reference Range Interpretation Comments Chloride Lvl (test code = Chloride Lvl) 103 95-109 [facility] HospitalNstzwxkDYWTMPCEBWRT2598-21-14 16:49:00 Test Item Value Reference Range Interpretation Comments Calcium Lvl (test code = Calcium Lvl) 8.9 8.5-10.5 [facility] HospitalNbfmubsJDZRHTYQLOXZ0566-79-09 16:49:00 Test Item Value Reference Range Interpretation Comments Creatinine Lvl (test code = Creatinine 1.54 0.50-1.40 Lvl) [facility] HospitalWytiyulHMNFXZISPRLH0224-65-00 16:49:00 Test Item Value Reference Range Interpretation Comments BUN (test code = BUN) 24 7-22 [facility] HospitalXrhqqnyUQTTGZYTCCNW1870-00-09 16:49:00 Test Item Value Reference Range Interpretation Comments Glucose Lvl (test code = Glucose Lvl) 229 70-99 [facility]SkvmtnaDFEWDVMRBA4831-16-71 16:49:00 Test Item Value Reference Range Interpretation Comments MCV (test code = MCV) 85.8 80.0-94.0 [facility]NhnqrziGLZQRNVKBF6823-43-90 16:49:00 Test Item Value Reference Range Interpretation Comments Hgb (test code = Hgb) 12.8 14.0-18.0 [facility]AflqgaaCGFCHJHHTY7838-13-53 16:49:00 Test Item Value Reference Range Interpretation Comments Hct (test code = Hct) 38.8 42.0-54.0 [facility] NortheastZlvltvoUQNDXFKIML7492-51-34 16:49:00 Test Item Value Reference Range Interpretation Comments RBC (test code = RBC) 4.52 4.70-6.10 [facility] NortheastCsdtgieHTPMXHVJXN2894-12-50 16:49:00 Test Item Value Reference Range Interpretation Comments WBC (test code = WBC) 10.8 3.7-10.4 [facility] NortheastImonqygJXGWOQXDUH6882-83-21 16:49:00 Test Item Value Reference Range Interpretation Comments Platelet (test code = Platelet) 350 133-450 [facility] NortheastOjbuaptTEOGBLZFUT4887-80-66 16:49:00 Test Item Value Reference Range Interpretation Comments MPV (test code = MPV) 6.5 7.4-10.4 [facility] NortheastPxojireXSJHLTCKKH2714-71-67 16:49:00 Test Item Value Reference Range Interpretation Comments RDW (test code = RDW) 13.3 11.5-14.5 [facility] NortheastOznyarvJTVARQTLFO0433-32-02 16:49:00 Test Item Value Reference Range Interpretation Comments MCH (test code = MCH) 28.2 pg 27.0-31.0 [facility]XjsrgogJJJTNWLZMZ0959-23-81 16:49:00 Test Item Value Reference Range Interpretation Comments MCHC (test code = MCHC) 32.9 32.0-36.0 [facility] NortheastMmjcrmtXARCOMDUUO8319-71-75 16:49:00 Test Item Value Reference Range Interpretation Comments Basophils # (test code 0.1 See_Comment [Aut omated message] The = Basophils #) system which generated this result tra nsmitted reference range : <=0.2. The reference r davey was not used to int erpret this result as normal/abnormal . [facility] NortheastNbavinxIBYOMTPTXH9790-18-11 16:49:00 Test Item Value Reference Range Interpretation Comments Eosinophils # (test code 0.1 See_Comment [A utomated message] The = Eosinophils #) system whic h generated this result tra nsmitted reference range : <=0.5. The reference r davey was not used to int erpret this result as normal/abnormal . [facility] NortheastNrrscecTKOESIYECB1285-33-16 16:49:00 Test Item Value Reference Range Interpretation Comments Monocytes # (test code 0.8 See_Comment [Aut omated message] The = Monocytes #) system which generated this result tra nsmitted reference range : <=0.8. The reference r davey was not used to int erpret this result as normal/abnormal . [facility] NortheastOxhokibMUTYGSUQZR8150-88-28 16:49:00 Test Item Value Reference Range Interpretation Comments Lymphocytes # (test code = Lymphocytes 3.1 1.0-5.5 #) [facility] NortheastRdyxxxtYHBMRASEZV5423-49-86 16:49:00 Test Item Value Reference Range Interpretation Comments Segs-Bands # (test code = Segs-Bands #) 6.8 1.5-8.1 [facility] NortheastYepqlydDBKVZTSJFG7936-24-75 16:49:00 Test Item Value Reference Range Interpretation Comments Basophils (test code = 0.6 See_Comment [Aut omated message] The Basophils) system which ge nerated this result tra nsmitted reference range : <=1.0. The reference r davey was not used to int erpret this result as normal/abnormal . [facility] NortheastHetlacoZCBSJNYEKX0118-77-40 16:49:00 Test Item Value Reference Range Interpretation Comments Eosinophils (test code = 0.6 See_Comment [A utomated message] The Eosinophils) system which ge nerated this result tra nsmitted reference range : <=4.0. The reference r davey was not used to int erpret this result as normal/abnormal . [facility] NortheastAtchisuRLRMKNBXXZ7823-32-50 16:49:00 Test Item Value Reference Range Interpretation Comments Monocytes (test code = Monocytes) 7.7 2.0-12.0 [facility] NortheastXehgphiHKXIIORRZQ9622-67-18 16:49:00 Test Item Value Reference Range Interpretation Comments Lymphocytes (test code = Lymphocytes) 28.6 20.0-40.0 [facility] NortheastJrbjdjgFGGQRCQFBU2317-90-85 16:49:00 Test Item Value Reference Range Interpretation Comments Segs (test code = Segs) 62.5 45.0-75.0 [facility]2016-12-22 16:49:00 Test Item Value Reference Range Interpretation Comments Lactic Acid Lvl (test code = Lactic 1.4 0.5-2.2 Acid Lvl) [facility] HospitalVhogaimUWXRRJECRWXF1056-38-91 16:49:00 Test Item Value Reference Range Interpretation Comments AGAP (test code = AGAP) 11.0 10.0-20.0 [facility] HospitalCqrluwyFXHWECPEIMKK7277-88-00 16:49:00 Test Item Value Reference Range Interpretation Comments eGFR (test code = eGFR) 54 [facility] HospitalLudbzdmPJLLBCNWFGCM1798-86-37 16:49:00 Test Item Value Reference Range Interpretation Comments Sodium Lvl (test code = Sodium Lvl) 139 135-145 [facility] HospitalUrfkbjzGYBPMDTOBWOL3000-04-14 16:49:00 Test Item Value Reference Range Interpretation Comments Potassium Lvl (test code = Potassium 4.0 3.5-5.1 Lvl) [facility] HospitalOlldfrcMEPNGLPQZLHV6175-43-64 16:49:00 Test Item Value Reference Range Interpretation Comments CO2 (test code = CO2) 29 24-32 [facility] HospitalHzkgaqcFIQJSOQAWZTL0499-37-75 16:49:00 Test Item Value Reference Range Interpretation Comments Chloride Lvl (test code = Chloride Lvl) 103 95-109 [facility] HospitalWjqtvajBDUTWKRWIEPJ2489-69-05 16:49:00 Test Item Value Reference Range Interpretation Comments Calcium Lvl (test code = Calcium Lvl) 8.9 8.5-10.5 [facility] HospitalZshvvrdSFAISUKIXDPA0499-30-77 16:49:00 Test Item Value Reference Range Interpretation Comments Creatinine Lvl (test code = Creatinine 1.54 0.50-1.40 Lvl) [facility] HospitalQnzpaixQJVRYAQGUQDK7026-27-46 16:49:00 Test Item Value Reference Range Interpretation Comments BUN (test code = BUN) 24 7-22 [facility] HospitalDmhoiebHKCFEZYDWPYE7886-88-15 16:49:00 Test Item Value Reference Range Interpretation Comments Glucose Lvl (test code = Glucose Lvl) 229 70-99 [facility] NortheastLfurfkeBZTCPBHKPF2713-39-67 16:49:00 Test Item Value Reference Range Interpretation Comments MCV (test code = MCV) 85.8 80.0-94.0 [facility] NortheastFakqgmrOOTOSHILIV5702-06-15 16:49:00 Test Item Value Reference Range Interpretation Comments Hgb (test code = Hgb) 12.8 14.0-18.0 [facility] NortheastUytmuscWYYUFTQIWY1652-30-90 16:49:00 Test Item Value Reference Range Interpretation Comments Hct (test code = Hct) 38.8 42.0-54.0 [facility] NortheastTapfdrtLNYNTSXNIC1750-63-65 16:49:00 Test Item Value Reference Range Interpretation Comments RBC (test code = RBC) 4.52 4.70-6.10 [facility] NortheastXsmbsanWOFRLOFDXQ6053-58-88 16:49:00 Test Item Value Reference Range Interpretation Comments WBC (test code = WBC) 10.8 3.7-10.4 [facility] NortheastVxkizmyPBNGYIQOEL0792-74-21 16:49:00 Test Item Value Reference Range Interpretation Comments Platelet (test code = Platelet) 350 133-450 [facility] NortheastNrpqsohJCMYYAHZCL5001-55-80 16:49:00 Test Item Value Reference Range Interpretation Comments MPV (test code = MPV) 6.5 7.4-10.4 [facility] NortheastUnsxvnqPZZSOPXWUV4701-70-44 16:49:00 Test Item Value Reference Range Interpretation Comments RDW (test code = RDW) 13.3 11.5-14.5 [facility] NortheastBpvuofyINSUDFGERA2069-78-17 16:49:00 Test Item Value Reference Range Interpretation Comments MCH (test code = MCH) 28.2 pg 27.0-31.0 [facility] NortheastImdifddCXPEWEFZHB5363-66-96 16:49:00 Test Item Value Reference Range Interpretation Comments MCHC (test code = MCHC) 32.9 32.0-36.0 [facility] NortheastYsusvdwSQSCEAIWSO7118-27-70 16:49:00 Test Item Value Reference Range Interpretation Comments Basophils # (test code 0.1 See_Comment [Aut omated message] The = Basophils #) system which generated this result tra nsmitted reference range : <=0.2. The reference r davey was not used to int erpret this result as normal/abnormal . [facility] NortheastRtwwmlwYIUYFAGGPV4797-41-86 16:49:00 Test Item Value Reference Range Interpretation Comments Eosinophils # (test code 0.1 See_Comment [A utomated message] The = Eosinophils #) system whic h generated this result tra nsmitted reference range : <=0.5. The reference r davey was not used to int erpret this result as normal/abnormal . [facility] NortheastOylszesZLTUQPJESU4842-96-99 16:49:00 Test Item Value Reference Range Interpretation Comments Monocytes # (test code 0.8 See_Comment [Aut omated message] The = Monocytes #) system which generated this result tra nsmitted reference range : <=0.8. The reference r davey was not used to int erpret this result as normal/abnormal . [facility] NortheastTmpfkddIUNFSQUOQM6009-47-71 16:49:00 Test Item Value Reference Range Interpretation Comments Lymphocytes # (test code = Lymphocytes 3.1 1.0-5.5 #) [facility] NortheastVndkssxATKYNJKFAW6094-00-17 16:49:00 Test Item Value Reference Range Interpretation Comments Segs-Bands # (test code = Segs-Bands #) 6.8 1.5-8.1 [facility] NortheastHskqtzhJKBJEKYXBG1704-96-45 16:49:00 Test Item Value Reference Range Interpretation Comments Basophils (test code = 0.6 See_Comment [Aut omated message] The Basophils) system which ge nerated this result tra nsmitted reference range : <=1.0. The reference r davey was not used to int erpret this result as normal/abnormal . [facility] NortheastWjkiwjgCMLOSGZDAI4460-66-29 16:49:00 Test Item Value Reference Range Interpretation Comments Eosinophils (test code = 0.6 See_Comment [A utomated message] The Eosinophils) system which ge nerated this result tra nsmitted reference range : <=4.0. The reference r davey was not used to int erpret this result as normal/abnormal . [facility] NortheastHcfcjlxPDWVDMQGFS5869-46-86 16:49:00 Test Item Value Reference Range Interpretation Comments Monocytes (test code = Monocytes) 7.7 2.0-12.0 [facility] NortheastDtrfjeaKXSJUAZARO2322-74-55 16:49:00 Test Item Value Reference Range Interpretation Comments Lymphocytes (test code = Lymphocytes) 28.6 20.0-40.0 [facility] NortheastTxnovxkAIAEEQCRYU6330-39-43 16:49:00 Test Item Value Reference Range Interpretation Comments Segs (test code = Segs) 62.5 45.0-75.0 [facility]CHE[facility] KQIDR2776-05-27 16:49:00 Test Item Value Reference Range Interpretation Comments Lactic Acid Lvl (test code = Lactic 1.4 0.5-2.2 Acid Lvl) [facility] HospitalNgtywuhAKBJTNRSGMEO8745-06-89 16:49:00 Test Item Value Reference Range Interpretation Comments AGAP (test code = AGAP) 11.0 10.0-20.0 [facility] HospitalRunmdsaVDRNMWASPEGI6181-84-60 16:49:00 Test Item Value Reference Range Interpretation Comments eGFR (test code = eGFR) 54 [facility] HospitalCnyekljRJECRSWZIYQE5704-39-94 16:49:00 Test Item Value Reference Range Interpretation Comments Sodium Lvl (test code = Sodium Lvl) 139 135-145 [facility] HospitalBvjkmaiEUJTEXKVBHPD6972-92-57 16:49:00 Test Item Value Reference Range Interpretation Comments Potassium Lvl (test code = Potassium 4.0 3.5-5.1 Lvl) [facility] HospitalVwucgfnHQXRBWDISMVL3054-43-47 16:49:00 Test Item Value Reference Range Interpretation Comments CO2 (test code = CO2) 29 24-32 [facility] HospitalFcwcdzbXSJTWGUFXEPJ9483-95-64 16:49:00 Test Item Value Reference Range Interpretation Comments Chloride Lvl (test code = Chloride Lvl) 103 95-109 [facility] HospitalWzuwvayBKNNYSHWPAWF7595-86-65 16:49:00 Test Item Value Reference Range Interpretation Comments Calcium Lvl (test code = Calcium Lvl) 8.9 8.5-10.5 [facility] HospitalIbvdximRHBJALLAOKDL5611-35-40 16:49:00 Test Item Value Reference Range Interpretation Comments Creatinine Lvl (test code = Creatinine 1.54 0.50-1.40 Lvl) [facility] HospitalKfvldgiZMQSQNQFZBAY1943-58-48 16:49:00 Test Item Value Reference Range Interpretation Comments BUN (test code = BUN) 24 7-22 [facility] HospitalAgecipgLNHIBDWSUDOQ3644-10-87 16:49:00 Test Item Value Reference Range Interpretation Comments Glucose Lvl (test code = Glucose Lvl) 229 70-99 [facility] NortheastNuvnagkOIAMZLMKMY8178-61-16 16:49:00 Test Item Value Reference Range Interpretation Comments MCV (test code = MCV) 85.8 80.0-94.0 [facility] NortheastGzlkupuEAOYHPYCQM7509-25-58 16:49:00 Test Item Value Reference Range Interpretation Comments Hgb (test code = Hgb) 12.8 14.0-18.0 [facility] NortheastUvuhccrXUEBYZWDFK6716-24-30 16:49:00 Test Item Value Reference Range Interpretation Comments Hct (test code = Hct) 38.8 42.0-54.0 [facility] NortheastMmqnlmmLSLVZJGTWW6893-22-81 16:49:00 Test Item Value Reference Range Interpretation Comments RBC (test code = RBC) 4.52 4.70-6.10 [facility] NortheastPdtwpfzLAVGSWRTAH8211-14-58 16:49:00 Test Item Value Reference Range Interpretation Comments WBC (test code = WBC) 10.8 3.7-10.4 [facility]2016-12-22 16:49:00 Test Item Value Reference Range Interpretation Comments Lactic Acid Lvl (test code = Lactic 1.4 0.5-2.2 Acid Lvl) [facility] HospitalCljckplYKJZXMGTOSCO7878-67-10 16:49:00 Test Item Value Reference Range Interpretation Comments AGAP (test code = AGAP) 11.0 10.0-20.0 [facility] HospitalAenyvqgTJPANRUWRWID4666-29-54 16:49:00 Test Item Value Reference Range Interpretation Comments eGFR (test code = eGFR) 54 [facility] HospitalYnbjcghTCUBYBWOMZGR2216-35-52 16:49:00 Test Item Value Reference Range Interpretation Comments Sodium Lvl (test code = Sodium Lvl) 139 135-145 [facility] HospitalBstutggFIQQTAJQRMCL8102-26-33 16:49:00 Test Item Value Reference Range Interpretation Comments Potassium Lvl (test code = Potassium 4.0 3.5-5.1 Lvl) [facility] HospitalYymwplvPGBIZHSJEBSF4525-72-34 16:49:00 Test Item Value Reference Range Interpretation Comments CO2 (test code = CO2) 29 24-32 [facility] NortheastYlkfsfwVXEVJWCGNF8181-78-64 16:49:00 Test Item Value Reference Range Interpretation Comments Platelet (test code = Platelet) 350 133-450 [facility] HospitalSjplzafBALPSDGQEWLC2252-88-05 16:49:00 Test Item Value Reference Range Interpretation Comments Chloride Lvl (test code = Chloride Lvl) 103 95-109 [facility] HospitalPtsgywgLODKHHFXZGSA7578-49-28 16:49:00 Test Item Value Reference Range Interpretation Comments Calcium Lvl (test code = Calcium Lvl) 8.9 8.5-10.5 [facility] HospitalExgodcoCJNKOOJFPBSI7706-88-41 16:49:00 Test Item Value Reference Range Interpretation Comments Creatinine Lvl (test code = Creatinine 1.54 0.50-1.40 Lvl) [facility] HospitalUmhkdodKYJLZSKUVASR6348-03-80 16:49:00 Test Item Value Reference Range Interpretation Comments BUN (test code = BUN) 24 7-22 [facility] HospitalTjtviigYPGSYRKZJSRK2565-11-76 16:49:00 Test Item Value Reference Range Interpretation Comments Glucose Lvl (test code = Glucose Lvl) 229 70-99 [facility] NortheastJnteyatOUBVDOVBWH9398-14-46 16:49:00 Test Item Value Reference Range Interpretation Comments MCV (test code = MCV) 85.8 80.0-94.0 [facility] NortheastCmkuvwoGHNJNKKTAT0069-66-37 16:49:00 Test Item Value Reference Range Interpretation Comments Hgb (test code = Hgb) 12.8 14.0-18.0 [facility] NortheastRsdpminTFTCZGEPMT6144-02-40 16:49:00 Test Item Value Reference Range Interpretation Comments Hct (test code = Hct) 38.8 42.0-54.0 [facility] NortheastZragnsbDZQYDPYVDH2914-68-13 16:49:00 Test Item Value Reference Range Interpretation Comments RBC (test code = RBC) 4.52 4.70-6.10 [facility] NortheastYwymsfvZOCKTGBJYK4364-16-37 16:49:00 Test Item Value Reference Range Interpretation Comments WBC (test code = WBC) 10.8 3.7-10.4 [facility] NortheastDbuoqgnJZZAIOXEEJ5688-89-60 16:49:00 Test Item Value Reference Range Interpretation Comments MPV (test code = MPV) 6.5 7.4-10.4 [facility] NortheastSecinojWHVNREAQTH2080-77-96 16:49:00 Test Item Value Reference Range Interpretation Comments Platelet (test code = Platelet) 350 133-450 [facility] NortheastGstboajPTAJADDEQO7302-25-53 16:49:00 Test Item Value Reference Range Interpretation Comments MPV (test code = MPV) 6.5 7.4-10.4 [facility] NortheastAwbjxnrGBWCFCVBBQ7795-96-93 16:49:00 Test Item Value Reference Range Interpretation Comments RDW (test code = RDW) 13.3 11.5-14.5 [facility] NortheastZxymzfgAOQVISADYX0223-56-37 16:49:00 Test Item Value Reference Range Interpretation Comments MCH (test code = MCH) 28.2 pg 27.0-31.0 [facility] NortheastYylicnoHYUZCFZVTR5983-94-22 16:49:00 Test Item Value Reference Range Interpretation Comments MCHC (test code = MCHC) 32.9 32.0-36.0 [facility] NortheastAbazcdfFKEFQNTOVZ8447-55-65 16:49:00 Test Item Value Reference Range Interpretation Comments Basophils # (test code 0.1 See_Comment [Aut omated message] The = Basophils #) system which generated this result tra nsmitted reference range : <=0.2. The reference r davey was not used to int erpret this result as normal/abnormal . [facility] NortheastIdwaxwiTENWFLRLZB1729-66-47 16:49:00 Test Item Value Reference Range Interpretation Comments Eosinophils # (test code 0.1 See_Comment [A utomated message] The = Eosinophils #) system whic h generated this result tra nsmitted reference range : <=0.5. The reference r davey was not used to int erpret this result as normal/abnormal . [facility] NortheastCzqtczcCXSYDOYJAZ9843-83-13 16:49:00 Test Item Value Reference Range Interpretation Comments Monocytes # (test code 0.8 See_Comment [Aut omated message] The = Monocytes #) system which generated this result tra nsmitted reference range : <=0.8. The reference r davey was not used to int erpret this result as normal/abnormal . [facility] NortheastQeieakcOVSZFSMIHJ3327-61-59 16:49:00 Test Item Value Reference Range Interpretation Comments Lymphocytes # (test code = Lymphocytes 3.1 1.0-5.5 #) [facility] NortheastPxuwebkZKMTCKSVXH8525-41-81 16:49:00 Test Item Value Reference Range Interpretation Comments Segs-Bands # (test code = Segs-Bands #) 6.8 1.5-8.1 [facility] NortheastYcfedidETJCTPDLTF2615-98-09 16:49:00 Test Item Value Reference Range Interpretation Comments RDW (test code = RDW) 13.3 11.5-14.5 [facility] NortheastRwpvqrkOLIOAHNZVS2964-25-78 16:49:00 Test Item Value Reference Range Interpretation Comments Basophils (test code = 0.6 See_Comment [Aut omated message] The Basophils) system which ge nerated this result tra nsmitted reference range : <=1.0. The reference r davey was not used to int erpret this result as normal/abnormal . [facility] NortheastFnonidqXSCXYPQSZM3012-54-13 16:49:00 Test Item Value Reference Range Interpretation Comments Eosinophils (test code = 0.6 See_Comment [A utomated message] The Eosinophils) system which ge nerated this result tra nsmitted reference range : <=4.0. The reference r davey was not used to int erpret this result as normal/abnormal . [facility] NortheastNzyyrrkQMPQAZPQKO9873-32-96 16:49:00 Test Item Value Reference Range Interpretation Comments Monocytes (test code = Monocytes) 7.7 2.0-12.0 [facility] NortheastXqmnuyoEDWDHTXSFH3350-63-52 16:49:00 Test Item Value Reference Range Interpretation Comments Lymphocytes (test code = Lymphocytes) 28.6 20.0-40.0 [facility] NortheastOlfyrzeOOPTDARBXQ6746-94-84 16:49:00 Test Item Value Reference Range Interpretation Comments Segs (test code = Segs) 62.5 45.0-75.0 [facility] NortheastOmqoaceLYXJWWOSKJ2006-43-41 16:49:00 Test Item Value Reference Range Interpretation Comments MCH (test code = MCH) 28.2 pg 27.0-31.0 [facility] NortheastXtgbmqzKBYNVCRIHX8061-61-72 16:49:00 Test Item Value Reference Range Interpretation Comments MCHC (test code = MCHC) 32.9 32.0-36.0 [facility] [facility]ucmzbaEKUUNOBLNZ8801[facility]17-93 16:49:00 Test Item Value Reference Range Interpretation Comments Basophils # (test code 0.1 See_Comment [Aut omated message] The = Basophils #) system which generated this result tra nsmitted reference range : <=0.2. The reference r davey was not used to int erpret this result as normal/abnormal . [facility] NortheastFzahrgrPOBVKGFATE8663-82-71 16:49:00 Test Item Value Reference Range Interpretation Comments Eosinophils # (test code 0.1 See_Comment [A utomated message] The = Eosinophils #) system wh h generated this result tra nsmitted reference range : <=0.5. The reference r davey was not used to int erpret this result as normal/abnormal . [facility] NortheastLkojqykPAGZNIUHYB2577-88-51 16:49:00 Test Item Value Reference Range Interpretation Comments Monocytes # (test code 0.8 See_Comment [Aut omated message] The = Monocytes #) system which generated this result tra nsmitted reference range : <=0.8. The reference r davey was not used to int erpret this result as normal/abnormal . [facility] NortheastUqgdazcJIADBCRQGD4451-83-78 16:49:00 Test Item Value Reference Range Interpretation Comments Lymphocytes # (test code = Lymphocytes 3.1 1.0-5.5 #) [facility] NortheastQxoewxeMACYPDCHME8663-65-87 16:49:00 Test Item Value Reference Range Interpretation Comments Segs-Bands # (test code = Segs-Bands #) 6.8 1.5-8.1 [facility] NortheastCpfmqqzRLIQPBFNRZ4433-04-46 16:49:00 Test Item Value Reference Range Interpretation Comments Basophils (test code = 0.6 See_Comment [Aut omated message] The Basophils) system which ge nerated this result tra nsmitted reference range : <=1.0. The reference r davey was not used to int erpret this result as normal/abnormal . [facility] NortheastSfnwgfkIHEUTQMZHI7635-00-37 16:49:00 Test Item Value Reference Range Interpretation Comments Eosinophils (test code = 0.6 See_Comment [A utomated message] The Eosinophils) system which ge nerated this result tra nsmitted reference range : <=4.0. The reference r davey was not used to int erpret this result as normal/abnormal . [facility] NortheastHudbtevVKSCPKCOTF1744-46-20 16:49:00 Test Item Value Reference Range Interpretation Comments Monocytes (test code = Monocytes) 7.7 2.0-12.0 [facility] NortheastTqgoxqvFHHCJJREYW6291-54-45 16:49:00 Test Item Value Reference Range Interpretation Comments Lymphocytes (test code = Lymphocytes) 28.6 20.0-40.0 [facility]NhovoygXPMAIPCNBZ6437-80-19 16:49:00 Test Item Value Reference Range Interpretation Comments Segs (test code = Segs) 62.5 45.0-75.0 [facility]ennialCHEM WOQZB6977-60-34 16:49:00 Test Item Value Reference Range Interpretation Comments Lactic Acid Lvl (test code = Lactic 1.4 0.5-2.2 Acid Lvl) [facility]XblksldFCXHUNSADXQU6583-85-63 16:49:00 Test Item Value Reference Range Interpretation Comments AGAP (test code = AGAP) 11.0 10.0-20.0 [facility] HospitalQqfkmifPFIUSACNDDTV4005-72-89 16:49:00 Test Item Value Reference Range Interpretation Comments eGFR (test code = eGFR) 54 [facility] HospitalIbozmhmWESDNKNLROQB3805-00-23 16:49:00 Test Item Value Reference Range Interpretation Comments Sodium Lvl (test code = Sodium Lvl) 139 135-145 [facility] HospitalDxrdsugWJTFTEPIZRCQ1745-74-76 16:49:00 Test Item Value Reference Range Interpretation Comments Potassium Lvl (test code = Potassium 4.0 3.5-5.1 Lvl) [facility] HospitalVmftgrgOFUXIDTSLMJL9112-49-21 16:49:00 Test Item Value Reference Range Interpretation Comments CO2 (test code = CO2) 29 24-32 [facility] HospitalVpufwsjELECSMYKRXHN9256-14-28 16:49:00 Test Item Value Reference Range Interpretation Comments Chloride Lvl (test code = Chloride Lvl) 103 95-109 [facility] HospitalGdmiipeRGPUZUNBFOEP0225-59-76 16:49:00 Test Item Value Reference Range Interpretation Comments Calcium Lvl (test code = Calcium Lvl) 8.9 8.5-10.5 [facility] HospitalAfyknoaQWAMHAXVBORC3890-30-78 16:49:00 Test Item Value Reference Range Interpretation Comments Creatinine Lvl (test code = Creatinine 1.54 0.50-1.40 Lvl) [facility] HospitalNjeyvgsHZDYWICIRTPE2288-28-89 16:49:00 Test Item Value Reference Range Interpretation Comments BUN (test code = BUN) 24 7-22 [facility] HospitalWxpspukIMFCRXOCNNWA8541-19-78 16:49:00 Test Item Value Reference Range Interpretation Comments Glucose Lvl (test code = Glucose Lvl) 229 70-99 [facility] NortheastBxfqgvwWZFLAVKELB8161-75-08 16:49:00 Test Item Value Reference Range Interpretation Comments MCV (test code = MCV) 85.8 80.0-94.0 [facility] NortheastUjvlckgPNJPHJXOCA9924-35-18 16:49:00 Test Item Value Reference Range Interpretation Comments Hgb (test code = Hgb) 12.8 14.0-18.0 [place]226-12-22 16:49:00 Test Item Value Reference Range Interpretation Comments Hct (test code = Hct) 38.8 42.0-54.0 [place] 364226-12-22 16:49:00 Test Item Value Reference Range Interpretation Comments RBC (test code = RBC) 4.52 4.70-6.10 [facility] NortheastFghijvoTTTWRORYNY3771-73-62 16:49:00 Test Item Value Reference Range Interpretation Comments WBC (test code = WBC) 10.8 3.7-10.4 [facility] NortheastNbyueyuOGLNYEOELG4391-27-07 16:49:00 Test Item Value Reference Range Interpretation Comments Platelet (test code = Platelet) 350 133-450 [facility] NortheastCdiclvrVZLCBOVWNJ3611-98-07 16:49:00 Test Item Value Reference Range Interpretation Comments MPV (test code = MPV) 6.5 7.4-10.4 [facility] NortheastZprpdvaSGHWQKYVCL1265-31-74 16:49:00 Test Item Value Reference Range Interpretation Comments RDW (test code = RDW) 13.3 11.5-14.5 [facility] NortheastWpmxsvtEKIUKGASJJ9950-20-03 16:49:00 Test Item Value Reference Range Interpretation Comments MCH (test code = MCH) 28.2 pg 27.0-31.0 [facility] NortheastKxuoybwRYPUEPSXIT8934-64-85 16:49:00 Test Item Value Reference Range Interpretation Comments MCHC (test code = MCHC) 32.9 32.0-36.0 [facility] NortheastKisybcuWECTKQZVWU9865-54-80 16:49:00 Test Item Value Reference Range Interpretation Comments Basophils # (test code 0.1 See_Comment [Aut omated message] The = Basophils #) system which generated this result tra nsmitted reference range : <=0.2. The reference r davey was not used to int erpret this result as normal/abnormal . [facility] NortheastKuhhhjfLGDMSSFFCO8661-45-06 16:49:00 Test Item Value Reference Range Interpretation Comments Eosinophils # (test code 0.1 See_Comment [A utomated message] The = Eosinophils #) system [facility] h generated this result tra nsmitted reference range : <=0.5. The reference r davey was not used to int erpret this result as normal/abnormal . [facility] NortheastOvmwhtqLPMORXZIEM2577-75-69 16:49:00 Test Item Value Reference Range Interpretation Comments Monocytes # (test code 0.8 See_Comment [Aut omated message] The = Monocytes #) system which generated this result tra nsmitted reference range : <=0.8. The reference r davey was not used to int erpret this result as normal/abnormal . [facility] NortheastEwjqcgdYZCPCOUSIA5911-83-60 16:49:00 Test Item Value Reference Range Interpretation Comments Lymphocytes # (test code = Lymphocytes 3.1 1.0-5.5 #) [facility] NortheastNtjsjptEEHRBESHLB3851-64-51 16:49:00 Test Item Value Reference Range Interpretation Comments Segs-Bands # (test code = Segs-Bands #) 6.8 1.5-8.1 [facility] NortheastVdiebunGDXTPGBNQH7128-65-31 16:49:00 Test Item Value Reference Range Interpretation Comments Basophils (test code = 0.6 See_Comment [Aut omated message] The Basophils) system which ge nerated this result tra nsmitted reference range : <=1.0. The reference r davey was not used to int erpret this result as normal/abnormal . [facility] NortheastSpibvqxEVPPZLGYTQ4004-34-55 16:49:00 Test Item Value Reference Range Interpretation Comments Eosinophils (test code = 0.6 See_Comment [A utomated message] The Eosinophils) system which ge nerated this result tra nsmitted reference range : <=4.0. The reference r davey was not used to int erpret this result as normal/abnormal . [facility] NortheastTdynbkdSPNWUFWCCG0478-69-95 16:49:00 Test Item Value Reference Range Interpretation Comments Monocytes (test code = Monocytes) 7.7 2.0-12.0 [facility] NortheastOqkjbzfQEKVSJFLHB5015-54-94 16:49:00 Test Item Value Reference Range Interpretation Comments Lymphocytes (test code = Lymphocytes) 28.6 20.0-40.0 [facility] NortheastXihchxwQDGCBSJBXK8559-11-04 16:49:00 Test Item Value Reference Range Interpretation Comments Segs (test code = Segs) 62.5 45.0-75.0 [facility]2016-12-22 16:49:00 Test Item Value Reference Range Interpretation Comments Lactic Acid Lvl (test code = Lactic 1.4 0.5-2.2 Acid Lvl) [facility] HospitalUdmybnvVSIJVQOATPOV0457-77-09 16:49:00 Test Item Value Reference Range Interpretation Comments AGAP (test code = AGAP) 11.0 10.0-20.0 [facility] HospitalGlimnjnZRILMSOSPGYJ6018-31-16 16:49:00 Test Item Value Reference Range Interpretation Comments eGFR (test code = eGFR) 54 [facility] HospitalScatksdMFSGGWNZGVML7005-90-78 16:49:00 Test Item Value Reference Range Interpretation Comments Sodium Lvl (test code = Sodium Lvl) 139 135-145 [facility] HospitalFodepixDMTQODCWRVNI9434-85-05 16:49:00 Test Item Value Reference Range Interpretation Comments Potassium Lvl (test code = Potassium 4.0 3.5-5.1 Lvl) [facility] HospitalKvpioomKZDKRLNTWVDE7741-23-27 16:49:00 Test Item Value Reference Range Interpretation Comments CO2 (test code = CO2) 29 24-32 [facility] HospitalNhnybeyPJWBQEJWKAHM4879-22-04 16:49:00 Test Item Value Reference Range Interpretation Comments Chloride Lvl (test code = Chloride Lvl) 103 95-109 [facility] HospitalIoveyyfBBYUVXTGKLKB7170-02-43 16:49:00 Test Item Value Reference Range Interpretation Comments Calcium Lvl (test code = Calcium Lvl) 8.9 8.5-10.5 [facility] HospitalYrfwxsyLWMGWOKECGWL5133-39-45 16:49:00 Test Item Value Reference Range Interpretation Comments Creatinine Lvl (test code = Creatinine 1.54 0.50-1.40 Lvl) [facility] HospitalYyginbvXFBVDJFFJNTC9635-38-99 16:49:00 Test Item Value Reference Range Interpretation Comments BUN (test code = BUN) 24 7-22 [facility] HospitalLmztprxUEQTSRUSSPIN6643-73-38 16:49:00 Test Item Value Reference Range Interpretation Comments Glucose Lvl (test code = Glucose Lvl) 229 70-99 [facility] NortheastNokruvhROMTUKDTFG7261-64-67 16:49:00 Test Item Value Reference Range Interpretation Comments MCV (test code = MCV) 85.8 80.0-94.0 [facility] NortheastFgfgbcbZFRHWGSAXX8716-41-10 16:49:00 Test Item Value Reference Range Interpretation Comments Hgb (test code = Hgb) 12.8 14.0-18.0 [facility] NortheastNbdnqlsVSJBVEYHDR2745-04-68 16:49:00 Test Item Value Reference Range Interpretation Comments Hct (test code = Hct) 38.8 42.0-54.0 [facility] NortheastEqweeimMBMPZDRPBX0293-04-63 16:49:00 Test Item Value Reference Range Interpretation Comments RBC (test code = RBC) 4.52 4.70-6.10 [facility] NortheastMonfjqsNIMTPJSYQM0688-60-31 16:49:00 Test Item Value Reference Range Interpretation Comments WBC (test code = WBC) 10.8 3.7-10.4 [facility] NortheastUeedlgwGQDQVPWZSS0094-20-36 16:49:00 Test Item Value Reference Range Interpretation Comments Platelet (test code = Platelet) 350 133-450 [facility] NortheastXxsarcpUDJXQNKPOO1786-70-83 16:49:00 Test Item Value Reference Range Interpretation Comments MPV (test code = MPV) 6.5 7.4-10.4 [facility] NortheastNteenfsSGHERONBEP0587-68-61 16:49:00 Test Item Value Reference Range Interpretation Comments RDW (test code = RDW) 13.3 11.5-14.5 [facility] NortheastWuaosgtMZBYOIKAPX4637-79-88 16:49:00 Test Item Value Reference Range Interpretation Comments MCH (test code = MCH) 28.2 pg 27.0-31.0 [facility] NortheastIfwgmjcEVWURIUUDE0110-90-27 16:49:00 Test Item Value Reference Range Interpretation Comments MCHC (test code = MCHC) 32.9 32.0-36.0 [facility] NortheastSbpwhkoYDAIQYTMXM9911-81-79 16:49:00 Test Item Value Reference Range Interpretation Comments Basophils # (test code 0.1 See_Comment [Aut omated message] The = Basophils #) system which generated this result tra nsmitted reference range : <=0.2. The reference r davey was not used to int erpret this result as normal/abnormal . [facility] NortheastIkixszqSJBTNGHYHX9390-39-05 16:49:00 Test Item Value Reference Range Interpretation Comments Eosinophils # (test code 0.1 See_Comment [A utomated message] The = Eosinophils #) system whic h generated this result tra nsmitted reference range : <=0.5. The reference r davey was not used to int erpret this result as normal/abnormal . [facility] NortheastWujnakjKIVCVNAFQE6216-01-60 16:49:00 Test Item Value Reference Range Interpretation Comments Monocytes # (test code 0.8 See_Comment [Aut omated message] The = Monocytes #) system which generated this result tra nsmitted reference range : <=0.8. The reference r davey was not used to int erpret this result as normal/abnormal . [facility] NortheastQddhmfrGQEQHFKDIG6906-83-20 16:49:00 Test Item Value Reference Range Interpretation Comments Lymphocytes # (test code = Lymphocytes 3.1 1.0-5.5 #) [facility] NortheastRcgugseRZOGWAAXJB8809-05-89 16:49:00 Test Item Value Reference Range Interpretation Comments Segs-Bands # (test code = Segs-Bands #) 6.8 1.5-8.1 [facility] NortheastXfxcrotOOBVZQDXEG3004-13-07 16:49:00 Test Item Value Reference Range Interpretation Comments Basophils (test code = 0.6 See_Comment [Aut omated message] The Basophils) system which ge nerated this result tra nsmitted reference range : <=1.0. The reference r davey was not used to int erpret this result as normal/abnormal . [facility] NortheastWopwskeYNHDVYWKRC6610-66-89 16:49:00 Test Item Value Reference Range Interpretation Comments Eosinophils (test code = 0.6 See_Comment [A utomated message] The Eosinophils) system which ge nerated this result tra nsmitted reference range : <=4.0. The reference r davey was not used to int erpret this result as normal/abnormal . [facility] NortheastYpxbhlbMMHJJYZDAY0302-00-91 16:49:00 Test Item Value Reference Range Interpretation Comments Monocytes (test code = Monocytes) 7.7 2.0-12.0 [facility] NortheastPwdcysnAHHDCVQKDI8984-57-40 16:49:00 Test Item Value Reference Range Interpretation Comments Lymphocytes (test code = Lymphocytes) 28.6 20.0-40.0 [facility] NortheastXtiuudyNCQETHNODN5223-53-29 16:49:00 Test Item Value Reference Range Interpretation Comments Segs (test code = Segs) 62.5 45.0-75.0 [facility]2016-12-22 16:49:00 Test Item Value Reference Range Interpretation Comments Lactic Acid Lvl (test code = Lactic 1.4 0.5-2.2 Acid Lvl) [facility] HospitalKemjkfoMVKZHSSPGYHV1226-84-90 16:49:00 Test Item Value Reference Range Interpretation Comments AGAP (test code = AGAP) 11.0 10.0-20.0 [facility] HospitalOafrwlkEKCBTIZLDXGB5389-37-68 16:49:00 Test Item Value Reference Range Interpretation Comments eGFR (test code = eGFR) 54 [facility] HospitalZevxhhdFPZFTNUJBQPN1456-04-17 16:49:00 Test Item Value Reference Range Interpretation Comments Sodium Lvl (test code = Sodium Lvl) 139 135-145 [facility] HospitalIdpflsgYNLYCGTJDAKD0540-14-04 16:49:00 Test Item Value Reference Range Interpretation Comments Potassium Lvl (test code = Potassium 4.0 3.5-5.1 Lvl) [facility] HospitalWyoguleFTSNGNTTVPJU8804-52-01 16:49:00 Test Item Value Reference Range Interpretation Comments CO2 (test code = CO2) 29 24-32 [facility] HospitalQnxusriIJHOLPZGLUGP3711-84-21 16:49:00 Test Item Value Reference Range Interpretation Comments Chloride Lvl (test code = Chloride Lvl) 103 95-109 [facility] HospitalBrqxmbySSVYCAFDYANK5084-43-76 16:49:00 Test Item Value Reference Range Interpretation Comments Calcium Lvl (test code = Calcium Lvl) 8.9 8.5-10.5 [facility] HospitalOkpunbpJAAKJQRAWWKM0131-42-69 16:49:00 Test Item Value Reference Range Interpretation Comments Creatinine Lvl (test code = Creatinine 1.54 0.50-1.40 Lvl) [facility] HospitalPavdfzkDZHANOBQYBWQ4045-69-34 16:49:00 Test Item Value Reference Range Interpretation Comments BUN (test code = BUN) 24 7-22 [facility] HospitalScxafjhHVLTCZBXGSMP6531-87-12 16:49:00 Test Item Value Reference Range Interpretation Comments Glucose Lvl (test code = Glucose Lvl) 229 70-99 [facility] NortheastEonketqGGXMYPUERB5951-65-42 16:49:00 Test Item Value Reference Range Interpretation Comments MCV (test code = MCV) 85.8 80.0-94.0 [facility] NortheastWduzganCOAGNDGWQS6405-96-83 16:49:00 Test Item Value Reference Range Interpretation Comments Hgb (test code = Hgb) 12.8 14.0-18.0 [facility] NortheastTpffhavOMKZUKPBQC4187-81-46 16:49:00 Test Item Value Reference Range Interpretation Comments Hct (test code = Hct) 38.8 42.0-54.0 [place] 364226-12-22 16:49:00 Test Item Value Reference Range Interpretation Comments RBC (test code = RBC) 4.52 4.70-6.10 [facility] NortheastJchtzinITPFBLMHKM5361-88-69 16:49:00 Test Item Value Reference Range Interpretation Comments WBC (test code = WBC) 10.8 3.7-10.4 [facility] NortheastEvwckdxVHPBEHUYKM8855-16-56 16:49:00 Test Item Value Reference Range Interpretation Comments Platelet (test code = Platelet) 350 133-450 [facility] NortheastQelxwmlASOMBKHJMY8153-46-44 16:49:00 Test Item Value Reference Range Interpretation Comments MPV (test code = MPV) 6.5 7.4-10.4 [facility] NortheastPjpfsahGWPSPTPJCL9980-37-29 16:49:00 Test Item Value Reference Range Interpretation Comments RDW (test code = RDW) 13.3 11.5-14.5 [facility] NortheastVsrgwddIXDRIEDPHG4280-32-12 16:49:00 Test Item Value Reference Range Interpretation Comments MCH (test code = MCH) 28.2 pg 27.0-31.0 [facility] NortheastMlibhohEBOUHRZWNP8554-02-61 16:49:00 Test Item Value Reference Range Interpretation Comments MCHC (test code = MCHC) 32.9 32.0-36.0 [facility] NortheastYlkicheVULPJZPATQ4387-71-31 16:49:00 Test Item Value Reference Range Interpretation Comments Basophils # (test code 0.1 See_Comment [Aut omated message] The = Basophils #) system which generated this result tra nsmitted reference range : <=0.2. The reference r davey was not used to int erpret this result as normal/abnormal . [facility] NortheastElryrsrPSVUYUTFSV0878-34-69 16:49:00 Test Item Value Reference Range Interpretation Comments Eosinophils # (test code 0.1 See_Comment [A utomated message] The = Eosinophils #) system whic h generated this result tra nsmitted reference range : <=0.5. The reference r davey was not used to int erpret this result as normal/abnormal . [facility] NortheastFtmfiwlTSPTMXRIAQ8429-81-66 16:49:00 Test Item Value Reference Range Interpretation Comments Monocytes # (test code 0.8 See_Comment [Aut omated message] The = Monocytes #) system which generated this result tra nsmitted reference range : <=0.8. The reference r davey was not used to int erpret this result as normal/abnormal . [facility] NortheastTdeeykrLPKMEXOLWC5789-63-08 16:49:00 Test Item Value Reference Range Interpretation Comments Lymphocytes # (test code = Lymphocytes 3.1 1.0-5.5 #) [facility] NortheastVogixipMFCJDNFCJZ2570-37-59 16:49:00 Test Item Value Reference Range Interpretation Comments Segs-Bands # (test code = Segs-Bands #) 6.8 1.5-8.1 [facility] NortheastYqohubgFVPYNVTHAE4535-42-84 16:49:00 Test Item Value Reference Range Interpretation Comments Basophils (test code = 0.6 See_Comment [Aut omated message] The Basophils) system which ge nerated this result tra nsmitted reference range : <=1.0. The reference r davey was not used to int erpret this result as normal/abnormal . [facility] NortheastTznmwldJIDJITQMOT2588-58-28 16:49:00 Test Item Value Reference Range Interpretation Comments Eosinophils (test code = 0.6 See_Comment [A utomated message] The Eosinophils) system which ge nerated this result tra nsmitted reference range : <=4.0. The reference r davey was not used to int erpret this result as normal/abnormal . [facility] NortheastKmwgavpUQDEBQQOGH5582-97-34 16:49:00 Test Item Value Reference Range Interpretation Comments Monocytes (test code = Monocytes) 7.7 2.0-12.0 [facility]cfwrjJZMVNTTUFK0385-33-53 16:49:00 Test Item Value Reference Range Interpretation Comments Lymphocytes (test code = Lymphocytes) 28.6 20.0-40.0 [facility] NortheastDcxikedJXEOPERVVH0942-40-27 16:49:00 Test Item Value Reference Range Interpretation Comments Segs (test code = Segs) 62.5 45.0-75.0 [facility]bfwrzjNCMADVKTSKZR5110-53-30 10:27:00 Test Item Value Reference Range Interpretation Comments Sodium Lvl (test code = Sodium Lvl) 135 135-145 [facility] HospitalHpuggoyKBFXIMAJTXAB7119-73-53 10:27:00 Test Item Value Reference Range Interpretation Comments Potassium Lvl (test code = Potassium 4.4 3.5-5.1 Lvl) [facility] HospitalJnumbeqMQAEYUMVRDME8184-61-13 10:27:00 Test Item Value Reference Range Interpretation Comments eGFR (test code = eGFR) 55 [facility] NortheastYqhrknfZGOKXWNXPD4110-95-56 10:27:00 Test Item Value Reference Range Interpretation Comments Eosinophils (test code = 1.6 See_Comment [A utomated message] The Eosinophils) system which ge nerated this result tra nsmitted reference range : <=4.0. The reference r davey was not used to int erpret this result as normal/abnormal . [facility] NortheastOvaijvbBBJJDODLZJ2440-64-60 10:27:00 Test Item Value Reference Range Interpretation Comments Lymphocytes # (test code = Lymphocytes 3.4 1.0-5.5 #) [facility] NortheastJzxhtqpXUIRJDEFRP1815-94-60 10:27:00 Test Item Value Reference Range Interpretation Comments Basophils (test code = 0.3 See_Comment [Aut omated message] The Basophils) system which ge nerated this result tra nsmitted reference range : <=1.0. The reference r davey was not used to int erpret this result as normal/abnormal . [facility] NortheastAgaiypgSWBJFUXPUD4380-40-79 10:27:00 Test Item Value Reference Range Interpretation Comments Monocytes # (test code 0.6 See_Comment [Aut omated message] The = Monocytes #) system which generated this result tra nsmitted reference range : <=0.8. The reference r davey was not used to int erpret this result as normal/abnormal . [facility] NortheastGeqdmcxCNNGODHGMY4172-65-04 10:27:00 Test Item Value Reference Range Interpretation Comments Segs-Bands # (test code = Segs-Bands #) 5.3 1.5-8.1 [facility] NortheastYhzrrnxUVSVHWQJVK4347-59-26 10:27:00 Test Item Value Reference Range Interpretation Comments Segs (test code = Segs) 56.3 45.0-75.0 [facility] NortheastXfekivsQGVDWIWNHC7800-76-67 10:27:00 Test Item Value Reference Range Interpretation Comments Monocytes (test code = Monocytes) 6.0 2.0-12.0 [facility] NortheastIimcnhwJMBABACUNG7381-86-51 10:27:00 Test Item Value Reference Range Interpretation Comments Lymphocytes (test code = Lymphocytes) 35.8 20.0-40.0 [facility] NortheastWpumzvhXBUILCUMAN5800-10-04 10:27:00 Test Item Value Reference Range Interpretation Comments Eosinophils # (test code 0.2 See_Comment [A utomated message] The = Eosinophils #) system whic h generated this result tra nsmitted reference range : <=0.5. The reference r davey was not used to int erpret this result as normal/abnormal . [facility] NortheastZfnjmuiCBCDSKLBAO1837-45-38 10:27:00 Test Item Value Reference Range Interpretation Comments Platelet (test code = Platelet) 363 133-450 [facility] NortheastGqlhtxlZRYKFOOVUD7457-12-05 10:27:00 Test Item Value Reference Range Interpretation Comments MPV (test code = MPV) 6.3 7.4-10.4 [facility]fsunvdXOHAVOZFHE6755-91-77 10:27:00 Test Item Value Reference Range Interpretation Comments MCHC (test code = MCHC) 33.0 32.0-36.0 [facility]QzaplgtZLLFLSKJVJ7578-84-92 10:27:00 Test Item Value Reference Range Interpretation Comments RDW (test code = RDW) 13.3 11.5-14.5 [facility]KymgqowIZPFMHDEIQ9617-03-39 10:27:00 Test Item Value Reference Range Interpretation Comments Hct (test code = Hct) 41.9 42.0-54.0 [facility]PqevssmCOSILYPKXL9768-66-70 10:27:00 Test Item Value Reference Range Interpretation Comments MCV (test code = MCV) 86.1 80.0-94.0 [facility]YqlhypnJPAWSVWYAV3507-10-46 10:27:00 Test Item Value Reference Range Interpretation Comments RBC (test code = RBC) 4.87 4.70-6.10 [facility]QqdfqtjSWASWPGZFH8063-13-94 10:27:00 Test Item Value Reference Range Interpretation Comments Hgb (test code = Hgb) 13.8 14.0-18.0 [facility]NzevirsYXFXGJLVWE4567-45-24 10:27:00 Test Item Value Reference Range Interpretation Comments WBC (test code = WBC) 9.4 3.7-10.4 [facility]PhssebsGAKUYWFRQG0713-24-88 10:27:00 Test Item Value Reference Range Interpretation Comments MCH (test code = MCH) 28.4 pg 27.0-31.0 [facility] XQPFO4490-65-77 10:27:00 Test Item Value Reference Range Interpretation Comments Magnesium Lvl (test code = Magnesium 2.0 1.8-2.4 Lvl) [facility]OlnbjmlVDTJBVBYJVJK4501-40-83 10:27:00 Test Item Value Reference Range Interpretation Comments Chloride Lvl (test code = Chloride Lvl) 103 95-109 [facility] HospitalVataeffTSBESZMXTYDU0650-27-91 10:27:00 Test Item Value Reference Range Interpretation Comments AGAP (test code = AGAP) 8.4 10.0-20.0 [facility] HospitalCyzbpvsRCPQKHKLOJBO5892-46-72 10:27:00 Test Item Value Reference Range Interpretation Comments Calcium Lvl (test code = Calcium Lvl) 9.0 8.5-10.5 [facility] HospitalBtamvefULGUWSJCAYUV8774-83-60 10:27:00 Test Item Value Reference Range Interpretation Comments CO2 (test code = CO2) 28 24-32 [facility] HospitalPoaxhpqPLPTZHSREPFE2492-28-09 10:27:00 Test Item Value Reference Range Interpretation Comments Glucose Lvl (test code = Glucose Lvl) 114 70-99 [facility] HospitalYqklobrTMBGHBZSSQVK6891-11-45 10:27:00 Test Item Value Reference Range Interpretation Comments BUN (test code = BUN) 21 7-22 [facility] HospitalRmochfyFZKJCOASWTTH3834-15-51 10:27:00 Test Item Value Reference Range Interpretation Comments Creatinine Lvl (test code = Creatinine 1.52 0.50-1.40 Lvl) [facility] HospitalQqiltgtGOXIHZIXEJFC2983-73-90 10:27:00 Test Item Value Reference Range Interpretation Comments Sodium Lvl (test code = Sodium Lvl) 135 135-145 [facility] HospitalMwjtnieEMTHRTVTPGFU5837-48-38 10:27:00 Test Item Value Reference Range Interpretation Comments Potassium Lvl (test code = Potassium 4.4 3.5-5.1 Lvl) [facility] HospitalJwevokiFCMQLUUWFEPA3672-85-71 10:27:00 Test Item Value Reference Range Interpretation Comments eGFR (test code = eGFR) 55 [facility]ennialBjlrpbaVFMDIYEBKR1579-02-35 10:27:00 Test Item Value Reference Range Interpretation Comments Eosinophils (test code = 1.6 See_Comment [A utomated message] The Eosinophils) system which ge nerated this result tra nsmitted reference range : <=4.0. The reference r davey was not used to int erpret this result as normal/abnormal . [facility] NortheastTrrufliBOMWPOGYXB4205-39-86 10:27:00 Test Item Value Reference Range Interpretation Comments Lymphocytes # (test code = Lymphocytes 3.4 1.0-5.5 #) [facility]PvoawlgIHEQZDQBCR3455-63-93 10:27:00 Test Item Value Reference Range Interpretation Comments Basophils (test code = 0.3 See_Comment [Aut omated message] The Basophils) system which ge nerated this result tra nsmitted reference range : <=1.0. The reference r davey was not used to int erpret this result as normal/abnormal . [facility] NortheastVeauxdxMYDXJIURRS9953-06-16 10:27:00 Test Item Value Reference Range Interpretation Comments Monocytes # (test code 0.6 See_Comment [Aut omated message] The = Monocytes #) system which generated this result tra nsmitted reference range : <=0.8. The reference r davey was not used to int erpret this result as normal/abnormal . [facility] NortheastDdwqcsbNBNMDNCMEL0577-38-23 10:27:00 Test Item Value Reference Range Interpretation Comments Segs-Bands # (test code = Segs-Bands #) 5.3 1.5-8.1 [facility] NortheastTkvjlahJYGGCNJJVF0230-39-39 10:27:00 Test Item Value Reference Range Interpretation Comments Segs (test code = Segs) 56.3 45.0-75.0 [facility] NortheastMnyvxtdMYQMKVEJEC6783-61-12 10:27:00 Test Item Value Reference Range Interpretation Comments Monocytes (test code = Monocytes) 6.0 2.0-12.0 [facility] NortheastUnckqahMBQDYWLBGQ9027-85-44 10:27:00 Test Item Value Reference Range Interpretation Comments Lymphocytes (test code = Lymphocytes) 35.8 20.0-40.0 [facility]PoqqsuyTVFLZYGVMH9698-43-88 10:27:00 Test Item Value Reference Range Interpretation Comments Eosinophils # (test code 0.2 See_Comment [A utomated message] The = Eosinophils #) system whic h generated this result tra nsmitted reference range : <=0.5. The reference r davey was not used to int erpret this result as normal/abnormal . [facility]ennialJutgcejMZBLJGCCHV9930-36-41 10:27:00 Test Item Value Reference Range Interpretation Comments Platelet (test code = Platelet) 363 133-450 [facility]AouuftlHXOUVLSGOH6285-08-15 10:27:00 Test Item Value Reference Range Interpretation Comments MPV (test code = MPV) 6.3 7.4-10.4 [facility]ennialNmqdlgwHRLXKTYYQC7165-52-44 10:27:00 Test Item Value Reference Range Interpretation Comments MCHC (test code = MCHC) 33.0 32.0-36.0 [facility] CentennialZfcvodcUSZTCXFNBM9960-38-63 10:27:00 Test Item Value Reference Range Interpretation Comments RDW (test code = RDW) 13.3 11.5-14.5 [facility] NortheastWboysjhBMSTCZAROY2721-53-71 10:27:00 Test Item Value Reference Range Interpretation Comments Hct (test code = Hct) 41.9 42.0-54.0 [facility] NortheastWwtrahnCEXKMWVTMZ5461-66-14 10:27:00 Test Item Value Reference Range Interpretation Comments MCV (test code = MCV) 86.1 80.0-94.0 [facility]ennialDrmmopnMVPOXWVPBP3689-30-99 10:27:00 Test Item Value Reference Range Interpretation Comments RBC (test code = RBC) 4.87 4.70-6.10 [facility] NortheastWswsqgmHLIWPKOHZN5453-86-41 10:27:00 Test Item Value Reference Range Interpretation Comments Hgb (test code = Hgb) 13.8 14.0-18.0 [facility]ennialMjakmhcSQEEUMNRLY9881-21-99 10:27:00 Test Item Value Reference Range Interpretation Comments WBC (test code = WBC) 9.4 3.7-10.4 [facility]ennialUlyvxqsEFFZCFIXUO5212-29-56 10:27:00 Test Item Value Reference Range Interpretation Comments MCH (test code = MCH) 28.4 pg 27.0-31.0 [facility]2016-12-21 10:27:00 Test Item Value Reference Range Interpretation Comments Magnesium Lvl (test code = Magnesium 2.0 1.8-2.4 Lvl) [facility] HospitalRfqzihvQVNYBVHJFSDY7685-09-88 10:27:00 Test Item Value Reference Range Interpretation Comments Chloride Lvl (test code = Chloride Lvl) 103 95-109 [facility] HospitalYqjixajGZEJXBGEHJBX5639-61-08 10:27:00 Test Item Value Reference Range Interpretation Comments AGAP (test code = AGAP) 8.4 10.0-20.0 [facility] HospitalLdcbfigIHPRXLSUMBLD0787-72-09 10:27:00 Test Item Value Reference Range Interpretation Comments Calcium Lvl (test code = Calcium Lvl) 9.0 8.5-10.5 [facility] HospitalAhxlitfMQZNMAJXQFIP8383-21-16 10:27:00 Test Item Value Reference Range Interpretation Comments CO2 (test code = CO2) 28 24-32 [facility] HospitalZmximunUESDWFKPJGHV7898-25-16 10:27:00 Test Item Value Reference Range Interpretation Comments Glucose Lvl (test code = Glucose Lvl) 114 70-99 [facility] HospitalOfeocepSCWLVWQPQKFO3558-99-30 10:27:00 Test Item Value Reference Range Interpretation Comments BUN (test code = BUN) 21 7-22 [facility] HospitalPmxxmqdWZTWJXXCIBFH0465-50-98 10:27:00 Test Item Value Reference Range Interpretation Comments Creatinine Lvl (test code = Creatinine 1.52 0.50-1.40 Lvl) [facility] HospitalHaqfnwcJZNPTPZQMZQD7716-42-92 10:27:00 Test Item Value Reference Range Interpretation Comments Sodium Lvl (test code = Sodium Lvl) 135 135-145 [facility] HospitalBkgameiGSTIPIWBFZWB2022-86-96 10:27:00 Test Item Value Reference Range Interpretation Comments Potassium Lvl (test code = Potassium 4.4 3.5-5.1 Lvl) [facility] HospitalOibwshgQODPZNORZMJK4726-48-91 10:27:00 Test Item Value Reference Range Interpretation Comments eGFR (test code = eGFR) 55 [facility]HrivqauZOTEWNZYDK9202-69-03 10:27:00 Test Item Value Reference Range Interpretation Comments Eosinophils (test code = 1.6 See_Comment [A utomated message] The Eosinophils) system which ge nerated this result tra nsmitted reference range : <=4.0. The reference r davey was not used to int erpret this result as normal/abnormal . [facility] NortheastTncelryPTGWEGYXEX5550-45-51 10:27:00 Test Item Value Reference Range Interpretation Comments Lymphocytes # (test code = Lymphocytes 3.4 1.0-5.5 #) [facility] NortheastGlowlknPIHKMDXHSM5496-55-84 10:27:00 Test Item Value Reference Range Interpretation Comments Basophils (test code = 0.3 See_Comment [Aut omated message] The Basophils) system which ge nerated this result tra nsmitted reference range : <=1.0. The reference r davey was not used to int erpret this result as normal/abnormal . [facility] NortheastObfdyadDPWANFCGVZ3941-86-08 10:27:00 Test Item Value Reference Range Interpretation Comments Monocytes # (test code 0.6 See_Comment [Aut omated message] The = Monocytes #) system which generated this result tra nsmitted reference range : <=0.8. The reference r davey was not used to int erpret this result as normal/abnormal . [facility] NortheastNninopmVKYKISNHPY1379-48-97 10:27:00 Test Item Value Reference Range Interpretation Comments Segs-Bands # (test code = Segs-Bands #) 5.3 1.5-8.1 [facility] NortheastPynpgoxTXWDGLPVNJ8899-81-49 10:27:00 Test Item Value Reference Range Interpretation Comments Segs (test code = Segs) 56.3 45.0-75.0 [facility] NortheastChvhsfrUSRAQNDHPV7422-76-79 10:27:00 Test Item Value Reference Range Interpretation Comments Monocytes (test code = Monocytes) 6.0 2.0-12.0 [facility] NortheastFyjnmyvWBBEEBPTUN5319-78-36 10:27:00 Test Item Value Reference Range Interpretation Comments Lymphocytes (test code = Lymphocytes) 35.8 20.0-40.0 [facility] NortheastBluxixwYTGPIIQWBU1993-98-21 10:27:00 Test Item Value Reference Range Interpretation Comments Eosinophils # (test code 0.2 See_Comment [A utomated message] The = Eosinophils #) system [facility] h generated this result tra nsmitted reference range : <=0.5. The reference r davey was not used to int erpret this result as normal/abnormal . [facility] NortheastOmrhaghQJPVGFPAXK4813-79-96 10:27:00 Test Item Value Reference Range Interpretation Comments Platelet (test code = Platelet) 363 133-450 [facility] NortheastYtnjbhlUJWSIEKYOT4098-73-45 10:27:00 Test Item Value Reference Range Interpretation Comments MPV (test code = MPV) 6.3 7.4-10.4 [facility] NortheastLgfvnwlOGDFUVWMQO7847-05-82 10:27:00 Test Item Value Reference Range Interpretation Comments MCHC (test code = MCHC) 33.0 32.0-36.0 [facility] NortheastXazrwxzFWZUSYYONG0914-45-98 10:27:00 Test Item Value Reference Range Interpretation Comments RDW (test code = RDW) 13.3 11.5-14.5 [facility]XnhxwaxEKBPVMNUMJ5267-78-52 10:27:00 Test Item Value Reference Range Interpretation Comments Hct (test code = Hct) 41.9 42.0-54.0 [facility] NortheastJuiwbuvXWXATWJOSP2634-91-01 10:27:00 Test Item Value Reference Range Interpretation Comments MCV (test code = MCV) 86.1 80.0-94.0 [facility] NortheastRimagtlDNFJVNXYBF5567-69-83 10:27:00 Test Item Value Reference Range Interpretation Comments RBC (test code = RBC) 4.87 4.70-6.10 [facility] NortheastIztzehrWAQQDPKCUB5125-72-54 10:27:00 Test Item Value Reference Range Interpretation Comments Hgb (test code = Hgb) 13.8 14.0-18.0 [facility] NortheastMgwzxckLONPBELSED0054-50-70 10:27:00 Test Item Value Reference Range Interpretation Comments WBC (test code = WBC) 9.4 3.7-10.4 [facility] NortheastTxrlttgWQPSLGMCGV8405-16-33 10:27:00 Test Item Value Reference Range Interpretation Comments MCH (test code = MCH) 28.4 pg 27.0-31.0 [facility]2016-12-21 10:27:00 Test Item Value Reference Range Interpretation Comments Magnesium Lvl (test code = Magnesium 2.0 1.8-2.4 Lvl) [facility] HospitalWgdacmbWXPXWFTPPCEO2039-59-18 10:27:00 Test Item Value Reference Range Interpretation Comments Chloride Lvl (test code = Chloride Lvl) 103 95-109 [facility] HospitalBnmghovESUGADNLMGPX0041-07-17 10:27:00 Test Item Value Reference Range Interpretation Comments AGAP (test code = AGAP) 8.4 10.0-20.0 [facility] HospitalFjlohnfOBAPSORRBJTN9403-88-86 10:27:00 Test Item Value Reference Range Interpretation Comments Calcium Lvl (test code = Calcium Lvl) 9.0 8.5-10.5 [facility] HospitalYnprjjaCGPNVGDYLZSL0042-12-26 10:27:00 Test Item Value Reference Range Interpretation Comments CO2 (test code = CO2) 28 24-32 [facility] HospitalGqmvpskLFNKFSQAWHDD5893-56-18 10:27:00 Test Item Value Reference Range Interpretation Comments Glucose Lvl (test code = Glucose Lvl) 114 70-99 [facility] HospitalIpplfyrGCZQKQNCYKUV2391-64-54 10:27:00 Test Item Value Reference Range Interpretation Comments BUN (test code = BUN) 21 7-22 [facility] HospitalPwkqqyuXVRIZGWMEQGN0812-90-61 10:27:00 Test Item Value Reference Range Interpretation Comments Creatinine Lvl (test code = Creatinine 1.52 0.50-1.40 Lvl) [facility] HospitalGitmekkOIUWVILPOPGL2998-71-28 10:27:00 Test Item Value Reference Range Interpretation Comments Sodium Lvl (test code = Sodium Lvl) 135 135-145 [facility] HospitalQrvmikoPVPBUCZTTDHV4868-42-67 10:27:00 Test Item Value Reference Range Interpretation Comments Potassium Lvl (test code = Potassium 4.4 3.5-5.1 Lvl) [facility] HospitalKbkxmqeDGRVIYRBZQVI0669-27-49 10:27:00 Test Item Value Reference Range Interpretation Comments eGFR (test code = eGFR) 55 [facility] NortheastUmpvmcpOTJMPEISFM8660-28-56 10:27:00 Test Item Value Reference Range Interpretation Comments Eosinophils (test code = 1.6 See_Comment [A utomated message] The Eosinophils) system which ge nerated this result tra nsmitted reference range : <=4.0. The reference r davey was not used to int erpret this result as normal/abnormal . [facility] NortheastAqzmltzBILKODYKDV5014-31-22 10:27:00 Test Item Value Reference Range Interpretation Comments Lymphocytes # (test code = Lymphocytes 3.4 1.0-5.5 #) [facility] NortheastWfqnyvwDOAUGSZLED6853-57-95 10:27:00 Test Item Value Reference Range Interpretation Comments Basophils (test code = 0.3 See_Comment [Aut omated message] The Basophils) system which ge nerated this result tra nsmitted reference range : <=1.0. The reference r davey was not used to int erpret this result as normal/abnormal . [facility] NortheastKongkdwMYGIQBUFAF4784-81-53 10:27:00 Test Item Value Reference Range Interpretation Comments Monocytes # (test code 0.6 See_Comment [Aut omated message] The = Monocytes #) system which generated this result tra nsmitted reference range : <=0.8. The reference r davey was not used to int erpret this result as normal/abnormal . [facility] NortheastIeppjhjUIUMBBVOUK0108-32-47 10:27:00 Test Item Value Reference Range Interpretation Comments Segs-Bands # (test code = Segs-Bands #) 5.3 1.5-8.1 [facility] NortheastEjzfwapQSYBMZOTAJ7368-53-29 10:27:00 Test Item Value Reference Range Interpretation Comments Segs (test code = Segs) 56.3 45.0-75.0 [facility] NortheastGslzkriRQLNPXWPTW2014-25-93 10:27:00 Test Item Value Reference Range Interpretation Comments Monocytes (test code = Monocytes) 6.0 2.0-12.0 [facility] NortheastLlvctsoKRPUJUTAEG5099-75-67 10:27:00 Test Item Value Reference Range Interpretation Comments Lymphocytes (test code = Lymphocytes) 35.8 20.0-40.0 [facility] NortheastYurarlhRTFFAIDEXK9199-06-45 10:27:00 Test Item Value Reference Range Interpretation Comments Eosinophils # (test code 0.2 See_Comment [A utomated message] The = Eosinophils #) system whic h generated this result tra nsmitted reference range : <=0.5. The reference r davey was not used to int erpret this result as normal/abnormal . [facility] NortheastSjkiydqTQJUNLIUKG9679-52-28 10:27:00 Test Item Value Reference Range Interpretation Comments Platelet (test code = Platelet) 363 133-450 [facility] NortheastGhoywzbVUIZKSZZJT7221-96-46 10:27:00 Test Item Value Reference Range Interpretation Comments MPV (test code = MPV) 6.3 7.4-10.4 [facility] NortheastVhsnwovDTSAPBHKLP8369-44-37 10:27:00 Test Item Value Reference Range Interpretation Comments MCHC (test code = MCHC) 33.0 32.0-36.0 [facility] NortheastMcnwmfqJJAZBBQWDF4139-79-39 10:27:00 Test Item Value Reference Range Interpretation Comments RDW (test code = RDW) 13.3 11.5-14.5 [facility] NortheastXfvtgqzERKDRXIRBL7872-94-65 10:27:00 Test Item Value Reference Range Interpretation Comments Hct (test code = Hct) 41.9 42.0-54.0 [facility] NortheastUgsyvtxIRHDBVRRVM2703-15-69 10:27:00 Test Item Value Reference Range Interpretation Comments MCV (test code = MCV) 86.1 80.0-94.0 [facility] NortheastAdztypsERQSJQWUSZ1449-23-33 10:27:00 Test Item Value Reference Range Interpretation Comments RBC (test code = RBC) 4.87 4.70-6.10 [facility] NortheastRonzigbYUFGFWVOOA5968-79-38 10:27:00 Test Item Value Reference Range Interpretation Comments Hgb (test code = Hgb) 13.8 14.0-18.0 [facility] NortheastGakgjlsXMENZBWGQK5790-50-69 10:27:00 Test Item Value Reference Range Interpretation Comments WBC (test code = WBC) 9.4 3.7-10.4 [facility] NortheastRbmjesmVZNVJGGERC3164-08-15 10:27:00 Test Item Value Reference Range Interpretation Comments MCH (test code = MCH) 28.4 pg 27.0-31.0 [facility]2016-12-21 10:27:00 Test Item Value Reference Range Interpretation Comments Magnesium Lvl (test code = Magnesium 2.0 1.8-2.4 Lvl) [facility] HospitalMbgggsqZXVSOGVCDTDO2070-15-96 10:27:00 Test Item Value Reference Range Interpretation Comments Chloride Lvl (test code = Chloride Lvl) 103 95-109 [facility] HospitalEbdzypbHBCHWEFPJIMK6653-87-63 10:27:00 Test Item Value Reference Range Interpretation Comments AGAP (test code = AGAP) 8.4 10.0-20.0 [facility] HospitalZhhfkztLNBVSJZMGFIL6970-85-80 10:27:00 Test Item Value Reference Range Interpretation Comments Calcium Lvl (test code = Calcium Lvl) 9.0 8.5-10.5 [facility] HospitalYxnsddlMBBLDGUEXPIR4673-44-85 10:27:00 Test Item Value Reference Range Interpretation Comments CO2 (test code = CO2) 28 24-32 [facility] HospitalQavodmoCUVXFHOWTPGF2075-31-92 10:27:00 Test Item Value Reference Range Interpretation Comments Glucose Lvl (test code = Glucose Lvl) 114 70-99 [facility] HospitalSgtweupZOTQCUZWJKUD8028-24-70 10:27:00 Test Item Value Reference Range Interpretation Comments BUN (test code = BUN) 21 7-22 [facility] HospitalHbmgltzDKHBTEPLSSHH4866-88-17 10:27:00 Test Item Value Reference Range Interpretation Comments Creatinine Lvl (test code = Creatinine 1.52 0.50-1.40 Lvl) [facility] HospitalEqrhhkkZHGAZUIFGEUX0720-26-73 10:27:00 Test Item Value Reference Range Interpretation Comments Sodium Lvl (test code = Sodium Lvl) 135 135-145 [facility] HospitalTqzoqqzPKBGBKEJCQSH6953-43-49 10:27:00 Test Item Value Reference Range Interpretation Comments Potassium Lvl (test code = Potassium 4.4 3.5-5.1 Lvl) [facility] HospitalZftzqamPQEVNBIOHGTY1048-02-29 10:27:00 Test Item Value Reference Range Interpretation Comments eGFR (test code = eGFR) 55 [facility] NortheastUdgbnlrEQZZXKIRKT5081-40-01 10:27:00 Test Item Value Reference Range Interpretation Comments Eosinophils (test code = 1.6 See_Comment [A utomated message] The Eosinophils) system which ge nerated this result tra nsmitted reference range : <=4.0. The reference r davey was not used to int erpret this result as normal/abnormal . [facility] NortheastNlvcmulLVCXHOSDQW3694-31-39 10:27:00 Test Item Value Reference Range Interpretation Comments Lymphocytes # (test code = Lymphocytes 3.4 1.0-5.5 #) [facility] NortheastTgnmrziCRJDADNQWD6177-96-55 10:27:00 Test Item Value Reference Range Interpretation Comments Basophils (test code = 0.3 See_Comment [Aut omated message] The Basophils) system which ge nerated this result tra nsmitted reference range : <=1.0. The reference r davey was not used to int erpret this result as normal/abnormal . [facility] NortheastPlxlrmxAFSUWDLWCA8803-08-42 10:27:00 Test Item Value Reference Range Interpretation Comments Monocytes # (test code 0.6 See_Comment [Aut omated message] The = Monocytes #) system which generated this result tra nsmitted reference range : <=0.8. The reference r davey was not used to int erpret this result as normal/abnormal . [facility] NortheastWtbnfwsFWVOYJJLSB5265-06-39 10:27:00 Test Item Value Reference Range Interpretation Comments Segs-Bands # (test code = Segs-Bands #) 5.3 1.5-8.1 [facility] NortheastNwehjnyVVMRIZJMGE1600-26-29 10:27:00 Test Item Value Reference Range Interpretation Comments Segs (test code = Segs) 56.3 45.0-75.0 [facility] NortheastGbpaemhQHRUFXYNEV7007-13-23 10:27:00 Test Item Value Reference Range Interpretation Comments Monocytes (test code = Monocytes) 6.0 2.0-12.0 [facility] NortheastEqcqdjoRIDQYDMUBH9519-89-55 10:27:00 Test Item Value Reference Range Interpretation Comments Lymphocytes (test code = Lymphocytes) 35.8 20.0-40.0 [facility] NortheastDvyodtcYSAABHAKVA9229-41-20 10:27:00 Test Item Value Reference Range Interpretation Comments Eosinophils # (test code 0.2 See_Comment [A utomated message] The = Eosinophils #) system whic h generated this result tra nsmitted reference range : <=0.5. The reference r davey was not used to int erpret this result as normal/abnormal . [facility] NortheastLtbqpmfMEZLXIBNXL0254-63-53 10:27:00 Test Item Value Reference Range Interpretation Comments Platelet (test code = Platelet) 363 133-450 [facility] NortheastKoelwrbYXERLJYFQT6635-85-00 10:27:00 Test Item Value Reference Range Interpretation Comments MPV (test code = MPV) 6.3 7.4-10.4 [facility] NortheastIqrhigdXPNPIZJTIR3302-71-10 10:27:00 Test Item Value Reference Range Interpretation Comments MCHC (test code = MCHC) 33.0 32.0-36.0 [facility] NortheastXrgwgicWJQXJBHUIH7112-16-53 10:27:00 Test Item Value Reference Range Interpretation Comments RDW (test code = RDW) 13.3 11.5-14.5 [facility] NortheastHziqnpdCTRQUIVAQP4218-38-13 10:27:00 Test Item Value Reference Range Interpretation Comments Hct (test code = Hct) 41.9 42.0-54.0 [facility] NortheastVnfqueuQALTNAFZIE9925-39-95 10:27:00 Test Item Value Reference Range Interpretation Comments MCV (test code = MCV) 86.1 80.0-94.0 [facility] NortheastPwllcwqJSEJNUGBOD2252-33-58 10:27:00 Test Item Value Reference Range Interpretation Comments RBC (test code = RBC) 4.87 4.70-6.10 [facility]JojjowoKGNXNSKRJC9847-14-50 10:27:00 Test Item Value Reference Range Interpretation Comments Hgb (test code = Hgb) 13.8 14.0-18.0 [facility] NortheastHgqjbqzCKHNJJLPWM9235-64-05 10:27:00 Test Item Value Reference Range Interpretation Comments WBC (test code = WBC) 9.4 3.7-10.4 [facility]ennialPxcaodiHTLWLMOZFS0273-70-52 10:27:00 Test Item Value Reference Range Interpretation Comments MCH (test code = MCH) 28.4 pg 27.0-31.0 [facility]ennialCHEM JEYGD6562-27-97 10:27:00 Test Item Value Reference Range Interpretation Comments Magnesium Lvl (test code = Magnesium 2.0 1.8-2.4 Lvl) [facility]DgxivhyBHNXOJWJALRC7362-41-88 10:27:00 Test Item Value Reference Range Interpretation Comments Chloride Lvl (test code = Chloride Lvl) 103 95-109 [facility] HospitalUrwfluqEIBPNKGUGGUJ5399-64-20 10:27:00 Test Item Value Reference Range Interpretation Comments AGAP (test code = AGAP) 8.4 10.0-20.0 [facility] HospitalThmdhnsVBCWUYHZWMOD3400-10-50 10:27:00 Test Item Value Reference Range Interpretation Comments Calcium Lvl (test code = Calcium Lvl) 9.0 8.5-10.5 [facility] HospitalVfwysfgWQFVHPHBGTFP6284-50-78 10:27:00 Test Item Value Reference Range Interpretation Comments CO2 (test code = CO2) 28 24-32 [facility] HospitalPtuxmelDTMHOGWAKMNS4106-95-57 10:27:00 Test Item Value Reference Range Interpretation Comments Glucose Lvl (test code = Glucose Lvl) 114 70-99 [facility] HospitalUnopjrgBLYKKLLMUYTJ0404-11-28 10:27:00 Test Item Value Reference Range Interpretation Comments BUN (test code = BUN) 21 7-22 [facility] HospitalQvmhwikMHIJNMZYVQOS1042-73-51 10:27:00 Test Item Value Reference Range Interpretation Comments Creatinine Lvl (test code = Creatinine 1.52 0.50-1.40 Lvl) [facility] HospitalEatggurTRRXFVVBVRKO0981-61-29 10:27:00 Test Item Value Reference Range Interpretation Comments Sodium Lvl (test code = Sodium Lvl) 135 135-145 [facility] HospitalZxxwacnCRYSCHXXXPVE7107-82-45 10:27:00 Test Item Value Reference Range Interpretation Comments Potassium Lvl (test code = Potassium 4.4 3.5-5.1 Lvl) [facility] HospitalRkmugzrZKGQUEESAHQT0021-78-89 10:27:00 Test Item Value Reference Range Interpretation Comments eGFR (test code = eGFR) 55 [facility] NortheastGvvmtitCDCCINCUKA5454-48-94 10:27:00 Test Item Value Reference Range Interpretation Comments Eosinophils (test code = 1.6 See_Comment [A utomated message] The Eosinophils) system which ge nerated this result tra nsmitted reference range : <=4.0. The reference r davey was not used to int erpret this result as normal/abnormal . [facility] NortheastWedmdooXLZFCMNLZA8162-81-09 10:27:00 Test Item Value Reference Range Interpretation Comments Lymphocytes # (test code = Lymphocytes 3.4 1.0-5.5 #) [facility] NortheastBbvyddoSXEJEMYROX6905-01-49 10:27:00 Test Item Value Reference Range Interpretation Comments Basophils (test code = 0.3 See_Comment [Aut omated message] The Basophils) system which ge nerated this result tra nsmitted reference range : <=1.0. The reference r davey was not used to int erpret this result as normal/abnormal . [facility] NortheastOeytdbuIWATEHXJOH4632-41-59 10:27:00 Test Item Value Reference Range Interpretation Comments Monocytes # (test code 0.6 See_Comment [Aut omated message] The = Monocytes #) system which generated this result tra nsmitted reference range : <=0.8. The reference r davey was not used to int erpret this result as normal/abnormal . [facility] NortheastMovjamwLMDQZUXDZL6840-71-72 10:27:00 Test Item Value Reference Range Interpretation Comments Segs-Bands # (test code = Segs-Bands #) 5.3 1.5-8.1 [facility] NortheastWyxlareYBCUKYKCNO3723-43-26 10:27:00 Test Item Value Reference Range Interpretation Comments Segs (test code = Segs) 56.3 45.0-75.0 [facility] NortheastNnenfydHDWKLXRWFV9673-13-61 10:27:00 Test Item Value Reference Range Interpretation Comments Monocytes (test code = Monocytes) 6.0 2.0-12.0 [facility] NortheastUwvldohSFEWWZGPVH8147-43-29 10:27:00 Test Item Value Reference Range Interpretation Comments Lymphocytes (test code = Lymphocytes) 35.8 20.0-40.0 [facility] NortheastEtvkqapSKCMIRVUXL1422-48-44 10:27:00 Test Item Value Reference Range Interpretation Comments Eosinophils # (test code 0.2 See_Comment [A utomated message] The = Eosinophils #) system whic h generated this result tra nsmitted reference range : <=0.5. The reference r davey was not used to int erpret this result as normal/abnormal . [facility]nyfagtQUQYKDXLID2094-72-50 10:27:00 Test Item Value Reference Range Interpretation Comments Platelet (test code = Platelet) 363 133-450 [facility] RegionKwukfddGEIXEWBIGH0540-35-32 10:27:00 Test Item Value Reference Range Interpretation Comments MPV (test code = MPV) 6.3 7.4-10.4 [facility]ennialTqwbrlhUVLIABUAZM7834-83-85 10:27:00 Test Item Value Reference Range Interpretation Comments MCHC (test code = MCHC) 33.0 32.0-36.0 [facility] RegionFuhanqtODXSYMIDGV1267-50-31 10:27:00 Test Item Value Reference Range Interpretation Comments RDW (test code = RDW) 13.3 11.5-14.5 [facility] RegionZovrfvlOVNYDBAYBG1143-16-91 10:27:00 Test Item Value Reference Range Interpretation Comments Hct (test code = Hct) 41.9 42.0-54.0 [facility]ennialVxrhofgYGDAERVIGZ6328-45-37 10:27:00 Test Item Value Reference Range Interpretation Comments MCV (test code = MCV) 86.1 80.0-94.0 [facility]ennialZxiqvkjFWCSRZVKHX3975-03-55 10:27:00 Test Item Value Reference Range Interpretation Comments RBC (test code = RBC) 4.87 4.70-6.10 [facility] RegionOfunjwlQUIHJDFJDN6603-26-70 10:27:00 Test Item Value Reference Range Interpretation Comments Hgb (test code = Hgb) 13.8 14.0-18.0 [facility]ennialXmnnczrESDITITQJZ0476-31-42 10:27:00 Test Item Value Reference Range Interpretation Comments WBC (test code = WBC) 9.4 3.7-10.4 [facility] CentennialJvqbbrsZMXKRMORTO6266-45-14 10:27:00 Test Item Value Reference Range Interpretation Comments MCH (test code = MCH) 28.4 pg 27.0-31.0 [facility]ennialCHEM VQHSJ6979-08-32 10:27:00 Test Item Value Reference Range Interpretation Comments Magnesium Lvl (test code = Magnesium 2.0 1.8-2.4 Lvl) [facility]NsleezeYBGPAVIPZZCD2993-92-52 10:27:00 Test Item Value Reference Range Interpretation Comments Chloride Lvl (test code = Chloride Lvl) 103 95-109 [facility] HospitalCdflqztWVWCLXETQBKK9828-66-10 10:27:00 Test Item Value Reference Range Interpretation Comments AGAP (test code = AGAP) 8.4 10.0-20.0 [facility] HospitalXuniqmtIELXCCMNBXRK2542-57-13 10:27:00 Test Item Value Reference Range Interpretation Comments Calcium Lvl (test code = Calcium Lvl) 9.0 8.5-10.5 [facility] HospitalWrwdqujCZKVWSCWTYIE7132-45-61 10:27:00 Test Item Value Reference Range Interpretation Comments CO2 (test code = CO2) 28 24-32 [facility] HospitalNgsdlpkAQKKGTPJURHQ0759-65-82 10:27:00 Test Item Value Reference Range Interpretation Comments Glucose Lvl (test code = Glucose Lvl) 114 70-99 [facility] HospitalGqulkinGFJOMUCWNUIE8661-89-56 10:27:00 Test Item Value Reference Range Interpretation Comments BUN (test code = BUN) 21 7-22 [facility] HospitalFggsuacFYDRJELHQIYL4085-18-99 10:27:00 Test Item Value Reference Range Interpretation Comments Creatinine Lvl (test code = Creatinine 1.52 0.50-1.40 Lvl) [facility] HospitalIxrbdvxYMVGUATUOBDM0918-57-26 10:27:00 Test Item Value Reference Range Interpretation Comments Sodium Lvl (test code = Sodium Lvl) 135 135-145 [facility] HospitalOqawdtdBPPIZEEXYYHT7099-20-53 10:27:00 Test Item Value Reference Range Interpretation Comments Potassium Lvl (test code = Potassium 4.4 3.5-5.1 Lvl) [facility] HospitalSxmxropOLOQJTMGDUIS2952-75-96 10:27:00 Test Item Value Reference Range Interpretation Comments eGFR (test code = eGFR) 55 [facility] NortheastPjljjtnWCATKWPBMS6876-52-73 10:27:00 Test Item Value Reference Range Interpretation Comments Eosinophils (test code = 1.6 See_Comment [A utomated message] The Eosinophils) system which ge nerated this result tra nsmitted reference range : <=4.0. The reference r davey was not used to int erpret this result as normal/abnormal . [facility] NortheastSzuejiuFYLGQFFGCS3496-92-16 10:27:00 Test Item Value Reference Range Interpretation Comments Lymphocytes # (test code = Lymphocytes 3.4 1.0-5.5 #) [facility] NortheastTrrkovyIBAXOJVSGG4040-68-34 10:27:00 Test Item Value Reference Range Interpretation Comments Basophils (test code = 0.3 See_Comment [Aut omated message] The Basophils) system which ge nerated this result tra nsmitted reference range : <=1.0. The reference r davey was not used to int erpret this result as normal/abnormal . [facility] NortheastIdffvpwEQCLCYZELI6362-58-79 10:27:00 Test Item Value Reference Range Interpretation Comments Monocytes # (test code 0.6 See_Comment [Aut omated message] The = Monocytes #) system which generated this result tra nsmitted reference range : <=0.8. The reference r davey was not used to int erpret this result as normal/abnormal . [facility] NortheastOtdssgzTMTTXOAVZW6689-13-94 10:27:00 Test Item Value Reference Range Interpretation Comments Segs-Bands # (test code = Segs-Bands #) 5.3 1.5-8.1 [facility] NortheastQrharftKCKIEMRPMT5122-41-57 10:27:00 Test Item Value Reference Range Interpretation Comments Segs (test code = Segs) 56.3 45.0-75.0 [facility] NortheastVpcqdcsDOHJQBVTOT0185-88-55 10:27:00 Test Item Value Reference Range Interpretation Comments Monocytes (test code = Monocytes) 6.0 2.0-12.0 [facility] NortheastCcpwgepOEEULXJYEC3456-93-15 10:27:00 Test Item Value Reference Range Interpretation Comments Lymphocytes (test code = Lymphocytes) 35.8 20.0-40.0 [facility] NortheastYlslybdIBCDYKAJGA4970-09-96 10:27:00 Test Item Value Reference Range Interpretation Comments Eosinophils # (test code 0.2 See_Comment [A utomated message] The = Eosinophils #) system whic h generated this result tra nsmitted reference range : <=0.5. The reference r davey was not used to int erpret this result as normal/abnormal . [facility] NortheastYwpmlweXRQRSTDBXB8517-15-42 10:27:00 Test Item Value Reference Range Interpretation Comments Platelet (test code = Platelet) 363 133-450 [facility] NortheastWqgzaaxLKATUZNBTL5349-83-85 10:27:00 Test Item Value Reference Range Interpretation Comments MPV (test code = MPV) 6.3 7.4-10.4 [facility] NortheastYmpslraORMAYSQSBW2672-56-14 10:27:00 Test Item Value Reference Range Interpretation Comments MCHC (test code = MCHC) 33.0 32.0-36.0 [facility] NortheastJkjrmrmCYVTDLHZQE9422-69-20 10:27:00 Test Item Value Reference Range Interpretation Comments RDW (test code = RDW) 13.3 11.5-14.5 [facility] NortheastWhaqopbYQKEZSTNWU0315-37-23 10:27:00 Test Item Value Reference Range Interpretation Comments Hct (test code = Hct) 41.9 42.0-54.0 [facility] NortheastWrulumtRZHSILWZNX6228-26-81 10:27:00 Test Item Value Reference Range Interpretation Comments MCV (test code = MCV) 86.1 80.0-94.0 [facility] NortheastCfzdmmpGDENLOFONR4332-80-79 10:27:00 Test Item Value Reference Range Interpretation Comments RBC (test code = RBC) 4.87 4.70-6.10 [facility] NortheastDwpnyxzARHGVWSJLY3727-84-56 10:27:00 Test Item Value Reference Range Interpretation Comments Hgb (test code = Hgb) 13.8 14.0-18.0 [facility] NortheastMrknlzlDSUUGAOZBX3692-22-98 10:27:00 Test Item Value Reference Range Interpretation Comments WBC (test code = WBC) 9.4 3.7-10.4 [facility] NortheastTjodykeQUNAIGSLNT7606-08-34 10:27:00 Test Item Value Reference Range Interpretation Comments MCH (test code = MCH) 28.4 pg 27.0-31.0 [facility]2016-12-21 10:27:00 Test Item Value Reference Range Interpretation Comments Magnesium Lvl (test code = Magnesium 2.0 1.8-2.4 Lvl) [facility] HospitalXhfmxkiTKWWJXAOWFAY7575-09-96 10:27:00 Test Item Value Reference Range Interpretation Comments Chloride Lvl (test code = Chloride Lvl) 103 95-109 [facility] HospitalNobsmhdDCLBOABEDLWQ2701-18-78 10:27:00 Test Item Value Reference Range Interpretation Comments AGAP (test code = AGAP) 8.4 10.0-20.0 [facility] HospitalQzvcebkZUHILHOUQEEK1055-98-77 10:27:00 Test Item Value Reference Range Interpretation Comments Calcium Lvl (test code = Calcium Lvl) 9.0 8.5-10.5 [facility] HospitalFpcoxqbGAJKNGUIVJCC0449-79-95 10:27:00 Test Item Value Reference Range Interpretation Comments CO2 (test code = CO2) 28 24-32 [facility] HospitalSlspltbGTKMHCLSDGHX1829-88-54 10:27:00 Test Item Value Reference Range Interpretation Comments Glucose Lvl (test code = Glucose Lvl) 114 70-99 [facility] HospitalIhlelrmGKLCDTETHNJH6968-17-12 10:27:00 Test Item Value Reference Range Interpretation Comments BUN (test code = BUN) 21 7-22 [facility] HospitalXpjqeggOLQOWOWPHCKE8459-05-69 10:27:00 Test Item Value Reference Range Interpretation Comments Creatinine Lvl (test code = Creatinine 1.52 0.50-1.40 Lvl) [facility] HospitalUeillyzHFWOISPCTXYH1800-79-06 10:27:00 Test Item Value Reference Range Interpretation Comments Sodium Lvl (test code = Sodium Lvl) 135 135-145 [facility] HospitalZuqahxnMSJIKPPVFQQO8255-25-34 10:27:00 Test Item Value Reference Range Interpretation Comments Potassium Lvl (test code = Potassium 4.4 3.5-5.1 Lvl) [facility] HospitalBxuxjljMRTTVUPIXHZK3586-01-86 10:27:00 Test Item Value Reference Range Interpretation Comments eGFR (test code = eGFR) 55 [facility] NortheastGgrasfuRVFADTHOGW3396-16-41 10:27:00 Test Item Value Reference Range Interpretation Comments Eosinophils (test code = 1.6 See_Comment [A utomated message] The Eosinophils) system which ge nerated this result tra nsmitted reference range : <=4.0. The reference r davey was not used to int erpret this result as normal/abnormal . [facility] NortheastAmirextZAWPAXIIRY8552-45-28 10:27:00 Test Item Value Reference Range Interpretation Comments Lymphocytes # (test code = Lymphocytes 3.4 1.0-5.5 #) [facility] NortheastQpvyrngPESXXJOXVH3214-03-31 10:27:00 Test Item Value Reference Range Interpretation Comments Basophils (test code = 0.3 See_Comment [Aut omated message] The Basophils) system which ge nerated this result tra nsmitted reference range : <=1.0. The reference r davey was not used to int erpret this result as normal/abnormal . [facility] NortheastYorjwqnVIQFPKOLTP0452-48-13 10:27:00 Test Item Value Reference Range Interpretation Comments Monocytes # (test code 0.6 See_Comment [Aut omated message] The = Monocytes #) system which generated this result tra nsmitted reference range : <=0.8. The reference r davey was not used to int erpret this result as normal/abnormal . [facility] NortheastFdnphukLNULUPCDPB8589-61-55 10:27:00 Test Item Value Reference Range Interpretation Comments Segs-Bands # (test code = Segs-Bands #) 5.3 1.5-8.1 [facility] NortheastAebmgopYCOIXTKVMD9469-11-86 10:27:00 Test Item Value Reference Range Interpretation Comments Segs (test code = Segs) 56.3 45.0-75.0 [facility] NortheastScuqemiFAUKYVVIKH7575-12-30 10:27:00 Test Item Value Reference Range Interpretation Comments Monocytes (test code = Monocytes) 6.0 2.0-12.0 [facility] NortheastFwqfmupKTLZAMLZBH3275-97-37 10:27:00 Test Item Value Reference Range Interpretation Comments Lymphocytes (test code = Lymphocytes) 35.8 20.0-40.0 [facility] NortheastCyyolafWCQQKAZVRH0570-51-11 10:27:00 Test Item Value Reference Range Interpretation Comments Eosinophils # (test code 0.2 See_Comment [A utomated message] The = Eosinophils #) system whic h generated this result tra nsmitted reference range : <=0.5. The reference r davey was not used to int erpret this result as normal/abnormal . [facility] NortheastSvprkwtCYGXMZGPWC3224-54-47 10:27:00 Test Item Value Reference Range Interpretation Comments Platelet (test code = Platelet) 363 133-450 [facility] NortheastVxnumvyXTKNUIKSPF0373-93-66 10:27:00 Test Item Value Reference Range Interpretation Comments MPV (test code = MPV) 6.3 7.4-10.4 [facility] NortheastOrpamhjXJXGUWYQTT2501-75-07 10:27:00 Test Item Value Reference Range Interpretation Comments MCHC (test code = MCHC) 33.0 32.0-36.0 [facility] NortheastIqeslevQJQHFACWPN7336-21-13 10:27:00 Test Item Value Reference Range Interpretation Comments RDW (test code = RDW) 13.3 11.5-14.5 [facility] NortheastEhcwvkeTMOJAQZYRW4930-76-23 10:27:00 Test Item Value Reference Range Interpretation Comments Hct (test code = Hct) 41.9 42.0-54.0 [facility] NortheastEmawzubVHLFALCKCX1110-42-60 10:27:00 Test Item Value Reference Range Interpretation Comments MCV (test code = MCV) 86.1 80.0-94.0 [facility] NortheastAuslzzoZJAEABGBWN2562-03-34 10:27:00 Test Item Value Reference Range Interpretation Comments RBC (test code = RBC) 4.87 4.70-6.10 [facility] NortheastJigphyqTISCSQNIRU5582-04-91 10:27:00 Test Item Value Reference Range Interpretation Comments Hgb (test code = Hgb) 13.8 14.0-18.0 [facility] NortheastWhdamgePJLUBDYWOD5298-49-82 10:27:00 Test Item Value Reference Range Interpretation Comments WBC (test code = WBC) 9.4 3.7-10.4 [facility] NortheastFindsdoUPJDJXTUZN5154-66-12 10:27:00 Test Item Value Reference Range Interpretation Comments MCH (test code = MCH) 28.4 pg 27.0-31.0 [facility]2016-12-21 10:27:00 Test Item Value Reference Range Interpretation Comments Magnesium Lvl (test code = Magnesium 2.0 1.8-2.4 Lvl) [facility] HospitalQoueukeVKAIXIPLKWHA9520-99-77 10:27:00 Test Item Value Reference Range Interpretation Comments Chloride Lvl (test code = Chloride Lvl) 103 95-109 [facility] HospitalQrriofuAUMXWARVDLMJ8393-44-77 10:27:00 Test Item Value Reference Range Interpretation Comments AGAP (test code = AGAP) 8.4 10.0-20.0 [facility] HospitalJoplujwEUGOZBQJCKRW0452-00-36 10:27:00 Test Item Value Reference Range Interpretation Comments Calcium Lvl (test code = Calcium Lvl) 9.0 8.5-10.5 [facility] HospitalJchhajsIOOKSOFKJZMY6170-24-95 10:27:00 Test Item Value Reference Range Interpretation Comments CO2 (test code = CO2) 28 24-32 [facility] HospitalLiaygvyFLGWWMPTFCDF3374-05-01 10:27:00 Test Item Value Reference Range Interpretation Comments Glucose Lvl (test code = Glucose Lvl) 114 70-99 [facility] HospitalQiuaidhMVFQHZXUWJAH4743-04-62 10:27:00 Test Item Value Reference Range Interpretation Comments BUN (test code = BUN) 21 7-22 [facility] HospitalWjtnwkaRKXYMQUODPAA6852-38-74 10:27:00 Test Item Value Reference Range Interpretation Comments Creatinine Lvl (test code = Creatinine 1.52 0.50-1.40 Lvl) [facility]2016-12-20 11:02:00 Test Item Value Reference Range Interpretation Comments Phosphorus (test code = Phosphorus) 2.4 2.5-4.5 [facility]2016-12-20 11:02:00 Test Item Value Reference Range Interpretation Comments Magnesium Lvl (test code = Magnesium 2.0 1.8-2.4 Lvl) [facility]2016-12-20 11:02:00 Test Item Value Reference Range Interpretation Comments Phosphorus (test code = Phosphorus) 2.4 2.5-4.5 [facility]2016-12-20 11:02:00 Test Item Value Reference Range Interpretation Comments Magnesium Lvl (test code = Magnesium 2.0 1.8-2.4 Lvl) [facility]2016-12-20 11:02:00 Test Item Value Reference Range Interpretation Comments Phosphorus (test code = Phosphorus) 2.4 2.5-4.5 [facility]2016-12-20 11:02:00 Test Item Value Reference Range Interpretation Comments Magnesium Lvl (test code = Magnesium 2.0 1.8-2.4 Lvl) [facility]2016-12-20 11:02:00 Test Item Value Reference Range Interpretation Comments Phosphorus (test code = Phosphorus) 2.4 2.5-4.5 [facility]2016-12-20 11:02:00 Test Item Value Reference Range Interpretation Comments Magnesium Lvl (test code = Magnesium 2.0 1.8-2.4 Lvl) [facility]2016-12-20 11:02:00 Test Item Value Reference Range Interpretation Comments Phosphorus (test code = Phosphorus) 2.4 2.5-4.5 [facility]2016-12-20 11:02:00 Test Item Value Reference Range Interpretation Comments Magnesium Lvl (test code = Magnesium 2.0 1.8-2.4 Lvl) [facility]2016-12-20 11:02:00 Test Item Value Reference Range Interpretation Comments Phosphorus (test code = Phosphorus) 2.4 2.5-4.5 [facility]2016-12-20 11:02:00 Test Item Value Reference Range Interpretation Comments Magnesium Lvl (test code = Magnesium 2.0 1.8-2.4 Lvl) [facility]2016-12-20 11:02:00 Test Item Value Reference Range Interpretation Comments Phosphorus (test code = Phosphorus) 2.4 2.5-4.5 [facility]2016-12-20 11:02:00 Test Item Value Reference Range Interpretation Comments Magnesium Lvl (test code = Magnesium 2.0 1.8-2.4 Lvl) [facility]2016-12-20 11:02:00 Test Item Value Reference Range Interpretation Comments Phosphorus (test code = Phosphorus) 2.4 2.5-4.5 [facility]2016-12-20 11:02:00 Test Item Value Reference Range Interpretation Comments Magnesium Lvl (test code = Magnesium 2.0 1.8-2.4 Lvl) [facility]2016-12-19 22:31:00 Test Item Value Reference Range Interpretation Comments Hgb A1C (test code = Hgb A1C) 6.9 [facility] 22:31:00 Test Item Value Reference Range Interpretation Comments Hgb A1C (test code = Hgb A1C) 6.9 [facility] AGOPJSARB5470-58-16 22:31:00 Test Item Value Reference Range Interpretation Comments Hgb A1C (test code = Hgb A1C) 6.9 [facility] CBKOLWQOE2182-78-01 22:31:00 Test Item Value Reference Range Interpretation Comments Hgb A1C (test code = Hgb A1C) 6.9 [facility] KGSUIKYAO3883-18-37 22:31:00 Test Item Value Reference Range Interpretation Comments Hgb A1C (test code = Hgb A1C) 6.9 [facility] EHJMBEUAQ5418-54-08 22:31:00 Test Item Value Reference Range Interpretation Comments Hgb A1C (test code = Hgb A1C) 6.9 [facility] HJLIZCLJB9269-86-21 22:31:00 Test Item Value Reference Range Interpretation Comments Hgb A1C (test code = Hgb A1C) 6.9 [facility] HTHMOCHMU4869-65-24 22:31:00 Test Item Value Reference Range Interpretation Comments Hgb A1C (test code = Hgb A1C) 6.9 [facility] BrookeannCARDIAC KTWAQAG6207-23-55 11:10:00 Test Item Value Reference Range Interpretation Comments proBNP (test code = 40 See_Comment [Automa rafia message] The proBNP) system which ge nerated this result tra nsmitted reference range : <=125. The reference r davey was not used to int erpret this result as chidi l/abnormal. [facility] GopddhxYVGZCFFWAF2274-03-57 11:10:00 Test Item Value Reference Range Interpretation Comments Etoh (%) (test code = Etoh (%)) no gt [facility] CmijpdfNWRQRYZWBK2029-01-37 11:10:00 Test Item Value Reference Range Interpretation Comments Ethanol Lvl (test code = Ethanol Lvl) no gt [facility] HermannCARDIAC XHVAQAL7547-49-78 11:10:00 Test Item Value Reference Range Interpretation Comments proBNP (test code = 40 See_Comment [Automa rafia message] The proBNP) system which ge nerated this result tra nsmitted reference range : <=125. The reference r davey was not used to int erpret this result as chidi l/abnormal. [facility] AxqrbhzPHNYFBMARZ7280-83-72 11:10:00 Test Item Value Reference Range Interpretation Comments Etoh (%) (test code = Etoh (%)) no gt [facility] RdzakkgMIZOKBYTXS7765-53-62 11:10:00 Test Item Value Reference Range Interpretation Comments Ethanol Lvl (test code = Ethanol Lvl) no gt [facility] X3M GamesannCARDIAC CFPLHFN5311-85-65 11:10:00 Test Item Value Reference Range Interpretation Comments proBNP (test code = 40 See_Comment [Automa rafia message] The proBNP) system which ge nerated this result tra nsmitted reference range : <=125. The reference r davey was not used to int erpret this result as chidi l/abnormal. [facility] SohqtwlILNQUDYGNF9895-58-73 11:10:00 Test Item Value Reference Range Interpretation Comments Etoh (%) (test code = Etoh (%)) no gt [facility] IyqktloJFQSFYVNGH4346-56-48 11:10:00 Test Item Value Reference Range Interpretation Comments Ethanol Lvl (test code = Ethanol Lvl) no [facility] QlikaDIAC LSEGRPY5287-09-94 11:10:00 Test Item Value Reference Range Interpretation Comments proBNP (test code = 40 See_Comment [Automa rafia message] The proBNP) system which ge nerated this result tra nsmitted reference range : <=125. The reference r davey was not used to int erpret this result as chidi l/abnormal. [facility] SpabtaxXCAEBARTXV7273-74-13 11:10:00 Test Item Value Reference Range Interpretation Comments Etoh (%) (test code = Etoh (%)) no gt [facility] RzlvrwjCYUZFWCISH8006-86-05 11:10:00 Test Item Value Reference Range Interpretation Comments Ethanol Lvl (test code = Ethanol Lvl) no gt [facility] UISWBUN0953-42-60 11:10:00 Test Item Value Reference Range Interpretation Comments proBNP (test code = 40 See_Comment [Automa rafia message] The proBNP) system which ge nerated this result tra nsmitted reference range : <=125. The reference r davey was not used to int erpret this result as chidi l/abnormal. [facility] KudahcgBYYGCJJJIN4321-32-66 11:10:00 Test Item Value Reference Range Interpretation Comments Etoh (%) (test code = Etoh (%)) no gt [facility] DoyftbvIZXSKCHWIT6068-56-46 11:10:00 Test Item Value Reference Range Interpretation Comments Ethanol Lvl (test code = Ethanol Lvl) no gt [facility]annCARDIAC VNKJUWB6382-00-33 11:10:00 Test Item Value Reference Range Interpretation Comments proBNP (test code = 40 See_Comment [Automa rafia message] The proBNP) system which ge nerated this result tra nsmitted reference range : <=125. The reference r davey was not used to int erpret this result as chidi l/abnormal. [facility] WfcattpTNDIFKZUVH2899-99-47 11:10:00 Test Item Value Reference Range Interpretation Comments Etoh (%) (test code = Etoh (%)) no gt [facility] NhugsdsIYDQCPKPMZ0074-72-74 11:10:00 Test Item Value Reference Range Interpretation Comments Ethanol Lvl (test code = Ethanol Lvl) no gt [facility]annCARDIAC DPTEJPH2882-54-01 11:10:00 Test Item Value Reference Range Interpretation Comments proBNP (test code = 40 See_Comment [Automa rafia message] The proBNP) system which ge nerated this result tra nsmitted reference range : <=125. The reference r davey was not used to int erpret this result as chidi l/abnormal. [facility] RqqycmrQBBVHIGKNO9723-25-68 11:10:00 Test Item Value Reference Range Interpretation Comments Etoh (%) (test code = Etoh (%)) no gt [facility] KgzbijoIYYDSGDUZJ0528-37-21 11:10:00 Test Item Value Reference Range Interpretation Comments Ethanol Lvl (test code = Ethanol Lvl) no gt [facility]annCARDIAC PRUBYAJ4892-82-42 11:10:00 Test Item Value Reference Range Interpretation Comments proBNP (test code = 40 See_Comment [Automa rafia message] The proBNP) system which ge nerated this result tra nsmitted reference range : <=125. The reference r davey was not used to int erpret this result as chidi l/abnormal. [facility] WlbxyysUDYXFMZMOC5405-92-95 11:10:00 Test Item Value Reference Range Interpretation Comments Etoh (%) (test code = Etoh (%)) no gt [facility] WxyyeeoRJWRDYBAYX3757-56-98 11:10:00 Test Item Value Reference Range Interpretation Comments Ethanol Lvl (test code = Ethanol Lvl) no gt [facility]annCARDIAC [id number] 11:00:00 Test Item Value Reference Range Interpretation Comments CK MB (test code = CK MB) 1.2 0.5-3.6 [facility]ann[facility]ARD[facility] GDFBMTE4959-38-44 11:00:00 Test Item Value Reference Range Interpretation Comments Troponin-I (test code no gt See_Comment [Auto mated message] The = Troponin-I) system which g enerated this result transmit rafia reference range : <=0.40. The reference r davey was not used to interpr et this result as chidi l/abnormal. [facility]annCARDIAC [id number] 11:00:00 Test Item Value Reference Range Interpretation Comments Total CK (test code = Total CK) 86 12-191 [facility]ann[facility] [id number] 11:00:00 Test Item Value Reference Range Interpretation Comments CK MB Index (test 1.4 See_Comment [Automate d message] The code = CK MB Index) system w [employer] generated this result transmit rafia reference range : <=2.5. The reference range was not used to interpr et this result as chidi l/abnormal. [facility]oundMtabcujEQGAKJFSGZ5889-11-42 11:00:00 Test Item Value Reference Range Interpretation Comments PTT (test code = PTT) 26.0 s 22.9-35.8 [facility]oundYmwnvhoUXWPEAJBAD4872-16-60 11:00:00 Test Item Value Reference Range Interpretation Comments PT (test code = PT) 13.0 s 12.0-14.7 [facility]oundSwsqejuPOBYDWYVXA8213-02-36 11:00:00 Test Item Value Reference Range Interpretation Comments INR (test code = INR) 0.96 0.85-1.17 [facility]oundSocial [employer]2016-12-19 11:00:00 Test Item Value Reference Range Interpretation Comments CK MB (test code = CK MB) 1.2 0.5-3.6 [facility] MoundMedstoryPlasticellPMYOKNH3546-36-75 11:00:00 Test Item Value Reference Range Interpretation Comments Troponin-I (test code no gt See_Comment [Auto mated message] The = Troponin-I) system which g enerated this result transmit rafia reference range : <=0.40. The reference r davey was not used to interpr et this result as chidi l/abnormal. [facility]oundSocial [employer]2016-12-19 11:00:00 Test Item Value Reference Range Interpretation Comments Total CK (test code = Total CK) 86 12-191 [facility]oundSocial [facility]2016-12-19 11:00:00 Test Item Value Reference Range Interpretation Comments CK MB Index (test 1.4 See_Comment [Automate d message] The code = CK MB Index) system w [employer] generated this result transmit rafia reference range : <=2.5. The reference range was not used to interpr et this result as chidi l/abnormal. [facility] MoundSvprqujQFXWCYIEAU3441-84-54 11:00:00 Test Item Value Reference Range Interpretation Comments PTT (test code = PTT) 26.0 s 22.9-35.8 [facility] MoundCpiizulHENBIHMTED7022-21-20 11:00:00 Test Item Value Reference Range Interpretation Comments PT (test code = PT) 13.0 s 12.0-14.7 [facility]ennialZblutrkTGZPNNLAKA9572-65-17 11:00:00 Test Item Value Reference Range Interpretation Comments INR (test code = INR) 0.96 0.85-1.17 [facility] [id number] 11:00:00 Test Item Value Reference Range Interpretation Comments CK MB (test code = CK MB) 1.2 0.5-3.6 [facility] [id number] 11:00:00 Test Item Value Reference Range Interpretation Comments Troponin-I (test code no gt See_Comment [Auto mated message] The = Troponin-I) system which g enerated this result transmit rafia reference range : <=0.40. The reference r davey was not used to interpr et this result as chidi l/abnormal. [facility] [id number] 11:00:00 Test Item Value Reference Range Interpretation Comments Total CK (test code = Total CK) 86 12-191 [facility] TOACLBA4909-97-84 11:00:00 Test Item Value Reference Range Interpretation Comments CK MB Index (test 1.4 See_Comment [Automate d message] The code = CK MB Index) system w [facility] generated this result transmit rafia reference range : <=2.5. The reference range was not used to interpr et this result as chidi l/abnormal. [facility] CentennialBshjluhKXJBRFWDEF7636-71-04 11:00:00 Test Item Value Reference Range Interpretation Comments PTT (test code = PTT) 26.0 s 22.9-35.8 [facility] CentennialGlrygzxNRJVPRFUBC2046-82-90 11:00:00 Test Item Value Reference Range Interpretation Comments PT (test code = PT) 13.0 s 12.0-14.7 [facility]oundGclhvsxETYXMFPTUT3892-02-49 11:00:00 Test Item Value Reference Range Interpretation Comments INR (test code = INR) 0.96 0.85-1.17 [facility] ANENFMV3494-00-20 11:00:00 Test Item Value Reference Range Interpretation Comments CK MB (test code = CK MB) 1.2 0.5-3.6 [facility] FZUASMN7746-67-56 11:00:00 Test Item Value Reference Range Interpretation Comments Troponin-I (test code no gt See_Comment [Auto mated message] The = Troponin-I) system which g enerated this result transmit rafia reference range : <=0.40. The reference r davey was not used to interpr et this result as chidi l/abnormal. [facility] [employer]2016-12-19 11:00:00 Test Item Value Reference Range Interpretation Comments Total CK (test code = Total CK) 86 191 [facility]Social [employer]2016-12-19 11:00:00 Test Item Value Reference Range Interpretation Comments CK MB Index (test 1.4 See_Comment [Automate d message] The code = CK MB Index) system w [facility] generated this result transmit rafia reference range : <=2.5. The reference range was not used to interpr et this result as chidi l/abnormal. [facility] MoundLtiakjgBISVMEWTOY0716-35-68 11:00:00 Test Item Value Reference Range Interpretation Comments PTT (test code = PTT) 26.0 s 22.9-35.8 [facility] MoundGtbdonwJLAORYFSQZ6239-41-94 11:00:00 Test Item Value Reference Range Interpretation Comments PT (test code = PT) 13.0 s 12.0-14.7 [facility] MoundYdqkcooCTQKTHCDZV9729-82-43 11:00:00 Test Item Value Reference Range Interpretation Comments INR (test code = INR) 0.96 0.85-1.17 [facility] [employer]2016-12-19 11:00:00 Test Item Value Reference Range Interpretation Comments CK MB (test code = CK MB) 1.2 0.5-3.6 [facility] [employer]2016-12-19 11:00:00 Test Item Value Reference Range Interpretation Comments Troponin-I (test code no gt See_Comment [Auto mated message] The = Troponin-I) system which g enerated this result transmit rafia reference range : <=0.40. The reference r davey was not used to interpr et this result as chidi l/abnormal. [facility] [employer]2016-12-19 11:00:00 Test Item Value Reference Range Interpretation Comments Total CK (test code = Total CK) 86 191 [facility]oundSocial [employer]2016-12-19 11:00:00 Test Item Value Reference Range Interpretation Comments CK MB Index (test 1.4 See_Comment [Automate d message] The code = CK MB Index) system w [employer] generated this result transmit rafia reference range : <=2.5. The reference range was not used to interpr et this result as chidi l/abnormal. [facility] MoundAfpyfqiZMFIZUBIMV5617-08-63 11:00:00 Test Item Value Reference Range Interpretation Comments PTT (test code = PTT) 26.0 s 22.9-35.8 [facility] MoundQebmtslHVORSEPKZY7058-25-15 11:00:00 Test Item Value Reference Range Interpretation Comments PT (test code = PT) 13.0 s 12.0-14.7 [facility] MoundTkxufzfZLPZJTXEFJ0588-96-45 11:00:00 Test Item Value Reference Range Interpretation Comments INR (test code = INR) 0.96 0.85-1.17 [facility]oundSocial [employer]2016-12-19 11:00:00 Test Item Value Reference Range Interpretation Comments CK MB (test code = CK MB) 1.2 0.5-3.6 [facility] CentennialMerklePlasticellKPCJIMD8952-20-21 11:00:00 Test Item Value Reference Range Interpretation Comments Troponin-I (test code no gt See_Comment [Auto mated message] The = Troponin-I) system which g enerated this result transmit rafia reference range : <=0.40. The reference r davey was not used to interpr et this result as chidi l/abnormal. [facility] MoundMedstoryTHE MEDICAL CENTER [id number] 11:00:00 Test Item Value Reference Range Interpretation Comments Total CK (test code = Total CK) 86 12-191 [facility] CentennialMerklePlasticellJZOAQDA9131-64-20 11:00:00 Test Item Value Reference Range Interpretation Comments CK MB Index (test 1.4 See_Comment [Automate d message] The code = CK MB Index) system w [facility] generated this result transmit rafia reference range : <=2.5. The reference range was not used to interpr et this result as chidi l/abnormal. [facility] MoundIceikshBALCDSONRC6054-72-10 11:00:00 Test Item Value Reference Range Interpretation Comments PTT (test code = PTT) 26.0 s 22.9-35.8 [facility] MoundRuravrcBLBSXVCMIF6965-32-60 11:00:00 Test Item Value Reference Range Interpretation Comments PT (test code = PT) 13.0 s 12.0-14.7 [facility] MoundItowkytOVBADEZARH9720-17-97 11:00:00 Test Item Value Reference Range Interpretation Comments INR (test code = INR) 0.96 0.85-1.17 [facility]ennialMerkleTHE MEDICAL CENTER [id number] 11:00:00 Test Item Value Reference Range Interpretation Comments CK MB (test code = CK MB) 1.2 0.5-3.6 [facility] RBNZWTQ0707-76-02 11:00:00 Test Item Value Reference Range Interpretation Comments Troponin-I (test code no gt See_Comment [Auto mated message] The = Troponin-I) system which g enerated this result transmit rafia reference range : <=0.40. The reference r davey was not used to interpr et this result as chidi l/abnormal. [facility] UWHCXXE9467-23-22 11:00:00 Test Item Value Reference Range Interpretation Comments Total CK (test code = Total CK) 86 12-191 [facility] JUMSQGC0337-66-37 11:00:00 Test Item Value Reference Range Interpretation Comments CK MB Index (test 1.4 See_Comment [Automate d message] The code = CK MB Index) system w [facility] generated this result transmit rafia reference range : <=2.5. The reference range was not used to interpr et this result as chidi l/abnormal. [facility] CentennialDfiznvuFTAOOSCTEQ4362-67-73 11:00:00 Test Item Value Reference Range Interpretation Comments PTT (test code = PTT) 26.0 s 22.9-35.8 [facility] MoundEcobtwvHCNXFSSGRR4616-26-19 11:00:00 Test Item Value Reference Range Interpretation Comments PT (test code = PT) 13.0 s 12.0-14.7 [facility] MoundKhkwzboBSCQCJLYNA8388-38-27 11:00:00 Test Item Value Reference Range Interpretation Comments INR (test code = INR) 0.96 0.85-1.17 [facility]ennialMerkleTHE MEDICAL CENTER [id number] 11:00:00 Test Item Value Reference Range Interpretation Comments CK MB (test code = CK MB) 1.2 0.5-3.6 [facility]ennialMerkleTHE MEDICAL CENTER [id number] 11:00:00 Test Item Value Reference Range Interpretation Comments Troponin-I (test code no gt See_Comment [Auto mated message] The = Troponin-I) system which g enerated this result transmit rafia reference range : <=0.40. The reference r davey was not used to interpr et this result as chidi l/abnormal. [facility] UBOJZPI5410-96-66 11:00:00 Test Item Value Reference Range Interpretation Comments Total CK (test code = Total CK) 86 12-191 [facility] MKVAOFH5754-32-20 11:00:00 Test Item Value Reference Range Interpretation Comments CK MB Index (test 1.4 See_Comment [Automate d message] The code = CK MB Index) system w [facility] generated this result transmit rafia reference range : <=2.5. The reference range was not used to interpr et this result as chidi l/abnormal. [facility]VvttjdnIFJZMDDUWT3753-24-[facility] 11:00:00 Test Item Value Reference Range Interpretation Comments PTT (test code = PTT) 26.0 s 22.9-35.8 [facility] RegionZsdperhMCXXCQIQYJ2726-64-25 11:00:00 Test Item Value Reference Range Interpretation Comments PT (test code = PT) 13.0 s 12.0-14.7 [facility] RegionTrgiwuwYXDMJGFCKS6304-20-22 11:00:00 Test Item Value Reference Range Interpretation Comments INR (test code = INR) 0.96 0.85-1.17 [facility] MoundJiangyin Haobo Science and TechnologyCHEM [id number] 21:20:00 Test Item Value Reference Range Interpretation Comments Lipase Lvl (test code = Lipase Lvl) 220 73-393 [facility]UxsbilbSYQXEYLZNPUU7638-65-44 21:20:00 Test Item Value Reference Range Interpretation Comments AGAP (test code = AGAP) 12.1 10.0-20.0 [facility]QxpqmtcVULYXZYGPFVG2336-53-36 21:20:00 Test Item Value Reference Range Interpretation Comments Globulin (test code = Globulin) 4.0 2.0-4.0 [facility] HospitalAxnuwniDJVGHHERCYQR3849-60-74 21:20:00 Test Item Value Reference Range Interpretation Comments A/G Ratio (test code = A/G Ratio) 0.8 0.7-1.6 [facility]awKzkpyxcUPYIXCXBPMLD8483-29-96 21:20:00 Test Item Value Reference Range Interpretation Comments B/C Ratio (test code = B/C Ratio) 12 6-25 [facility] HospitalBhyuchbVOCXKBTDZSOD2851-42-61 21:20:00 Test Item Value Reference Range Interpretation Comments Bili Total (test code = Bili Total) 0.5 0.2-1.3 [facility] HospitalVqhbfilYCHLQJOAOBCB9523-22-28 21:20:00 Test Item Value Reference Range Interpretation Comments Alk Phos (test code = Alk Phos) 133 39-136 [facility] HospitalKdglpznPROSNPRGCACJ9426-30-98 21:20:00 Test Item Value Reference Range Interpretation Comments AST (test code = AST) 19 See_Comment [Auto mated message] The system which ge nerated this result transmit rafia reference range : <=37. The reference range was not used to interpr et this result as chidi l/abnormal. [facility] HospitalMsadwbbMSFFWHFPQAEJ8164-37-49 21:20:00 Test Item Value Reference Range Interpretation Comments eGFR (test code = eGFR) 54 [facility] HospitalHjghnfeRKEBUERKIGRW5927-36-47 21:20:00 Test Item Value Reference Range Interpretation Comments Albumin Lvl (test code = Albumin Lvl) 3.4 3.5-5.0 [facility] HospitalQvxzxvzZMJYZSUZENBE7464-30-49 21:20:00 Test Item Value Reference Range Interpretation Comments ALT (test code = ALT) 44 See_Comment [Auto mated message] The system which ge nerated this result transmit rafia reference range : <=65. The reference range was not used to interpr et this result as chidi l/abnormal. [facility] HospitalQdlfzgjODCLDBGVZMRX7835-79-90 21:20:00 Test Item Value Reference Range Interpretation Comments Calcium Lvl (test code = Calcium Lvl) 8.8 8.5-10.5 [facility] HospitalTxowkjoAADMZDHKEOKO3983-26-60 21:20:00 Test Item Value Reference Range Interpretation Comments CO2 (test code = CO2) 23 24-32 [facility] HospitalLnfxuckRLLDGSVZMFRD7999-85-49 21:20:00 Test Item Value Reference Range Interpretation Comments Total Protein (test code = Total 7.4 6.4-8.4 Protein) [facility] HospitalDdoqgnhROADUHBEFZAJ7219-98-63 21:20:00 Test Item Value Reference Range Interpretation Comments Sodium Lvl (test code = Sodium Lvl) 139 135-145 [facility] HospitalWxyfezcMVBGCEVLEFSE9761-45-38 21:20:00 Test Item Value Reference Range Interpretation Comments Potassium Lvl (test code = Potassium 4.1 3.5-5.1 Lvl) [facility] HospitalEkxtntoTJHWRQMZZYRV1876-86-61 21:20:00 Test Item Value Reference Range Interpretation Comments Chloride Lvl (test code = Chloride Lvl) 108 95-109 [facility] HospitalKpsnxwlRDPJVDVNRANZ6987-52-03 21:20:00 Test Item Value Reference Range Interpretation Comments Glucose Lvl (test code = Glucose Lvl) 187 70-99 [facility] HospitalKztyyqlPWIBZLOJUPLL0232-48-16 21:20:00 Test Item Value Reference Range Interpretation Comments BUN (test code = BUN) 18 7-22 [facility] HospitalAvwtyooFAAUASONNWEV6359-78-84 21:20:00 Test Item Value Reference Range Interpretation Comments Creatinine Lvl (test code = Creatinine 1.56 0.50-1.40 Lvl) [facility]JtrgrotDYCEEWFLSN9305-04-20 21:20:00 Test Item Value Reference Range Interpretation Comments Eosinophils # (test code 0.3 See_Comment [A utomated message] The = Eosinophils #) system whic h generated this result tra nsmitted reference range : <=0.5. The reference r davey was not used to int erpret this result as normal/abnormal . [facility]WrsqsmdWAARZUMHIO8982-48-43 21:20:00 Test Item Value Reference Range Interpretation Comments Segs-Bands # (test code = Segs-Bands #) 7.8 1.5-8.1 [facility]AsqmkfjFMLAKPUTND8574-24-92 21:20:00 Test Item Value Reference Range Interpretation Comments Lymphocytes # (test code = Lymphocytes 1.4 1.0-5.5 #) [facility] NortheastZrxqqozRWXILVXTBU7103-55-53 21:20:00 Test Item Value Reference Range Interpretation Comments Monocytes # (test code 0.7 See_Comment [Aut omated message] The = Monocytes #) system which generated this result tra nsmitted reference range : <=0.8. The reference r davey was not used to int erpret this result as normal/abnormal . [facility] NortheastUazpmtlVVHQUBNUPV0358-58-82 21:20:00 Test Item Value Reference Range Interpretation Comments Segs (test code = Segs) 76.7 45.0-75.0 [facility] NortheastNlmdsqvBQGMYTLZLR5962-78-68 21:20:00 Test Item Value Reference Range Interpretation Comments Lymphocytes (test code = Lymphocytes) 13.4 20.0-40.0 [facility] NortheastFpsmovcDWPFNHJAHS8104-11-26 21:20:00 Test Item Value Reference Range Interpretation Comments Monocytes (test code = Monocytes) 7.2 2.0-12.0 [facility] NortheastFxxoczmGSHUYNNPLR1329-63-33 21:20:00 Test Item Value Reference Range Interpretation Comments Eosinophils (test code = 2.5 See_Comment [A utomated message] The Eosinophils) system which ge nerated this result tra nsmitted reference range : <=4.0. The reference r davey was not used to int erpret this result as normal/abnormal . [facility] NortheastWhblcerHGTCCXVKSQ2297-83-97 21:20:00 Test Item Value Reference Range Interpretation Comments Basophils (test code = 0.2 See_Comment [Aut omated message] The Basophils) system which ge nerated this result tra nsmitted reference range : <=1.0. The reference r davey was not used to int erpret this result as normal/abnormal . [facility] NortheastOfkdvqaMGWUXXLPAP4702-04-75 21:20:00 Test Item Value Reference Range Interpretation Comments MCHC (test code = MCHC) 32.9 32.0-36.0 [facility] NortheastRouahggRDQFKDIALX8989-31-81 21:20:00 Test Item Value Reference Range Interpretation Comments RDW (test code = RDW) 13.9 11.5-14.5 [facility] NortheastIsexxwhDUICRYUEOT2009-45-85 21:20:00 Test Item Value Reference Range Interpretation Comments MCH (test code = MCH) 29.7 pg 27.0-31.0 [facility]jjovuvETVHFCEOMC1011-81-72 21:20:00 Test Item Value Reference Range Interpretation Comments MPV (test code = MPV) 6.9 7.4-10.4 [facility] NortheastAtrolmoJOJFDAONTO7325-93-13 21:20:00 Test Item Value Reference Range Interpretation Comments Platelet (test code = Platelet) 286 133-450 [facility]GkbbbnsAKGDHGZWTB5314-21-94 21:20:00 Test Item Value Reference Range Interpretation Comments WBC (test code = WBC) 10.1 3.7-10.4 [facility] NortheastQwpcrrdATRKACOPFF5803-29-48 21:20:00 Test Item Value Reference Range Interpretation Comments RBC (test code = RBC) 5.49 4.70-6.10 [facility] NortheastHrpeuzeTAIRYQAORP3452-85-65 21:20:00 Test Item Value Reference Range Interpretation Comments MCV (test code = MCV) 90.3 80.0-94.0 [facility] NortheastKfmwmqoPNVXGGXHDE3424-88-74 21:20:00 Test Item Value Reference Range Interpretation Comments Hct (test code = Hct) 49.6 42.0-54.0 [facility] NortheastIzanmgyBEXSECGUZV7776-54-05 21:20:00 Test Item Value Reference Range Interpretation Comments Hgb (test code = Hgb) 16.3 14.0-18.0 [facility]2016-06-22 21:20:00 Test Item Value Reference Range Interpretation Comments Lipase Lvl (test code = Lipase Lvl) 220 73-393 [facility] HospitalHotwfljELWKWSYIZOHB5532-80-72 21:20:00 Test Item Value Reference Range Interpretation Comments AGAP (test code = AGAP) 12.1 10.0-20.0 [facility] HospitalYyyoyrhQEYJWFAVCQRW8165-75-99 21:20:00 Test Item Value Reference Range Interpretation Comments Globulin (test code = Globulin) 4.0 2.0-4.0 [facility] HospitalUpplfamZEESIOYOQQWZ0183-30-88 21:20:00 Test Item Value Reference Range Interpretation Comments A/G Ratio (test code = A/G Ratio) 0.8 0.7-1.6 [facility] HospitalDdqidjxXDJRNCGMRKML1772-36-26 21:20:00 Test Item Value Reference Range Interpretation Comments B/C Ratio (test code = B/C Ratio) 12 6-25 [facility] HospitalAwbyuaxOPZDRMDKVHTL5565-25-66 21:20:00 Test Item Value Reference Range Interpretation Comments Bili Total (test code = Bili Total) 0.5 0.2-1.3 [facility] HospitalAhfhazhKODTBTYSHNPW7629-44-83 21:20:00 Test Item Value Reference Range Interpretation Comments Alk Phos (test code = Alk Phos) 133 39-136 [facility] HospitalQcyvfsjTIAPOXEHXEZZ2040-94-75 21:20:00 Test Item Value Reference Range Interpretation Comments AST (test code = AST) 19 See_Comment [Auto mated message] The system which ge nerated this result transmit rafia reference range : <=37. The reference range was not used to interpr et this result as chidi l/abnormal. [facility] HospitalPafcydyIWEIHYDCVFPX9625-97-92 21:20:00 Test Item Value Reference Range Interpretation Comments eGFR (test code = eGFR) 54 [facility] HospitalRsywzrjUBVLQCIFDTEM3307-95-41 21:20:00 Test Item Value Reference Range Interpretation Comments Albumin Lvl (test code = Albumin Lvl) 3.4 3.5-5.0 [facility] HospitalJykshuhVUQLFFWLRVGS9821-17-49 21:20:00 Test Item Value Reference Range Interpretation Comments ALT (test code = ALT) 44 See_Comment [Auto mated message] The system which ge nerated this result transmit rafia reference range : <=65. The reference range was not used to interpr et this result as chidi l/abnormal. [facility] HospitalRnidvmlCRBLINOROWMP3693-06-25 21:20:00 Test Item Value Reference Range Interpretation Comments Calcium Lvl (test code = Calcium Lvl) 8.8 8.5-10.5 [facility] HospitalGtczcbfDVOEYJISXRLT0167-43-08 21:20:00 Test Item Value Reference Range Interpretation Comments CO2 (test code = CO2) 23 24-32 [facility] HospitalVybaxraFUKZDUEMGIZM1996-47-24 21:20:00 Test Item Value Reference Range Interpretation Comments Total Protein (test code = Total 7.4 6.4-8.4 Protein) [facility] HospitalQuatqqkKNSEXCBSIRSM4282-18-00 21:20:00 Test Item Value Reference Range Interpretation Comments Sodium Lvl (test code = Sodium Lvl) 139 135-145 [facility] HospitalKkrmjioPKBDTDABPXEE6520-91-32 21:20:00 Test Item Value Reference Range Interpretation Comments Potassium Lvl (test code = Potassium 4.1 3.5-5.1 Lvl) [facility] HospitalEtbcfaaLFGAQRWLVSWD8835-67-57 21:20:00 Test Item Value Reference Range Interpretation Comments Chloride Lvl (test code = Chloride Lvl) 108 95-109 [facility] HospitalPezupemNGCWZOIBJHQO1975-58-42 21:20:00 Test Item Value Reference Range Interpretation Comments Glucose Lvl (test code = Glucose Lvl) 187 70-99 [facility] HospitalZayohhiNQSOAOAAHHPM3856-71-20 21:20:00 Test Item Value Reference Range Interpretation Comments BUN (test code = BUN) 18 7-22 [facility] HospitalPjnhskzTIVQWCCMIPYQ4714-52-88 21:20:00 Test Item Value Reference Range Interpretation Comments Creatinine Lvl (test code = Creatinine 1.56 0.50-1.40 Lvl) [facility]VjqzkceVNYCYFDWZK8227-97-82 21:20:00 Test Item Value Reference Range Interpretation Comments Eosinophils # (test code 0.3 See_Comment [A utomated message] The = Eosinophils #) system whic h generated this result tra nsmitted reference range : <=0.5. The reference r davey was not used to int erpret this result as normal/abnormal . [facility] NortheastBgyramjZXAXWTKNHI3629-26-58 21:20:00 Test Item Value Reference Range Interpretation Comments Segs-Bands # (test code = Segs-Bands #) 7.8 1.5-8.1 [facility] NortheastJmpddybXZZQIDPGQY5801-23-14 21:20:00 Test Item Value Reference Range Interpretation Comments Lymphocytes # (test code = Lymphocytes 1.4 1.0-5.5 #) [facility] NortheastHribnaiBKYKXBGMWP4726-63-68 21:20:00 Test Item Value Reference Range Interpretation Comments Monocytes # (test code 0.7 See_Comment [Aut omated message] The = Monocytes #) system which generated this result tra nsmitted reference range : <=0.8. The reference r davey was not used to int erpret this result as normal/abnormal . [facility] NortheastZqsqpneRLLMSBJMYU5384-27-91 21:20:00 Test Item Value Reference Range Interpretation Comments Segs (test code = Segs) 76.7 45.0-75.0 [facility]VmsgbfnVJSZINMGYA5785-49-98 21:20:00 Test Item Value Reference Range Interpretation Comments Lymphocytes (test code = Lymphocytes) 13.4 20.0-40.0 [facility] NortheastIhlebekZYKBBHWJLF8114-16-06 21:20:00 Test Item Value Reference Range Interpretation Comments Monocytes (test code = Monocytes) 7.2 2.0-12.0 [facility] NortheastIexlepdSEWDURVOGW5712-07-21 21:20:00 Test Item Value Reference Range Interpretation Comments Eosinophils (test code = 2.5 See_Comment [A utomated message] The Eosinophils) system which ge nerated this result tra nsmitted reference range : <=4.0. The reference r davey was not used to int erpret this result as normal/abnormal . [facility] NortheastNwzlbryBXQUUAYBGW1388-96-97 21:20:00 Test Item Value Reference Range Interpretation Comments Basophils (test code = 0.2 See_Comment [Aut omated message] The Basophils) system which ge nerated this result tra nsmitted reference range : <=1.0. The reference r davey was not used to int erpret this result as normal/abnormal . [facility] NortheastJqvfzagMPXNBWMHXZ0346-54-38 21:20:00 Test Item Value Reference Range Interpretation Comments MCHC (test code = MCHC) 32.9 32.0-36.0 [facility] NortheastFktfqbaFYMJIZSCWW2193-31-39 21:20:00 Test Item Value Reference Range Interpretation Comments RDW (test code = RDW) 13.9 11.5-14.5 [facility] NortheastLhwlmhbYEBIWWOBTZ8766-43-59 21:20:00 Test Item Value Reference Range Interpretation Comments MCH (test code = MCH) 29.7 pg 27.0-31.0 [facility] NortheastTavutguUKXDNJKRRG7525-89-90 21:20:00 Test Item Value Reference Range Interpretation Comments MPV (test code = MPV) 6.9 7.4-10.4 [facility] NortheastDxdqxhlAMSODSQPRL0185-00-73 21:20:00 Test Item Value Reference Range Interpretation Comments Platelet (test code = Platelet) 286 133-450 [facility] NortheastSftukzcRBVUGHKNQP0735-25-92 21:20:00 Test Item Value Reference Range Interpretation Comments WBC (test code = WBC) 10.1 3.7-10.4 [facility] NortheastPmcytsdPPCCVCDSFP3140-19-78 21:20:00 Test Item Value Reference Range Interpretation Comments RBC (test code = RBC) 5.49 4.70-6.10 [facility] NortheastAyjmwgkBLAQHQYWEA1871-99-03 21:20:00 Test Item Value Reference Range Interpretation Comments MCV (test code = MCV) 90.3 80.0-94.0 [facility] NortheastNqhjlwbUFZZQKEUYT3747-30-42 21:20:00 Test Item Value Reference Range Interpretation Comments Hct (test code = Hct) 49.6 42.0-54.0 [facility] NortheastTgtrbnkXDJHTHYBOH8403-31-51 21:20:00 Test Item Value Reference Range Interpretation Comments Hgb (test code = Hgb) 16.3 14.0-18.0 [facility]2016-06-22 21:20:00 Test Item Value Reference Range Interpretation Comments Lipase Lvl (test code = Lipase Lvl) 220 73-393 [facility] HospitalVwelfnkZDAJEYELBWIV0900-65-46 21:20:00 Test Item Value Reference Range Interpretation Comments AGAP (test code = AGAP) 12.1 10.0-20.0 [facility] HospitalWguwxkkHHSHJDJOKTXL0067-66-25 21:20:00 Test Item Value Reference Range Interpretation Comments Globulin (test code = Globulin) 4.0 2.0-4.0 [facility] HospitalQimuyaoPRMCJXNYWPEO4598-96-97 21:20:00 Test Item Value Reference Range Interpretation Comments A/G Ratio (test code = A/G Ratio) 0.8 0.7-1.6 [facility] HospitalKxmfbyaICMHSLGXWYPL7807-75-35 21:20:00 Test Item Value Reference Range Interpretation Comments B/C Ratio (test code = B/C Ratio) 12 6-25 [facility] HospitalZugsoqhJCWXFWHXPJIX1678-13-86 21:20:00 Test Item Value Reference Range Interpretation Comments Bili Total (test code = Bili Total) 0.5 0.2-1.3 [facility] HospitalCackzmwXTRLVYUYTIVT2803-89-28 21:20:00 Test Item Value Reference Range Interpretation Comments Alk Phos (test code = Alk Phos) 133 39-136 [facility] HospitalArfblzlJETPUUPIQSGA4650-08-16 21:20:00 Test Item Value Reference Range Interpretation Comments AST (test code = AST) 19 See_Comment [Auto mated message] The system which ge nerated this result transmit rafia reference range : <=37. The reference range was not used to interpr et this result as chidi l/abnormal. [facility] HospitalWjkwygnUODTDVAYDIAF8625-71-67 21:20:00 Test Item Value Reference Range Interpretation Comments eGFR (test code = eGFR) 54 [facility] HospitalTrscacgUKKYRAOAGXMS9185-40-82 21:20:00 Test Item Value Reference Range Interpretation Comments Albumin Lvl (test code = Albumin Lvl) 3.4 3.5-5.0 [facility] HospitalBmxovjfJLVDLFASDCIK0501-98-33 21:20:00 Test Item Value Reference Range Interpretation Comments ALT (test code = ALT) 44 See_Comment [Auto mated message] The system which ge nerated this result transmit rafia reference range : <=65. The reference range was not used to interpr et this result as chidi l/abnormal. [place] 893196-06-22 21:20:00 Test Item Value Reference Range Interpretation Comments Calcium Lvl (test code = Calcium Lvl) 8.8 8.5-10.5 [facility] HospitalZrjgtkgIUFUAVOHWHTC2684-90-23 21:20:00 Test Item Value Reference Range Interpretation Comments CO2 (test code = CO2) 23 24-32 [facility] HospitalOwqlfksGUKJXYBAOAOE3862-13-32 21:20:00 Test Item Value Reference Range Interpretation Comments Total Protein (test code = Total 7.4 6.4-8.4 Protein) [facility] HospitalYhlwqmdZIOCRIIVKFXM9020-96-37 21:20:00 Test Item Value Reference Range Interpretation Comments Sodium Lvl (test code = Sodium Lvl) 139 135-145 [facility] HospitalFzcisuePNTDHNMIYONB2399-84-13 21:20:00 Test Item Value Reference Range Interpretation Comments Potassium Lvl (test code = Potassium 4.1 3.5-5.1 Lvl) [facility] HospitalNybvcdyTEQSEYIJEZGB3266-68-27 21:20:00 Test Item Value Reference Range Interpretation Comments Chloride Lvl (test code = Chloride Lvl) 108 95-109 [facility] HospitalXtrfhpxLLSZSWDHOGVW5067-42-43 21:20:00 Test Item Value Reference Range Interpretation Comments Glucose Lvl (test code = Glucose Lvl) 187 70-99 [facility] HospitalQzpnzxiFYVVPPOZCHXW0071-86-49 21:20:00 Test Item Value Reference Range Interpretation Comments BUN (test code = BUN) 18 7-22 [facility] HospitalQhzoosxJJJIJDDREINJ1286-53-87 21:20:00 Test Item Value Reference Range Interpretation Comments Creatinine Lvl (test code = Creatinine 1.56 0.50-1.40 Lvl) [facility]XvvdsptKTLEQOILXS6562-37-90 21:20:00 Test Item Value Reference Range Interpretation Comments Eosinophils # (test code 0.3 See_Comment [A utomated message] The = Eosinophils #) system whic h generated this result tra nsmitted reference range : <=0.5. The reference r davey was not used to int erpret this result as normal/abnormal . [facility] NortheastYzykrwgDNBDRBFYIZ0071-25-26 21:20:00 Test Item Value Reference Range Interpretation Comments Segs-Bands # (test code = Segs-Bands #) 7.8 1.5-8.1 [facility] NortheastXtdimhdJZVQZKIDOX4978-76-84 21:20:00 Test Item Value Reference Range Interpretation Comments Lymphocytes # (test code = Lymphocytes 1.4 1.0-5.5 #) [facility] NortheastUyvurciIGWMVXBAJD1107-32-04 21:20:00 Test Item Value Reference Range Interpretation Comments Monocytes # (test code 0.7 See_Comment [Aut omated message] The = Monocytes #) system which generated this result tra nsmitted reference range : <=0.8. The reference r davey was not used to int erpret this result as normal/abnormal . [facility] NortheastLlqzsxrXSKPXRPGHH8002-21-76 21:20:00 Test Item Value Reference Range Interpretation Comments Segs (test code = Segs) 76.7 45.0-75.0 [facility] NortheastGcilhgsDZXUKMMWVA9418-15-56 21:20:00 Test Item Value Reference Range Interpretation Comments Lymphocytes (test code = Lymphocytes) 13.4 20.0-40.0 [facility] NortheastBljlkgeOLHZAPPHGF0637-76-55 21:20:00 Test Item Value Reference Range Interpretation Comments Monocytes (test code = Monocytes) 7.2 2.0-12.0 [facility] NortheastChbwftyZHMPSECTOV7643-09-80 21:20:00 Test Item Value Reference Range Interpretation Comments Eosinophils (test code = 2.5 See_Comment [A utomated message] The Eosinophils) system which ge nerated this result tra nsmitted reference range : <=4.0. The reference r davey was not used to int erpret this result as normal/abnormal . [facility] NortheastMtxooftFOVJVQSJLX0409-83-48 21:20:00 Test Item Value Reference Range Interpretation Comments Basophils (test code = 0.2 See_Comment [Aut omated message] The Basophils) system which ge nerated this result tra nsmitted reference range : <=1.0. The reference r davey was not used to int erpret this result as normal/abnormal . [facility] NortheastSydhsbwRBHJRDFIBP7108-60-25 21:20:00 Test Item Value Reference Range Interpretation Comments MCHC (test code = MCHC) 32.9 32.0-36.0 [facility] NortheastRkcpwprJBDFZNEAYK9346-01-86 21:20:00 Test Item Value Reference Range Interpretation Comments RDW (test code = RDW) 13.9 11.5-14.5 [facility] NortheastYppilepSEJLFGDPBI0644-49-21 21:20:00 Test Item Value Reference Range Interpretation Comments MCH (test code = MCH) 29.7 pg 27.0-31.0 [facility]JetnwxsXVKMQEAZSC4589-04-94 21:20:00 Test Item Value Reference Range Interpretation Comments MPV (test code = MPV) 6.9 7.4-10.4 [facility]avnzheDMLOHWVMGA3926-[facility] 21:20:00 Test Item Value Reference Range Interpretation Comments Platelet (test code = Platelet) 286 133-450 [facility]ennialJcioudnFDWFLGBQCT1670-68-94 21:20:00 Test Item Value Reference Range Interpretation Comments WBC (test code = WBC) 10.1 3.7-10.4 [facility]IumbdzvHQRPADUALR8810-24-05 21:20:00 Test Item Value Reference Range Interpretation Comments RBC (test code = RBC) 5.49 4.70-6.10 [facility] NortheastHjucfamFQVIXXQLTZ5759-18-52 21:20:00 Test Item Value Reference Range Interpretation Comments MCV (test code = MCV) 90.3 80.0-94.0 [facility]ennialUfpsuxvCAHWCMOJNI2562-83-51 21:20:00 Test Item Value Reference Range Interpretation Comments Hct (test code = Hct) 49.6 42.0-54.0 [facility]ennialShjcafqCXDZUVBLVH2014-25-90 21:20:00 Test Item Value Reference Range Interpretation Comments Hgb (test code = Hgb) 16.3 14.0-18.0 [facility]2016-06-22 21:20:00 Test Item Value Reference Range Interpretation Comments Lipase Lvl (test code = Lipase Lvl) 220 73-393 [facility]QeewztkQCGAELFLLTGY7462-99-50 21:20:00 Test Item Value Reference Range Interpretation Comments AGAP (test code = AGAP) 12.1 10.0-20.0 [facility] SoutheastNuehnolPDNBTJILQVZI9607-53-49 21:20:00 Test Item Value Reference Range Interpretation Comments Globulin (test code = Globulin) 4.0 2.0-4.0 [facility] HospitalWdpbufqBOYYZWJHRQEE1503-48-48 21:20:00 Test Item Value Reference Range Interpretation Comments A/G Ratio (test code = A/G Ratio) 0.8 0.7-1.6 [facility]yniayyEBUTKCZDCJRT4061-92-94 21:20:00 Test Item Value Reference Range Interpretation Comments B/C Ratio (test code = B/C Ratio) 12 6-25 [facility] HospitalHfielpoNOCLHNKHJATP2694-88-80 21:20:00 Test Item Value Reference Range Interpretation Comments Bili Total (test code = Bili Total) 0.5 0.2-1.3 [facility] HospitalIicadgqDPQRPRLSLQJZ3585-60-66 21:20:00 Test Item Value Reference Range Interpretation Comments Alk Phos (test code = Alk Phos) 133 39-136 [facility] HospitalBztoxglAGCMRYBLMITX6016-95-46 21:20:00 Test Item Value Reference Range Interpretation Comments AST (test code = AST) 19 See_Comment [Auto mated message] The system which ge nerated this result transmit rafia reference range : <=37. The reference range was not used to interpr et this result as chidi l/abnormal. [facility] HospitalBrvduspGWZCELALBHGH3154-56-33 21:20:00 Test Item Value Reference Range Interpretation Comments eGFR (test code = eGFR) 54 [facility] HospitalOerlcdtSPCUPJCTJTNE8602-10-23 21:20:00 Test Item Value Reference Range Interpretation Comments Albumin Lvl (test code = Albumin Lvl) 3.4 3.5-5.0 [facility] HospitalDrmgdtgHIQZXDXZDQRF5101-31-68 21:20:00 Test Item Value Reference Range Interpretation Comments ALT (test code = ALT) 44 See_Comment [Auto mated message] The system which ge nerated this result transmit rafia reference range : <=65. The reference range was not used to interpr et this result as chidi l/abnormal. [facility] HospitalSxmbijfKWAKULJLBVJB2558-42-83 21:20:00 Test Item Value Reference Range Interpretation Comments Calcium Lvl (test code = Calcium Lvl) 8.8 8.5-10.5 [facility] HospitalCsilgxtQHDIDBTUPUCU9093-88-75 21:20:00 Test Item Value Reference Range Interpretation Comments CO2 (test code = CO2) 23 24-32 [facility] HospitalMycdywqARFPIRVGQVYD6935-57-62 21:20:00 Test Item Value Reference Range Interpretation Comments Total Protein (test code = Total 7.4 6.4-8.4 Protein) [facility] HospitalAmdiiszZFYRWAFPYZTQ7663-22-57 21:20:00 Test Item Value Reference Range Interpretation Comments Sodium Lvl (test code = Sodium Lvl) 139 135-145 [facility] HospitalRmslweeHIYBRSPVJMVF6894-77-17 21:20:00 Test Item Value Reference Range Interpretation Comments Potassium Lvl (test code = Potassium 4.1 3.5-5.1 Lvl) [facility] HospitalNjyauwwWPEPQMFNMXSM0567-63-53 21:20:00 Test Item Value Reference Range Interpretation Comments Chloride Lvl (test code = Chloride Lvl) 108 95-109 [facility] HospitalZnzzqsyNOOQUPAFKKYL1498-19-28 21:20:00 Test Item Value Reference Range Interpretation Comments Glucose Lvl (test code = Glucose Lvl) 187 70-99 [facility] HospitalLvyhabdAYVUNGVNYPEO3952-44-80 21:20:00 Test Item Value Reference Range Interpretation Comments BUN (test code = BUN) 18 7-22 [facility] HospitalXrrduwjKIQSVHWSKISW0520-34-30 21:20:00 Test Item Value Reference Range Interpretation Comments Creatinine Lvl (test code = Creatinine 1.56 0.50-1.40 Lvl) [facility]CffqijnRVRTMQIOPN8231-38-04 21:20:00 Test Item Value Reference Range Interpretation Comments Eosinophils # (test code 0.3 See_Comment [A utomated message] The = Eosinophils #) system whic h generated this result tra nsmitted reference range : <=0.5. The reference r davey was not used to int erpret this result as normal/abnormal . [facility] NortheastOnxwqxmZAQFXLXHEJ5400-09-40 21:20:00 Test Item Value Reference Range Interpretation Comments Segs-Bands # (test code = Segs-Bands #) 7.8 1.5-8.1 [facility] NortheastTqntpuqMSQXWMSVWA2662-05-16 21:20:00 Test Item Value Reference Range Interpretation Comments Lymphocytes # (test code = Lymphocytes 1.4 1.0-5.5 #) [facility] NortheastTbukvfwBNWRJFCUID6400-02-88 21:20:00 Test Item Value Reference Range Interpretation Comments Monocytes # (test code 0.7 See_Comment [Aut omated message] The = Monocytes #) system which generated this result tra nsmitted reference range : <=0.8. The reference r davey was not used to int erpret this result as normal/abnormal . [facility] NortheastHdigcurNBWGVLBQJV3604-77-80 21:20:00 Test Item Value Reference Range Interpretation Comments Segs (test code = Segs) 76.7 45.0-75.0 [facility] NortheastYqqsxwmZOXALLYJRV2484-76-15 21:20:00 Test Item Value Reference Range Interpretation Comments Lymphocytes (test code = Lymphocytes) 13.4 20.0-40.0 [facility] NortheastQebcxbuSIVCDOCDTF6162-47-57 21:20:00 Test Item Value Reference Range Interpretation Comments Monocytes (test code = Monocytes) 7.2 2.0-12.0 [facility] NortheastFlvewmuLGEOGZUHAK7832-29-15 21:20:00 Test Item Value Reference Range Interpretation Comments Eosinophils (test code = 2.5 See_Comment [A utomated message] The Eosinophils) system which ge nerated this result tra nsmitted reference range : <=4.0. The reference r davey was not used to int erpret this result as normal/abnormal . [facility] NortheastNicudanJEAMTFAFSI9534-65-61 21:20:00 Test Item Value Reference Range Interpretation Comments Basophils (test code = 0.2 See_Comment [Aut omated message] The Basophils) system which ge nerated this result tra nsmitted reference range : <=1.0. The reference r davey was not used to int erpret this result as normal/abnormal . [facility] NortheastDoapxwpTDZCDITYDI6958-40-21 21:20:00 Test Item Value Reference Range Interpretation Comments MCHC (test code = MCHC) 32.9 32.0-36.0 [facility] NortheastIhlpnvaMDVRRZJLYU3811-18-18 21:20:00 Test Item Value Reference Range Interpretation Comments RDW (test code = RDW) 13.9 11.5-14.5 [facility] NortheastSiqzzgqHNQJEBTNDG7796-44-54 21:20:00 Test Item Value Reference Range Interpretation Comments MCH (test code = MCH) 29.7 pg 27.0-31.0 [facility] NortheastZohkglbNXSJOTGLWO4253-16-92 21:20:00 Test Item Value Reference Range Interpretation Comments MPV (test code = MPV) 6.9 7.4-10.4 [facility] NortheastAmhisbcWVGMCPVBWJ6422-50-96 21:20:00 Test Item Value Reference Range Interpretation Comments Platelet (test code = Platelet) 286 133-450 [facility] NortheastFbluhdbZYVWEBZDLG5281-44-15 21:20:00 Test Item Value Reference Range Interpretation Comments WBC (test code = WBC) 10.1 3.7-10.4 [facility] NortheastNfrkmvcOSOQPKVZMY0847-95-18 21:20:00 Test Item Value Reference Range Interpretation Comments RBC (test code = RBC) 5.49 4.70-6.10 [facility] NortheastYgknnoiRUXRJQZQLD6763-10-21 21:20:00 Test Item Value Reference Range Interpretation Comments MCV (test code = MCV) 90.3 80.0-94.0 [facility] [facility]ppatxsFSTUJURYNX0831-43-59 21:20:00 Test Item Value Reference Range Interpretation Comments Hct (test code = Hct) 49.6 42.0-54.0 [facility]XfnoionUQPJKKDPCC6389-78-17 21:20:00 Test Item Value Reference Range Interpretation Comments Hgb (test code = Hgb) 16.3 14.0-18.0 [facility]2016-06-22 21:20:00 Test Item Value Reference Range Interpretation Comments Lipase Lvl (test code = Lipase Lvl) 220 73-393 [facility] HospitalDoeirigVLXLLZYCSENX3643-35-91 21:20:00 Test Item Value Reference Range Interpretation Comments AGAP (test code = AGAP) 12.1 10.0-20.0 [facility] HospitalTpznrefVLJAKUIKLEAC5750-20-36 21:20:00 Test Item Value Reference Range Interpretation Comments Globulin (test code = Globulin) 4.0 2.0-4.0 [facility] HospitalZofnhwnKQXIULGBAUTN1516-71-59 21:20:00 Test Item Value Reference Range Interpretation Comments A/G Ratio (test code = A/G Ratio) 0.8 0.7-1.6 [facility] HospitalIyliunaRUVEQTKBYBJX3393-57-66 21:20:00 Test Item Value Reference Range Interpretation Comments B/C Ratio (test code = B/C Ratio) 12 6-25 [facility] HospitalWugyandLIJFNDNPXCTL8517-53-48 21:20:00 Test Item Value Reference Range Interpretation Comments Bili Total (test code = Bili Total) 0.5 0.2-1.3 [facility] HospitalAecssicIRVOIKQGVLLL4480-28-51 21:20:00 Test Item Value Reference Range Interpretation Comments Alk Phos (test code = Alk Phos) 133 39-136 [facility] HospitalXhznicpHUXBOMVWXIWS1903-45-50 21:20:00 Test Item Value Reference Range Interpretation Comments AST (test code = AST) 19 See_Comment [Auto mated message] The system which ge nerated this result transmit rafia reference range : <=37. The reference range was not used to interpr et this result as chidi l/abnormal. [facility] HospitalUmguvqgAAIQIYCFRNVI3464-03-25 21:20:00 Test Item Value Reference Range Interpretation Comments eGFR (test code = eGFR) 54 [facility] HospitalFdapniwBPUAPYBSSIGD3823-42-00 21:20:00 Test Item Value Reference Range Interpretation Comments Albumin Lvl (test code = Albumin Lvl) 3.4 3.5-5.0 [facility] HospitalQobvpewLDMAQOMEHFCM6523-49-03 21:20:00 Test Item Value Reference Range Interpretation Comments ALT (test code = ALT) 44 See_Comment [Auto mated message] The system which ge nerated this result transmit rafia reference range : <=65. The reference range was not used to interpr et this result as chidi l/abnormal. [facility] HospitalFlmikbcADCDXJUQDXKI9760-98-43 21:20:00 Test Item Value Reference Range Interpretation Comments Calcium Lvl (test code = Calcium Lvl) 8.8 8.5-10.5 [facility] HospitalJkiijhbDEFZZNDJQLIB6091-32-01 21:20:00 Test Item Value Reference Range Interpretation Comments CO2 (test code = CO2) 23 24-32 [facility] HospitalQabyqitHMVWUNHKNIZA7996-38-00 21:20:00 Test Item Value Reference Range Interpretation Comments Total Protein (test code = Total 7.4 6.4-8.4 Protein) [facility] HospitalQfdgimyIMHORGVYIAYH9717-78-67 21:20:00 Test Item Value Reference Range Interpretation Comments Sodium Lvl (test code = Sodium Lvl) 139 135-145 [facility] HospitalEhrulbkMNJJZKDVYIZP3888-26-27 21:20:00 Test Item Value Reference Range Interpretation Comments Potassium Lvl (test code = Potassium 4.1 3.5-5.1 Lvl) [facility] HospitalIhqcxunHGCDTVXVWLNH4708-52-31 21:20:00 Test Item Value Reference Range Interpretation Comments Chloride Lvl (test code = Chloride Lvl) 108 95-109 [facility] HospitalYhurxooDQGOBCWUECZZ1508-95-74 21:20:00 Test Item Value Reference Range Interpretation Comments Glucose Lvl (test code = Glucose Lvl) 187 70-99 [facility] HospitalXfnxbkrLVBPFFNANZWA2386-93-61 21:20:00 Test Item Value Reference Range Interpretation Comments BUN (test code = BUN) 18 7-22 [facility] HospitalCfqatbzWBQCTYEZYJAP1305-16-63 21:20:00 Test Item Value Reference Range Interpretation Comments Creatinine Lvl (test code = Creatinine 1.56 0.50-1.40 Lvl) [facility]JtzunqjBLRISTNXST1623-98-34 21:20:00 Test Item Value Reference Range Interpretation Comments Eosinophils # (test code 0.3 See_Comment [A utomated message] The = Eosinophils #) system whic h generated this result tra nsmitted reference range : <=0.5. The reference r davey was not used to int erpret this result as normal/abnormal . [facility] NortheastMdmdtyrMOEXVDUKKI8831-97-46 21:20:00 Test Item Value Reference Range Interpretation Comments Segs-Bands # (test code = Segs-Bands #) 7.8 1.5-8.1 [facility] NortheastMwwflkmGLPXKJTZCO4736-24-86 21:20:00 Test Item Value Reference Range Interpretation Comments Lymphocytes # (test code = Lymphocytes 1.4 1.0-5.5 #) [facility] NortheastAbejisgVUZENIJNVZ4680-40-55 21:20:00 Test Item Value Reference Range Interpretation Comments Monocytes # (test code 0.7 See_Comment [Aut omated message] The = Monocytes #) system which generated this result tra nsmitted reference range : <=0.8. The reference r davey was not used to int erpret this result as normal/abnormal . [facility] NortheastOyqmmljNQCBXAHFDZ1870-97-21 21:20:00 Test Item Value Reference Range Interpretation Comments Segs (test code = Segs) 76.7 45.0-75.0 [facility] NortheastVaqomobCNJOYUFGXA8779-65-36 21:20:00 Test Item Value Reference Range Interpretation Comments Lymphocytes (test code = Lymphocytes) 13.4 20.0-40.0 [facility] NortheastCwomwnpEGFGISYVUH0718-66-36 21:20:00 Test Item Value Reference Range Interpretation Comments Monocytes (test code = Monocytes) 7.2 2.0-12.0 [facility] NortheastCniygovKFMJWYQMSP7133-47-00 21:20:00 Test Item Value Reference Range Interpretation Comments Eosinophils (test code = 2.5 See_Comment [A utomated message] The Eosinophils) system which ge nerated this result tra nsmitted reference range : <=4.0. The reference r davey was not used to int erpret this result as normal/abnormal . [facility] NortheastMintmpdGCEIMGKRSD9148-29-36 21:20:00 Test Item Value Reference Range Interpretation Comments Basophils (test code = 0.2 See_Comment [Aut omated message] The Basophils) system which ge nerated this result tra nsmitted reference range : <=1.0. The reference r davey was not used to int erpret this result as normal/abnormal . [facility] NortheastMgfmihiQPQNWJKYPV1607-37-46 21:20:00 Test Item Value Reference Range Interpretation Comments MCHC (test code = MCHC) 32.9 32.0-36.0 [facility]XcugvdaIHKVMUCDXK0600-37-52 21:20:00 Test Item Value Reference Range Interpretation Comments RDW (test code = RDW) 13.9 11.5-14.5 [facility] NortheastJdappblKZTUNWCDFZ9286-44-12 21:20:00 Test Item Value Reference Range Interpretation Comments MCH (test code = MCH) 29.7 pg 27.0-31.0 [facility] NortheastFdiudqoYVBKQIXLNZ8778-84-55 21:20:00 Test Item Value Reference Range Interpretation Comments MPV (test code = MPV) 6.9 7.4-10.4 [facility] NortheastXxypscbIOMBXMYWWR6374-19-68 21:20:00 Test Item Value Reference Range Interpretation Comments Platelet (test code = Platelet) 286 133-450 [facility] NortheastViljqstSDZHFLWQBM1932-04-11 21:20:00 Test Item Value Reference Range Interpretation Comments WBC (test code = WBC) 10.1 3.7-10.4 [facility] NortheastLdrzugxTMNNDFKYEL6101-54-26 21:20:00 Test Item Value Reference Range Interpretation Comments RBC (test code = RBC) 5.49 4.70-6.10 [facility] NortheastTpauqbpSGJVBSNUHB8963-77-15 21:20:00 Test Item Value Reference Range Interpretation Comments MCV (test code = MCV) 90.3 80.0-94.0 [facility] NortheastOadovboKRZAPWVIBE8393-44-24 21:20:00 Test Item Value Reference Range Interpretation Comments Hct (test code = Hct) 49.6 42.0-54.0 [facility]CjqnxceEQHJYQVNNE2891-32-28 21:20:00 Test Item Value Reference Range Interpretation Comments Hgb (test code = Hgb) 16.3 14.0-18.0 [facility]2016-06-22 21:20:00 Test Item Value Reference Range Interpretation Comments Lipase Lvl (test code = Lipase Lvl) 220 -393 [facility] HospitalVgsepygNPCZCNRPQSZI2410-22-67 21:20:00 Test Item Value Reference Range Interpretation Comments AGAP (test code = AGAP) 12.1 10.0-20.0 [facility] HospitalGnuagzvWJYWDIUBUICG1146-17-27 21:20:00 Test Item Value Reference Range Interpretation Comments Globulin (test code = Globulin) 4.0 2.0-4.0 [facility] HospitalHqypfqrKDJDNEOPHODG8798-33-96 21:20:00 Test Item Value Reference Range Interpretation Comments A/G Ratio (test code = A/G Ratio) 0.8 0.7-1.6 [facility] HospitalRmobtkyUTRTIQOEIYPU4060-65-50 21:20:00 Test Item Value Reference Range Interpretation Comments B/C Ratio (test code = B/C Ratio) 12 6-25 [facility] HospitalAyvepgnAEHWXVTFDWCF6325-72-61 21:20:00 Test Item Value Reference Range Interpretation Comments Bili Total (test code = Bili Total) 0.5 0.2-1.3 [facility] HospitalMnlbcwrXPPUOSOBNCQR6854-34-00 21:20:00 Test Item Value Reference Range Interpretation Comments Alk Phos (test code = Alk Phos) 133 39-136 [facility] HospitalTzfwnfqWXJKYYCMZCKX5998-73-81 21:20:00 Test Item Value Reference Range Interpretation Comments AST (test code = AST) 19 See_Comment [Auto mated message] The system which ge nerated this result transmit rafia reference range : <=37. The reference range was not used to interpr et this result as chidi l/abnormal. [facility] HospitalEvnuwdjOWOERCNIYIXH5637-59-45 21:20:00 Test Item Value Reference Range Interpretation Comments eGFR (test code = eGFR) 54 [facility] HospitalNxyasytDALVZFOWFMRQ5696-68-46 21:20:00 Test Item Value Reference Range Interpretation Comments Albumin Lvl (test code = Albumin Lvl) 3.4 3.5-5.0 [facility] HospitalJgntwtwUBRZVBBCVWAA2796-09-33 21:20:00 Test Item Value Reference Range Interpretation Comments ALT (test code = ALT) 44 See_Comment [Auto mated message] The system which ge nerated this result transmit rafia reference range : <=65. The reference range was not used to interpr et this result as chidi l/abnormal. [facility] HospitalTgdzlcvZUHVAQDGSHJS1000-96-99 21:20:00 Test Item Value Reference Range Interpretation Comments Calcium Lvl (test code = Calcium Lvl) 8.8 8.5-10.5 [facility] HospitalRidmgwcKBBTNOPQIOKK9421-78-86 21:20:00 Test Item Value Reference Range Interpretation Comments CO2 (test code = CO2) 23 24-32 [facility] HospitalTqsznuvOANCNSVQMSBI4117-00-76 21:20:00 Test Item Value Reference Range Interpretation Comments Total Protein (test code = Total 7.4 6.4-8.4 Protein) [facility] HospitalKgvojxpDOLXRSWQECQH0571-94-62 21:20:00 Test Item Value Reference Range Interpretation Comments Sodium Lvl (test code = Sodium Lvl) 139 135-145 [facility] HospitalAkipqvyPYBQMLUJNQPR5730-04-25 21:20:00 Test Item Value Reference Range Interpretation Comments Potassium Lvl (test code = Potassium 4.1 3.5-5.1 Lvl) [facility] HospitalPtcepxuJCLAHWJWOMQI7163-33-23 21:20:00 Test Item Value Reference Range Interpretation Comments Chloride Lvl (test code = Chloride Lvl) 108 95-109 [facility] HospitalVidbzrxLFGGYYTOKTSJ5540-60-10 21:20:00 Test Item Value Reference Range Interpretation Comments Glucose Lvl (test code = Glucose Lvl) 187 70-99 [facility] HospitalQdnlkhvUODFQXFJIQQE4800-64-29 21:20:00 Test Item Value Reference Range Interpretation Comments BUN (test code = BUN) 18 7-22 [facility] HospitalHnoroedQUYTMHKPSZOC8123-36-00 21:20:00 Test Item Value Reference Range Interpretation Comments Creatinine Lvl (test code = Creatinine 1.56 0.50-1.40 Lvl) [facility] NortheastVnkquywUZNNNNUIHP5906-75-45 21:20:00 Test Item Value Reference Range Interpretation Comments Eosinophils # (test code 0.3 See_Comment [A utomated message] The = Eosinophils #) system whic h generated this result tra nsmitted reference range : <=0.5. The reference r davey was not used to int erpret this result as normal/abnormal . [facility] NortheastSorvjezGKOYZRTUJZ1700-52-81 21:20:00 Test Item Value Reference Range Interpretation Comments Segs-Bands # (test code = Segs-Bands #) 7.8 1.5-8.1 [facility] NortheastXkecrmbQIYFXEBYXE1111-24-86 21:20:00 Test Item Value Reference Range Interpretation Comments Lymphocytes # (test code = Lymphocytes 1.4 1.0-5.5 #) [facility] NortheastYqgcapqWPFDBZZMRS9760-23-04 21:20:00 Test Item Value Reference Range Interpretation Comments Monocytes # (test code 0.7 See_Comment [Aut omated message] The = Monocytes #) system which generated this result tra nsmitted reference range : <=0.8. The reference r davey was not used to int erpret this result as normal/abnormal . [facility] NortheastUvfwqxrFHZBBNPEIQ3527-69-48 21:20:00 Test Item Value Reference Range Interpretation Comments Segs (test code = Segs) 76.7 45.0-75.0 [facility] NortheastSxmubgkPJSXOUGVUW1853-03-09 21:20:00 Test Item Value Reference Range Interpretation Comments Lymphocytes (test code = Lymphocytes) 13.4 20.0-40.0 [facility] NortheastDrajnkhJAJXVLMTXM3846-93-32 21:20:00 Test Item Value Reference Range Interpretation Comments Monocytes (test code = Monocytes) 7.2 2.0-12.0 [facility] NortheastIxmhqpgBIMASICXLP1232-21-30 21:20:00 Test Item Value Reference Range Interpretation Comments Eosinophils (test code = 2.5 See_Comment [A utomated message] The Eosinophils) system which ge nerated this result tra nsmitted reference range : <=4.0. The reference r davey was not used to int erpret this result as normal/abnormal . [facility] NortheastImjziimJOUASGOVFH1073-60-19 21:20:00 Test Item Value Reference Range Interpretation Comments Basophils (test code = 0.2 See_Comment [Aut omated message] The Basophils) system which ge nerated this result tra nsmitted reference range : <=1.0. The reference r davey was not used to int erpret this result as normal/abnormal . [facility] NortheastCufjbqaTJENUIMQIN8769-15-29 21:20:00 Test Item Value Reference Range Interpretation Comments MCHC (test code = MCHC) 32.9 32.0-36.0 [facility] NortheastXdvwcdwZDZYMMFUCT4395-30-90 21:20:00 Test Item Value Reference Range Interpretation Comments RDW (test code = RDW) 13.9 11.5-14.5 [facility] NortheastEsdertqEDUKSXRGVD7667-31-97 21:20:00 Test Item Value Reference Range Interpretation Comments MCH (test code = MCH) 29.7 pg 27.0-31.0 [facility]LettesuLHAZVMQBEO6137-33-13 21:20:00 Test Item Value Reference Range Interpretation Comments MPV (test code = MPV) 6.9 7.4-10.4 [facility]oundOsknrcuOXUTKTNNDY9593-51-99 21:20:00 Test Item Value Reference Range Interpretation Comments Platelet (test code = Platelet) 286 133-450 [facility]oundIsruhdvLWPRBNQPKG3874-01-70 21:20:00 Test Item Value Reference Range Interpretation Comments WBC (test code = WBC) 10.1 3.7-10.4 [facility]EpnojnhYWJPFRNMQL7878-76-69 21:20:00 Test Item Value Reference Range Interpretation Comments RBC (test code = RBC) 5.49 4.70-6.10 [facility]ennialErrfiueFXDXAZRUDC9255-33-79 21:20:00 Test Item Value Reference Range Interpretation Comments MCV (test code = MCV) 90.3 80.0-94.0 [facility]oundHixitinTBYMDZWLBB9794-65-40 21:20:00 Test Item Value Reference Range Interpretation Comments Hct (test code = Hct) 49.6 42.0-54.0 [facility]oundNqvacnfBHKPWZTNWL8957-31-38 21:20:00 Test Item Value Reference Range Interpretation Comments Hgb (test code = Hgb) 16.3 14.0-18.0 [facility] PWHAI9634-62-88 21:20:00 Test Item Value Reference Range Interpretation Comments Lipase Lvl (test code = Lipase Lvl) 220 73-393 [facility]oundFjzpaziSCNSQITJJRDB9740-66-04 21:20:00 Test Item Value Reference Range Interpretation Comments AGAP (test code = AGAP) 12.1 10.0-20.0 [facility]oundVbbjdanWMEFUDURVEKF4502-44-02 21:20:00 Test Item Value Reference Range Interpretation Comments Globulin (test code = Globulin) 4.0 2.0-4.0 [facility]oundKpgieizLJCRNNWASAKD2213-52-49 21:20:00 Test Item Value Reference Range Interpretation Comments A/G Ratio (test code = A/G Ratio) 0.8 0.7-1.6 [facility]oundMtjymgmIXDSRZMYPMNN2514-95-25 21:20:00 Test Item Value Reference Range Interpretation Comments B/C Ratio (test code = B/C Ratio) 12 6-25 [facility] HospitalMqmmfrfRHESCBVYQPHT4856-84-79 21:20:00 Test Item Value Reference Range Interpretation Comments Bili Total (test code = Bili Total) 0.5 0.2-1.3 [facility] HospitalRubmqkyCOPTEDFHMRHS9937-68-23 21:20:00 Test Item Value Reference Range Interpretation Comments Alk Phos (test code = Alk Phos) 133 39-136 [facility] HospitalObmnuahOMIMILESNHPT7914-23-55 21:20:00 Test Item Value Reference Range Interpretation Comments AST (test code = AST) 19 See_Comment [Auto mated message] The system which ge nerated this result transmit rafia reference range : <=37. The reference range was not used to interpr et this result as chidi l/abnormal. [facility] HospitalWantlpfZXQTOAQBYITE2419-34-95 21:20:00 Test Item Value Reference Range Interpretation Comments eGFR (test code = eGFR) 54 [facility] HospitalEgdjkhjEJFLYVHNLUPU1213-83-57 21:20:00 Test Item Value Reference Range Interpretation Comments Albumin Lvl (test code = Albumin Lvl) 3.4 3.5-5.0 [facility] HospitalGesoxxdUBDYGIDROFJS9786-23-00 21:20:00 Test Item Value Reference Range Interpretation Comments ALT (test code = ALT) 44 See_Comment [Auto mated message] The system which ge nerated this result transmit rafia reference range : <=65. The reference range was not used to interpr et this result as chidi l/abnormal. [facility] HospitalDmkgssrGNAWRFWSQJVT9254-10-37 21:20:00 Test Item Value Reference Range Interpretation Comments Calcium Lvl (test code = Calcium Lvl) 8.8 8.5-10.5 [facility] HospitalUaqlzbiXMFTYQNUZEFH8274-12-01 21:20:00 Test Item Value Reference Range Interpretation Comments CO2 (test code = CO2) 23 24-32 [facility] HospitalRubtduzDZAWCIKDZREY1512-46-24 21:20:00 Test Item Value Reference Range Interpretation Comments Total Protein (test code = Total 7.4 6.4-8.4 Protein) [facility] HospitalUtswkgvNNCQTOSTALIA3502-69-68 21:20:00 Test Item Value Reference Range Interpretation Comments Sodium Lvl (test code = Sodium Lvl) 139 135-145 [facility] HospitalIjvvyrtQPSQHIAXZTOG9704-08-31 21:20:00 Test Item Value Reference Range Interpretation Comments Potassium Lvl (test code = Potassium 4.1 3.5-5.1 Lvl) [facility] HospitalRjagwxoADKAHCCAJXYB4878-60-74 21:20:00 Test Item Value Reference Range Interpretation Comments Chloride Lvl (test code = Chloride Lvl) 108 95-109 [facility] HospitalZaavbgeAZINYQMSFZHP7349-68-05 21:20:00 Test Item Value Reference Range Interpretation Comments Glucose Lvl (test code = Glucose Lvl) 187 70-99 [facility] HospitalLdhnhuoYFAUNZXLBAUC5890-14-97 21:20:00 Test Item Value Reference Range Interpretation Comments BUN (test code = BUN) 18 7-22 [facility] HospitalOcooctkVROGNPWAILVZ6861-12-11 21:20:00 Test Item Value Reference Range Interpretation Comments Creatinine Lvl (test code = Creatinine 1.56 0.50-1.40 Lvl) [facility]AcsqwfhYHGVSNDJJZ2939-04-29 21:20:00 Test Item Value Reference Range Interpretation Comments Eosinophils # (test code 0.3 See_Comment [A utomated message] The = Eosinophils #) system whic h generated this result tra nsmitted reference range : <=0.5. The reference r davey was not used to int erpret this result as normal/abnormal . [facility] NortheastPmllktvWCDJSZHOPL4171-73-98 21:20:00 Test Item Value Reference Range Interpretation Comments Segs-Bands # (test code = Segs-Bands #) 7.8 1.5-8.1 [facility] NortheastGvzluobIFMPOHSZMK5066-10-81 21:20:00 Test Item Value Reference Range Interpretation Comments Lymphocytes # (test code = Lymphocytes 1.4 1.0-5.5 #) [facility] NortheastLsjalhjBJNJMFFGPV2820-41-12 21:20:00 Test Item Value Reference Range Interpretation Comments Monocytes # (test code 0.7 See_Comment [Aut omated message] The = Monocytes #) system which generated this result tra nsmitted reference range : <=0.8. The reference r davey was not used to int erpret this result as normal/abnormal . [facility] NortheastXfnvdchAAFKWUFKHK0840-52-02 21:20:00 Test Item Value Reference Range Interpretation Comments Segs (test code = Segs) 76.7 45.0-75.0 [facility] NortheastHcwechgCZSCGWBNEN6689-22-58 21:20:00 Test Item Value Reference Range Interpretation Comments Lymphocytes (test code = Lymphocytes) 13.4 20.0-40.0 [facility] NortheastHslvlbiUUKQYNWHDT8469-88-34 21:20:00 Test Item Value Reference Range Interpretation Comments Monocytes (test code = Monocytes) 7.2 2.0-12.0 [facility] NortheastQpplcyuYZDHBDFZAE5819-42-12 21:20:00 Test Item Value Reference Range Interpretation Comments Eosinophils (test code = 2.5 See_Comment [A utomated message] The Eosinophils) system which ge nerated this result tra nsmitted reference range : <=4.0. The reference r davey was not used to int erpret this result as normal/abnormal . [facility] NortheastEtkbqlvOMGYNDZYBL4720-08-28 21:20:00 Test Item Value Reference Range Interpretation Comments Basophils (test code = 0.2 See_Comment [Aut omated message] The Basophils) system which ge nerated this result tra nsmitted reference range : <=1.0. The reference r davey was not used to int erpret this result as normal/abnormal . [facility] NortheastYrjbzwwPABPBZEIUD8756-40-65 21:20:00 Test Item Value Reference Range Interpretation Comments MCHC (test code = MCHC) 32.9 32.0-36.0 [facility] NortheastDlrysojXPUQDIBMEC9685-40-49 21:20:00 Test Item Value Reference Range Interpretation Comments RDW (test code = RDW) 13.9 11.5-14.5 [facility] NortheastZfdosvoXHYJNJGCBI8100-75-79 21:20:00 Test Item Value Reference Range Interpretation Comments MCH (test code = MCH) 29.7 pg 27.0-31.0 [facility] NortheastDgfjpptMYJFKAPXXB8063-60-34 21:20:00 Test Item Value Reference Range Interpretation Comments MPV (test code = MPV) 6.9 7.4-10.4 [facility] NortheastDwxmpuzTEWLXOJOXC8548-67-88 21:20:00 Test Item Value Reference Range Interpretation Comments Platelet (test code = Platelet) 286 133-450 [facility] NortheastOxeklxaTRANUZQVND3973-31-59 21:20:00 Test Item Value Reference Range Interpretation Comments WBC (test code = WBC) 10.1 3.7-10.4 [facility] NortheastSefpxmfLSVRHOVUZU4362-56-15 21:20:00 Test Item Value Reference Range Interpretation Comments RBC (test code = RBC) 5.49 4.70-6.10 [facility]AB[facility]AA7841[facility] 21:20:00 Test Item Value Reference Range Interpretation Comments MCV (test code = MCV) 90.3 80.0-94.0 [facility]LmncnujFLIIRYZBOT5136-95-66 21:20:00 Test Item Value Reference Range Interpretation Comments Hct (test code = Hct) 49.6 42.0-54.0 [facility] RegionGsgxkesPQUEHLUWPT2930-94-39 21:20:00 Test Item Value Reference Range Interpretation Comments Hgb (test code = Hgb) 16.3 14.0-18.0 [facility]2016-06-22 21:20:00 Test Item Value Reference Range Interpretation Comments Lipase Lvl (test code = Lipase Lvl) 220 73-393 [facility] HospitalYwvxuqgDWALOZEGUCHB9173-03-69 21:20:00 Test Item Value Reference Range Interpretation Comments AGAP (test code = AGAP) 12.1 10.0-20.0 [facility] HospitalTjgiofuZLSFWSZIPQAB3863-22-99 21:20:00 Test Item Value Reference Range Interpretation Comments Globulin (test code = Globulin) 4.0 2.0-4.0 [facility]CecpqiiRNDPXHWSQRXO1835-78-26 21:20:00 Test Item Value Reference Range Interpretation Comments A/G Ratio (test code = A/G Ratio) 0.8 0.7-1.6 [facility] HospitalSopqaccFIYNUDSFEQFB7058-52-91 21:20:00 Test Item Value Reference Range Interpretation Comments B/C Ratio (test code = B/C Ratio) 12 6-25 [facility] HospitalUoaulipTKQQTCJQJLSY4384-57-50 21:20:00 Test Item Value Reference Range Interpretation Comments Bili Total (test code = Bili Total) 0.5 0.2-1.3 [facility] HospitalSjezueiPZRIFFIRVKPL4652-21-85 21:20:00 Test Item Value Reference Range Interpretation Comments Alk Phos (test code = Alk Phos) 133 39-136 [facility] HospitalBqdrfnmXAFKTXJHHLCF0352-88-44 21:20:00 Test Item Value Reference Range Interpretation Comments AST (test code = AST) 19 See_Comment [Auto mated message] The system which ge nerated this result transmit rafia reference range : <=37. The reference range was not used to interpr et this result as chidi l/abnormal. [facility] HospitalXgdpstcNWKYOVAVMCNJ2225-47-12 21:20:00 Test Item Value Reference Range Interpretation Comments eGFR (test code = eGFR) 54 [facility] HospitalRrwfvgqLSHXQZSRGMRT0576-44-48 21:20:00 Test Item Value Reference Range Interpretation Comments Albumin Lvl (test code = Albumin Lvl) 3.4 3.5-5.0 [facility] HospitalBiggemmSTBFOUKQIJUU5518-63-98 21:20:00 Test Item Value Reference Range Interpretation Comments ALT (test code = ALT) 44 See_Comment [Auto mated message] The system which ge nerated this result transmit rafia reference range : <=65. The reference range was not used to interpr et this result as chidi l/abnormal. [facility] HospitalHgaszdsFXFCEAFABOAL8585-64-06 21:20:00 Test Item Value Reference Range Interpretation Comments Calcium Lvl (test code = Calcium Lvl) 8.8 8.5-10.5 [facility] HospitalBlpysrqWHPPZZGPZHJZ8463-19-15 21:20:00 Test Item Value Reference Range Interpretation Comments CO2 (test code = CO2) 23 24-32 [facility] HospitalRpyiklvKCNKIYFBCLKW0621-95-27 21:20:00 Test Item Value Reference Range Interpretation Comments Total Protein (test code = Total 7.4 6.4-8.4 Protein) [facility] HospitalHhvxtacUKILIVAEIRCF2391-28-23 21:20:00 Test Item Value Reference Range Interpretation Comments Sodium Lvl (test code = Sodium Lvl) 139 135-145 [facility] HospitalTufqicoVTWBCIYGHIIL9862-94-29 21:20:00 Test Item Value Reference Range Interpretation Comments Potassium Lvl (test code = Potassium 4.1 3.5-5.1 Lvl) [facility] HospitalMlofayaORGZENNBPBLT3491-37-74 21:20:00 Test Item Value Reference Range Interpretation Comments Chloride Lvl (test code = Chloride Lvl) 108 95-109 [facility] HospitalXzzkrejBJYQKGHLXVCP1816-39-58 21:20:00 Test Item Value Reference Range Interpretation Comments Glucose Lvl (test code = Glucose Lvl) 187 70-99 [facility] HospitalIpuqslqVMOMPSUEFDDO2792-05-39 21:20:00 Test Item Value Reference Range Interpretation Comments BUN (test code = BUN) 18 7-22 [facility] HospitalHhsemasKPTBSSBLYATQ6887-35-65 21:20:00 Test Item Value Reference Range Interpretation Comments Creatinine Lvl (test code = Creatinine 1.56 0.50-1.40 Lvl) [facility]mmfwsVZBRHUVPJI8970-88-80 21:20:00 Test Item Value Reference Range Interpretation Comments Eosinophils # (test code 0.3 See_Comment [A utomated message] The = Eosinophils #) system whic h generated this result tra nsmitted reference range : <=0.5. The reference r davey was not used to int erpret this result as normal/abnormal . [facility]GuiyicbHXHCTGWMCE1519-99-61 21:20:00 Test Item Value Reference Range Interpretation Comments Segs-Bands # (test code = Segs-Bands #) 7.8 1.5-8.1 [facility]BvfeebkOJTTFCDVOE9129-64-71 21:20:00 Test Item Value Reference Range Interpretation Comments Lymphocytes # (test code = Lymphocytes 1.4 1.0-5.5 #) [facility]CkqnivlFZGSSBZVRF3986-37-67 21:20:00 Test Item Value Reference Range Interpretation Comments Monocytes # (test code 0.7 See_Comment [Aut omated message] The = Monocytes #) system which generated this result tra nsmitted reference range : <=0.8. The reference r davey was not used to int erpret this result as normal/abnormal . [facility] NortheastYzinvtiZTTHXDAVHK3625-65-39 21:20:00 Test Item Value Reference Range Interpretation Comments Segs (test code = Segs) 76.7 45.0-75.0 [facility] NortheastDqovejiPAHZFDIZIU4991-17-48 21:20:00 Test Item Value Reference Range Interpretation Comments Lymphocytes (test code = Lymphocytes) 13.4 20.0-40.0 [facility]JqzlqmzBHPEQTMJZV8383-15-84 21:20:00 Test Item Value Reference Range Interpretation Comments Monocytes (test code = Monocytes) 7.2 2.0-12.0 [facility]MbfxduuRAKQPXHCJF8593-52-26 21:20:00 Test Item Value Reference Range Interpretation Comments Eosinophils (test code = 2.5 See_Comment [A utomated message] The Eosinophils) system which ge nerated this result tra nsmitted reference range : <=4.0. The reference r davey was not used to int erpret this result as normal/abnormal . [facility]JviugmlQAHNVXHITJ7051-17-76 21:20:00 Test Item Value Reference Range Interpretation Comments Basophils (test code = 0.2 See_Comment [Aut omated message] The Basophils) system which ge nerated this result tra nsmitted reference range : <=1.0. The reference r davey was not used to int erpret this result as normal/abnormal . [facility] NortheastVhsjohdJXUGSSYEEN2183-80-72 21:20:00 Test Item Value Reference Range Interpretation Comments MCHC (test code = MCHC) 32.9 32.0-36.0 [facility]EyqlnxoVDYZNVJHMS7019-39-96 21:20:00 Test Item Value Reference Range Interpretation Comments RDW (test code = RDW) 13.9 11.5-14.5 [facility]NwqfnuoFNVBKGHDEK5217-42-90 21:20:00 Test Item Value Reference Range Interpretation Comments MCH (test code = MCH) 29.7 pg 27.0-31.0 [facility]SrmjmxfRCICHQVIFI9811-05-11 21:20:00 Test Item Value Reference Range Interpretation Comments MPV (test code = MPV) 6.9 7.4-10.4 [facility] NortheastFgcttwhDGZDCKNEDG2258-63-56 21:20:00 Test Item Value Reference Range Interpretation Comments Platelet (test code = Platelet) 286 133-450 [facility] NortheastYrdihnsEVWUDWRWFL5015-06-15 21:20:00 Test Item Value Reference Range Interpretation Comments WBC (test code = WBC) 10.1 3.7-10.4 [facility] NortheastEobowtwBVGZEVKHGL1116-54-30 21:20:00 Test Item Value Reference Range Interpretation Comments RBC (test code = RBC) 5.49 4.70-6.10 [facility] NortheastUmudhfjOAGCPWIMKG2626-11-78 21:20:00 Test Item Value Reference Range Interpretation Comments MCV (test code = MCV) 90.3 80.0-94.0 [facility] NortheastUbfwuyqOWLNBVJOFR0203-63-50 21:20:00 Test Item Value Reference Range Interpretation Comments Hct (test code = Hct) 49.6 42.0-54.0 [facility] NortheastZnkhgorPRQOIVJBEL2563-71-65 21:20:00 Test Item Value Reference Range Interpretation Comments Hgb (test code = Hgb) 16.3 14.0-18.0 [facility] Notes Date/Time Note Provider Source 2018-06-05 14:30:00-00:00 [facility]CAKW [facility] ([facility]) EMERGENCY PROVIDER REPORT REPORT#:[id number] REPORT STATUS: Signed DATE:06/05/18 TIME: 1430 PATIENT: MICHELLE FISHER UNIT #: [id number] ROOM/BED: AGE: 48 SEX: M PCP PHYS: No Primary or Family Ph ysician SERVICE AUTHOR: Colleen Mckenzie MD * ALL edits or amendments must be made on the hint/computer document * HPI-Headache General Confirmed Patient Yes Patient Type New patient Initial Greet Date/Time 06/05/18 1411 PCP No doctors in this area Presentation Chief Complaint Headache Hx Obtained From Patient, Family Sudden in Onset? No Onset Occurred Days ago (3-4) Symptom Duration Since onset Progression since Onset Unchanged Location Left sided Severity: Onset Moderate Severity: Current Moderate Associated with Reports: Nausea. Denies: Numbness, Vomiting. Associated Other Pt denies other symptoms Exacerbated by Nothing Relieved by Nothing Free Text HPI Notes Free Text HPI Notes 48 y/o M w/ hx of lung CA and brain tumo rs presents to the ED c/o JUNE onset 3-4 days ago. Pt states that thi s JUNE is similar to the one he would have when he had the brain tumors; which were removed 1 year ago in [place], [place]. Pt notes nausea, bilateral ear ringing, and dizzine ss. Denies any numbness or tingling. Pt took a T3 two hours prior to arriva l. Portions of this section were scribed by Thao Ramos on 06/05/18 at 1748 Risk-Headache Risk Stratification )( Subarachnoid Hemorrhage Risk factors reviewed )( IC Mass Lesion Risk factors reviewed Portions of this section were scribed by Thao Ramos on 06/05/18 at 1455 Review of Systems ROS Statements All systems rev neg except as marked. Focused Review of Systems Constitutional Denies: Chills, Fatigue, Fever. Eyes Denies: Blurred bilat, Discharge bilat, Eye pain bilat, Photophobia. Ears/Nose/Throat Reports: Ear ringing bilat. Denies: Ear drainage bilat, Earache bilat, Hearing loss bilat. GI Reports: Nausea. Denies: Diarrhea, Vomiting. Musculoskeletal Denies: Back pain, Extremity pain, Extremity swe lling. Skin Denies: Rash, Swelling. Neurologic Reports: Dizziness, Headache. Denies: Seizure, S yncope. Psychiatric Denies: Agitation, Anxiety, Confusion. Additional Review of Systems Respiratory Denies: Cough, non-productive, Cough, productive , Shortness of breath. Cardiovascular Denies: Chest pain, Edema, Syncope. Male Denies: Dysuria, Flank pain, Hematuria. Portions of this section were scribed by Thao Ramos on 06/05/18 at 1455 Past Medical History - Adult Stated Complaint HEAD PAIN, CANCER PT Allergies Coded Allergies: ziprasidone (From GEODON) (Severe, COMBATIVE ) iodine (UNKNOWN 06/05/18) Review of Nursing Notes Rev avail, and agree Past Medical History: Reports: Kidney disease/stones. Additional Medical History Lung CA. Brain tumors. Additional Surgical History craniotomy Alcohol Use Denies EtOH use Drug Use Denies recreational drugs Smoking status for patients 13 years old or olde r: Current every day smoker Other Social History Local resident, Good social support Ambulatory Status Independent Portions of this section were scribed by Thao Ramos on 06/05/18 at 1741 Physical Exam Vital Signs Vital Signs First Documented: Result Date Time Pulse Ox 96 06/05 1401 B/P 151/101 06/05 1401 B/P Mean 117.8 06/05 1401 Temp 97.9 06/05 1401 Pulse 105 06/05 1401 Resp 24 06/05 1401 O2 Delivery Room air 06/05 1629 O2 Flow Rate 2.591316 06/05 1722 Last Documented: Result Date Time Pulse Ox 98 06/05 1722 B/P 142/84 06/05 1722 B/P Mean 103 06/05 1722 O2 Delivery Nasal cannula 06/05 1722 O2 Flow Rate 2.307050 06/05 1722 Pulse 95 06/05 1722 Resp 18 06/05 1722 Temp 97.9 06/05 1401 Review of Vital Signs Reviewed Basic Physical Exam Basic PE EYES: PERRL, conj c lear, ENT: Membranes moist, RESP: No resp distress, CV: Reg rate rhythm, ABD: Soft/non-tende r, EXT: No gross abnormality, SKIN: No rashes, warm/dry, PSYCH: NL thought content Focused PE General/Const General/Const Awake, Alert, Well developed, Wel l hydrated, Well nourished, Cooperative, Not toxic appearing Text/Dict Notes In distress from sxs and obvious pain MS Head Text/Dict Notes Frontal non-tender round mass about 5 cm lipama like mass appearance. Eyes Eyes PERRL, EOMI, No periorbital swelling Ears/Nose/Throat Ears/Nose/Throat Airway patent, Mucous membrane s moist, No pooling of secretions, No trismus MS Neck Neck Supple, No meningismus, No swelling Resp/Chest Respiratory/Chest No rales, No rhonchi, No whee zing, No retractions Text/Dict Notes Tachypneic Cardiovascular Cardiovascular Heart sounds NL, Cap refill not delayed, Peripheral circulation NL Heart Rate/Rhythm Tachycardia. Abdomen/GI Abdomen/GI Soft, Non-tender, No guarding, No re bound Skin Skin Color NL, Warm, Dry, Turgor NL Neurologic Neurologic Oriented X3, Speech NL, No motor def icits, CN II - XII intact, Cerebellar NL, Memory NL Psychiatric Psychiatric Affect NL, Mood NL, Cognitive funct ion NL, Judgment/insight NL Additional PE MS Back Back Full range of motion, Painless range of mo tion MS Upper Extrem Upper Extremity/MS Full range of motion, No def ormity MS Lower Extrem Lower Ext/Pelvis/MS Full range of motion, No sw elling, No deformity Portions of this section were scribed by Thao Ramos on 06/05/18 at 1741 Interpretation Diagnostics Lab Results Interpretation Results Laboratory Tests 06/05/18 1441: [Embedded Image Not Available] Laboratory Tests: 06/05 06/05 06/05 06/05 1453 1443 1441 1441 Chemistry Sodium (137 - 145 mmol/L) 138 Potassium (3.4 - 5.0 mmol/L) 4.3 Chloride (98 - 107 mmol/L) 108 H Carbon Dioxide (22 - 30 mmol/L) 18 L BUN (9 - 20 mg/dL) 20 Creatinine (0.7 - 1.3 mg/dL) 1.8 H Glomerular Filtr Rate (>60) 43 L Glucose (74 - 106 mg/dL) 347 H POC Lactic Acid (0.7 - 2.0 mmol/L) 1.17 Calcium (8.4 - 10.2 mg/dL) 9.3 Total Bilirubin (0.2 - 1.3 mg/dL) 0.3 Conjugated Bilirubin (0 - 0.3 mg/dL) 0 Unconjugated Bilirubin (0 - 1.1 mg/dL) 0 AST (15 - 46 U/L) 21 ALT (13 - 69 U/L) 31 Total Alk Phosphatase (38 - 126 U/L) 130 H Rapid Troponin I (0.00 - 0.079 ng/mL) 0.01 Total Protein (6.3 - 8.2 g/dL) 7.0 Albumin (3.5 - 5.0 g/dL) 4.0 Lipase (23 - 300 U/L) 133 Procalcitonin (NG/ML) < 0.05 Coagulation INR 1.0 PTT (Marga) (23.4 - 37.0 SECONDS) 25.6 PT Patient/Control Mix (9.2 - 12.1 11.2 SECONDS) Hematology WBC (5.0 - 12.0 x10 3/uL) 8.2 RBC (4.70 - 6.10 x10 6/uL) 4.90 Hgb (14.0 - 18.0 g/dL) 15.2 Hct (37.0 - 49.0 %) 45.3 MCV (80 - 94 fL) 92 MCH (27 - 31 pg) 31.0 MCHC (33 - 37 g/dL) 33.6 RDW (11.5 - 15.5 %) 13.2 Plt Count (130 - 400 x10 3/uL) 240 MPV (9.4 - 16.4 fL) 8.9 L Neut % (Auto) (43 - 65 %) 60.1 Lymph % (Auto) (20.5 - 45.5 %) 32.6 Turner % (Auto) (5.5 - 11.7 %) 4.5 L Eos % (Auto) (0.9 - 2.9 %) 2.2 Baso % (Auto) (0.2 - 1.0 %) 0.4 Neut # (Auto) (2.2 - 4.8 x10 3/uL) 4.89 H Lymph # (Auto) (1.3 - 2.9 x10 3/uL) 2.66 Turner # (Auto) (0.3 - 0.8 x10 3/uL) 0.37 Eos # (Auto) (0.0 - 0.2 x10 3/uL) 0.18 Baso # (Auto) (0.0 - 0.1 x10 3/uL) 0.03 Immature Gran % (0.0 - 2.0 %) 0.2 Nucleated RBC % (0 - 1.0 %) 0.0 Urines Urine Color (Yellow) Straw Urine Appearance (Clear) Clear Urine pH (5.0 - 8.0) 6.0 Ur Specific [place] (<1.030) 1.015 Urine Protein (Negative mg/dL) 30 (1+) H Urine Glucose (UA) (Negative) >=500 (3+) H Urine Ketones (Negative mg/dL) Negative Urine Blood (Negative) 1+ H Urine Nitrite (Negative) Negative Urine Bilirubin (Negative) Negative Urine Urobilinogen (Negative mg/dL) Negative Ur Leukocyte Esterase (Negative) NEGATIVE Urine RBC (<4 - 5 /HPF) 0-3 Urine WBC (<4 - 5 /HPF) 0-3 Ur Squamous Epith Cells (0 - 5 (RARE) 0-5 (RARE ) /HPF) Urine Bacteria (None - Rare /HPF) NONE SEEN Microbiology: Date/Time Procedure - Status Source Growth 06/05 1441 Blood Culture - RES BLOOD 06/05 1441 Blood Culture - RES BLOOD Recent Impressions: RADIOLOGY - XR CHEST 1 V 06/05 1430 Report Impression - Status: SIGNED Entered: 06/05/2018 1457 IMPRESSION: 1. Right basilar atelectasis and or early infilt rate Impression By: Lizet Kim M.D. CAT SCAN - CT HEAD/BRAIN W/O CONT 06/05 1500 Report Impression - Status: SIGNED Entered: 06/05/2018 1523 IMPRESSION: Postop changes in the left occipital region with encephalomalacia seen deep to the postoperative site. No definite findings for recurrent lesion. No space-occupyin g processes or intracranial hemorrhage. Impression By: Rekha Dior MD Lab Imaging Statement Laboratory radiographic studies reviewed and con sidered in the medical decision-making. Point of Care Testing Pulse Oximetry Pulse Ox % 96 On: Room air Interpretation Interpreted by me, Pulse oximetr y normal Time 1401 ECG #1 Interpretation Text/Dict Note Sinus tachycardia. Left axis deviation. Date 06/05/18 Time 1436 Interpreted by ED physician Rate 102 Portions of this section were scribed by Thao Ramos on 06/05/18 at 1748 Re-Evaluation MDM Free Text MDM Notes Free Text MDM Notes arrived and provided mo re hx on reeval. Hx of lung CA, large left mass. Hx of chemoradiation. Hx of intubation for large pe riod of time. Has bilateral bronchial stents. When he went to [place] h ad a severe JUNE and found to have brain mass. Status post chemo and resection. Has had a bscesses on thigh, saw doctor and was placed on Bactrim, which he just finishe d. Denies fevers. exam: + superificial 1cm tenderness firmness on left inn er thigh reviewed labs and CT with pt and and need for urgent f/u for mri and labs/ ct are not definitive. )( Re-Evaluation/Progress #1 Time of Re-Eval 1740 )( Re-Eval Status Improved ED Course Medication(s) Ordered Medication(s) Ordered: Anti-Infective Agents Sig/Yasmin Start time Last Medication Dose Route Stop Time Status Admin Ceftriaxone Sodium 1,000 MG X1ED STA 06/05 1410 DC 06/05 Sterile Water 10 ML IV 06/05 1412 1447 Central Nervous System Agents Sig/Yasmin Start time Last Medication Dose Route Stop Time Status Admin Hydrocodone Bitart/ 1 TAB X1ED STA 06/05 1706 D C 06/05 Acetaminophen PO 06/05 1707 1722 Morphine Sulfate 4 MG X1ED STA 06/05 1430 DC IV 06/05 1431 1447 Electrolytic, Caloric, And Janet Sig/Yasmin Start time Last Medication Dose Route Stop Time Status Admin Lactated Ringer's 1,000 ML X1ED STA 06/05 1410 DC 18 IV 06/05 1509 1447 Gastrointestinal Drugs Sig/Yasmin Start time Last Medication Dose Route Stop Time Status Admin Ondansetron HCl 4 MG X1ED STA 06/05 1430 DC IV 06/05 1431 1447 Portions of this section were scribed by Thao Ramos on 06/05/18 at 1741 Patient Discharge Departure Vital Signs/Condition Vital Signs First Documented: Result Date Time Pulse Ox 96 06/05 1401 B/P 151/101 06/05 1401 B/P Mean 117.8 06/05 1401 Temp 97.9 06/05 1401 Pulse 105 06/05 1401 Resp 24 06/05 1401 O2 Delivery Room air 06/05 1629 O2 Flow Rate 2.142518 06/05 1722 Last Documented: Result Date Time Pulse Ox 98 06/05 1721 B/P 142/84 06/05 172 B/P Mean 103 06/05 172 O2 Delivery Nasal cannula 06/05 1721 O2 Flow Rate 2.998787 06/05 172 Pulse 95 06/05 1722 Resp 18 06/05 172 Temp 97.9 06/05 1401 All vital signs available at the time of this en try have been reviewed. Condition Improved, Stable Clinical Impression Clinical Impression Primary Impression: Headache Disposition Decision Discharge )( Discharged to Home Yes )( Time 1748 )( Date 06/05/18 Discharge/Care Plan Counseled Regarding Diagnosi s, Lab results, Imaging studies, Need for follow-up, When to return to ED Prescriptions south, t#3 Discharge Note I have spoken with the patie nt and/or caregivers. I have explained the patient's condition, diagnoses and juan alberto atment plan based on the information available to me at this time. I have answered the patient's and/ or caregiver's questions and addressed any concerns. The patient and/or careg marcus have as good an understanding of the patient 's diagnosis, condition and treatment plan as can be expected at this point. The vital signs have bee n stable. The patient's condition is stable and appr opriate for discharge from the emergency department. The patient will pursue further outpatient evalu ation with the primary care physician or other designated or consulting phys ician as outlined in the discharge instructions. The patient and/or caregivers are agreeable to this plan of care and follow-up instructions have been exp lained in detail. The patient and/or caregivers have received these instructio ns in written format and have expressed an understanding of the discharge inst ructions. The patient and/or caregivers are aware that any significant change in condition or worsening of symptoms should prompt an immediate return to [facility] or the closest emergency department or a call to 911. Quality Measures BP F/U for HTN Referred for BP f/u < 4wk, F/u wi th PCP/other doc Smoking Cessation Screened, tobacco user, Tobacc o cess intervention Tobacco Screening/Cessation 18 years or older, Tobacco user, Smoking cessation offered Supervising Physician Note Scribe Statement Aicha Ramos, 06/05/18 2339, scribing for and in the presence of [Magaly]. Signed By: Aicha Ramos, 06/05/18 8599 Provider Scribed Statement I personally performed the s ervices described in this documentation and reviewed the documentation that was dictated to the scrib e(s) in my presence, and it accurately records my words and actions. Jessica Mckenzie, 06/07/18 Portions of this section were scribed by Thao Ramos on 06/05/18 at 1748 Electronically Signed by Colleen Mckenzie MD on 06/07 at 1058 RPT #[id number] END OF REPORT 2016-02-10 04:24:02-00:00 Clinical Indication: Abnormal chest so unds; [facility] Comparison: 02/08/2016 FINDINGS: AP chest radiographs shows [...] early infiltrate which has slightly worsened. SL: [id number] 2016-02-10 04:24:02-00:00 Clinical Indication: Abnormal chest so unds; [facility] Comparison: 02/08/2016 FINDINGS: AP chest radiographs shows [...] early infiltrate which has slightly worsened. SL: [id number] 2016-02-09 19:25:00-00:00 Clinical Indication: Scrotal pain of u nknown origin [facility] Comparison: CT of the abdomen and pelvis dated 04/11/2015. TECHNIQUE: Sonographic evaluation of th e [...] normal t esticular Doppler blood flow. SL: [id number] 2016-02-09 19:25:00-00:00 Clinical Indication: Scrotal pain of u nknown origin [facility] Comparison: CT of the abdomen and pelvis dated 04/11/2015. TECHNIQUE: Sonographic evaluation of e scrotum and testes was performed using [...] normal t esticular Doppler blood flow. SL: [id number] 2016-02-09 16:10:00-00:00 Clinical Indication: Right l ower lobe mass, incarcerated hernia and severe inguinal pain. [facility] Comparison: CTA chest 02/06/2016. TECHNIQUE: Helical imaging [...] the PE study, however this study, nor th e PE study is tailored to the evaluation [...] enhanced CT, or PET CT. SL: [id number] 2016-02-09 16:10:00-00:00 Clinical Indication: Right l ower lobe mass, incarcerated hernia and severe inguinal pain. [facility] Comparison: CTA chest 02/06/2016. TECHNIQUE: Helical imaging [...] the PE study, however this study, nor th e PE study is tailored to the evaluation [...] enhanced CT, or PET CT. SL: [id number] 2016-02-08 08:15:00-00:00 [facility] 1970[facility] 45 years y/[facility] Male MR: [id number] Study: Chest 1view DX 02/08/2016 7:14 AM 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 Ordering Physician: Home Cooper MD Clinical Indication: Abnormal chest sounds; Comparison: 02/06/2016 FINDINGS: The frontal chest radiograph shows stable focal opacities in the right lower lobe without worsening or evidence of a pleural effusion. The rest of the lung clakr are clear. The cardiomediastinal silhouette is within normal limits. There are no clinically significant osseous abno rmalities noted. IMPRESSION: Unchanged right lower lobe pneumonic consolidati on. 2016-02-08 08:15:00-00:00 Patient Name: MICHELLE FISHER [facility] : 1970; Age: 45 years y/o Male MR: [id number] Study: Chest 1view DX 02/08/2016 7:14 AM 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 Ordering Physician: Home Cooper MD Clinical Indication: [...] Unchanged right lower lobe pneumonic consolidati on. 2016-02-06 09:00:00-00:00 Clinical Indication: Dyspnea on exerti on, hemoptysis [facility] Comparison: None TECHNIQUE: Sequential trans- axial images [...] tumor seen within right bronchus intermedius. SL: [id number] 2016-02-06 09:00:00-00:00 Clinical Indication: Dyspnea on exerti on, hemoptysis [facility] Comparison: None TECHNIQUE: Sequential trans- axial images [...] tumor seen within right bronchus intermedius. SL: [id number] 2016-02-06 05:30:05-00:00 Clinical Indication: Coughin g for one week, difficulty breathing. [facility] Comparison: 12/16/2012 FINDINGS: PA and lateral views of the chest have been prov ided. Right basilar infiltrate wit hout silhouetting of the right heart border likely represents a right lower lobe pneumonia. Heart size is normal. Central pulmonary vasculat ure appears normal. No effusion. No pneumothorax. Osseous structures demonstrate no acute abnormal ity. IMPRESSION: 1. Right lower lobe pneumonia SL: [id number] 2016-02-06 05:30:05-00:00 Clinical Indication: Coughin g for one week, difficulty breathing. [facility] Comparison: 12/16/2012 FINDINGS: PA and lateral views of the chest have been prov ided. Right basilar infiltrate wit hout silhouetting of the right heart border likely represents a right lower lobe pneumonia. Heart size is normal. Central pulmonary vasculat ure appears normal. No effusion. No pneumothorax. Osseous structures demonstrate no acute abnormal ity. IMPRESSION: 1. Right lower lobe pneumonia SL: [id number] 2015-08-10 16:15:00-00:00 Clinical Indication: Abdominal pain, a cute [facility] Comparison: None TECHNIQUE: Grayscale and limited color [...] for further evaluation if clinically indicated. SL: [id number] 2015-08-10 16:15:00-00:00 Clinical Indication: Abdominal pain, a cute [facility] Comparison: None TECHNIQUE: Grayscale and limited color [...] for further evaluation if clinically indicated. SL: [id number]
[2022-09-12] MEDS ORDERED: NA CHLORIDE 0.9% 1,000 ML ONE (12:34)
[2022-09-12] MEDS ORDERED: ONDANSETRON 4 MG/2 ML VIAL ONE ×2 (12:34→14:24)
[2022-09-12] MEDS ORDERED: FAMOTIDINE 20 MG/2 ML VIAL IV ONE (12:34)
[2022-09-12 13:08] LABS: Absolute Lymphocytes (CBC) 1.4 K/uL (0.7-4.9); Lymphocytes % 10.3 % (15.3-44.8); MCV 94.1 fL (80-100); MPV 7.3 fL (7.6-11.3); RBC Red Blood Cell Count 4.88 M/uL (4.33-5.43)
[2022-09-12 13:20] LABS: Albumin 3.5 g/dL (3.4-5.0); Bilirubin Total 0.4 mg/dL (0.2-1.0); Protein, Total 7.4 g/dL (6.4-8.2)
[2022-09-12 13:25] LABS: Specific Gravity 1.022 (1.005-1.030); Urine Bacteria None Seen /HPF (<20); Urine Bilirubin NEGATIVE (Negative); Urine Blood 1+ (Negative); Urine Clarity Clear (Clear); Urine Color Colorless (Yellow); Urine Glucose 4+ (Over) (Negative); Urine Protein 3+ (Negative); Urine RBC <5 /HPF (None Seen); Urine Urobilinogen Normal (Normal)
--- NOTE | 2022-09-12 14:19 | ER ---
Nurse's Notes [facility] Name: Sanjeev Mcpherson Age: 52 yrs Sex: Male : 1970 Arrival Date: 09/12/2022 Time: 11:52 Bed 2 Private MD: Ramon Harris Diagnosis: Unspecified symptoms and signs involving the musculoskeletal system;Acute kidney failure, unspecified-ON CHRONIC;Elevated white blood cell count;Type 2 diabetes mellitus with hyperglycemia Presentation: 09/12 12:00 Chief complaint: Patient states: 'I was just here last night because I had back pain aa5 and a headache, today my whole left side of my body hurts". Coronavirus screen: At this time, the client does not indicate any symptoms associated with coronavirus-19. Ebola Screen: Patient denies travel to an Ebola-affected area in the 21 days before illness onset. Initial Sepsis Screen: Does the patient meet any 2 criteria? HR > 90 bpm. Does the patient have a suspected source of infection? No. Patient's initial sepsis screen is negative. Risk Assessment: Do you want to hurt yourself or someone else? Patient reports no desire to harm self or others. Onset of symptoms was August 2022. 12:00 Acuity: JULIANNE 3 aa5 12:00 Method Of Arrival: Ambulatory aa5 Triage Assessment: 16:31 General: Appears uncomfortable. db Historical: - Allergies: 12:01 Adhesives; tape; aa5 12:01 Anesthetics - Amide Type; aa5 12:01 Iodine; aa5 - PMHx: 12:01 "I only have 1 lung that works"; BRAIN TUMOR; Cancer; Diabetes - NIDDM; Hyperlipidemia; aa5 Hypertension; Lung Cancer; - PSHx: 12:01 Brain tumor removed; hernia repair; aa5 - Immunization history:: Adult Immunizations unknown. - Social history:: Smoking status: Patient denies any tobacco usage or history of. - Family history:: not pertinent. Screenin:00 [facility] ED Fall Risk Assessment (Adult) History of falling in the last 3 months, ko1 including since admission No falls in past 3 months (0 pts) Confusion or Disorientation No (0 pts) Intoxicated or Sedated No (0 pts) Impaired Gait No (0 pts) Mobility Assist Device Used No (0 pt) Altered Elimination No (0 pt) Score/Fall Risk Level 0 - 2 = Low Risk Oriented to surroundings, Maintained a safe environment, Educated pt \\T\\ family on fall prevention, incl call for assistance when getting out of bed, Assessed \\T\\ reinforced patient's understanding of fall precautions, Provided non-skid footwear, Hourly rounding (assess needs \\T\\ fall precautionary measures) done, Used ambulatory aids as needed (educated on \\T\\ assisted with), Used gait belt as appropriate. Abuse screen: Denies threats or abuse. Denies injuries from another. Nutritional screening: No deficits noted. Tuberculosis screening: No symptoms or risk factors identified. Assessment: 12:00 General: Appears in no apparent distress. uncomfortable, Behavior is calm, cooperative, ko1 appropriate for age. Pain: Complains of pain in entire left side. Neuro: No deficits noted. Cardiovascular: No deficits noted. Respiratory: No deficits noted. GI: No deficits noted. : No deficits noted. EENT: No deficits noted. Derm: No deficits noted. Musculoskeletal: No deficits noted. Vital Signs: 12:00 BP 141 / 97; Pulse 104; Resp 20 S; Temp 98.2(TE); Pulse Ox 98% on R/A; Weight 88.45 kg aa5 (R); Height 5 ft. 0 in. (R); 13:32 BP 140 / 86; Pulse 91; Resp 18; Pulse Ox 100% ; ko1 17:01 BP 154 / 97; Pulse 94; Resp 18; Pulse Ox 99% on R/A; ko1 12:00 Body Mass Index 38.08 (88.45 kg, 152.4 cm) aa5 ED Course: 11:52 Patient arrived in ED. am2 11:53 Ramon Harris DO is Private Physician. am2 11:54 David Alberts MD is Attending Physician. [facility] 12:00 Arm band placed on. aa5 12:00 Patient has correct armband on for positive identification. Bed in low position. Call ko1 light in reach. Side rails up X 1. Provided Education on: pain control. Pulse ox on. NIBP on. Door closed. Noise minimized. Warm blanket given. 12:01 Triage completed. aa5 12:03 Malia Barrow, ДМИТРИЙ is Primary Nurse. ko1 12:52 Inserted saline lock: 20 gauge in left forearm, using aseptic technique. Blood sm8 collected. 12:54 Troponin High Sensitivity Sent. sm8 12:54 CBC with Diff Sent. sm8 12:54 CMP Sent. sm8 12:54 Lipase Sent. sm8 13:07 EKG done, by ED staff. sm8 14:15 Alex Brody is Hospitalizing Provider. vanessa 15:33 C Spine Wo Cont In Process Unspecified. EDMS 15:33 Brain Wo Cont In Process Unspecified. EDMS 17:01 No provider procedures requiring assistance completed. Patient admitted, IV remains in ko1 place. Administered Medications: 12:54 Drug: NS 0.9% IV 1000 ml Route: IV; Rate: 1 bolus; Site: left forearm; ko1 12:56 Drug: Famotidine IVP 20 mg Route: IVP; Site: left forearm; ko1 12:56 Drug: Ondansetron IVP 4 mg Route: IVP; Site: left forearm; ko1 14:20 Drug: Insulin Regular Human Sub-Q 10 units {Co-Signature: db (Meri Armendariz RN).} ko1 Route: Sub-Q; Site: left upper arm; 14:22 Drug: Insulin Regular Human IVP 10 units {Co-Signature: db (Meri Armendariz RN).} ko1 Route: IVP; Site: left upper arm; 14:22 Drug: Insulin Glargine Sub-Q 30 units Route: Sub-Q; Site: left upper arm; ko1 14:25 Drug: morphine IVP or IV 4 mg Route: IVP; Infused Over: 4 mins; Site: left forearm; ko1 14:25 Drug: Ondansetron IVP 4 mg Route: IVP; Site: left upper arm; ko1 14:29 Drug: Ativan IVP 2 mg Route: IVP; Site: left forearm; ko1 Medication: 17:01 VIS not applicable for this client. ko1 Outcome: 14:19 Decision to Hospitalize by Provider. vanessa 17:53 Admitted to Med/surg accompanied by tech, family with patient, via wheelchair, room ko1 204, with chart, Report called to ДМИТРИЙ [place] 17:53 Condition: stable 17:53 Instructed on the need for admit. 17:55 Patient left the ED. ko1 Signatures: Dispatcher [employer] David Mendoza MD MD cha Calderon, Audri, RN RN aa5 Randi Young am2 Malia Barrow RN RN ko1 Meri Armendariz, ДМИТРИЙ RN db Angie Garcia 8 Meir Armendariz RN db Corrections: (The following items were deleted from the chart) 12:02 12:00 Initial Sepsis Screen: Does the patient meet any 2 criteria? No. Patient's aa5 initial sepsis screen is negative. Does the patient have a suspected source of infection? No. Patient's initial sepsis screen is negative. aa5
--- NOTE | 2022-09-12 14:19 | EDPHYS ---
Physician Documentation [facility] Name: Sanjeev Mcpherson Age: 52 yrs Sex: Male : 1970 Arrival Date: 09/12/2022 Time: 11:52 Bed 2 Private MD: Ramon Harris ED Physician David Alberts HPI: 09/12 14:06 This 52 yrs old Male presents to ER via Ambulatory with complaints of left vanessa side pain. 14:06 The patient or guardian complains of pain, that is acute. The complaints affect the vanessa left bicep, dorsal aspect of left forearm, left tricep and palmar aspect of left forearm. Context: The problem was sustained at an unknown location. Onset: The symptoms/episode began/occurred 3 day(s) ago. Treatment prior to arrival includes: no previous treatment. Modifying factors: The symptoms are alleviated by nothing. the symptoms are aggravated by movement. The patient presents with pain, that is acute. The complaints affect the lateral aspect of left thigh, lateral aspect of left calf, medial aspect of left thigh and medial aspect of left calf. Context: The problem was sustained at an unknown site. Modifying factors: The symptoms are alleviated by nothing. the symptoms are aggravated by nothing. Associated signs and symptoms: Pertinent positives: of the face, left arm and left leg. NO TRAUMA, PAIN YESTERDAY IN THE ER. Associated signs and symptoms: Pertinent positives: pain, of the left arm and left leg. Historical: - Allergies: 12:01 Adhesives; tape; aa5 12:01 Anesthetics - Amide Type; aa5 12:01 Iodine; aa5 - PMHx: 12:01 "I only have 1 lung that works"; BRAIN TUMOR; Cancer; Diabetes - NIDDM; Hyperlipidemia; aa5 Hypertension; Lung Cancer; - PSHx: 12:01 Brain tumor removed; hernia repair; aa5 - Immunization history:: Adult Immunizations unknown. - Social history:: Smoking status: Patient denies any tobacco usage or history of. - Family history:: not pertinent. ROS: 14:06 Constitutional: Negative for fever, chills, and weight loss, Eyes: Negative for injury, vanessa pain, redness, and discharge, ENT: Negative for injury, pain, and discharge, Neck: Negative for injury, pain, and swelling, Cardiovascular: Negative for chest pain, palpitations, and edema, Respiratory: Negative for shortness of breath, cough, wheezing, and pleuritic chest pain, Abdomen/GI: Negative for abdominal pain, nausea, vomiting, diarrhea, and constipation, : Negative for injury, bleeding, discharge, and swelling, Skin: Negative for injury, rash, and discoloration, Neuro: Negative for headache, weakness, numbness, tingling, and seizure, Psych: Negative for depression, anxiety, suicide ideation, homicidal ideation, and hallucinations, Allergy/Immunology: Negative for hives, rash, and allergies, Endocrine: Negative for neck swelling, polydipsia, polyuria, polyphagia, and marked weight changes. 14:06 Back: Positive for decreased range of motion, of the left trapezius and left scapular area. 14:06 MS/extremity: Positive for decreased range of motion, pain, tenderness, of the left arm and left leg. Exam: 14:06 Constitutional: This is a well developed, well nourished patient who is awake, alert, vanessa and in no acute distress. Head/Face: Normocephalic, atraumatic. Eyes: Pupils equal round and reactive to light, extra-ocular motions intact. Lids and lashes normal. Conjunctiva and sclera are non-icteric and not injected. Cornea within normal limits. Periorbital areas with no swelling, redness, or edema. ENT: Nares patent. No nasal discharge, no septal abnormalities noted. Tympanic membranes are normal and external auditory canals are clear. Oropharynx with no redness, swelling, or masses, exudates, or evidence of obstruction, uvula midline. Mucous membranes moist. Neck: Trachea midline, no thyromegaly or masses palpated, and no cervical lymphadenopathy. Supple, full range of motion without nuchal rigidity, or vertebral point tenderness. No Meningismus. Chest/axilla: Normal chest wall appearance and motion. Nontender with no deformity. No lesions are appreciated. Cardiovascular: Regular rate and rhythm with a normal S1 and S2. No gallops, murmurs, or rubs. Normal PMI, no JVD. No pulse deficits. Respiratory: Lungs have equal breath sounds bilaterally, clear to auscultation and percussion. No rales, rhonchi or wheezes noted. No increased work of breathing, no retractions or nasal flaring. Abdomen/GI: Soft, non-tender, with normal bowel sounds. No distension or tympany. No guarding or rebound. No evidence of tenderness throughout. Back: No spinal tenderness. No costovertebral tenderness. Full range of motion. Male : Normal genitalia with no discharge or lesions. Skin: Warm, dry with normal turgor. Normal color with no rashes, no lesions, and no evidence of cellulitis. Neuro: Awake and alert, GCS 15, oriented to person, place, time, and situation. Cranial nerves II-XII grossly intact. Motor strength 5/5 in all extremities. Sensory grossly intact. Cerebellar exam normal. Normal gait. Psych: Awake, alert, with orientation to person, place and time. Behavior, mood, and affect are within normal limits. 14:06 ECG was reviewed by the Attending Physician. 14:06 Musculoskeletal/extremity: Extremities: grossly normal except: noted in the scalp, back, left arm and left leg and left scapular area and left trapezius: decreased ROM, pain. Vital Signs: 12:00 BP 141 / 97; Pulse 104; Resp 20 S; Temp 98.2(TE); Pulse Ox 98% on R/A; Weight 88.45 kg aa5 (R); Height 5 ft. 0 in. (R); 13:32 BP 140 / 86; Pulse 91; Resp 18; Pulse Ox 100% ; ko1 17:01 BP 154 / 97; Pulse 94; Resp 18; Pulse Ox 99% on R/A; ko1 12:00 Body Mass Index 38.08 (88.45 kg, 152.4 cm) aa5 MDM: 11:54 Patient medically screened. vanessa 14:11 Differential diagnosis: contusion, tendonitis. Differential Diagnosis altered mental vanessa status. Data reviewed: vital signs, nurses notes, lab test result(s), EKG, radiologic studies, CT scan, MRI, plain films. Consideration of Admission/Observation Patient was admitted/placed on observation. Escalation of care including admission/observation considered. I considered the following discharge prescriptions or medication management in the emergency department Medications were administered in the Emergency Department. See MAR. Independent interpretation of the following test(s) in the Emergency Department EKG: See my EKG interpretation above. Test considered but Not performed: MRI: NO MRI T SPINE, NO MRI LUMBAR. Historians other than the Patient: Spouse/Significant Other: INFORMED. Care significantly affected by the following chronic conditions: Diabetes, Hypertension, Obesity, Chronic Kidney Disease. Counseling: I had a detailed discussion with the patient and/or guardian regarding: the historical points, exam findings, and any diagnostic results supporting the discharge/admit diagnosis, the presence of at least one elevated blood pressure reading (>120/80) during this emergency department visit, lab results, radiology results, the need for further work-up and treatment in the hospital. 09/12 11:55 Order name: CBC with Diff; Complete Time: 14:00 [facility] 09/12 11:55 Order name: CMP; Complete Time: 14:00 [facility] 09/12 11:55 Order name: Lipase; Complete Time: 14:00 [facility] 09/12 11:55 Order name: Urinalysis w/ reflexes; Complete Time: 14:00 [facility] 09/12 12:32 Order name: Troponin High Sensitivity; Complete Time: 14: [facility] 09/12 14:30 Order name: Glucose, Ancillary Testing [facility] 09/12 17:17 Order name: Blood Culture [facility] 09/12 17:21 Order name: Hemoglobin A1c [facility] 09/12 17:21 Order name: Magnesium [facility] 09/12 17:21 Order name: Phosphorus [facility] 09/12 17:21 Order name: T4 Free [facility] 09/12 17:21 Order name: Thyroid Stimulating Hormone [facility] 09/12 17:21 Order name: Urinalysis w/ reflexes [facility] 09/12 17:21 Order name: Basic Metabolic Panel [facility] 09/12 17:21 Order name: Basic Metabolic Panel [facility] 09/12 17:21 Order name: CBC with Automated Diff [facility] 09/12 17:21 Order name: CBC with Automated Diff [facility] 09/12 17:21 Order name: Lipid Profile [facility] 09/12 17:21 Order name: Lipid Profile [facility] 09/12 14:04 Order name: C Spine Wo Cont [facility] 09/12 14:38 Order name: Brain Wo Cont [facility] 09/12 17:13 Order name: Lumbar Spine Wo Con [facility] 09/12 12:32 Order name: EKG; Complete Time: 12:33 [facility] 09/12 17:21 Order name: 60g Consistent Carbohydrate (ADA 1800/2000) [facility] 09/12 11:55 Order name: IV Saline Lock; Complete Time: 12:52 [facility] 09/12 11:55 Order name: Labs collected and sent; Complete Time: 12:54 vanessa 09/12 12:32 Order name: EKG - Nurse/Tech; Complete Time: 12:54 vanessa EC:06 Rate is 84 beats/min. QRS Slick is Normal. FL interval is normal. QRS interval is vanessa normal. QT interval is normal. No Q waves. T waves are Normal. No ST changes noted. Interpreted by me. Reviewed by me. Administered Medications: 12:54 Drug: NS 0.9% IV 1000 ml Route: IV; Rate: 1 bolus; Site: left forearm; ko1 12:56 Drug: Famotidine IVP 20 mg Route: IVP; Site: left forearm; ko1 12:56 Drug: Ondansetron IVP 4 mg Route: IVP; Site: left forearm; ko1 14:20 Drug: Insulin Regular Human Sub-Q 10 units {Co-Signature: db (Meri Armendariz RN).} ko1 Route: Sub-Q; Site: left upper arm; 14:22 Drug: Insulin Regular Human IVP 10 units {Co-Signature: db (Meri Armendariz RN).} ko1 Route: IVP; Site: left upper arm; 14:22 Drug: Insulin Glargine Sub-Q 30 units Route: Sub-Q; Site: left upper arm; ko1 14:25 Drug: morphine IVP or IV 4 mg Route: IVP; Infused Over: 4 mins; Site: left forearm; ko1 14:25 Drug: Ondansetron IVP 4 mg Route: IVP; Site: left upper arm; ko1 14:29 Drug: Ativan IVP 2 mg Route: IVP; Site: left forearm; ko1 Disposition Summary: 09/12/22 14:19 Hospitalization Ordered Hospitalization Status: Inpatient Admission vanessa Provider: Alex Brody cha Location: Telemetry/MedSurg (Inpatient) vanessa Condition: Fair vanessa Problem: new vanessa Symptoms: have improved vanessa Bed/Room Type: Standard [facility] Room Assignment: 204(09/12/22 17:36) bd Diagnosis - Unspecified symptoms and signs involving the musculoskeletal system vanessa - Acute kidney failure, unspecified - ON CHRONIC vanessa - Elevated white blood cell count vanessa - Type 2 diabetes mellitus with hyperglycemia vanessa Discharge Instructions: - Discharge Summary Sheet ko1 Forms: - Medication Reconciliation Form vanessa - SBAR form vanessa - Family Work Release ko1 Signatures: Dispatcher [employer] EDMS Ro La Corey, MD MD cha Calderon, Audri RN RN aa5 Malia Barrow RN RN ko1 Meri Armendariz RN db Corrections: (The following items were deleted from the chart) 14:38 14:01 MR STROKE PROTOCOL+MRI.RAD.BRZ ordered. EDMS EDMS 17:36 14:19 vanessa durham
[2022-09-12] MEDS ORDERED: INSULIN GLARGINE 100 UNIT/ML SQ ONE (14:24)
[2022-09-12] MEDS ORDERED: MORPHINE 4 MG/ML SYR ONE (14:24)
[2022-09-12] MEDS ORDERED: INSULIN -REGULAR HUMAN 50 UNIT/0.5 ML ML ONE (14:26)
[2022-09-12] MEDS ORDERED: LORazepam 2 MG/ML VIAL ONE (14:33)
--- NOTE | 2022-09-12 15:51 | RAD REPORT ---
EXAM DESCRIPTION: MRI - Brain Wo Cont - 09/12/2022 3:39 pm CLINICAL HISTORY: PAIN Headache, drowsiness COMPARISON: Head Brain Wo Cont dated 09/11/2022 TECHNIQUE: Multi-sequence, multiplanar MR imaging of the brain was performed without contrast. FINDINGS: No intracranial hemorrhage, hydrocephalus or extra-axial fluid collections.Left occipital lobe cavity is present measuring 4.6 cm. No unexpected or unusual internal finding. No edema or shift of midline structures. No findings to suspect brain mass. DWI is negative for acute CVA. Midline structures are normally formed. 15 mm frontal T2 hyperintense suspected lipoma. Mastoid air cells and paranasal sinuses are clear. IMPRESSION: Negative for acute process. Left occipital lobe cavity from prior surgical intervention without unusual finding.
--- NOTE | 2022-09-12 15:52 | RAD REPORT ---
EXAM DESCRIPTION: MRI - C Spine Wo Cont- 09/12/2022 3:39 pm CLINICAL HISTORY: arm,neck pain Neck pain, radiculopathy COMPARISON: No comparisons FINDINGS: Cervical vertebral bodies are normal in height and alignment. No suspicious marrow edema or marrow replacing process. No fracture or traumatic subluxation. The craniocervical junction is normal. C2-3 level: No significant findings. C3-4 level: Small posterior osteophyte/ disc complex attenuates the anterior subarachnoid space. C4-5 level: Small posterior osteophyte/disc complex is present attenuating the anterior subarachnoid space and contacting the anterior cord. Mild bilateral foraminal narrowing. C5-6 level: Small posterior osteophyte/ disc complex is present attenuating the anterior subarachnoid space. Mild left-sided foraminal narrowing. C6-7 level: No significant findings. C7-T1 level: No significant findings. Cervical cord is normal in size and signal. IMPRESSION: Mild midcervical spondylosis is present. No acute finding demonstrated
[2022-09-12] MEDS ORDERED: ACETAMINOPHEN 325 MG TABLET PO PRN (17:09)
[2022-09-12] MEDS ORDERED: CYCLOBENZAPRINE 10 MG TAB PO PRN (17:11)
[2022-09-12] MEDS ORDERED: ACETAMIN/CAFFEINE/BUTALB TAB PO PRN (17:11)
[2022-09-12] MEDS ORDERED: GLUCAGON 1 MG/VIAL IM PRN ×3 (17:12→17:16)
[2022-09-12] MEDS ORDERED: D50W 25 GM/50 ML SYRINGE IV PRN ×2 (17:12→17:16)
[2022-09-12] MEDS ORDERED: D10W 250 ML BAG IV PRN (17:16)
[2022-09-12] MEDS ORDERED: ONDANSETRON 4 MG/2 ML VIAL IV PRN (17:19)
[2022-09-12] MEDS: HYDROCODONE/APAP 10/325 TAB PO PRN (17:20)
--- NOTE | 2022-09-12 17:22 | P.HP ---
Certification for Inpatient Patient admitted to: Observation With expected LOS: <2 Midnights Patient will require the following post-hospital care: None Practitioner: I am a practitioner with admitting privileges, knowledge of patient current condition, hospital course, and medical plan of care. Services: Services provided to patient in accordance with Admission requirements found in Title 42 Section 412.3 of the Code of Federal Regulations Patient History Date of Service: 09/12/22 Reason for admission: Neck and Back pain History of Present Illness: Patient is a 52-year-old male with a past medical history significant for lung cancer with mets to the brain, DM 2, HTN, hyperlipidemia who presents with complaint of low back pain that has been ongoing for the past 3 days. Patient's reports neck pain that radiates to his entire left side. Patient rated pain as a 10 in severity and described pain as sharp in quality. Patient reported as sociated signs and symptoms of intractable headache, dizziness and lightheadedness. Patient denies any other signs or symptoms. Symptoms are aggravated or relieved by nothing. Patient was brought to the hospital for medical evaluation. Allergies Anesthetics - Amide Type - Select A [Anesthetics - Amide Type] Allergy (Verified 09/12/22 22:20) Itching/Hives/Rash iodine Allergy (Verified 09/12/22 22:20) Itching/Hives/Rash adhesive Adverse Reaction (Verified 09/12/22 22:20) Itching/Hives/Rash Home Medications: Insulin 70/30 NPH/Reg Human [Novolin 70/30*] 20 unit SQ DAILY WITH BREAKFAST 09/09/18 Insulin 70/30 NPH/Reg Human [Novolin 70/30*] 30 unit SQ DAILY AT SUPPER 09/09/18 lisinopriL [Lisinopril] 20 mg PO DAILY 09/09/18 Ergocalciferol (Vitamin D2) [Vitamin D2] 50,000 unit PO SEECOM 11/30/19 Albuterol Inhaler [Ventolin Inhaler*] 2 puff IH Q6H PRN 11/26/20 Atorvastatin Calcium 40 mg PO DAILY 11/26/20 Fluticasone/Vilanterol [Breo Ellipta 200-25 Mcg INH] 1 each IH DAILY 11/26/20 glipiZIDE [Glipizide] 5 mg PO BID 11/26/20 Amox/Clavulanate [Augmentin 875-125 Tab] 1 each PO BID #10 tab 11/27/20 Codeine/APAP [Tylenol W/Codeine #3 tab] 1 tab PO Q6HP PRN #20 tab 11/27/20 - Past Medical/Surgical History Diabetic: Yes -: Small-cell lung cancer with brain metastasis -: History of brain surgery -: Chronic right inguinal hernia -: Diabetes mellitus type 2, insulin-dependent -: Hypertension -: Hyperlipidemia -: Chronic renal disease, stage IV -: Feeding Tube & reversal -: IVC Filter -: Tracheostomy& reversal -: hernia repair -: lobectomy Psychosocial/ Personal History: Patient is . He has 4 children - Social History Smoking Status: Former smoker Alcohol use: No CD- Drugs: No Caffeine use: Yes Place of Residence: Home Review of Systems General: Unremarkable Eyes: Unremarkable ENT: Unremarkable Respiratory: Unremarkable Cardiovascular: Light Headedness Gastrointestinal: Unremarkable Genitourinary: Unremarkable Musculoskeletal: Neck Pain, Back Pain, Leg Pain Integumentary: Unremarkable Neurological: Other ([place], dizziness and lightheadedness ) Lymphatics: Unremarkable Physical Examination - Physical Exam General: Alert, In no apparent distress, Oriented x3, Cooperative HEENT: Atraumatic, PERRLA, Mucous membr. moist/pink, EOMI, Sclerae nonicteric Neck: Supple, 2+ carotid pulse no bruit, No LAD, Without JVD or thyroid abnormality Respiratory: Clear to auscultation bilaterally, Normal air movement Cardiovascular: No edema, Regular rate/rhythm, Normal S1 S2 Capillary refill: <2 Seconds Gastrointestinal: Normal bowel sounds, No tenderness Musculoskeletal: No clubbing, Tenderness Integumentary: No rashes, No significant lesion Neurological: Normal gait, Normal speech, Normal strength at 5/5 x4 extr, Normal tone, Normal affect Lymphatics: No axilla or inguinal lymphadenopathy - Studies Laboratory Data (last 24 hrs) 09/12/22 12:48: Sodium 134 L, Potassium 5.0 D, BUN 30 H, Creatinine 2.71 H, Glucose 410 H*, Total Bilirubin 0.4, AST 22, ALT 94 H, Alkaline Phosphatase 194 H D, Lipase 60 09/12/22 12:48: WBC 13.90 H, Hgb 15.3, Hct 46.0, Plt Count 222 Assessment and Plan - Plan --Low back pain. MRI lumbar pending for further evaluation. Will manage pain with current pain medication. Continue Flexeril. --Intractable headache. MRI brain unremarkable for any acute intracranial abnormality. Neurology was consulted. Continue steroids and Fioricet. Will await further recommendation from neurologist. --Cervicalgia with radiculopathy. MRI cervical spine indicates "Mild midcervical spondylosis is present. No acute finding demonstrated". Continue current treatment regimen. --JAVIER on CKD 3B. Nephrology consulted. We will await further recommendations. --DM2 with hyperglycemia. BS monitoring with sliding scale insulin, Premeal insulin and NPH. --History of small cell lung cancer with brain mets. Patient had brain tumor removal surgery in 2017. Current status unknown. Continue supportive care. --Leukocytosis. Likely reactive. We will continue to monitor WBC levels. -- Hypertension. Stable. Continue home medications. --Hyperlipidemia. Continue statin. -- Class II obesity. Likely secondary to excess calories intake. Patient counseled on weight reduction, diet and excise therapy. --DVT prophylaxis with Lovenox subQ. Discharge Plan: Home Plan to discharge in: 48 Hours - Advance Directives Does patient have a Living Will: No Does patient have a Durable POA for Healthcare: No - Code Status/Comfort Care Code Status Assessed: Yes Physician Review: Patient Assessed, Agree with Above Assessment and Plan Critical Care: No
[2022-09-12] MEDS: INSULIN -REGULAR HUMAN 50 UNIT/0.5 ML ML SQ SCH ×2 (17:30→21:03)
[2022-09-12] MEDS: dexAMETHasone 4 MG/ML VIAL IV SCH (17:30)
[2022-09-12] MEDS: INSULIN LISPRO 100 UNIT/1 ML SQ SCH (17:30)
[2022-09-12] MEDS ORDERED: HYDROCODONE/APAP 10/325 TAB ONE (17:38)
[2022-09-12 19:11] VITALS: O2SAT 99
[2022-09-12 19:30] LABS: Magnesium 1.7 mg/dL (1.6-2.4); Phosphorus 2.6 mg/dL (2.5-4.9); Thyroid Stimulating Hormone 0.485 uIU/mL (0.358-3.740)
[2022-09-12] MEDS: INSULIN 70/30 100 UNITS/ML SQ SCH (21:04)
[2022-09-12] MEDS: ENOXAPARIN 40 MG/0.4 ML SQ SCH (21:17)
[2022-09-12] MEDS ORDERED: MORPHINE 2 MG/ML SYR IV ONE (21:23)
[2022-09-12] MEDS ORDERED: ACETAMIN/CAFFEINE/BUTALB TAB PO ONE (21:39)
[2022-09-12 22:29] VITALS: BMI 30.7
[2022-09-13] MEDS: dexAMETHasone 4 MG/ML VIAL IV SCH ×2 (00:27→08:20)
[2022-09-13 03:17] LABS: Absolute Lymphocytes (CBC) 1.7 K/uL (0.7-4.9); Hematocrit 45.7 % (39.6-49.0); Lymphocytes % 15.5 % (15.3-44.8); MCV 94.9 fL (80-100); MPV 7.4 fL (7.6-11.3); RBC Red Blood Cell Count 4.81 M/uL (4.33-5.43)
[2022-09-13 03:50] LABS: BUN Blood Urea Nitrogen 30 mg/dL (7-18); Bicarbonate 24 mEq/L (21-32); Glomerular Filtration Rate 30 ml/min (=/>90); Glucose Level 202 mg/dL (74-106); HDL Cholesterol 31 mg/dL (40-60); Sodium Level 137 mEq/L (136-145)
[2022-09-13 03:59] LABS: Potassium 5.1 mEq/L (3.5-5.1)
[2022-09-13 04:11] LABS: LDL, Direct 83 mg/dL (100-129)
[2022-09-13] MEDS ORDERED: INSULIN 70/30 100 UNITS/ML SQ SCH (08:00)
[2022-09-13] MEDS: ASPIRIN 81 MG CHEWABLE TABLET PO SCH (08:20)
[2022-09-13] MEDS: HYDROCODONE/APAP 10/325 TAB PO PRN (08:20)
[2022-09-13] MEDS: ENOXAPARIN 40 MG/0.4 ML SQ SCH (08:21)
[2022-09-13] MEDS: INSULIN -REGULAR HUMAN 50 UNIT/0.5 ML ML SQ SCH ×4 (08:22→20:23)
[2022-09-13] MEDS: INSULIN LISPRO 100 UNIT/1 ML SQ SCH ×3 (08:23→16:16)
[2022-09-13] MEDS: NA CHLORIDE 0.9% 1,000 ML IV SCH ×2 (10:35→23:59)
[2022-09-13] MEDS: FENTANYL CITR 100 MCG/2 ML IV PRN ×3 (10:38→20:08)
--- NOTE | 2022-09-13 11:32 | RAD REPORT ---
EXAM DESCRIPTION: MRI - Lumbar Spine Napoleon Wolfe- 09/13/2022 11:03 am CLINICAL HISTORY: Low Back Pain Back pain, radiculopathy COMPARISON: No comparisons FINDINGS: Vertebral body heights are within normal limits. No aggressive marrow pattern is observed. No fracture is suspected. The conus medullaris terminates at a normal level. No thickening of the cauda equina or clumping of n erve roots seen. L1-2 level: Minimal posterior disc bulge. L2-3 level: Mild posterior disc bulge. L3-4 level: Asymmetric posterior disc bulge to the left foraminal region is present. Mild narrowing o f both exit foramina. L4-5 level: Mild bilateral facet hypertrophy. L5-S1 level: Left foraminal disc bulge is present with large posterior annular fissure. No significan t canal or foraminal stenosis. IMPRESSION: Mild lumbar spondylosis is seen as detailed. No severe canal or foraminal stenosis at an y level.
--- NOTE | 2022-09-13 13:21 | EKG ---
Test Date: 2022-09-12 Test Time: 13:03:04 Arc Cutter Plasma Arc: EUGENIA MEASUREMENT RESULTS: Intervals: Rate: 84 NV: 140 QRSD: 104 QT: 342 QTc: 404 [place]: P: 69 NV: 140 QRS: -35 T: 30 INTERPRETIVE STATEMENTS: Normal sinus rhythm Left axis deviation Nonspecific T wave abnormality Abnormal ECG Compared to ECG 09/11/2022 10:43:23 Left-axis deviation now present T-wave abnormality now present Left anterior fascicular block no longer present Electronically Signed On 09-13-22 13:19:45 CDT by Oscar Monroy
[2022-09-13] MEDS: INSULIN 70/30 100 UNITS/ML SQ SCH (16:32)
[2022-09-13] MEDS ORDERED: SODIUM ZIRCONIUM CYCLOSILICATE 10 GM/PKT PO ONE (18:00)
[2022-09-13] MEDS: TOPIRAMATE 25 MG TAB PO SCH (20:08)
[2022-09-13 20:35] LABS: Potassium 4.4 mEq/L (3.5-5.1)
[2022-09-13] MEDS ORDERED: QUETIAPINE 25 MG TAB PO SCH (21:00)
[2022-09-14] MEDS: FENTANYL CITR 100 MCG/2 ML IV PRN ×2 (00:18→08:14)
--- NOTE | 2022-09-14 02:23 | CON ---
Date of Consultation: 09/13/2022 Chief Complaint: Chronic kidney disease. History Of Present Illness: The patient is a 52-year-old man with past medical history significant f or lung cancer with metastatic disease to the brain. The patient has diabetes mellitus, hypertension , chronic kidney disease stage 3 advancing to stage 4, and hyperlipidemia. He came to the hospital w ith complaint of lower back pain that has been going on for at least 3-4 days. He denies nonsteroida l antiinflammatory medication and denies urinary difficulties. The patient denies lower urinary trac t symptoms. The patient reports neck pain that radiates to entire left side. Patient is undergoing workup for back pain and neck pain. He complains of intractable headache, dizziness and lightheadedn ess. He denies syncope. Denies palpitation or chest pain. He was brought to the emergency room to the hospital for evaluation of generalized weakness, back pain and the weakness of the left side. Review of Systems: Constitutional: Denies fever or chills. Eyes: Denies vision changes. Ears, Nose, Mouth and Throat: Denies sore throat, earache Respiratory: Denies chest pain or palpitation. GI: Denies nausea or vomiting. : Denies dysuria, hematuria. Denies kidney colic. Musculoskeletal: He is complaining of back pain and neck pain radiating to left side and complains o f left-sided weakness. All other systems reviewed are normal and negative. Past Medical History: Diabetes mellitus, small cell lung cancer with brain metastasis, history of br ain surgery, chronic right inguinal hernia, diabetes mellitus type 2, insulin dependent, hypertension , hyperlipidemia, chronic kidney disease stage 3 advancing to stage 4, IVC filter, tracheostomy, leandro ia repair, lobectomy. Social History: Denies alcohol. He is a former smoker. Denies IV drug and he uses caffeine. Physical Examination: General: Patient is awake, alert, follows commands. Eyes: Anicteric sclerae. EOMI. Ears, Nose, Mouth, and Throat: Oral mucosa moist. No pallor. Neck: Supple. No bruits. Lungs: Diminished breath sounds at bases. Heart: S1-S2. Abdomen: Soft. Extremities: No edema. Laboratory Data: Blood work, sodium 134, potassium 5.0, BUN 30, creatinine 2.71, glucose 410, total bilirubin 0.4, lipase 60, hemoglobin 15.3, platelet count is 222,000, WBC 13.9. Impression And Plan: Prerenal azotemia, chronic kidney disease stage 3B, acute kidney injury, nonoli guric, likely secondary to prerenal state and possible acute tubular necrosis. The patient will cont inue adequate hydration. Plan is to check urinalysis and urine protein to creatinine ratio and renal ultrasound. Intractable headache. Avoid nonsteroidal antiinflammatory medication. Patient is undergoing workup and had MRI ordered by primary team. Diabetes mellitus and hyperglycemia. Continue insulin. Avoid metformin. Hyperlipidemia. Continue statin and check CK level to rule out rhabdomyolysis. Cervical radiculopathy. Workup per primary team. EB/MODL Voice ID: [id number] Report ID: [id number]
[2022-09-14 06:24] LABS: Specific Gravity 1.015 (1.005-1.030); Urine Bacteria None Seen /HPF (<20); Urine Bilirubin NEGATIVE (Negative); Urine Blood Negative (Negative); Urine Clarity Clear (Clear); Urine Color Colorless (Yellow); Urine Glucose 4+ (Over) (Negative); Urine Protein 2+ (Negative); Urine RBC <5 /HPF (None Seen); Urine Urobilinogen Normal (Normal)
[2022-09-14 06:30] LABS: Albumin 3.2 g/dL (3.4-5.0); Bilirubin Total 0.2 mg/dL (0.2-1.0); Potassium 4.6 mEq/L (3.5-5.1); Protein, Total 6.6 g/dL (6.4-8.2)
[2022-09-14 06:35] LABS: UR PROTEIN 158.3 mg/dL (<11.9); Urine Protein/Creatinine Ratio 3.1 ratio (<0.15)
--- NOTE | 2022-09-14 07:24 | RAD REPORT ---
EXAM DESCRIPTION: US - Renal Ultrasound-Complete - 09/14/2022 12:06 am CLINICAL HISTORY: ckd josie COMPARISON: Abdomen Exam Limited dated 11/25/2020 FINDINGS: Increased cortical echogenicity of both kidneys. The right kidney measures 9.1 cm. 12 mm right upper pole renal cyst. A 16 mm cyst is present in the i nterpolar aspect. No hydronephrosis. The left kidney measures 10.2 cm. No hydronephrosis, focal mass or perinephric fluid. The urinary bladder is incompletely distended without gross abnormality seen. IMPRESSION: Increased echogenicity of the kidneys bilaterally suggesting medical renal disease. No h ydronephrosis.
[2022-09-14] MEDS: ENOXAPARIN 40 MG/0.4 ML SQ SCH (08:17)
[2022-09-14] MEDS: ASPIRIN 81 MG CHEWABLE TABLET PO SCH (08:18)
[2022-09-14] MEDS: TOPIRAMATE 25 MG TAB PO SCH (08:18)
[2022-09-14] MEDS: INSULIN LISPRO 100 UNIT/1 ML SQ SCH (08:20)
[2022-09-14] MEDS: INSULIN -REGULAR HUMAN 50 UNIT/0.5 ML ML SQ SCH (08:20)
[2022-09-14 08:59] VITALS: BP 121/75; TEMP 98.3
[2022-09-14] MEDS ORDERED: ATORVASTATIN 40 MG TAB PO SCH (20:57)
== END 2022-09-14 11:06 | disposition home or self-care (01) | DRG 552 ==
LOC: ER 11:52 → 2ND 17:08
PROVIDERS: ADMIT Hospitalist; ATTEND Hospitalist
DX: M47.22 Other spondylosis with radiculopathy, cervical region (principal); N17.9 Acute kidney failure, unspecified; C79.31 Secondary malignant neoplasm of brain; N18.4 Chronic kidney disease, stage 4 (severe); I12.9 Hypertensive chronic kidney disease with stage 1 through stage 4 chronic kidney disease, or unspecified chronic kidney disease; E11.22 Type 2 diabetes mellitus with diabetic chronic kidney disease; E11.65 Type 2 diabetes mellitus with hyperglycemia; E78.5 Hyperlipidemia, unspecified; D72.829 Elevated white blood cell count, unspecified; M54.50 Low back pain, unspecified; E66.09 Other obesity due to excess calories; Z93.0 Tracheostomy status; Z79.4 Long term (current) use of insulin; Z88.4 Allergy status to anesthetic agent; Z68.30 Body mass index [BMI] 30.0-30.9, adult; Z79.84 Long term (current) use of oral hypoglycemic drugs; Z87.891 Personal history of nicotine dependence; Z91.048 Other nonmedicinal substance allergy status; Z85.118 Personal history of other malignant neoplasm of bronchus and lung
CPT/HCPCS: 36415; 70551; 72141; 72148; 76770; 80048; 80053; 80061; 81001; 82550; 82570; 82947; 83036; 83690; 83735; 84100; 84156; 84439; 84443; 84484; 85025; 87040; 93005; 96372; 99285; J1100; J1650; J1815; J2270; J2405; J3010; J7030

== ENCOUNTER 2023-01-30 17:54 | Emergency (ER) | payer OTHER ==
[2023-01-30] MEDS ORDERED: NA CHLORIDE 0.9% 500 ML ONE (19:02)
[2023-01-30] MEDS ORDERED: DIAZEPAM 5 MG TABLET ONE (19:02)
[2023-01-30] MEDS ORDERED: HYDROMORPHONE HCL 1 MG/ML INJ ONE (19:02)
[2023-01-30] MEDS ORDERED: ONDANSETRON 4 MG/2 ML VIAL ONE ×2 (19:02→20:40)
[2023-01-30 19:05] LABS: Absolute Lymphocytes (CBC) 3.4 K/uL (0.7-4.9); Hematocrit 45.3 % (39.6-49.0); Lymphocytes % 28.4 % (15.3-44.8); MCV 94.9 fL (80-100); MPV 7.4 fL (7.6-11.3); Platelets 244 thou/uL (152-406); RBC Red Blood Cell Count 4.77 M/uL (4.33-5.43)
[2023-01-30 19:06] LABS: Protime INR 0.91
--- NOTE | 2023-01-30 19:24 | RAD REPORT ---
EXAM DESCRIPTION: RAD - Chest Single View - 01/30/2023 7:14 pm CLINICAL HISTORY: COUGH Chest pain. COMPARISON: Chest Single View dated 09/11/2022; Chest Single View dated 05/12/2022; Chest Single View dated 03/06/2022; Chest Single View dated 08/04/2021 FINDINGS: Portable technique limits examination quality. Interstitial markings are mildly prominent bilaterally. This appears relatively chronic. The heart is normal in size. No displaced fractures. IMPRESSION: No acute intrathoracic process suspected.
[2023-01-30 19:25] LABS: Specific Gravity 1.011 (1.005-1.030); Urine Bacteria <20 /HPF (<20); Urine Bilirubin NEGATIVE (Negative); Urine Blood Trace (Negative); Urine Clarity Clear (Clear); Urine Color Colorless (Yellow); Urine Crystals Unidentified Few /HPF (None Seen); Urine Glucose 4+ (Over) (Negative); Urine Protein 2+ (Negative); Urine RBC <5 /HPF (None Seen); Urine Urobilinogen Normal (Normal); Urine pH 5.5 (5.0-7.0)
--- NOTE | 2023-01-30 19:48 | RAD REPORT ---
EXAM DESCRIPTION: CT - Head C Spine Cap Wo Con - 01/30/2023 7:15 pm CLINICAL HISTORY: Trauma, head and neck injury. Chest, abdomen and pelvis pain. Headache;Pain COMPARISON: No comparisons TECHNIQUE: CT head without contrast. CT cervical spine without contrast with coronal and sagittal reformatted images. CT chest, abdomen and pelvis without contrast with coronal and sagittal reformatted images of the spi ne. All CT scans are performed using dose optimization technique as appropriate and may include automated exposure control or mA/KV adjustment according to patient size. FINDINGS: CT HEAD WITHOUT CONTRAST: No intracranial hemorrhage, hydrocephalus or extra-axial fluid collection. 4 cm area of gliosis note d left occipital lobe. The paranasal sinuses and mastoids are clear. The calvarium is intact. Prior left posterior craniotom y. 10 mm right scalp lipoma. CT CERVICAL SPINE WITHOUT CONTRAST: No fracture or subluxation. The prevertebral soft tissues are normal in thickness. CT CHEST, ABDOMEN, PELVIS WITHOUT CONTRAST: NOTE: Lack of contrast is a significant limitation in the assessment of trauma related findings. Spec ifically, solid organ, vascular and bowel evaluation is significantly limited. The lungs are clear.No pneumothorax or pericardial/pleural fluid. No evidence of intra-abdominal visceral injury, free fluid or free air is seen within the above detai led limitations. Cholecystectomy clips. IVC filter noted. No concerning pelvic findings. Right inguinal surgical clips present. No fractures. IMPRESSION: Negative for acute traumatic findings within the above detailed limitations.
[2023-01-30 20:01] LABS: Bicarbonate 21 mEq/L (21-32); Potassium 4.3 mEq/L (3.5-5.1); Sodium Level 136 mEq/L (136-145)
[2023-01-30 20:02] LABS: BUN Blood Urea Nitrogen 40 mg/dL (7-18); Glomerular Filtration Rate 26 ml/min (=/>90); Glucose Level 320 mg/dL (74-106)
[2023-01-30 20:03] LABS: ALT/SGPT 50 U/L (16-61); AST/SGOT 16 U/L (15-37); Albumin 3.5 g/dL (3.4-5.0); Alkaline Phosphatase 183 U/L (45-117); Bilirubin Direct < 0.1 mg/dL (0-0.2); NT PRO-BNP 72 pg/mL (<125); Protein, Total 7.5 g/dL (6.4-8.2); Troponin High Sensitivity 11.9 (<58.9)
[2023-01-30 20:04] LABS: Lipase 72 U/L (13-75)
--- NOTE | 2023-01-30 20:12 | ER ---
Nurse's Notes [facility] Name: Sanjeev Mcpherson Age: 52 yrs Sex: Male : 1970 Arrival Date: 01/30/2023 Time: 17:54 Bed 6 Private MD: Diagnosis: Headache;Low back pain;Unspecified kidney failure;Type 2 diabetes mellitus with hyperglycemia Presentation: 01/30 18:19 Chief complaint: Patient states: Low back pain, headache and left eye pain. Coronavirus cm10 screen: Vaccine status: Patient reports receiving the 2nd dose of the covid vaccine. Client denies travel out of the [place] in the last 14 days. Ebola Screen: Patient denies travel to an Ebola-affected area in the 21 days before illness onset. No symptoms or risks identified at this time. 18:19 Method Of Arrival: Ambulatory cm10 18:20 Initial Sepsis Screen: Does the patient meet any 2 criteria? No. Patient's initial cm10 sepsis screen is negative. Does the patient have a suspected source of infection? No. Patient's initial sepsis screen is negative. Risk Assessment: Do you want to hurt yourself or someone else? Patient reports no desire to harm self or others. Onset of symptoms was January 30, 2023. 18:20 Acuity: JULIANNE 3 cm10 Triage Assessment: 18:32 Headache History: The patient has had previous headaches and this one is more severe nj1 than previous episodes. 18:32 Pain: Pain began 2-3 days ago. nj1 21:10 General: Appears comfortable. Pain: Also complains of no other associated symptoms. rv Historical: - Allergies: 18:21 Adhesives; tape; cm10 18:21 Anesthetics - Amide Type; cm10 18:21 Iodine; cm10 - PMHx: 18:21 BRAIN TUMOR; Cancer; Diabetes - NIDDM; Hyperlipidemia; Hypertension; Lung Cancer; cm10 - PSHx: 18:21 Brain tumor removed; hernia repair; cm10 - Immunization history:: Adult Immunizations unknown. - Social history:: Smoking status: Patient denies any tobacco usage or history of. - Family history:: not pertinent. Screenin:32 [facility] ED Fall Risk Assessment (Adult) Score/Fall Risk Level 0 - 2 = Low Risk nj1 Oriented to surroundings, Maintained a safe environment, Hourly rounding (assess needs \T\ fall precautionary measures) done. Abuse screen: Denies threats or abuse. Denies injuries from another. Nutritional screening: No deficits noted. Tuberculosis screening: No symptoms or risk factors identified. Assessment: 18:31 General: Appears in no apparent distress. uncomfortable, Behavior is calm, cooperative, nj1 appropriate for age. Pain: Complains of pain in head Pain currently is 10 out of 10 on a pain scale. Quality of pain is described as aching. Neuro: Level of Consciousness is awake, alert, obeys commands, Oriented to person, place, time, situation. Cardiovascular: Patient's skin is warm and dry. Respiratory: Airway is patent Respiratory effort is even, unlabored. 18:45 Reassessment: pt c/o pain in head. Notified ERP. Patient states symptoms have not ld1 improved. 19:24 General: Appears in no apparent distress. comfortable, Behavior is calm, cooperative, km8 appropriate for age. Pain: Complains of pain in head and left eye Pain currently is 4 out of 10 on a pain scale. Quality of pain is described as aching. Neuro: Level of Consciousness is awake, alert, obeys commands, Oriented to person, place, time, situation, Reports headache in left. Cardiovascular: Denies chest pain, shortness of breath, Capillary refill < 3 seconds Patient's skin is warm and dry. Respiratory: Airway is patent Respiratory effort is even, unlabored. Musculoskeletal: Range of motion: intact in all extremities. Vital Signs: 18:19 Pulse 101; Resp 18; Temp 97.8(IR); Pulse Ox 97% on R/A; Weight 89.81 kg; Height 5 ft. 0 cm10 in. ; 18:21 BP 100 / 68; cm10 19:24 Pain 4/10; km8 21:09 BP 107 / 72; Pulse 90; Resp 18; Temp 98; Pulse Ox 99% on R/A; rv 18:19 Body Mass Index 38.67 (89.81 kg, 152.4 cm) cm10 19:24 Pain Scale: Adult km8 Shireen Coma Score: 18:49 Eye Response: spontaneous(4). Motor Response: obeys commands(6). Verbal Response: vanessa oriented(5). Total: 15. 21:10 Eye Response: spontaneous(4). Motor Response: obeys commands(6). Verbal Response: rv oriented(5). Total: 15. ED Course: 17:56 Patient arrived in ED. im 18:21 Triage completed. cm10 18:21 Arm band placed on Patient placed in waiting room. cm10 18:23 David Alberts MD is Attending Physician. vanessa 18:25 Yola Chanel, ДМИТРИЙ is Primary Nurse. nj1 18:33 Patient has correct armband on for positive identification. Bed in low position. Call nj1 light in reach. Adult w/ patient. Provided Education on: call light, fall precautions. 18:36 Inserted saline lock: 20 gauge in right wrist, using aseptic technique. Blood collected.ld1 18:54 Urinalysis w/ reflexes Sent. ld1 19:16 XRAY Chest (1 view) In Process Unspecified. EDMS 19:17 CT Traumagram (Head C Spine CAP wo con) In Process Unspecified. EDMS 19:25 No provider procedures requiring assistance completed. km8 20:11 Ulices Fofana MD is Referral Physician. vanessa 21:10 IV discontinued, intact, bleeding controlled, No redness/swelling at site. Pressure rv dressing applied. Administered Medications: 18:54 Drug: NS 0.9% IV 500 ml IV at bolus once Route: IV; Rate: bolus; Site: right forearm; ld1 18:54 Drug: HYDROmorphone IVP 1 mg IVP once Route: IVP; Site: right forearm; ld1 19:24 Follow up: Pain 4/10 Adult; Response: Pain is decreased km8 18:54 Drug: Ondansetron IVP 4 mg IVP once; over 2 minutes Route: IVP; Site: right forearm; ld1 19:24 Follow up: Response: Pain is decreased km8 18:54 Drug: Diazepam PO 10 mg PO once Route: PO; ld1 19:24 Follow up: Response: Pain is decreased km8 20:32 Drug: Insulin Glargine Sub-Q 30 units Sub-Q once {Co-Signature: rv2 (PIYUSH Virgen, Domenic km8 RN).} Route: Sub-Q; Site: left lower abdomen; 21:09 Follow up: Response: No adverse reaction rv 20:32 Drug: HYDROmorphone IVP 0.5 mg IVP once Route: IVP; Site: right forearm; km8 21:09 Follow up: Response: No adverse reaction rv 20:32 Drug: Ondansetron IVP 4 mg IVP once; over 2 minutes Route: IVP; Site: right forearm; km8 21:09 Follow up: Response: No adverse reaction rv 20:33 Drug: Insulin Regular Human IVP 10 units IVP once {Co-Signature: rv2 (ДМИТРИЙ VirgenII, km8 Domenic CHOE).} Route: IVP; Site: right forearm; 21:09 Follow up: Response: No adverse reaction rv Medication: 19:25 VIS not applicable for this client. km8 Outcome: 20:11 Discharge ordered by . vanessa 21:10 Discharged to home ambulatory, rv 21:10 Condition: good 21:10 Discharge instructions given to patient, Instructed on discharge instructions, follow up and referral plans. medication usage, Demonstrated understanding of instructions, follow-up care, medications, Prescriptions given X 2, 21:10 Patient left the ED. rv Signatures: Dispatcher [employer] EDDavid Valdez MD MD cha Vicente, Ronaldo, RN RN rv Alison Connor RN RN ld1 Yola Chanel RN RN nj1 Kathia Toussaint Clarissa RN RN cm10 Savana Tucker RN RN km8 PIYUSH Virgen, Domenic CHOE rv2
--- NOTE | 2023-01-30 20:12 | EDPHYS ---
Physician Documentation [facility] Name: Sanjeev Mcpherson Age: 52 yrs Sex: Male : 1970 Arrival Date: 01/30/2023 Time: 17:54 Bed 6 Private MD: David Coronado HPI: 01/30 18:45 This 52 yrs old Male presents to ER via Ambulatory with complaints of Low Back vanessa Pain, Headache. 18:45 The patient presents with pain that is acute, with no known mechanism of injury. The vanessa symptoms are located in the low back. The pain does not radiate. The problem was sustained from unknown cause. 18:45 Onset: The symptoms/episode began/occurred 2 day(s) ago. Modifying factors: The patient vanessa symptoms are alleviated by nothing, the patient symptoms are aggravated by nothing. Associated signs and symptoms: The patient has no apparent associated signs or symptoms. The patient complains of pain to the top of head, forehead, left frontal area, left side of the back of head, right frontal area, right side of the back of head, right occipital area and right base of the skull. The patient describes the headache as aching, constant. Onset: The symptoms/episode began/occurred 2 day(s) ago. Associated signs and symptoms: Pertinent positives: weakness. Severity of symptoms: At its worst the pain was moderate, severe, in the emergency department the pain is unchanged. Headache History: The patient has had previous headaches and this one is similar to previous episodes. Severity of symptoms: At their worst the symptoms were moderate, in the emergency department the symptoms are unchanged. The symptoms are alleviated by nothing. the symptoms are aggravated by nothing. The patient has experienced similar episodes in the past, several times. Historical: - Allergies: 18:21 Adhesives; tape; cm10 18:21 Anesthetics - Amide Type; cm10 18:21 Iodine; cm10 - PMHx: 18:21 BRAIN TUMOR; Cancer; Diabetes - NIDDM; Hyperlipidemia; Hypertension; Lung Cancer; cm10 - PSHx: 18:21 Brain tumor removed; hernia repair; cm10 - Immunization history:: Adult Immunizations unknown. - Social history:: Smoking status: Patient denies any tobacco usage or history of. - Family history:: not pertinent. ROS: 18:45 Constitutional: Negative for fever, chills, and weight loss, Eyes: Negative for injury, vanessa pain, redness, and discharge, ENT: Negative for injury, pain, and discharge, Neck: Negative for injury, pain, and swelling, Cardiovascular: Negative for chest pain, palpitations, and edema, Respiratory: Negative for shortness of breath, cough, wheezing, and pleuritic chest pain, Abdomen/GI: Negative for abdominal pain, nausea, vomiting, diarrhea, and constipation, : Negative for injury, bleeding, discharge, and swelling, MS/Extremity: Negative for injury and deformity, Skin: Negative for injury, rash, and discoloration, Psych: Negative for depression, anxiety, suicide ideation, homicidal ideation, and hallucinations, Allergy/Immunology: Negative for hives, rash, and allergies, Endocrine: Negative for neck swelling, polydipsia, polyuria, polyphagia, and marked weight changes, 18:45 Back: Positive for decreased range of motion, pain at rest, of the lumbar area, 18:45 Neuro: Positive for headache, Exam: 18:45 Constitutional: This is a well developed, well nourished patient who is awake, alert, vanessa and in no acute distress. Head/Face: Normocephalic, atraumatic. Eyes: Pupils equal round and reactive to light, extra-ocular motions intact. Lids and lashes normal. Conjunctiva and sclera are non-icteric and not injected. Cornea within normal limits. Periorbital areas with no swelling, redness, or edema. ENT: Nares patent. No nasal discharge, no septal abnormalities noted. Tympanic membranes are normal and external auditory canals are clear. Oropharynx with no redness, swelling, or masses, exudates, or evidence of obstruction, uvula midline. Mucous membranes moist. Neck: Trachea midline, no thyromegaly or masses palpated, and no cervical lymphadenopathy. Supple, full range of motion without nuchal rigidity, or vertebral point tenderness. No Meningismus. Chest/axilla: Normal chest wall appearance and motion. Nontender with no deformity. No lesions are appreciated. Cardiovascular: Regular rate and rhythm with a normal S1 and S2. No gallops, murmurs, or rubs. Normal PMI, no JVD. No pulse deficits. Respiratory: Lungs have equal breath sounds bilaterally, clear to auscultation and percussion. No rales, rhonchi or wheezes noted. No increased work of breathing, no retractions or nasal flaring. Abdomen/GI: Soft, non-tender, with normal bowel sounds. No distension or tympany. No guarding or rebound. No evidence of tenderness throughout. Male : Normal genitalia with no discharge or lesions. Skin: Warm, dry with normal turgor. Normal color with no rashes, no lesions, and no evidence of cellulitis. MS/ Extremity: Pulses equal, no cyanosis. Neurovascular intact. Full, normal range of motion. Psych: Awake, alert, with orientation to person, place and time. Behavior, mood, and affect are within normal limits. 18:45 Back: pain, that is moderate, ROM is painful, normal spinal alignment noted, CVA tenderness, is absent, vertebral tenderness, is not appreciated, muscle spasm, is not present, 18:45 Neuro: Orientation: is normal, appropriate for stated age, no acute changes, Mentation: is normal, appropriate for stated age, no acute changes, Memory: is normal, appropriate for stated age, no acute changes, Cranial nerves: grossly normal, is grossly normal based on the patient's age, no acute changes, Cerebellar function: is grossly normal, is grossly normal based on the patient's age, no acute changes, Motor: moves all fours, Sensation: is normal, no obvious gross deficits, appropriate no acute changes, Gait: not tested. Babinski testing is normal, seizure activity, is not displayed by the patient, Vital Signs: 18:19 Pulse 101; Resp 18; Temp 97.8(IR); Pulse Ox 97% on R/A; Weight 89.81 kg; Height 5 ft. 0 cm10 in. ; 18:21 BP 100 / 68; cm10 19:24 Pain 4/10; km8 21:09 BP 107 / 72; Pulse 90; Resp 18; Temp 98; Pulse Ox 99% on R/A; rv 18:19 Body Mass Index 38.67 (89.81 kg, 152.4 cm) cm10 19:24 Pain Scale: Adult km8 Bixby Coma Score: 18:49 Eye Response: spontaneous(4). Motor Response: obeys commands(6). Verbal Response: vanessa oriented(5). Total: 15. 21:10 Eye Response: spontaneous(4). Motor Response: obeys commands(6). Verbal Response: rv oriented(5). Total: 15. MDM: 18:23 Patient medically screened. vanessa 18:49 Differential diagnosis: arthritis, sciatica, Herniated disc UTI, cluster headache, vanessa cerebral vascular accident, epidural hematoma. Data reviewed: vital signs, nurses notes, lab test result(s), EKG, radiologic studies, CT scan, plain films. Consideration of Admission/Observation Escalation of care including admission/observation considered. I considered the following discharge prescriptions or medication management in the emergency department Medications were administered in the Emergency Department. See MAR. Independent interpretation of the following test(s) in the Emergency Department EKG: See my EKG interpretation above. Test considered but Not performed: MRI: no brain mri. Historians other than the Patient: Spouse/Significant Other: well informed. Care significantly affected by the following chronic conditions: Diabetes, Hypertension, Obesity, Cancer, Chronic Kidney Disease, brain and lung cancer. 01/30 18:43 Order name: Basic Metabolic Panel [facility] 01/30 18:43 Order name: CBC with Diff; Complete Time: 19:39 [facility] 01/30 18:43 Order name: LFT's [facility] 01/30 18:43 Order name: Magnesium [facility] 01/30 18:43 Order name: NT PRO-BNP [facility] 01/30 18:43 Order name: PT-INR; Complete Time: 19:39 [facility] 01/30 18:43 Order name: Troponin HS [facility] 01/30 18:43 Order name: Lipase [facility] 01/30 18:43 Order name: Urinalysis w/ reflexes; Complete Time: 19:39 [facility] 01/30 18:43 Order name: XRAY Chest (1 view); Complete Time: 19:39 [facility] 01/30 18:52 Order name: CT Traumagram (Head C Spine CAP wo con); Complete Time: 19:52 [facility] 01/30 18:43 Order name: EKG; Complete Time: 18:44 [facility] 01/30 18:43 Order name: Cardiac monitoring; Complete Time: 19:21 [facility] 01/30 18:43 Order name: EKG - Nurse/Tech; Complete Time: 19:38 [facility] 01/30 18:43 Order name: IV Saline Lock; Complete Time: 18:54 [facility] 01/30 18:43 Order name: Labs collected and sent; Complete Time: 18:54 vanessa 01/30 18:43 Order name: O2 Per Protocol; Complete Time: 18:54 [facility] 01/30 18:43 Order name: O2 Sat Monitoring; Complete Time: 18:54 vanessa Administered Medications: 18:54 Drug: NS 0.9% IV 500 ml IV at bolus once Route: IV; Rate: bolus; Site: right forearm; ld1 18:54 Drug: HYDROmorphone IVP 1 mg IVP once Route: IVP; Site: right forearm; ld1 19:24 Follow up: Pain 4/10 Adult; Response: Pain is decreased km8 18:54 Drug: Ondansetron IVP 4 mg IVP once; over 2 minutes Route: IVP; Site: right forearm; ld1 19:24 Follow up: Response: Pain is decreased km8 18:54 Drug: Diazepam PO 10 mg PO once Route: PO; ld1 19:24 Follow up: Response: Pain is decreased km8 20:32 Drug: Insulin Glargine Sub-Q 30 units Sub-Q once {Co-Signature: rv2 (ДМИТРИЙ VirgenII, Domenic engle RN).} Route: Sub-Q; Site: left lower abdomen; 21:09 Follow up: Response: No adverse reaction rv 20:32 Drug: HYDROmorphone IVP 0.5 mg IVP once Route: IVP; Site: right forearm; km8 21:09 Follow up: Response: No adverse reaction rv 20:32 Drug: Ondansetron IVP 4 mg IVP once; over 2 minutes Route: IVP; Site: right forearm; km8 21:09 Follow up: Response: No adverse reaction rv 20:33 Drug: Insulin Regular Human IVP 10 units IVP once {Co-Signature: rv2 (PIYUSH Virgen, kadie Sheth RN).} Route: IVP; Site: right forearm; 21:09 Follow up: Response: No adverse reaction rv Disposition Summary: 01/30/23 20:11 Discharge Ordered Notes: Location: Home vanessa Problem: new vanessa Symptoms: have improved vanessa Condition: Stable vanessa Diagnosis - Headache vanessa - Low back pain vanessa - Unspecified kidney failure vanessa - Type 2 diabetes mellitus with hyperglycemia vanessa Followup: vanessa - With: Private Physician - When: 2 - 3 days - Reason: Recheck today's complaints, Continuance of care, Re-evaluation by your physician Followup: vanessa - With: Ulices Fofana MD - When: 2 - 3 days - Reason: Recheck today's complaints, Re-evaluation by your physician Discharge Instructions: - Discharge Summary Sheet vanessa - Acute Back Pain, Adult vanessa - Chronic Back Pain vanessa - General Headache Without Cause vanessa - Hyperglycemia vanessa - Musculoskeletal Pain vanessa - Diabetes Mellitus and Nutrition, Adult vanessa - Chronic Kidney Disease, Adult, [id number] vanessa - General Headache Without Cause, [id number] [facility] Forms: - Medication Reconciliation Form vanessa - Thank You Letter vanessa - Antibiotic Education vanessa - Prescription Opioid Use vanessa - Patient Portal Instructions vanessa - Leadership Thank You Letter vanessa Prescriptions: - acetaminophen-codeine 300-30 mg Oral tablet - take 2 tablet ORAL route every 6 hours as needed for pain; 20 tablet; Refills: vanessa 0, Product Selection Permitted - ondansetron 4 mg Oral Tablet,disintegrating - take 1 tablet ORAL route every 6-8 hours for 5 days; 20 tablet; Refills: 0, vanessa Product Selection Permitted Signatures: Dispatcher [employer] EDMS David Alberts MD MD cha Sims, Lauren RN RN ld1 Leydi Tobias RN RN cm10 Savana Tucker RN RN km8 Inocencio Virgen RN rv Param, ДМИТРИЙII, Domenic RN rv2 Corrections: (The following items were deleted from the chart) 18:56 18:44 Head Brain Wo Cont+CT.RAD.BRZ ordered. EDMS EDMS 18:56 18:44 Stone Protocol+CT.RAD.BRZ ordered. EDMS EDMS
[2023-01-30 20:24] LABS: Bilirubin Indirect, Calculated ND mg/dL (0.2-0.8); Bilirubin Total 0.2 mg/dL (0.2-1.0)
[2023-01-30] MEDS ORDERED: INSULIN GLARGINE 100 UNIT/ML SQ ONE (20:39)
[2023-01-30] MEDS ORDERED: INSULIN REGULAR (HUMAN) 100 UNIT/ML ONE (20:40)
[2023-01-30] MEDS ORDERED: HYDROMORPHONE HCL 0.5 MG/0.5 ML INJ ONE (20:40)
[2023-01-31 01:31] VITALS: BP 107/72; TEMP 98; O2SAT 99
== END 2023-01-30 21:10 | disposition home or self-care (01) ==
LOC: ER 17:54
DX: R51.9 Headache, unspecified (principal); M54.50 Low back pain, unspecified; E11.65 Type 2 diabetes mellitus with hyperglycemia; N19 Unspecified kidney failure; I10 Essential (primary) hypertension; Z85.118 Personal history of other malignant neoplasm of bronchus and lung; Z88.4 Allergy status to anesthetic agent; Z88.8 Allergy status to other drugs, medicaments and biological substances; Z91.048 Other nonmedicinal substance allergy status
CPT/HCPCS: 85025; 81001; 80048; 36415; 83735; 85610; 82947; 80076; 84484; 83690; 83880; 70450; 71250; 72125; 71045; J1815; J1170 ×2; J2405 ×2; J7040; 93005

== ENCOUNTER → 2023-04-14 | Emergency (ER) | payer OTHER ==
[~2023-04-14] MED LIST: DIPHENHYDRAMINE 50 MG/ML VIAL ONE; KETOROLAC 30 MG/ML INJ ONE; METOCLOPRAMIDE 10 MG/2mL INJ ONE; NA CHLORIDE 0.9% 1,000 ML ONE; dexAMETHasone 10 MG/ML VIAL ONE
--- NOTE | 2023-04-14 19:58 | RAD REPORT ---
EXAM DESCRIPTION: CT - Head Brain Wo Cont - 04/14/2023 7:44 pm CLINICAL HISTORY: Headache COMPARISON: January 2023 TECHNIQUE: Computed axial tomography of the head was obtained. IV contrast was not requested. All CT scans are performed using dose optimization technique as appropriate and may include automated exposure control or mA/KV adjustment according to patient size. FINDINGS: A left craniotomy. Left occipital cystic mass with mild nodularity inferiorly unchanged. T he nodularity which showing on a recent outside MRI with contrast to represent enhancement No intracranial bleed The ventricles are normal in caliber No extra-axial fluid collection is noted. Right frontal scalp lipoma Fluid within the sinuses/ mastoids is not seen. IMPRESSION: Left occipital cystic mass with mild nodularity inferiorly unchanged
[2023-04-14 20:09] LABS: Absolute Lymphocytes (CBC) 2.7 K/uL (0.7-4.9); Hematocrit 39.7 % (39.6-49.0); Lymphocytes % 31.1 % (15.3-44.8); MCV 94.4 fL (80-100); MPV 7.1 fL (7.6-11.3); Platelets 254 thou/uL (152-406)
[2023-04-14 20:26] LABS: Albumin 3.5 g/dL (3.4-5.0); Bilirubin Total 0.3 mg/dL (0.2-1.0); Potassium 4.1 mEq/L (3.5-5.1); Protein, Total 7.3 g/dL (6.4-8.2)
--- NOTE | 2023-04-14 21:11 | ER ---
Nurse's Notes [facility] Name: Sanjeev Mcpherson Age: 52 yrs Sex: Male : 1970 Arrival Date: 04/14/2023 Time: 18:56 Bed DX1 Private MD: Diagnosis: Headache Presentation: 04/14 19:09 Chief complaint: Patient states: Bad headache. Had a MRI on Mar 21. Coronavirus vc1 screen: At this time, the client does not indicate any symptoms associated with coronavirus-19. Ebola Screen: Patient negative for fever greater than or equal to 101.5 degrees Fahrenheit, and additional compatible Ebola Virus Disease symptoms Patient denies exposure to infectious person. Patient denies travel to an Ebola-affected area in the 21 days before illness onset. No symptoms or risks identified at this time. Risk Assessment: Do you want to hurt yourself or someone else? Patient reports no desire to harm self or others. Note Hx of brain mass. Onset of symptoms is unknown. 19:09 Method Of Arrival: Ambulatory vc1 19:09 Acuity: JULIANNE 3 vc1 19:14 Initial Sepsis Screen: Does the patient have a suspected source of infection? No. vc1 Patient's initial sepsis screen is negative. Initial Sepsis Screen: Does the patient meet any 2 criteria? HR > 90 bpm. No. Patient's initial sepsis screen is negative. Triage Assessment: 19:11 General: Appears in no apparent distress. uncomfortable, Behavior is calm, cooperative, vc1 appropriate for age. Pain: Complains of pain in top of head and forehead Pain does not radiate. Pain currently is 10 out of 10 on a pain scale. Quality of pain is described as pressure, Pain began last 3-4 months Is continuous, Noted to be grimacing. EENT: No deficits noted. No signs and/or symptoms were reported regarding the EENT system. Neuro: Level of Consciousness is awake, alert, obeys commands, Oriented to person, place, time, situation, Appropriate for age Speech is normal, Facial symmetry appears normal. Neuro: Reports headache frontal area, since for the last 3-4 months photophobia. Cardiovascular: No deficits noted. Respiratory: Airway is patent Respiratory effort is even, unlabored, Respiratory pattern is regular, symmetrical. GI: No deficits noted. No signs and/or symptoms were reported involving the gastrointestinal system. : No deficits noted. No signs and/or symptoms were reported regarding the genitourinary system. Derm: No deficits noted. No signs and/or symptoms reported regarding the dermatologic system. Musculoskeletal: No deficits noted. No signs and/or symptoms reported regarding the musculoskeletal system. Historical: - Allergies: 19:11 Adhesives; tape; vc1 19:11 Anesthetics - Amide Type; vc1 19:11 Iodine; vc1 - PMHx: 19:11 BRAIN TUMOR; Cancer; Diabetes - NIDDM; Hyperlipidemia; Hypertension; Lung Cancer; vc1 - PSHx: 19:11 Brain tumor removed; hernia repair; vc1 - Immunization history:: Client reports receiving the 2nd dose of the Covid vaccine, Flu vaccine is not up to date. It has been more than one year since last vaccine. - Social history:: Smoking status: Patient denies any tobacco usage or history of. Screenin:34 [facility] ED Fall Risk Assessment (Adult) History of falling in the last 3 months, as6 including since admission No falls in past 3 months (0 pts). Abuse screen: Denies threats or abuse. Denies injuries from another. Nutritional screening: No deficits noted. Tuberculosis screening: No symptoms or risk factors identified. Assessment: 21:34 General: SEE TRIAGE NOTE. as6 Vital Signs: 19:14 BP 105 / 74; Pulse 103; Resp 18; Temp 98.6; Pulse Ox 97% ; Weight 89.81 kg; Height 5 vc1 ft. 0 in. ; Pain 10/10; 21:34 BP 115 / 69; Pulse 91; Resp 16; Pulse Ox 98% ; as6 19:14 Body Mass Index 38.67 (89.81 kg, 152.4 cm) vc1 19:14 Pain Scale: Adult vc1 ED Course: 19:00 Patient arrived in ED. kj1 19:09 Clinton Gaston MD is Attending Physician. ec2 19:10 Triage completed. vc1 19:13 Arm band placed on right wrist. vc1 19:45 CT Head Brain wo Cont In Process Unspecified. EDMS 20:01 CMP Sent. kmf 20:01 CBC with Diff Sent. kmf 20:02 Inserted saline lock: 22 gauge in left hand, using aseptic technique. Blood collected. kmf 21:33 Bishop Snyder, ДМИТРИЙ is Primary Nurse. as6 21:34 Patient has correct armband on for positive identification. as6 21:34 No provider procedures requiring assistance completed. IV discontinued, intact, as6 bleeding controlled, No redness/swelling at site. Pressure dressing applied. 21:36 Provided Education on: N/A. as6 Administered Medications: 20:24 Drug: metoCLOPramide IVP 10 mg IVP once; over 1 to 2 minutes Route: IVP; Site: left as6 hand; 21:37 Follow up: Response: No adverse reaction as6 20:24 Drug: diphenhydrAMINE IVP 50 mg IVP once Route: IVP; Site: left hand; as6 21:37 Follow up: Response: No adverse reaction as6 20:25 Drug: NS 0.9% IV 1000 ml IV at 1 bolus Per protocol; 1000 mL bolus Route: IV; Rate: 1 as6 bolus; Site: left hand; 21:36 Follow up: IV Status: Completed infusion; IV Intake: 1000ml as6 20:25 Drug: Decadron - Dexamethasone IVP 10 mg IVP once Route: IVP; Site: left hand; as6 21:37 Follow up: Response: No adverse reaction as6 20:25 Drug: Ketorolac IVP 15 mg IVP once Route: IVP; Site: left hand; as6 21:37 Follow up: Response: No adverse reaction as6 Intake: 21:36 IV: 1000ml; Total: 1000ml. as6 Outcome: 21:11 Discharge ordered by . ec2 21:34 Discharged to home ambulatory, as6 21:34 Condition: stable 21:34 Discharge instructions given to patient, Instructed on discharge instructions, follow up and referral plans. Demonstrated understanding of instructions, follow-up care, 21:38 Patient left the ED. as6 Signatures: Dispatcher [employer] Loulou Dodd kj1 Bishop Snyder RN RN as6 Josselin Lloyd RN RN 1 Clinton Gaston MD MD ec2 Shonda Malagon [facility]
--- NOTE | 2023-04-14 21:11 | EDPHYS ---
Physician Documentation [facility] Name: Sanjeev Mcpherson Age: 52 yrs Sex: Male : 1970 Arrival Date: 04/14/2023 Time: 18:56 Bed DX1 Private MD: ED Physician Clinton Gaston HPI: 04/14 19:17 This 52 yrs old Male presents to ER via Ambulatory with complaints of ec2 Weakness, Headache. 19:17 Patient arrives today for evaluation of HANKS. Patient reports that he has been having ec2 headache for the past 3 to 4 months. Patient reports that he has tried sumatriptan and topiramate with minimal alleviation in symptoms. Patient with history of brain mass, history of brain mass recurrence. Patient with schedule appointment to see his brain mass Tomorrow at 130. No fevers or chills, nausea or vomiting.. Historical: - Allergies: 19:11 Adhesives; tape; vc1 19:11 Anesthetics - Amide Type; vc1 19:11 Iodine; vc1 - PMHx: 19:11 BRAIN TUMOR; Cancer; Diabetes - NIDDM; Hyperlipidemia; Hypertension; Lung Cancer; vc1 - PSHx: 19:11 Brain tumor removed; hernia repair; vc1 - Immunization history:: Client reports receiving the 2nd dose of the Covid vaccine, Flu vaccine is not up to date. It has been more than one year since last vaccine. - Social history:: Smoking status: Patient denies any tobacco usage or history of. ROS: 19:17 Constitutional: as per hpi ec2 Exam: 19:17 Constitutional: GEN: NAD Head: atraumatic Eyes: EOMI Ears: External ears are ec2 normal. CV: regular rate LUNGS: no respiratory distress ABD: non-distended SKIN: no evidence of rashes MSK: no evidence of trauma NEURO: moves all extremities equally, cranial nerves II through XII intact, strength intact all 4 extremities. Vital Signs: 19:14 BP 105 / 74; Pulse 103; Resp 18; Temp 98.6; Pulse Ox 97% ; Weight 89.81 kg; Height 5 vc1 ft. 0 in. ; Pain 10/10; 21:34 BP 115 / 69; Pulse 91; Resp 16; Pulse Ox 98% ; as6 19:14 Body Mass Index 38.67 (89.81 kg, 152.4 cm) vc1 19:14 Pain Scale: Adult vc1 MDM: 19:09 Patient medically screened. ec2 19:17 Data reviewed: vital signs. ED course: Patient arrives today for evaluation of ec2 headache. Examination remarkable for neuro intact individual is otherwise in no acute distress. Will obtain lab work, imaging and treat the patient's symptoms. Suspect patient's chronic headache causing symptoms, possible worsening mass with surrounding vasogenic edema, less return for meningitis, low suspicion for infectious process given the patient's lack of infectious complaints.. 20:00 ED course: CT the scan of the head shows no acute intracranial process.. ec2 21:07 ED course: CBC reassuring, metabolic profile shows renal dysfunction with a creatinine ec2 of 3.16 and GFR of 23. . 21:07 ED course: When compared to external records, patient with baseline CKD, most recent ec2 creatinine 2.8, patient without JAVIER today.. 04/14 19:16 Order name: CBC with Diff; Complete Time: 21:07 ec2 04/14 19:16 Order name: CMP; Complete Time: 21:07 ec2 04/14 19:16 Order name: CT Head Brain wo Cont; Complete Time: 20:00 ec2 Administered Medications: 20:24 Drug: metoCLOPramide IVP 10 mg IVP once; over 1 to 2 minutes Route: IVP; Site: left as6 hand; 21:37 Follow up: Response: No adverse reaction as6 20:24 Drug: diphenhydrAMINE IVP 50 mg IVP once Route: IVP; Site: left hand; as6 21:37 Follow up: Response: No adverse reaction as6 20:25 Drug: NS 0.9% IV 1000 ml IV at 1 bolus Per protocol; 1000 mL bolus Route: IV; Rate: 1 as6 bolus; Site: left hand; 21:36 Follow up: IV Status: Completed infusion; IV Intake: 1000ml as6 20:25 Drug: Decadron - Dexamethasone IVP 10 mg IVP once Route: IVP; Site: left hand; as6 21:37 Follow up: Response: No adverse reaction as6 20:25 Drug: Ketorolac IVP 15 mg IVP once Route: IVP; Site: left hand; as6 21:37 Follow up: Response: No adverse reaction as6 Disposition Summary: 04/14/23 21:11 Discharge Ordered Notes: Location: Home ec2 Condition: Stable ec2 Diagnosis - Headache ec2 Followup: ec2 - With: Private Physician - When: - Reason: Re-evaluation by your physician Discharge Instructions: - Discharge Summary Sheet ec2 - General Headache Without Cause ec2 Forms: - Medication Reconciliation Form ec2 - Thank You Letter ec2 - Antibiotic Education ec2 - Prescription Opioid Use ec2 - Patient Portal Instructions ec2 - Leadership Thank You Letter ec2 Signatures: Dispatcher [employer] Bishop Rasmussen RN RN as6 Josselin Lloyd RN RN vc1 Clinton Gaston MD MD ec2
[2023-04-14 23:17] VITALS: BP 105/74; TEMP 98.6; O2SAT 97
== END ==
LOC: ER 18:56
DX: R51.9 Headache, unspecified (principal); R53.1 Weakness; E11.9 Type 2 diabetes mellitus without complications; I10 Essential (primary) hypertension; Z85.841 Personal history of malignant neoplasm of brain; Z85.118 Personal history of other malignant neoplasm of bronchus and lung; Z88.4 Allergy status to anesthetic agent; Z91.048 Other nonmedicinal substance allergy status
CPT/HCPCS: 85025; 36415; 80053; 70450; J2765; J1200; J1100; J7030; 96361; 96374; 96375; 99284

== ENCOUNTER 2023-11-18 07:26 | Emergency (ER) | payer OTHER ==
[2023-11-18] MEDS ORDERED: ACETAMINOPHEN 500 MG TAB ONE (08:24)
--- NOTE | 2023-11-18 08:37 | RAD REPORT ---
EXAMINATION: TWO VIEW CHEST XR CLINICAL INDICATION: Male, 53 years old. [facility] MAIN COUGH Bed Name: TECHNIQUE: 2 view radiographs of the chest were performed. COMPARISON: 09/20/2023 FINDINGS: The lungs are well inflated and clear. No pneumothorax or sizable effusion. The heart is normal in si ze. Mediastinal contours are unremarkable. IMPRESSION: No acute or significant abnormalities.
[2023-11-18 09:15] LABS: SARS-CoV-2 Antigen CONTROL BLUE LINE VIS/BG OK; SARS-CoV-2 Antigen Rapid Res Negative (Negative)
[2023-11-18] MEDS ORDERED: MORPHINE *EXTENDED RELEASE* 15 MG TAB PO ONE (09:30)
--- NOTE | 2023-11-18 10:24 | EDPHYS ---
Physician Documentation [facility] Name: Sanjeev Mcpherson Age: 53 yrs Sex: Male : 1970 Arrival Date: 11/18/2023 Time: 07:26 Bed 20 Private MD: ED Physician Owen Connor HPI: 11/17 07:58 This 53 yrs old Male presents to ER via Ambulatory with complaints of Flu ms3 Symptoms. 07:58 53-year-old male with past medical history of brain cancer, lung cancer, diabetes, ms3 hyperlipidemia, hypertension presents to the emergency department for generalized bodyaches, cough, malaise, headache, chills. Patient states his symptoms began yesterday. Patient has not taken medications prior to arrival in the emergency department.. Historical: - Allergies: 07:34 Iodine; bp 07:34 Anesthetics - Amide Type; bp 07:34 Adhesives; tape; bp - PMHx: 07:34 BRAIN TUMOR; Cancer; Diabetes - NIDDM; Hyperlipidemia; Hypertension; Lung Cancer; bp - PSHx: 07:34 Brain tumor removed; hernia repair; bp - Immunization history:: Adult Immunizations up to date. - Infectious Disease History:: Denies. - Social history:: Smoking status: Patient denies any tobacco usage or history of. ROS: 07:58 Cardiovascular: Negative for chest pain, and palpitations. ms3 07:58 Abdomen/GI: Negative for abdominal pain, nausea, vomiting, diarrhea, and constipation, MS/Extremity: Negative for injury and deformity, Skin: Negative for injury, rash, and discoloration, 07:58 Constitutional: Positive for body aches, chills, 07:58 Respiratory: Positive for cough, 07:58 Neuro: Positive for headache, Exam: 07:58 Constitutional: This is a well developed, well nourished patient who is awake, alert, ms3 and in no acute distress. Head/Face: Normocephalic, atraumatic. Neck: Trachea midline, no cervical lymphadenopathy. Supple, full range of motion without nuchal rigidity, or vertebral point tenderness. No Meningismus. Chest/axilla: Normal chest wall appearance and motion. Nontender with no deformity. Cardiovascular: Regular rate and rhythm with a normal S1 and S2. No gallops, murmurs, or rubs. Normal PMI, no JVD. No pulse deficits. Respiratory: Lungs have equal breath sounds bilaterally, clear to auscultation and percussion. No rales, rhonchi or wheezes noted. No increased work of breathing, no retractions or nasal flaring. Abdomen/GI: Soft, non-tender, with normal bowel sounds. No distension or tympany. No guarding or rebound. No evidence of tenderness throughout. Skin: Warm, dry with normal turgor. Normal color with no rashes, no lesions, and no evidence of cellulitis. MS/ Extremity: Pulses equal, no cyanosis. Neurovascular intact. Full, normal range of motion. Vital Signs: 07:36 BP 132 / 88; Pulse 100; Resp 16; Temp 97.2; Pulse Ox 97% ; bp 09:45 BP 128 / 88; Pulse 95; Resp 18; Pulse Ox 100% on R/A; mb9 MDM: 07:58 Differential Diagnosis: Influenza Upper Respiratory Infection Viral Syndrome Pneumonia. ms3 08:02 Patient medically screened. ms3 18:00 Data reviewed: vital signs, nurses notes, lab test result(s), and as a result, I will ms3 discharge patient. I considered the following discharge prescriptions or medication management in the emergency department Medications were administered in the Emergency Department. See MAR. Independent interpretation of the following test(s) in the Emergency Department X-Ray: My interpretation is Chest x-ray image reviewed by me did not show pneumonia. Counseling: I had a detailed discussion with the patient and/or guardian regarding the historical points, exam findings, and any diagnostic results supporting the discharge/admit diagnosis, lab results, radiology results, the need for outpatient follow up, to return to the emergency department if symptoms worsen or persist or if there are any questions or concerns that arise at home. Special discussion: I discussed with the patient/guardian in detail that at this point there is no indication for admission to the hospital. It is understood, however, that if the symptoms persist or worsen the patient needs to return immediately for re-evaluation. ED course: Discussed labs and chest x-ray findings with patient and his . Patient to follow-up with primary care physician in 2 to 3 days. Patient understands and agrees with plan. All questions were answered. Return precautions discussed include worsening symptoms, or any other concerns. 11/17 07:57 Order name: Flu; Complete Time: 09:48 ms3 11/17 08:32 Order name: SARS RAPID; Complete Time: 09:27 ms3 11/17 07:57 Order name: Chest Pa And Lat (2 Views) XRAY; Complete Time: 08:41 ms3 11/17 07:58 Order name: PO challenge; Complete Time: 08:10 ms3 Administered Medications: 08:28 Drug: Acetaminophen PO 1000 mg PO once Route: PO; iw 09:08 Follow up: Response: Pain is unchanged, physician notified mb9 09:33 Drug: morphine PO 15 mg PO once Route: PO; mb9 10:29 Follow up: Response: No adverse reaction mb9 Disposition Summary: 11/18/23 10:24 Discharge Ordered Notes: Location: Home ms3 Condition: Stable ms3 Diagnosis - Myalgia ms3 - Cough ms3 - Nasal congestion ms3 Followup: ms3 - With: Ramon Harris DO - When: 2 - 3 days - Reason: Recheck today's complaints Discharge Instructions: - Discharge Summary Sheet ms3 - Musculoskeletal Pain ms3 - Cool Mist Vaporizer ms3 - Cough, Adult ms3 Forms: - Medication Reconciliation Form ms3 - Antibiotic Education ms3 - Prescription Opioid Use ms3 - Patient Portal Instructions ms3 - Leadership Thank You Letter ms3 Signatures: Dispatcher [employer] Alma Kang, RN ДМИТРИЙ iw Marcos Reyes RN Owen Gastelum DO DO ms3 Nayeli Sheppard, RN RN mb9 Corrections: (The following items were deleted from the chart) 08:33 08:33 SARS-COV-2 Antigen Rapid+I.LAB.BRZ ordered. EDMS EDMS
--- NOTE | 2023-11-18 10:24 | ER ---
Nurse's Notes [facility] Name: Sanjeev Mcpherson Age: 53 yrs Sex: Male : 1970 Arrival Date: 11/18/2023 Time: 07:26 Bed 20 Private MD: Diagnosis: Myalgia;Cough;Nasal congestion Presentation: 11/17 07:36 Chief complaint: Patient states: COUGH, NASAL CONGESTION AND MYALGIA SINCE YESTERDAY. bp Coronavirus screen: congestion, headache, muscle pain, runny nose. Ebola Screen: No symptoms or risks identified at this time. Initial Sepsis Screen: Does the patient meet any 2 criteria? HR > 90 bpm. No. Patient's initial sepsis screen is negative. Does the patient have a suspected source of infection? No. Patient's initial sepsis screen is negative. Risk Assessment: Do you want to hurt yourself or someone else? Patient reports no desire to harm self or others. Onset of symptoms is unknown. 07:36 Method Of Arrival: Ambulatory bp 07:36 Acuity: JULIANNE 4 bp Triage Assessment: 07:34 General: Appears distressed, Behavior is cooperative, appropriate for age, anxious. bp Pain: Complains of pain in head. EENT: Reports nasal congestion. Neuro: No deficits noted. Cardiovascular: No deficits noted. Respiratory: Reports cough that is. Historical: - Allergies: 07:34 Iodine; bp 07:34 Anesthetics - Amide Type; bp 07:34 Adhesives; tape; bp - PMHx: 07:34 BRAIN TUMOR; Cancer; Diabetes - NIDDM; Hyperlipidemia; Hypertension; Lung Cancer; bp - PSHx: 07:34 Brain tumor removed; hernia repair; bp - Immunization history:: Adult Immunizations up to date. - Infectious Disease History:: Denies. - Social history:: Smoking status: Patient denies any tobacco usage or history of. Screenin:08 [facility] ED Fall Risk Assessment (Adult) History of falling in the last 3 months, mb9 including since admission No falls in past 3 months (0 pts) Confusion or Disorientation No (0 pts) Intoxicated or Sedated No (0 pts) Impaired Gait No (0 pts) Mobility Assist Device Used No (0 pt) Altered Elimination No (0 pt) Score/Fall Risk Level 0 - 2 = Low Risk Oriented to surroundings, Maintained a safe environment, Educated pt \T\ family on fall prevention, incl call for assistance when getting out of bed. Abuse screen: Denies threats or abuse. Nutritional screening: No deficits noted. Tuberculosis screening: No symptoms or risk factors identified. Assessment: 08:33 General: Appears in no apparent distress. Behavior is calm, cooperative. Pain: iw Complains of pain in head, body aches. Neuro: Level of Consciousness is awake, alert, obeys commands, Oriented to person, place, time, situation, Moves all extremities. Full function. Cardiovascular: Patient's skin is warm and dry. Respiratory: Respiratory effort is even, unlabored, Respiratory pattern is regular, symmetrical. GI: Abdomen is non-distended. Derm: Skin is intact. Musculoskeletal: Range of motion: intact in all extremities. Vital Signs: 07:36 BP 132 / 88; Pulse 100; Resp 16; Temp 97.2; Pulse Ox 97% ; bp 09:45 BP 128 / 88; Pulse 95; Resp 18; Pulse Ox 100% on R/A; mb9 ED Course: 07:31 Patient arrived in ED. mg5 07:36 Owen Connor DO is Attending Physician. ms3 07:37 Triage completed. bp 07:37 Arm band placed on. bp 07:48 Alma Rendon, RN is Primary Nurse. iw 08:14 Door closed. Noise minimized. Warm blanket given. PO fluids given. Diet: Tolerated well.zm 08:28 Chest Pa And Lat (2 Views) XRAY In Process Unspecified. EDMS 09:08 Placed in gown. Bed in low position. Call light in reach. Side rails up X 1. Provided mb9 Education on: press call light if needing anything. Client placed on continuous cardiac and pulse oximetry monitoring. NIBP monitoring applied. 09:09 No provider procedures requiring assistance completed. mb9 09:11 Patient requests pain medication. mb9 09:25 Patient requests pain medication. mb9 09:45 Patient did not have IV access during this emergency room visit. mb9 10:23 Ramon Harris DO is Referral Physician. ms3 Administered Medications: 08:28 Drug: Acetaminophen PO 1000 mg PO once Route: PO; iw 09:08 Follow up: Response: Pain is unchanged, physician notified mb9 09:33 Drug: morphine PO 15 mg PO once Route: PO; mb9 10:29 Follow up: Response: No adverse reaction mb9 Medication: 08:34 VIS not applicable for this client. iw Outcome: 10:24 Discharge ordered by . ms3 10:29 Discharged to home ambulatory, with family, mb9 10: Condition: stable 10:29 Discharge instructions given to patient, Instructed on discharge instructions, follow up and referral plans. Demonstrated understanding of instructions, follow-up care, : Patient left the ED. caleb Signatures: Dispatcher [employer] EDAlma Menezes, ДМИТРИЙ RN Marcos Lin RN RN Owen Curtis, DO ms3 María Tobias Mary Beth RN RN mb9 Henna Fonseca 5
[2023-11-18 10:35] VITALS: TEMP 97.2
[2023-11-18 10:36] VITALS: BP 128/88; O2SAT 100
== END 2023-11-18 10:29 | disposition home or self-care (01) ==
LOC: ER 07:26
DX: M79.10 Myalgia, unspecified site (principal); R05.9 Cough, unspecified; R09.81 Nasal congestion; Z11.52 Encounter for screening for COVID-19
CPT/HCPCS: 36415; 71046; 87804; 87811; 99283

== ENCOUNTER 2024-04-01 20:10 | Emergency (ER) | payer OTHER ==
[2024-04-01] MEDS ORDERED: METOCLOPRAMIDE 10 MG/2mL INJ ONE (21:23)
[2024-04-01] MEDS ORDERED: MORPHINE 4 MG/ML SYR ONE (21:24)
[2024-04-01] MEDS ORDERED: NA CHLORIDE 0.9% 1,000 ML ONE (21:24)
--- NOTE | 2024-04-01 21:30 | RAD REPORT ---
EXAM: CT brain without contrast HISTORY: new headache COMPARISON: Multiple prior examinations are reviewed. TECHNIQUE: Multiple contiguous axial images were obtained and a CT of the brain without contrast. Sag ittal and coronal reformats were performed. One or more of the following dose reduction techniques were used: Automated exposure control, adjust ment of the mA and/or kV according to patient size, and/or iterative reconstruction. FINDINGS: No evidence of hydrocephalus, intracranial hemorrhage, or extra-axial fluid collection. Postsurgical changes seen in the left occipital region. No evidence of midline shift or areas of bra in edema. Left posterior occipital craniectomy noted. The visualized paranasal sinuses and mastoid air cells ar e essentially clear. Right frontal scalp lipoma measuring 10 mm. IMPRESSION: No evidence of acute intracranial abnormality.
[2024-04-01 21:39] LABS: Absolute Basophils 0.1 K/uL (0-0.5); Absolute Eosinophils 0.2 K/uL (0-0.5); Absolute Lymphocytes (CBC) 2.4 K/uL (0.7-4.9); Absolute Monocytes 0.5 K/uL (0.1-1.3); Absolute Neutrophil 5.7 K/uL (1.8-8.0); Basophils % 1.1 % (0-1.3); Eosinophils % 2.5 % (0-4.4); Hematocrit 41.8 % (39.6-49.0); Lymphocytes % 26.5 % (15.3-44.8); MCH 30.7 pg (27.0-35.0); MCHC 33.5 g/dL (32.0-36.0); MCV 91.8 fL (80-100); MPV 7.3 fL (7.6-11.3); Monocytes % 5.8 % (3.3-12.3); Neutrophils % 64.1 % (41.7-73.7); Platelets 318 thou/uL (152-406); RBC Red Blood Cell Count 4.55 M/uL (4.33-5.43); Red Cell Distribution Width 13.7 % (12.1-15.2)
[2024-04-01 21:57] LABS: ALT/SGPT 27 U/L (16-61); Albumin 2.9 g/dL (3.4-5.0); Albumin/Globulin Ratio 0.7 (1.1-1.8); Alkaline Phosphatase 210 U/L (45-117); Anion Gap 10.8 mEq/L (5.0-15.0); BUN Blood Urea Nitrogen 41 mg/dL (7-18); Bicarbonate 22 mEq/L (21-32); Bilirubin Total 0.3 mg/dL (0.2-1.0); Globulin 4.4 g/dL (2.3-3.5); Glomerular Filtration Rate 26 ml/min (=/>90); Potassium 4.8 mEq/L (3.5-5.1); Protein, Total 7.3 g/dL (6.4-8.2); Sodium Level 132 mEq/L (136-145)
[2024-04-01 22:00] LABS: AST/SGOT < 10 U/L (15-37); Bilirubin Direct < 0.2 mg/dL (0-0.2); Bilirubin Indirect, Calculated 0.1 mg/dL (0.2-0.8)
[2024-04-01 22:07] LABS: Glucose Level 533 mg/dL (74-106)
[2024-04-01] MEDS ORDERED: HYDROCODONE/APAP 5/325 MG TAB ONE (23:27)
--- NOTE | 2024-04-01 23:28 | ER ---
Nurse's Notes [facility] Name: Sanjeev Mcpherson Age: 53 yrs Sex: Male : 1970 Arrival Date: 04/01/2024 Time: 20:10 Bed 13 Private MD: Diagnosis: Acute Tension Headache, Hyperglycemia , diabetes mellitus type 2 with hyperglycemia Presentation: 04/01 20:32 Chief complaint: Patient states: c/o headache to posterior head but also has pain me1 behind his eyes 09/27 that started yesterday. Coronavirus screen: Vaccine status: Patient reports being unvaccinated. Ebola Screen: No symptoms or risks identified at this time. Initial Sepsis Screen: Does the patient meet any 2 criteria? No. Patient's initial sepsis screen is negative. Does the patient have a suspected source of infection? No. Patient's initial sepsis screen is negative. Risk Assessment: Do you want to hurt yourself or someone else? Patient reports no desire to harm self or others. Onset of symptoms was March 31, 2024. 20:32 Method Of Arrival: Ambulatory [facility] 20:32 Acuity: JULIANNE 3 me1 Triage Assessment: 20:40 Headache History: The patient has had previous headaches and this one is similar to rg5 previous episodes. Pain: Also complains of. 20:40 General: Appears in no apparent distress. comfortable, Behavior is calm, cooperative. rg5 Pain: Pain began 3 hours ago. Historical: - Allergies: 20:37 Adhesives; tape; me1 20:37 Anesthetics - Amide Type; me1 20:37 Iodine; me1 - PMHx: 20:37 BRAIN TUMOR; Cancer; Diabetes - NIDDM; Hyperlipidemia; Hypertension; Lung Cancer; me1 - PSHx: 20:37 Brain tumor removed; hernia repair; me1 - Immunization history:: Adult Immunizations up to date. - Infectious Disease History:: Denies. - Social history:: Smoking status: Patient/guardian denies using tobacco, but has a distant history of tobacco abuse. - Family history:: not pertinent. Screenin:34 [facility] ED Fall Risk Assessment (Adult) History of falling in the last 3 months, rg5 including since admission No falls in past 3 months (0 pts) Confusion or Disorientation Intoxicated or Sedated No (0 pts) Impaired Gait No (0 pts) Mobility Assist Device Used No (0 pt) Altered Elimination Yes (1 pt) Score/Fall Risk Level 0 - 2 = Low Risk Oriented to surroundings, Educated pt \T\ family on fall prevention, incl call for assistance when getting out of bed, Hourly rounding (assess needs \T\ fall precautionary measures) done. Abuse screen: Denies threats or abuse. Nutritional screening: No deficits noted. Tuberculosis screening: No symptoms or risk factors identified. Assessment: 21:34 General: Appears in no apparent distress. Behavior is calm, cooperative, appropriate rg5 for age. Pain: Complains of pain in head \T\ eyes Pain currently is 10 out of 10 on a pain scale. Quality of pain is described as aching. Neuro: Level of Consciousness is awake, alert, Oriented to person, place, time, situation, Reports headache. Cardiovascular: Denies chest pain, Patient's skin is warm and dry. Respiratory: Airway is patent Trachea midline Respiratory effort is even, unlabored, Respiratory pattern is regular, symmetrical. GI: Abdomen is round non-distended, Abd is soft and non tender. : No signs and/or symptoms were reported regarding the genitourinary system. EENT: Reports pain in right eye and left eye. Derm: Skin is intact, Skin is dry, Skin is normal, Skin temperature is warm. Musculoskeletal: Circulation, motion, and sensation intact. Range of motion: intact in all extremities. 22:27 Reassessment: Patient and/or family updated on plan of care and expected duration. Pain rg5 level reassessed. Patient is alert, oriented x 3, equal unlabored respirations, skin warm/dry/pink. Patient states feeling better. Patient states symptoms have improved. 23:30 Reassessment: Patient and/or family updated on plan of care and expected duration. Pain rg5 level reassessed. Patient is alert, oriented x 3, equal unlabored respirations, skin warm/dry/pink. Patient states feeling better. Patient states symptoms have improved. Vital Signs: 20:32 BP 117 / 99; Pulse 108; Resp 18; Temp 98.2; Pulse Ox 98% ; Weight 81.65 kg; Height 5 me1 ft. 0 in. ; Pain 8/10; 21:33 BP 141 / 90; Pulse 100; Resp 18; Pulse Ox 95% on R/A; Pain 10/10; rg5 22:26 BP 109 / 96; Pulse 88; Resp 17; Temp 98; Pulse Ox 98% on R/A; Pain 0/10; rg5 23:30 BP 121 / 85; Pulse 89; Resp 17; Temp 98; Pulse Ox 100% on R/A; Pain 0/10; rg5 20:32 Body Mass Index 35.15 (81.65 kg, 152.4 cm) me1 20:32 Pain Scale: Adult me1 21:33 Pain Scale: Adult rg5 22:26 Pain Scale: Adult rg5 23:30 Pain Scale: Adult rg5 Shireen Coma Score: 04/02 20:11 Eye Response: spontaneous(4). Motor Response: obeys commands(6). Verbal Response: sp4 oriented(5). Total: 15. 20:15 Eye Response: spontaneous(4). Motor Response: obeys commands(6). Verbal Response: sp4 oriented(5). Total: 15. NIH Stroke Scale Scores: 20:11 NIHSS Score: 0 sp4 ED Course: 04/01 20:12 Patient arrived in ED. im 20:16 Omari Florian MD is Attending Physician. sp4 20:37 Triage completed. me1 20:37 Arm band placed on Patient placed in waiting room. me1 21:14 CT Head Brain wo Cont In Process Unspecified. EDMS 21:17 Frederic Khan, ДМИТРИЙ is Primary Nurse. rg5 21:24 Inserted saline lock: 22 gauge in right forearm, using aseptic technique. Blood ha1 collected. Flushed with 10 mL NS. 21:34 Patient has correct armband on for positive identification. Bed in low position. Call rg5 light in reach. Side rails up X 1. Door closed. Noise minimized. Lights dimmed. Verbal reassurance given. 21:34 No provider procedures requiring assistance completed. rg5 23:38 IV discontinued, bleeding controlled, No redness/swelling at site. Pressure dressing rg5 applied. 23:39 Provided Education on: post er care. rg5 Administered Medications: 21:30 Drug: metoCLOPramide IVP 10 mg IVP once; over 1 to 2 minutes Route: IVP; Site: right rg5 forearm; 22:51 Follow up: Response: No adverse reaction rg5 21:31 Drug: NS 0.9% IV 1000 ml IV at 1000 ml once; to be given as a bolus over 60 minutes rg5 Route: IV; Rate: 1000 ml; Site: right forearm; 22:52 Follow up: IV Status: Completed infusion; IV Intake: 1000ml rg5 21:31 Drug: morphine IVP or IV 4 mg IVP once over 4 mins Route: IVP; Infused Over: 4 mins; rg5 Site: right forearm; 22:51 Follow up: Response: Pain is decreased rg5 23:20 Drug: HYDROcodone-acetaminophen PO 5 mg-325 mg 2 tabs PO once Route: PO; rg5 23:40 Follow up: Response: No adverse reaction; Pain is decreased rg5 23:29 Not Given (Patient Refused): insulin regular human8 units IVP once rg5 23:29 Not Given (Patient Refused): ns 0.9% 1000 ml IV at 1000 ml once; to be given as a bolus rg5 over 60 minutes Medication: 21:34 VIS not applicable for this client. rg5 Intake: 22:52 IV: 1000ml; Total: 1000ml. rg5 Outcome: 23:28 Discharge ordered by sp4 23:38 Discharged to home ambulatory, rg5 23:38 Condition: stable 23:38 Discharge instructions given to patient, Instructed on discharge instructions, Demonstrated understanding of instructions, follow-up care, Prescriptions given X 2, 23:42 Patient left the ED. rg5 NIH Stroke Scale - NIH Stroke Score Date: 04/02/2024 Time: 20:11 Total Score = 0 10. Dysarthria (speech clarity - read or repeat words) - 0(Normal) 11. Extinction and Inattention (visual/tactile/auditory/spatial/personal) - 0(No abnormality) 1a. Level of Consciousness (LOC) - 0(Alert) 1b. Level of Consciousness (LOC) (Month \T\ Age) - 0(Both) 1c. LOC Commands (Open \T\ Closes Eyes/Associate Account Manager) - 0(Both) 2. Best Gaze (Lateral Gaze Paresis) - 0(Normal) 3. Visual Field Loss - 0(No visual loss) 4. Facial Palsy - 0(Normal) 5a. Left Arm: Motor (10-second hold) - 0(No drift) 5b. Right Arm: Motor (10-second hold) - 0(No drift) 6a. Left Leg: Motor (5-second hold - always test supine) - 0(No drift) 6b. Right Leg: Motor (5-second hold - always test supine) - 0(No drift) 7. Limb Ataxia (finger/nose \T\ heel/beaver - test with eyes open) - 0(Absent) 8. Sensory Loss (pinprick arms/legs/face) - 0(Normal) 9. Best Language: Aphasia (description/naming/reading) - 0(No aphasia) Initials: sp4 Signatures: Dispatcher [employer] EDKathy Don RN RN ha1 Omari Florian MD MD sp4 Kathia Toussaint Michelle RN RN me1 Frederic Khan RN RN rg5
--- NOTE | 2024-04-01 23:28 | EDPHYS ---
Physician Documentation [facility] Name: Sanjeev Mcpherson Age: 53 yrs Sex: Male : 1970 Arrival Date: 04/01/2024 Time: 20:10 Bed 13 Private MD: ED Physician Omari Florian HPI: 04/01 20:37 This 53 yrs old Male presents to ER via Ambulatory with complaints of sp4 Headache, Eye Pain. 04/02 20:11 Patient is very pleasant gentleman with history of prior cerebral tumor with prior sp4 craniectomy left occipital location. Craniectomy was done at [facility]. Approximately 1 year ago. Patient presents with worsening headache and pain behind his eyes. Patient states he has daily headaches but today headache is worse. Historical: - Allergies: 04/01 20:37 Adhesives; tape; me1 20:37 Anesthetics - Amide Type; me1 20:37 Iodine; me1 - PMHx: 20:37 BRAIN TUMOR; Cancer; Diabetes - NIDDM; Hyperlipidemia; Hypertension; Lung Cancer; me1 - PSHx: 20:37 Brain tumor removed; hernia repair; me1 - Immunization history:: Adult Immunizations up to date. - Infectious Disease History:: Denies. - Social history:: Smoking status: Patient/guardian denies using tobacco, but has a distant history of tobacco abuse. - Family history:: not pertinent. ROS: 04/02 20:11 Constitutional: Negative for fever, chills, and weight loss, Positive headache. sp4 Positive pain behind the eyes All other systems are negative, Exam: 20:11 Constitutional: This is a well developed, well nourished patient who is awake, alert, sp4 and in no acute distress chronically ill-appearing male, nontoxic. Head/Face: Normocephalic, atraumatic. Left posterior occipital scar from prior craniectomy Eyes: Pupils equal round and reactive to light, extra-ocular motions intact. Lids and lashes normal. Conjunctiva and sclera are not injected. Cornea within normal limits. Periorbital areas with no swelling, redness, or edema. ENT: Nares patent. No nasal discharge, no septal abnormalities noted. Tympanic membranes are normal and external auditory canals are clear. Oropharynx with no redness, swelling, or masses, exudates, or evidence of obstruction, uvula midline. Mucous membranes moist. Neck: Trachea midline, no thyromegaly or masses palpated, and no cervical lymphadenopathy. Supple, full range of motion without nuchal rigidity, or vertebral point tenderness. Chest/axilla: Normal chest wall appearance and motion. Nontender with no deformity. No lesions are appreciated. Cardiovascular: Regular rate and rhythm with a normal S1 and S2. No gallops, murmurs, or rubs. Normal PMI, no JVD. No pulse deficits. Respiratory: Lungs have equal breath sounds bilaterally, clear to auscultation and percussion. No rales, rhonchi or wheezes noted. No increased work of breathing, no retractions or nasal flaring. Abdomen/GI: Soft, with normal bowel sounds. No distension or tympany. No guarding or rebound. No evidence of tenderness throughout. Back: No spinal tenderness. No costovertebral tenderness. Skin: Warm, dry with normal turgor. Normal color with no rashes, no lesions, and no evidence of cellulitis. MS/ Extremity: Pulses equal, no cyanosis. Neurovascular intact. Full, normal range of motion. Neuro: Awake and alert, GCS 15, oriented to person, place, time, and situation. Cranial nerves II-XII grossly intact. Motor strength 5/5 in all extremities. Sensory grossly intact. Psych: Awake, alert, with orientation to person, place and time. Behavior, mood, and affect are within normal limits Vital Signs: 04/01 20:32 BP 117 / 99; Pulse 108; Resp 18; Temp 98.2; Pulse Ox 98% ; Weight 81.65 kg; Height 5 me1 ft. 0 in. ; Pain 8/10; 21:33 BP 141 / 90; Pulse 100; Resp 18; Pulse Ox 95% on R/A; Pain 10/10; rg5 22:26 BP 109 / 96; Pulse 88; Resp 17; Temp 98; Pulse Ox 98% on R/A; Pain 0/10; rg5 23:30 BP 121 / 85; Pulse 89; Resp 17; Temp 98; Pulse Ox 100% on R/A; Pain 0/10; rg5 20:32 Body Mass Index 35.15 (81.65 kg, 152.4 cm) me1 20:32 Pain Scale: Adult me1 21:33 Pain Scale: Adult rg5 22:26 Pain Scale: Adult rg5 23:30 Pain Scale: Adult rg5 NIH Stroke Scale Scores: 04/02 20:11 NIHSS Score: 0 sp4 Shireen Coma Score: 20:11 Eye Response: spontaneous(4). Motor Response: obeys commands(6). Verbal Response: sp4 oriented(5). Total: 15. 20:15 Eye Response: spontaneous(4). Motor Response: obeys commands(6). Verbal Response: sp4 oriented(5). Total: 15. MDM: 04/01 20:16 Medical Screening Exam initiated sp4 04/02 20:15 Differential diagnosis: cluster headache, glaucoma, migraine, neoplasm, subarachnoid sp4 bleed, uremia. Data reviewed: vital signs, nurses notes, old medical records, lab test result(s), radiologic studies, CT scan. Consideration of Admission/Observation Escalation of care including admission/observation considered. ED course: EXAM: CT brain without contrast HISTORY: new headache COMPARISON: Multiple prior examinations are reviewed. TECHNIQUE: Multiple contiguous axial images were obtained and a CT of the brain without contrast. Sagittal and coronal reformats were performed. One or more of the following dose reduction techniques were used: Automated exposure control, adjustment of the mA and/or kV according to patient size, and/or iterative reconstruction. FINDINGS: No evidence of hydrocephalus, intracranial hemorrhage, or extra-axial fluid collection. Postsurgical changes seen in the left occipital region. No evidence of midline shift or areas of brain edema. Left posterior occipital craniectomy noted. The visualized paranasal sinuses and mastoid air cells are essentially clear. Right frontal scalp lipoma measuring 10 mm. IMPRESSION: No evidence of acute intracranial abnormality. . 20:19 ED course: Patient improved after medications. Patient was offered insulin for elevated sp4 blood sugar but he reports he will go home and take his insulin at home. Stable for discharge. 04/01 20:37 Order name: Basic Metabolic Panel; Complete Time: 23:19 sp4 04/01 20:37 Order name: CBC with Diff; Complete Time: :43 sp4 04/01 20:37 Order name: LFT's; Complete Time: 23:19 sp4 04/01 23:06 Order name: Glucose, Ancillary Testing; Complete Time: 23:19 EDMS 04/01 20:43 Order name: CT Head Brain wo Cont; Complete Time: 21:43 sp4 04/01 20:37 Order name: IV Saline Lock; Complete Time: 21:39 sp4 04/01 20:37 Order name: Labs collected and sent; Complete Time: 21:39 sp4 04/01 20:37 Order name: O2 Per Protocol; Complete Time: 21:39 sp4 04/01 20:37 Order name: O2 Sat Monitoring; Complete Time: 21:39 sp4 04/01 21:21 Order name: Labs - recollect needed: green top; Complete Time: 21:30 kmf 04/01 23:20 Order name: Accucheck Blood Glucose; Complete Time: 23:23 sp4 Administered Medications: 04/01 21:30 Drug: metoCLOPramide IVP 10 mg IVP once; over 1 to 2 minutes Route: IVP; Site: right rg5 forearm; 22:51 Follow up: Response: No adverse reaction rg5 21:31 Drug: NS 0.9% IV 1000 ml IV at 1000 ml once; to be given as a bolus over 60 minutes rg5 Route: IV; Rate: 1000 ml; Site: right forearm; 22:52 Follow up: IV Status: Completed infusion; IV Intake: 1000ml rg5 21:31 Drug: morphine IVP or IV 4 mg IVP once over 4 mins Route: IVP; Infused Over: 4 mins; rg5 Site: right forearm; 22:51 Follow up: Response: Pain is decreased rg5 23:20 Drug: HYDROcodone-acetaminophen PO 5 mg-325 mg 2 tabs PO once Route: PO; rg5 23:40 Follow up: Response: No adverse reaction; Pain is decreased rg5 23:29 Not Given (Patient Refused): insulin regular human8 units IVP once rg5 23:29 Not Given (Patient Refused): ns 0.9% 1000 ml IV at 1000 ml once; to be given as a bolus rg5 over 60 minutes Disposition Summary: 04/01/24 23:28 Discharge Ordered Notes: Location: Home sp4 Problem: new sp4 Symptoms: have improved sp4 Condition: Stable sp4 Diagnosis - Acute Tension Headache, Hyperglycemia , diabetes mellitus type 2 with sp4 hyperglycemia Followup: sp4 - With: Private Physician - When: 7 - 10 days - Reason: Recheck today's complaints Discharge Instructions: - Discharge Summary Sheet sp4 - Hyperglycemia, [id number] sp4 Forms: - Work release form sp4 - Patient Portal Instructions sp4 Prescriptions: - Fioricet 50-300-40 mg Oral capsule - take 1 capsule ORAL route every 6 hours PRN headaches; 30 capsule; Refills: 0, sp4 Product Selection Permitted - Reglan 10 mg Oral tablet - take 1 tablet ORAL route every 6 hours PRN nausea and headache; 30 tablet; sp4 Refills: 0, Product Selection Permitted NIH Stroke Scale - NIH Stroke Score Date: 04/02/2024 Time: 20:11 Total Score = 0 10. Dysarthria (speech clarity - read or repeat words) - 0(Normal) 11. Extinction and Inattention (visual/tactile/auditory/spatial/personal) - 0(No abnormality) 1a. Level of Consciousness (LOC) - 0(Alert) 1b. Level of Consciousness (LOC) (Month \T\ Age) - 0(Both) 1c. LOC Commands (Open \T\ Closes Eyes/Strategies Analyst) - 0(Both) 2. Best Gaze (Lateral Gaze Paresis) - 0(Normal) 3. Visual Field Loss - 0(No visual loss) 4. Facial Palsy - 0(Normal) 5a. Left Arm: Motor (10-second hold) - 0(No drift) 5b. Right Arm: Motor (10-second hold) - 0(No drift) 6a. Left Leg: Motor (5-second hold - always test supine) - 0(No drift) 6b. Right Leg: Motor (5-second hold - always test supine) - 0(No drift) 7. Limb Ataxia (finger/nose \T\ heel/beaver - test with eyes open) - 0(Absent) 8. Sensory Loss (pinprick arms/legs/face) - 0(Normal) 9. Best Language: Aphasia (description/naming/reading) - 0(No aphasia) Initials: sp4 Signatures: Dispatcher [employer] EDMS Omari Florian MD MD sp4 Tierney Le RN RN me1 Shonda Malagon Frederic Cisneros RN RN rg5 Corrections: (The following items were deleted from the chart) 20:43 20:43 Head Brain Wo Cont+[id number].RAD.BRZ ordered. EDMS EDMS
[2024-04-01 23:48] VITALS: TEMP 98
[2024-04-01 23:49] VITALS: BP 121/85; O2SAT 100
== END 2024-04-01 23:42 | disposition home or self-care (01) ==
LOC: ER 20:10
DX: G44.209 Tension-type headache, unspecified, not intractable (principal); E11.65 Type 2 diabetes mellitus with hyperglycemia; I10 Essential (primary) hypertension; Z86.011 Personal history of benign neoplasm of the brain
CPT/HCPCS: 85025; 80048; 36415; 82947; 80076; 70450; J2765; J7030

== ENCOUNTER 2024-05-26 12:58 | Inpatient (IN) | payer OTHER, SELFPAY ==
[2024-05-26] MEDS ORDERED: IPRATROPIUM BROM 0.5MG/2.5ML ONE (13:27)
[2024-05-26] MEDS ORDERED: LEVALBUTEROL 1.25 MG/3 ML NEB ONE (13:27)
[2024-05-26] MEDS ORDERED: CEFTRIAXONE 1000 MG/VIAL ONE (13:27)
[2024-05-26] MEDS ORDERED: METHYLPREDNISOLONE 125 MG INJ ONE (13:27)
[2024-05-26] MEDS ORDERED: FAMOTIDINE 20 MG/2 ML VIAL IV ONE (13:28)
[2024-05-26] MEDS ORDERED: MAGNESIUM SULFATE 1 gm IVPB 1 GM/100 ML BAG IV ONE (13:28)
[2024-05-26] MEDS ORDERED: NA CHLORIDE 0.9% 1,000 ML ONE ×2 (13:28→16:17)
[2024-05-26] MEDS ORDERED: MORPHINE 4 MG/ML SYR ONE ×2 (13:33→16:36)
[2024-05-26 13:37] LABS: Absolute Eosinophils 0.2 K/uL (0-0.5); Absolute Lymphocytes (CBC) 1.7 K/uL (0.7-4.9); Absolute Monocytes 0.3 K/uL (0.1-1.3); Basophils % 0.6 % (0-1.3); Eosinophils % 3.1 % (0-4.4); Hematocrit 45.2 % (39.6-49.0); MCH 31.2 pg (27.0-35.0); MCHC 33.2 g/dL (32.0-36.0); MCV 93.9 fL (80-100); Monocytes % 4.2 % (3.3-12.3); Neutrophils % 68.1 % (41.7-73.7); Platelets 262 thou/uL (152-406); RBC Red Blood Cell Count 4.82 M/uL (4.33-5.43); Red Cell Distribution Width 14.8 % (12.1-15.2)
[2024-05-26 13:45] LABS: PT Prothrombin Time 10.5 SECONDS (10-13.0); Protime INR 0.92
[2024-05-26 13:57] LABS: ALT/SGPT 41 U/L (16-61); AST/SGOT 18 U/L (15-37); Albumin 3.2 g/dL (3.4-5.0); Albumin/Globulin Ratio 0.7 (1.1-1.8); Alkaline Phosphatase 256 U/L (45-117); Anion Gap 9.9 mEq/L (5.0-15.0); BUN Blood Urea Nitrogen 29 mg/dL (7-18); Bicarbonate 24 mEq/L (21-32); Bilirubin Direct < 0.2 mg/dL (0-0.2); Bilirubin Total 0.2 mg/dL (0.2-1.0); Globulin 4.4 g/dL (2.3-3.5); Glomerular Filtration Rate 27 ml/min (=/>90); NT PRO-BNP 84 pg/mL (<125); Potassium 4.9 mEq/L (3.5-5.1); Protein, Total 7.6 g/dL (6.4-8.2); Sodium Level 131 mEq/L (136-145); Troponin High Sensitivity 13.9 pg/mL (<58.9)
[2024-05-26 13:59] LABS: Glucose Level 668 mg/dL (74-106)
[2024-05-26] MEDS ORDERED: INSULIN GLARGINE 100 UNIT/ML SQ ONE (14:27)
[2024-05-26] MEDS ORDERED: INSULIN REGULAR (HUMAN) 100 UNIT/ML ONE (14:29)
--- NOTE | 2024-05-26 15:08 | RAD REPORT ---
Procedure: Chest Single View HISTORY: Cough COMPARISON: 2023 FINDINGS: Patient is rotated. The lungs appear clear of acute infiltrate. No significant pleural effusion noted. The heart is normal size. IMPRESSION: No acute abnormality is displayed.
--- NOTE | 2024-05-26 15:12 | RAD REPORT ---
EXAM: CT brain without contrast HISTORY: Dizziness COMPARISON: March 2024 TECHNIQUE: Multiple contiguous axial images were obtained and a CT of the brain without contrast.. Sagittal and coronal reconstruction performed. Automated exposure control, adjustment of the mA and/or kV according to patient size, and/or iterative reconstruction. Unless otherwise specified, incidental f indings do not require dedicated imaging follow-up FINDINGS: Left occipital craniotomy again demonstrated.. 5.1 x 2.4 cm fluid collection which may represent CSF within the adjacent left occipital scalp mildly increased in size. Low-density left occipital lobe presumably gliosis. An intracranial bleed is not seen Ventricles are normal caliber No significant hypodensity within the brain No fluid within the visualized sinuses or mastoids noted. IMPRESSION: Left occipital craniotomy again demonstrated.. 5.1 x 2.4 cm fluid collection which may represent CSF within the adjacent left occipital scalp mildly increased in size. If the patient continues to have symptoms to suggest an acute intracranial abnormality then MRI of th e brain would be recommended.
--- NOTE | 2024-05-26 15:36 | ER ---
Nurse's Notes [facility] Name: Sanjeev Mcpherson Age: 54 yrs Sex: Male : 1970 Arrival Date: 05/26/2024 Time: 12:58 Bed 3 Private MD: Diagnosis: COPD/ Chronic obstructive pulmonary disease with (acute) exacerbation;Type 2 diabetes mellitus with hyperglycemia;Unspecified kidney failure;Headache;Acidosis Presentation: 05/26 13:00 Chief complaint: Patient states: Cough, SOB, wheezing, weak, dizzy since this morning. ll1 Coronavirus screen: Client denies travel out of the [place] in the last 14 days. At this time, the client does not indicate any symptoms associated with coronavirus-19. Ebola Screen: Patient denies travel to an Ebola-affected area in the 21 days before illness onset. Initial Sepsis Screen: Does the patient meet any 2 criteria? No. Patient's initial sepsis screen is negative. Does the patient have a suspected source of infection? No. Patient's initial sepsis screen is negative. Risk Assessment: Do you want to hurt yourself or someone else? Patient reports no desire to harm self or others. Onset of symptoms was May 26, 2024. 13:00 Method Of Arrival: EMS: [facility] ll1 13:00 Acuity: JULIANNE 3 ll1 13:02 Chief complaint: EMS states: 121/88, 116, 97% RA, 99.4. blood sugar reads HI. ll1 Triage Assessment: 13:02 General: Appears uncomfortable, Behavior is calm, cooperative, appropriate for age. ll1 Pain: Denies pain. Respiratory: Reports shortness of breath cough that is Airway is patent Breath sounds with wheezes bilaterally. Onset: The symptoms/episode began/occurred today, the patient has mild shortness of breath. Historical: - Allergies: 12:59 Adhesives; tape; ll1 12:59 Anesthetics - Amide Type; ll1 12:59 Iodine; ll1 - PMHx: 12:59 BRAIN TUMOR; Cancer; Diabetes - NIDDM; Hyperlipidemia; Hypertension; Lung Cancer; ll1 - PSHx: 12:59 Brain tumor removed; hernia repair; ll1 - Immunization history:: Adult Immunizations up to date. - Infectious Disease History:: Denies. - Social history:: Smoking status: Patient/guardian denies using tobacco, the patient reports quitting approximately 4 years ago. Screenin:14 [facility] ED Fall Risk Assessment (Adult) History of falling in the last 3 months, ss including since admission No falls in past 3 months (0 pts) Confusion or Disorientation No (0 pts) Intoxicated or Sedated No (0 pts) Impaired Gait No (0 pts) Mobility Assist Device Used No (0 pt) Altered Elimination No (0 pt) Score/Fall Risk Level 0 - 2 = Low Risk Maintained a safe environment, Hourly rounding (assess needs \T\ fall precautionary measures) done. Abuse screen: Denies threats or abuse. Nutritional screening: No deficits noted. Tuberculosis screening: No symptoms or risk factors identified. Assessment: 17:14 Reassessment: No changes from previously documented assessment. Patient and/or family ss updated on plan of care and expected duration. Pain level reassessed. Patient is alert, oriented x 3, equal unlabored respirations, skin warm/dry/pink. 17:15 Cardiovascular: Rhythm is sinus tachycardia. ss 17:16 Respiratory: Respiratory effort is even, unlabored. ss Vital Signs: 13:00 BP 154 / 93; Pulse 113; Resp 18; Pulse Ox 94% on R/A; Weight 83.91 kg; Height 5 ft. 0 ll1 in. ; 17:14 BP 140 / 90; Pulse 103; Resp 18; Temp 98; Pulse Ox 98% ; ss 13:00 Body Mass Index 36.13 (83.91 kg, 152.4 cm) ll1 Voca Coma Score: 15:30 Eye Response: spontaneous(4). Motor Response: obeys commands(6). Verbal Response: vanessa oriented(5). Total: 15. ED Course: 12:59 Patient arrived in ED. ll1 12:59 Arm band placed on Patient placed in an exam room, on a stretcher. ll1 13:00 Patient has correct armband on for positive identification. Provided Education on: ER ss procedures and process. 13:02 Triage completed. ll1 13:04 Checo Ware RN is Primary Nurse. ll1 13:05 David Alberts MD is Attending Physician. vanessa 13:27 Lactate w/ 2H reflex if indic. Sent. ld1 13:27 Blood Culture Adult (2) Sent. ld1 13:28 Inserted saline lock: 22 gauge in right forearm, using aseptic technique. Blood ld1 collected. Flushed with 10 mL NS. 14:03 XRAY Chest (1 view) In Process Unspecified. EDMS 14:32 CT Head Brain wo Cont In Process Unspecified. EDMS 15:34 Hussain Metz MD is Hospitalizing Provider. [facility] 17:15 No provider procedures requiring assistance completed. Patient admitted, IV remains in ss place. 19:26 Primary Nurse role handed off by Checo Ware, RN rv1 Administered Medications: 13:44 Drug: NS 0.9% IV 1000 ml IV at 1000 ml once; to be given as a bolus over 60 minutes ll1 Route: IV; Rate: 1000 ml; Site: right forearm; 16:31 Follow up: Response: No adverse reaction; IV Status: Completed infusion; IV Intake: ll1 1000ml 13:44 Drug: Magnesium Sulfate IVPB 1 grams IVPB once over 1 hrs Route: IVPB; Infused Over: 1 ll1 hrs; Site: right forearm; 16:31 Follow up: Response: No adverse reaction; IV Status: Completed infusion; IV Intake: ll1 100ml 13:44 Drug: MethylPrednisoLONE IVP 125 mg IVP once Route: IVP; Site: right forearm; ll1 16:31 Follow up: Response: No adverse reaction ll1 13:44 Drug: Levalbuterol Inhalation 3.75 mg Inhalation once Route: Inhalation; ll1 16:31 Follow up: Response: No adverse reaction ll1 13:44 Drug: Ipratropium Inhalation Aerosol 0.5 mg Inhalation once Route: Inhalation; ll1 16:31 Follow up: Response: No adverse reaction 1 13:44 Drug: Famotidine IVP 20 mg IVP once; dilute with 10 mL 0.9% NaCl; give over 2 minutes ll1 Route: IVP; Site: right forearm; 16:32 Follow up: Response: No adverse reaction ll1 13:45 Drug: morphine IVP or IV 4 mg IVP once over 4 mins Route: IVP; Infused Over: 4 mins; ll1 Site: right forearm; 16:32 Follow up: Response: No adverse reaction; Pain is decreased; RASS: Alert and Calm (0) ll1 13:49 Drug: Rocephin IV 1 grams IV at per protocol once; Given slow IV push per pharmacy ll1 instructions Route: IV; Rate: per protocol; Site: right forearm; 16:32 Follow up: Response: No adverse reaction; IV Status: Completed infusion; IV Intake: [id number] 14:58 Drug: Insulin Regular Human Sub-Q 10 units Sub-Q once {Co-Signature: joes (Alison Connor RN).} Route: Sub-Q; Site: right upper arm; 16:32 Follow up: Response: No adverse reaction ll1 15:05 Drug: Insulin Regular Human IVP 10 units IVP once {Co-Signature: [email or web address] (Alison Connor RN).} Route: IVP; Site: right upper arm; 16:32 Follow up: Response: No adverse reaction ll1 15:05 Drug: Insulin Glargine Sub-Q 40 units Sub-Q once {Co-Signature: jose (Alison Connor RN).} ll1 Route: Sub-Q; Site: right upper arm; 16:32 Follow up: Response: No adverse reaction ll1 16:30 Drug: NS 0.9% IV 1000 ml IV at 1000 ml once; to be given as a bolus over 60 minutes ll1 Route: IV; Rate: 1000 ml; Site: right forearm; 16:42 Drug: morphine IVP or IV 4 mg IVP once over 4 mins {Note: pain 7/10 RASS 0.} Route: ll1 IVP; Infused Over: 4 mins; Site: right forearm; 17:16 Follow up: Response: No adverse reaction; Pain is decreased; RASS: Alert and Calm (0) ss Medication: 17:16 VIS not applicable for this client. ss Intake: 16:31 IV: 1000ml; Total: 1000ml. ll1 16:31 IV: 100ml; Total: 1100ml. ll1 16:32 IV: 20ml; Total: 1120ml. ll1 Outcome: 15:36 Decision to Hospitalize by Provider. vanessa 17:15 Admitted to Med/surg accompanied by tech, via wheelchair, room 405, report faxed to [facility] at 1713, 17:15 Condition: stable 17:15 Instructed on the need for admit, 20:35 Patient left the ED. vc1 Signatures: Dispatcher [employer] David Mendoza MD MD cha Blanchard, Shelby, RN RN ss Checo Wrae RN RN ll1 Alison Connor RN RN ld1 Josselin Lloyd, RN RN vc1 Anay Elaine rv1 Alison Connor RN ld1
--- NOTE | 2024-05-26 15:37 | EDPHYS ---
Physician Documentation [facility] Name: Sanjeev Mcpherson Age: 54 yrs Sex: Male : 1970 Arrival Date: 05/26/2024 Time: 12:58 Bed 3 Private MD: EMILY Physician David Alberts HPI: 05/26 15:28 This 54 yrs old Male presents to ER via EMS with complaints of Cough, vanessa Shortness Of Breath. 15:28 The patient or guardian reports airway noise, cough, difficulty breathing. Onset: The vanessa symptoms/episode began/occurred 2 day(s) ago. Severity of symptoms: At their worst the symptoms were mild, in the emergency department the symptoms are unchanged. Associated signs and symptoms: Pertinent positives: chest pain, with cough. The patient has experienced similar episodes in the past, multiple times. Historical: - Allergies: 12:59 Adhesives; tape; ll1 12:59 Anesthetics - Amide Type; ll1 12:59 Iodine; ll1 - PMHx: 12:59 BRAIN TUMOR; Cancer; Diabetes - NIDDM; Hyperlipidemia; Hypertension; Lung Cancer; ll1 - PSHx: 12:59 Brain tumor removed; hernia repair; ll1 - Immunization history:: Adult Immunizations up to date. - Infectious Disease History:: Denies. - Social history:: Smoking status: Patient/guardian denies using tobacco, the patient reports quitting approximately 4 years ago. ROS: 15:29 Constitutional: Negative for fever, chills, and weight loss, Eyes: Negative for injury, vanessa pain, redness, and discharge, ENT: Negative for injury, pain, and discharge, Neck: Negative for injury, pain, and swelling, Abdomen/GI: Negative for abdominal pain, nausea, vomiting, diarrhea, and constipation, Back: Negative for injury and pain, : Negative for injury, bleeding, discharge, and swelling, MS/Extremity: Negative for injury and deformity, Skin: Negative for injury, rash, and discoloration, Psych: Negative for depression, anxiety, suicide ideation, homicidal ideation, and hallucinations, Allergy/Immunology: Negative for hives, rash, and allergies, Endocrine: Negative for neck swelling, polydipsia, polyuria, polyphagia, and marked weight changes, Hematologic/Lymphatic: Negative for swollen nodes, abnormal bleeding, and unusual bruising, 15:29 Cardiovascular: Positive for chest pain, of the chest, 15:29 Respiratory: Positive for cough, shortness of breath, wheezing, expiratory, 15:29 Neuro: Positive for headache, Exam: 15:29 Constitutional: This is a well developed, well nourished patient who is awake, alert, vanessa and in no acute distress. Head/Face: Normocephalic, atraumatic. Eyes: Pupils equal round and reactive to light, extra-ocular motions intact. Lids and lashes normal. Conjunctiva and sclera are non-icteric and not injected. Cornea within normal limits. Periorbital areas with no swelling, redness, or edema. ENT: Nares patent. No nasal discharge, no septal abnormalities noted. Tympanic membranes are normal and external auditory canals are clear. Oropharynx with no redness, swelling, or masses, exudates, or evidence of obstruction, uvula midline. Mucous membranes moist. Neck: Trachea midline, no thyromegaly or masses palpated, and no cervical lymphadenopathy. Supple, full range of motion without nuchal rigidity, or vertebral point tenderness. No Meningismus. Chest/axilla: Normal chest wall appearance and motion. Nontender with no deformity. No lesions are appreciated. Cardiovascular: Regular rate and rhythm with a normal S1 and S2. No gallops, murmurs, or rubs. Normal PMI, no JVD. No pulse deficits. Abdomen/GI: Soft, non-tender, with normal bowel sounds. No distension or tympany. No guarding or rebound. No evidence of tenderness throughout. Back: No spinal tenderness. No costovertebral tenderness. Full range of motion. Male : Normal genitalia with no discharge or lesions. Skin: Warm, dry with normal turgor. Normal color with no rashes, no lesions, and no evidence of cellulitis. MS/ Extremity: Pulses equal, no cyanosis. Neurovascular intact. Full, normal range of motion., bilateral aka Neuro: Awake and alert, GCS 15, oriented to person, place, time, and situation. Cranial nerves II-XII grossly intact. Motor strength 5/5 in all extremities. Sensory grossly intact. Cerebellar exam normal. Normal gait. Psych: Awake, alert, with orientation to person, place and time. Behavior, mood, and affect are within normal limits. 15:29 Respiratory: the patient does not display signs of respiratory distress, Respirations: normal, Breath sounds: decreased breath sounds, that are moderate, rhonchi, that are mild, stridor, is not appreciated, + upper airway congestion. wheezing: inspiratory expiratory is heard diffusely, Vital Signs: 13:00 BP 154 / 93; Pulse 113; Resp 18; Pulse Ox 94% on R/A; Weight 83.91 kg; Height 5 ft. 0 ll1 in. ; 17:14 BP 140 / 90; Pulse 103; Resp 18; Temp 98; Pulse Ox 98% ; ss 13:00 Body Mass Index 36.13 (83.91 kg, 152.4 cm) ll1 [place] Coma Score: 15:30 Eye Response: spontaneous(4). Motor Response: obeys commands(6). Verbal Response: vanessa oriented(5). Total: 15. MDM: 13:05 Medical Screening Exam initiated vanessa 15:30 Differential diagnosis: cerebral abscess, epidural hematoma, hypertensive headache, vanessa hypoglycemia, hyponatremia, intracerebral hemorrhage, meningitis, migraine, neoplasm, sinusitis, subarachnoid bleed, subdural hematoma, temporal arteritis, trigeminal neuralgia, uremia, vasomotor headache. Differential Diagnosis: altered mental status, sepsis, flu, Obstructed Airway Bronchitis Influenza Upper Respiratory Infection Sinusitis Pharyngitis Asthma Exacerbation Viral Syndrome Pneumonia Tracheal Injury. Data reviewed: vital signs, nurses notes, lab test result(s), EKG, radiologic studies, CT scan, plain films. Consideration of Admission/Observation Patient was admitted/placed on observation. Escalation of care including admission/observation considered. I considered the following discharge prescriptions or medication management in the emergency department Medications were administered in the Emergency Department. See MAR. Independent interpretation of the following test(s) in the Emergency Department EKG: See my EKG interpretation above. Care significantly affected by the following chronic conditions: Diabetes, Hypertension, Chronic Obstructive Pulmonary Disease, Obesity, Chronic Kidney Disease. Counseling: I had a detailed discussion with the patient and/or guardian regarding the historical points, exam findings, and any diagnostic results supporting the discharge/admit diagnosis, the presence of at least one elevated blood pressure reading (>120/80) during this emergency department visit, lab results, radiology results, the need for further work-up and treatment in the hospital. 05/26 13:09 Order name: Basic Metabolic Panel; Complete Time: 14:21 vanessa 05/26 13:09 Order name: CBC with Diff; Complete Time: 14:21 vanessa 05/26 13:09 Order name: LFT's; Complete Time: 14:21 vanessa 05/26 13:09 Order name: Magnesium; Complete Time: 14:21 vanessa 05/26 13:09 Order name: NT PRO-BNP; Complete Time: 14:21 vanessa 05/26 13:09 Order name: PT-INR; Complete Time: 14:21 vanessa 05/26 13:09 Order name: Troponin HS; Complete Time: 14:21 vanessa 05/26 13:09 Order name: Blood Culture Adult (2) vanessa 05/26 13:09 Order name: Lactate w/ 2H reflex if indic.; Complete Time: 14:21 vanessa 05/26 15:48 Order name: ABG Arterial Blood Gas EDMS 05/26 15:48 Order name: Osmolality, Serum EDMS 05/26 15:50 Order name: Urinalysis w/ reflexes EDMS 05/26 16:40 Order name: Glucose, Ancillary Testing EDMS 05/26 16:52 Order name: Urinalysis w/ reflexes EDMS 05/26 16:56 Order name: D-Dimer EDMS 05/26 16:56 Order name: CBC with Automated Diff EDMS 05/26 16:56 Order name: CBC with Automated Diff EDMS 05/26 16:56 Order name: Comprehensive Metabolic Panel EDMS 05/26 16:56 Order name: Comprehensive Metabolic Panel EDMS 05/26 16:56 Order name: Lipid Profile EDMS 05/26 16:56 Order name: Lipid Profile EDMS 05/26 16:56 Order name: Troponin High Sensitivity EDMS 05/26 16:56 Order name: Troponin High Sensitivity EDMS 05/26 16:56 Order name: Troponin High Sensitivity EDMS 05/26 16:56 Order name: Troponin High Sensitivity EDMS 05/26 16:56 Order name: Troponin High Sensitivity EDMS 05/26 13:09 Order name: XRAY Chest (1 view); Complete Time: 15:26 vanessa 05/26 14:15 Order name: CT Head Brain wo Cont; Complete Time: 15:26 ld1 05/26 16:56 Order name: Echo with Doppler EDMS 05/26 13:09 Order name: Cardiac monitoring; Complete Time: 13:12 vanessa 05/26 13:09 Order name: EKG - Nurse/Tech; Complete Time: 13:12 vanessa 05/26 13:09 Order name: IV Saline Lock; Complete Time: 13:27 [facility] 05/26 13:09 Order name: Labs collected and sent; Complete Time: 13:27 [facility] 05/26 13:09 Order name: O2 Per Protocol; Complete Time: 13:12 [facility] 05/26 13:09 Order name: O2 Sat Monitoring; Complete Time: 13:12 [facility] 05/26 16:14 Order name: Blood Glucose Level; Complete Time: 16:29 [facility] Administered Medications: 13:44 Drug: NS 0.9% IV 1000 ml IV at 1000 ml once; to be given as a bolus over 60 minutes ll1 Route: IV; Rate: 1000 ml; Site: right forearm; 16:31 Follow up: Response: No adverse reaction; IV Status: Completed infusion; IV Intake: ll1 1000ml 13:44 Drug: Magnesium Sulfate IVPB 1 grams IVPB once over 1 hrs Route: IVPB; Infused Over: 1 ll1 hrs; Site: right forearm; 16:31 Follow up: Response: No adverse reaction; IV Status: Completed infusion; IV Intake: ll1 100ml 13:44 Drug: MethylPrednisoLONE IVP 125 mg IVP once Route: IVP; Site: right forearm; 1 16:31 Follow up: Response: No adverse reaction ll1 13:44 Drug: Levalbuterol Inhalation 3.75 mg Inhalation once Route: Inhalation; ll1 16:31 Follow up: Response: No adverse reaction 1 13:44 Drug: Ipratropium Inhalation Aerosol 0.5 mg Inhalation once Route: Inhalation; 1 16:31 Follow up: Response: No adverse reaction [facility] 13:44 Drug: Famotidine IVP 20 mg IVP once; dilute with 10 mL 0.9% NaCl; give over 2 minutes ll1 Route: IVP; Site: right forearm; 16:32 Follow up: Response: No adverse reaction 1 13:45 Drug: morphine IVP or IV 4 mg IVP once over 4 mins Route: IVP; Infused Over: 4 mins; ll1 Site: right forearm; 16:32 Follow up: Response: No adverse reaction; Pain is decreased; RASS: Alert and Calm (0) 1 13:49 Drug: Rocephin IV 1 grams IV at per protocol once; Given slow IV push per pharmacy 1 instructions Route: IV; Rate: per protocol; Site: right forearm; 16:32 Follow up: Response: No adverse reaction; IV Status: Completed infusion; IV Intake: [id number] 14:58 Drug: Insulin Regular Human Sub-Q 10 units Sub-Q once {Co-Signature: ld1 (Alison Connor RN).} Route: Sub-Q; Site: right upper arm; 16:32 Follow up: Response: No adverse reaction ll1 15:05 Drug: Insulin Regular Human IVP 10 units IVP once {Co-Signature: ld1 (Alison Connor RN).} Route: IVP; Site: right upper arm; 16:32 Follow up: Response: No adverse reaction ll1 15:05 Drug: Insulin Glargine Sub-Q 40 units Sub-Q once {Co-Signature: ld1 (Alison Connor RN).} ll1 Route: Sub-Q; Site: right upper arm; 16:32 Follow up: Response: No adverse reaction 1 16:30 Drug: NS 0.9% IV 1000 ml IV at 1000 ml once; to be given as a bolus over 60 minutes ll1 Route: IV; Rate: 1000 ml; Site: right forearm; 16:42 Drug: morphine IVP or IV 4 mg IVP once over 4 mins {Note: pain 7/10 RASS 0.} Route: ll1 IVP; Infused Over: 4 mins; Site: right forearm; 17:16 Follow up: Response: No adverse reaction; Pain is decreased; RASS: Alert and Calm (0) ss Disposition Summary: 05/26/24 15:36 Hospitalization Ordered Notes: Hospitalization Status: Inpatient Admission vanessa Provider: Hussain Metz vanessa Condition: Fair vanessa Problem: new vanessa Symptoms: have improved vanessa Bed/Room Type: Standard vanessa Location: Telemetry/MedSurg (Inpatient)(05/26/24 19:37) rv1 Room Assignment: 203(05/26/24 19:37) rv1 Diagnosis - COPD/ Chronic obstructive pulmonary disease with (acute) exacerbation vanessa - Type 2 diabetes mellitus with hyperglycemia vanessa - Unspecified kidney failure vanessa - Headache vanessa - Acidosis vanessa Forms: - Medication Reconciliation Form vanessa - SBAR form vanessa - Leadership Thank You Letter vanessa Signatures: Dispatcher [employer] Ro Ferrera Diana, RN RN dw Anderson, Corey, MD MD cha Blanchard, Ilene, RN RN ss Checo Ware RN RN ll1 Anay Elaine rv1 Alison Connor RN ld1 Corrections: (The following items were deleted from the chart) 13:10 13:10 BASIC METABOLIC PANEL+C.LAB.BRZ ordered. EDMS EDMS 13:10 13:10 CBC+H.LAB.BRZ ordered. EDMS EDMS 13:10 13:10 HEPATIC FUNCTION+C.LAB.BRZ ordered. EDMS EDMS 13:10 13:10 MAGNESIUM+C.LAB.BRZ ordered. EDMS EDMS 13:10 13:10 PROBNP+C.LAB.BRZ ordered. EDMS EDMS 13:10 13:10 PROTIME (+INR)+COAG.LAB.BRZ ordered. EDMS EDMS 13:10 13:10 Troponin High Sensitivity+C.LAB.BRZ ordered. EDMS EDMS 13:10 13:10 BLOOD CULTURE*+BA.LAB.BRZ ordered. EDMS EDMS 13:10 13:10 LACTATE+C.LAB.BRZ ordered. EDMS EDMS 13:10 13:10 Chest Single View+RAD.RAD.BRZ ordered. EDMS EDMS 17:03 15:36 vanessa bd 18:31 15:36 Telemetry/MedSurg (Inpatient) [facility] dw 18:31 17:03 405 bd dw 19:37 18:31 [facility] ER HOLD dw rv1 19:37 18:31 rv1
[2024-05-26 16:13] LABS: Arterial Blood Carboxyhemoglob 6.6 % (0-1.5); Blood Gas Oxyhemoglobin 85.9 % (94-97); Blood O2 Saturation 94.2 % (92-98.5)
[2024-05-26 16:14] LABS: Blood Gas THB 14.5 g/dl (12-18)
--- NOTE | 2024-05-26 16:43 | P.HP ---
Certification for Inpatient With expected LOS: >2 Midnights Practitioner: I am a practitioner with admitting privileges, knowledge of patient current condition, hospital course, and medical plan of care. Services: Services provided to patient in accordance with Admission requirements found in Title 42 Section 412.3 of the Code of Federal Regulations Patient History Date of Service: 05/26/24 Reason for admission: chest pain History of Present Illness: 54-year-old male with history of brain tumor, cancer, diabetes, diabetes hypertension lung CA brain surgery last year presents with complaints of of 2- day history of chest pain shortness of breath. Chest pain substernal . Reports dyspnea on exertion. Denies any cough or fevers. In the ER he was noted to have elevated blood sugar. He does report having some kidney disease. Craniectomy was done at [facility] 06/11. Patient also reports having chronic headache. It was noted that his creatinine in March was 2.84 today is 2.71. Allergies Anesthetics - Amide Type - Select A [Anesthetics - Amide Type] Allergy (Verified 09/12/22 22:20) Itching/Hives/Rash iodine Allergy (Verified 09/12/22 22:20) Itching/Hives/Rash adhesive Adverse Reaction (Verified 09/12/22 22:20) Itching/Hives/Rash Home Medications: lisinopriL [Lisinopril] 20 mg PO DAILY 09/09/18 Atorvastatin Calcium 40 mg PO DAILY 11/26/20 glipiZIDE [Glipizide] 5 mg PO DAILY 11/26/20 Insulin Aspart [Novolog Flexpen] 10 units SQ BID 09/13/22 Cyclobenzaprine [Flexeril*] 10 mg PO TIDP PRN #30 tab 09/14/22 Hydrocodone 10/APAP 325 [[place] 10/325*] 1 tab PO Q6H PRN #30 tab 09/14/22 Topiramate [Topamax*] 25 mg PO BID #60 tab 09/14/22 - Past Medical/Surgical History Diabetic: Yes -: Small-cell lung cancer with brain metastasis -: History of brain surgery -: Chronic right inguinal hernia -: Diabetes mellitus type 2, insulin-dependent -: Hypertension -: Hyperlipidemia -: Chronic renal disease, stage IV -: Feeding Tube & reversal -: IVC Filter -: Tracheostomy& reversal -: hernia repair -: lobectomy Psychosocial/ Personal History: Patient is . He has 4 children - Social History Alcohol use: No CD- Drugs: No Caffeine use: Yes Review of Systems 10-point ROS is otherwise unremarkable Physical Examination - Physical Exam General: Oriented x3 HEENT: Other (skull deformity noted) Respiratory: Clear to auscultation bilaterally, Normal air movement Cardiovascular: Regular rate/rhythm Gastrointestinal: Soft and benign, Non-distended Musculoskeletal: No swelling, No contractures Neurological: Normal speech - Studies Laboratory Data (last 24 hrs) 05/26/24 05/26/24 05/26/24 13:15 13:15 13:15 WBC 7.30 Hgb 15.0 Hct 45.2 Plt Count 262 PT 10.5 INR 0.92 Sodium 131 L Potassium 4.9 BUN 29 H Creatinine 2.71 H Glucose 668 H* Magnesium 2.0 Total Bilirubin 0.2 AST 18 ALT 41 Alkaline Phosphatase 256 H Assessment and Plan - Problems (Diagnosis) (1) SOB (shortness of breath) Current Visit: Yes Status: Acute (2) CKD (chronic kidney disease) stage 3, GFR 30-59 ml/min Current Visit: Yes Status: Acute (3) Tobacco use disorder Current Visit: No Status: Chronic - Plan 54-year-old male with history of brain tumor,craniotomy, cancer, diabetes, hypertension last year presents with complaints of of 2-day history of chest pa in shortness of breath. #COPD exacerbation #dyspnea #tobacco use --o2, nebs, --conservative on steroids --will check d-dimer, if high check LE duplex, and V/Q scan #chest pain --telemetry, serial enzymes, echo #uncontrolled DM --check aic --check abg, serum osmolality --ddx hhs --IVF --consider insulin drip #HTN --stable, await med rec #CKD --renal consult, urine studies ordered --close to baseline - Advance Directives Does patient have a Living Will: No Does patient have a Durable POA for Healthcare: No
[2024-05-26] MEDS ORDERED: NITROGLYCERIN 0.4 MG/TAB SL PRN (16:50)
[2024-05-26] MEDS ORDERED: D10W 125 ML IV PRN (16:56)
[2024-05-26] MEDS ORDERED: GLUCAGON 1 MG/VIAL IM PRN (16:56)
[2024-05-26] MEDS: HEPARIN 5000 UNIT/ML 1 ML VIAL SQ SCH (17:00)
[2024-05-26 17:22] LABS: Specific Gravity 1.014 (1.005-1.030); Sqamous Epithelial None Seen /HPF (None Seen); Urine Bacteria None Seen /HPF (<20); Urine Bilirubin NEGATIVE (Negative); Urine Blood Trace (Negative); Urine Clarity Clear (Clear); Urine Color Colorless (Yellow); Urine Crystals Unidentified Few /HPF (None Seen); Urine Culture Reflex Order NOT NEEDED; Urine Glucose 4+ (Over) (Negative); Urine Ketones NEGATIVE (Negative); Urine Microscopic Reflex YN ORDER UMIC; Urine Nitrite NEGATIVE (Negative); Urine Protein 1+ (Negative); Urine RBC <5 /HPF (None Seen); Urine Urobilinogen Normal (Normal); Urine WBC None Seen /HPF (<5)
[2024-05-26] MEDS: ACETAMINOPHEN 500 MG TAB PO PRN (21:17)
[2024-05-26] MEDS: INSULIN REGULAR (HUMAN) 100 UNIT/ML SQ SCH (21:48)
[2024-05-27 01:52] VITALS: BMI 36.1
[2024-05-27] MEDS: TRAMADOL HCL 50 MG TAB PO ONE (03:10)
[2024-05-27 04:53] LABS: Absolute Basophils 0.1 K/uL (0-0.5); Absolute Eosinophils 0.2 K/uL (0-0.5); Absolute Lymphocytes (CBC) 2.9 K/uL (0.7-4.9); Absolute Monocytes 0.5 K/uL (0.1-1.3); Absolute Neutrophil 4.1 K/uL (1.8-8.0); Basophils % 0.8 % (0-1.3); Eosinophils % 2.8 % (0-4.4); Hematocrit 38.6 % (39.6-49.0); Lymphocytes % 37.1 % (15.3-44.8); MCH 31.2 pg (27.0-35.0); MCHC 33.8 g/dL (32.0-36.0); MCV 92.4 fL (80-100); MPV 6.9 fL (7.6-11.3); Monocytes % 6.5 % (3.3-12.3); Neutrophils % 52.8 % (41.7-73.7); Nucleated Red Blood Cells % 0.1 % (0-0); Platelets 245 thou/uL (152-406); RBC Red Blood Cell Count 4.17 M/uL (4.33-5.43); Red Cell Distribution Width 15.1 % (12.1-15.2)
[2024-05-27] MEDS: ATORVASTATIN 40 MG TAB PO SCH (08:25)
[2024-05-27] MEDS: GABAPENTIN 100 MG CAP PO SCH (08:25)
[2024-05-27] MEDS: lisinopriL 20 MG TAB PO SCH (08:25)
--- NOTE | 2024-05-27 09:14 | P.PN ---
Subjective Date of Service: 05/27/24 Chief Complaint: chest pain labs reviewed has some chest wall tenderness sats stable on RA reports headache Review of Systems 10-point ROS is otherwise unremarkable Physical Examination - Vital Signs Temperature: 97.7 F Blood Pressure: 131/80 Pulse: 94 Respirations: 14 Pulse Ox (%): 93 - Physical Exam General: Oriented x3 HEENT: Other Respiratory: Clear to auscultation bilaterally, Normal air movement Cardiovascular: Normal pulses, Regular rate/rhythm, Other (chest wall tenderness with palpation) Gastrointestinal: Soft and benign, Non-distended Musculoskeletal: No swelling Neurological: Normal speech - Studies Laboratory Data (last 24 hrs) 05/26/24 05/26/24 05/26/24 13:15 13:15 13:15 WBC 7.30 Hgb 15.0 Hct 45.2 Plt Count 262 PT 10.5 INR 0.92 Sodium 131 L Potassium 4.9 BUN 29 H Creatinine 2.71 H Glucose 668 H* Magnesium 2.0 Total Bilirubin 0.2 AST 18 ALT 41 Alkaline Phosphatase 256 H Assessment And Plan - Current Problems (Diagnosis) (1) SOB (shortness of breath) Current Visit: Yes Status: Acute (2) CKD (chronic kidney disease) stage 3, GFR 30-59 ml/min Current Visit: Yes Status: Acute (3) Tobacco use disorder Current Visit: No Status: Chronic - Plan 54-year-old male with history of brain tumor,craniotomy, cancer, diabetes, hypertension last year presents with complaints of of 2-day history of chest pain shortness of breath. #COPD exacerbation #dyspnea #tobacco use --o2, nebs, prn --improved --conservative on steroids --will check d-dimer negative --trop negative #chest pain --telemetry -- troponin negative --echo --suspect he has costochondritis --iv steroids x 1 #uncontrolled DM --improved --ssi, fsbs -70/30 insulin home dose restarted #HTN --elevated, hold lisinopril for now #CKD --renal consult, dc in next 24 hours
[2024-05-27 09:21] LABS: ALT/SGPT 58 U/L (16-61); AST/SGOT 31 U/L (15-37); Albumin 2.8 g/dL (3.4-5.0); Albumin/Globulin Ratio 0.7 (1.1-1.8); Alkaline Phosphatase 200 U/L (45-117); Anion Gap 12.2 mEq/L (5.0-15.0); BUN Blood Urea Nitrogen 27 mg/dL (7-18); Bicarbonate 20 mEq/L (21-32); Globulin 3.9 g/dL (2.3-3.5); Glomerular Filtration Rate 32 ml/min (=/>90); Glucose Level 333 mg/dL (74-106); HDL Cholesterol 40 mg/dL (40-60); LDL Cholesterol, Calculated 63 mg/dL (<130); LDL Cholesterol,Calc NonReport 63; Potassium 5.2 mEq/L (3.5-5.1); Protein, Total 6.7 g/dL (6.4-8.2); Sodium Level 138 mEq/L (136-145); Troponin High Sensitivity 17.5 pg/mL (<58.9)
[2024-05-27 09:24] LABS: Bilirubin Total < 0.2 mg/dL (0.2-1.0)
[2024-05-27] MEDS: HYDROCODONE/APAP 10/325 TAB PO PRN (09:28)
[2024-05-27] MEDS: METHYLPREDNISOLONE 40 MG INJ IV ONE (09:28)
--- NOTE | 2024-05-27 12:00 | EKG ---
Test Date: 2024-05-26 Test Time: 13:01:23 Advanced Registered Nurse: YVON MEASUREMENT RESULTS: Intervals: Rate: 111 NJ: 114 QRSD: 100 QT: 332 QTc: 451 [place]: P: 62 NJ: 114 QRS: -81 T: 73 INTERPRETIVE STATEMENTS: Sinus tachycardia Left anterior fascicular block Abnormal ECG Compared to ECG 01/04/2024 13:53:35 Sinus rhythm no longer present Electronically Signed On 05-27-24 11:57:45 CDT by Randy Soares
--- NOTE | 2024-05-27 12:18 | CON ---
Date of Consultation: 05/27/2024 Reason For Consultation: Elevated BUN and creatinine, fluid management. History Of Present Illness: This is a pleasant 54-year-old gentleman, well known to me from the [facility] with significant past medical history of chronic kidney disease stage 3B/4, normal size kidney wit h proteinuria secondary to diabetes, nephropathy, hypertension nephrosclerosis. The patient apparent ly had lung cancer with DVT, diabetes complicated with neuropathy and nephropathy, brain tumor. The patient was last seen back in August 2023. The patient came to the hospital complaining of chest pain, found to have elevation in BUN and creatinine. For that reason, we have been consulted. The patien t denied taking any nonsteroidal. No recent exposure to any contrast. Over the night, the patient r eceived some hydration. Blood sugar has been better controlled. Kidney function has improved from c reatinine 2.8 down to 2.3, which is close to his baseline. The patient denied any recent change in h is medication. Past Medical History: Includes: 1. Brain tumor, status post craniotomy back in May 2023. 2. Diabetes, complicated with neuropathy and nephropathy. 3. Hypertension. 4. Hyperlipidemia. 5. Lung CA. 6. Chronic kidney disease stage 3B/4. Normal size kidney with nephrotic range proteinuria secondary to diabetes and nephropathy. Home Medications: Include lisinopril, atorvastatin, glipizide, Flexeril, hydrocodone, Topamax. Allergies: TO IODINE AND ADHESIVE. Past Surgical History: Includes: 1. Craniotomy. 2. IVC filter. 3. Tracheostomy with reversal. 4. Hernia repair. 5. . Social History: Denied smoking. Denied alcoholic drinks. Review of Systems: Head and Neck: No red eye. No ear pain. GI: Decreased intake. : No polyuria. No dysuria. No hematuria. 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 Respiratory: No shortness of breath. Cardiovascular: Has chest pain. Endocrine: No polydipsia. Skin: No rash. Neuro: Has neuropathy. Musculoskeletal: Generalized fatigue. Physical Examination: Vital Signs: When I saw the patient, blood pressure 131/80, pulse of 94, afebrile. Chest: Clear to auscultation. Heart: S1, S2. Regular. Abdomen: Soft, nontender. Extremities: No edema. Neurologic: Alert. No focality. Laboratory Data: WBC 7.7, hemoglobin 13, platelet 245. Yesterday's lab, hemoglobin 15. Sodium 131, potassium 4.9, bicarb 24, BUN 29, creatinine 2.7, glucose 668, calcium 8.9. Today, sodium 138, pota ssium 5.2, bicarb 20, BUN 27, creatinine 2.4, calcium 8.6. Albumin 2.8. Urinalysis was negative for infection. Current Medications: The patient is on include heparin, atorvastatin, gabapentin, methylprednisolone . Assessment And Plan: 1. Acute kidney injury on advanced chronic kidney disease secondary to prerenal secondary to ___ superimposed with NUVIA inhibitor. Recovered back close to baseline. Looked to me currently the p atient on normal volume. I agree with holding the lisinopril. We will continue to monitor the patie nt. We will continue better control for his blood sugar to overcome the glucodiuresis, and we will f ollow up. 2. Hypertension with the presence of recent acute kidney injury. I agree with holding the NVUIA inhibi tor. We will continue to monitor. Currently, blood pressure has been controlled. 3. Hyponatremia, depletion, resolved. 4. Marginal hyperkalemia secondary to renal failure, resolved. Keep holding NUVIA inhibitor. 5. Chronic kidney disease stage 3B secondary to diabetes, nephropathy, hypertension nephrosclerosis w ith acute kidney injury as above. 6. Diabetes, uncontrolled. As by Primary. 7. Chest pain, will follow up with Cardiology and Primary/. Thank you, Dr. Metz, for allowing us to participate in the care of your patient. Time spent examining the patient [id number]; reviewing data, lab, and radiology; placing order; dis cussing the case with the patient; discussing the case with the truck driver teamster including hospitalist and nursing staff, more than 75 minutes. BILL Voice ID: [id number] Report ID: [id number]
[2024-05-27 13:30] LABS: Urine Protein/Creatinine Ratio 2.69 ratio (<0.15)
[2024-05-27] MEDS: INSULIN GLARGINE 100 UNIT/ML SQ ONE (16:26)
[2024-05-27] MEDS: INSULIN GLARGINE 100 UNIT/ML SQ SCH (20:59)
[2024-05-27] MEDS ORDERED: INSULIN GLARGINE YFGN 100 UNIT/ML SQ SCH (21:00)
[2024-05-27] MEDS ORDERED: INSULN SQ SCH (21:00)
[2024-05-28 04:52] LABS: Absolute Eosinophils 0.2 K/uL (0-0.5); Absolute Lymphocytes (CBC) 2.6 K/uL (0.7-4.9); Absolute Monocytes 0.3 K/uL (0.1-1.3); Absolute Neutrophil 2.9 K/uL (1.8-8.0); Basophils % 0.6 % (0-1.3); Eosinophils % 3.5 % (0-4.4); Hematocrit 40.3 % (39.6-49.0); Hemoglobin 13.6 g/dL (13.6-17.9); Lymphocytes % 42.5 % (15.3-44.8); MCH 30.9 pg (27.0-35.0); MCHC 33.7 g/dL (32.0-36.0); MCV 91.8 fL (80-100); MPV 6.6 fL (7.6-11.3); Neutrophils % 48.4 % (41.7-73.7); Nucleated Red Blood Cells % 0.1 % (0-0); Platelets 247 thou/uL (152-406); RBC Red Blood Cell Count 4.39 M/uL (4.33-5.43); Red Cell Distribution Width 15.3 % (12.1-15.2)
[2024-05-28 04:55] VITALS: O2SAT 95
[2024-05-28 05:21] LABS: Albumin 2.8 g/dL (3.4-5.0); Albumin/Globulin Ratio 0.7 (1.1-1.8); Anion Gap 9.8 mEq/L (5.0-15.0); Bilirubin Total 0.2 mg/dL (0.2-1.0); Globulin 3.8 g/dL (2.3-3.5); Phosphorus 3.1 mg/dL (2.5-4.9); Potassium 4.8 mEq/L (3.5-5.1); Protein, Total 6.6 g/dL (6.4-8.2)
[2024-05-28 05:27] LABS: Thyroid Stimulating Hormone 3.84 uIU/mL (0.358-3.740)
[2024-05-28] MEDS: EZETIMIBE 10 MG TAB PO SCH (08:52)
[2024-05-28] MEDS: glipiZIDE 5 MG TAB PO SCH (08:53)
--- NOTE | 2024-05-28 10:11 | ECHO ---
HEIGHT: 5 ft 0 in WEIGHT: 189 lb 8 oz DATE OF STUDY: 05/27/[address]: Hussain Metz MD 2-DIMENSIONAL: YES M.MODE: YES DOPPLER: YES COLOR FLOW: YES TDS: YES PORTABLE: YES DEFINITY: BUBBLE STUDY: DIAGNOSIS: CHEST PAIN CARDIAC HISTORY: CATHERIZATION: SURGERY: PROSTHETIC VALVE: PACEMAKER: MEASUREMENTS (cm) DIASTOLIC (NORMALS) SYSTOLIC (NORMALS) IVSd 1.0 (0.6-1.2) LA Diam 3.0 (1.9-4.0) LVEF 55-60% LVIDd 5.2 (3.5-5.7) LVIDs 3.8 (2.0-3.5) %FS 26% LVPWd 0.9 (0.6-1.2) Ao Diam 2.8 (2.0-3.7) 2 DIMENSIONAL ASSESSMENT: RIGHT ATRIUM: NORMAL LEFT ATRIUM: NORMAL RIGHT VENTRICLE: NORMAL LEFT VENTRICLE: NORMAL TRICUSPID VALVE: NORMAL MITRAL VALVE: NORMAL PULMONIC VALVE: NORMAL AORTIC VALVE: NORMAL PERICARDIAL EFFUSION: NONE AORTIC ROOT: NORMAL LEFT VENTRICULAR WALL MOTION: NORMAL DOPPLER/COLOR FLOW: NORMAL COMMENTS: 1. NORMAL LEFT VENTRICULAR SYSTOLIC FUNCTION, EJECTION FRACTION 55-60%, NORMAL WALL MOTION TECHNOLOGIST: MANDO PACHECO
[2024-05-28] MEDS: NA CHLORIDE 0.9% 1,000 ML IV ONE (11:51)
--- NOTE | 2024-05-28 11:59 | PN ---
Date of Progress Note: 05/28/2024 Subjective: The patient was admitted to the hospital with hyperglycemia, acute kidney injury. The p atient was started on hydration. Kidney function stayed back to baseline, then plateaued. Physical Examination: Vital Signs: Blood pressure 137/92, pulse of 94, afebrile. Chest: Clear to auscultation. Heart: S1, S2. Systolic murmur. Abdomen: Soft, nontender. Extremities: No edema. Neurologic: Alert. No focality. Laboratory Data: Sodium 138, potassium 4.8, bicarb 24, BUN 28, creatinine 2.4, GFR 31, glucose is st ill above 300, calcium 8.6, phosphorus 3.1, albumin 2.8, hemoglobin 13.6. Current Medications: The patient is on include heparin, atorvastatin, Zetia, gabapentin, glipizide, insulin sliding scale 20 b.i.d., tramadol, hydrocodone. Assessment And Plan: 1. Acute kidney injury secondary to prerenal, diuresis, superimposed with NUVIA inhibitor, back to base line, normal volume to the dry side. I am going to go ahead and bolus the patient with 1 L of normal saline. We will continue to monitor the patient. We will increase insulin Lantus for better glucos e control and we will monitor. 2. Hyponatremia, depletional, resolved. 3. Hyperkalemia secondary to renal failure, resolved. 4. Hypertension, controlled, optimal with the presence of current kidney injury. Keep holding NUVIA in hibitor, lisinopril. 5. Secondary hyperparathyroidism. I am going to go ahead and start the patient on calcitriol and we will follow up. BILL Voice ID: [id number] Report ID: [id number]
[2024-05-28 12:45] VITALS: BP 138/90
[2024-05-28] MEDS: CALCITROL 0.25 MCG CAP PO SCH (13:03)
[2024-05-28] MEDS: HYDROCODONE/APAP 5/325 MG TAB PO PRN (16:06)
--- NOTE | 2024-05-28 16:06 | P.DS ---
Admission Date: 05/26/24 Discharge Date: 05/28/24 Disposition: ROUTINE DISCHARGE Discharge Condition: GOOD Reason for Admission: chest pain Consultations: Nephrology - Dr. Pitts Brief History of Present Illness: 54yo M, PMH: brain tumor, cancer, diabetes, diabetes hypertension lung CA brain surgery last year Patient presents with complaints of of 2-day history of chest pain shortness of breath. Chest pain substernal . Reports dyspnea on exertion. Denies any cough or fevers. In the ER he was noted to have elevated blood sugar. He does report having some kidney disease. Craniectomy was done at [facility] 06/11. Patient also reports having chronic headache. It was noted that his creatinine in March was 2.84 today is 2.71. 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 He received breathing treatments and steroids initially and had improvement/resolution of his shortness of breath. He reported some slight continued shortness of breath, but primarily secondary to his chest discomfort limiting his ability to take deep breaths. He had tenderness to palpation on exam on his chest/along his ribs. Hydrocodone helped with his pain. He had a mild acute kidney injury which resolved with IV fluids. Nephrology was consulted. Workup also noted secondary hyperparathyroidism, similar to in the past. He was started on calcitriol. On discharge, Nephrology recommended to continue holding lisinopril given presence of kidney injury, and blood pressure was controlled during hospitalization. Start clacitriol, and follow up with nephrology in a few weeks. Medications: [place] as needed for pain Calcitriol Of note, on day of discharge, patient reported several weeks of intermittent posterior head/neck swelling and pain. Swelling at site of surgical incision of his craniectomy from last year. CT head done on day of admission did note the fluid collection at that site was slightly bigger compared to previous CT scan done earlier this year. On my review, appears to be enlarging when comparing 12/2023 and 03/2024, and this weeks CT scan. Very slight change, but is increasing in size. No intracranial changes. Discussed with patient with his ongoing symptoms over the last several weeks and CT showing gradual increase in size - he should follow up with his neurosurgeon as soon as possible to discuss this issue. Physical Exam: GEN: Alert, oriented, NAD CV: Regular rate and rhythm, no edema Pulm: Nonlabored respirations on room air, clear bilaterally ABD: soft, nontender, nondistended Neuro: Normal speech, normal affect Vital Signs/Physical Exam: Temp Pulse Resp BP Pulse Ox 97.6 F 90 16 138/90 97 05/28/24 12:00 05/28/24 12:00 05/28/24 12:00 05/28/24 12:00 05/28/24 12:00 Laboratory Data at Discharge: WBC 6.10 thou/uL (4.3-10.9) 05/28/24 04:37 Hgb 13.6 g/dL (13.6-17.9) 05/28/24 04:37 Hct 40.3 % (39.6-49.0) 05/28/24 04:37 Plt Count 247 thou/uL (152-406) 05/28/24 04:37 PT 10.5 SECONDS (10-13.0) 05/26/24 13:15 INR 0.92 05/26/24 13:15 Sodium 138 mEq/L (136-145) 05/28/24 04:37 Potassium 4.8 mEq/L (3.5-5.1) 05/28/24 04:37 BUN 28 mg/dL (7-18) H 05/28/24 04:37 Creatinine 2.42 mg/dL (0.70-1.30) H 05/28/24 04:37 Glucose 315 mg/dL (74-106) H 05/28/24 04:37 Phosphorus 3.1 mg/dL (2.5-4.9) 05/28/24 04:37 Magnesium 2.0 mg/dL (1.6-2.4) 05/26/24 13:15 Total Bilirubin 0.2 mg/dL (0.2-1.0) 05/28/24 04:37 AST 29 U/L (15-37) 05/28/24 04:37 ALT 60 U/L (16-61) 05/28/24 04:37 Alkaline Phosphatase 192 U/L (45-117) H 05/28/24 04:37 Triglycerides Cancelled 05/27/24 05:00 Cholesterol Cancelled 05/27/24 05:00 HDL Cholesterol Cancelled 05/27/24 05:00 Cholesterol/HDL Ratio Cancelled 05/27/24 05:00 Home Medications: Atorvastatin Calcium 40 mg PO BEDTIME 11/26/20 glipiZIDE [Glipizide] 5 mg PO DAILY 11/26/20 Cetirizine HCl 10 mg PO DAILY 05/27/24 Ezetimibe [Zetia] 10 mg PO DAILY 05/27/24 Gabapentin 100 mg PO TID 05/27/24 Hydrocodone Bit/Acetaminophen [[place] 10-325 Tablet] 1 each PO Q6HP PRN 05/27/24 Insulin Aspart [Insulin Aspart Flexpen] See Protocol SQ ACHS 05/27/24 Insulin Glargine-Yfgn [Semglee (Yfgn) Pen] 20 unit SQ BEDTIME 05/27/24 clindamycin HCL [Clindamycin HCl] 300 mg PO BID 05/27/24 Calcitrol [Rocaltrol*] 0.25 mcg PO Q48H 60 Days #30 cap 05/28/24 Hydrocodone 5/APAP 325 [[place] 5/325*] 1 tab PO Q6H PRN #15 tab 05/28/24 Hydrocodone 5/APAP 325 [[place] 5/325] 1 tab PO Q6H PRN #15 tab 05/28/24 New Medications: Hydrocodone 5/APAP 325 [[place] 5/325*] 1 tab PO Q6H PRN #15 tab PRN Reason: Pain Scale 8-10 (Severe) Hydrocodone 5/APAP 325 [[place] 5/325] 1 tab PO Q6H PRN #15 tab PRN Reason: Pain Calcitrol [Rocaltrol*] 0.25 mcg PO Q48H 60 Days #30 cap Physician Discharge Instructions: Patient presented with shortness of breath and chest discomfort, due to COPD exacerbation and costochondritis. He received breathing treatments and steroids initially and had improvement/res olution of his shortness of breath. He reported some slight continued shortness of breath, but primarily secondary to his chest discomfort limiting his ability to take deep breaths. He had tenderness to palpation on exam on his chest/along his ribs. Hydrocodone helped with his pain. He had a mild acute kidney injury which resolved with IV fluids. Nephrology was consulted. Workup also noted secondary hyperparathyroidism, similar to in the past. He was started on calcitriol. On discharge, Nephrology recommended to continue holding lisinopril given presence of kidney injury, and blood pressure was controlled during hospitalization. Start clacitriol, and follow up with nephrology in a few weeks. Medications: [place] as needed for pain Calcitriol Of note, on day of discharge, patient reported several weeks of intermittent posterior head/neck swelling and pain. Swelling at site of surgical incision of his craniectomy from last year. CT head done on day of admission did note the fluid collection at that site was slightly bigger compared to previous CT scan done earlier this year. On my review, appears to be enlarging when comparing 12/2023 and 03/2024, and this weeks CT scan. Very slight change, but is increasing in size. No intracranial changes. Discussed with patient with his ongoing symptoms over the last several weeks and CT showing gradual increase in size - he should follow up with his neurosurgeon as soon as possible to discuss this issue. Followup: NONE,NONE [Primary Care Provider] -
[2024-05-28 17:16] VITALS: TEMP 98.6
[2024-05-28] MEDS ORDERED: ATORVASTATIN 40 MG TAB PO SCH (21:00)
[2024-05-28] MEDS ORDERED: INSULIN GLARGINE 100 UNIT/ML SQ SCH (21:00)
== END 2024-05-28 18:12 | disposition home or self-care (01) | DRG 191 ==
LOC: ER 12:58 → ERHOLD 16:50 → 4TH 18:16 → ERHOLD 18:31 → 2ND 20:17
PROVIDERS: ADMIT Internal Medicine; ATTEND Hospitalist
PROC: 4A033R1 Measurement of Arterial Saturation, Peripheral, Percutaneous Approach (ICD-10-PCS; principal; 2024-05-26)
DX: J44.1 Chronic obstructive pulmonary disease with (acute) exacerbation (principal); E87.1 Hypo-osmolality and hyponatremia; E87.20 Acidosis, unspecified; N18.4 Chronic kidney disease, stage 4 (severe); N17.9 Acute kidney failure, unspecified; N25.81 Secondary hyperparathyroidism of renal origin; E87.5 Hyperkalemia; M94.0 Chondrocostal junction syndrome [Tietze]; I12.9 Hypertensive chronic kidney disease with stage 1 through stage 4 chronic kidney disease, or unspecified chronic kidney disease; E11.22 Type 2 diabetes mellitus with diabetic chronic kidney disease; E11.65 Type 2 diabetes mellitus with hyperglycemia; E11.40 Type 2 diabetes mellitus with diabetic neuropathy, unspecified; E66.9 Obesity, unspecified; E78.5 Hyperlipidemia, unspecified; J44.9 Chronic obstructive pulmonary disease, unspecified; Z79.4 Long term (current) use of insulin; Z88.4 Allergy status to anesthetic agent; Z85.118 Personal history of other malignant neoplasm of bronchus and lung; Z91.048 Other nonmedicinal substance allergy status; Z87.891 Personal history of nicotine dependence; Z68.36 Body mass index [BMI] 36.0-36.9, adult; Z79.82 Long term (current) use of aspirin; Z79.899 Other long term (current) drug therapy; Z90.49 Acquired absence of other specified parts of digestive tract; Z86.718 Personal history of other venous thrombosis and embolism
CPT/HCPCS: 36415; 36600; 70450; 71045; 80048; 80053; 80061; 80069; 80076; 81001; 82550; 82570; 82805; 82947; 83605; 83735; 83880; 83930; 83970; 84156; 84439; 84443; 84484; 85025; 85379; 85610; 87040; 93005; 93306; 96372; 99285; J0696; J1644; J1815; J2919; J3475; J7030; J7614; J7644

== ENCOUNTER 2024-12-14 19:06 | Emergency (ER) | payer OTHER ==
[2024-12-14] MEDS ORDERED: ONDANSETRON 4 MG/2 ML VIAL ONE (19:50)
[2024-12-14] MEDS ORDERED: HYDROMORPHONE HCL 1 MG/ML INJ ONE ×2 (19:50→20:43)
[2024-12-14 19:59] LABS: Absolute Lymphocytes (CBC) 2.5 K/uL (0.7-4.9); Hematocrit 47.6 % (39.6-49.0); Hemoglobin 16.4 g/dL (13.6-17.9); MCH 30.8 pg (27.0-35.0); MCHC 34.5 g/dL (32.0-36.0); MCV 89.2 fL (80-100); MPV 7.4 fL (7.6-11.3); Nucleated RBC Absolute Count 0.0 (0-0); Nucleated Red Blood Cells % 0.2 % (0-0); RBC Red Blood Cell Count 5.33 M/uL (4.33-5.43); White Blood Count 9.90 thou/uL (4.3-10.9)
[2024-12-14 20:08] LABS: PT Prothrombin Time 10.9 SECONDS (10-13.0); Protime INR 0.96
[2024-12-14 20:28] LABS: ALT/SGPT 26 U/L (16-61); Albumin 3.0 g/dL (3.4-5.0); Albumin/Globulin Ratio 0.7 (1.1-1.8); Alkaline Phosphatase 199 U/L (45-117); Anion Gap 12.7 mEq/L (5.0-15.0); BUN Blood Urea Nitrogen 26 mg/dL (7-18); Globulin 4.1 g/dL (2.3-3.5); Glucose Level 314 mg/dL (74-106); Lipase 53 U/L (13-75); Magnesium 2.0 mg/dL (1.6-2.4); NT PRO-BNP 513 pg/mL (<125); Potassium 3.7 mEq/L (3.5-5.1); Troponin High Sensitivity 13.7 pg/mL (<58.9)
--- NOTE | 2024-12-14 20:33 | RAD REPORT ---
EXAMINATION: Abdomen Pelvis Wo Contrast CLINICAL INDICATION: Male, 54 years old.lower abd pain; h/o lung CA with mets;Abd pain TECHNIQUE: CT abdomen and pelvis was performed, without IV contrast, as per department protocol. Axia l, sagittal and coronal reconstructions were obtained. One or more of the following dose reduction techniques were used: Automated exposure control, adjustment of the mA and/or kV according to the pat ient size, and/or iterative reconstruction. Unless otherwise specified, incidental findings do not require dedicated imaging follow-up. [id number]. IV CONTRAST: Not administered. COMPARISON: No prior exams FINDINGS: The lack of intravenous contrast limits the sensitivity of this exam for evaluation of solid visceral organs, vascular structures, and retroperitoneum. LOWER CHEST: No acute process identified. No significant pericardial effusion. Mild circumferential t hickening of the distal esophagus which could reflect esophagitis. UPPER GI: No significant abnormality. LIVER: No significant focal abnormality. GALLBLADDER/BILE DUCTS: No biliary ductal dilatation.? PANCREAS: No mass, ductal dilation, or marcial-pancreatic fluid. SPLEEN: Unremarkable. ADRENALS: No adrenal masses. KIDNEYS AND URETERS: No hydronephrosis. Low density and/or too small to characterize renal lesions wh ich are statistically benign. Nonobstructing renal calculi. No ureteral calculi. ABDOMINAL AORTA AND OTHER VESSELS: Normal caliber aorta and IVC. IVC filter. PERITONEUM: No abnormal free fluid. No free air. LYMPH NODES: No pathologic lymphadenopathy. ABDOMINAL WALL: Right inguinal hernia repair. SMALL BOWEL/COLON: Small bowel has normal course and caliber. No colonic wall thickening or pericolon ic inflammatory changes. Normal appendix. URINARY BLADDER: Underdistended but grossly unremarkable. REPRODUCTIVE ORGANS: Mild prostatomegaly. MUSCULOSKELETAL: No acute or suspicious osseous abnormality. ADDITIONAL FINDINGS: None. IMPRESSION: No acute findings within the abdomen or pelvis. Normal appendix.
[2024-12-14 20:36] LABS: AST/SGOT < 10 U/L (15-37); Bilirubin Indirect, Calculated 0.1 mg/dL (0.2-0.8)
[2024-12-14] MEDS ORDERED: NA CHLORIDE 0.9% 1,000 ML ONE (20:44)
[2024-12-14 21:02] LABS: Sqamous Epithelial <5 /HPF (None Seen); Urine Crystals Unidentified Few /HPF (None Seen); Urine Culture Reflex Order NOT NEEDED; Urine Microscopic Reflex YN ORDER UMIC; Urine Yeast (Budding) Trace /HPF (None Seen)
--- NOTE | 2024-12-14 21:55 | ER ---
Nurse's Notes [facility] Name: Sanjeev Mcpherson Age: 54 yrs Sex: Male : 1970 Arrival Date: 12/14/2024 Time: 19:06 Bed 19 Private MD: Diagnosis: Abdominal wall cellulitis, abdominal pain Presentation: 12/14 19:16 Chief complaint: Patient states: c/o bilateral lower abdominal pain with n/v and a me1 severe headache that started yesterday. Reports abscess to abdominal area that come and go for about a year. Verbalized concern as he has had brain cancer removed x2. Pain level 7/10. Coronavirus screen: Vaccine status: Patient reports receiving the 2nd dose of the covid vaccine. Ebola Screen: No symptoms or risks identified at this time. Initial Sepsis Screen: Does the patient meet any 2 criteria? HR > 90 bpm. Does the patient have a suspected source of infection? No. Patient's initial sepsis screen is negative. Risk Assessment: Do you want to hurt yourself or someone else? Patient reports no desire to harm self or others. Onset of symptoms was December 13, 2024. 19:16 Method Of Arrival: Ambulatory me1 19:16 Acuity: JULIANNE 3 me1 Historical: - Allergies: 19:20 Adhesives; tape; me1 19:20 Anesthetics - Amide Type; me1 19:20 Iodine; me1 - PMHx: 19:20 BRAIN TUMOR; Cancer; Diabetes - NIDDM; Hyperlipidemia; Hypertension; Lung Cancer; me1 - PSHx: 19:20 Brain tumor removed; hernia repair; me1 - Immunization history:: Adult Immunizations up to date. - Infectious Disease History:: Denies. - Social history:: Smoking status: Patient/guardian denies using tobacco, but has a distant history of tobacco abuse. Screenin:49 [facility] ED Fall Risk Assessment (Adult) History of falling in the last 3 months, bm8 including since admission No falls in past 3 months (0 pts) Confusion or Disorientation No (0 pts) Intoxicated or Sedated No (0 pts) Impaired Gait No (0 pts) Mobility Assist Device Used No (0 pt) Altered Elimination No (0 pt) Score/Fall Risk Level 0 - 2 = Low Risk Oriented to surroundings, Maintained a safe environment, Educated pt \T\ family on fall prevention, incl call for assistance when getting out of bed, Assessed \T\ reinforced patient's understanding of fall precautions, Hourly rounding (assess needs \T\ fall precautionary measures) done, Used ambulatory aids as needed (educated on \T\ assisted with), Used gait belt as appropriate. Abuse screen: Denies threats or abuse. Nutritional screening: No deficits noted. Tuberculosis screening: No symptoms or risk factors identified. Assessment: 20:49 General: Appears uncomfortable, Behavior is calm, cooperative, appropriate for age. bm8 Pain: Complains of pain in right lower quadrant, left lower quadrant, suprapubic area, right iliac crest and left iliac crest Pain currently is 8 out of 10 on a pain scale. Quality of pain is described as burning, aching, crampy. Neuro: No deficits noted. Cardiovascular: No deficits noted. Respiratory: No deficits noted. GI: Abdomen is flat, non-distended, Bowel sounds present X 4 quads. Abdomen is tender to palpation in suprapubic area, right lower quadrant and left lower quadrant Reports lower abdominal pain, nausea, Pain is 8 out of 10 on a pain scale. : No signs and/or symptoms were reported regarding the genitourinary system. EENT: No signs and/or symptoms were reported regarding the EENT system. Derm: No signs and/or symptoms reported regarding the dermatologic system. Musculoskeletal: No signs and/or symptoms reported regarding the musculoskeletal system. 21:26 Reassessment: Patient appears in no apparent distress at this time. Patient and/or bm8 family updated on plan of care and expected duration. Pain level reassessed. Patient is alert, oriented x 3, equal unlabored respirations, skin warm/dry/pink. Pain: Complains of pain in suprapubic area, right lower quadrant and left lower quadrant Pain currently is 6 out of 10 on a pain scale. 21:52 Reassessment: Patient appears in no apparent distress at this time. Patient and/or bm8 family updated on plan of care and expected duration. Pain level reassessed. Patient is alert, oriented x 3, equal unlabored respirations, skin warm/dry/pink. Patient states feeling better. Patient states symptoms have improved. Vital Signs: 19:16 BP 141 / 93; Pulse 113; Resp 20; Temp 98.5; Pulse Ox 98% ; Weight 74.84 kg; Height 5 me1 ft. 0 in. ; Pain 7/10; 20:49 BP 135 / 85; Pulse 95; Resp 19; Temp 98.5; Pulse Ox 93% ; Pain 8/10; bm8 21:26 BP 118 / 83; Pulse 96; Resp 17; Temp 98.5; Pulse Ox 99% ; Pain 6/10; bm8 21:52 BP 121 / 80; Pulse 89; Resp 17; Temp 98.5; Pulse Ox 97% ; Pain 6/10; bm8 19:16 Body Mass Index 32.22 (74.84 kg, 152.4 cm) me1 19:16 Pain Scale: Adult me1 20:49 Pain Scale: Adult bm8 21:26 Pain Scale: Adult bm8 21:52 Pain Scale: Adult bm8 Shireen Coma Score: 20:49 Eye Response: spontaneous(4). Motor Response: obeys commands(6). Verbal Response: bm8 oriented(5). Total: 15. 21:26 Eye Response: spontaneous(4). Motor Response: obeys commands(6). Verbal Response: bm8 oriented(5). Total: 15. 21:52 Eye Response: spontaneous(4). Motor Response: obeys commands(6). Verbal Response: bm8 oriented(5). Total: 15. ED Course: 19:09 Patient arrived in ED. al6 19:09 Zoë Harris MD is Attending Physician. sp3 19:20 Triage completed. me1 19:20 Arm band placed on Patient placed in an exam room. me1 19:47 Inserted saline lock: 20 gauge in right forearm, using aseptic technique. Blood al5 collected. Flushed with 10 mL NS. 19:48 Dre Joshua, RN is Primary Nurse. bm8 19:53 EKG done, by special systems technician. reviewed by Zoë Harris MD. ts3 20:08 Abdomen In Process Unspecified. EDMS 20:49 Patient has correct armband on for positive identification. Bed in low position. Call bm8 light in reach. Side rails up X 1. Client placed on continuous cardiac and pulse oximetry monitoring. NIBP monitoring applied. social science teacher on. Pulse ox on. NIBP on. Door closed. Noise minimized. Warm blanket given. Pillow given. Verbal reassurance given. Head of bed elevated. 20:49 No provider procedures requiring assistance completed. Patient maintains SpO2 bm8 saturation greater than 95% on room air. 21:52 Provided Education on: post er care. bm8 21:57 IV discontinued, intact, bleeding controlled, No redness/swelling at site. Pressure bm8 dressing applied. Administered Medications: 20:06 Drug: HYDROmorphone IVP 1 mg IVP once Route: IVP; Site: right forearm; bm8 20:38 Follow up: Response: No adverse reaction bm8 20:06 Drug: Ondansetron IVP 4 mg IVP once; over 2 minutes Route: IVP; Site: right forearm; bm8 20:38 Follow up: Response: No adverse reaction bm8 20:49 Drug: HYDROmorphone IVP 1 mg IVP once Route: IVP; Site: right forearm; bm8 21:27 Follow up: Response: No adverse reaction bm8 20:49 Drug: NS 0.9% IV 1000 ml IV at 1 bolus Per protocol; to be given as a bolus over 60 bm8 minutes Route: IV; Rate: 1 bolus; Site: right forearm; 21:27 Follow up: Response: No adverse reaction; IV Status: Completed infusion bm8 Medication: 20:49 VIS not applicable for this client. bm8 Outcome: 21:55 Discharge ordered by sp3 21:58 Discharged to home ambulatory, with family, bm8 21:58 Condition: stable 21:58 Discharge instructions given to patient, family, Instructed on discharge instructions, follow up and referral plans. no drinking with medication, no driving heavy equipment, medication usage, safety practices, wound care, Demonstrated understanding of instructions, follow-up care, medications, Prescriptions given X 2, 22:03 Patient left the ED. bm8 Signatures: Dispatcher [employer] EDZoë Guy MD MD sp3 Tierney Le, RN RN me1 Dre Joshua RN RN bm8 Randi Dodson RN RN al5 Maki Samaniego al6 Oliva Mitchell ts3 Corrections: (The following items were deleted from the chart) 21:52 21:52 Reassessment: Patient appears in no apparent distress at this time. No changes bm8 from previously documented assessment. Patient and/or family updated on plan of care and expected duration. Pain level reassessed. Patient is alert, oriented x 3, equal unlabored respirations, skin warm/dry/pink. Patient states feeling better. Patient states symptoms have improved. bm8
--- NOTE | 2024-12-14 21:56 | EDPHYS ---
Physician Documentation [facility] Name: Sanjeev Mcpherson Age: 54 yrs Sex: Male : 1970 Arrival Date: 12/14/2024 Time: 19:06 Bed 19 Private MD: ED Physician Zoë Harris HPI: 12/14 19:38 This 54 yrs old Male presents to ER via Ambulatory with complaints of sp3 Vomiting, Abdominal Pain, Headache. 19:38 54-year-old male with history of lung cancer with prior brain metastases status post sp3 resection, diabetes, hyperlipidemia, hypertension presents to the ED with chief complaint near lower abdominal pain for the last several days. Patient also has had pannus cellulitis off and on for approximately 1 year. He denies any difficulty breathing, chest pain, back pain, headache beyond his baseline headaches that he is continuously gotten since his surgery years ago. Denies fever, vomiting, diarrhea, nausea, flank pain, known sick contacts, travel history, or any other signs or symptoms on ROS at this time.. Historical: - Allergies: 19:20 Adhesives; tape; me1 19:20 Anesthetics - Amide Type; me1 19:20 Iodine; me1 - PMHx: 19:20 BRAIN TUMOR; Cancer; Diabetes - NIDDM; Hyperlipidemia; Hypertension; Lung Cancer; me1 - PSHx: 19:20 Brain tumor removed; hernia repair; me1 - Immunization history:: Adult Immunizations up to date. - Infectious Disease History:: Denies. - Social history:: Smoking status: Patient/guardian denies using tobacco, but has a distant history of tobacco abuse. ROS: 19:40 Constitutional: Negative for fever, chills, and weight loss, Eyes: Negative for injury, sp3 pain, redness, and discharge, ENT: Negative for injury, pain, and discharge, Neck: Negative for injury, pain, and swelling, Cardiovascular: Negative for chest pain, palpitations, and edema, Respiratory: Negative for shortness of breath, cough, wheezing, and pleuritic chest pain, Back: Negative for injury and pain, MS/Extremity: Negative for injury and deformity, Skin: Negative for injury, rash, and discoloration, Neuro: Negative for headache, weakness, numbness, tingling, and seizure, Psych: Negative for depression, anxiety, suicide ideation, homicidal ideation, and hallucinations, Allergy/Immunology: Negative for hives, rash, and allergies, Endocrine: Negative for neck swelling, polydipsia, polyuria, polyphagia, and marked weight changes, Hematologic/Lymphatic: Negative for swollen nodes, abnormal bleeding, and unusual bruising, 19:40 All other systems are negative, Exam: 19:40 Constitutional: This is a well developed, well nourished patient who is awake, alert, sp3 and in no acute distress. Head/Face: Normocephalic, atraumatic. Eyes: Pupils equal round and reactive to light, extra-ocular motions intact. Lids and lashes normal. Conjunctiva and sclera are non-icteric and not injected. Cornea within normal limits. Periorbital areas with no swelling, redness, or edema. Neck: Trachea midline, no thyromegaly or masses palpated, and no cervical lymphadenopathy. Supple, full range of motion without nuchal rigidity, or vertebral point tenderness. No Meningismus. Chest/axilla: Normal chest wall appearance and motion. Nontender with no deformity. No lesions are appreciated. Cardiovascular: Regular rate and rhythm with a normal S1 and S2. No gallops, murmurs, or rubs. Normal PMI, no JVD. No pulse deficits. Respiratory: Lungs have equal breath sounds bilaterally, clear to auscultation and percussion. No rales, rhonchi or wheezes noted. No increased work of breathing, no retractions or nasal flaring. Back: No spinal tenderness. No costovertebral tenderness. Full range of motion. Skin: Warm, dry with normal turgor. Normal color with no rashes, no lesions, and no evidence of cellulitis. MS/ Extremity: Pulses equal, no cyanosis. Neurovascular intact. Full, normal range of motion. Neuro: Awake and alert, GCS 15, oriented to person, place, time, and situation. Cranial nerves II-XII grossly intact. Motor strength 5/5 in all extremities. Sensory grossly intact. Cerebellar exam normal. Normal gait. Psych: Awake, alert, with orientation to person, place and time. Behavior, mood, and affect are within normal limits. 19:40 Abdomen/GI: Pain to palpation lower quadrants without peritoneal signs, rebound or guarding. Mild skin cellulitis with 1 superficial cutaneous abscess also noted., 19:52 ECG was reviewed by the Attending Physician. EKG demonstrates normal sinus rhythm at 90 sp3 bpm with normal intervals, normal QRS, normal axis and normal ST/T segments without evidence of acute ischemia. Vital Signs: 19:16 BP 141 / 93; Pulse 113; Resp 20; Temp 98.5; Pulse Ox 98% ; Weight 74.84 kg; Height 5 me1 ft. 0 in. ; Pain 7/10; 20:49 BP 135 / 85; Pulse 95; Resp 19; Temp 98.5; Pulse Ox 93% ; Pain 8/10; bm8 21:26 BP 118 / 83; Pulse 96; Resp 17; Temp 98.5; Pulse Ox 99% ; Pain 6/10; bm8 21:52 BP 121 / 80; Pulse 89; Resp 17; Temp 98.5; Pulse Ox 97% ; Pain 6/10; bm8 19:16 Body Mass Index 32.22 (74.84 kg, 152.4 cm) me1 19:16 Pain Scale: Adult me1 20:49 Pain Scale: Adult bm8 21:26 Pain Scale: Adult bm8 21:52 Pain Scale: Adult bm8 [place] Coma Score: 20:49 Eye Response: spontaneous(4). Motor Response: obeys commands(6). Verbal Response: bm8 oriented(5). Total: 15. 21:26 Eye Response: spontaneous(4). Motor Response: obeys commands(6). Verbal Response: bm8 oriented(5). Total: 15. 21:52 Eye Response: spontaneous(4). Motor Response: obeys commands(6). Verbal Response: bm8 oriented(5). Total: 15. MDM: 19:15 Medical Screening Exam initiated sp3 19:40 Data reviewed: vital signs, nurses notes, EMS record, old medical records, lab test sp3 result(s), EKG, radiologic studies. ED course: 54-year-old male with PMH above note lower abdominal pain. Differential diagnosis is broad and includes new tumor or cancer related process, constipation, colitis, appendicitis, other enteritis, pathology, UTI/pyelonephritis spectrum, kidney stone, musculoskeletal, ileus, obstruction, among others. Workup will be broad to include CT scan of the abdomen pelvis without contrast due to allergy, general labs, EKG, lactate, and treatment with IV fluids with further management as needed. Disposition pending workup and patient course.. 21:54 ED course: Workup negative. Creatinine at normal baseline. CT demonstrates no sp3 abnormality. Will treat abdominal cellulitis with antibiotics and pain control. Follow-up with PCP. Vital signs remain normal.. 12/14 19:28 Order name: Basic Metabolic Panel; Complete Time: 20:41 sp3 12/14 19:28 Order name: CBC with Diff; Complete Time: 20:41 sp3 12/14 19:28 Order name: LFT's; Complete Time: 20:41 sp3 12/14 19:28 Order name: Magnesium; Complete Time: 20:41 sp3 12/14 19:28 Order name: NT PRO-BNP; Complete Time: 20:41 sp3 12/14 19:28 Order name: PT-INR; Complete Time: 20:41 sp3 12/14 19:28 Order name: Troponin HS; Complete Time: 20:41 sp3 12/14 19:28 Order name: Lactate w/ 2H reflex if indic.; Complete Time: 20:41 sp3 12/14 19:28 Order name: Lipase; Complete Time: 20:41 sp3 12/14 19:28 Order name: UA Rfx Carson Cult if indicated; Complete Time: 21:11 sp3 12/14 19:42 Order name: Abdomen ; Complete Time: 20:41 EDMS 12/14 19:28 Order name: EKG; Complete Time: 19:29 sp3 12/14 19:28 Order name: Cardiac monitoring; Complete Time: 19:47 sp3 12/14 19:28 Order name: EKG - Nurse/Tech; Complete Time: 19:47 sp3 12/14 19:28 Order name: IV Saline Lock; Complete Time: 19:47 sp3 12/14 19:28 Order name: Labs collected and sent; Complete Time: 19:47 sp3 12/14 19:28 Order name: O2 Per Protocol; Complete Time: 19:47 sp3 12/14 19:28 Order name: O2 Sat Monitoring; Complete Time: 19:47 sp3 Administered Medications: 20:06 Drug: HYDROmorphone IVP 1 mg IVP once Route: IVP; Site: right forearm; bm8 20:38 Follow up: Response: No adverse reaction bm8 20:06 Drug: Ondansetron IVP 4 mg IVP once; over 2 minutes Route: IVP; Site: right forearm; bm8 20:38 Follow up: Response: No adverse reaction bm8 20:49 Drug: HYDROmorphone IVP 1 mg IVP once Route: IVP; Site: right forearm; bm8 21:27 Follow up: Response: No adverse reaction bm8 20:49 Drug: NS 0.9% IV 1000 ml IV at 1 bolus Per protocol; to be given as a bolus over 60 bm8 minutes Route: IV; Rate: 1 bolus; Site: right forearm; 21:27 Follow up: Response: No adverse reaction; IV Status: Completed infusion bm8 Disposition Summary: 12/14/24 21:55 Discharge Ordered Notes: Location: Home sp3 Condition: Stable sp3 Diagnosis - Abdominal wall cellulitis, abdominal pain sp3 Followup: sp3 - With: Private Physician - When: Upon discharge from the Emergency Department - Reason: Continuance of care Discharge Instructions: - Discharge Summary Sheet sp3 - Cellulitis, Adult sp3 Forms: - Medication Reconciliation Form sp3 - Antibiotic Education sp3 - Prescription Opioid Use sp3 - Patient Portal Instructions sp3 - Leadership Thank You Letter sp3 Prescriptions: - Tramadol 50 mg Oral Tablet - take 1 tablet ORAL route every 8 hours as needed; 12 tablet; Refills: 0, sp3 Product Selection Permitted - Bactrim DS 800-160 mg Oral Tablet - take 1 tablet ORAL route every 12 hours for 7 days; 14 tablet; Refills: 0, sp3 Product Selection Permitted Signatures: Dispatcher [employer] Zoë Xavier MD MD sp3 Tierney Le, RN RN me1 Dre Joshua RN RN bm8 Corrections: (The following items were deleted from the chart) 19:42 19:29 Abdomen Pelvis W [id number] ordered. EDMS EDMS
[2024-12-15 06:21] VITALS: TEMP 98.5
[2024-12-15 06:25] VITALS: BP 121/80; O2SAT 97
== END 2024-12-14 22:03 | disposition home or self-care (01) ==
LOC: ER 19:06
DX: L03.311 Cellulitis of abdominal wall (principal); R10.9 Unspecified abdominal pain; R51.9 Headache, unspecified; R11.10 Vomiting, unspecified; E11.9 Type 2 diabetes mellitus without complications; E78.5 Hyperlipidemia, unspecified; I10 Essential (primary) hypertension; Z85.118 Personal history of other malignant neoplasm of bronchus and lung; Z85.841 Personal history of malignant neoplasm of brain
CPT/HCPCS: 96361; 93005; 85025; 81001; 80048; 36415; 83735; 85610; 80076; 83605; 84484; 83690; 83880; 74176; 96375; 96374; 99285; J1171 ×2; J2405; J7030